=== PATIENT | male | born 1950 | race Caucasian/White ===

== ENCOUNTER → 2016-04-03 | Outpatient (CLI) | payer BC ==
[~2016-04-03] MED LIST: AMOX500C3 PO; CHLO4LIQ TOP; CINN1CAP2 PO; CYAN1DRO IM; DILT120C51 PO; DILT120C99 PO; FENO1TAB PO; FLM4 PO; GABA1CAP PO; GLIP10TA9 PO; HYDR-5688 PO; INSDGI SC; INSDGIPEN SC; LISI10TA PO; LORA-741 PO; LPR25 PO; METF-384 PO; METO-551 PO; METO50TA16 PO; METO50TA7 PO; MULT-506 PO; MUPIOIN4 TOP; NVLGI/PEN SC; OMEG12006 PO; PREG1CAP70 PO; ROSU5TAB PO; SIMV20TA2 PO; SULF-183 PO; TAMS0.4C38 PO; TRAM-10 PO; WARF-285 PO; WARF3TAB6 PO
[2016-04-03 09:58] LABS: URINE APPEARANCE CLEAR (CLEAR); URINE BILIRUBIN NEG (NEG); URINE NITRITE NEG (NEG); URINE PH 5.5 (4.5-7.5); URINE SPECIFIC GRAVITY 1.014 (1.000-1.030); UROBILINOGEN NEG (NEG)
[2016-04-03 10:00] LABS: BLOOD UREA NITROGEN 29 mg/dl (7-18); GLUCOSE 131 mg/dl (70-99)
[2016-04-03 10:01] LABS: ALT/SGPT 26 U/L (12-78); AST/SGOT 24 U/L (15-37); CALCIUM 9.5 mg/dl (8.5-10.1); CARBON DIOXIDE 26 mmol/L (21-32); CHLORIDE 108 mmol/L (98-107); CHOLESTEROL 154 mg/dl (0-200); POTASSIUM 4.5 mmol/L (3.5-5.1); SODIUM 143 mmol/L (136-145)
[2016-04-03 10:03] LABS: MANUAL MICROSCOPIC REQUIRED? NO; REVIEW REQ? NO; URINE COLOR STRAW
[2016-04-03 10:05] LABS: ALB/GLOB RATIO 1.1 (0.9-2); ALKALINE PHOSPHATASE 56 U/L (45-117); CHOLESTEROL/HDL RATIO 6.2; HDL CHOLESTEROL 25 mg/dl; LDL CHOLESTEROL CALCULATED 89 mg/dl; PHOSPHORUS 2.9 mg/dl (2.5-4.9); TRIGLYCERIDES 200 mg/dl (0-150); VERY LOW DENSITY LIPOPROT CALC 40 mg/dl
== END | disposition home or self-care (01) ==
LOC: C.LAB1850 07:16
PROVIDERS: ATTEND Internal Medicine
DX: N18.3 Chronic kidney disease, stage 3 (moderate) (principal); E78.5 Hyperlipidemia, unspecified; Z12.5 Encounter for screening for malignant neoplasm of prostate; N40.0 Benign prostatic hyperplasia without lower urinary tract symptoms

== ENCOUNTER → 2016-05-13 | Outpatient (CLI) | payer BC ==
--- NOTE | 2016-05-13 16:54 | DIAGNOSTIC IMAGING REPORT ---
ABDOMEN AND PELVIS CT WITHOUT CONTRAST CT DOSE: 1108.51 mGycm HISTORY: R31.9 [id number] Stage III chronic kidney [id number] Blood TECHNIQUE: Multiaxial CT images of the abdomen and pelvis were performed without contrast. COMPARISON STUDY: 10/25/2006 FINDINGS: Mild dependent basilar atelectasis. Slightly progressive renal cystic change bilaterally splenic cyst medial aspect left kidney. Bladder is negative for distention. Gallbladder is negative for distention. Mildly progressive bilateral renal cystic change. Mild renal cortical scarring bilaterally. 1.6 cm nonobstructing calcification central renal pelvis. The adrenal glands are normal. Ureters normal in course and caliber. No evidence for an obstructing urinary tract calculus. Nonobstructive bowel pattern. Normal appendix. IMPRESSION: 1. Nonobstructing left renal pelvic calcification. 2. Bilateral renal cystic changes somewhat progressive compared to the prior study of 2006. 3. No evidence for hydronephrosis. 4. Study is otherwise negative. Electronically signed by: Flash Milian M.D. 05/13/2016 4:53 PM Dictated Date/Time: 05/13/2016 4:49 PM
[2016-05-13 17:15] LABS: BASO % 0.3 %; BASO ABS # 0.03 K/uL (0-0.2); COMPLETE YES; EOS % 1.6 %; IG% 0.3 %; LYMPH % 18.3 %; LYMPH ABS # 2.04 K/uL (1.2-3.4); MEAN CELL VOLUME 92.6 fL (80-100); MEAN CORPUSCULAR HEMOGLOBIN 31.7 pg (25-34); MEAN CORPUSCULAR HGB CONC 34.3 g/dl (32-36); MEAN PLATELET VOLUME 10.1 fL (7.4-10.4); MONO % 11.5 %; PLATELET COUNT 310 K/uL (130-400); RED BLOOD COUNT 4.32 M/uL (4.7-6.1); WHITE BLOOD COUNT 11.12 K/uL (4.8-10.8)
[2016-05-13 17:36] LABS: BLOOD UREA NITROGEN 33 mg/dl (7-18); BUN/CREATININE RATIO 14.8 (10-20); CARBON DIOXIDE 25 mmol/L (21-32); CHLORIDE 108 mmol/L (98-107); GLUCOSE 65 mg/dl (70-99); POTASSIUM 4.5 mmol/L (3.5-5.1); SODIUM 141 mmol/L (136-145)
[2016-05-14 06:17] LABS: ESTIMATED AVERAGE GLUCOSE 137 mg/dl; HA1C FLAG Normal (Normal)
== END | disposition home or self-care (01) ==
LOC: C.CTS 16:28
PROVIDERS: ATTEND Physician Assistant
DX: K92.1 Melena (principal); N18.3 Chronic kidney disease, stage 3 (moderate); R31.9 Hematuria, unspecified; R10.814 Left lower quadrant abdominal tenderness

== ENCOUNTER → 2016-05-22 | Outpatient (CLI) | payer BC | END | disposition home or self-care (01) | LOC: C.LAB 08:16 | PROVIDERS: ATTEND Internal Medicine | DX: E53.8 Deficiency of other specified B group vitamins (principal) ==

== ENCOUNTER → 2016-05-22 | Outpatient (CLI) | payer BC ==
[2016-05-22 12:22] LABS: URINE APPEARANCE CLEAR (CLEAR); URINE BILIRUBIN NEG (NEG); URINE NITRITE NEG (NEG); URINE PH 6.5 (4.5-7.5); URINE SPECIFIC GRAVITY 1.017 (1.000-1.030); UROBILINOGEN NEG (NEG)
[2016-05-22 12:23] LABS: MANUAL MICROSCOPIC REQUIRED? NO; REVIEW REQ? NO; URINE COLOR AMBER
--- NOTE | 2016-05-22 12:26 | DIAGNOSTIC IMAGING REPORT ---
CHEST 2 VIEWS ROUTINE CLINICAL HISTORY: Left-sided kidney stone. Preoperative chest. COMPARISON STUDY: 12/03/2012 FINDINGS: The right-sided PICC catheter is been removed. A valve ring is again visualized. The heart is mildly enlarged. There is no failure. There is no focal pulmonary consolidation. No pleural effusions are visualized. There are postsurgical changes in the right shoulder.[ IMPRESSION: No active disease in the chest. Electronically signed by: Sridhar Peterson M.D. 05/22/2016 12:24 PM Dictated Date/Time: 05/22/2016 12:23 PM
== END | disposition home or self-care (01) ==
LOC: C.CPL 11:21
PROVIDERS: ATTEND Urology
DX: N20.0 Calculus of kidney (principal)

== ENCOUNTER → 2016-05-28 | Outpatient (CLI) | payer BC ==
[~2016-05-28] MED LIST changes: -CHLO4LIQ TOP; -CINN1CAP2 PO; -GABA1CAP PO; -GLIP10TA9 PO; -METF-384 PO; -METO-551 PO; -MULT-506 PO; -MUPIOIN4 TOP; -SULF-183 PO
--- NOTE | 2016-05-28 17:13 | DIAGNOSTIC IMAGING REPORT ---
KUB CLINICAL HISTORY: Left-sided kidney stone. COMPARISON STUDY: CT of the abdomen and pelvis May 13, 2016. FINDINGS: A left pelvic calcification was shown to represent a phlebolith on prior CT. The large left renal calculus shown on prior CT is not well visualized on this exam but could be obscured by stool. IMPRESSION: Left renal calculus shown on prior CT not definitively visualized on this exam, possibly due to radiographic technique or obscuration by stool. Electronically signed by: Mc Concepcion M.D. 05/28/2016 5:11 PM Dictated Date/Time: 05/28/2016 5:06 PM
== END | disposition home or self-care (01) ==
LOC: C.RAD 16:45
PROVIDERS: ATTEND Urology
DX: N20.0 Calculus of kidney (principal)

== ENCOUNTER → 2016-05-29 | Day surgery (SDC) | payer BC ==
[2016-05-26 09:46] VITALS: Ht 167.6 cm; Wt 102.3 kg
[~2016-05-29] VITALS: Ht 167.6 cm; Wt 102.3 kg
[~2016-05-29] MED LIST changes: +CIPROFLOXACIN 400MG / D5W IV SCH; +DEXAMETHASONE SOD INJ 4 MG/ML VIAL ONE; +FENTANYL CITRATE INJ 50 MCG/1 ML 2 ML VIAL ONE; +LACTATED RINGER'S 1000ML 1,000 ML IV SCH; +LIDOCAINE HCL 2% 2 ML VIAL (20MG/ML) ONE; +MIDAZOLAM HCL 1 MG/ML 2ML VIAL ONE; +ONDANSETRON INJ 2 MG/ML 2 ML VIAL ONE; +PROPOFOL IV EMULSION 10 MG/ML 20 ML VIAL IV ONE
[2016-05-29 06:28] VITALS: BP 93/67; PULSE 63; TEMP 36.7; O2SAT 94
[2016-05-29 07:12] LABS: INR 1.4 (0.9-1.1); PROTHROMBIN TIME (PATIENT) 15.4 SECONDS (9.0-12.0)
== END | disposition home or self-care (01) ==
LOC: X.SURG 06:05
PROVIDERS: ATTEND Urology
DX: N20.0 Calculus of kidney (principal); N40.0 Benign prostatic hyperplasia without lower urinary tract symptoms; N28.1 Cyst of kidney, acquired

== ENCOUNTER → 2016-07-07 | Outpatient (CLI) | payer BC ==
[~2016-07-07] MED LIST changes: -CIPROFLOXACIN 400MG / D5W IV SCH; -DEXAMETHASONE SOD INJ 4 MG/ML VIAL ONE; -FENTANYL CITRATE INJ 50 MCG/1 ML 2 ML VIAL ONE; -LACTATED RINGER'S 1000ML 1,000 ML IV SCH; -LIDOCAINE HCL 2% 2 ML VIAL (20MG/ML) ONE; -MIDAZOLAM HCL 1 MG/ML 2ML VIAL ONE; -ONDANSETRON INJ 2 MG/ML 2 ML VIAL ONE; -PROPOFOL IV EMULSION 10 MG/ML 20 ML VIAL IV ONE
[2016-07-07 09:55] LABS: ALT/SGPT 18 U/L (12-78); BLOOD UREA NITROGEN 34 mg/dl (7-18); BUN/CREATININE RATIO 17.1 (10-20); CARBON DIOXIDE 25 mmol/L (21-32); CHLORIDE 109 mmol/L (98-107); CHOLESTEROL 134 mg/dl (0-200); GLUCOSE 118 mg/dl (70-99); POTASSIUM 4.5 mmol/L (3.5-5.1); SODIUM 141 mmol/L (136-145); TRIGLYCERIDES 174 mg/dl (0-150); VERY LOW DENSITY LIPOPROT CALC 35 mg/dl
[2016-07-07 09:59] LABS: AST/SGOT 18 U/L (15-37); CHOLESTEROL/HDL RATIO 6.1; HDL CHOLESTEROL 22 mg/dl; LDL CHOLESTEROL CALCULATED 77 mg/dl
[2016-07-07 10:00] LABS: CALCIUM 9.5 mg/dl (8.5-10.1)
[2016-07-07 10:01] LABS: INR 2.1 (0.9-1.1); PROTHROMBIN TIME (PATIENT) 23.6 SECONDS (9.0-12.0)
== END | disposition home or self-care (01) ==
LOC: C.LAB1850 07:45
PROVIDERS: ATTEND Internal Medicine
DX: N20.0 Calculus of kidney (principal); N18.3 Chronic kidney disease, stage 3 (moderate); E78.5 Hyperlipidemia, unspecified; E53.8 Deficiency of other specified B group vitamins

== ENCOUNTER 2016-08-03 15:45 | Inpatient (IN) | payer BC, OTHER ==
[~2016-08-03] VITALS: Ht 167.6 cm; Wt 103.2 kg
[~2016-08-03 15:45] MED LIST changes: -DILT120C51 PO; -DILT120C99 PO; -FLM4 PO; -HYDR-5688 PO; -INSDGI SC; -LORA-741 PO; -METO50TA16 PO; -METO50TA7 PO; -ROSU5TAB PO
[2016-08-03] MEDS ORDERED: METOPROLOL TARTRATE 1 MG/ML VIAL IV STA (16:05)
--- NOTE | 2016-08-03 16:13 | EMERGENCY ROOM VISIT NOTE ---
History Report prepared by Madhuri: Amol Reddy Under the Supervision of: Dr. Braxton Hirsch M.D. First contact with patient: 16:01 Chief Complaint: CARDIAC ASSESSMENT Stated Complaint: A-FIB,RAPID HEARTRATE,SOB History of Present Illness The patient is a 66 year old male who presents to the Emergency Room with complaints of persistent heart palpitations starting a few weeks ago. He reports some tachycardia. His heart rate was 160 bpm. The patient also complains of shortness of breath starting a few weeks ago. He started having left sided chest pain about a week ago. He describes the pain to be similar to a twinge. He was evaluated by his driver manager today who referred him to the Emergency Room. 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 He has a history of A Flutter/A Fib occurring intermittently for the past few years. As per daughter, his last episode of A Fib was about 6 months ago. The patient is on Metoprolol 25 mg twice a day and Coumadin. The patient denies nausea, vomiting, abdominal pain, or any other complaints. Source of History: patient Onset: a few weeks ago Position: chest Symptom Intensity: 160 bpm Quality: other (heart palpitations; tachycardia) Timing: other (persistent) Associated Symptoms: + chest pain, + SOB, No nausea, No vomiting, No abdominal pain Review of Systems All systems have been listed, reviewed, and are negative other than those previously mentioned. Please see Additional Medical History Sheet. Past Medical & Surgical Medical Problems: (1) ANEMIA NOS (2) Atrial fibrillation with rapid ventricular response (3) ATRIAL FLUTTER (4) CALCULUS OF URETER (5) CONGESTIVE HEART FAILURE NOS (6) CORONARY ATHEROSCLEROSIS OF [place] CORONARY VESSEL (7) DIAB W NEURO MANIFEST, TYPE II OR UNSPEC TYPE, NOT UNCNTRLD (8) HEART VALVE REPLAC NEC (9) HYPERLIPIDEMIA NEC/NOS (10) HYPERTENSION NOS (11) NEUROPATHY IN DIABETES Family History Diabetes mellitus FH: heart disease Hypertension Social History Smoking Status: Never Smoker Alcohol Use: occasionally Drug Use: none Marital Status: Housing Status: lives with family Occupation Status: retired Current/Historical Medications Scheduled Cyanocobalamin (Vitamin B12), 1 DOSE IM MONTHLY Fenofibrate (Tricor), 160 MG PO QPM Insulin Aspart (Novolog Flexpen), 30 UNITS SC TIDM Insulin Glargine (Lantus Solostar), 60 UNITS SC HS Lisinopril (Prinivil), 10 MG PO QAM Metoprolol Tartrate (Lopressor), 25 MG PO BID [place]-3 Fatty Acids ([place] 3), 1,200 MG PO QAM Pregabalin (Lyrica), 150 MG PO TID Simvastatin (Zocor), 20 MG PO QPM Tamsulosin HCl (Tamsulosin HCl), 0.4 MG PO DAILY Warfarin Sod (Jantoven), 3 MG PO 5XWK Warfarin Sodium (Warfarin Sodium), 1.5 MG PO 2XWK Scheduled PRN Amoxicillin (Amoxil), 4 MG PO DIRECTED PRN for dental procedure Tramadol (Ultram), 50 MG PO Q8 PRN for Pain Allergies Coded Allergies: No Known Allergies (Unverified , 08/03/16) Physical Exam Vital Signs Date Time Temp Pulse Resp B/P (MAP) Pulse Ox O2 Delivery O2 Flow Rate FiO2 08/03/16 18:02 101/64 08/03/16 18:02 134 22 101/64 94 Room Air 08/03/16 18:00 128 24 95 08/03/16 17:46 102/78 08/03/16 17:45 75 18 98 08/03/16 17:31 109/76 08/03/16 17:30 124 18 100 08/03/16 17:24 102/80 08/03/16 17:21 115/97 08/03/16 17:20 112/60 08/03/16 17:16 107/84 08/03/16 17:15 119 21 98 08/03/16 17:14 105/77 08/03/16 17:11 104/65 08/03/16 17:10 95/70 08/03/16 17:06 109/77 08/03/16 17:05 100/84 08/03/16 17:02 109/79 08/03/16 17:00 127 16 98 08/03/16 16:59 105/90 08/03/16 16:56 100/70 08/03/16 16:54 103/62 08/03/16 16:51 114/68 08/03/16 16:49 104/71 08/03/16 16:47 101/77 08/03/16 16:45 123 23 97 08/03/16 16:43 91/71 08/03/16 16:39 84/50 08/03/16 16:38 89/77 08/03/16 16:32 94/53 08/03/16 16:30 130 25 97 08/03/16 16:29 99/80 08/03/16 16:27 99/69 08/03/16 16:24 112/83 08/03/16 16:21 106/83 08/03/16 16:19 111/82 08/03/16 16:18 154 22 111/82 98 Nasal Cannula 2.0 08/03/16 16:18 99/68 08/03/16 16:18 154 111/83 08/03/16 16:15 138 21 98 08/03/16 16:11 97 Nasal Cannula 2.0 08/03/16 16:09 154 08/03/16 16:06 94 Room Air 08/03/16 16:03 37.1 155 24 113/82 94 Room Air 08/03/16 16:01 113/79 Physical Exam GENERAL: Patient awake, alert, oriented x 3. Appears to be in minimal distress. SKIN: No erythema, pallor, cyanosis or rash HEENT: Normal head, pupils equal, reactive to light and accommodation. Neck: Without adenopathy, no neck vein distention. LUNGS: Clear to auscultation. No wheezes, no rales, no rhonchi. HEART: Irregularly irregular, rapid rate. No murmurs. No gallops. No rubs ABDOMEN: Soft, nontender. EXTREMITIES: No signs of trauma. No pedal or pretibial edema. No calf or thigh tenderness. NEUROLOGIC: Cranial nerves II-XII within normal limits. No gross motor sensory function deficits. Medical Decision & Procedures ER Provider Diagnostic Interpretation: X ray results are stated below per my interpretation and the radiologist's interpretation. CHEST ONE VIEW PORTABLE CLINICAL HISTORY: a flutter SHORTNESS OF BREATH COMPARISON STUDY: 05/22/2016 FINDINGS: The heart is enlarged. There is a valvular prosthesis. There is mild central pulmonary vascular congestion. There are minimal right basal airspace opacities. Diagnostic considerations include focal edema, atelectasis, or a minimal pneumonia. There is no significant pleural fluid.[ Postsurgical changes involve the right shoulder. IMPRESSION: 1. Cardiomegaly and mild central pulmonary vascular congestion 2. Minimal right basilar airspace opacities. Clinical and radiographic follow-up is recommended. Electronically signed by: Sridhar Peterson M.D. 08/03/2016 4:25 PM Dictated Date/Time: 08/03/2016 4:24 PM Laboratory Results 08/03/16 16:12 Red Blood Count 4.52, Mean Corpuscular Volume 95.1, Mean Corpuscular Hemoglobin 31.0, Mean Corpuscular Hemoglobin Concent 32.6, Mean Platelet Volume 10.5, Neutrophils (%) (Auto) 59.5, Lymphocytes (%) (Auto) 27.1, Monocytes (%) (Auto) 11.4, Eosinophils (%) (Auto) 1.5, Basophils (%) (Auto) 0.3, Neutrophils # (Auto ) 6.20, Lymphocytes # (Auto) 2.82, Monocytes # (Auto) 1.19, Eosinophils # (Auto ) 0.16, Basophils # (Auto) 0.03 08/03/16 16:12 Test 08/03/16 16:12 White Blood Count 10.42 K/uL (4.8-10.8) Red Blood Count 4.52 M/uL (4.7-6.1) Hemoglobin 14.0 g/dL (14.0-18.0) Hematocrit 43.0 % (42-52) Mean Corpuscular Volume 95.1 fL (80-100) Mean Corpuscular Hemoglobin 31.0 pg (25-34) Mean Corpuscular Hemoglobin Concent 32.6 g/dl (32-36) Platelet Count 296 K/uL (130-400) Mean Platelet Volume 10.5 fL (7.4-10.4) Neutrophils (%) (Auto) 59.5 % Lymphocytes (%) (Auto) 27.1 % Monocytes (%) (Auto) 11.4 % Eosinophils (%) (Auto) 1.5 % Basophils (%) (Auto) 0.3 % Neutrophils # (Auto) 6.20 K/uL (1.4-6.5) Lymphocytes # (Auto) 2.82 K/uL (1.2-3.4) Monocytes # (Auto) 1.19 K/uL (0.11-0.59) Eosinophils # (Auto) 0.16 K/uL (0-0.5) Basophils # (Auto) 0.03 K/uL (0-0.2) RDW Standard Deviation 51.5 fL (36.4-46.3) RDW Coefficient of Variation 14.7 % (11.5-14.5) Immature Granulocyte % (Auto) 0.2 % Immature Granulocyte # (Auto) 0.02 K/uL (0.00-0.02) Prothrombin Time 24.3 SECONDS (9.0-12.0) Prothromb Time International Ratio 2.2 (0.9-1.1) Activated Partial Thromboplast Time 34.7 SECONDS (21.0-31.0) Partial Thromboplastin Ratio 1.3 Anion Gap 8.0 mmol/L (3-11) Est Creatinine Clear Calc Drug Dose 45.8 ml/min Estimated GFR () 41.7 Estimated GFR (Non- 35.9 BUN/Creatinine Ratio 12.8 (10-20) Calcium Level 9.4 mg/dl (8.5-10.1) Total Bilirubin 0.6 mg/dl (0.2-1) Aspartate Amino Transf (AST/SGOT) 18 U/L (15-37) Alanine Aminotransferase (ALT/SGPT) 22 U/L (12-78) Alkaline Phosphatase 57 U/L (45-117) Troponin I < 0.015 ng/ml (0-0.045) Total Protein 7.7 gm/dl (6.4-8.2) Albumin 4.1 gm/dl (3.4-5.0) Globulin 3.6 gm/dl (2.5-4.0) Albumin/Globulin Ratio 1.1 (0.9-2) Thyroid Stimulating Hormone (TSH) 1.000 uIu/ml (0.300-4.500) Laboratory results as stated above per my review. Medications Administered Medications (Trade) Dose Ordered Sig/Katarzyna Route Start Time Stop Time Status Last Admin Dose Admin Metoprolol Tartrate (Lopressor Iv) 15 mg NOW STAT IV 08/03/16 16:05 08/03/16 16:08 DC 08/03/16 16:18 15 MG Sodium Chloride 1,000 ml @ 1,000 mls/hr Q1H ONCE IV 08/03/16 17:15 08/03/16 18:16 DC 08/03/16 17:36 1,000 MLS/HR Metoprolol Tartrate (Lopressor Tab) 50 mg NOW STAT PO 08/03/16 17:06 08/03/16 17:08 DC 08/03/16 17:31 50 MG ECG Indication: chest pain, palpitations, SOB/dyspnea Rate (beats per minute): 142 Rhythm: atrial flutter (with variable block) Findings: nonspecific-ST abn, other (Rightward axis) ED Course 1601: Past medical records reviewed. The patient was evaluated in room B01. A complete history and physical examination was performed. 1605: Lopressor IV 5 mg IV X 3 1609: I reevaluated the patient who is resting comfortably. 1706: Lopressor Tab 50 mg PO 1715: Sodium Chloride 1000 ml @ 1000 mls/hr IV 1724: Upon reevaluation, the patient is continues to be in A-Flutter.I discussed today's findings with the patient and his daughter. They verbalized agreement of the treatment plan. 1741: I spoke with Dr. Tanya Bradford of the [facility] to evaluate the patient for further management. Medical Decision Differential diagnosis includes but is not limited to A-Fib, A-Flutter, metabolic disorder, acute myocardial infarction. Medication Reconciliation: I attest that I have personally reviewed the patient' s current medication list. The patient has a prior history of atrial fibrillation/flutter. He is currently taking Coumadin. The patient now is here with some mild chest pain, weakness and slight shortness of breath. Ventricular rate is greater than 120. The patient was given multiple doses of IV metoprolol followed by an oral dose of the same. Heart rate did come down slightly but he did not convert. Ventricular rate remained above 100. Multiple other labs, EKG and imaging were obtained. Please see above. I discussed care with the patient and with the hospitalist. Consults Time Called: 1730 Consulting Physician: Dr. Tanya Bradford of the [facility] Returned Call: [address] Tanya Bradford of the [facility] to evaluate the patient for further management. Impression Primary Impression: Atrial flutter Additional Impressions: Chronic kidney disease Diabetes Scribe Attestation The scribe's documentation has been prepared under my direction and personally reviewed by me in its entirety. I confirm that the note above accurately reflects all work, treatment, procedures, and medical decision making performed by me. Departure Information Dispostion Being Evaluated By Hospitalist Referrals Pro,Marco Stahl M.D. (PCP) Patient Instructions [facility] Problem Qualifiers
[2016-08-03 16:22] LABS: BASO % 0.3 %; BASO ABS # 0.03 K/uL (0-0.2); COMPLETE YES; EOS % 1.5 %; IG% 0.2 %; LYMPH % 27.1 %; LYMPH ABS # 2.82 K/uL (1.2-3.4); MEAN CELL VOLUME 95.1 fL (80-100); MEAN CORPUSCULAR HGB CONC 32.6 g/dl (32-36); MEAN PLATELET VOLUME 10.5 fL (7.4-10.4); MONO % 11.4 %; NEUT % 59.5 %; PLATELET COUNT 296 K/uL (130-400); RED BLOOD COUNT 4.52 M/uL (4.7-6.1); WHITE BLOOD COUNT 10.42 K/uL (4.8-10.8)
--- NOTE | 2016-08-03 16:27 | DIAGNOSTIC IMAGING REPORT ---
CHEST ONE VIEW PORTABLE CLINICAL HISTORY: a flutter SHORTNESS OF BREATH COMPARISON STUDY: 05/22/2016 FINDINGS: The heart is enlarged. There is a valvular prosthesis. There is mild central pulmonary vascular congestion. There are minimal right basal airspace opacities. Diagnostic considerations include focal edema, atelectasis, or a minimal pneumonia. There is no significant pleural fluid.[ Postsurgical changes involve the right shoulder. IMPRESSION: 1. Cardiomegaly and mild central pulmonary vascular congestion 2. Minimal right basilar airspace opacities. Clinical and radiographic follow-up is recommended. Electronically signed by: Sridhar Peterson M.D. 08/03/2016 4:25 PM Dictated Date/Time: 08/03/2016 4:24 PM
[2016-08-03 16:35] LABS: INR 2.2 (0.9-1.1); PARTIAL THROMBOPLASTIN RATIO 1.3; PROTHROMBIN TIME (PATIENT) 24.3 SECONDS (9.0-12.0)
[2016-08-03 16:42] LABS: ALT/SGPT 22 U/L (12-78); AST/SGOT 18 U/L (15-37); BLOOD UREA NITROGEN 24 mg/dl (7-18); BUN/CREATININE RATIO 12.8 (10-20); CALCIUM 9.4 mg/dl (8.5-10.1); CARBON DIOXIDE 24 mmol/L (21-32); CHLORIDE 111 mmol/L (98-107); GLUCOSE 59 mg/dl (70-99); POTASSIUM 4.5 mmol/L (3.5-5.1); SODIUM 143 mmol/L (136-145)
[2016-08-03 16:54] LABS: ALB/GLOB RATIO 1.1 (0.9-2); ALKALINE PHOSPHATASE 57 U/L (45-117)
[2016-08-03] MEDS ORDERED: METOPROLOL TARTRATE 50 MG TAB PO STA (17:06)
[2016-08-03] MEDS ORDERED: SODIUM CHLORIDE 0.9% 1000ML 1,000 ML IV ONE (17:15)
[2016-08-03] MEDS ORDERED: NITROGLYCERIN 0.4 MG SL PER TAB CHARGE SL PRN (18:00)
[2016-08-03] MEDS ORDERED: ONDANSETRON INJ 2 MG/ML 2 ML VIAL IV PRN (18:00)
[2016-08-03] MEDS ORDERED: ZOLPIDEM TARTRATE 5 MG TAB PO PRN ×2 (18:00)
[2016-08-03] MEDS ORDERED: ALUMINUM/MAGNESIUM/SIMETH (MAALOX MAX) 30 ML UDC PO PRN (18:00)
[2016-08-03] MEDS ORDERED: MAGNESIUM HYDROXIDE SUSP 30 ML UDC PO PRN (18:00)
[2016-08-03] MEDS ORDERED: ACETAMINOPHEN 325 MG TAB PO PRN (18:00)
[2016-08-03] MEDS ORDERED: MoRPHine SULFATE 2 MG/ML CARP IV PRN (18:00)
[2016-08-03] MEDS ORDERED: POLYETHYLENE (MIRALAX) 17 GM PACK PO PRN (18:00)
[2016-08-03] MEDS ORDERED: DILTIAZEM BOLUS / DRIP IV STA ×2 (18:35→19:02)
[2016-08-03 18:40] VITALS: BP_SYST 122; PULSE 108; TEMP 36.6; O2SAT 94; Ht 167.6 cm; Wt 103.2 kg
[2016-08-03] MEDS ORDERED: TRAMADOL HCL 50 MG TAB PO PRN (18:45)
[2016-08-03 19:08] VITALS: O2SAT 97
[2016-08-03] MEDS ORDERED: PHARMACY GLYCEMIC MGMT CONSULT SCH (19:22)
[2016-08-03] MEDS ORDERED: DILTIAZEM HCL INJ 125 MG in DEXTROSE 5% 100ML IV PRN (19:30)
--- NOTE | 2016-08-03 19:38 | History and Physical ---
History & Physical Date & Time of Service: Aug 03, 2016 at 19:05 Chief Complaint: A-Fib,Rapid Heartrate,Sob Primary Care Physician: Marco Velasco M.D. History of Present Illness Source: patient, family 66M with a PMHx of Afib on Coumadin, Mitral Valve replacement, CKD, DM2, neuropathy and non obstructing left calculus was sent from his nephrologists office for Rapid heart rate. Pt states that over the past 3 weeks he has been feeling very dyspneic on exertion. He also for the past two weeks has been feeling a slight "twinge" on the left side of his chest that only resolved after he got to the ER. In the ER he received 15mg IV lopressor and 50mg PO Lopressor. Pt is on 25mg BID Lopressor - which according to him his doctor has been weaning because he has been tired and lethargic. According to pt the last EKG he had was one month ago and he was in sinus rhythm. Pt has been following with Dr. Naranjo every 6 months for his A. Fib. Pt is taking 1.5mg x twice weekly + 3mg 5x weekly dose of Coumadin for his Afib. Pt also has chronic hematuria from a 1.5cm non obstructing left renal stone. Urology was going to do a lithotripsy but didn't because his INR was too high. ROS: Pt denies chest pain, denies SOB at rest, + chronic tingling in his LE, + hand swelling, legs are chronically swollen. Denies ever being diagnosed with a lung disease such as COPD. SHx: Denies smoking. 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 Past Medical/Surgical History Medical Problems: (1) ANEMIA NOS Status: Chronic (2) ATRIAL FLUTTER Status: Chronic (3) CALCULUS OF URETER Status: Chronic (4) CONGESTIVE HEART FAILURE NOS Status: Chronic (5) CORONARY ATHEROSCLEROSIS OF [place] CORONARY VESSEL Status: Chronic (6) DIAB W NEURO MANIFEST, TYPE II OR UNSPEC TYPE, NOT UNCNTRLD Status: Chronic (7) HEART VALVE REPLAC NEC Status: Chronic (8) HYPERLIPIDEMIA NEC/NOS Status: Chronic (9) HYPERTENSION NOS Status: Chronic (10) NEUROPATHY IN DIABETES Status: Chronic Family History Diabetes mellitus FH: heart disease Hypertension Social History Smoking Status: Never Smoker Drug Use: none Marital Status: Occupational Status: retired Immunizations History of Influenza Vaccine: Yes History of Tetanus Vaccine?: utd History of Pneumococcal: Yes History of Hepatitis B Vaccine: Unknown Multi-Drug Resistant Organisms History of MDRO: Yes Type of MDRO: MRSA Allergies Coded Allergies: No Known Allergies (Unverified , 08/03/16) Home Medications Scheduled Cyanocobalamin (Vitamin B12), 1 DOSE IM MONTHLY Fenofibrate (Tricor), 160 MG PO QPM Insulin Aspart (Novolog Flexpen), 30 UNITS SC TIDM Insulin Glargine (Lantus Solostar), 60 UNITS SC HS Lisinopril (Prinivil), 10 MG PO QAM Metoprolol Tartrate (Lopressor), 25 MG PO BID [place]-3 Fatty Acids ([place] 3), 1,200 MG PO QAM Pregabalin (Lyrica), 150 MG PO TID Simvastatin (Zocor), 20 MG PO QPM Tamsulosin HCl (Tamsulosin HCl), 0.4 MG PO DAILY Warfarin Sod (Jantoven), 3 MG PO 5XWK Warfarin Sodium (Warfarin Sodium), 1.5 MG PO 2XWK Scheduled PRN Amoxicillin (Amoxil), 4 MG PO DIRECTED PRN for dental procedure Tramadol (Ultram), 50 MG PO Q8 PRN for Pain Review of Systems Constitutional: No fever, No chills, No weight loss Respiratory: + shortness of breath, No cough, No sputum Abdomen: No nausea, No vomiting, No diarrhea, No constipation Musculoskeletal: No joint pain, No muscle pain Physical Exam Vital Signs Date Time Temp Pulse Resp B/P (MAP) Pulse Ox O2 Delivery O2 Flow Rate FiO2 08/03/16 18:59 125 95/76 99 08/03/16 18:47 105/83 08/03/16 18:45 119 22 88 08/03/16 18:33 126/83 08/03/16 18:30 122 20 100 08/03/16 18:16 98/66 08/03/16 18:15 134 24 99 08/03/16 18:02 101/64 08/03/16 18:02 134 22 101/64 94 Room Air 08/03/16 18:00 128 24 95 08/03/16 17:46 102/78 08/03/16 17:45 75 18 98 6/19/17 17:31 109/76 08/03/16 17:30 124 18 100 08/03/16 17:24 102/80 08/03/16 17:21 115/97 08/03/16 17:20 112/60 08/03/16 17:16 107/84 08/03/16 17:15 119 21 98 08/03/16 17:14 105/77 08/03/16 17:11 104/65 08/03/16 17:10 95/70 08/03/16 17:06 109/77 08/03/16 17:05 100/84 08/03/16 17:02 109/79 08/03/16 17:00 127 16 98 08/03/16 16:59 105/90 08/03/16 16:56 100/70 08/03/16 16:54 103/62 08/03/16 16:51 114/68 08/03/16 16:49 104/71 08/03/16 16:47 101/77 08/03/16 16:45 123 23 97 08/03/16 16:43 91/71 08/03/16 16:39 84/50 08/03/16 16:38 89/77 08/03/16 16:32 94/53 08/03/16 16:30 130 25 97 08/03/16 16:29 99/80 08/03/16 16:27 99/69 08/03/16 16:24 112/83 08/03/16 16:21 106/83 08/03/16 16:19 111/82 08/03/16 16:18 154 22 111/82 98 Nasal Cannula 2.0 08/03/16 16:18 99/68 08/03/16 16:18 154 111/83 08/03/16 16:15 138 21 98 08/03/16 16:11 97 Nasal Cannula 2.0 08/03/16 16:09 154 08/03/16 16:06 94 Room Air 08/03/16 16:03 37.1 155 24 113/82 94 Room Air 08/03/16 16:01 113/79 General Appearance: WD/WN, no apparent distress, + obese Respiratory/Chest: chest non-tender, normal breath sounds, no respiratory distress, no accessory muscle use, + pertinent finding (slight posterior wheezing in bilateral lung dorsey) Cardiovascular: no JVD, normal peripheral pulses, + tachycardia, + irregularly irregular Abdomen/GI: normal bowel sounds, non tender, soft, no organomegaly Back: no CVA tenderness Extremities/Musculoskelatal: + pertinent finding (2+ pitting edema in the lower extremities bilaterally. ) Neurologic/Psych: alert, normal mood/affect, normal reflexes, oriented x 3 Diagnostics Laboratory Results Results Past 24 Hours Test 08/03/16 16:12 Range/Units White Blood Count 10.42 4.8-10.8 K/uL Red Blood Count 4.52 4.7-6.1 M/uL Hemoglobin 14.0 14.0-18.0 g/dL Hematocrit 43.0 42-52 % Mean Corpuscular Volume 95.1 80-100 fL Mean Corpuscular Hemoglobin 31.0 25-34 pg Mean Corpuscular Hemoglobin Concent 32.6 32-36 g/dl Platelet Count 296 130-400 K/uL Mean Platelet Volume 10.5 7.4-10.4 fL Neutrophils (%) (Auto) 59.5 % Lymphocytes (%) (Auto) 27.1 % Monocytes (%) (Auto) 11.4 % Eosinophils (%) (Auto) 1.5 % Basophils (%) (Auto) 0.3 % Neutrophils # (Auto) 6.20 1.4-6.5 K/uL Lymphocytes # (Auto) 2.82 1.2-3.4 K/uL Monocytes # (Auto) 1.19 0.11-0.59 K/uL Eosinophils # (Auto) 0.16 0-0.5 K/uL Basophils # (Auto) 0.03 0-0.2 K/uL RDW Standard Deviation 51.5 36.4-46.3 fL RDW Coefficient of Variation 14.7 11.5-14.5 % Immature Granulocyte % (Auto) 0.2 % Immature Granulocyte # (Auto) 0.02 0.00-0.02 K/uL Prothrombin Time 24.3 9.0-12.0 SECONDS Prothromb Time International Ratio 2.2 0.9-1.1 Activated Partial Thromboplast Time 34.7 21.0-31.0 SECONDS Partial Thromboplastin Ratio 1.3 Sodium Level 143 136-145 mmol/L Potassium Level 4.5 3.5-5.1 mmol/L Chloride Level 111 98-107 mmol/L Carbon Dioxide Level 24 21-32 mmol/L Anion Gap 8.0 3-11 mmol/L Blood Urea Nitrogen 24 7-18 mg/dl Creatinine 1.90 0.60-1.40 mg/dl Est Creatinine Clear Calc Drug Dose 45.8 ml/min Estimated GFR () 41.7 Estimated GFR (Non- 35.9 BUN/Creatinine Ratio 12.8 10-20 Random Glucose 59 70-99 mg/dl Calcium Level 9.4 8.5-10.1 mg/dl Total Bilirubin 0.6 0.2-1 mg/dl Aspartate Amino Transf (AST/SGOT) 18 15-37 U/L Alanine Aminotransferase (ALT/SGPT) 22 12-78 U/L Alkaline Phosphatase 57 45-117 U/L Troponin I < 0.015 0-0.045 ng/ml Total Protein 7.7 6.4-8.2 gm/dl Albumin 4.1 3.4-5.0 gm/dl Globulin 3.6 2.5-4.0 gm/dl Albumin/Globulin Ratio 1.1 0.9-2 Thyroid Stimulating Hormone (TSH) 1.000 0.300-4.500 uIu/ml Diagnostic Radiology CHEST ONE VIEW PORTABLE CLINICAL HISTORY: a flutter SHORTNESS OF BREATH COMPARISON STUDY: 05/22/2016 FINDINGS: The heart is enlarged. There is a valvular prosthesis. There is mild central pulmonary vascular congestion. There are minimal right basal airspace opacities. Diagnostic considerations include focal edema, atelectasis, or a minimal pneumonia. There is no significant pleural fluid.[ Postsurgical changes involve the right shoulder. IMPRESSION: 1. Cardiomegaly and mild central pulmonary vascular congestion 2. Minimal right basilar airspace opacities. Clinical and radiographic follow-up is recommended. Impression Assessment and Plan 66M with a PMHx of known Afib (on Coumadin) and DM2 presents w Afib with RVR. Pt got 15mg IV Lopressor and 50mg oral if Metoprolol and continues to be in Afib. Pt started on a 5mg/hr IV drip of Cardizem (titrate 5mg/hr up every 30 min) with hold parameter of SBP of 90 or HR <90. Echo tomorrow in light of h/ o mitral valve replacement. Cardiology on board. Will start metoprolol 50mg BID tomorrow morning. A Fib with RVR - Pt has likely been in Afib for a few weeks with symptoms when he walks up stairs. At rest he is asymptomatic. Evidence of pulmonary congestion likely 2/ 2 cardiac insufficiency. - Cardiology Consulted. - will start Metoprolol 50mg BID tomorrow 7am. - c/w Coumadin 1.5mg Wed,Wed and Coumadin 3mg M, T,Th,F,Sat. - Diltiazem Drip 5mg/hr, increase 5mg every 30 min, hold parameters SBP <90 and HR < 90. - Echo tomorrow. (h/o mitral valve replacement) DM2 - Sugars are typically between 140-200. - Glycemic control consult. - Diabetic Diet. Elevated Creatinine 2/2 CKD - 1.9 today, chronic baselined around 2.0, sees nephrology. - c/w Lisinopril 10mg daily Hematuria (chronic) - According to pt this is a chronic condition and he's seeing urology for 1.5cm left renal stone removal. Asymptomatic. Denies dysuria. No CVA tenderness. - CT from 05/13/16 "16mm non obstructing stone in the left renal pelvis" - f/u UA. LE Neuropathy - c/w Pregabalin 150mg TID. - c/w Ultram 50mg TID HLD - c/w Simvastatin 20mg daily BPH - c/w Tamsulosin 0.4mg Dispo Tele, DM2 diet Full Code I personally and independently interviewed and examined the patient I reviewed labs and imaging I agree with above mentioned physical exam, History and ROS I discussed and formulated the assessment and plan with Mrs. Marti 66-year-old male P/W A fib rvr ROS is otherwise negative PE as above assessment: Afib with RVR obesity DM clinically suspected CALOS Plan: initiate cardizem drip continue metoprolol po cardiology consult continue anticoagulation James Bradford [facility] VTE Prophylaxis VTE Risk Assessment Done? Y/N: Yes Risk Level: Moderate Resident Involvement: Resident Care Provided Care Provided: Adult Hospital Medicine
[2016-08-03] MEDS ORDERED: GLUCOSE 10 TABS/TUBE PO PRN (19:45)
[2016-08-03] MEDS ORDERED: GLUCOSE 40% GEL 15 GM TUBE PO PRN (19:45)
[2016-08-03] MEDS ORDERED: GLUCAGON FOR INJ 1 MG VIAL SQ PRN (19:45)
[2016-08-03] MEDS ORDERED: DEXTROSE 50% 50 ML SYR IV PRN (19:45)
[2016-08-03] MEDS: INSULIN ASPART 100 UNITS/ML 3 ML PEN SC SCH (21:00)
[2016-08-03] MEDS ORDERED: INSULIN GLARGINE SOLOSTAR 100 UNITS/ML 3 ML PEN SC SCH (21:00)
[2016-08-03] MEDS: WARFARIN SOD 3 MG TAB PO SCH (21:27)
[2016-08-03] MEDS: SIMVASTATIN 20 MG TAB PO SCH (21:27)
[2016-08-03] MEDS: PREGABALIN 150 MG CAP PO SCH (21:29)
[2016-08-04] VITALS (12 sets, daily range): BP systolic 82–133; BP diastolic 41–82; PULSE 64–110; TEMP 36.4–36.8; O2SAT 94–98
[2016-08-04 05:08] LABS: URINE APPEARANCE CLEAR (CLEAR); URINE BILIRUBIN NEG (NEG); URINE COLOR YELLOW; URINE EPITHELIAL CELL AUTO 0-5 /lpf (0-5); URINE NITRITE NEG (NEG); URINE SPECIFIC GRAVITY 1.014 (1.000-1.030); UROBILINOGEN NEG (NEG); ZZUR CULT IF INDIC CLEAN CATCH NO
[2016-08-04 05:09] LABS: MANUAL MICROSCOPIC REQUIRED? NO; REVIEW REQ? NO
[2016-08-04] MEDS ORDERED: PERFLUTREN LIPID MICROSPHERE (DEFINITY) IV ONE (07:10)
[2016-08-04] MEDS: METOPROLOL TARTRATE 50 MG TAB PO SCH ×2 (08:30→19:55)
[2016-08-04] MEDS: PREGABALIN 150 MG CAP PO SCH ×3 (08:30→19:54)
[2016-08-04] MEDS: TAMSULOSIN HCL 0.4 MG CAP PO SCH (08:30)
[2016-08-04] MEDS: LISINOPRIL 10 MG TAB PO SCH (08:31)
[2016-08-04] MEDS: INSULIN ASPART 100 UNITS/ML 3 ML PEN SC SCH ×4 (08:33→20:45)
[2016-08-04 09:35] LABS: HEMATOCRIT 41.4 % (42-52); MEAN CELL VOLUME 96.5 fL (80-100); MEAN CORPUSCULAR HGB CONC 32.1 g/dl (32-36); MEAN PLATELET VOLUME 10.2 fL (7.4-10.4); PLATELET COUNT 205 K/uL (130-400); RED BLOOD COUNT 4.29 M/uL (4.7-6.1); WHITE BLOOD COUNT 6.17 K/uL (4.8-10.8)
[2016-08-04 10:06] LABS: BUN/CREATININE RATIO 15.6 (10-20); CALCIUM 8.6 mg/dl (8.5-10.1); CREATININE 1.7 mg/dl (0.60-1.40); POTASSIUM 4.4 mmol/L (3.5-5.1)
[2016-08-04 10:13] LABS: ESTIMATED AVERAGE GLUCOSE 131 mg/dl; HA1C FLAG Normal (Normal)
--- NOTE | 2016-08-04 10:32 | CARDIOLOGY CONSULTATION ---
DATE OF CONSULTATION: 08/04/2016 CONSULTATION REQUESTED BY: Dr. James Bradford. REASON FOR CONSULTATION: Atrial flutter with rapid ventricular response. OUTPATIENT TOOLING SUPERVISOR: Dr. Elpidio Naranjo. PRIMARY CARE PHYSICIAN: Dr. Schaeffer HISTORY OF PRESENT ILLNESS: Mr. Babb is a very pleasant 66-year-old male with a history of severe mitral regurgitation secondary to flail posterior leaflet, status post mitral valve repair with annuloplasty ring in 2007, paroxysmal atrial fibrillation, on Coumadin, hypertension, hyperlipidemia, chronic kidney disease with baseline creatinine around 2.1, diabetes, on insulin, who was admitted yesterday in the setting of atrial flutter with rapid ventricular response. The patient was initially diagnosed with atrial fibrillation back in 2007 in the perioperative setting post his mitral valve repair. Has been on Coumadin since. The patient had one other episode of significant atrial fibrillation with RVR back in 2012 following orthopedic surgery. At that time, the patient was admitted to the hospital and was controlled with rate control agents. He has never had a cardioversion, has never been on any antiarrhythmics. The patient states that he previously was able to feel these episodes of atrial fibrillation. He has not had any recent episodes of palpitations until recently. The patient had been in his usual state of health which includes significant limiting dyspnea on exertion, stating he can walk approximately a couple blocks on level ground before he becomes short of breath. This changed over the last week and a half or so where he states that his shortness of breath significantly progressed. He did not feel any significant palpitations. Reported some rare chest twinges but no significant chest pain. Denied any presyncope or other heart failure symptoms. 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 He was recommended to present to the Emergency Department. Upon presenting to the ED, the patient was hemodynamically stable. He received IV metoprolol x3 with improved rate control with heart rates down to the 110s-120s, he remained in atrial flutter. He was admitted to telemetry. In telemetry, he has remained in atrial flutter overnight with heart rates down to the 70s with 1:4 AV conduction and back up to the 120s this a.m. Use of AV marcelino agents has been limited in part due to blood pressures to the 80s-90s this a.m. The patient at present feels relatively comfortable, still with shortness of breath if he gets about the bed. PAST MEDICAL HISTORY: 1. Severe mitral regurgitation, status post mitral valve repair with annuloplasty ring for flail posterior leaflet. 2. Mild nonobstructive coronary artery disease. Preoperative cardiac cath in 2007 showed distal left main 20%, LAD luminal irregularities with first diagonal with 50% ostial stenosis, ramus 30% proximal stenosis, circumflex 30% mid disease, dominant right with no significant disease. 3. Chronic kidney disease, followed by Dr. Romero. Baseline creatinine now around 2.1. 4. Atrial fibrillation, on Coumadin. Last INR prior to admission was 2.1 back in April. 5. BPH. 6. Diabetes, on insulin. 7. Dyslipidemia. 8. Vitamin B12 deficiency. 9. Prior colonic polyps. 10. Vitamin D deficiency. FAMILY HISTORY: Father had coronary artery disease in his 70s as well as diabetes. Multiple family members with diabetes. No other premature coronary disease or sudden cardiac . SOCIAL HISTORY: He is , lives with his . He is currently not working outside of the home. He is a lifelong never smoker. Denies heavy alcohol or illicit drug use. MEDICATIONS: B12 injections every 4 weeks, fenofibrate, Lantus, Lyrica, metoprolol 25 b.i.d., omega-3, NovoLog insulin, simvastatin 20, tamsulosin, tramadol and warfarin. ALLERGIES: No known drug allergies. REVIEW OF SYSTEMS: A 10-point review of systems completed and otherwise negative unless stated in HPI. PHYSICAL EXAMINATION: VITAL SIGNS: Temperature 36.4, blood pressure 93/66. He is satting 97% on 2 liters. GENERAL: The patient appears comfortable, in no acute distress. HEENT: Sclerae are anicteric. Oropharynx is clear. Mucous membranes are moist. NECK: Supple, no lymphadenopathy. He has no jugular venous distention. LUNGS: Clear to auscultation bilaterally. CARDIAC: He is irregularly irregular with no appreciable murmurs, rubs or gallops. ABDOMEN: Obese but soft, nontender, nondistended, with positive bowel sounds. EXTREMITIES: Warm. He has no significant lower extremity edema. He has intact distal pulses. SKIN: Shows no rashes or lesions. NEUROLOGIC: Nonfocal. PSYCHIATRIC: He is alert and oriented and appropriate. DATA: White blood cell count 6.1, hemoglobin of 13.3, platelets of 205. INR of 2.2. Sodium of 143, potassium 4.5, BUN 24, creatinine of 1.9. LFTs within normal limits. Initial troponin was negative. TSH of 1.0. UA unremarkable. Chest x-ray shows cardiomegaly with mild pulmonary vascular congestion with minimal right basilar airspace opacities. PRIOR CARDIAC STUDIES: Stress echo 04/30/2016, achieved 79% maximum predicted heart rate, only exercised 3 minutes on standard Sabino protocol. Stress EKG was negative. Functional capacity was below average. Normal resting LV function with an EF of 60%. Normal RV size and function. Mitral valve ring in place with mild mitral stenosis, trace MR. Overall, stress echo negative for ischemia. EKG shows atrial flutter with ventricular rate of 142. There are occasional PVCs. No other significant ST abnormalities. IMPRESSION AND PLAN: 1. Atrial flutter with rapid ventricular response. 2. Relative hypotension. 3. Prior mitral valve disease, status post mitral valve repair. 4. Chronic kidney disease. 5. Type 2 diabetes, on insulin. Mr. Babb is here with atrial flutter with RVR and worsened dyspnea on exertion. Thus far, has been managed with rate control agents which has been in part been limited by his relative hypotension. As the patient remains symptomatic with difficulty controlling heart rates, recommend trial of electrical cardioversion. The patient ate breakfast this a.m. and we will plan to hopefully do procedure with anesthesia later this afternoon. Please keep the patient n.p.o. until procedure. In the interim, would continue on increased dose of metoprolol 50 mg b.i.d. If heart rates remain greater than 110s and pressure allows, can retry IV diltiazem. Otherwise, no clear etiology of the patient's return to atrial flutter. Would repeat echocardiogram to further assess mitral valve function. The patient has been anticoagulated with Coumadin long-term and has had therapeutic INRs for the last month. Thank you for allowing us to participate in the care of this patient. Please contact with any questions. MAYRA
--- NOTE | 2016-08-04 11:40 | ECHOCARDIOGRAM REPORT ---
*NOTICE TO RECEIVING DEMOCRAT AGENCY This information is strictly Confidential and protected under [place] law. [place] law prohibits you from making any further disclosure of this information unless further disclosure is expressly permitted by the written consent of the person to whom it pertains or is authorized by law. A general authorization for the release of medical or other information is not sufficient for this purpose. Hospital accepts no responsibility if the information is made available to any other person, INCLUDING THE PATIENT. Interpretation Summary * Name: MARISEL ZAVALA Study Date: 08/04/2016 06:44 AM BP: 93/66 mmHg * Patient Location: C.2T\S\E218\S\1 HR: 98 * : 1950 (M/d/yyyy) Gender: Male Height: 65 in * Age: 66 yrs Ethnicity: [place] Weight: 263 lb * Ordering Physician: Flash Godoy * Referring Physician: Self, Referred * Performed By: May Martins RDCS * * Reason For Study: AFIB * BSA: 2.2 m2 * -- Conclusions -- * Technically limited study despite use of IV Definity contrast. * 1. Normal LV size, mild concentric LVH. * 2. Low normal LV systolic function. LVEF 50-55%. Abnormal septal motion consistent with post-operative state. * 3. RV not well visualized. Appears borderline enlarged. * 4. Mitral valve annuloplasty ring in place. Mild mitral stenosis. Trace MR. * 5. Trace TR. Mild pulmonary hypertension. Est PASP 40-45 mmHg. Est RA 8 mmHg. Procedure Details * A contrast injection of Definity was performed to improve assessment of LV function. * Contrast was injected into an intravenous site in the right arm. * One vial of Definity ultrasound contrast was diluted in normal saline to a total volume of 10 ml. A total of '2' ml of solution was administered during imaging. * Lot # [id number] of Definity utilized for procedure. * Expiration date SEP 01. * The attending nurse who injected the contrast agent was KORI ESTEBAN. Left Ventricle * The left ventricle is grossly normal size. * There is mild concentric left ventricular hypertrophy. * Ejection Fraction = 50-55%. * Septal motion is consistent with post-operative state. Right Ventricle * Borderline right ventricular enlargement. * The right ventricle is not well visualized. Atria * Borderline left atrial enlargement. * The right atrium is mildly dilated. * There is no evidence of atrial septal defect, but resolution does not allow assessment for a patent foramen ovale. Mitral Valve * There is mild mitral stenosis. * Mean gradient 4.5 mmHg * There is trace mitral regurgitation. * An annuloplasty ring is noted in the mitral position. Tricuspid Valve * The tricuspid valve is not well visualized, but is grossly normal. * There is no tricuspid stenosis. * There is trace tricuspid regurgitation. * Right ventricular systolic pressure is elevated at 30-40mmHg. Aortic Valve * The aortic valve opens well. * The aortic valve is trileaflet. * No hemodynamically significant valvular aortic stenosis. * There is no significant aortic regurgitation. Pulmonic Valve * The pulmonary valve is inadequately visualized, but the Doppler data is adequate for interpretation. * Pulmonic stenosis is absent. * There is no significant pulmonary regurgitation. Great Vessels * The aortic root and proximal ascending aorta are normal sized. * No Doppler or imaging evidence of an aortic coarctation. Pericardium/Pleural * There is no pericardial effusion. Great Vessels * IVC <2.1, <50% change with respiration. Est RA 8 mmHg. MMode 2D Measurements and Calculations IVSd 1.3 cm IVSs 1.7 cm LVIDd 4.0 cm LVIDs 2.9 cm LVPWd 1.2 cm LVPWs 1.6 cm IVS/LVPW 1.1 FS 27.5 % EDV(Teich) 70.7 ml ESV(Teich) 32.6 ml EF(Teich) 53.9 % EDV(cubed) 64.9 ml ESV(cubed) 24.7 ml EF(cubed) 61.9 % % IVS thick 25.0 % % LVPW thick 31.5 % LV mass(C)d 185.7 grams LV mass(C)dI 83.5 grams/m\S\2 LV mass(C)s 180.1 grams LV mass(C)sI 81.1 grams/m\S\2 SV(Teich) 38.1 ml SI(Teich) 17.2 ml/m\S\2 SV(cubed) 40.1 ml SI(cubed) 18.1 ml/m\S\2 Ao root diam 3.4 cm Ao root area 9.2 cm\S\2 LA dimension 4.1 cm LA/Ao 1.2 LVAd ap2 24.6 cm\S\2 LVLd ap2 7.7 cm EDV(MOD-sp2) 63.5 ml EDV(sp2-el) 66.7 ml LVAs ap2 15.4 cm\S\2 LVLs ap2 6.3 cm ESV(MOD-sp2) 30.0 ml ESV(sp2-el) 32.0 ml EF(MOD-sp2) 52.8 % EF(sp2-el) 52.1 % SV(MOD-sp2) 33.5 ml SI(MOD-sp2) 15.1 ml/m\S\2 SV(sp2-el) 34.7 ml SI(sp2-el) 15.6 ml/m\S\2 Doppler Measurements and Calculations MV E max lupis 158.1 cm/sec MV A max lupis 97.0 cm/sec MV E/A 1.6 MV P1/2t max lupis 171.3 cm/sec MV P1/2t 88.3 msec MVA(P1/2t) 2.5 cm\S\2 MV dec slope 568.4 cm/sec\S\2 MV dec time 0.22 sec Ao V2 max 112.9 cm/sec Ao max PG 5.1 mmHg Ao max PG (full) 2.8 mmHg LV V1 max PG 2.3 mmHg LV V1 max 76.5 cm/sec TR max lupis 304.0 cm/sec
--- NOTE | 2016-08-04 14:50 | Pharmacy Progress Note ---
Glycemic Control Intl Consult Date of Service Aug 04, 2016. Scope Glycemic Pharmacist consulted by Dr Godoy on 08/03 for glycemic control and to write orders per [facility] inpatient glycemic control protocol Objective Weight (Kilograms): 104.800 Accuchecks BSG (last 24hrs): Test 08/03/16 16:12 08/03/16 20:20 08/04/16 06:54 08/04/16 09:12 Random Glucose 59 mg/dl (70-99) 197 mg/dl (70-99) Bedside Glucose 78 mg/dl (70-99) 106 mg/dl (70-99) Test 08/04/16 12:38 Bedside Glucose 151 mg/dl (70-99) Laboratory Data (last 24hrs) Test 08/03/16 16:12 08/04/16 09:12 Anion Gap 8.0 mmol/L 5.0 mmol/L BUN/Creatinine Ratio 12.8 15.6 Blood Urea Nitrogen 24 mg/dl 27 mg/dl Creatinine 1.90 mg/dl 1.70 mg/dl Potassium Level 4.5 mmol/L 4.4 mmol/L Sodium Level 143 mmol/L 142 mmol/L White Blood Count 10.42 K/uL 6.17 K/uL Red Blood Count 4.52 M/uL Hemoglobin 14.0 g/dL Hematocrit 43.0 % Mean Corpuscular Volume 95.1 fL Mean Corpuscular Hemoglobin 31.0 pg Mean Corpuscular Hemoglobin Concent 32.6 g/dl Platelet Count 296 K/uL Mean Platelet Volume 10.5 fL Neutrophils (%) (Auto) 59.5 % Lymphocytes (%) (Auto) 27.1 % Monocytes (%) (Auto) 11.4 % Eosinophils (%) (Auto) 1.5 % Basophils (%) (Auto) 0.3 % Neutrophils # (Auto) 6.20 K/uL Lymphocytes # (Auto) 2.82 K/uL Monocytes # (Auto) 1.19 K/uL Eosinophils # (Auto) 0.16 K/uL Basophils # (Auto) 0.03 K/uL Hemoglobin A1c 6.2 % HbA1c Test 08/04/16 09:12 Hemoglobin A1c 6.2 % (4.5-5.6) H Recent Pertinent Medications Outpatient Anti-diabetic Regimen: * Lantus 60 units qHS * Novolog 30 units TID with meals The patient is currently receiving: * Basal insulin: Lantus currently on hold - rec'd 10 units last night * Correctional Insulin: Novolog Correction per scale ACHS Goal Range: Low 120 mg/dL - High 160 mg/dL Correction Factor: 20 mg/dL/unit * Prandial insulin: Per carb ratio of 1 unit per 7 grams CHO consumed Risk Factors for Insulin Resistance: * IVF: Cardizem drip mixed in dextrose * Recent Surgery: for cardioversion this afternoon * Diet: was on a type 2 diabetes diet, currently NPO for cardioversion Assessment & Plan ASSESSMENT: 08/04/16 * 66 y/o male with well controlled type 2 diabetes as an outpatient * Admitted with low BSGs yesterday after taking his usual outpatient doses and most likely not enough po intake? * He received only 10 units of Lantus last night with good fasting BSG this AM * I received a call from the nurse this AM that the patient had eaten breakfast but was then going to be NPO for a cardioversion later today * I advised the nurse to cover the patient's carbs but hold off on the Lantus b/ c I did not want to give a long-acting insulin with a fasting of 106 and patient going NPO * BSG around lunch has increased but remains less than 160 * Will plan to resume the Lantus tonight but no changes now since he is still NPO - will base dosing off of patient's total daily outpatient dose and stress of 1 or 1.5 * ADA & AACE recommend a goal blood sugar range 140-180 mg/dl for the majority of critically ill & non-critically ill patients. However, more stringent targets may be selected in individual cases. Will utilize more stringent goal of 110-140 mg/dl based on patient age & comorbidities. PLAN FOR INPATIENT GLYCEMIC CONTROL: * Resume BID Lantus this evening * 15 units for BSG less than 110 * 25 units for BSG 110-140 * 35 units for BSG above 140 * Continue correction factor of 20 mg/dl/unit * Continue carb ratio of 1 unit per 7 grams CHO consumed * Change goal range to Low 110 mg/dL - High 140 mg/dL * Please note that the plan above was derived based on current level of insulin resistance and hospital stress. These recommendations are appropriate for inpatient admission only. Plan of care upon discharge will need to be reassessed to avoid potential outpatient hypo/hyperglycemia. Thank you.
[2016-08-04] MEDS ORDERED: PROPOFOL IV EMULSION 10 MG/ML 20 ML VIAL IV ONE (15:40)
--- NOTE | 2016-08-04 15:48 | [facility] Operative Report ---
Operative Report Operative Date Aug 04, 2016. Pre-Operative Diagnosis Atrial flutter Post-Operative Diagnosis Atrial flutter Procedure(s) Performed DC Cardioversion Surgeon Jose A Findings Atrial flutter with RVR Drains None Anesthesia General with anesthesia Complication(s) None Disposition PCU Description of Procedure External DC cardioversion Propofol administered by anesthesia service. External pads placed in AP position. Synchronized cardioversion with 1 shock at 100J Successful cardioversion to sinus rhythm. I attest to the content of the Intraoperative Record and any orders documented therein. Any exceptions are noted below.
--- NOTE | 2016-08-04 15:48 | Anesthesiology Progress Note ---
Anesthesia Post Op Note Date & Time Aug 04, 2016 at 15:47 Vital Signs Pain Intensity: 0 Vital Signs Past 12 Hours Date Time Temp Pulse Resp B/P (MAP) Pulse Ox O2 Delivery O2 Flow Rate FiO2 08/04/16 15:37 65 16 85/47 (60) 98 Room Air 08/04/16 15:37 64 16 85/56 96 Mask 10 08/04/16 15:35 71 16 92/56 96 Mask 10 08/04/16 15:31 71 16 133/41 96 Mask 10 08/04/16 15:29 110 16 128/71 96 Mask 10 08/04/16 12:00 Nasal Cannula 2.0 08/04/16 11:18 36.6 109 18 108/71 (83) 98 Nasal Cannula 2.0 08/04/16 08:00 Nasal Cannula 2.0 08/04/16 07:41 93/66 (75) 08/04/16 07:28 82/50 (61) 08/04/16 07:17 36.4 105 20 97 Nasal Cannula 2.0 08/04/16 04:00 Nasal Cannula 2.0 08/04/16 04:00 36.7 98 18 93/53 (66) 98 Nasal Cannula 2.0 Notes Mental Status: alert / awake / arousable, participated in evaluation Pt Amnestic to Procedure: Yes Nausea / Vomiting: adequately controlled Pain: adequately controlled Airway Patency, RR, SpO2: stable & adequate BP & HR: stable & adequate Hydration State: stable & adequate Anesthetic Complications: no major complications apparent
[2016-08-04] MEDS ORDERED: WARFARIN SOD 3 MG TAB PO SCH (16:00)
[2016-08-04] MEDS ORDERED: WARFARIN PO SCH (16:00)
--- NOTE | 2016-08-04 19:04 | Hospitalist Progress Note ---
Hospitalist Progress Note Date of Service Aug 04, 2016. Subjective Pt evaluation today including: conversation w/ patient, physical exam Had DCCV today and in NSR, feels good. Has been OOB to BR twice and no significant dyspnea. Cardiovascular: No chest pain Abdomen: No pain All Other Systems: Reviewed and Negative Objective Vital Signs Date Time Temp Pulse Resp B/P (MAP) Pulse Ox O2 Delivery O2 Flow Rate FiO2 08/04/16 16:27 36.4 70 20 116/82 (93) 94 Room Air 08/04/16 16:15 Nasal Cannula 2.0 08/04/16 15:57 65 16 98/59 (72) 98 Room Air 08/04/16 15:47 67 16 85/57 (66) 98 Room Air 08/04/16 15:37 65 16 85/47 (60) 98 Room Air 08/04/16 15:37 64 16 85/56 96 Mask 10 08/04/16 15:35 71 16 92/56 96 Mask 10 08/04/16 15:31 71 16 133/41 96 Mask 10 08/04/16 15:29 110 16 128/71 96 Mask 10 08/04/16 12:00 Nasal Cannula 2.0 08/04/16 11:18 36.6 109 18 108/71 (83) 98 Nasal Cannula 2.0 08/04/16 08:00 Nasal Cannula 2.0 08/04/16 07:41 93/66 (75) 08/04/16 07:28 82/50 (61) 08/04/16 07:17 36.4 105 20 97 Nasal Cannula 2.0 08/04/16 04:00 Nasal Cannula 2.0 08/04/16 04:00 36.7 98 18 93/53 (66) 98 Nasal Cannula 2.0 08/04/16 00:00 36.8 74 18 100/67 (78) 97 Nasal Cannula 2.0 08/03/16 23:59 Nasal Cannula 2.0 08/03/16 20:00 Nasal Cannula 2.0 08/03/16 19:08 125 15 105/68 97 08/03/16 18:59 125 95/76 99 Physical Exam General Appearance: WD/WN, no apparent distress, + obese Eyes: normal inspection, sclerae normal ENT: hearing grossly normal Neck: trachea midline Respiratory/Chest: lungs clear, normal breath sounds, no respiratory distress, no accessory muscle use Cardiovascular: regular rate, rhythm, no edema, no gallop, no murmur Abdomen: normal bowel sounds, non tender, soft (and obese) Extremities: non-tender, normal inspection, no pedal edema, no calf tenderness Neurologic/Psychiatric: alert, normal mood/affect, oriented x 3 Skin: normal color, warm/dry, no rash Laboratory Results Last 24 Hours Test 08/03/16 20:20 08/04/16 01:17 08/04/16 01:20 08/04/16 06:54 Bedside Glucose 78 mg/dl 106 mg/dl Total Creatine Kinase 65 U/L Troponin I < 0.015 ng/ml Urine Color YELLOW Urine Appearance CLEAR Urine pH 6.0 Urine Specific [place] 1.014 Urine Protein NEG Urine Glucose (UA) NEG Urine Ketones NEG Urine Occult Blood 3+ Urine Nitrite NEG Urine Bilirubin NEG Urine Urobilinogen NEG Urine Leukocyte Esterase NEG Urine WBC (Auto) 1-5 /hpf Urine RBC (Auto) >30 /hpf Urine Hyaline Casts (Auto) 0 /lpf Urine Epithelial Cells (Auto) 0-5 /lpf Urine Bacteria (Auto) NEG Test 08/04/16 09:12 08/04/16 12:38 08/04/16 16:23 White Blood Count 6.17 K/uL Red Blood Count 4.29 M/uL Hemoglobin 13.3 g/dL Hematocrit 41.4 % Mean Corpuscular Volume 96.5 fL Mean Corpuscular Hemoglobin 31.0 pg Mean Corpuscular Hemoglobin Concent 32.1 g/dl RDW Standard Deviation 52.7 fL RDW Coefficient of Variation 15.0 % Platelet Count 205 K/uL Mean Platelet Volume 10.2 fL Sodium Level 142 mmol/L Potassium Level 4.4 mmol/L Chloride Level 109 mmol/L Carbon Dioxide Level 28 mmol/L Anion Gap 5.0 mmol/L Blood Urea Nitrogen 27 mg/dl Creatinine 1.70 mg/dl Est Creatinine Clear Calc Drug Dose 48.5 ml/min Estimated GFR () 47.6 Estimated GFR (Non- 41.1 BUN/Creatinine Ratio 15.6 Random Glucose 197 mg/dl Estimated Average Glucose 131 mg/dl Hemoglobin A1c 6.2 % Calcium Level 8.6 mg/dl Total Bilirubin 0.7 mg/dl Direct Bilirubin 0.3 mg/dl Aspartate Amino Transf (AST/SGOT) 15 U/L Alanine Aminotransferase (ALT/SGPT) 18 U/L Alkaline Phosphatase 51 U/L Total Creatine Kinase 59 U/L Troponin I < 0.015 ng/ml Total Protein 6.6 gm/dl Albumin 3.3 gm/dl Globulin 3.3 gm/dl Albumin/Globulin Ratio 1.0 Amylase Level 72 U/L Lipase 530 U/L Bedside Glucose 151 mg/dl 110 mg/dl Assessment and Plan 66M with a PMHx of known PAfib/flutter (on Coumadin), MVR, CKD Stage III, peripheral neuropathy, nephrolithiasis, BPH, and DM2 presents w A-flutter with RVR. He received 15mg IV Lopressor in the ER and was initially started on a Cardizem gtt A Flutter with RVR/Chronic systolic and diastolic CHF, h/o MVR/ HTN-Pt has likely been in Afib for a few weeks with symptoms when he walks up stairs. At rest he is asymptomatic. ECHO with low normal EF 50-55%, MV ring and mild MS, mild PHTN - Cardiology Consulted--> DCCV performed successfully and remains in NSR at this time - continue Metoprolol 50mg BID - c/w Coumadin for AC -can likely dc to home tomorrow -follow INR in AM -continue home lisinopril, metoprolol at increased dose, statin,Tricor, DM2-HgbA1C well controlled at 6.2% here -SSI, accuchecks, Lantus CKD stage III- - etl informatica architect 1.9 on admission, now improved to 1.7, chronic baseline around 2.0, sees nephrology. renally dose meds -avoid nephrotoxins Hematuria (chronic) - According to pt this is a chronic condition and he's seeing urology for 1.5cm left renal stone removal. Asymptomatic. Denies dysuria. No CVA tenderness. - CT from 05/13/16 "16mm non obstructing stone in the left renal pelvis" - UA 3+ occult blood here-stable LE Neuropathy-stable - c/w Pregabalin 150mg TID. - c/w Ultram 50mg TID HLD - c/w Simvastatin 20mg daily BPH - c/w Tamsulosin 0.4mg Proph-coumadin Dispo Tele, DM2 diet Full Code -to home tomorrow
[2016-08-04] MEDS: SIMVASTATIN 20 MG TAB PO SCH (19:54)
[2016-08-04] MEDS: INSULIN GLARGINE SOLOSTAR 100 UNITS/ML 3 ML PEN SC SCH (20:45)
[2016-08-05] VITALS (10 sets, daily range): BP systolic 95–131; BP diastolic 57–78; PULSE 70–118; TEMP 36.3–37.1; O2SAT 91–95
[2016-08-05] MEDS ORDERED: NURSING VERBAL MED ORDER ONE ×2 (05:45→06:45)
[2016-08-05] MEDS ORDERED: METOPROLOL TARTRATE 1 MG/ML VIAL ONE (05:59)
[2016-08-05] MEDS ORDERED: METOPROLOL TARTRATE 1 MG/ML VIAL IV ONE ×2 (06:00→06:45)
[2016-08-05 07:14] LABS: HEMATOCRIT 37.2 % (42-52); MEAN CELL VOLUME 95.1 fL (80-100); MEAN CORPUSCULAR HGB CONC 33.6 g/dl (32-36); MEAN PLATELET VOLUME 10.6 fL (7.4-10.4); PLATELET COUNT 196 K/uL (130-400); RED BLOOD COUNT 3.91 M/uL (4.7-6.1); WHITE BLOOD COUNT 6.92 K/uL (4.8-10.8)
[2016-08-05 07:41] LABS: PROTHROMBIN TIME (PATIENT) 22.4 SECONDS (9.0-12.0)
[2016-08-05 07:55] LABS: BUN/CREATININE RATIO 17.3 (10-20); CALCIUM 8.8 mg/dl (8.5-10.1); CREATININE 1.7 mg/dl (0.60-1.40); MAGNESIUM 1.8 mg/dl (1.8-2.4); POTASSIUM 4.2 mmol/L (3.5-5.1)
[2016-08-05] MEDS: LISINOPRIL 10 MG TAB PO SCH (08:37)
[2016-08-05] MEDS: METOPROLOL TARTRATE 50 MG TAB PO SCH ×2 (08:37→21:25)
[2016-08-05] MEDS: TAMSULOSIN HCL 0.4 MG CAP PO SCH (08:38)
[2016-08-05] MEDS: INSULIN ASPART 100 UNITS/ML 3 ML PEN SC SCH ×4 (08:40→21:28)
[2016-08-05] MEDS: PREGABALIN 150 MG CAP PO SCH ×3 (08:41→21:26)
[2016-08-05] MEDS: INSULIN GLARGINE SOLOSTAR 100 UNITS/ML 3 ML PEN SC SCH ×2 (08:42→21:27)
--- NOTE | 2016-08-05 11:30 | Pharmacy Progress Note ---
Glycemic Control: Progress Nt Date of Service Aug 05, 2016. Scope Glycemic Pharmacist consulted by Dr Godoy on 08/03/16 for glycemic control and to write orders per [facility] inpatient glycemic control protocol. Objective Accuchecks BSG (last 24hrs): Test 08/04/16 12:38 08/04/16 16:23 08/04/16 20:23 08/05/16 06:24 Bedside Glucose 151 mg/dl (70-99) 110 mg/dl (70-99) 120 mg/dl (70-99) 96 mg/dl (70-99) Test 08/05/16 06:30 Random Glucose 85 mg/dl (70-99) Laboratory Data (last 24hrs) Test 08/05/16 06:30 Anion Gap 9.0 mmol/L BUN/Creatinine Ratio 17.3 Blood Urea Nitrogen 29 mg/dl Creatinine 1.70 mg/dl Potassium Level 4.2 mmol/L Sodium Level 142 mmol/L White Blood Count 6.92 K/uL HbA1c: Test 08/04/16 09:12 Hemoglobin A1c 6.2 % (4.5-5.6) H Recent Pertinent Medications Outpatient Anti-diabetic Regimen: * Lantus 60 units qHS * Novolog 30 units TID with meals The patient is currently receiving: * Basal insulin: Lantus per scale 15-35 units sq HS based on BSG * Correctional Insulin: Novolog Correction per scale ACHS Goal Range: Low 110 mg/dL - High 140 mg/dL Correction Factor: 20 mg/dL/unit * Prandial insulin: Per carb ratio of 1 unit per 7 grams CHO consumed Risk Factors for Insulin Resistance: * IVF: Cardizem drip mixed in dextrose - currently on hold * Diet: resumed oral diet -> type 2 diabetes/AHA Assessment & Plan ASSESSMENT: 08/04/16 * 66 y/o male with well controlled type 2 diabetes as an outpatient * Admitted with low BSGs yesterday after taking his usual outpatient doses and most likely not enough po intake? * He received only 10 units of Lantus last night with good fasting BSG this AM * I received a call from the nurse this AM that the patient had eaten breakfast but was then going to be NPO for a cardioversion later today * I advised the nurse to cover the patient's carbs but hold off on the Lantus b/ c I did not want to give a long-acting insulin with a fasting of 106 and patient going NPO * BSG around lunch has increased but remains less than 160 * Will plan to resume the Lantus tonight but no changes now since he is still NPO - will base dosing off of patient's total daily outpatient dose and stress of 1 or 1.5 * ADA & AACE recommend a goal blood sugar range 140-180 mg/dl for the majority of critically ill & non-critically ill patients. However, more stringent targets may be selected in individual cases. Will utilize more stringent goal of 110-140 mg/dl based on patient age & comorbidities. 08/05/16 * BSGs have ranged from 96 to 197 mg/dL over the past 24 hours. Patient received a total of 37 units on 08/04 (25 units of basal). * Fasting BSG at goal - patient has required a significant reduction in basal insulin while admitted * Continue to dose basal insulin per scale since inpatient needs have not been established * Patient required minimal meal time insulin yesterday - likely to increase today since he is resuming an oral diet PLAN FOR INPATIENT GLYCEMIC CONTROL: * Lantus BID * 10 units for BSG less than 110 * 20 units for BSG 110-140 * 30 units for BSG above 140 * Continue correction factor of 20 mg/dl/unit * Continue carb ratio of 1 unit per 7 grams CHO consumed * Continue goal range to Low 110 mg/dL - High 140 mg/dL RECOMMENDATIONS FOR DISCHARGE: * Adequate outpatient control evidenced by A1c of 6.2% on 08/04/16 * Patient can resume outpatient insulin regimen on discharge * Please note that the plan above was derived based on current level of insulin resistance and hospital stress. These recommendations are appropriate for inpatient admission only. Plan of care upon discharge will need to be reassessed to avoid potential outpatient hypo/hyperglycemia. Thank you.
[2016-08-05] MEDS ORDERED: MAGNESIUM SULFATE 1GM / D5W 1 GM in PREMIXED IN D5W 100 ML IV ONE (13:45)
--- NOTE | 2016-08-05 15:48 | Hospitalist Progress Note ---
Hospitalist Progress Note Date of Service Aug 05, 2016. Subjective Pt evaluation today including: conversation w/ patient, lab review, conversation w/ solutions sales consultant ([employer] Librarian) Pt went back into rapid a-fib this AM after successful DCCV yesterday. Rates were as high as 140s, now 100s with up to 130s with ambulation. He has some intermittent SOB, no CP, No other problems All Other Systems: Reviewed and Negative Objective Vital Signs Date Time Temp Pulse Resp B/P (MAP) Pulse Ox O2 Delivery O2 Flow Rate FiO2 08/05/16 12:00 Room Air 08/05/16 11:26 36.4 92 19 101/69 (80) 94 Room Air 08/05/16 08:00 Room Air 08/05/16 07:19 36.5 118 19 102/66 (78) 94 Room Air 08/05/16 06:39 112 08/05/16 06:35 109 113/74 (87) 08/05/16 06:11 107 122/83 08/05/16 05:40 131/78 (95) 08/05/16 04:00 Room Air 08/05/16 03:52 36.4 70 18 102/66 (78) 95 Room Air 08/05/16 00:00 36.3 72 19 95/57 (70) 95 Room Air 08/05/16 00:00 Room Air 08/04/16 20:00 Room Air 08/04/16 19:30 36.7 77 18 110/69 (83) 95 Room Air 08/04/16 16:27 36.4 70 20 116/82 (93) 94 Room Air 08/04/16 16:15 Nasal Cannula 2.0 08/04/16 15:57 65 16 98/59 (72) 98 Room Air 08/04/16 15:47 67 16 85/57 (66) 98 Room Air Physical Exam General Appearance: WD/WN, no apparent distress, + obese Eyes: normal inspection, sclerae normal ENT: hearing grossly normal Neck: trachea midline Respiratory/Chest: no respiratory distress, no accessory muscle use, + wheezing (some occasinal exp wheeze) Cardiovascular: no murmur, + irregularly irregular (with tachycardia) Abdomen: normal bowel sounds, non tender, soft Extremities: non-tender, normal inspection (except trace pitting edema) Neurologic/Psychiatric: alert, normal mood/affect, oriented x 3 Skin: normal color, warm/dry, no rash Laboratory Results Last 24 Hours Test 08/04/16 16:23 08/04/16 20:23 08/05/16 06:24 08/05/16 06:30 Bedside Glucose 110 mg/dl 120 mg/dl 96 mg/dl White Blood Count 6.92 K/uL Red Blood Count 3.91 M/uL Hemoglobin 12.5 g/dL Hematocrit 37.2 % Mean Corpuscular Volume 95.1 fL Mean Corpuscular Hemoglobin 32.0 pg Mean Corpuscular Hemoglobin Concent 33.6 g/dl RDW Standard Deviation 50.9 fL RDW Coefficient of Variation 14.7 % Platelet Count 196 K/uL Mean Platelet Volume 10.6 fL Prothrombin Time 22.4 SECONDS Prothromb Time International Ratio 2.0 Sodium Level 142 mmol/L Potassium Level 4.2 mmol/L Chloride Level 109 mmol/L Carbon Dioxide Level 24 mmol/L Anion Gap 9.0 mmol/L Blood Urea Nitrogen 29 mg/dl Creatinine 1.70 mg/dl Est Creatinine Clear Calc Drug Dose 48.4 ml/min Estimated GFR () 47.6 Estimated GFR (Non- 41.1 BUN/Creatinine Ratio 17.3 Random Glucose 85 mg/dl Calcium Level 8.8 mg/dl Magnesium Level 1.8 mg/dl Assessment and Plan 66M with a PMHx of known PAfib/flutter (on Coumadin), MVR, CKD Stage III, peripheral neuropathy, nephrolithiasis, BPH, and DM2 presents w A-flutter with RVR. He received 15mg IV Lopressor in the ER and was initially started on a Cardizem gtt A Flutter with RVR/Chronic systolic and diastolic CHF, h/o MVR/ HTN-Pt has likely been in Afib for a few weeks with symptoms when he walks up stairs. At rest he is asymptomatic. 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 renally dose meds -avoid nephrotoxins Hematuria (chronic) - According to pt this is a chronic condition and he's seeing urology for 1.5cm left renal stone removal. Asymptomatic. Denies dysuria. No CVA tenderness. - CT from 05/13/16 "16mm non obstructing stone in the left renal pelvis" - UA 3+ occult blood here-stable LE Neuropathy-stable - c/w Pregabalin 150mg TID. - c/w Ultram 50mg TID HLD - c/w Simvastatin 20mg daily BPH - c/w Tamsulosin 0.4mg Proph-coumadin Dispo Tele, DM2 diet Full Code
[2016-08-05] MEDS ORDERED: DILTIAZEM HCL 30 MG TAB PO ONE (16:00)
[2016-08-05] MEDS: WARFARIN SOD 3 MG TAB PO SCH (16:27)
--- NOTE | 2016-08-05 19:39 | CARDIOLOGY PROGRESS NOTE ---
DATE: 08/05/2016 SUBJECTIVE: This afternoon, Mr. Babb claims to be feeling well. He states he still has an element of breathing difficulty, but overall feels better. He has been minimally ambulatory around the room, but does have an element of dyspnea when out of bed. He denies significant dizziness and no chest pain currently. PHYSICAL EXAMINATION: GENERAL: He was alert and oriented. His mood and affect appeared normal. He answered all questions appropriately. CURRENT VITAL SIGNS: Include a blood pressure of 107/72 with a pulse of 116. LUNGS: Auscultation of his lungs reveal distant breath sounds overall, but no rales or wheezes. CARDIAC EXAMINATION: Reveals him to be in an irregularly irregular rhythm. LABORATORY STUDIES: Today, included a white cell count of 6.9, hemoglobin of 12.5 and a platelet count of 196. Sodium is 142, potassium is 4.2, BUN was 29, creatinine was 1.7. ASSESSMENT AND PLAN: 1. Atrial fibrillation. The patient did have atrial flutter yesterday and was cardioverted successfully. His current rhythm appears to be atrial fibrillation with a rapid ventricular response. Whether the patient has significant symptoms associated with the arrhythmia or rapid heart rates is unclear. He does state that he feels somewhat better. He has some baseline primary lung disease which compromises his breathing most of the time. At this point, I think it would be reasonable to attempt a more aggressive rate control strategy to see if that improves his symptom. Since he has a normal left ventricular systolic function and blood pressure appears adequate, we will attempt to add a diltiazem to his beta gilberto. I think we can monitor his results over the next 24 hours and increase his activity during that period of time to see if he has the desired effect. The patient will be maintained on systemic anticoagulation with warfarin. No indication for cardioversion at this time.
[2016-08-05] MEDS: SIMVASTATIN 20 MG TAB PO SCH (21:25)
[2016-08-05] MEDS: DILTIAZEM HCL 30 MG TAB PO SCH (21:26)
[2016-08-06 04:10] VITALS: BP 117/74; PULSE 98; TEMP 36.8; O2SAT 96
[2016-08-06 07:12] LABS: BASO % 0.3 %; BASO ABS # 0.02 K/uL (0-0.2); COMPLETE YES; EOS % 3.9 %; HEMATOCRIT 39.1 % (42-52); IG% 0.3 %; LYMPH ABS # 1.52 K/uL (1.2-3.4); MEAN CELL VOLUME 93.8 fL (80-100); MEAN CORPUSCULAR HEMOGLOBIN 30.7 pg (25-34); MEAN CORPUSCULAR HGB CONC 32.7 g/dl (32-36); MEAN PLATELET VOLUME 10.5 fL (7.4-10.4); MONO % 11.7 %; NEUT % 63.8 %; PLATELET COUNT 226 K/uL (130-400); RED BLOOD COUNT 4.17 M/uL (4.7-6.1); WHITE BLOOD COUNT 7.61 K/uL (4.8-10.8)
[2016-08-06 07:33] VITALS: BP 109/71; PULSE 80; TEMP 36.7; O2SAT 94
[2016-08-06 07:36] LABS: INR 1.9 (0.9-1.1); PROTHROMBIN TIME (PATIENT) 20.9 SECONDS (9.0-12.0)
[2016-08-06 07:42] LABS: CALCIUM 8.8 mg/dl (8.5-10.1); CREATININE 1.7 mg/dl (0.60-1.40); POTASSIUM 4.1 mmol/L (3.5-5.1)
[2016-08-06] MEDS: METOPROLOL TARTRATE 50 MG TAB PO SCH (08:10)
[2016-08-06] MEDS: DILTIAZEM HCL 30 MG TAB PO SCH ×2 (08:11→14:30)
[2016-08-06] MEDS: LISINOPRIL 10 MG TAB PO SCH (08:11)
[2016-08-06] MEDS: TAMSULOSIN HCL 0.4 MG CAP PO SCH (08:12)
[2016-08-06] MEDS: INSULIN GLARGINE SOLOSTAR 100 UNITS/ML 3 ML PEN SC SCH (08:17)
[2016-08-06] MEDS: PREGABALIN 150 MG CAP PO SCH ×2 (08:19→14:30)
[2016-08-06] MEDS: INSULIN ASPART 100 UNITS/ML 3 ML PEN SC SCH ×3 (08:20→16:15)
[2016-08-06 11:21] VITALS: BP 120/68; PULSE 83; TEMP 36.7; O2SAT 93
--- NOTE | 2016-08-06 14:44 | Pharmacy Progress Note ---
Glycemic Control: Progress Nt Date of Service Aug 06, 2016. Scope Glycemic Pharmacist consulted by Dr Godoy on 08/03/16 for glycemic control and to write orders per [facility] inpatient glycemic control protocol. Objective Accuchecks BSG (last 24hrs): Test 08/05/16 16:28 08/05/16 20:01 08/06/16 06:24 08/06/16 06:48 Bedside Glucose 170 mg/dl (70-99) 197 mg/dl (70-99) 120 mg/dl (70-99) Random Glucose 113 mg/dl (70-99) Test 08/06/16 10:46 Bedside Glucose 192 mg/dl (70-99) Laboratory Data (last 24hrs) Test 08/06/16 06:24 Anion Gap 8.0 mmol/L BUN/Creatinine Ratio 18.0 Blood Urea Nitrogen 31 mg/dl Creatinine 1.70 mg/dl Potassium Level 4.1 mmol/L Sodium Level 141 mmol/L White Blood Count 7.61 K/uL Red Blood Count 4.17 M/uL Hemoglobin 12.8 g/dL Hematocrit 39.1 % Mean Corpuscular Volume 93.8 fL Mean Corpuscular Hemoglobin 30.7 pg Mean Corpuscular Hemoglobin Concent 32.7 g/dl Platelet Count 226 K/uL Mean Platelet Volume 10.5 fL Neutrophils (%) (Auto) 63.8 % Lymphocytes (%) (Auto) 20.0 % Monocytes (%) (Auto) 11.7 % Eosinophils (%) (Auto) 3.9 % Basophils (%) (Auto) 0.3 % Neutrophils # (Auto) 4.86 K/uL Lymphocytes # (Auto) 1.52 K/uL Monocytes # (Auto) 0.89 K/uL Eosinophils # (Auto) 0.30 K/uL Basophils # (Auto) 0.02 K/uL HbA1c: Test 08/04/16 09:12 Hemoglobin A1c 6.2 % (4.5-5.6) H Recent Pertinent Medications Outpatient Anti-diabetic Regimen: * Lantus 60 units qHS * Novolog 30 units TID with meals The patient is currently receiving: * Basal insulin: Lantus per scale 10-30 units sq HS based on BSG * Correctional Insulin: Novolog Correction per scale ACHS Goal Range: Low 110 mg/dL - High 140 mg/dL Correction Factor: 20 mg/dL/unit * Prandial insulin: Per carb ratio of 1 unit per 7 grams CHO consumed Risk Factors for Insulin Resistance: * Diet: type 2 diabetes/AHA Assessment & Plan ASSESSMENT: Initial * 66 y/o male with well controlled type 2 diabetes as an outpatient * Admitted with low BSGs yesterday after taking his usual outpatient doses and most likely not enough po intake? * ADA & AACE recommend a goal blood sugar range 140-180 mg/dl for the majority of critically ill & non-critically ill patients. However, more stringent targets may be selected in individual cases. Will utilize more stringent goal of 110-140 mg/dl based on patient age & comorbidities. 08/06/16 * BSGs have ranged from 96 to 197 mg/dL over the past 24 hours. * Patient received a total of 69 units on 08/05 -> 40 units of basal and 29 units of bolus. * Fasting BSG is at goal but other BSG readings remain elevated * Redistribute regimen to achieve closer to 50% basal and 50% bolus * Anticipate patient to need about 80 units of insulin per day PLAN FOR INPATIENT GLYCEMIC CONTROL: * Start Lantus BID 20 units BID * Tighten correction factor to 15 mg/dl/unit * Tighten carb ratio to 1 unit per 5 grams CHO consumed * Continue goal range to Low 110 mg/dL - High 140 mg/dL RECOMMENDATIONS FOR DISCHARGE: * Adequate outpatient control evidenced by A1c of 6.2% on 08/04/16 * Patient can resume outpatient insulin regimen on discharge * Please note that the plan above was derived based on current level of insulin resistance and hospital stress. These recommendations are appropriate for inpatient admission only. Plan of care upon discharge will need to be reassessed to avoid potential outpatient hypo/hyperglycemia. Thank you.
[2016-08-06 15:35] VITALS: BP 119/75; PULSE 92; TEMP 36.5; O2SAT 96
--- NOTE | 2016-08-06 15:59 | Cardiology Follow-Up ---
Subjective Subjective Date of Service: Aug 06, 2016. Pt evaluation today including: conversation w/ patient, physical exam, chart review, lab review, review of studies, conversation w/ mobile sales consultant, review of inpatient medication list Additional Details: Feeling well. Breathing at baseline. No chest pain or palpitations. No other new complaints. Tele reviewed -- better controlled this AM in 80-90s Problem List Medical Problems: (1) Atrial flutter Status: Acute (2) Chronic kidney disease Status: Acute (3) Chronic kidney disease Status: Acute (4) Diabetes Status: Acute (5) Diabetes Status: Acute Review of Systems Constitutional: No fever, No chills Respiratory: No cough Cardiac: No chest pain Abdomen: No pain Neurologic: + numbness/tingling Psychiatric: No depression symptoms Heme: No abnormal bleeding/bruising Objective Vital Signs Last Vital Signs Documentation Date Time Temp Pulse Resp B/P (MAP) Pulse Ox O2 Delivery O2 Flow Rate FiO2 08/06/16 12:00 Room Air 08/06/16 11:21 36.7 83 16 120/68 (85) 93 08/04/16 16:15 2.0 Physical Exam: General Appearance: no apparent distress, + obese ENT: hearing grossly normal Neck: trachea midline Respiratory/Chest: no respiratory distress, no accessory muscle use Cardiovascular: no murmur, + irregularly irregular (with tachycardia) Abdomen: normal bowel sounds, non tender, soft Extremities: non-tender, normal inspection (except trace pitting edema) Neurologic/Psychiatric: alert, normal mood/affect, oriented x 3 Skin: normal color, warm/dry, no rash Lymphatic: no adenopathy Assessment and Plan 1. AF with RVR 2. Prior mitral valve disease, status post mitral valve repair. 3. Chronic kidney disease. 4. Type 2 diabetes, on insulin. HR better controlled on metoprolol/diltiazem. Breathing symptoms appear at baseline. -- from cardiac standpoint OK for discharge today. -- continue current metoprolol 50 bid -- continue diltiazem, can convert to cardizem cd 120 daily at discharge -- continue coumadin Follow-up with cardiology 3-4 weeks. Medications: Current Inpatient Medications Medications (Trade) Dose Ordered Sig/Katarzyna Route Start Time Stop Time Status Last Admin Dose Admin Acetaminophen (Tylenol Tab) 650 mg Q4H PRN PO 08/03/16 18:00 09/02/16 17:59 08/04/16 19:54 650 MG Al Hydrox/Mg Hydrox/Simethicone (Maalox Max Susp) 15 ml Q4H PRN PO 08/03/16 18:00 09/02/16 17:59 Magnesium Hydroxide (Milk Of Magnesia Susp) 30 ml Q12H PRN PO 08/03/16 18:00 09/02/16 17:59 Zolpidem Tartrate (Ambien Tab) 5 mg HSZ PRN PO 08/03/16 18:00 09/02/16 17:59 Ondansetron HCl (Zofran Inj) 4 mg Q6H PRN IV 08/03/16 18:00 09/02/16 17:59 Nitroglycerin (Nitrostat Tab) 0.4 mg UD PRN SL 08/03/16 18:00 09/02/16 17:59 Morphine Sulfate (MoRPHine SULFATE INJ) 2 mg Q30M PRN IV 08/03/16 18:00 08/17/16 17:59 Polyethylene (Miralax Powder Packet) 17 gm DAILY PRN PO 08/03/16 18:00 09/02/16 17:59 Miscellaneous Information (Consult Glycemic Management Pharmacy) 1 ea UD N/A 08/03/16 19:22 09/02/16 19:21 Lisinopril (Zestril Tab) 10 mg QAM PO 08/04/16 09:00 09/03/16 08:59 Pregabalin (Lyrica Cap) 150 mg TID PO 08/03/16 21:00 09/02/16 20:59 08/06/16 14:30 150 MG Simvastatin (Zocor Tab) 20 mg QPM PO 08/03/16 21:00 09/02/16 20:59 08/05/16 21:25 20 MG Tamsulosin HCl (Flomax Cap) 0.4 mg DAILY PO 08/04/16 09:00 09/03/16 08:59 08/06/16 08:12 0.4 MG Tramadol HCl (Ultram Tab) 50 mg Q8 PRN PO 08/03/16 18:45 09/02/16 18:44 Warfarin Sodium (Coumadin Tab) 3 mg SuMoWeThSa@1600 PO 08/03/16 21:00 09/02/16 20:59 08/05/16 16:27 3 MG Metoprolol Tartrate (Lopressor Tab) 50 mg BID PO 08/04/16 09:00 09/03/16 08:59 08/06/16 08:10 50 MG Glucose (Glucose 40% Gel) 15-30 GRAMS 15 GRAMS... UD PRN PO 08/03/16 19:45 09/02/16 19:44 Glucose (Glucose Chew Tab) 4-8 Tablets 4 Tabl... UD PRN PO 08/03/16 19:45 09/02/16 19:44 Dextrose (Dextrose 50% 50ML Syringe) 25-50ML OF 50% DW IV FOR... UD PRN IV 08/03/16 19:45 09/02/16 19:44 Glucagon (Glucagon Inj) 1 mg UD PRN SQ 08/03/16 19:45 09/02/16 19:44 Warfarin Sodium (Coumadin Tab) 1.5 mg TuFr@1600 PO 08/04/16 16:00 09/03/16 15:59 08/04/16 17:37 1.5 MG Insulin Aspart (novoLOG ASPART) SLIDING SCALE ACHS SC 08/03/16 21:00 09/02/16 20:59 08/06/16 12:05 16 UNITS Diltiazem HCl (Cardizem Tab) 30 mg TID PO 08/05/16 21:00 09/04/16 20:59 08/06/16 14:30 30 MG Insulin Glargine (Lantus Solostar Pen) 20 unit BID SC 08/06/16 21:00 09/05/16 20:59 Lab Results: 08/06/16 06:24 Red Blood Count 4.17, Mean Corpuscular Volume 93.8, Mean Corpuscular Hemoglobin 30.7, Mean Corpuscular Hemoglobin Concent 32.7, Mean Platelet Volume 10.5, Neutrophils (%) (Auto) 63.8, Lymphocytes (%) (Auto) 20.0, Monocytes (%) (Auto) 11.7, Eosinophils (%) (Auto) 3.9, Basophils (%) (Auto) 0.3, Neutrophils # (Auto ) 4.86, Lymphocytes # (Auto) 1.52, Monocytes # (Auto) 0.89, Eosinophils # (Auto ) 0.30, Basophils # (Auto) 0.02 08/06/16 06:24 Test 08/06/16 06:24 08/06/16 10:46 White Blood Count 7.61 K/uL (4.8-10.8) Red Blood Count 4.17 M/uL (4.7-6.1) Hemoglobin 12.8 g/dL (14.0-18.0) Hematocrit 39.1 % (42-52) Mean Corpuscular Volume 93.8 fL (80-100) Mean Corpuscular Hemoglobin 30.7 pg (25-34) Mean Corpuscular Hemoglobin Concent 32.7 g/dl (32-36) Platelet Count 226 K/uL (130-400) Mean Platelet Volume 10.5 fL (7.4-10.4) Neutrophils (%) (Auto) 63.8 % Lymphocytes (%) (Auto) 20.0 % Monocytes (%) (Auto) 11.7 % Eosinophils (%) (Auto) 3.9 % Basophils (%) (Auto) 0.3 % Neutrophils # (Auto) 4.86 K/uL (1.4-6.5) Lymphocytes # (Auto) 1.52 K/uL (1.2-3.4) Monocytes # (Auto) 0.89 K/uL (0.11-0.59) Eosinophils # (Auto) 0.30 K/uL (0-0.5) Basophils # (Auto) 0.02 K/uL (0-0.2) RDW Standard Deviation 49.5 fL (36.4-46.3) RDW Coefficient of Variation 14.6 % (11.5-14.5) Immature Granulocyte % (Auto) 0.3 % Immature Granulocyte # (Auto) 0.02 K/uL (0.00-0.02) Prothrombin Time 20.9 SECONDS (9.0-12.0) Prothromb Time International Ratio 1.9 (0.9-1.1) Anion Gap 8.0 mmol/L (3-11) Est Creatinine Clear Calc Drug Dose 48.1 ml/min Estimated GFR () 47.6 Estimated GFR (Non- 41.1 BUN/Creatinine Ratio 18.0 (10-20) Calcium Level 8.8 mg/dl (8.5-10.1) Magnesium Level 2.0 mg/dl (1.8-2.4) Bedside Glucose 192 mg/dl (70-99)
[2016-08-06] MEDS ORDERED: NURSING VERBAL MED ORDER ONE (16:00)
[2016-08-06] MEDS ORDERED: METO50TA16 PO (16:09)
[2016-08-06] MEDS ORDERED: INSDGIPEN SC (16:09)
[2016-08-06] MEDS ORDERED: DILT120C99 PO (16:09)
--- NOTE | 2016-08-06 16:14 | Discharge Instructions ---
Discharge Instructions Date of Service Aug 06, 2016. Admission Reason for Admission: Atrial Fibrillation W/ Rapid Ventricular Response Discharge Discharge Diagnosis / Problem: Atrial fibrillation with rapid ventricular response Discharge Goals Goal(s): Improve disease control, Therapeutic intervention Activity Recommendations Activity Limitations: resume your previous activity Exercise/Sports Limitations: none Shower/Bathe: no limitations Driving or Machine Use: no limitations . Instructions / Follow-Up Instructions / Follow-Up You were admitted with rapid atrial flutter and fibrillation. You had a cardioversion procedure to convert your heart to a regular rhythm, but then your heart went back into atrial fibrillation. The fast rate was controlled by increasing the dose of your metoprolol and adding on a new medication called diltiazem. Please continue these meds at home. Your INR on the day of discharge was slightly low at 1.9. You were given Warfarin 4.5mg on 08/06/16 and then should revert to your usual regimen of Warfarin after that. Please check your INR as planned on Wednesday. Please follow up with your PCP and with Cardiology as scheduled for you. Current Hospital Diet Patient's current hospital diet: Diabetes Type 2 Diet, AHA Diet (Heart Healthy) Discharge Diet Recommended Diet: AHA Diet (Heart Healthy), Diabetes Type 2 Diet Procedures Procedures Performed: DC Cardioversion Chest xray Echocardiogram Pending Studies Studies pending at discharge: no Laboratory Results Last 24 Hours Test 08/05/16 16:28 08/05/16 20:01 08/06/16 06:24 08/06/16 06:48 Bedside Glucose 170 mg/dl 197 mg/dl 120 mg/dl White Blood Count 7.61 K/uL Red Blood Count 4.17 M/uL Hemoglobin 12.8 g/dL Hematocrit 39.1 % Mean Corpuscular Volume 93.8 fL Mean Corpuscular Hemoglobin 30.7 pg Mean Corpuscular Hemoglobin Concent 32.7 g/dl Platelet Count 226 K/uL Mean Platelet Volume 10.5 fL Neutrophils (%) (Auto) 63.8 % Lymphocytes (%) (Auto) 20.0 % Monocytes (%) (Auto) 11.7 % Eosinophils (%) (Auto) 3.9 % Basophils (%) (Auto) 0.3 % Neutrophils # (Auto) 4.86 K/uL Lymphocytes # (Auto) 1.52 K/uL Monocytes # (Auto) 0.89 K/uL Eosinophils # (Auto) 0.30 K/uL Basophils # (Auto) 0.02 K/uL RDW Standard Deviation 49.5 fL RDW Coefficient of Variation 14.6 % Immature Granulocyte % (Auto) 0.3 % Immature Granulocyte # (Auto) 0.02 K/uL Prothrombin Time 20.9 SECONDS Prothromb Time International Ratio 1.9 Sodium Level 141 mmol/L Potassium Level 4.1 mmol/L Chloride Level 109 mmol/L Carbon Dioxide Level 24 mmol/L Anion Gap 8.0 mmol/L Blood Urea Nitrogen 31 mg/dl Creatinine 1.70 mg/dl Est Creatinine Clear Calc Drug Dose 48.1 ml/min Estimated GFR () 47.6 Estimated GFR (Non- 41.1 BUN/Creatinine Ratio 18.0 Random Glucose 113 mg/dl Calcium Level 8.8 mg/dl Magnesium Level 2.0 mg/dl Test 08/06/16 10:46 Bedside Glucose 192 mg/dl Hemoglobin A1c Test 08/04/16 09:12 Range/Units Estimated Average Glucose 131 mg/dl Hemoglobin A1c 6.2 H 4.5-5.6 % Lipid Panel Test 07/07/16 07:49 Range/Units Triglycerides Level 174 H 0-150 mg/dl Cholesterol Level 134 0-200 mg/dl HDL Cholesterol 22 mg/dl Cholesterol/HDL Ratio 6.1 LDL Cholesterol, Calculated 77 mg/dl Medical Emergencies . Who to Call and When: Medical Emergencies: If at any time you feel your situation is an emergency, please call 911 immediately. . Non-Emergent Contact Non-Emergency issues call your: Primary Care Provider, Knitter Helper Call Non-Emergent contact if: you have any medication questions you have palpitations, worsening shortness of breath, or lightheadedness. . . "Provider Documentation" section prepared by Jenae Manrique. . VTE Core Measure Inpt VTE Proph given/why not?: Warfarin (Coumadin)
[2016-08-06] MEDS ORDERED: WARFARIN TAB 2 MG, WARFARIN TAB 2.5 MG PO ONE ×2 (16:15)
[2016-08-06 16:39] VITALS: BP 119/75; PULSE 92; TEMP 36.5; O2SAT 96
[2016-08-06] MEDS ORDERED: INSULIN GLARGINE SOLOSTAR 100 UNITS/ML 3 ML PEN SC SCH (21:00)
--- NOTE | 2016-08-06 21:56 | Discharge Summary ---
Discharge Summary Date of Service Aug 06, 2016. Discharge Summary Admission Date: Aug 03, 2016 at 18:05 Discharge Date: Aug 06, 2016 Discharge Disposition: Home Principal Diagnosis: Rapid atrial flutter/fibrillation Problems/Secondary Diagnoses: History of mitral valve repair CKD Stage III Peripheral neuropathy Nephrolithiasis BPH DMII Chronic systolic and diastolic CHF HTN Mild mitral stenosis Mild PHTN Dyslipidemia Hematuria-chronic Immunizations: Have You Had Influenza Vaccine: Yes History of Tetanus Vaccine?: utd History of Pneumococcal: Yes History of Hepatitis B Vaccine: Unknown [facility] Consultations: Cardiology Medication Reconciliation New Medications: Diltiazem Hcl Coated Beads (Diltiazem Cd) 120 Mg Cap 120 MG PO QAM for 30 Days, #30 CAP Metoprolol Tartrate (Lopressor) (Lopressor) 50 Mg Tab 50 MG PO BID for 30 Days, #60 TAB Changed Medications: Insulin Glargine (Lantus Solostar) 100 Unit/Ml Inj 60 UNITS SC HS for 30 Days (Medication details modified) TAKE 40 UNITS TONIGHT ON 08/06/16 AND THEN GO BACK TO TAKING 60 UNITS EACH EVENING ON 08/07/16 Continued Medications: Amoxicillin (Amoxil) 500 Mg Cap 4 MG PO DIRECTED PRN for dental procedure Cyanocobalamin (Vitamin B12) 3,000 Mcg/Ml Sg 1 DOSE IM MONTHLY Fenofibrate (Tricor) 160 Mg Tab 160 MG PO QPM Insulin Aspart (Novolog Flexpen) 100 Units/Ml Inj 30 UNITS SC TIDM Lisinopril (Prinivil) 10 Mg Tab 10 MG PO QAM [place]-3 Fatty Acids ([place] 3) 1 Cap Cap 1200 MG PO QAM Pregabalin (Lyrica) 150 Mg Cap 150 MG PO TID Simvastatin (Zocor) 20 Mg Tab 20 MG PO QPM Tamsulosin HCl (Tamsulosin HCl) 0.4 Mg Cap 0.4 MG PO DAILY Tramadol (Ultram) 50 Mg Tab 50 MG PO Q8 PRN for Pain Warfarin Sod (Jantoven) 3 Mg Tab 3 MG PO 5XWK SUN,MON,WED,THUR,SAT Warfarin Sodium (Warfarin Sodium) 3 Mg Tab 1.5 MG PO 2XWK TUES,FRI Discontinued Medications: Metoprolol Tartrate (Lopressor) 25 Mg Tab 25 MG PO BID Discharge Exam Feeling well. No CP or SOB. Heart rates better controlled today with addition of diltiazem. Physical Exam General Appearance: WD/WN, no apparent distress, + obese Eyes: normal inspection, sclerae normal ENT: hearing grossly normal Neck: trachea midline Respiratory/Chest: no respiratory distress, no accessory muscle use, CTAB Cardiovascular: no murmur, + irregularly irregular with normal rate Abdomen: normal bowel sounds, non tender, soft Extremities: non-tender, normal inspection (except trace pitting edema) Neurologic/Psychiatric: alert, normal mood/affect, oriented x 3 Skin: normal color, warm/dry, no rash Review of Systems: Constitutional: No fever Eyes: No problem reported ENT: No problem reported Respiratory: No problem reported Cardiovascular: No chest pain Abdomen: No problem reported Musculoskeletal: No problem reported Genitourinary - Male: No problem reported Neurologic: No problem reported Psychiatric: No problem reported Endocrine: No problem reported Hematologic / Lymphatic: No problem reported Integumentary: No problem reported Hospital Course 66M with a PMHx of known PAfib/flutter (on Coumadin), MVR, CKD Stage III, peripheral neuropathy, nephrolithiasis, BPH, and DM2 presents w A-flutter with RVR. He received 15mg IV Lopressor in the ER and was initially started on a Cardizem gtt A Flutter with RVR/Chronic systolic and diastolic CHF, h/o MVR/ HTN-Pt has likely been in Afib for a few weeks with symptoms when he walks up stairs. At rest he is asymptomatic. ECHO with low normal EF 50-55%, MV ring and mild MS, mild PHTN - Cardiology Consulted--> DCCV performed successfully but then went into rapid A -fib again next AM - continue Metoprolol 50mg BID and discussed with Cardiology--> will go with rate control for now, added diltiazem 30mg po tid and had good response -plan to dc to home on Cardizem CD 120mg once daily - continue Coumadin for AC, INR 1.9 today--> gave one time dose 4.5mg on day of discharge, then return to home regimen and check INR as scheduled on 08/11 -continue home lisinopril, metoprolol at increased dose, statin,Tricor DM2-HgbA1C well controlled at 6.2% here -SSI, accuchecks, Lantus all provided CKD stage III- - epidemiology internship 1.9 on admission, now improved and stable at 1.7, chronic baseline around 2.0, sees nephrology. renally dose meds -avoid nephrotoxins Hematuria (chronic) - According to pt this is a chronic condition and he's seeing urology for 1.5cm left renal stone removal. Asymptomatic. Denies dysuria. No CVA tenderness. - CT from 05/13/16 "16mm non obstructing stone in the left renal pelvis" - UA 3+ occult blood here-stable LE Neuropathy-stable - c/w Pregabalin 150mg TID. - c/w Ultram 50mg TID HLD - c/w Simvastatin 20mg daily BPH - c/w Tamsulosin 0.4mg Proph-coumadin Dispo to home today Full Code Total Time Spent: Greater than 30 minutes This includes examination of the patient, discharge planning, medication reconciliation, and communication with other providers. Discharge Instructions Please refer to the electronic Patient Visit Report (Discharge Instructions) for additional information. Follow-Up PCP within 1 week Cardiology in 2 weeks Additional Copies To Elpidio Naranjo MD; Jennifer Romero MD; Marco Velasco M.D.
[2016-09-10] MEDS ORDERED: FLM4 PO (16:59)
== END 2016-08-06 18:06 | disposition home or self-care (01) | DRG 309 ==
LOC: C.EDB 15:47 → C.2T 18:05 → ENRESERV 18:32
PROVIDERS: ADMIT Internal Medicine; ATTEND Family Medicine
PROC: 5A2204Z Restoration of Cardiac Rhythm, Single (ICD-10-PCS; principal; 2016-08-04 12:30)
DX: I48.92 Unspecified atrial flutter (principal); I13.0 Hypertensive heart and chronic kidney disease with heart failure and stage 1 through stage 4 chronic kidney disease, or unspecified chronic kidney disease; I50.42 Chronic combined systolic (congestive) and diastolic (congestive) heart failure; I48.0 Paroxysmal atrial fibrillation; I95.9 Hypotension, unspecified; E11.22 Type 2 diabetes mellitus with diabetic chronic kidney disease; N18.3 Chronic kidney disease, stage 3 (moderate); E11.42 Type 2 diabetes mellitus with diabetic polyneuropathy; E78.5 Hyperlipidemia, unspecified; N40.0 Benign prostatic hyperplasia without lower urinary tract symptoms; E53.8 Deficiency of other specified B group vitamins; E55.9 Vitamin D deficiency, unspecified; I25.10 Atherosclerotic heart disease of native coronary artery without angina pectoris; G47.33 Obstructive sleep apnea (adult) (pediatric); E66.9 Obesity, unspecified; Z68.37 Body mass index [BMI] 37.0-37.9, adult; Z95.2 Presence of prosthetic heart valve; Z96.652 Presence of left artificial knee joint; Z79.01 Long term (current) use of anticoagulants; Z79.4 Long term (current) use of insulin; Z79.891 Long term (current) use of opiate analgesic; Z79.899 Other long term (current) drug therapy

== ENCOUNTER 2016-09-10 18:35 | Emergency (ER) | payer BC ==
[~2016-09-10] VITALS: Ht 167.6 cm; Wt 102.7 kg
[~2016-09-10 18:35] MED LIST changes: +FLM4 PO; -LPR25 PO; +METO50TA16 PO; -TAMS0.4C38 PO
[2016-09-10 18:43] VITALS: TEMP 37.1; Ht 167.6 cm; Wt 102.7 kg
[2016-09-10] MEDS ORDERED: INSDGI SC (19:36)
[2016-09-10] MEDS ORDERED: ROSU5TAB PO (19:36)
[2016-09-10] MEDS ORDERED: METO50TA7 PO (19:37)
[2016-09-10] MEDS ORDERED: WARF3TAB6 PO (19:42)
[2016-09-10] MEDS ORDERED: DILT120C51 PO (19:42)
[2016-09-10] MEDS ORDERED: MoRPHine SULFATE 4 MG/ML 1 ML CARP\\VIAL IV STA (20:16)
[2016-09-10] MEDS ORDERED: LORAZEPAM 2 MG/ML 1 ML VIAL IV STA (20:16)
[2016-09-10] MEDS ORDERED: SODIUM CHLORIDE 0.9% 1000ML 1,000 ML IV STA (20:16)
[2016-09-10] MEDS ORDERED: ONDANSETRON INJ 2 MG/ML 2 ML VIAL IV STA (20:19)
--- NOTE | 2016-09-10 20:20 | EMERGENCY ROOM VISIT NOTE ---
History Report prepared by Madhuri: Shama Sherman Under the Supervision of: Dr. Guillermina Boateng M.D. First contact with patient: 18:49 Chief Complaint: NECK PAIN Stated Complaint: NECK/SHOULDER/HEAD PAIN History of Present Illness The patient is a 66 year old male who presents to the Emergency Room with complaints of constant upper back pain beginning today. The patient states that he is having pain that radiates from his upper back through both shoulder blades to neck and head. He reports that his pain is worsened by moving his head and is slightly worse on the left side. He notes that the pain feels muscular. The patient states that he has a history of diabetes and atrial fibrillation and is on blood thinners. He denies any chest pain, abdominal pain , and history of blood clots. He notes that he currently has a kidney stone. Source of History: patient Onset: today Position: back (upper) Quality: other (radiating) Timing: constant Associated Symptoms: + headache, + neck pain, No chest pain, No abdominal pain Note: Pt complains of bilateral shoulder pain. Review of Systems See HPI for pertinent positives & negatives. A total of 10 systems reviewed and were otherwise negative. Past Medical & Surgical Medical Problems: (1) ANEMIA NOS (2) Atrial fibrillation with rapid ventricular response (3) ATRIAL FLUTTER (4) CALCULUS OF URETER (5) CONGESTIVE HEART FAILURE NOS (6) CORONARY ATHEROSCLEROSIS OF [place] CORONARY VESSEL (7) DIAB W NEURO MANIFEST, TYPE II OR UNSPEC TYPE, NOT UNCNTRLD (8) HEART VALVE REPLAC NEC (9) HYPERLIPIDEMIA NEC/NOS (10) HYPERTENSION NOS (11) NEUROPATHY IN DIABETES Family History Diabetes mellitus FH: heart disease Hypertension Social History Smoking Status: Never Smoker Alcohol Use: occasionally Drug Use: none Marital Status: Housing Status: lives with family Occupation Status: retired Current/Historical Medications Scheduled Cyanocobalamin (Vitamin B12), 1 DOSE IM MONTHLY Diltiazem Hcl Coated Beads (Cardizem Cd), 120 MG PO DAILY Fenofibrate (Tricor), 160 MG PO QPM Insulin Aspart (Novolog Flexpen), 30 UNITS SC TIDM Insulin Glargine (Lantus), 60 SC QPM Metoprolol Succ (Toprol Xl) (Toprol-Xl), 37.5 MG PO DAILY [place]-3 Fatty Acids ([place] 3), 1,200 MG PO QAM Pregabalin (Lyrica), 150 MG PO TID Tamsulosin HCl (Tamsulosin HCl), 0.4 MG PO DAILY Warfarin Sod (Jantoven), 3 MG PO UD Scheduled PRN Amoxicillin (Amoxil), 4 MG PO DIRECTED PRN for dental procedure Hydrocodone/Acetaminophen 5MG/325MG (Herreid 5MG/325MG), 1 TABLET PO Q6 PRN for Pain Lorazepam (Ativan), 0.5 MG PO TID PRN for Muscle Spasms Tramadol (Ultram), 50 MG PO Q8 PRN for Pain Miscellaneous Medications Rosuvastatin Calcium (Crestor), 5 MG PO Allergies Coded Allergies: No Known Allergies (Unverified , 08/03/16) Physical Exam Vital Signs Date Time Temp Pulse Resp B/P (MAP) Pulse Ox O2 Delivery O2 Flow Rate FiO2 09/11/16 00:32 129/93 09/11/16 00:25 94 20 94 09/11/16 00:02 109/79 09/10/16 23:55 105 17 88 09/10/16 23:50 111 18 93 Room Air 09/10/16 23:31 123/91 09/10/16 23:20 96 17 94 09/10/16 23:15 128 138/76 09/10/16 23:14 138/76 09/10/16 23:09 134 09/10/16 22:50 99 14 91 09/10/16 21:10 108 18 100/79 93 Room Air 09/10/16 19:05 114 09/10/16 18:43 37.1 72 20 111/47 92 Room Air Physical Exam Vital signs reviewed. General: Well-appearing male, in no significant distress. HEENT: No scleral icterus, PERRLA, neck supple. Atraumatic. Cardiovascular: Regular rate and rhythm, no extra sounds. Pulmonary: Clear to auscultation bilaterally, normal work of breathing. Abdomen: Soft, nontender, nondistended, positive bowel sounds. Musculoskeletal: Atraumatic, no peripheral edema. Tender to the left greater than right trapezius muscles, pain with rotation of the head. Neurologic: Patient awake alert and oriented x 3, full strength in all 4 extremities. Cranial nerves 2 through 12 grossly intact. Skin: Warm, dry, no rash Medical Decision & Procedures ER Provider Diagnostic Interpretation: Radiology results as stated below per my review and radiologist interpretation: CHEST ONE VIEW PORTABLE FINDINGS: Chronic valvular prosthesis is again seen with mild cardiomegaly. Surgical clips project over the right mediastinum and right lung base. There is atherosclerosis of the aorta. No pneumothorax or pleural effusion. There are unchanged hazy right greater than left bibasilar opacities. Mild pulmonary vascular congestion is redemonstrated. Evidence of prior right rotator cuff repair. IMPRESSION: 1. Cardiomegaly with persistent mild pulmonary vascular congestion. 2. Hazy right greater than left bibasilar opacities are unchanged suggesting atelectasis. The above report was generated using voice recognition software. It may contain grammatical, syntax or spelling errors. Electronically signed by: Aaron Greenberg M.D. 09/10/2016 9:57 PM Dictated Date/Time: 09/10/2016 9:55 PM C-SPINE ROUTINE 4 OR 5 VIEWS FINDINGS: The inferior most portion of the seventh vertebral segment is obscured by overlying shoulder. Intervertebral disc space narrowing is seen most prominently at the C4-C5, C5-C6 and C6-C7 levels. There is associated moderate uncovertebral spurring and facet arthrosis also at these levels. These findings cause at least mild foraminal narrowing on the right without significant left-sided foraminal stenosis identified. There is no acute fracture or dislocation. There is atherosclerotic plaquing of the left carotid bulb. Imaged lung apices appear clear. There is convex left curvature of the upper thoracic spine. The odontoid process is partially secured by patient's teeth. IMPRESSION: 1. No acute cervical spine fracture or dislocation. 2. Multilevel degenerative changes of the cervical spine, most pronounced at the C4-C5, C5-C6 and C6-C7 levels resulting in varying degrees of right-sided neural foraminal narrowing. 3. Atherosclerotic plaquing of the left carotid bulb incidentally noted. The above report was generated using voice recognition software. It may contain grammatical, syntax or spelling errors. Electronically signed by: Aaron Greenberg M.D. 09/10/2016 9:54 PM Dictated Date/Time: 09/10/2016 9:52 PM Laboratory Results 09/10/16 20:30 Red Blood Count 4.70, Mean Corpuscular Volume 91.1, Mean Corpuscular Hemoglobin 30.6, Mean Corpuscular Hemoglobin Concent 33.6, Mean Platelet Volume 10.4, Neutrophils (%) (Auto) 76.6, Lymphocytes (%) (Auto) 11.4, Monocytes (%) (Auto) 11.2, Eosinophils (%) (Auto) 0.5, Basophils (%) (Auto) 0.1, Neutrophils # (Auto ) 11.26, Lymphocytes # (Auto) 1.67, Monocytes # (Auto) 1.65, Eosinophils # (Auto ) 0.07, Basophils # (Auto) 0.01 09/10/16 20:30 Test 09/10/16 20:30 09/10/16 20:38 09/10/16 21:13 White Blood Count 14.69 K/uL (4.8-10.8) Red Blood Count 4.70 M/uL (4.7-6.1) Hemoglobin 14.4 g/dL (14.0-18.0) Hematocrit 42.8 % (42-52) Mean Corpuscular Volume 91.1 fL (80-100) Mean Corpuscular Hemoglobin 30.6 pg (25-34) Mean Corpuscular Hemoglobin Concent 33.6 g/dl (32-36) Platelet Count 284 K/uL (130-400) Mean Platelet Volume 10.4 fL (7.4-10.4) Neutrophils (%) (Auto) 76.6 % Lymphocytes (%) (Auto) 11.4 % Monocytes (%) (Auto) 11.2 % Eosinophils (%) (Auto) 0.5 % Basophils (%) (Auto) 0.1 % Neutrophils # (Auto) 11.26 K/uL (1.4-6.5) Lymphocytes # (Auto) 1.67 K/uL (1.2-3.4) Monocytes # (Auto) 1.65 K/uL (0.11-0.59) Eosinophils # (Auto) 0.07 K/uL (0-0.5) Basophils # (Auto) 0.01 K/uL (0-0.2) RDW Standard Deviation 45.1 fL (36.4-46.3) RDW Coefficient of Variation 13.5 % (11.5-14.5) Immature Granulocyte % (Auto) 0.2 % Immature Granulocyte # (Auto) 0.03 K/uL (0.00-0.02) Anion Gap 10.0 mmol/L (3-11) Est Creatinine Clear Calc Drug Dose 51.0 ml/min Estimated GFR () 51.3 Estimated GFR (Non- 44.2 BUN/Creatinine Ratio 12.5 (10-20) Calcium Level 9.6 mg/dl (8.5-10.1) Magnesium Level 1.6 mg/dl (1.8-2.4) Total Bilirubin 0.8 mg/dl (0.2-1) Direct Bilirubin 0.3 mg/dl (0-0.2) Aspartate Amino Transf (AST/SGOT) 24 U/L (15-37) Alanine Aminotransferase (ALT/SGPT) 20 U/L (12-78) Alkaline Phosphatase 59 U/L (45-117) Troponin I < 0.015 ng/ml (0-0.045) Total Protein 7.8 gm/dl (6.4-8.2) Albumin 3.6 gm/dl (3.4-5.0) Bedside D-Dimer 6 ng/mlFEU (0-450) Bedside Troponin I ng/ml (0-0.045) Prothrombin Time 30.4 SECONDS (9.0-12.0) Prothromb Time International Ratio 2.7 (0.9-1.1) Activated Partial Thromboplast Time 42.9 SECONDS (21.0-31.0) Partial Thromboplastin Ratio 1.7 D-Dimer 300 ug/L FEU (0-500) Laboratory results per my review. Medications Administered Medications (Trade) Dose Ordered Sig/Katarzyna Route Start Time Stop Time Status Last Admin Dose Admin Lorazepam (Ativan Inj) 1 mg NOW STAT IV 09/10/16 20:16 09/10/16 20:19 DC 09/10/16 21:28 1 MG Morphine Sulfate (MoRPHine SULFATE INJ) 4 mg NOW STAT IV 09/10/16 20:16 09/10/16 20:19 DC 09/10/16 21:29 4 MG Sodium Chloride 1,000 ml @ 125 mls/hr Q8H STAT IV 09/10/16 20:16 09/11/16 00:53 DC 09/10/16 21:29 125 MLS/HR Ondansetron HCl (Zofran Inj) 4 mg NOW STAT IV 09/10/16 20:19 09/10/16 20:20 DC 09/10/16 21:30 4 MG Metoprolol Tartrate (Lopressor Iv) 5 mg NOW STAT IV 09/10/16 22:49 09/10/16 22:51 DC 09/10/16 23:15 5 MG Metoprolol Succinate (Toprol Xl Tab) 25 mg NOW STAT PO 09/10/16 23:27 09/10/16 23:28 DC 09/10/16 23:49 25 MG ECG Indication: back/shoulder pain Rate (beats per minute): 125 Rhythm: atrial fibrillation Findings: PVC (frequent), no acute ischemic change, other (T wave abnormalities in the inferior leads) ED Course 184: Past medical records reviewed. The patient was evaluated in room A10. A complete history and physical examination was performed. 2016: Sodium Chloride 1000 ml @ 125 mls/hr IV, Morphine Sulfate 4mg IV, Ativan Inj 1mg IV. 2019: Zofran Inj 4mg IV. 2249: Lopressor IV 5mg IV. 2304: I reevaluated and updated the patient. 2310: Lopressor IV 5mg IV. 2327: Metoprolol Succinate 25mg PO. 2355: Upon reevaluation, the patient appeared to have improvement of his symptoms. I discussed findings with the patient. He verbalized agreement of the treatment plan. The patient was discharged home. Medical Decision Differential diagnosis includes aortic dissection, PE, coronary syndrome, muscular strain, cervical radiculopathy, torticollis. This patient was evaluated and appeared to be in no significant distress. IV access was obtained and laboratory work was drawn. The patient was placed on the cardiac care nurse and found to be in a rapid atrial fibrillation. Patient states he did not take his medications today. He was given IV metoprolol. He did receive IV morphine, Ativan and Zofran. He was hydrated with normal saline solution. Patient's laboratory work is fairly unrevealing including a d-dimer. Cervical spine x-rays are as above however there is significant degenerative change. There does not appear to be an acute injury. The patient was feeling improved after the above medications. He was observed until his heart rate was under better control. He is in chronic atrial fibrillation and anticoagulated. The patient was given Toprol XL orally. He was discharged with a prescription for when necessary Ativan and Herreid and instructed not to drive on these medications. The patient will follow-up with his primary care provider this week for reevaluation return to the ER for worsening of symptoms or any medical concerns. Medication Reconcilliation Current Medication List: was personally reviewed by me Blood Pressure Screening Patient's blood pressure: Normal blood pressure Blood pressure disposition: Did not require urgent referral Impression Primary Impression: Cervical paraspinous muscle spasm Scribe Attestation The scribe's documentation has been prepared under my direction and personally reviewed by me in its entirety. I confirm that the note above accurately reflects all work, treatment, procedures, and medical decision making performed by me. Departure Information Dispostion Home / Self-Care Prescriptions Hydrocodone/Acetaminophen 5MG/325MG (Herreid 5MG/325MG) Tab 1 TABLET PO Q6 Y for Pain, #20 TAB Prov: Guillermina Boateng M.D. 09/10/16 Lorazepam (ATIVAN) 0.5 Mg Tab 0.5 MG PO TID Y for Muscle Spasms, #20 TAB Prov: Guillermina Boateng M.D. 09/10/16 Referrals Pro,Marco Stahl M.D. (PCP) Forms HOME CARE DOCUMENTATION FORM, IMPORTANT VISIT INFORMATION, WORK / SCHOOL INSTRUCTIONS Patient Instructions [facility] Additional Instructions Diagnosis: Cervical paraspinous muscle spasm Herreid 1 tab every 6 hours as needed for pain, do not drive or take tylenol with this medication. Ativan 0.5 mg three times daily as needed for muscle spasms. Follow up with your doctor this week for reevaluation, consider physical therapy if symptoms persist. Return to the ED for worsening of symptoms or any medical concerns.
[2016-09-10 21:00] LABS: ALT/SGPT 20 U/L (12-78); BLOOD UREA NITROGEN 20 mg/dl (7-18); BUN/CREATININE RATIO 12.5 (10-20); CALCIUM 9.6 mg/dl (8.5-10.1); CARBON DIOXIDE 26 mmol/L (21-32); CHLORIDE 103 mmol/L (98-107); GLUCOSE 75 mg/dl (70-99); MAGNESIUM 1.6 mg/dl (1.8-2.4); SODIUM 139 mmol/L (136-145)
[2016-09-10 21:03] LABS: ALKALINE PHOSPHATASE 59 U/L (45-117); AST/SGOT 24 U/L (15-37); BASO % 0.1 %; BASO ABS # 0.01 K/uL (0-0.2); COMPLETE YES; EOS % 0.5 %; HEMATOCRIT 42.8 % (42-52); IG% 0.2 %; LYMPH % 11.4 %; LYMPH ABS # 1.67 K/uL (1.2-3.4); MEAN CELL VOLUME 91.1 fL (80-100); MEAN CORPUSCULAR HEMOGLOBIN 30.6 pg (25-34); MEAN CORPUSCULAR HGB CONC 33.6 g/dl (32-36); MEAN PLATELET VOLUME 10.4 fL (7.4-10.4); MONO % 11.2 %; NEUT % 76.6 %; PLATELET COUNT 284 K/uL (130-400); WHITE BLOOD COUNT 14.69 K/uL (4.8-10.8)
[2016-09-10 21:35] LABS: INR 2.7 (0.9-1.1); PARTIAL THROMBOPLASTIN RATIO 1.7; PROTHROMBIN TIME (PATIENT) 30.4 SECONDS (9.0-12.0)
--- NOTE | 2016-09-10 21:56 | DIAGNOSTIC IMAGING REPORT ---
C-SPINE ROUTINE 4 OR 5 VIEWS HISTORY: 66 years-old Male neck upper back pain COMPARISON: None available TECHNIQUE: 5 views of the cervical spine FINDINGS: The inferior most portion of the seventh vertebral segment is obscured by overlying shoulder. Intervertebral disc space narrowing is seen most prominently at the C4-C5, C5-C6 and C6-C7 levels. There is associated moderate uncovertebral spurring and facet arthrosis also at these levels. These findings cause at least mild foraminal narrowing on the right without significant left-sided foraminal stenosis identified. There is no acute fracture or dislocation. There is atherosclerotic plaquing of the left carotid bulb. Imaged lung apices appear clear. There is convex left curvature of the upper thoracic spine. The odontoid process is partially secured by patient's teeth. IMPRESSION: 1. No acute cervical spine fracture or dislocation. 2. Multilevel degenerative changes of the cervical spine, most pronounced at the C4-C5, C5-C6 and C6-C7 levels resulting in varying degrees of right-sided neural foraminal narrowing. 3. Atherosclerotic plaquing of the left carotid bulb incidentally noted. The above report was generated using voice recognition software. It may contain grammatical, syntax or spelling errors. Electronically signed by: Aaron Greenberg M.D. 09/10/2016 9:54 PM Dictated Date/Time: 09/10/2016 9:52 PM
--- NOTE | 2016-09-10 21:58 | DIAGNOSTIC IMAGING REPORT ---
CHEST ONE VIEW PORTABLE HISTORY: 66 years-old Male recent afib, upper back pain COMPARISON: 08/03/2016 TECHNIQUE: Portable upright AP view of the chest FINDINGS: Chronic valvular prosthesis is again seen with mild cardiomegaly. Surgical clips project over the right mediastinum and right lung base. There is atherosclerosis of the aorta. No pneumothorax or pleural effusion. There are unchanged hazy right greater than left bibasilar opacities. Mild pulmonary vascular congestion is redemonstrated. Evidence of prior right rotator cuff repair. IMPRESSION: 1. Cardiomegaly with persistent mild pulmonary vascular congestion. 2. Hazy right greater than left bibasilar opacities are unchanged suggesting atelectasis. The above report was generated using voice recognition software. It may contain grammatical, syntax or spelling errors. Electronically signed by: Aaron Greenberg M.D. 09/10/2016 9:57 PM Dictated Date/Time: 09/10/2016 9:55 PM
[2016-09-10] MEDS ORDERED: METOPROLOL TARTRATE 1 MG/ML VIAL IV STA (22:49)
[2016-09-10] MEDS ORDERED: METOPROLOL TARTRATE 1 MG/ML VIAL ONE (23:10)
[2016-09-10] MEDS ORDERED: METOPROLOL SUCC 50MG EXT REL TAB PO STA (23:27)
[2016-09-10] MEDS ORDERED: LORA-741 PO (23:49)
[2016-09-10] MEDS ORDERED: HYDR-5688 PO (23:49)
[2016-09-11 00:25] VITALS: PULSE 94; O2SAT 94
[2016-09-11 00:32] VITALS: BP 129/93
== END 2016-09-11 00:49 | disposition home or self-care (01) ==
LOC: C.EDB 18:36 → C.EDA 09-11 00:49
DX: M62.838 Other muscle spasm (principal); I48.91 Unspecified atrial fibrillation; I10 Essential (primary) hypertension; E11.9 Type 2 diabetes mellitus without complications; E78.5 Hyperlipidemia, unspecified; I25.10 Atherosclerotic heart disease of native coronary artery without angina pectoris; I48.92 Unspecified atrial flutter; I50.9 Heart failure, unspecified; Z79.01 Long term (current) use of anticoagulants; Z95.2 Presence of prosthetic heart valve; Z79.4 Long term (current) use of insulin; Z79.899 Other long term (current) drug therapy; Z83.3 Family history of diabetes mellitus; Z82.49 Family history of ischemic heart disease and other diseases of the circulatory system

== ENCOUNTER → 2016-10-01 | Outpatient (CLI) | payer BC ==
[~2016-10-01] MED LIST changes: +DILT120C51 PO; +HYDR-5688 PO; +INSDGI SC; -INSDGIPEN SC; -LISI10TA PO; -METO50TA16 PO; +METO50TA7 PO; +ROSU5TAB PO; -SIMV20TA2 PO; -WARF-285 PO
[2016-10-01 15:52] LABS: BASO % 0.3 %; BASO ABS # 0.03 K/uL (0-0.2); COMPLETE YES; EOS % 1.8 %; HEMATOCRIT 40.6 % (42-52); IG% 0.2 %; LYMPH % 19.5 %; LYMPH ABS # 1.92 K/uL (1.2-3.4); MEAN CELL VOLUME 90.8 fL (80-100); MEAN CORPUSCULAR HEMOGLOBIN 31.1 pg (25-34); MEAN CORPUSCULAR HGB CONC 34.2 g/dl (32-36); MEAN PLATELET VOLUME 10.5 fL (7.4-10.4); MONO % 7.3 %; NEUT % 70.9 %; PLATELET COUNT 300 K/uL (130-400); RED BLOOD COUNT 4.47 M/uL (4.7-6.1); WHITE BLOOD COUNT 9.84 K/uL (4.8-10.8)
[2016-10-01 16:06] LABS: ALT/SGPT 20 U/L (12-78); AST/SGOT 20 U/L (15-37); BLOOD UREA NITROGEN 24 mg/dl (7-18); BUN/CREATININE RATIO 13.9 (10-20); CALCIUM 9.7 mg/dl (8.5-10.1); CARBON DIOXIDE 25 mmol/L (21-32); CHLORIDE 108 mmol/L (98-107); GLUCOSE 178 mg/dl (70-99); POTASSIUM 4.2 mmol/L (3.5-5.1); SODIUM 139 mmol/L (136-145)
[2016-10-01 16:16] LABS: ALKALINE PHOSPHATASE 59 U/L (45-117)
[2016-10-02 06:58] LABS: ESTIMATED AVERAGE GLUCOSE 134 mg/dl; HA1C FLAG Normal (Normal)
== END | disposition home or self-care (01) ==
LOC: C.LAB1850 14:23
PROVIDERS: ATTEND Internal Medicine
DX: I48.91 Unspecified atrial fibrillation (principal); N18.3 Chronic kidney disease, stage 3 (moderate); E53.8 Deficiency of other specified B group vitamins; E11.22 Type 2 diabetes mellitus with diabetic chronic kidney disease

== ENCOUNTER → 2016-10-28 | Outpatient (CLI) | payer BC ==
--- NOTE | 2016-10-29 06:44 | PAP/PSG TECHNICIAN REPORT ---
[facility] [employer] Examiner Polysomnogram Report Study name: None Report date: 10/29/2016 Study date: 10/28/2016 Referring Physician: DR. CHIRINOS Name: MARISEL BABB Interpreting Physician: Owen Chirinos M.D. Date of : 1950 School Examiner: Sohan Clark [facility]. Sex: Male Age: 66 StudyType: PSG PAP Weight: 227 lbs 20 inches Height: 66 years, Height 5' 5" Neck Circum: BMI: 37.77 Medications: AMOXICILLIN 500 MG, BD ECLIPSE SYRINGE, CYANOCOBALAMIN, DITIAZEM CD 120 MG, FENIFIBRATE 160 MG, LANTUS SOLOSTAR, LYRICA 150 MG, METOPROLOL TARTRATE 50 MG, OMEGA 3, ONE TOUCH ULTRA, ROSUVASTATIN CALCIUM 5 MG, TAMSULOSIN HCL 0.4 MG, TRAMADOL HCL 50 MG, WARFARIN SODIUM 3 MG Patient History PATIENT RECENTLY HAD A SLEEP STUDY DONE AND WAS POSITIVE FOR CALOS WITH AN AHI OF 69.8/HR. HE ALSO HAS HISTORY OF A-FIB, DAYTIME FATIGUE AND HYPERSOMNOLENCE. HE IS HERE TODAY FOR A CPAP TITRATION. ESS= 9 RM 7 Parameters Monitored NPSG: E1-M2, E2-M1, Fp1-M2, Fp2-M1, F3-M2, F4-M2, F4-M1, C3-M2, C4-M2, C4-M1, O1-M2, O2-M2, O2-M1, T3-M2, T4-M1, P3-M2, P4-M1, CHIN1, CHIN2, HR, EKG, Legs, PFLOW, SNOR, FLOW, CFLOW, Tidal Volume, THOR, ABDO, SpO2, PLTH, CPRESS, ETCO2 Wave, ETCO2, pH Sleep Architecture Sleep Stages Time at Lights Off 10:22:58 PM STAGES Time (min.) TST (%) Time at Lights On 6:02:58 AM Wake 41.5 -- Total Recording Time (TRT) 460.50 min. N1 21.5 5 Total Sleep Period (TSP) 442.0 min. N2 277.0 66 Total Sleep Time (TST) 418.5min. N3 53.0 13 Awake Time 41.5 min. REM 67.0 16 Wake after Sleep Onset 23.5 min. Sleep Efficiency (SE) 91 % Sleep Onset Latency (HAIM) 18.0 min. Number of Stage 1 Shifts None Awakenings 15 Stage Changes 100 Number of REM periods 4 REM 67.0 16 REM Latency 179.0 min. NREM 351.5 84 Body Position Analysis Supine Right Left Side Prone Vertical Total Sleep Time (min.) 460.0 0.0 0.0 0.00 0.0 0.0 Total Sleep Time (%) 100% 0% 0% 0 0% N/A% Total Sleep Time REM (min.) 67.0 0.0 0.0 None 0.0 0.0 Total Sleep Time NREM (min.) 351.5 0.0 0.0 None 0.0 0.0 Intermittent Wake (min.) 41.5 0.0 0.0 None 0.0 0.0 Total Sleep Period (%) 100% None None None None None Arousals Myoclonus (PLM) * Events Count Index Events Count Index Spontaneous 31 4 Events Awake (PLMW) 40 57.8 Respiratory 75 10.8 Events Asleep w/ Arousal (PLMA) 2 0.3 PLM 2 0 Events Asleep w/o Arousal (PLMS) 67 9.6 Snoring 18 3 Total Asleep 69 9.9 Total 126 18 Total 109 14 Respiratory Analysis * CA OA MA CH H RERA Total Count 93 9 2 0 89 0 193 Index 13.3 1.3 0.3 0 12.8 0 27.7 Mean Duration 27.5 21.0 28.0 0.00 25.2 0.0 26.2 Longest Duration 35.5 28.9 29.2 0.00 29.2 0.0 51.3 Respiratory Event Summary Total Supine ~Supine Right Left Prone REM NREM Apneas Count 104 104 N/A N/A N/A N/A 0 104 Index 14.9 15 N/A N/A N/A N/A 0 18 Hypopneas (4% Desat) Count 89 89 N/A N/A N/A N/A 9 80 Index 12.8 12.8 N/A N/A N/A N/A 8.1 13.7 Apneas & All Hypopneas Count 193 193 N/A N/A N/A N/A 9 184 Index 27.7 28 N/A N/A N/A N/A 8.1 31.4 Respiratory Events ([employer]+All Hyp+RERA) Count 193 193 N/A N/A N/A N/A 9 184 Index 27.7 28 N/A N/A N/A N/A 8.1 31.4 Respiratory Related Arousal Count 75 193 N/A N/A N/A N/A 0 75 Index 10.8 11 N/A N/A N/A N/A 0 13 Snoring Analysis Supine Right Left Prone REM NREM Total Snore duration 29.9 min Snores count 1,412 N/A N/A N/A 248 1,164 1,412 Snore mean duration 1.3 Sec Snores index 202 N/A N/A N/A 222.1 198.7 202.4 TST with snoring (%) 7.1% Desaturation Event Summary: Minimum %SpO2 Event Count Mean/Min/Max Duration(sec.) Desaturation Index % Time In Bed > 90 211 33.6 / 11.8 / 76.6 46.4 60.3 86 - 90 14 30.7 / 11.8 / 57.7 6.8 27.1 81 - 85 0 N/A 0.0 6.6 76 - 80 0 N/A 0.0 4.4 71 - 75 0 N/A 0.0 1.5 66 - 70 0 N/A 0.0 0.1 61 - 65 0 N/A 0.0 0.0 56 - 60 0 N/A 0.0 0.0 51 - 55 0 N/A 0.0 0.0 < 50 0 N/A 0.0 0.0 Total REM NREM Awake <50% 0.0 min. 0.0 min. 0.0 min. 0.0 min. 51 - 60% 0.0 min. 0.0 min. 0.0 min. 0.0 min. 61 - 70% 0.5 min. 0.0 min. 0.4 min. 0.2 min. 71 - 80% 26.7 min. 0.3 min. 25.7 min. 0.8 min. 81 - 90% 152.8 min. 19.6 min. 121.6 min. 11.7 min. 91 - 100% 273.1 min. 47.1 min. 203.8 min. 22.1 min. Average 90 92 90 91 Minimum SpO2 68 76 68 69 Desaturation Event Index 28.3 8.1 32.6 24.6 # Desat. Events below 89% 190 7 173 10 Time(%) with Saturation below 89% 21.2 1.5 18.4 1.4 Time(min.) with Saturation below 89% 96.3 6.8 83.4 6.1 Time (mins) REM (mins) NREM (mins) % of TST SpO2 Below 90% 194 7 N187 29.3 SpO2 Below 88% 97 0 0 17 Heart Rate Analysis Min (bpm) Max (bpm) Average (bpm) Awake 57 97 81 NREM 50 94 75 REM 56 92 75 Overall 50 94 75 Supplemental O2 Values Minimum O2 level: None Value Start Time End Time School Examiner Comments Mr. Babb slept in the supine position. Irregular EKG noted. Leg movements noted. No bruxism noted. CPAP was initiated at +4 CMH2O and up-titrated to 8cwp. At this pressure, I switched to BIPAP due to many central apneas. I started BIPAP at 8/4 and increased to 10/6 before adding a rate of 12. I increased to 20/11 in which, a rate of 14 was added due to centrals noted. I continued to increase the pressure up to 24/14 due to hypopneas. A [employer]med [employer] Quattro full face size small mask was used during titration Mr. Babb awoke to use the restroom 1 time during the night. Mr. Babb stated I slept as well as I do when I am in my own bed. Final Settings: 24/14 with rate 14. BIFLEX 3 The final report will be interpreted and signed by a sleep physician. The completed physician report will then be placed in the patient medical record. Therapy Event: Therapy (cm H20) 4 6 7 8 8/4 9/5 10/6 Total Time at Pressure (min.) 22.3 8.7 6.9 27.5 9.1 7.7 13.4 TST at Pressure (min.) 4.3 8.7 6.9 27.5 9.1 7.7 11.9 # Periods 1 1 1 1 1 1 1 Sleep Onset (min.) 18.0 0.0 0.0 0.0 0.0 0.0 0.0 REM Onset (min.) N/A N/A N/A N/A N/A N/A N/A Sleep Efficiency % 19 100 100 100 100 100 88 Wakefulness (%) 80.6 0.0 0.0 0.0 0.0 0.0 11.2 Wakefulness (min.) 18.0 0.0 0.0 0.0 0.0 0.0 1.5 NREM 1 (%) 10.5 19.1 0.0 9.1 10.9 19.5 18.7 NREM 1 (min.) 2.3 1.7 0.0 2.5 1.0 1.5 2.5 NREM 2 (%) 9.0 80.9 100.0 90.9 89.1 80.5 70.1 NREM 2 (min.) 2.0 7.0 6.9 25.0 8.1 6.2 9.4 NREM 3 (%) 0.0 0.0 0.0 0.0 0.0 0.0 0.0 NREM 3 (min.) 0.0 0.0 0.0 0.0 0.0 0.0 0.0 REM (%) 0.0 0.0 0.0 0.0 0.0 0.0 0.0 REM (min.) 0.0 0.0 0.0 0.0 0.0 0.0 0.0 # Arousals 3 10 8 28 11 9 12 Arousal Index 41.5 69.1 69.5 61.1 72.2 70.3 60.6 # Snore 4 1 4 57 5 6 14 Snore Index 55.3 6.9 34.7 124.5 32.8 46.9 70.7 AHI 69.1 82.9 69.5 72.1 72.2 70.3 65.7 AHI Supine 69.1 82.9 69.5 72.1 72.2 70.3 65.7 AHI Non-Supine N/A N/A N/A N/A N/A N/A N/A NREM AHI 69.1 82.9 69.5 72.1 72.2 70.3 65.7 REM AHI N/A N/A N/A N/A N/A N/A N/A RDI 69.1 82.9 69.5 72.1 72.2 70.3 65.7 # Obstructive 2 0 0 0 0 0 0 # Central Ap 0 11 7 32 11 9 13 # Mixed 0 0 1 1 0 0 0 # Hypopneas 3 1 0 0 0 0 0 RERAS 0 0 0 0 0 0 0 Total Respiratory Events 5 12 8 33 11 9 13 Time Below SpO2 89.00% (min.) 1.7 4.7 4.0 15.8 5.9 4.8 6.8 Mean NREM SpO2 (%) 89 88 86 86 84 85 86 Mean REM SpO2 (%) N/A N/A N/A N/A N/A N/A N/A Mean Sleep SpO2 (%) 89 88 86 86 84 85 86 Min NREM SpO2 (%) 80 75 73 71 68 70 70 Min REM SpO2 (%) N/A N/A N/A N/A N/A N/A N/A Position Supine (min.) 4.3 8.7 6.9 27.5 9.1 7.7 11.9 Position Non-supine (min.) 0.0 0.0 0.0 0.0 0.0 0.0 0.0 LM Index Sleep 13.8 6.9 17.4 8.7 6.6 0.0 10.1 LM Index NREM 13.8 6.9 17.4 8.7 6.6 0.0 10.1 LM Index REM N/A N/A N/A N/A N/A N/A N/A Mean Heart Rate (bpm) 82 79 78 76 75 76 74 Min Heart Rate (bpm) 70 64 65 62 62 63 60 Therapy (cm H20) 117 12/8 13/8 14/8 15/8 15/9 16/9 Total Time at Pressure (min.) 11.4 6.3 10.3 17.2 19.1 35.2 8.3 TST at Pressure (min.) 10.9 6.3 10.3 17.2 19.1 35.2 8.3 # Periods 1 1 1 1 1 1 1 Sleep Onset (min.) 0.0 0.0 0.0 0.0 0.0 0.0 0.0 REM Onset (min.) N/A N/A N/A N/A N/A N/A 1.9 Sleep Efficiency % 95 100 100 100 100 100 100 Wakefulness (%) 4.4 0.0 0.0 0.0 0.0 0.0 0.0 Wakefulness (min.) 0.5 0.0 0.0 0.0 0.0 0.0 0.0 NREM 1 (%) 4.4 0.0 0.0 5.8 5.2 0.0 0.0 NREM 1 (min.) 0.5 0.0 0.0 1.0 1.0 0.0 0.0 NREM 2 (%) 91.2 100.0 100.0 50.6 94.8 44.6 22.4 NREM 2 (min.) 10.4 6.3 10.3 8.7 18.1 15.7 1.9 NREM 3 (%) 0.0 0.0 0.0 43.6 0.0 55.4 0.0 NREM 3 (min.) 0.0 0.0 0.0 7.5 0.0 19.5 0.0 REM (%) 0.0 0.0 0.0 0.0 0.0 0.0 77.6 REM (min.) 0.0 0.0 0.0 0.0 0.0 0.0 6.4 # Arousals 11 3 0 2 9 1 0 Arousal Index 60.8 28.5 0.0 7.0 28.3 1.7 0.0 # Snore 24 19 41 130 71 406 46 Snore Index 132.6 180.7 238.1 453.4 222.9 691.6 333.7 AHI 66.3 66.6 63.9 20.9 44.0 3.4 29.0 AHI Supine 66.3 66.6 63.9 20.9 44.0 3.4 29.0 AHI Non-Supine N/A N/A N/A N/A N/A N/A N/A NREM AHI 66.3 66.6 63.9 20.9 44.0 3.4 32.4 REM AHI N/A N/A N/A N/A N/A N/A 28.1 RDI 66.3 66.6 63.9 20.9 44.0 3.4 29.0 # Obstructive 2 0 0 0 5 0 0 # Central Ap 3 1 0 0 0 0 0 # Mixed 0 0 0 0 0 0 0 # Hypopneas 7 6 11 6 9 2 4 RERAS 0 0 0 0 0 0 0 Total Respiratory Events 12 7 11 6 14 2 4 Time Below SpO2 89.00% (min.) 5.8 3.4 4.6 5.5 7.2 5.6 4.3 Mean NREM SpO2 (%) 87 88 89 89 89 89 90 Mean REM SpO2 (%) N/A N/A N/A N/A N/A N/A 88 Mean Sleep SpO2 (%) 87 88 89 89 89 89 88 Min NREM SpO2 (%) 72 76 81 82 77 85 86 Min REM SpO2 (%) N/A N/A N/A N/A N/A N/A 76 Position Supine (min.) 10.9 6.3 10.3 17.2 19.1 35.2 8.3 Position Non-supine (min.) 0.0 0.0 0.0 0.0 0.0 0.0 0.0 LM Index Sleep 5.5 19.0 5.8 3.5 0.0 0.0 7.3 LM Index NREM 5.5 19.0 5.8 3.5 0.0 0.0 0.0 LM Index REM N/A N/A N/A N/A N/A N/A 9.4 Mean Heart Rate (bpm) 75 75 75 77 75 75 74 Min Heart Rate (bpm) 59 59 57 56 56 53 62 Therapy (cm H20) 17 18/9 19/10 04/0112 24/14 Total Time at Pressure (min.) 13.7 9.9 86.1 17.6 9.3 11.4 108.5 TST at Pressure (min.) 13.7 9.9 66.6 16.6 9.3 11.4 107.5 # Periods 1 1 1 1 1 1 1 Sleep Onset (min.) 0.0 0.0 0.0 0.0 0.0 0.0 0.0 REM Onset (min.) 0.0 0.0 0.0 N/A N/A N/A 50.0 Sleep Efficiency % 100 100 77 94 100 100 99 Wakefulness (%) 0.0 0.0 22.6 5.7 0.0 0.0 0.9 Wakefulness (min.) 0.0 0.0 19.5 1.0 0.0 0.0 1.0 NREM 1 (%) 0.0 0.0 4.9 7.3 0.0 0.0 1.8 NREM 1 (min.) 0.0 0.0 4.2 1.3 0.0 0.0 2.0 NREM 2 (%) 0.0 0.0 70.2 87.0 100.0 100.0 41.0 NREM 2 (min.) 0.0 0.0 60.5 15.3 9.3 11.4 44.5 NREM 3 (%) 0.0 0.0 0.0 0.0 0.0 0.0 24.0 NREM 3 (min.) 0.0 0.0 0.0 0.0 0.0 0.0 26.0 REM (%) 100.0 100.0 2.2 0.0 0.0 0.0 32.3 REM (min.) 13.7 9.9 1.9 0.0 0.0 0.0 35.0 # Arousals 0 0 11 6 0 0 2 Arousal Index 0.0 0.0 9.9 21.7 0.0 0.0 1.1 # Snore 98 64 98 48 57 41 178 Snore Index 428.0 387.0 88.2 173.8 368.8 215.0 99.4 AHI 8.7 6.0 14.4 32.6 32.4 42.0 2.8 AHI Supine 8.7 6.0 14.4 32.6 32.4 42.0 2.8 AHI Non-Supine N/A N/A N/A N/A N/A N/A N/A NREM AHI N/A N/A 14.8 32.6 32.4 42.0 1.7 REM AHI 8.7 6.0 0.0 N/A N/A N/A 5.1 RDI 8.7 6.0 14.4 32.6 32.4 42.0 2.8 # Obstructive 0 0 0 0 0 0 0 # Central Ap 0 0 6 0 0 0 0 # Mixed 0 0 0 0 0 0 0 # Hypopneas 2 1 10 9 5 8 5 RERAS 0 0 0 0 0 0 0 Total Respiratory Events 2 1 16 9 5 8 5 Time Below SpO2 89.00% (min.) 2.7 0.3 3.5 3.0 0.0 0.8 0.0 Mean NREM SpO2 (%) N/A N/A 91 92 93 93 93 Mean REM SpO2 (%) 90 91 92 N/A N/A N/A 93 Mean Sleep SpO2 (%) 90 91 91 92 93 93 93 Min NREM SpO2 (%) N/A N/A 80 80 89 88 89 Min REM SpO2 (%) 84 86 90 N/A N/A N/A 91 Position Supine (min.) 13.7 9.9 66.6 16.6 9.3 11.4 107.5 Position Non-supine (min.) 0.0 0.0 0.0 0.0 0.0 0.0 0.0 LM Index Sleep 0.0 0.0 40.5 3.6 0.0 0.0 3.3 LM Index NREM N/A N/A 41.7 3.6 0.0 0.0 0.8 LM Index REM 0.0 0.0 0.0 N/A N/A N/A 8.6 Mean Heart Rate (bpm) 75 76 76 73 74 74 74 Min Heart Rate (bpm) 58 60 55 57 57 56 50
--- NOTE | 2016-10-30 15:09 | POLYSOMNOGRAPH REPORT ---
CLINICAL DATA: A 66-year-old male with BMI of 37.8. He is referred by myself and Dr. Velasco for evaluation of severe obstructive sleep apnea. He had a sleep study done which showed an AHI of 69.8. He also has chronic atrial fibrillation. He does have daytime fatigue and hypersomnolence. His [place] sleepiness score is 9/24. SLEEP ARCHITECTURE: Total recording time was 460.5 minutes. Total sleep period was 442 minutes. Total sleep time was 418.5 minutes divided between 351 minutes of non-REM sleep and 67 minutes of REM sleep. Sleep onset latency was 18 minutes. REM latency was 179 minutes. Sleep efficiency was 91%. Wake after sleep onset was 23.5 minutes. Sleep consisted of stage N1 5%, stage N2 66%, stage N3 13%, and REM 16%. AROUSAL DATA: [id number] arousals were recorded for an index of 18 per hour. Seventy-five were due to respiratory events. PLM DATA: Sixty-nine limb movements during sleep were noted for an index of 9.9 per hour with arousal index of 0.3 per hour. RESPIRATORY DATA: The AHI was 27.7. There were 93 central, 9 obstructive, and 2 mixed apneic episodes. The longest apneic episode was 35.5 seconds. There were 89 hypopneic episodes. The longest duration of hypopnea was 29.2 seconds. OXIMETRY DATA: Nocturnal hypoxemia was seen. Oxygen milan was 68% during non-REM sleep. The mean saturation was 90%. Time below 88% was 97 minutes. EKG: Heart ranged from 50-94 beats per minute. Atrial fibrillation was noted. CIGARETTE MACHINE OPERATOR'S COMMENTS AND TREATMENT SUMMARY: The patient slept supine. He was started on CPAP and was titrated incrementally up to 8 cm of water pressure. Because of central apneic episodes, he was switched to BIPAP and was incrementally titrated up to his final pressure setting of BiPAP 24/14 with a backup rate of 14 using a [employer]wd[employer] Quattro full facemask size small. His final settings were BiPAP 24/14, backup rate of 14, Bi-Flex setting of 3. At that pressure setting, he slept for 107 minutes with an AHI of 2.8. IMPRESSION: Severe sleep apnea and atrial fibrillation with development of treatment onset central apneas consistent with complex sleep apnea. The patient had a difficult CPAP/BiPAP titration study. His final pressure setting of BiPAP 24/14, Bi-Flex 3 with backup rate of 14 was effective but may be difficult to tolerate. RECOMMENDATIONS: The patient could be started at this treatment level. However, consideration should be given to a titration study with ASV to see if lower pressures can be utilized to correct his complex sleep apnea. [facility]
== END | disposition home or self-care (01) ==
LOC: C.NEUR 20:00
PROVIDERS: ATTEND Internal Medicine Pulmonary Disease
DX: G47.30 Sleep apnea, unspecified (principal); I48.91 Unspecified atrial fibrillation

== ENCOUNTER → 2016-11-25 | Outpatient (CLI) | payer BC ==
--- NOTE | 2016-11-26 06:18 | PAP/PSG TECHNICIAN REPORT ---
[facility] Regasification Plant Operator Polysomnogram Report Study name: None Report date: 11/26/2016 Study date: 11/25/2016 Referring Physician: DR. CHIRINOS Name: MARISEL BABB Interpreting Physician: Owen Chirinos M.D. Date of : 1950 Regasification Plant Operator: Brianna Bear [facility]. Sex: Male Age: 66 StudyType: PSG Weight: 227 lbs Height: 66 years, Height 5' 5" Neck Circum: 20 inches BMI: 37.77 Medications: AMOXICILLIN 500 MG, BD ECLIPSE SYRINGE, CYANOCOBALAMIN, DITIAZEM CD 120 MG, FENIFIBRATE 160 MG, LANTUS SOLOSTAR, LYRICA 150 MG, METOPROLOL TARTRATE 50 MG, OMEGA 3, ONE TOUCH ULTRA, ROSUVASTATIN CALCIUM 5 MG, TAMSULOSIN HCL 0.4 MG, TRAMADOL HCL 50 MG, WARFARIN SODIUM 3 MG Patient History 66 yr. old male here tonight for an ASV titration study. Patient had a BiPAP study done on that resulted in a high pressure with central apneas. ESS 11/08. Parameters Monitored NPSG: E1-M2, E2-M1, Fp1-M2, Fp2-M1, F3-M2, F4-M2, F4-M1, C3-M2, C4-M2, C4-M1, O1-M2, O2-M2, O2-M1, T3-M2, T4-M1, P3-M2, P4-M1, CHIN1, CHIN2, HR, EKG, Legs, PFLOW, SNOR, FLOW, CFLOW, Tidal Volume, THOR, ABDO, SpO2, PLTH, CPRESS, ETCO2 Wave, ETCO2, pH Sleep Architecture Sleep Stages Time at Lights Off 10:01:29 PM STAGES Time (min.) TST (%) Time at Lights On 6:02:59 AM Wake 38.0 -- Total Recording Time (TRT) 481.00 min. N1 22.0 5 Total Sleep Period (TSP) 476.0 min. N2 255.5 58 Total Sleep Time (TST) 442.5min. N3 69.5 16 Awake Time 38.5 min. REM 95.5 22 Wake after Sleep Onset 33.5 min. Sleep Efficiency (SE) 92 % Sleep Onset Latency (HAIM) 5.5 min. Number of Stage 1 Shifts None Awakenings 3 Stage Changes 43 Number of REM periods 4 REM 95.5 22 REM Latency 79.0 min. NREM 347.0 78 Body Position Analysis Supine Right Left Side Prone Vertical Total Sleep Time (min.) 480.5 0.0 0.0 0.00 0.0 0.0 Total Sleep Time (%) 100% 0% 0% 0 0% N/A% Total Sleep Time REM (min.) 95.5 0.0 0.0 None 0.0 0.0 Total Sleep Time NREM (min.) 347.0 0.0 0.0 None 0.0 0.0 Intermittent Wake (min.) 38.0 0.0 0.0 None 0.0 0.0 Total Sleep Period (%) 100% None None None None None Arousals Myoclonus (PLM) * Events Count Index Events Count Index Spontaneous 2 0 Events Awake (PLMW) 13 20.5 Respiratory 5 0.8 Events Asleep w/ Arousal (PLMA) 7 0.9 PLM 7 1 Events Asleep w/o Arousal (PLMS) 68 9.2 Snoring 10 1 Total Asleep 75 10.2 Total 24 3 Total 88 11 Respiratory Analysis * CA OA MA CH H RERA Total Count 20 0 0 0 70 0 90 Index 2.7 0.0 0.0 0 9.5 0 12.2 Mean Duration 28.4 0.0 0.0 0.00 30.4 0.0 29.9 Longest Duration 37.5 0.0 0.0 0.00 0.0 0.0 65.7 Respiratory Event Summary Total Supine ~Supine Right Left Prone REM NREM Apneas Count 20 20 N/A N/A N/A N/A 0 20 Index 2.7 3 N/A N/A N/A N/A 0 3 Hypopneas (4% Desat) Count 70 70 N/A N/A N/A N/A 13 57 Index 9.5 9.5 N/A N/A N/A N/A 8.2 9.9 Apneas & All Hypopneas Count 90 90 N/A N/A N/A N/A 13 77 Index 12.2 12 N/A N/A N/A N/A 8.2 13.3 Respiratory Events (Portable Power Tool Repairer+All Hyp+RERA) Count 90 90 N/A N/A N/A N/A 13 77 Index 12.2 12 N/A N/A N/A N/A 8.2 13.3 Respiratory Related Arousal Count 5 90 N/A N/A N/A N/A 0 6 Index 0.8 1 N/A N/A N/A N/A 0 1 Snoring Analysis Supine Right Left Prone REM NREM Total Snore duration 10.0 min Snores count 499 N/A N/A N/A 138 361 499 Snore mean duration 1.2 Sec Snores index 68 N/A N/A N/A 86.7 62.4 67.7 TST with snoring (%) 2.3% Desaturation Event Summary: Minimum %SpO2 Event Count Mean/Min/Max Duration(sec.) Desaturation Index % Time In Bed > 90 115 27.4 / 6.5 / 60.0 70.7 20.6 86 - 90 42 26.4 / 6.3 / 60.0 6.9 77.4 81 - 85 0 N/A 0.0 2.0 76 - 80 0 N/A 0.0 0.1 71 - 75 0 N/A 0.0 0.0 66 - 70 0 N/A 0.0 0.0 61 - 65 0 N/A 0.0 0.0 56 - 60 0 N/A 0.0 0.0 51 - 55 0 N/A 0.0 0.0 < 50 0 N/A 0.0 0.0 Total REM NREM Awake <50% 0.0 min. 0.0 min. 0.0 min. 0.0 min. 51 - 60% 0.0 min. 0.0 min. 0.0 min. 0.0 min. 61 - 70% 0.0 min. 0.0 min. 0.0 min. 0.0 min. 71 - 80% 0.3 min. 0.3 min. 0.0 min. 0.0 min. 81 - 90% 377.0 min. 88.1 min. 282.5 min. 6.5 min. 91 - 100% 97.6 min. 7.2 min. 63.9 min. 26.5 min. Average 89 89 89 92 Minimum SpO2 75 75 80 76 Desaturation Event Index 16.5 12.6 17.3 18.9 # Desat. Events below 89% 117 20 90 7 Time(%) with Saturation below 89% 26.7 8.3 17.9 0.5 Time(min.) with Saturation below 89% 127.0 39.3 85.1 2.6 Time (mins) REM (mins) NREM (mins) % of TST SpO2 Below 90% 119 20 N99 59.4 SpO2 Below 88% 50 0 0 11 Heart Rate Analysis Min (bpm) Max (bpm) Average (bpm) Awake 54 96 76 NREM 52 94 73 REM 52 96 74 Overall 52 96 73 Supplemental O2 Values Minimum O2 level: None Value Start Time End Time Regasification Plant Operator Comments Mr. Babb slept in supine position. A-Fib was noted throughout the night. No PLMs noted. No bruxism noted. ASV was started and ended at: Represented as 1 on table. Max Pressure:25.0 cm H2O Min EPAP:4.0 cm H2O Max EPAP:15.0 cm H2O Min PS:4.0 cm H2O Max PS:20.0 cm H2O Rate:Auto Comfort:BiFlex (2) A webtide F20 air fit touch was used during titration. Mr. Babb awoke to use the restroom once during the night. Mr. Babb stated, that was a normal night. The final report will be interpreted and signed by a sleep physician. The completed physician report will then be placed in the patient medical record. Therapy Event: Therapy (cm H20) 1 Total Time at Pressure (min.) 478.3 TST at Pressure (min.) 442.5 # Periods 1 Sleep Onset (min.) 3.3 REM Onset (min.) 82.3 Sleep Efficiency % 92 Wakefulness (%) 7.5 Wakefulness (min.) 35.8 NREM 1 (%) 4.6 NREM 1 (min.) 22.0 NREM 2 (%) 53.4 NREM 2 (min.) 255.5 NREM 3 (%) 14.5 NREM 3 (min.) 69.5 REM (%) 20.0 REM (min.) 95.5 # Arousals 24 Arousal Index 3.3 # Snore 499 Snore Index 67.7 AHI 12.2 AHI Supine 12.2 AHI Non-Supine N/A NREM AHI 13.3 REM AHI 8.2 RDI 12.2 # Obstructive 0 # Central Ap 20 # Mixed 0 # Hypopneas 70 RERAS 0 Total Respiratory Events 90 Time Below SpO2 89.00% (min.) 124.4 Mean NREM SpO2 (%) 89 Mean REM SpO2 (%) 89 Mean Sleep SpO2 (%) 89 Min NREM SpO2 (%) 80 Min REM SpO2 (%) 75 Position Supine (min.) 442.5 Position Non-supine (min.) 0.0 LM Index Sleep 10.2 LM Index NREM 10.9 LM Index REM 7.5 Mean Heart Rate (bpm) 73 Min Heart Rate (bpm) 52
--- NOTE | 2016-11-26 20:10 | POLYSOMNOGRAPH REPORT ---
CLINICAL DATA: A 66-year-old male with BMI of 37.8 referred by myself and Dr Velasco for an ASV titration. He has obstructive sleep apnea. He had a CPAP/BiPAP study performed which showed complex sleep apnea with the development of treatment onset central sleep apnea and requirement of high pressures of BiPAP. SLEEP ARCHITECTURE: Total sleep period was 476 minutes. Total sleep time was 442.5 minutes divided between 347 minutes of non-REM sleep and 95.5 minutes of REM sleep. Sleep onset latency was 5.5 minutes. REM latency was 79 minutes. Sleep efficiency was 92%. Wake after sleep onset was 33.5 minutes. Sleep consisted of stage N1 5%, stage N2 58%, stage N3 16%, and REM 22%. AROUSAL DATA: Twenty two arousals were recorded for an index of 3 per hour. PERIODIC LIMB MOVEMENTS DATA: Seventy five limb movements during sleep were noted for an index of 10.2 per hour with arousal index of 0.9 per hour. RESPIRATORY DATA: The AHI was 12.2. There were 20 central apneic episodes. The longest duration of apnea was 37.5 seconds. There were 70 hypopneic episodes. The mean duration of hypopnea was 30.4 seconds. OXIMETRY DATA: Nocturnal hypoxemia was seen. Oxygen milan was 75% during REM. The mean saturation was 89%. Time below 88% was 50 minutes. ELECTROCARDIOGRAM: Heart rates ranged from 52-96 beats per minute. Atrial fibrillation was noted throughout the night. 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 He was started on ASV at the following settings - minimum EPAP 4, maximum EPAP 15, minimum pressure support 4, maximum pressure support 20, maximum pressure 25, rate auto, Bi-Flex setting 2, using a ResMed F20 AirFit touch mask. On this pressure setting, the patient slept for 442.5 minutes with an AHI of 12. By the end of the evening, all of his central apneic episodes had resolved and he was left with a few residual hypopneic episodes. IMPRESSION: Complex sleep apnea corrected with adaptive servo ventilation at the above-noted settings. RECOMMENDATIONS: The patient will be started on ASV and seen back in follow up with documentation of efficacy and compliance. [facility]
== END | disposition home or self-care (01) ==
LOC: C.NEUR 20:00
PROVIDERS: ATTEND Internal Medicine Pulmonary Disease
DX: I48.0 Paroxysmal atrial fibrillation (principal); G47.31 Primary central sleep apnea

== ENCOUNTER → 2017-01-27 | Outpatient (CLI) | payer BC ==
[2017-01-27 15:29] LABS: BASO % 0.2 %; BASO ABS # 0.02 K/uL (0-0.2); COMPLETE YES; EOS % 1.9 %; IG% 0.2 %; LYMPH ABS # 1.81 K/uL (1.2-3.4); MEAN CELL VOLUME 93.3 fL (80-100); MEAN CORPUSCULAR HEMOGLOBIN 31.2 pg (25-34); MEAN CORPUSCULAR HGB CONC 33.5 g/dl (32-36); MEAN PLATELET VOLUME 10.7 fL (7.4-10.4); MONO % 7.3 %; NEUT % 70.4 %; PLATELET COUNT 274 K/uL (130-400); RED BLOOD COUNT 4.61 M/uL (4.7-6.1); WHITE BLOOD COUNT 9.03 K/uL (4.8-10.8)
[2017-01-27 16:02] LABS: BLOOD UREA NITROGEN 30 mg/dl (7-18); BUN/CREATININE RATIO 14.2 (10-20); CALCIUM 9.3 mg/dl (8.5-10.1); CARBON DIOXIDE 31 mmol/L (21-32); CHLORIDE 105 mmol/L (98-107); CREATININE 2.12 mg/dl (0.60-1.40); GLUCOSE 98 mg/dl (70-99); POTASSIUM 4.2 mmol/L (3.5-5.1); SODIUM 139 mmol/L (136-145)
[2017-01-27 16:06] LABS: ALB/GLOB RATIO 1.1 (0.9-2); ALKALINE PHOSPHATASE 64 U/L (45-117); ALT/SGPT 20 U/L (12-78); AST/SGOT 15 U/L (15-37); PHOSPHORUS 2.9 mg/dl (2.5-4.9)
[2017-01-27 17:16] LABS: URINE APPEARANCE CLOUDY (CLEAR); URINE BILIRUBIN NEG (NEG); URINE EPITHELIAL CELL AUTO 0-5 /lpf (0-5); URINE NITRITE NEG (NEG); UROBILINOGEN NEG (NEG)
[2017-01-27 17:17] LABS: MANUAL MICROSCOPIC REQUIRED? NO; REVIEW REQ? NO; URINE COLOR AMBER
[2017-01-28 07:10] LABS: ESTIMATED AVERAGE GLUCOSE 126 mg/dl; HA1C FLAG Normal (Normal)
== END | disposition home or self-care (01) ==
LOC: C.LAB1850 14:51
PROVIDERS: ATTEND Internal Medicine
DX: N18.3 Chronic kidney disease, stage 3 (moderate) (principal); E53.8 Deficiency of other specified B group vitamins; E11.22 Type 2 diabetes mellitus with diabetic chronic kidney disease

== ENCOUNTER → 2017-01-28 | Outpatient (CLI) | payer BC, OTHER ==
--- NOTE | 2017-01-28 17:44 | DIAGNOSTIC IMAGING REPORT ---
L-SPINE MIN 4 VIEWS ROUTINE HISTORY: 66 years-old Male M54.5 Lumbar pain subacute pain of the lumbar spine COMPARISON: CT abdomen and pelvis 05/13/2016 TECHNIQUE: 5 views of the lumbar spine FINDINGS: 5 lumbar type vertebral segments are present. Mild levoscoliosis. Severe intervertebral disc space narrowing at 2-L3 and L4-L5 with moderate intervertebral disc space narrowing at 3-L4 and L4-L5. Moderate multilevel facet arthrosis and endplate spurring. No definite spondylolysis or spondylolisthesis. No acute fracture or subluxation. Atherosclerosis of the aorta. Moderate degenerative changes of the hips. Probable phleboliths of the left hemipelvis. IMPRESSION: 1. No acute fracture or subluxation. 2. Mild levoscoliosis with multilevel intervertebral disc space narrowing, endplate spurring and facet arthrosis as above. The above report was generated using voice recognition software. It may contain grammatical, syntax or spelling errors. Electronically signed by: Aaron Greenberg M.D. 01/28/2017 5:43 PM Dictated Date/Time: 01/28/2017 5:40 PM
== END | disposition home or self-care (01) ==
LOC: C.RAD 17:07
PROVIDERS: ATTEND Nurse Practitioner Adult Health
DX: M54.5 Low back pain (principal)

== ENCOUNTER → 2017-02-11 | Outpatient (CLI) | payer BC, OTHER ==
--- NOTE | 2017-02-11 09:17 | DIAGNOSTIC IMAGING REPORT ---
CHEST 2 VIEWS ROUTINE CLINICAL HISTORY: SOBOE dyspnea COMPARISON STUDY: 08/16/2016 FINDINGS: Moderate stable cardiomegaly. Diaphragms are smooth. Lungs are considered generally clear. Mild prominence of pulmonary vasculature. IMPRESSION: Moderate cardiomegaly considered stable from the prior exam. Prominent pulmonary vasculature also similar compared to the prior study. The above report was generated using voice recognition software. It may contain grammatical, syntax or spelling errors. Electronically signed by: Flash Milian M.D. 02/11/2017 9:16 AM Dictated Date/Time: 02/11/2017 9:15 AM
== END | disposition home or self-care (01) ==
LOC: C.RAD1850 09:05
PROVIDERS: ATTEND Nurse Practitioner Adult Health
DX: R06.02 Shortness of breath (principal)

== ENCOUNTER → 2017-02-23 | Outpatient (CLI) | payer OTHER ==
--- NOTE | 2017-02-23 14:47 | DIAGNOSTIC IMAGING REPORT ---
LUMBAR SPINE MRI HISTORY: Low back pain. Right flank pain. ABNORMAL X-RAY OF SPINE TECHNIQUE: Multiplanar multisequence MRI of the lumbar spine was performed without the use of contrast. COMPARISON: Lumbar spine 01/28/2017. FINDINGS: For the purpose of the report the L5-S1 disc space will be located on axial image 23 of 25. No fractures of dictation within the lumbar spine. Mild endplate degenerative changes seen at L2-L3. There is mild disc space narrowing at L1-L2, L3-L4, L4-5. Moderate to space narrowing at L5-S1. Moderate to severe disc space narrowing at L2-L3. The conus terminates at the L1-L2 disc space level. Mild facet degenerative changes at L5-S1. Intimal flap within the mid to distal abdominal aorta which extends into the right common iliac artery consistent with an aortic dissection. The abdominal aorta measures up to 2.3 cm in diameter. No evidence for retroperitoneal hematoma. This has the identical configuration to a 05/13/[address] is therefore likely chronic. Partially visualized 3.6 cm cyst within the left kidney. Stable 1.4 cm stone within the left kidney. L1-L2: No significant central canal or neural foraminal narrowing. Tiny broad-based posterior disc bulge. L2-L3: Broad-based posterior disc bulge with a right paracentral focal disc protrusion which measures 8 x 5 mm this results in moderate right-sided central canal narrowing with compression of the transiting right L3 nerve root. There is also mild bilateral neural foraminal narrowing. L3-L4: Small broad-based posterior disc bulge without significant central canal narrowing. There is mild right neural foraminal narrowing. L4-L5: Small broad-based posterior disc bulge without significant central canal or neural foraminal narrowing. L5-S1: Small broad-based posterior disc bulge without significant central canal narrowing. There is severe left neural foraminal narrowing due to the disc bulge and facet hypertrophy. IMPRESSION: 1. Broad-based posterior disc bulge with a right paracentral focal disc protrusion at L2-L3 which compresses the transiting right L3 nerve root. 2. Severe left-sided neural foraminal narrowing at L5-S1. 3. Additional degenerative changes as described above. 4. There is a dissection involving the mid to distal abdominal aorta and extending into the right common iliac artery. This was likely present on a 05/13/[address] and is therefore considered to be chronic. No retroperitoneal hematoma identified. 5. Left-sided nephrolithiasis. 6. These findings were called to the patient's ordering PICKLE SORTER, Rosa Gomes, at 2:45 PM on 02/23/2017. Electronically signed by: Tuan Knox M.D. 02/23/2017 2:57 PM Dictated Date/Time: 02/23/2017 2:14 PM
== END | disposition home or self-care (01) ==
LOC: C.MRIBC 12:43
PROVIDERS: ATTEND Nurse Practitioner Adult Health
DX: M51.16 Intervertebral disc disorders with radiculopathy, lumbar region (principal); M51.26 Other intervertebral disc displacement, lumbar region; M48.07 Spinal stenosis, lumbosacral region; I71.02 Dissection of abdominal aorta; I77.72 Dissection of iliac artery; N20.0 Calculus of kidney

== ENCOUNTER → 2017-02-25 | Outpatient (CLI) | payer OTHER ==
[~2017-02-25] MED LIST changes: +OPTIRAY 320 IV PRN
--- NOTE | 2017-02-25 10:13 | DIAGNOSTIC IMAGING REPORT ---
CHEST CTA for AORTIC DISSECTION CT DOSE: 3589.89 mGy.cm HISTORY: Abdominal aortic dissection. Evaluate aorta. TECHNIQUE: Multiaxial CT images of the chest were performed both before and after the intravenous administration of contrast to evaluate the aorta. Maximal intensity projection images were also obtained. A dose lowering technique was utilized adhering to the principles of ALARA. COMPARISON STUDY: Lumbar spine MRI 02/23/2017. Chest CTA 08/14/2012. FINDINGS: Normal caliber thoracic aorta with no evidence for dissection. Small focus of mild calcified plaque within the distal descending thoracic aorta. The heart is enlarged. Mitral valve prosthesis. Mild calcified plaque within the left coronary artery. The main pulmonary arteries are patent. No pleural or pericardial effusions. Scattered subcentimeter mediastinal lymph nodes do not meet CT criteria for pathologic involvement. There is a 3.4 cm hypodense lesion within the splenic dome. This favors a cyst. No suspicious lytic or blastic osseous lesions. No pneumothorax. The central airways are patent. Central bronchial wall thickening is again noted. Mild diffuse interstitial thickening. This is likely chronic. This is similar to the prior study. Linear scarlike density within the right middle lobe anteriorly and a small focal area of herniated lung within the right middle lobe. This is unchanged and may be due to old postoperative change. Predominantly linear small focal density within the left upper lobe anteriorly on image 83 of 304. This also favors an area of scarring. IMPRESSION: 1. Normal caliber thoracic aorta with no evidence for dissection. 2. Mild interstitial thickening which is likely chronic. This is similar to the prior study. 3. There is a new predominantly linear small density within the left upper lobe anteriorly. This favors an area of scarring. No change in the scarlike densities within the right middle lobe. 4. Cardiomegaly, unchanged. Electronically signed by: Tuan Knox M.D. 02/25/2017 10:12 AM Dictated Date/Time: 02/25/2017 10:00 AM
--- NOTE | 2017-02-25 10:43 | DIAGNOSTIC IMAGING REPORT ---
CT ANGIOGRAM OF THE ABDOMEN AND PELVIS WITH BILATERAL LOWER EXTREMITY RUNOFF CLINICAL HISTORY: Aortic dissection. COMPARISON STUDY: Abdominal CT dated 05/13/2016. MRI of the lumbar spine dated 02/23/2017. TECHNIQUE: Following the IV administration of 120 cc of Optiray 320, CT angiogram of the abdomen and pelvis with bilateral lower externally runoff was performed from the lung bases to the feet. Images are reviewed in the axial, sagittal, and coronal planes. 3-D MIPS images are created and assessed. IV contrast was administered without complication. A dose lowering technique was utilized adhering to the principles of ALARA. FINDINGS: Lower chest: The heart is enlarged and without pericardial effusion. There is evidence of previous mitral valve surgery. Chronic appearing changes are present at both lung bases. No airspace consolidation is seen typical for pneumonia and there is no pleural effusion. A tiny hiatal hernia is identified. Liver: The contrast-enhanced liver is normal in size, contour, and attenuation. There is no intrahepatic or ductal dilatation Gallbladder: Unremarkable. Spleen: Normal in size and attenuation. A 3.5 cm cystic lesion in the spleen is of doubtful significance. Pancreas: Mildly atrophic and normal in appearance. Adrenal glands: Unremarkable. Kidneys: The contrast enhance kidneys images are cortical atrophy and are without hydronephrosis. The kidneys enhance symmetrically. A 1.8 cm nonobstructing calculus is present in the left upper pole. A 3 mm nonobstructing calculus is seen in the right lower pole. Bilateral renal cysts measure up to 4.7 cm. Abdominal aorta and iliac arteries: There is mild atherosclerotic calcification of the abdominal aorta. The abdominal aorta is widely patent. There is a dissection of the distal abdominal aorta which relates at the level of the inferior mesenteric artery and extends into both common iliac arteries. This extends approximately 1 cm into the left common iliac artery. On the right this extends into the extraconal iliac artery, terminating just above the origin of the common femoral artery. The true and false lumen are patent. No aortic aneurysm is seen. The iliac arteries are widely patent bilaterally. Major branches of the abdominal aorta: The celiac trunk, superior mesenteric, and inferior mesenteric arteries are widely patent end arise from the true lumen. 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 There is a replaced right hepatic artery which arises from the superior mesenteric artery. The splenic artery is patent. There are single bilateral renal arteries. The left renal artery is widely patent. There is high-grade stenosis at the origin of the right renal artery (greater than 75%) as seen on axial image #167. Right lower extremity runoff: The right common femoral artery is widely patent, as are the right profunda femoris and superficial femoral arteries. The popliteal artery is patent. The anterior tibial, posterior tibial, and peroneal arteries are patent at there origins. The distal vessels are not well opacified and there is atherosclerotic calcification. There may be occlusion of the anterior tibial artery. Left lower extremity runoff: The left common femoral artery is widely patent, as are the left profundus femoris and superficial femoral arteries. The popliteal artery is patent. The anterior tibial, posterior tibial, and peroneal arteries are patent at their origins. There is evidence carotid calcification of the calf vessels. The distal vessels are not opacified. Portions of the popliteal artery are obscured by streak artifact from a left knee arthroplasty. Bowel: There is mild colonic diverticulosis. There is mild pericolonic inflammation and trace fluid seen involving the sigmoid colon on image #350 consistent with mild acute diverticulitis. No evidence of abscess is seen. No bowel obstruction is identified. The appendix is well-visualized and normal. Peritoneum: There is no intraperitoneal free air or abdominal ascites. There is a small fat-containing umbilical hernia. Lymphadenopathy: None. Pelvic viscera: The prostate gland is enlarged and heterogeneous, measuring 5.8 cm in transverse diameter. There is median lobe hypertrophy. The bladder is normal as visualized. Bilateral fat-containing inguinal hernias are identified. Skeletal structures: The skeletal structures are osteopenic. There is mild lumbosacral spondylosis. No lytic or blastic bony lesions are seen. A left knee arthroplasty is in place. Lower extremity soft tissues: The lower history soft tissues are normal as imaged. IMPRESSION: 1. There is mild colonic diverticulosis with evidence of mild acute sigmoid diverticulitis. No intraperitoneal free air or abscess is seen. 2. There is a dissection of the distal abdominal aorta which extends into the iliac vessels as detailed above. The aorta and iliac vessels are patent. 3. 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 4. There is high-grade stenosis at the origin of the right renal artery. 5. Bilateral nonobstructing renal calculi. 6. The calf arteries are not opacified and difficult to assess. There may be occlusion of the right anterior tibial artery. 7. Additional findings as above. Electronically signed by: Bharathi Whyte M.D. 02/25/2017 10:42 AM Dictated Date/Time: 02/25/2017 10:01 AM
== END | disposition home or self-care (01) ==
LOC: C.CTS 07:07
PROVIDERS: ATTEND Physician Assistant
DX: I71.02 Dissection of abdominal aorta (principal); I70.1 Atherosclerosis of renal artery; N20.0 Calculus of kidney; R91.8 Other nonspecific abnormal finding of lung field; I51.7 Cardiomegaly

== ENCOUNTER → 2017-02-27 | Outpatient (CLI) | payer OTHER ==
[~2017-02-27] MED LIST changes: -OPTIRAY 320 IV PRN
[2017-02-27 12:50] LABS: BASO % 0.1 %; BASO ABS # 0.01 K/uL (0-0.2); EOS % 3.5 %; EOS ABS # 0.31 K/uL (0-0.5); HEMATOCRIT 42.9 % (42-52); HEMOGLOBIN 14.4 g/dL (14.0-18.0); IG# 0.06 K/uL (0.00-0.02); LYMPH % 16.3 %; LYMPH ABS # 1.46 K/uL (1.2-3.4); MEAN CELL VOLUME 93.1 fL (80-100); MEAN CORPUSCULAR HEMOGLOBIN 31.2 pg (25-34); MEAN CORPUSCULAR HGB CONC 33.6 g/dl (32-36); MEAN PLATELET VOLUME 10.3 fL (7.4-10.4); MONO % 8.7 %; MONO ABS # 0.78 K/uL (0.11-0.59); NEUT % 70.7 %; NEUT ABS # 6.35 K/uL (1.4-6.5); PLATELET COUNT 374 K/uL (130-400); RED CELL DISTRIBUTION WIDTH CV 14.5 % (11.5-14.5); RED CELL DISTRIBUTION WIDTH SD 49.1 fL (36.4-46.3); WHITE BLOOD COUNT 8.97 K/uL (4.8-10.8)
[2017-02-27 12:57] LABS: ALBUMIN 3.6 gm/dl (3.4-5.0); BLOOD UREA NITROGEN 34 mg/dl (7-18); CALCIUM 9.3 mg/dl (8.5-10.1); CARBON DIOXIDE 28 mmol/L (21-32); CREATININE 1.96 mg/dl (0.60-1.40); GLUCOSE 185 mg/dl (70-99); POTASSIUM 4.2 mmol/L (3.5-5.1); SODIUM 141 mmol/L (136-145)
[2017-02-27 12:58] LABS: PHOSPHORUS 2.8 mg/dl (2.5-4.9)
== END | disposition home or self-care (01) ==
LOC: C.LAB1850 10:49
PROVIDERS: ATTEND Nurse Practitioner Adult Health
DX: I10 Essential (primary) hypertension (principal); I48.0 Paroxysmal atrial fibrillation; R06.02 Shortness of breath; N17.9 Acute kidney failure, unspecified

== ENCOUNTER → 2017-04-02 | Outpatient (CLI) | payer OTHER ==
[~2017-04-02] MED LIST changes: -AMOX500C3 PO; +CHOL1000 PO; +FLVHFA110 INH; +FURO-85 PO; -HYDR-5688 PO; +INSU1INJ33 SQ; -METO50TA7 PO; +METO50TA8 PO; +TMB/100 PO; +VITA100C2 PO
--- NOTE | 2017-04-02 15:24 | DIAGNOSTIC IMAGING REPORT ---
CHEST 2 VIEWS ROUTINE CLINICAL HISTORY: 67 years-old Male presenting with R06.02 SOBOE (shortness of breath on exertion)[id number]. TECHNIQUE: PA and lateral views of the chest were obtained. COMPARISON: 02/11/2017. FINDINGS: Cardiac silhouette enlargement with prosthetic mitral valve. Few mediastinal surgical clips noted. Pulmonary vascular prominence. Mildly low lung volumes with hypoventilatory changes. Interval increase in bibasilar opacities, left greater than right. Degenerative changes of the thoracic spine. 2 anchors are noted in the right humeral head. Upper abdomen normal. IMPRESSION: 1. Interval development of bibasilar opacities, left greater than right. In the setting of cardiomegaly and pulmonary vascular prominence, this is probably merely concerning for pulmonary edema. Infection or aspiration are considered less likely. Electronically signed by: Kal Llanes M.D. 04/02/2017 3:22 PM Dictated Date/Time: 04/02/2017 3:21 PM
== END | disposition home or self-care (01) ==
LOC: C.RAD1850 15:11
PROVIDERS: ATTEND Internal Medicine
DX: R06.02 Shortness of breath (principal)

== ENCOUNTER → 2017-04-02 | Day surgery (SDC) | payer OTHER ==
--- NOTE | 2017-04-02 08:43 | Discharge Instructions ---
Discharge Instructions Procedure Procedure Date: Apr 02, 2017. Reason for Visit: AfibNaranjo To DoAnesthesia Notified. Discharge Discharge Date: Apr 02, 2017. Discharge Diagnosis: Dyspnea Instructions Activity Recommendations: resume regular activity Recommended Home Diet: low sodium Allergies: Coded Allergies: No Known Allergies (Unverified , 08/03/16) Follow Up Additional Instructions: Take 2 tabs of lasix daily for the next 3 days (40mg). Repeat BMP next wednesday or wednesday Stop metoprolol Follow-up with Cardiology next week. Follow-up with: Cardiology next week Bebeto Mijares Recommendations: Call your doctor if: * Temperature above 101 degrees * Pain not relieved by pain medicine ordered * There is increased drainage or redness from any incision * You have any unanswered questions or concerns. Your Doctors Instructions noted above were prepared by provider Dg Naranjo. Patient Signature Section: Patient Instructions Signature Page Vito Babb Patient (or Guardian) Signature/Date: I have read and understand the instructions given to me by my caregivers. Caregiver/RN/Doctor Signature/Date: The above-named patient and/or guardian has received patient instructions on this date. + Original Patient Signature Page (only) stays with chart. Please make copy for patient.
== END | disposition home or self-care (01) ==
LOC: C.CATH 06:46
PROVIDERS: ATTEND Internal Medicine Cardiovascular Disease
DX: I48.91 Unspecified atrial fibrillation (principal); R06.00 Dyspnea, unspecified; Z53.09 Procedure and treatment not carried out because of other contraindication; N18.3 Chronic kidney disease, stage 3 (moderate); I71.02 Dissection of abdominal aorta; I12.9 Hypertensive chronic kidney disease with stage 1 through stage 4 chronic kidney disease, or unspecified chronic kidney disease; E78.5 Hyperlipidemia, unspecified; E11.40 Type 2 diabetes mellitus with diabetic neuropathy, unspecified; G47.33 Obstructive sleep apnea (adult) (pediatric); E11.29 Type 2 diabetes mellitus with other diabetic kidney complication; N40.0 Benign prostatic hyperplasia without lower urinary tract symptoms; K57.90 Diverticulosis of intestine, part unspecified, without perforation or abscess without bleeding; E66.9 Obesity, unspecified; G62.9 Polyneuropathy, unspecified; E53.8 Deficiency of other specified B group vitamins; E55.9 Vitamin D deficiency, unspecified; Z79.01 Long term (current) use of anticoagulants; Z83.3 Family history of diabetes mellitus; Z82.49 Family history of ischemic heart disease and other diseases of the circulatory system; Z81.8 Family history of other mental and behavioral disorders

== ENCOUNTER → 2017-04-09 | Outpatient (CLI) | payer OTHER ==
[~2017-04-09] MED LIST changes: -INSDGI SC; -METO50TA8 PO
--- NOTE | 2017-04-09 13:04 | DIAGNOSTIC IMAGING REPORT ---
TWO VIEW CHEST CLINICAL HISTORY: Congestive heart failure. FINDINGS: PA and lateral chest radiographs are compared to study dated 04/02/2017. There is evidence of previous cardiac valve surgery. The heart is enlarged and there is atherosclerotic calcification of the thoracic aorta. There is pulmonary vascular congestion with evidence of mild interstitial edema. There are small pleural effusions with bibasilar consolidation. There is no pneumothorax. The skeletal structures are osteopenic. Degenerative change and scoliosis are noted in the thoracic spine. Postoperative change is seen in the right humeral head. IMPRESSION: 1. Cardiomegaly with evidence of congestive failure and mild interstitial edema. This appears modestly improved from 04/02/2017. 2. Small pleural effusions with bibasilar consolidation. This likely represents atelectasis. Correlate clinically for evidence of superimposed pneumonia. Electronically signed by: Bharathi Whyte M.D. 04/09/2017 1:02 PM Dictated Date/Time: 04/09/2017 1:01 PM
[2017-04-09 14:40] LABS: HEMATOCRIT 47.5 % (42-52); HEMOGLOBIN 16.1 g/dL (14.0-18.0); MEAN CORPUSCULAR HEMOGLOBIN 31.5 pg (25-34); MEAN CORPUSCULAR HGB CONC 33.9 g/dl (32-36); MEAN PLATELET VOLUME 10.7 fL (7.4-10.4); PLATELET COUNT 401 K/uL (130-400); RED CELL DISTRIBUTION WIDTH CV 14.9 % (11.5-14.5)
[2017-04-09 14:48] LABS: INR 2.6 (0.9-1.1)
[2017-04-09 15:00] LABS: BLOOD UREA NITROGEN 37 mg/dl (7-18); CALCIUM 9.8 mg/dl (8.5-10.1); CARBON DIOXIDE 30 mmol/L (21-32); CREATININE 1.93 mg/dl (0.60-1.40); GLUCOSE 51 mg/dl (70-99); POTASSIUM 3.9 mmol/L (3.5-5.1); SODIUM 138 mmol/L (136-145)
== END | disposition home or self-care (01) ==
LOC: C.RAD1850 12:46
PROVIDERS: ATTEND Physician Assistant
DX: I50.9 Heart failure, unspecified (principal); I48.91 Unspecified atrial fibrillation; I51.7 Cardiomegaly; J90 Pleural effusion, not elsewhere classified

== ENCOUNTER → 2017-04-12 | Outpatient (CLI) | payer OTHER ==
[2017-04-12 10:15] LABS: INR 1.4 (0.9-1.1)
== END | disposition home or self-care (01) ==
LOC: C.LAB1850 09:33
PROVIDERS: ATTEND Anesthesiology
DX: Z01.812 Encounter for preprocedural laboratory examination (principal)

== ENCOUNTER → 2017-05-14 | Outpatient (CLI) | payer OTHER ==
[2017-05-14 13:01] LABS: INR 1.9 (0.9-1.1)
== END | disposition home or self-care (01) ==
LOC: C.LAB1850 11:00
PROVIDERS: ATTEND Internal Medicine Interventional Cardiology
DX: N40.0 Benign prostatic hyperplasia without lower urinary tract symptoms (principal); E11.29 Type 2 diabetes mellitus with other diabetic kidney complication; I48.0 Paroxysmal atrial fibrillation

== ENCOUNTER → 2017-05-25 | Outpatient (CLI) | payer OTHER ==
[2017-05-25 09:17] LABS: INR 1.1 (0.9-1.1)
== END | disposition home or self-care (01) ==
LOC: C.LAB 08:53
PROVIDERS: ATTEND Anesthesiology
DX: Z01.812 Encounter for preprocedural laboratory examination (principal)

== ENCOUNTER → 2017-09-23 | Outpatient (CLI) | payer OTHER ==
[2017-09-23 15:44] LABS: HEMATOCRIT 44.6 % (42-52); HEMOGLOBIN 15.2 g/dL (14.0-18.0); MEAN CELL VOLUME 91.4 fL (80-100); MEAN CORPUSCULAR HEMOGLOBIN 31.1 pg (25-34); MEAN CORPUSCULAR HGB CONC 34.1 g/dl (32-36); MEAN PLATELET VOLUME 10.7 fL (7.4-10.4); PLATELET COUNT 316 K/uL (130-400); RED CELL DISTRIBUTION WIDTH CV 14.2 % (11.5-14.5); RED CELL DISTRIBUTION WIDTH SD 47.8 fL (36.4-46.3); WHITE BLOOD COUNT 12.74 K/uL (4.8-10.8)
[2017-09-23 16:15] LABS: CREATININE RANDOM URINE 91.8 mg/dl
[2017-09-23 16:23] LABS: ALBUMIN 4.1 gm/dl (3.4-5.0); ALKALINE PHOSPHATASE 50 U/L (45-117); ALT/SGPT 23 U/L (12-78); AST/SGOT 27 U/L (15-37); BLOOD UREA NITROGEN 30 mg/dl (7-18); CALCIUM 9.3 mg/dl (8.5-10.1); CARBON DIOXIDE 27 mmol/L (21-32); CHOLESTEROL 139 mg/dl (0-200); CREATININE 1.94 mg/dl (0.60-1.40); GLUCOSE 137 mg/dl (70-99); LDL CHOLESTEROL CALCULATED 72 mg/dl; POTASSIUM 3.5 mmol/L (3.5-5.1); SODIUM 138 mmol/L (136-145); TOTAL PROTEIN 7.8 gm/dl (6.4-8.2)
[2017-09-24 05:42] LABS: HEMOGLOBIN A1C 6.1 % (4.5-5.6)
== END | disposition home or self-care (01) ==
LOC: C.LAB1850 14:38
PROVIDERS: ATTEND Internal Medicine
DX: N18.3 Chronic kidney disease, stage 3 (moderate) (principal); E53.8 Deficiency of other specified B group vitamins; E55.9 Vitamin D deficiency, unspecified; I12.9 Hypertensive chronic kidney disease with stage 1 through stage 4 chronic kidney disease, or unspecified chronic kidney disease; R80.9 Proteinuria, unspecified; E11.3299 Type 2 diabetes mellitus with mild nonproliferative diabetic retinopathy without macular edema, unspecified eye

== ENCOUNTER 2018-10-04 20:29 | Inpatient (IN) ==
[2018-10-04] MEDS ORDERED: METOPROLOL TARTRATE 1 MG/ML VIAL IV PRN (21:08)
[2018-10-04] MEDS ORDERED: dilTIAZem HCl 5 MG/ML 5 ML VIAL IV STA ×2 (21:09→22:51)
[2018-10-04 21:35] LABS: Basophils # (auto) 0.02 K/uL (0-0.2); Basophils % (auto) 0.1 %; Eosinophils # (auto) 0.16 K/uL (0-0.5); Eosinophils % (auto) 0.7 %; Hematocrit (blood only) 40.1 % (42-52); Hemoglobin 13.9 g/dL (14.0-18.0); Immature Granulocytes # (auto) 0.08 K/uL (0.00-0.02); Immature Granulocytes % (auto) 0.3 %; Lymphocytes # (auto) 1.33 K/uL (1.2-3.4); Lymphocytes % (auto) 5.7 %; Mean Corpuscular Hemoglobin 30.6 pg (25-34); Mean Corpuscular Hgb Conc 34.7 g/dL (32-36); Mean Corpuscular Volume 88.3 fL (80-100); Mean Platelet Volume 9.7 fL (7.4-10.4); Monocytes # (auto) 2.05 K/uL (0.11-0.59); Monocytes % (auto) 8.7 %; Neutrophils % (auto) 84.5 %; Platelet Count 253 K/uL (130-400); RDW Coefficient of Variation 15.4 % (11.5-14.5); RDW Standard Deviation 49.3 fL (36.4-46.3); Red Blood Count 4.54 M/uL (4.7-6.1); White Blood Count 23.44 K/uL (4.8-10.8)
[2018-10-04 21:47] LABS: INR 1.8 (0.9-1.1); Partial Thromboplastin Ratio 1.2; Partial Thromboplastin Time 31.6 Seconds (21.0-31.0); Prothrombin Time 17.4 Seconds (9.0-12.0)
--- NOTE | 2018-10-04 21:47 | XRay Report ---
XR chest 1V portable CLINICAL HISTORY: Dyspnea COMPARISON STUDY: 09/10/2016 FINDINGS: The heart is enlarged. There is evidence for a valvular replacement. There is elevation of interstitium consistent with mild congestive failure/fluid overload. There are surgical clips visuali zed within the right lower lung zone.[There are postsurgical changes involving the right shoulder. Th ere are no large pleural effusions. IMPRESSION: Mild cardiomegaly. Elevation of the interstitium consistent with mild congestive failure/ fluid overload. Electronically signed by: Sridhar Peterson M.D. 10/04/2018 9:44 PM
[2018-10-04 21:51] LABS: Alanine Aminotransferase 17 U/L (12-78); Albumin Level 3.9 gm/dl (3.4-5.0); Aspartate Aminotransferase 13 U/L (15-37); BUN Creatinine Ratio 13.9 (10-20); Blood Urea Nitrogen 25 mg/dl (7-18); Calcium 9.5 mg/dl (8.5-10.1); Carbon Dioxide 24 mmol/L (21-32); Chloride 102 mmol/L (98-107); Creatinine Clr Calc Pharmacy 46.2 ml/min; Est GFR (African American) 44.4; Est GFR (Non-African American) 38.3; Glucose 202 mg/dl (70-99); Magnesium 1.6 mg/dl (1.8-2.4); Potassium 4.2 mmol/L (3.5-5.1); Sodium 135 mmol/L (136-145)
[2018-10-04 21:56] LABS: Alkaline Phosphatase 59 U/L (45-117); Bilirubin,Total 1.3 mg/dl (0.2-1); Globulin 3.8 gm/dl (2.5-4.0); Total Protein 7.7 gm/dl (6.4-8.2); Troponin I < 0.015 ng/ml (0-0.045)
[2018-10-04] MEDS ORDERED: PIPERACILLIN/TAZOBACTAM 4.5 GM/120 ML BAG IV ONE ×2 (22:05→22:33)
[2018-10-04] MEDS ORDERED: PIPERACILL/TAZOBAC CONSULT ACTIVE PRN ×2 (22:05→22:33)
[2018-10-04] MEDS ORDERED: ACETAMINOPHEN 500 MG TAB PO STA (22:05)
[2018-10-04 22:22] LABS: Appearance Urine Turbid (Clear); Bacteria Urine Automated 4+ (Negative); Bilirubin Urine Negative (Negative); Blood Urine 3+ (Negative); Color Urine Dark Yellow; Epithelial Cell Urine Auto >30 /lpf (0-5); Glucose Urine UA Negative (Negative); Ketones Urine Negative (Negative); Leukocyte Esterase Urine 3+ (Negative); Nitrite Urine Positive (Negative); Protein Urine 2+ (Negative); Specific Gravity Urine 1.019 (1.000-1.030); Urobilinogen Urine Negative (Negative); WBC Urine Automated >30 /hpf (0-5); pH Urine 6.5 (4.5-7.5)
[2018-10-04 22:34] LABS: RBC Urine Automated >30 /hpf (0-4)
[2018-10-04] MEDS ORDERED: SODIUM CHLORIDE 0.9% 250 ML IV ONE (22:34)
--- NOTE | 2018-10-05 00:33 | Emergency Department Note ---
Entered by Isadora Montero acting as a scribe for History of Present Illness General Chief complaint: Shortness of Breath/Dyspnea Stated complaint: SOB, FEVER, CONFUSION, URINARY FREQUENCY Source: patient and family Limitations: no limitations History of Present Illness Provider complaint: Chills Onset (ago): day(s) (today) Location: head and chest Severity: moderate Maximum Pain Intensity: 5 Relieved By: + none Exacerbated By: + none Associated symptoms: + fever/chills, + shortness of breath and + other (+issues remembering things, +incontinence); no chest pain Treatments prior to arrival: none The patient is a 68 year old male who presents to the Emergency Department with complaints of on and off chills that began five hours ago. The patient states he is short of breath and is normally on 3L of oxygen at home. The patient also states he has been having issues remembering things today. The patient has also been experiencing incontinence that started around the same time as the other symptoms. He also has an inhaler that he uses as needed. The patient normally is short of breath on exertion. Home Medications Home Medications Medication Instructions Recorded Confirmed Type insulin aspart (U-100) 100 unit/mL 30 - 35 units SUBCUT TIDM #3 ml 08/12/18 10/04/18 History (3 mL) subcutaneous pen omega-3 fatty acids 1,250 mg 1,250 mg PO DAILY 08/12/18 10/04/18 History capsule fenofibrate nanocrystallized 48 mg 48 mg PO DAILY #90 tab 08/29/18 10/04/18 History tablet warfarin 3 mg tablet 3 mg PO 5XWK #90 tab 08/29/18 10/04/18 History albuterol sulfate HFA 90 1 - 2 puffs INHALATION Q4H PRN gm 09/14/18 10/04/18 History mcg/actuation aerosol inhaler furosemide 20 mg tablet 40 mg PO DAILY tab 09/14/18 10/04/18 History fluticasone furoate 100 1 puffs INH DAILY #30 ea 09/16/18 10/04/18 Rx mcg/actuation blister powder for inhalation rosuvastatin 5 mg tablet 5 mg PO DAILY #30 tab 09/21/18 10/04/18 Rx cholecalciferol (vitamin D3) 1,000 1,000 units PO DAILY tab 10/04/18 10/04/18 History unit (25 mcg) tablet cyanocobalamin (vit B-12) 100 mcg 100 mcg PO DAILY tab 10/04/18 10/04/18 History tablet diltiazem HCl [Cartia XT] 180 mg PO BID 10/04/18 10/04/18 History insulin degludec [Tresiba 60 unit SUBCUT HS 10/04/18 10/04/18 History FlexTouch U-200] pregabalin 150 mg capsule 150 mg PO TID #270 cap 10/04/18 10/04/18 Rx tamsulosin 0.4 mg capsule 0.8 mg PO HS cap 10/04/18 10/04/18 History tramadol 50 mg PO Q8H PRN 10/04/18 10/04/18 History warfarin 4.5 mg PO 2XWK 10/04/18 10/04/18 History Allergies Allergy/AdvReac Type Severity Reaction Status Date / Time No Known Allergies Allergy Unverified 10/04/18 23:33 Past Med/Surg History Medical History AF (atrial fibrillation) (Acute) Abdominal aortic aneurysm dissection (Acute) Abnormal diffusion capacity determined by pulmonary function test (Acute) Atrial flutter (Acute) BPH (benign prostatic hyperplasia) (Acute) Background diabetic retinopathy associated with type 2 diabetes mellitus (Acute) Bilateral renal cysts (Acute) Calculus of ureter (Acute 11/30/12) Coronary atherosclerosis of campo coronary vessel (Acute 11/30/12) Chronic low back pain (Acute) Complex sleep apnea syndrome (Acute) Congestive heart failure (Acute) Diabetes mellitus type 2, controlled (Acute) Diabetic peripheral neuropathy associated with type 2 diabetes mellitus (Acute) Diverticulosis (Acute) Dysesthesia (Acute) Dyslipidemia (Acute) Enlarged prostate without lower urinary tract symptoms (luts) (Acute) Hypertension (Acute) Interstitial lung disease (Acute) Intervertebral disc disease (Acute) Joint pain, knee (Acute) Kidney stone on left side (Acute) Loss of protective sensation of skin of foot (Acute) Lumbar back pain (Acute) Neuropathy in diabetes (Acute 11/30/12) Obesity (Acute) Restrictive lung disease (Acute) SOBOE (shortness of breath on exertion) (Acute) Skin change (Acute) Stage III chronic kidney disease (Acute) 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 (Acute) Type 2 diabetes mellitus, with long-term current use of insulin (Acute) Vitamin B12 deficiency (Acute) Vitamin D deficiency (Acute) Surgical History Status post mitral valve annuloplasty (Acute) History of mitral valve replacement History of shoulder surgery History of surgical removal of pilonidal cyst Family History Mother Diabetes Colon cancer Grandmother Multiple sclerosis Father Coronary heart disease Diabetes Myocardial infarction Grandfather Stroke Sister Diabetes Hypertension Brother Hypertension Diabetes Son Depression Social History Preferred Language: Slovak Communication Ability: Effective Visual Impairment: No Limitations Hearing Ability: Normal Bpm Solution Architect Required: No Beliefs That Will Affect Care: None marital status: Current Living Situation: Spouse and Family current occupational status: retired Other Information That Helps Us Care for You: No Feels Safe at Home: Yes Safety Concerns: Feels Safe At This Time Smoking Status: Never smoker Hx Alcohol Use: No Hx Substance Use: No Childhood Exposure to Second-Hand Smoke: No Dental Care, Regularly: No Physical Activity Frequency: Does not Exercise Seatbelt Use: always Sunscreen Use: No Review of Systems See HPI for pertinent positives & negatives. and A total of 10 systems reviewed and were otherwise negative Physical Exam Vital Signs Vital Signs - 24 hr 10/04/18 20:40 10/04/18 20:44 10/04/18 21:01 Temperature 38.6 C H Temperature Source Oral Sepsis Recent Fever Within 48 Hours Yes Sepsis New/Unexplained Change in Mental Status No Sepsis Action Taken by Nursing No Action Required Pulse Rate 122 H Pulse Rate from SpO2 Sensor Pulse Rhythm Regular Respiratory Rate 18 Respiratory Effort / Characteristics Spontaneous Short of Breath Non-Labored Spontaneous Respiratory Depth Deep Normal Respiratory Pattern Regular Blood Pressure 101/66 Blood Pressure Mean 77 Blood Pressure Position Sitting Pulse Oximetry 92 92 Oxygen Delivery Method Nasal Cannula Nasal Cannula Nasal Cannula Oxygen Flow Rate 3 3 3 10/04/18 21:27 10/04/18 21:30 10/04/18 21:45 Temperature 37.9 C H Temperature Source Oral Sepsis Recent Fever Within 48 Hours Sepsis New/Unexplained Change in Mental Status Sepsis Action Taken by Nursing Pulse Rate 128 H 121 H Pulse Rate from SpO2 Sensor 128 H 123 H Pulse Rhythm Respiratory Rate 29 H 21 Respiratory Effort / Characteristics Respiratory Depth Respiratory Pattern Blood Pressure 120/69 150/75 H Blood Pressure Mean 86 100 Blood Pressure Position Pulse Oximetry 96 97 Oxygen Delivery Method Oxygen Flow Rate 3 3 10/04/18 22:00 10/04/18 22:30 10/04/18 23:00 Temperature 37.8 C H Temperature Source Sepsis Recent Fever Within 48 Hours Sepsis New/Unexplained Change in Mental Status Sepsis Action Taken by Nursing Pulse Rate 116 H 113 H 109 H Pulse Rate from SpO2 Sensor 114 H 114 H 113 H Pulse Rhythm Respiratory Rate 18 24 18 Respiratory Effort / Characteristics Respiratory Depth Respiratory Pattern Blood Pressure 148/77 H 146/91 H 108/75 Blood Pressure Mean 100 109 86 Blood Pressure Position Pulse Oximetry 96 96 97 Oxygen Delivery Method Oxygen Flow Rate 3 10/04/18 23:30 10/05/18 00:00 10/05/18 00:30 Temperature 37.0 C Temperature Source Sepsis Recent Fever Within 48 Hours Sepsis New/Unexplained Change in Mental Status Sepsis Action Taken by Nursing Pulse Rate 113 H 102 H 102 H Pulse Rate from SpO2 Sensor 102 H 101 H 98 H Pulse Rhythm Respiratory Rate 20 18 19 Respiratory Effort / Characteristics Respiratory Depth Respiratory Pattern Blood Pressure 118/70 129/74 111/70 Blood Pressure Mean 86 92 83 Blood Pressure Position Pulse Oximetry 96 96 95 Oxygen Delivery Method Oxygen Flow Rate Vital signs reviewed. General: chronically ill-appearing elderly male, on nasal canula oxygen. HEENT: No scleral icterus, PERRLA, neck supple. Atraumatic. Cardiovascular: Tachycardic and rapid and irregular rhythm, no extra sounds. Pulmonary: Course breathing sounds bilaterally, increased work of breathing. Abdomen: Soft, nontender, nondistended, positive bowel sounds. Musculoskeletal: Atraumatic, no peripheral edema. Neurologic: Patient awake alert and oriented x 3, full strength in all 4 extremities. Cranial nerves 2 through 12 grossly intact. Skin: Warm, dry, no rash Course 2009: Medical records reviewed. The patient was seen in room C12B, a physical examination was performed. 2244: Patient was reevaluated and remains tachycardic. Plan for admission was discussed. Second dose of IV Cardizem was ordered. 2328: I spoke with Dr. Mayorga, [facility] Hospitalist, about the patients case and he agreed to accept the patient for further evaluation. 0: The patient was admitted to the hospitalist service. Administered Medications Diltiazem HCl (Cardizem Cd) 180 mg PO BID FRANKIE Stop: 11/04/18 01:28 Last Admin: 10/05/18 02:05 Dose: 180 mg Documented by: [id number] Magnesium Sulfate/Dextrose (Magnesium Sulfate / D5w) 1 gm in 100 mls @ 100 mls/hr IV Q1H FRANKIE Stop: 10/05/18 02:42 Last Admin: 10/05/18 02:04 Dose: 100 mls/hr Documented by: [id number] Infusion: 10/05/18 02:04 Dose: 0 mls/hr Documented by: [id number] Admin: 10/05/18 00:48 Dose: 100 mls/hr Documented by: [id number] Discontinued Medications Acetaminophen (Tylenol) 1,000 mg PO NOW STA Stop: 10/04/18 22:06 Last Admin: 10/04/18 22:15 Dose: 1,000 mg Documented by: [id number] Diltiazem HCl (Cardizem) 20 mg IV NOW STA Stop: 10/04/18 21:10 Last Admin: 10/04/18 21:26 Dose: 20 mg Documented by: [id number] Cosigned by: [id number] Diltiazem HCl (Cardizem) 20 mg IV NOW STA Stop: 10/04/18 22:52 Last Admin: 10/04/18 22:57 Dose: 20 mg Documented by: [id number] Cosigned by: [id number] Piperacillin Sod/Tazobactam Sod (Zosyn) 4.5 gm in 120 mls @ 240 mls/hr IV NOW ONE Stop: 10/04/18 22:34 Last Infusion: 10/04/18 23:48 Dose: 0 mls/hr Documented by: [id number] Admin: 10/04/18 22:42 Dose: 240 mls/hr Documented by: [id number] Piperacillin Sod/Tazobactam Sod (Zosyn) 4.5 gm in 120 mls @ 240 mls/hr IV NOW ONE Stop: 10/04/18 23:02 Last Admin: 10/04/18 22:47 Dose: Not Given Documented by: [id number] Sodium Chloride (Nss) 250 mls @ 999 mls/hr IV .Q16M ONE Stop: 10/04/18 22:49 Last Infusion: 10/04/18 23:48 Dose: 0 mls/hr Documented by: [id number] Admin: 10/04/18 22:43 Dose: 999 mls/hr Documented by: [id number] Medical Decision Making Differential Diagnosis Differential diagnosis: Etiologies such as infections, reactive airway disease, pneumonia, pneumothorax, COPD, CHF, cardiac ischemia, pulmonary embolism, musculoskeletal, gastrointestinal, as well as others were entertained. Medical Records Attestation: I reviewed the patient's medical records. Home Medications Current Medication List: was personally reviewed by me Laboratory Data Attestation: I reviewed the patient's lab results. Result diagrams: 10/04/18 21:21 10/04/18 21:21 Lab Results 10/04/18 10/04/18 10/04/18 Range/Units 20:56 21:21 21:21 WBC 23.44 H (4.8-10.8) K/uL RBC 4.54 L (4.7-6.1) M/uL Hgb 13.9 L (14.0-18.0) g/dL Hct 40.1 L (42-52) % MCV 88.3 (80-100) fL MCH 30.6 (25-34) pg MCHC 34.7 (32-36) g/dL RDW Std Deviation 49.3 H (36.4-46.3) fL RDW Coeff of Romulo 15.4 H (11.5-14.5) % Plt Count 253 (130-400) K/uL MPV 9.7 (7.4-10.4) fL Immature Gran % (Auto) 0.3 % Neut % (Auto) 84.5 % Lymph % (Auto) 5.7 % [place] % (Auto) 8.7 % Eos % (Auto) 0.7 % Baso % (Auto) 0.1 % Immature Gran # (Auto) 0.08 H (0.00-0.02) K/uL Neut # (Auto) 19.80 H (1.4-6.5) K/uL Lymph # (Auto) 1.33 (1.2-3.4) K/uL [place] # (Auto) 2.05 H (0.11-0.59) K/uL Eos # (Auto) 0.16 (0-0.5) K/uL Baso # (Auto) 0.02 (0-0.2) K/uL PT 17.4 H (9.0-12.0) Seconds INR 1.8 H (0.9-1.1) APTT 31.6 H (21.0-31.0) Seconds PTT Ratio 1.2 Sodium (136-145) mmol/L Potassium (3.5-5.1) mmol/L Chloride (98-107) mmol/L Carbon Dioxide (21-32) mmol/L Anion Gap (3-11) BUN (7-18) mg/dl Creatinine (0.6-1.4) mg/dl Est Cr Clr Drug Dosing ml/min Est GFR ( Amer) Est GFR (Non-Af Amer) BUN/Creatinine Ratio (10-20) Glucose (70-99) mg/dl POC Glucose 222 H (70-99) Lactate (0.4-2.0) mmol/L Calcium (8.5-10.1) mg/dl Magnesium (1.8-2.4) mg/dl Total Bilirubin (0.2-1) mg/dl AST (15-37) U/L ALT (12-78) U/L Alkaline Phosphatase (45-117) U/L Troponin I (0-0.045) ng/ml Total Protein (6.4-8.2) gm/dl Albumin (3.4-5.0) gm/dl Globulin (2.5-4.0) gm/dl Albumin/Globulin Ratio (0.9-2) Urine Color Urine Appearance (Clear) Urine pH (4.5-7.5) Ur Specific [place] (1.000-1.030) Urine Protein (Negative) Urine Glucose (UA) (Negative) Urine Ketones (Negative) Urine Blood (Negative) Urine Nitrite (Negative) Urine Bilirubin (Negative) Urine Urobilinogen (Negative) Ur Leukocyte Esterase (Negative) Urine WBC (Auto) (0-5) /hpf Urine RBC (Auto) (0-4) /hpf U Hyaline Cast (Auto) (0-5) /lpf U Epithel Cells (Auto) (0-5) /lpf Urine Bacteria (Auto) (Negative) Urine Yeast 10/04/18 10/04/18 10/04/18 Range/Units 21:21 21:53 23:01 WBC (4.8-10.8) K/uL RBC (4.7-6.1) M/uL Hgb (14.0-18.0) g/dL Hct (42-52) % MCV (80-100) fL MCH (25-34) pg MCHC (32-36) g/dL RDW Std Deviation (36.4-46.3) fL RDW Coeff of Romulo (11.5-14.5) % Plt Count (130-400) K/uL MPV (7.4-10.4) fL Immature Gran % (Auto) % Neut % (Auto) % Lymph % (Auto) % [place] % (Auto) % Eos % (Auto) % Baso % (Auto) % Immature Gran # (Auto) (0.00-0.02) K/uL Neut # (Auto) (1.4-6.5) K/uL Lymph # (Auto) (1.2-3.4) K/uL [place] # (Auto) (0.11-0.59) K/uL Eos # (Auto) (0-0.5) K/uL Baso # (Auto) (0-0.2) K/uL PT (9.0-12.0) Seconds INR (0.9-1.1) APTT (21.0-31.0) Seconds PTT Ratio Sodium 135 L (136-145) mmol/L Potassium 4.2 (3.5-5.1) mmol/L Chloride 102 (98-107) mmol/L Carbon Dioxide 24 (21-32) mmol/L Anion Gap 9.0 (3-11) BUN 25 H (7-18) mg/dl Creatinine 1.78 H (0.6-1.4) mg/dl Est Cr Clr Drug Dosing 46.2 ml/min Est GFR ( Amer) 44.4 Est GFR (Non-Af Amer) 38.3 BUN/Creatinine Ratio 13.9 (10-20) Glucose 202 H (70-99) mg/dl POC Glucose (70-99) Lactate 1.3 (0.4-2.0) mmol/L Calcium 9.5 (8.5-10.1) mg/dl Magnesium 1.6 L (1.8-2.4) mg/dl Total Bilirubin 1.3 H (0.2-1) mg/dl AST 13 L (15-37) U/L ALT 17 (12-78) U/L Alkaline Phosphatase 59 (45-117) U/L Troponin I < 0.015 (0-0.045) ng/ml Total Protein 7.7 (6.4-8.2) gm/dl Albumin 3.9 (3.4-5.0) gm/dl Globulin 3.8 (2.5-4.0) gm/dl Albumin/Globulin Ratio 1.0 (0.9-2) Urine Color Dark Yellow Urine Appearance Turbid A (Clear) Urine pH 6.5 (4.5-7.5) Ur Specific [place] 1.019 (1.000-1.030) Urine Protein 2+ H (Negative) Urine Glucose (UA) Negative (Negative) Urine Ketones Negative (Negative) Urine Blood 3+ H (Negative) Urine Nitrite Positive A (Negative) Urine Bilirubin Negative (Negative) Urine Urobilinogen Negative (Negative) Ur Leukocyte Esterase 3+ H (Negative) Urine WBC (Auto) >30 H (0-5) /hpf Urine RBC (Auto) >30 H (0-4) /hpf U Hyaline Cast (Auto) 1-5 (0-5) /lpf U Epithel Cells (Auto) >30 H (0-5) /lpf Urine Bacteria (Auto) 4+ H (Negative) Urine Yeast Not Reportable Imaging Data Radiologist's Impression: Radiology results as stated below per my review and radiologist interpretation: XR chest 1V portable CLINICAL HISTORY: Dyspnea COMPARISON STUDY: 09/10/2016 FINDINGS: The heart is enlarged. There is evidence for a valvular replacement. There is elevation of interstitium consistent with mild congestive failure/fluid overload. There are surgical clips visualized within the right lower lung zone.[There are postsurgical changes involving the right shoulder. There are no large pleural effusions. IMPRESSION: Mild cardiomegaly. Elevation of the interstitium consistent with mild congestive failure/fluid overload. Electronically signed by: Sridhar Peterson M.D. 10/04/2018 9:44 PM ECG Data Attestation: I personally reviewed and interpreted this ECG as follows: Indication: SOB/dyspnea Rate (beats per minute): 138 Rhythm: atrial fibrillation Findings: + other (Left post fascicular block, previous inferior infarct); no ST depression, no ST elevation and no acute ischemic change Blood Pressure Blood Pressure Findings: Normal blood pressure MDM Narrative This patient was evaluated and appeared to be in no significant distress. IV access was obtained and laboratory work was drawn. Patient was placed on the security monitor and found to be a rapid atrial fibrillation with a stable blood pressure. Patient is noted to be febrile and given p.o. Tylenol. Patient was given IV Cardizem 20 mg with some improvement in heart rate. Minimal IV hydration was administered given pulmonary congestion on chest x-ray. Blood cultures are pending and lactate is within normal limits. Patient was given IV Zosyn after UA was indicative of infection. Patient did require second dose of IV Cardizem for further rate control. Patient was reevaluated on several occasions and was improving on his home oxygen therapy. Case was discussed with Dr. Ramires of the hospitalist service evaluated the patient for admission and further management. Impression & Plan Atrial fibrillation, rapid, CHF (congestive heart failure), UTI (urinary tract infection), Fever Critical Care Time Critical Care Time: Yes Total Critical Care Time: 45 I have personally spent greater than 45 minutes of critical care time in the direct management of this patient. This includes bedside care, interpretation of diagnostic studies, and testing, discussion with consultants, patient, and family members, and other required patient management activities. This 45 minutes is in excess of all separately billable procedures Discharge Plan Visit Data *Final* Discharge Date/Time: 10/05/18 00:54 Chief Complaint: Shortness of Breath/Dyspnea Stated Complaint: SOB, FEVER, CONFUSION, URINARY FREQUENCY ED Provider: Guillermina Boateng Discharge Problem: Atrial fibrillation, rapid, CHF (congestive heart failure), UTI (urinary tract infection), Fever Patient Disposition: Admitted As Inpatient Discharge Instructions Interventions: ED Discharge Assessment Last Done: 10/05/18 00:54 Discharge Problem: CHF (congestive heart failure) Qualifiers: Heart failure type: unspecified Heart failure chronicity: unspecified Qualified Code(s): I50.9 - Heart failure, unspecified UTI (urinary tract infection) Qualifiers: Urinary tract infection type: site unspecified Hematuria presence: without hematuria Qualified Code(s): N39.0 - Urinary tract infection, site not specified Fever Qualifiers: Fever type: unspecified Qualified Code(s): R50.9 - Fever, unspecified The scribe's documentation has been prepared under my direction and personally reviewed by me in its entirety. I confirm that the note above accurately reflect s all work, treatment, procedures, and medical decision making performed by me.
--- NOTE | 2018-10-05 00:45 | History & Physical Report ---
Date of Service October 05, 2018 Assessment & Plan (1) Atrial fibrillation, rapid: Atrial fibrillation with RVR/CAD/hypertension- Patient received diltiazem 20 mg IV push x2, Lopressor 5 mg IV x1, and normal saline to 250 mg IV per the ED. Continue diltiazem 100 mg p.o. twice daily, giving his evening dose now. We will have Lopressor 5 mg IV every 4 hours as needed heart rate greater than 110 available. Continue warfarin. INR 1.8 Present on Admission?: Yes (2) CHF (congestive heart failure): Continue furosemide 40 mg p.o. daily Present on Admission?: Yes (3) UTI (urinary tract infection): BPH with LUTS/UTI- He was given Zosyn 4.5 g IV in the ED. Placed on ceftriaxone 1 g IV daily. Follow urine culture and sensitivities Continue tamsulosin 0.4 mg at bedtime Present on Admission?: Yes (4) Background diabetic retinopathy associated with type 2 diabetes mellitus: Conversion of Tresiba 60 units subcu at bedtime to Lantus 48 units subcu at bedtime. Place on Lantus 40 units subcu at bedtime starting 10/[address] Accu-Cheks before meals and at bedtime with NovoLog coverage per scale Present on Admission?: Yes (5) Coronary atherosclerosis of [place] coronary vessel: See above Present on Admission?: Yes (6) Dyslipidemia: Continue rosuvastatin 5 mg p.o. daily and fenofibrate 48 mg daily. Present on Admission?: Yes (7) Hypertension: See above Present on Admission?: Yes (8) Enlarged prostate without lower urinary tract symptoms (luts): See above Present on Admission?: Yes (9) Vitamin B12 deficiency: Continue B12 supplement 100 mcg daily Present on Admission?: Yes (10) H/O aortic valve replacement: Noted Present on Admission?: Yes (11) Stage III chronic kidney disease: Follow serial laboratories Present on Admission?: Yes (12) Neuropathy in diabetes: Continue pregabalin 150 mg p.o. 3 times daily Present on Admission?: Yes (13) Type 2 diabetes mellitus, with long-term current use of insulin: As above. Present on Admission?: Yes History of Present Illness Chief Complaint: The patient presents to the emergency department with shortness of breath, fever, confusion and increased urinary frequency Primary Care Provider: Marco Velasco MD The patient is a 68-year-old male with a past medical history including diabetes mellitus, hyperlipidemia, CHF, B12 deficiency, hypertension, BPH, and atrial fibrillation who presents to the emergency department with complaint of urinary frequency and incontinence, fevers and chills, shortness of breath despite his 3 L baseline nasal cannula oxygen, and worsening memory dysfunction that began earlier in the day prior to arrival. He has not had any recent travels or sick exposures. He has been generally fatigued, and is scheduled to undergo cardiac catheterization by Dr. Naranjo later in the day on 10/05, to further assess his chronic shortness of breath, dyspnea on exertion and fatigue. Allergies Allergy/AdvReac Type Severity Reaction Status Date / Time No Known Allergies Allergy Unverified 10/04/18 23:33 Home Medications Home Medications Medication Instructions Recorded Confirmed Type insulin aspart (U-100) 100 unit/mL 30 - 35 units SUBCUT TIDM #3 ml 08/12/18 10/04/18 History (3 mL) subcutaneous pen omega-3 fatty acids 1,250 mg 1,250 mg PO DAILY 08/12/18 10/04/18 History capsule fenofibrate nanocrystallized 48 mg 48 mg PO DAILY #90 tab 08/29/18 10/04/18 History tablet warfarin 3 mg tablet 3 mg PO 5XWK #90 tab 08/29/18 10/04/18 History albuterol sulfate HFA 90 1 - 2 puffs INHALATION Q4H PRN gm 09/14/18 10/04/18 History mcg/actuation aerosol inhaler furosemide 20 mg tablet 40 mg PO DAILY tab 09/14/18 10/04/18 History fluticasone furoate 100 1 puffs INH DAILY #30 ea 09/16/18 10/04/18 Rx mcg/actuation blister powder for inhalation rosuvastatin 5 mg tablet 5 mg PO DAILY #30 tab 09/21/18 10/04/18 Rx cholecalciferol (vitamin D3) 1,000 1,000 units PO DAILY tab 10/04/18 10/04/18 History unit (25 mcg) tablet cyanocobalamin (vit B-12) 100 mcg 100 mcg PO DAILY tab 10/04/18 10/04/18 History tablet diltiazem HCl [Cartia XT] 180 mg PO BID 10/04/18 10/04/18 History insulin degludec [Tresiba 60 unit SUBCUT HS 10/04/18 10/04/18 History FlexTouch U-200] pregabalin 150 mg capsule 150 mg PO TID #270 cap 10/04/18 10/04/18 Rx tamsulosin 0.4 mg capsule 0.8 mg PO HS cap 10/04/18 10/04/18 History tramadol 50 mg PO Q8H PRN 10/04/18 10/04/18 History warfarin 4.5 mg PO 2XWK 10/04/18 10/04/18 History Past Med/Surg History Medical History AF (atrial fibrillation) (Acute) Abdominal aortic aneurysm dissection (Acute) Abnormal diffusion capacity determined by pulmonary function test (Acute) Atrial flutter (Acute) BPH (benign prostatic hyperplasia) (Acute) Background diabetic retinopathy associated with type 2 diabetes mellitus (Acute) Bilateral renal cysts (Acute) Calculus of ureter (Acute 11/30/12) Coronary atherosclerosis of [place] coronary vessel (Acute 11/30/12) Chronic low back pain (Acute) Complex sleep apnea syndrome (Acute) Congestive heart failure (Acute) Diabetes mellitus type 2, controlled (Acute) Diabetic peripheral neuropathy associated with type 2 diabetes mellitus (Acute) Diverticulosis (Acute) Dysesthesia (Acute) Dyslipidemia (Acute) Enlarged prostate without lower urinary tract symptoms (luts) (Acute) Hypertension (Acute) Interstitial lung disease (Acute) Intervertebral disc disease (Acute) Joint pain, knee (Acute) Kidney stone on left side (Acute) Loss of protective sensation of skin of foot (Acute) Lumbar back pain (Acute) Neuropathy in diabetes (Acute 11/30/12) Obesity (Acute) Restrictive lung disease (Acute) SOBOE (shortness of breath on exertion) (Acute) Skin change (Acute) Stage III chronic kidney disease (Acute) 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 (Acute) Type 2 diabetes mellitus, with long-term current use of insulin (Acute) Vitamin B12 deficiency (Acute) Vitamin D deficiency (Acute) Surgical History Status post mitral valve annuloplasty (Acute) History of mitral valve replacement History of shoulder surgery History of surgical removal of pilonidal cyst Family History Mother Diabetes Colon cancer Grandmother Multiple sclerosis Father Coronary heart disease Diabetes Myocardial infarction Grandfather Stroke Sister Diabetes Hypertension Brother Hypertension Diabetes Son Depression Social History Preferred Language: Telugu Communication Ability: Effective Visual Impairment: No Limitations Hearing Ability: Normal 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 Beliefs That Will Affect Care: None marital status: Current Living Situation: Spouse and Family current occupational status: retired Other Information That Helps Us Care for You: No Feels Safe at Home: Yes Safety Concerns: Feels Safe At This Time Smoking Status: Never smoker Hx Alcohol Use: No Hx Substance Use: No Childhood Exposure to Second-Hand Smoke: No Dental Care, Regularly: No Physical Activity Frequency: Does not Exercise Seatbelt Use: always Sunscreen Use: No Review of Systems Review of Systems: The patient denies chest pain, palpitations, cough, lower extremity swelling, sore throat, fevers, chills, sweats, nausea, vomiting, diarrhea , constipation, abdominal pain, pelvic pain, blood in urine or stool, lightheadedness, dizziness, headache, memory loss, loss of consciousness, rash, abnormal bruising or bleeding, imbalance, focal weakness, numbness or tingling in arms or legs, generalized arthralgias or myalgias, back or neck pain, or night sweats. The review of systems is otherwise negative other than for that already noted above, and at least 10 systems have been reviewed. Physical Exam Physical Exam: The patient is awake, alert and oriented 3, well developed and well nourished, normocephalic and atraumatic, lying in bed and in no acute distress. HEENT--PERRL, EOMI, mucous membranes and oropharynx normal. Neck--supple. No JVD. No bruits. Thyroid normal, trachea midline, no adenopathy. Heart--normal S1 and S2. No murmurs, rubs or gallops. Lungs--clear bilaterally, no respiratory distress, no accessory muscle use. Abdomen--normal bowel sounds and soft. Nontender. Nondistended. Morbidly obese, with BMI 40.2 Extremities--no cyanosis or clubbing. No edema. There are good distal pulses b/l. Dermatologic--normal skin turgor, normal color, no abnormal lymph nodes, no rash. Neurologic--cranial nerves II through XII grossly intact. Rheumatologic--normal range of motion. Psychiatric--normal affect. Results & Data Vital Signs (Past 12 Hours) Vital Signs Temp Pulse Resp BP Pulse Ox 10/05/18 00:30 98.6 F 102 H 19 111/70 95 10/05/18 00:00 102 H 18 129/74 96 10/04/18 23:30 113 H 20 118/70 96 10/04/18 23:00 100.0 F H 109 H 18 108/75 97 10/04/18 22:30 113 H 24 146/91 H 96 10/04/18 22:00 116 H 18 148/77 H 96 10/04/18 21:45 100.2 F H 10/04/18 21:30 121 H 21 150/75 H 97 10/04/18 21:27 128 H 29 H 120/69 96 10/04/18 20:44 101.5 F H 122 H 18 101/66 92 10/04/18 20:40 92 Laboratory Results Laboratory Results WBC 22.19 K/uL (4.8-10.8) H 10/05/18 03:15 RBC 4.64 M/uL (4.7-6.1) L 10/05/18 03:15 Hgb 14.1 g/dL (14.0-18.0) 10/05/18 03:15 Hct 40.9 % (42-52) L 10/05/18 03:15 MCV 88.1 fL (80-100) 10/05/18 03:15 MCH 30.4 pg (25-34) 10/05/18 03:15 MCHC 34.5 g/dL (32-36) 10/05/18 03:15 RDW Std Deviation 50.0 fL (36.4-46.3) H 10/05/18 03:15 RDW Coeff of Romulo 15.5 % (11.5-14.5) H 10/05/18 03:15 Plt Count 206 K/uL (130-400) 10/05/18 03:15 MPV 9.3 fL (7.4-10.4) 10/05/18 03:15 Immature Gran % (Auto) 0.3 % 10/05/18 03:15 Neut % (Auto) 87.2 % 10/05/18 03:15 Lymph % (Auto) 6.1 % 10/05/18 03:15 [place] % (Auto) 6.3 % 10/05/18 03:15 Eos % (Auto) 0.0 % 10/05/18 03:15 Baso % (Auto) 0.1 % 10/05/18 03:15 Immature Gran # (Auto) 0.07 K/uL (0.00-0.02) H 10/05/18 03:15 Neut # (Auto) 19.34 K/uL (1.4-6.5) H 10/05/18 03:15 Lymph # (Auto) 1.36 K/uL (1.2-3.4) 10/05/18 03:15 [place] # (Auto) 1.39 K/uL (0.11-0.59) H 10/05/18 03:15 Eos # (Auto) 0.01 K/uL (0-0.5) 10/05/18 03:15 Baso # (Auto) 0.02 K/uL (0-0.2) 10/05/18 03:15 PT 16.1 Seconds (9.0-12.0) H 10/05/18 03:15 INR 1.6 (0.9-1.1) H 10/05/18 03:15 APTT 33.3 Seconds (21.0-31.0) H 10/05/18 03:15 PTT Ratio 1.2 10/05/18 03:15 Sodium 136 mmol/L (136-145) 10/05/18 03:15 Potassium 3.8 mmol/L (3.5-5.1) 10/05/18 03:15 Chloride 99 mmol/L (98-107) 10/05/18 03:15 Carbon Dioxide 27 mmol/L (21-32) 10/05/18 03:15 Anion Gap 10.0 (3-11) 10/05/18 03:15 BUN 25 mg/dl (7-18) H 10/05/18 03:15 Creatinine 1.79 mg/dl (0.6-1.4) H 10/05/18 03:15 Est Cr Clr Drug Dosing 43.6 ml/min 10/05/18 03:15 Est GFR ( Amer) 44.1 10/05/18 03:15 Est GFR (Non-Af Amer) 38.1 10/05/18 03:15 BUN/Creatinine Ratio 14.1 (10-20) 10/05/18 03:15 Glucose 171 mg/dl (70-99) H 10/05/18 03:15 POC Glucose 222 (70-99) H 10/04/18 20:56 Lactate 1.3 mmol/L (0.4-2.0) 10/04/18 23:01 Calcium 9.2 mg/dl (8.5-10.1) 10/05/18 03:15 Magnesium 1.6 mg/dl (1.8-2.4) L 10/04/18 21:21 Total Bilirubin 1.4 mg/dl (0.2-1) H 10/05/18 03:15 AST 11 U/L (15-37) L 10/05/18 03:15 ALT 16 U/L (12-78) 10/05/18 03:15 Alkaline Phosphatase 63 U/L (45-117) 10/05/18 03:15 Troponin I < 0.015 ng/ml (0-0.045) 10/05/18 03:15 Total Protein 7.3 gm/dl (6.4-8.2) 10/05/18 03:15 Albumin 3.5 gm/dl (3.4-5.0) 10/05/18 03:15 Globulin 3.8 gm/dl (2.5-4.0) 10/05/18 03:15 Albumin/Globulin Ratio 0.9 (0.9-2) 10/05/18 03:15 Urine Color Dark Yellow 10/04/18 21:53 Urine Appearance Turbid (Clear) A 10/04/18 21:53 Urine pH 6.5 (4.5-7.5) 10/04/18 21:53 Ur Specific [place] 1.019 (1.000-1.030) 10/04/18 21:53 Urine Protein 2+ (Negative) H 10/04/18 21:53 Urine Glucose (UA) Negative (Negative) 10/04/18 21:53 Urine Ketones Negative (Negative) 10/04/18 21:53 Urine Blood 3+ (Negative) H 10/04/18 21:53 Urine Nitrite Positive (Negative) A 10/04/18 21:53 Urine Bilirubin Negative (Negative) 10/04/18 21:53 Urine Urobilinogen Negative (Negative) 10/04/18 21:53 Ur Leukocyte Esterase 3+ (Negative) H 10/04/18 21:53 Urine WBC (Auto) >30 /hpf (0-5) H 10/04/18 21:53 Urine RBC (Auto) >30 /hpf (0-4) H 10/04/18 21:53 U Hyaline Cast (Auto) 1-5 /lpf (0-5) 10/04/18 21:53 U Epithel Cells (Auto) >30 /lpf (0-5) H 10/04/18 21:53 Urine Bacteria (Auto) 4+ (Negative) H 10/04/18 21:53 Urine Yeast Not Reportable 10/04/18 21:53 Diagnostic Findings [place], [place] [phone] XRay Report Patient: MARISEL ZAVALA Date: 10/04/18 MR#: [id number]: 11 KRISTI RAMIREZ Acct ID:[id number]: Date: 1950[facility] Zip: [place] [address] Age: 68Location: ED Sex: M Room/Bed: Att Phy: Diagnosis: SOB, FEVER, CONFUSION, URINARY FREQUENCY Lu Phy: Marco Velasco, MDService Date: 10/04/18 Fam Phy: Interpreting Phy: Sridhar Peterson MD Admit Phy: Ordering Phy: Guillermina Boateng M.D. cc: ~ XR chest 1V portable CLINICAL HISTORY: Dyspnea COMPARISON STUDY: 09/10/2016 FINDINGS: The heart is enlarged. There is evidence for a valvular replacement. There is elevation of interstitium consistent with mild congestive failure/fluid overload. There are surgical clips visualized within the right lower lung zone.[There are postsurgical changes involving the right shoulder. There are no large pleural effusions. IMPRESSION: Mild cardiomegaly. Elevation of the interstitium consistent with mild congestive failure/fluid overload. Electronically signed by: Sridhar Peterson M.D. 10/04/2018 9:44 PM Dictated: 10/04/182143 Transcribed: 10/04/182143 Code Status & VTE Plan Code Status Full code VTE Prophylaxis Plan VTE Prophylaxis will be ordered: Yes PG Care Time/CCT Total # of Minutes Spent Total Time Spent with Patient: Total time spent is greater than 50% in coordination of care (as documented) at patient's floor/unit and/or counseling patient: (1) CHF (congestive heart failure) Heart failure chronicity: unspecified Heart failure type: unspecified Qualified Code(s): I50.9 - Heart failure, unspecified (2) UTI (urinary tract infection) Hematuria presence: without hematuria Urinary tract infection type: site unspecified Qualified Code(s): N39.0 - Urinary tract infection, site not specified
[2018-10-05] MEDS: MAGNESIUM SULFATE / D5W 1 GM/100 ML BAG IV SCH ×2 (00:48→02:04)
[2018-10-05] MEDS ORDERED: DEXTROSE 50% 50 ML SYRINGE IV PRN (01:29)
[2018-10-05] MEDS ORDERED: GLUCOSE 40% GEL 15 GM TUBE PO PRN (01:29)
[2018-10-05] MEDS ORDERED: GLUCAGON FOR INJ 1 MG VIAL SQ PRN (01:29)
[2018-10-05] MEDS ORDERED: TRAMADOL HCL 50 MG TABLET PO PRN (01:29)
[2018-10-05] MEDS ORDERED: GLUCOSE 10 TABS/TUBE PO PRN (01:29)
[2018-10-05] MEDS ORDERED: CARBOHYDRATES FOR HYPOGLYCEMIA PO PRN (01:29)
[2018-10-05] MEDS: dilTIAZem HCL 180 MG CAPCR PO SCH ×3 (02:05→20:49)
[2018-10-05 03:30] LABS: Basophils # (auto) 0.02 K/uL (0-0.2); Basophils % (auto) 0.1 %; Eosinophils # (auto) 0.01 K/uL (0-0.5); Hematocrit (blood only) 40.9 % (42-52); Hemoglobin 14.1 g/dL (14.0-18.0); Immature Granulocytes # (auto) 0.07 K/uL (0.00-0.02); Immature Granulocytes % (auto) 0.3 %; Lymphocytes # (auto) 1.36 K/uL (1.2-3.4); Lymphocytes % (auto) 6.1 %; Mean Corpuscular Hemoglobin 30.4 pg (25-34); Mean Corpuscular Hgb Conc 34.5 g/dL (32-36); Mean Corpuscular Volume 88.1 fL (80-100); Mean Platelet Volume 9.3 fL (7.4-10.4); Monocytes # (auto) 1.39 K/uL (0.11-0.59); Monocytes % (auto) 6.3 %; Neutrophils # (auto) 19.34 K/uL (1.4-6.5); Neutrophils % (auto) 87.2 %; Platelet Count 206 K/uL (130-400); RDW Coefficient of Variation 15.5 % (11.5-14.5); Red Blood Count 4.64 M/uL (4.7-6.1); White Blood Count 22.19 K/uL (4.8-10.8)
[2018-10-05 03:40] LABS: INR 1.6 (0.9-1.1); Partial Thromboplastin Ratio 1.2; Partial Thromboplastin Time 33.3 Seconds (21.0-31.0); Prothrombin Time 16.1 Seconds (9.0-12.0)
[2018-10-05 03:47] LABS: Alanine Aminotransferase 16 U/L (12-78); Albumin Level 3.5 gm/dl (3.4-5.0); Aspartate Aminotransferase 11 U/L (15-37); BUN Creatinine Ratio 14.1 (10-20); Blood Urea Nitrogen 25 mg/dl (7-18); Calcium 9.2 mg/dl (8.5-10.1); Carbon Dioxide 27 mmol/L (21-32); Chloride 99 mmol/L (98-107); Creatinine Clr Calc Pharmacy 43.6 ml/min; Est GFR (African American) 44.1; Est GFR (Non-African American) 38.1; Glucose 171 mg/dl (70-99); Potassium 3.8 mmol/L (3.5-5.1); Sodium 136 mmol/L (136-145)
[2018-10-05 03:52] LABS: Albumin Globulin Ratio 0.9 (0.9-2); Alkaline Phosphatase 63 U/L (45-117); Bilirubin,Total 1.4 mg/dl (0.2-1); Globulin 3.8 gm/dl (2.5-4.0); Total Protein 7.3 gm/dl (6.4-8.2); Troponin I < 0.015 ng/ml (0-0.045)
[2018-10-05] MEDS ORDERED: PIPERACILLIN/TAZOBACTAM 4.5 GM in DEXTROSE 5% 100 ML IV SCH (04:00)
[2018-10-05 06:12] LABS: Estimated Average Glucose 123 mg/dl; Hemoglobin A1C 5.9 % (4.5-5.6)
[2018-10-05] MEDS: INSULIN ASPART 100 UNITS/ML 3 ML PEN SC SCH ×4 (07:50→20:55)
[2018-10-05] MEDS ORDERED: cefTRIAXone SODIUM 2,000 MG in DEXTROSE 5% 50 ML IV SCH (09:00)
[2018-10-05] MEDS ORDERED: FUROSEMIDE 20 MG TAB PO SCH (09:00)
[2018-10-05] MEDS: FENOFIBRATE NANOCRYSTALLIZED 48 MG TABLET PO SCH (09:58)
[2018-10-05] MEDS: CYANOCOBALAMIN (VITAMIN B-12) 100 MCG TABLET PO SCH (09:58)
[2018-10-05] MEDS: ROSUVASTATIN CALCIUM 5 MG TAB PO SCH (09:59)
[2018-10-05] MEDS: CHOLECALCIFEROL 1,000 UNITS TAB PO SCH (09:59)
[2018-10-05] MEDS: PREGABALIN 150 MG CAP PO SCH ×3 (10:00→20:51)
[2018-10-05] MEDS ORDERED: CEFEPIME 2,000 MG/20 ML VIAL IV STA ×2 (10:55→16:14)
[2018-10-05] MEDS ORDERED: metroNIDAZOLE 500 MG/100 ML BAG IV SCH (11:00)
[2018-10-05] MEDS: FUROSEMIDE 100 MG in DEXTROSE 5% 90 ML IV SCH (12:32)
[2018-10-05] MEDS: ALBUMIN 25% 50 ML IV SCH (14:55)
[2018-10-05] MEDS: WARFARIN SOD 3 MG TAB PO SCH (15:53)
[2018-10-05] MEDS ORDERED: CEFEPIME 2,000 MG in SYRINGE 7.5 ML IV SCH (16:30)
--- NOTE | 2018-10-05 16:30 | Hospitalist Progress Note ---
Date of Service October 05, 2018 Assessment & Plan (1) Atrial fibrillation, rapid: Atrial fibrillation with RVR/CAD/hypertension- Patient received diltiazem 20 mg IV push x2, Lopressor 5 mg IV x1, and normal saline to 250 mg IV per the ED. Continue diltiazem 100 mg p.o. twice daily, giving his evening dose now. We will have Lopressor 5 mg IV every 4 hours as needed heart rate greater than 110 available. Continue warfarin. INR 1.8 (2) CHF (congestive heart failure): Continue furosemide 40 mg p.o. daily (3) UTI (urinary tract infection): BPH with LUTS/UTI- He was given Zosyn 4.5 g IV in the ED. Then ceftriaxone 1 g IV daily and when he spiked fever despite of receiving Ceftriaxone , started Imipenam Cilastatine to cover for ESBL. Ucx positive for gram negative bacillus. Follow urine culture sensitivities Continue tamsulosin 0.4 mg at bedtime (4) Background diabetic retinopathy associated with type 2 diabetes mellitus: Conversion of Tresiba 60 units subcu at bedtime to Lantus 48 units subcu at bedtime. Place on Lantus 40 units subcu at bedtime starting 10/[address] Accu-Cheks before meals and at bedtime with NovoLog coverage per scale (5) Coronary atherosclerosis of [place] coronary vessel: See above (6) Dyslipidemia: Continue rosuvastatin 5 mg p.o. daily and fenofibrate 48 mg daily. (7) Hypertension: See above (8) Enlarged prostate without lower urinary tract symptoms (luts): See above (9) Vitamin B12 deficiency: Continue B12 supplement 100 mcg daily (10) H/O aortic valve replacement: Noted (11) Stage III chronic kidney disease: Follow serial laboratories (12) Neuropathy in diabetes: Continue pregabalin 150 mg p.o. 3 times daily (13) Type 2 diabetes mellitus, with long-term current use of insulin: As above. Subjective Patient seen and examined at the bedside. Patient reports shortness of breath. Started Lasix drip, strict in and out and daily weight low-sodium diet and restricted fluid to 1200 cc. In the afternoon patient became febrile 39.2 Celsius. Check blood cultures lactic acid and procalcitonin. We have to put the Lasix drips drip and hold and metolazone for acute congestive heart failure since patient appears to be septic. Given Tylenol for fever. Discussed with Dr. Fonseca infectious diseases and started Imipenem cilastatin for possible ESBL urinary tract infection. Review of Systems Review of Systems: The patient denies chest pain, palpitations, cough, lower extremity swelling, sore throat, fevers, chills, sweats, nausea, vomiting, diarrhea , constipation, abdominal pain, pelvic pain, blood in urine or stool, lightheadedness, dizziness, headache, memory loss, loss of consciousness, rash, abnormal bruising or bleeding, imbalance, focal weakness, numbness or tingling in arms or legs, generalized arthralgias or myalgias, back or neck pain, or night sweats. The review of systems is otherwise negative other than for that already noted above, and at least 10 systems have been reviewed. Physical Exam Constitutional: WD/WN, vitals as above well developed Eyes: PERRL, conjunctivae normal, anicteric sclerae ENMT: external ear and nose normal, oropharynx normal Respiratory: + respiratory distress (SOB) Auscultation: + crackles and + wheezes Cardiovascular: Rate/Rhythm: + irregularly irregular Gastrointestinal (Abdomen): normal bowel sounds, soft, nontender, no hepatosplenomegaly Musculoskeletal: no cyanosis or clubbing, extremities motor strength 5/5 Skin: no rashes, warm and dry Neurologic: patellar DTR's 2+ bilat, sensation intact Psychiatric: A+Ox3, euthymic affect Results & Data Vital Signs (Past 12 Hours) Vital Signs Temp Pulse Pulse Resp BP Pulse Ox 10/05/18 15:55 39.2 C H 103 H 24 110/60 96 10/05/18 11:26 37.4 C 98 H 22 125/86 97 10/05/18 08:00 92 H 10/05/18 07:27 37.1 C 104 H 20 116/80 97 PG Care Time/CCT Total # of Minutes Spent Total Time Spent with Patient: Total time spent is greater than 50% in coordination of care (as documented) at patient's floor/unit and/or counseling patient: (1) UTI (urinary tract infection) Hematuria presence: without hematuria Urinary tract infection type: site unspecified Qualified Code(s): N39.0 - Urinary tract infection, site not specified (2) CHF (congestive heart failure) Heart failure chronicity: unspecified Heart failure type: unspecified Quali fied Code(s): I50.9 - Heart failure, unspecified
[2018-10-05] MEDS: ACETAMINOPHEN 325 MG TAB PO PRN (16:57)
[2018-10-05] MEDS ORDERED: DOXYCYCLINE HYCLATE 100 MG in DEXTROSE 5% 100 ML IV SCH (17:00)
[2018-10-05] MEDS ORDERED: metOLazone 5 MG TABLET PO SCH (17:00)
[2018-10-05 17:11] LABS: Alanine Aminotransferase 18 U/L (12-78); Albumin Level 3.6 gm/dl (3.4-5.0); Aspartate Aminotransferase 14 U/L (15-37); BUN Creatinine Ratio 13.5 (10-20); Blood Urea Nitrogen 25 mg/dl (7-18); Calcium 9.3 mg/dl (8.5-10.1); Carbon Dioxide 27 mmol/L (21-32); Chloride 99 mmol/L (98-107); Creatinine Clr Calc Pharmacy 41.9 ml/min; Est GFR (African American) 42.1; Est GFR (Non-African American) 36.4; Glucose 197 mg/dl (70-99); Potassium 3.8 mmol/L (3.5-5.1); Sodium 132 mmol/L (136-145)
[2018-10-05 17:26] LABS: Albumin Globulin Ratio 0.9 (0.9-2); Alkaline Phosphatase 65 U/L (45-117); Bilirubin,Total 0.9 mg/dl (0.2-1); Total Protein 7.6 gm/dl (6.4-8.2); Troponin I < 0.015 ng/ml (0-0.045)
[2018-10-05] MEDS ORDERED: IMIPENEM/CILASTATIN SODIUM 300 MG in DEXTROSE 5% 100 ML IV ONE (17:30)
[2018-10-05] MEDS ORDERED: LINEZOLID 600 MG/300 ML D5W IV SCH (18:30)
[2018-10-05] MEDS ORDERED: IPRATROPIUM BROMIDE NEB SOLN 0.02% 2.5 ML VIAL NEB PRN (18:46)
[2018-10-05 18:58] LABS: Base Excess ABG 1.2 mEq/L (-9-1.8); HCO3 ABG 24 mmol/L (19-24); Oxygen Saturation ABG 98.5 % (90-95); PCO2 ABG 31 mmHg (35-46); PO2 ABG 110 mm/Hg (80-95)
[2018-10-05 18:59] LABS: Allen Test POS (Pos)
[2018-10-05] MEDS ORDERED: ACETAMINOPHEN 325 MG TAB PO STA (19:22)
[2018-10-05] MEDS: methylPREDNISolone 40 MG in SYRINGE 0 ML IV SCH (19:26)
[2018-10-05] MEDS: metOLazone 5 MG TABLET PO SCH (19:26)
[2018-10-05] MEDS: LINEZOLID 600 MG/300 ML BAG IV SCH (19:27)
[2018-10-05] MEDS: TAMSULOSIN HCL 0.4 MG CAP PO SCH (20:50)
[2018-10-05] MEDS ORDERED: INSULIN GLARGINE SOLOSTAR 100 UNITS/ML 3 ML PEN SC SCH (21:00)
[2018-10-05] MEDS ORDERED: IPRATROPIUM BROMIDE/ALBUTEROL respimat INH INH SCH (21:00)
[2018-10-05 22:37] LABS: Albumin Level 3.3 gm/dl (3.4-5.0); Creatinine Clr Calc Pharmacy 40.6 ml/min; Est GFR (African American) 40.6; Potassium 3.9 mmol/L (3.5-5.1)
[2018-10-05 22:41] LABS: Albumin Globulin Ratio 0.8 (0.9-2); Bilirubin,Total 0.7 mg/dl (0.2-1); Total Protein 7.3 gm/dl (6.4-8.2)
[2018-10-06] MEDS: IMIPENEM/CILASTATIN SODIUM 300 MG in DEXTROSE 5% 100 ML IV SCH ×4 (01:14→11:57)
[2018-10-06] MEDS: methylPREDNISolone 40 MG in SYRINGE 0 ML IV SCH ×2 (04:25→11:49)
[2018-10-06] MEDS: LINEZOLID 600 MG/300 ML BAG IV SCH (05:33)
[2018-10-06 07:14] LABS: Eosinophils # (auto) 0.23 K/uL (0-0.5); Eosinophils % (auto) 1.3 %; Hematocrit (blood only) 37.4 % (42-52); Hemoglobin 12.7 g/dL (14.0-18.0); Immature Granulocytes # (auto) 0.05 K/uL (0.00-0.02); Immature Granulocytes % (auto) 0.3 %; Lymphocytes # (auto) 0.79 K/uL (1.2-3.4); Lymphocytes % (auto) 4.6 %; Mean Corpuscular Hemoglobin 29.5 pg (25-34); Mean Platelet Volume 10.3 fL (7.4-10.4); Monocytes # (auto) 0.33 K/uL (0.11-0.59); Monocytes % (auto) 1.9 %; Neutrophils # (auto) 15.66 K/uL (1.4-6.5); Neutrophils % (auto) 91.9 %; Platelet Count 150 K/uL (130-400); RDW Coefficient of Variation 14.6 % (11.5-14.5); RDW Standard Deviation 46.8 fL (36.4-46.3); White Blood Count 17.06 K/uL (4.8-10.8)
[2018-10-06 07:22] LABS: INR 1.4 (0.9-1.1); Prothrombin Time 14.2 Seconds (9.0-12.0)
[2018-10-06] MEDS: INSULIN ASPART 100 UNITS/ML 3 ML PEN SC SCH ×4 (07:52→23:43)
[2018-10-06 07:55] LABS: Albumin Globulin Ratio 0.8 (0.9-2); Albumin Level 3.1 gm/dl (3.4-5.0); BUN Creatinine Ratio 16.5 (10-20); Bilirubin,Total 0.6 mg/dl (0.2-1); Calcium 9.2 mg/dl (8.5-10.1); Creatinine Clr Calc Pharmacy 39.2 ml/min; Est GFR (African American) 39.3; Est GFR (Non-African American) 33.9; Globulin 4.1 gm/dl (2.5-4.0); Potassium 3.8 mmol/L (3.5-5.1); Total Protein 7.2 gm/dl (6.4-8.2)
[2018-10-06] MEDS: metOLazone 5 MG TABLET PO SCH (07:57)
[2018-10-06] MEDS: dilTIAZem HCL 180 MG CAPCR PO SCH ×2 (07:57→21:19)
[2018-10-06] MEDS: ROSUVASTATIN CALCIUM 5 MG TAB PO SCH (07:58)
[2018-10-06] MEDS: FENOFIBRATE NANOCRYSTALLIZED 48 MG TABLET PO SCH (07:58)
[2018-10-06] MEDS: CYANOCOBALAMIN (VITAMIN B-12) 100 MCG TABLET PO SCH (07:58)
[2018-10-06] MEDS: CHOLECALCIFEROL 1,000 UNITS TAB PO SCH (07:59)
[2018-10-06] MEDS: PREGABALIN 150 MG CAP PO SCH ×3 (08:05→21:25)
[2018-10-06 08:06] LABS: Beta-Hydroxybutyrate 3.33 mg/dl (0.2-2.81)
--- NOTE | 2018-10-06 09:49 | Hospitalist Progress Note ---
Date of Service October 06, 2018 Assessment & Plan (1) Atrial fibrillation, rapid: Atrial fibrillation with RVR/CAD/hypertension- Patient received diltiazem 20 mg IV push x2, Lopressor 5 mg IV x1, and normal saline to 250 mg IV per the ED. Continue diltiazem 100 mg p.o. twice daily, giving his evening dose now. We will have Lopressor 5 mg IV every 4 hours as needed heart rate greater than 110 available. Continue warfarin. INR 1.8 (2) CHF (congestive heart failure): Continue furosemide drip, metolazone and albumin daily IV to see if the fluid from the third space. I/O -1200 mls Strict in and out Daily weight (3) UTI (urinary tract infection): BPH with LUTS/UTI- He was given Zosyn 4.5 g IV in the ED. Then ceftriaxone 1 g IV daily and when he spiked fever despite of receiving Ceftriaxone , started Imipenam Cilastatine to cover for ESBL. Ucx positive for gram negative bacillus identified as E.Coli pansensitive. consulted and he recommended to continue with ceftriaxone 2 g every 24 hours and stop Linezolid and imipenem cilastatin. Continue tamsulosin 0.4 mg at bedtime (4) Background diabetic retinopathy associated with type 2 diabetes mellitus: Place on Accu-Cheks before meals and at bedtime with NovoLog coverage per scale. Continue management per pharmacy. (5) Coronary atherosclerosis of [place] coronary vessel: See above (6) Dyslipidemia: Continue rosuvastatin 5 mg p.o. daily and fenofibrate 48 mg daily. (7) Hypertension: See above (8) Enlarged prostate without lower urinary tract symptoms (luts): See above (9) Vitamin B12 deficiency: Continue B12 supplement 100 mcg daily (10) H/O aortic valve replacement: Noted (11) Stage III chronic kidney disease: Follow serial laboratories (12) Neuropathy in diabetes: Continue pregabalin 150 mg p.o. 3 times daily (13) Type 2 diabetes mellitus, with long-term current use of insulin: As above. Subjective Patient seen and examined at the bedside. Patient reports shortness of breath.Continue Lasix drip, strict in and out and daily weight low-sodium diet and restricted fluid to 1200 cc. Output last night was 1200. Overnight patient was hypothermic and temperature was 35.4. Bear hugger was placed and this morning patient temperature improved to 36.4. He was his vital signs are more stable now and and his blood pressure is well maintained and pulse is down to 70s. Patient said he feels much better and he does not have any more difficulties breathing. Patient denies fever chills so chest pain shortness of breath abdominal pain frequency urgency melena hematemesis hematochezia or dysuria. Good p.o. intake. No bowel changes. Review of Systems Review of Systems: All systems reviewed & are unremarkable except as noted in HPI & below Physical Exam Constitutional: WD/WN, vitals as above well developed Eyes: PERRL, conjunctivae normal, anicteric sclerae ENMT: external ear and nose normal, oropharynx normal Respiratory: + respiratory distress (Improving) Auscultation: + crackles (Lungs sound improved) and + wheezes (Lung sounds improved) Uses BiPAP at night for obstructive sleep apnea Cardiovascular: Rate/Rhythm: + irregularly irregular Gastrointestinal (Abdomen): normal bowel sounds, soft, nontender, no hepatosplenomegaly Musculoskeletal: no cyanosis or clubbing, extremities motor strength 5/5 Skin: no rashes, warm and dry Neurologic: patellar DTR's 2+ bilat, sensation intact Psychiatric: A+Ox3, euthymic affect Results & Data Vital Signs (Past 12 Hours) Vital Signs Temp Pulse Pulse Resp BP Pulse Ox Pulse Ox 10/06/18 09:01 36 C L 10/06/18 07:33 35.4 C L 87 19 103/59 L 95 10/06/18 06:47 35.5 C L 10/06/18 05:38 35.6 C L 10/06/18 05:28 35.5 C L 10/06/18 05:13 35.4 C L 10/06/18 04:36 35.2 C L 10/06/18 04:26 35.1 C L 70 12 100/71 98 10/06/18 03:10 35.1 C L 10/06/18 02:21 35.0 C L 10/06/18 02:14 35.2 C L 84 108/69 99 10/06/18 01:29 99 10/06/18 00:00 35.5 C L 10/05/18 23:44 93 H 22 114/75 97 10/05/18 22:32 94 H 21 97 10/05/18 22:10 36.6 C PG Care Time/CCT Total # of Minutes Spent Total Time Spent with Patient: Total time spent is greater than 50% in coordination of care (as documented) at patient's floor/unit and/or counseling patient: (1) UTI (urinary tract infection) Hematuria presence: without hematuria Urinary tract infection type: site unspecified Qualified Code(s): N39.0 - Urinary tract infection, site not specified (2) CHF (congestive heart failure) Heart failure chronicity: unspecified Heart failure type: unspecified Qualified Code(s): I50.9 - Heart failure, unspecified
[2018-10-06] MEDS ORDERED: PHARMACY GLYCEMIC MGMT CONSULT PRN (10:33)
[2018-10-06] MEDS ORDERED: INSULIN HUMAN REGULAR PER UNIT 10 UNITS in SYRINGE 9.9 ML IV ONE (11:00)
[2018-10-06] MEDS ORDERED: INSULIN GLARGINE SOLOSTAR 100 UNITS/ML 3 ML PEN SC ONE ×2 (11:30→21:00)
[2018-10-06] MEDS ORDERED: INSULIN ASPART 100 UNITS/ML 3 ML PEN SC ONE (11:30)
--- NOTE | 2018-10-06 11:47 | Infectious Disease Consult ---
Date of Consultation October 06, 2018 Assessment & Plan (1) UTI (urinary tract infection): 68-year-old male admitted with rapid atrial fibrillation with evidence of urinary tract infection with E. coli. Isolate appears fully sensitive, will would treat with ceftriaxone 2 g daily pending final blood culture results. If negative, will likely be able to transition to oral antibiotics. Will follow. (2) Escherichia coli infection: History of Present Illness Reason for Consultation: Ordered Primaxin Attending Physician: Stephon Braga MD History of Present Illness 68-year-old male with history of atrial fibrillation, COPD, hyperlipidemia, diabetes mellitus, status post mitral valve surgery, BPH, restrictive lung disease, who was admitted to the hospital with progressively worsening shortness of breath associated with shaking chills, as well as some dysuria, but no obvious fever reported. Was found to be in rapid atrial fibrillation, but had elevated white blood cell count, and urinalysis consistent with infection. Urine culture growing gram-negative bacilli. Has been started on imipenem, as well as Zyvox for possibility of pneumonia. Patient feeling slightly better this morning. Denies any flank pain. Redness of breath slightly better. Has not had productive cough. Blood cultures are no growth to date, urine culture growing sensitive E. coli. Chest x-ray without obvious pneumonia evident. Procalcitonin mildly elevated at 1.9. No other significant travel or exposure history. Allergies Allergy/AdvReac Type Severity Reaction Status Date / Time No Known Allergies Allergy Unverified 10/04/18 23:33 Home Medications Home Medications Medication Instructions Recorded Confirmed Type insulin aspart (U-100) 100 unit/mL 30 - 35 units SUBCUT TIDM #3 ml 08/12/18 10/05/18 History (3 mL) subcutaneous pen omega-3 fatty acids 1,250 mg 1,250 mg PO DAILY 08/12/18 10/05/18 History capsule fenofibrate nanocrystallized 48 mg 48 mg PO DAILY #90 tab 08/29/18 10/05/18 History tablet warfarin 3 mg tablet 3 mg PO DAILY #90 tab 08/29/18 10/05/18 History albuterol sulfate HFA 90 1 - 2 puffs INHALATION Q4H PRN gm 09/14/18 10/05/18 History mcg/actuation aerosol inhaler furosemide 20 mg tablet 40 mg PO DAILY tab 09/14/18 10/05/18 History fluticasone furoate 100 1 puffs INH DAILY #30 ea 09/16/18 10/05/18 Rx mcg/actuation blister powder for inhalation rosuvastatin 5 mg tablet 5 mg PO DAILY #30 tab 09/21/18 10/05/18 Rx cholecalciferol (vitamin D3) 1,000 1,000 units PO DAILY tab 10/04/18 10/05/18 History unit (25 mcg) tablet cyanocobalamin (vit B-12) 100 mcg 100 mcg PO DAILY tab 10/04/18 10/05/18 History tablet diltiazem HCl [Cartia XT] 180 mg PO BID 10/04/18 10/05/18 History insulin degludec [Tresiba 60 unit SUBCUT HS 10/04/18 10/05/18 History FlexTouch U-200] pregabalin 150 mg capsule 150 mg PO TID #270 cap 10/04/18 10/05/18 Rx tamsulosin 0.4 mg capsule 0.8 mg PO HS cap 10/04/18 10/05/18 History tramadol 50 mg PO Q8H PRN 10/04/18 10/05/18 History Patient History Medical History AF (atrial fibrillation) (Acute) Abdominal aortic aneurysm dissection (Acute) Abnormal diffusion capacity determined by pulmonary function test (Acute) Atrial flutter (Acute) BPH (benign prostatic hyperplasia) (Acute) Background diabetic retinopathy associated with type 2 diabetes mellitus (Acute) Bilateral renal cysts (Acute) Calculus of ureter (Acute 11/30/12) Coronary atherosclerosis of [place] coronary vessel (Acute 11/30/12) Chronic low back pain (Acute) Complex sleep apnea syndrome (Acute) Congestive heart failure (Acute) Diabetes mellitus type 2, controlled (Acute) Diabetic peripheral neuropathy associated with type 2 diabetes mellitus (Acute) Diverticulosis (Acute) Dysesthesia (Acute) Dyslipidemia (Acute) Enlarged prostate without lower urinary tract symptoms (luts) (Acute) Hypertension (Acute) Interstitial lung disease (Acute) Intervertebral disc disease (Acute) Joint pain, knee (Acute) Kidney stone on left side (Acute) Loss of protective sensation of skin of foot (Acute) Lumbar back pain (Acute) Neuropathy in diabetes (Acute 11/30/12) Obesity (Acute) Restrictive lung disease (Acute) SOBOE (shortness of breath on exertion) (Acute) Skin change (Acute) Stage III chronic kidney disease (Acute) 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 (Acute) Type 2 diabetes mellitus, with long-term current use of insulin (Acute) Vitamin B12 deficiency (Acute) Vitamin D deficiency (Acute) Surgical History Status post mitral valve annuloplasty (Acute) History of mitral valve replacement History of shoulder surgery History of surgical removal of pilonidal cyst Family History Mother Diabetes Colon cancer Grandmother Multiple sclerosis Father Coronary heart disease Diabetes Myocardial infarction Grandfather Stroke Sister Diabetes Hypertension Brother Hypertension Diabetes Son Depression Social History Preferred Language: [place] Communication Ability: Effective Visual Impairment: No Limitations Hearing Ability: Normal Radio Communication Coordinator Required: No Beliefs That Will Affect Care: None marital status: Current Living Situation: Spouse and Family current occupational status: retired Feels Safe at Home: Yes Smoking Status: Never smoker Hx Alcohol Use: No Hx Substance Use: No Childhood Exposure to Second-Hand Smoke: No Dental Care, Regularly: No Physical Activity Frequency: Does not Exercise Seatbelt Use: always Sunscreen Use: No Review of Systems Review of Systems: All systems reviewed & are unremarkable except as noted in HPI & below Physical Exam Constitutional: WD/WN, vitals as above comfortable; no acute distress Eyes: PERRL, conjunctivae normal, anicteric sclerae ENMT: external ear and nose normal, oropharynx normal Neck: trachea midline, no thyromegaly neck nontender Respiratory: normal respiratory effort, lungs clear to auscultation normal percussion; does not use accessory muscles Cardiovascular: Rate/Rhythm: regular rate and regular rhythm Heart Sounds: normal S1 and normal S2; no gallop, no murmur and no cardiac rub Vessels: normal peripheral pulses; no JVD Gastrointestinal (Abdomen): normal bowel sounds, soft, nontender, no hepatosplenomegaly Musculoskeletal: no cyanosis or clubbing, extremities motor strength 5/5 Spine: thoracic spine normal to inspection and lumbar spine normal to inspection; no cervical spinal tenderness Skin: no rashes, warm and dry normal turgor; no lesions Neurologic: patellar DTR's 2+ bilat, sensation intact no focal motor deficits Psychiatric: A+Ox3, euthymic affect Orientation: cooperative Lymphatic: no cervical or axillary lymphadenopathy no inguinal lymphadenopathy Results & Data Vital Signs (Past 12 Hours) Vital Signs Temp Pulse Resp BP Pulse Ox Pulse Ox 10/06/18 09:01 36 C L 10/06/18 07:33 35.4 C L 87 19 103/59 L 95 10/06/18 06:47 35.5 C L 10/06/18 05:38 35.6 C L 10/06/18 05:28 35.5 C L 10/06/18 05:13 35.4 C L 10/06/18 04:36 35.2 C L 10/06/18 04:26 35.1 C L 70 12 100/71 98 10/06/18 03:10 35.1 C L 10/06/18 02:21 35.0 C L 10/06/18 02:14 35.2 C L 84 108/69 99 10/06/18 01:29 99 10/06/18 00:00 35.5 C L 10/05/18 23:44 93 H 22 114/75 97 Laboratory Results Short CBC 10/06/18 Range/Units 06:42 WBC 17.06 H (4.8-10.8) K/uL Hgb 12.7 L (14.0-18.0) g/dL Hct 37.4 L (42-52) % Plt Count 150 (130-400) K/uL BMP 10/05/18 10/05/18 10/06/18 16:33 22:12 06:42 Sodium 132 L 135 L 134 L Potassium 3.8 3.9 3.8 Chloride 99 101 100 Carbon Dioxide 27 27 23 BUN 25 H 27 H 33 H Creatinine 1.86 H 1.92 H 1.97 H Glucose 197 H 232 H 389 H* Calcium 9.3 9.0 9.2 Cardiac Enzymes 10/05/18 10/05/18 Range/Units 11:09 16:33 Troponin I < 0.015 < 0.015 (0-0.045) ng/ml Liver Function 10/05/18 10/05/18 10/06/18 Range/Units 16:33 22:12 06:42 Total Bilirubin 0.9 D 0.7 0.6 (0.2-1) mg/dl AST 14 L 13 L 10 L (15-37) U/L ALT 18 17 16 (12-78) U/L Alkaline Phosphatase 65 67 65 (45-117) U/L Albumin 3.6 3.3 L 3.1 L (3.4-5.0) gm/dl Diagnostic Findings Microbiology 10/04/18 21:53 Urine,Clean Catch Urine Culture - Final Escherichia coli 10/04/18 22:19 Blood Aerobic Blood Culture - Preliminary No growth in Aerobic bottle after 24 hours. 10/04/18 22:19 Blood Anaerobic Blood Culture - Preliminary No growth in Anaerobic bottle after 24 hours. 10/04/18 22:25 Blood Aerobic Blood Culture - Preliminary No growth in Aerobic bottle after 24 hours. 10/04/18 22:25 Blood Anaerobic Blood Culture - Preliminary No growth in Anaerobic bottle after 24 hours. XR chest 1V portable CLINICAL HISTORY: Dyspnea COMPARISON STUDY: 09/10/2016 FINDINGS: The heart is enlarged. There is evidence for a valvular replacement. There is elevation of interstitium consistent with mild congestive failure/fluid overload. There are surgical clips visualized within the right lower lung zone.[There are postsurgical changes involving the right shoulder. There are no large pleural effusions. IMPRESSION: Mild cardiomegaly. Elevation of the interstitium consistent with mild congestive failure/fluid overload. Electronically signed by: Sridhar Peterson M.D. 10/04/2018 9:44 PM Dictated: 10/04/182143 Transcribed: 10/04/182143 PG Care Time/CCT Total # of Minutes Spent Total Time Spent with Patient: Total time spent is greater than 50% in coordination of care (as documented) at patient's floor/unit and/or counseling patient: (1) UTI (urinary tract infection) Hematuria presence: without hematuria Urinary tract infection type: site unspecified Qualified Code(s): N39.0 - Urinary tract infection, site not specified
--- NOTE | 2018-10-06 13:11 | Pharmacy Report ---
Glycemic Control Consultation - Date of Service October 06, 2018 - Scope Scope: Glycemic Pharmacist consulted for glycemic control and to write orders per [facility] inpatient glycemic control protocol - Objective Weight: 104.1 kg Accuchecks BSG (last 24hrs): 10/05/18 10/05/18 10/05/18 16:22 16:33 20:01 Glucose 197 H POC Glucose 210 H 217 H 10/05/18 10/06/18 10/06/18 22:12 06:42 07:26 Glucose 232 H 389 H* POC Glucose 433 H* 10/06/18 10/06/18 10/06/18 07:28 10:08 10:09 Glucose POC Glucose 371 H* 471 H* 406 H* 10/06/18 11:31 Glucose POC Glucose 493 H* Laboratory Data (last 24hrs): 10/05/18 10/05/18 10/06/18 16:33 22:12 06:42 Potassium 3.8 3.9 3.8 Carbon Dioxide 27 27 23 Anion Gap 6.0 7.0 10.0 Creatinine 1.86 H 1.92 H 1.97 H Est Cr Clr Drug Dosing 41.9 40.6 39.2 Beta-Hydroxybutyric Acd 3.33 H HbA1c: Hemoglobin A1c 5.9 % (4.5-5.6) H 10/05/18 03:15 - Recent Pertinent Medications Outpatient Anti-diabetic Regimen: * Tresiba 60 units SC HS * Insulin aspart 30-35 units SC TIDM * A1c = 5.9 % on 10/05/18 The patient is currently receiving: * Basal insulin: Lantus 40 units SC HS x1 on 10/05 * Correctional Insulin: Novolog Correction per scale ACHS Goal Range: Low 100 mg/dL - High 150 mg/dL Correction Factor: 25 mg/dL/unit * Prandial insulin: Per carb ratio of 1 unit per 10 grams CHO consumed Risk Factors for Insulin Resistance: * Steroids: methylprednisolone 40 mg IV q8h, discontinued after 1200 dose today and tapering to prednisone 40 mg po daily starting tomorrow AM * Infection: sepsis 2nd UTI +/- PNA on imipenem, linezolid * Diet: T2DM - Assessment & Plan Assessment & Plan: ASSESSMENT: * 68 yo M with T2DM admitted with Afib w RVR, sepsis, and CHF. * Pharmacy consulted for glycemic management on 10/06 for significant hyperglycemia. Etiology of hyperglycemia is likely multifactorial - patient possibly missed his PM dose of basal insulin the day of admission (10/04), and steroids also initiated 10/05 PM 2nd significant SOB (3 doses received thus far). Therefore patient is likely basal deficient with increased physiologic stress from significant infection, Afib with RVR, and steroids * Patient's outpatient regimen provides a minimum of 150 units of insulin per day. HbA1c suggests either excellent control or possible frequent outpatient hypoglycemia. Therefore, despite significant stressors, will adjust regimen per calculator suggestion at a low to moderate stress regimen based on outpatient dose of 150 units. * Spoke w Dr. Braga - may take time to improve BSG's based on possible basal deficiency. OK'd initiation of insulin drip if BSG's remain >300 mg/dL this evening despite significant changes made to regimen this afternoon PLAN FOR INPATIENT GLYCEMIC CONTROL: * Regular insulin 10 units IV bolus x1 @ lunch today * Starting IV insulin infusion per severe stress protocol if BSG > 300 mg/dL at dinner or after * Goal Range 140 - 180 mg/dl * Basal insulin: Lantus 50 units SQ x1 now, then HS based on BSG as follows: * 20 units for BSG less than 140 mg/dL * 30 units for BSG 140-180 mg/dL * 40 units for BSG greater than 180 mg/dL * Bolus insulin * NovoLog per scale ACHS or Q6hrs while NPO * Goal Range: Low 140 mg/dL - High 180 mg/dL * Correction Factor: 10 mg/dL/unit * Nutritional / Prandial insulin per carb ratio of 1 unit per 4 grams CHO consumed * Please note that the plan above was derived based on current level of insulin resistance and hospital stress. These recommendations are appropriate for inpatient admission only. Plan of care upon discharge will need to be reassessed to avoid potential outpatient hypo/hyperglycemia. Thank you.
[2018-10-06] MEDS: ALBUMIN 25% 50 ML IV SCH (15:36)
[2018-10-06] MEDS: WARFARIN SOD 3 MG TAB PO SCH (15:37)
[2018-10-06] MEDS: cefTRIAXone SODIUM 2,000 MG in DEXTROSE 5% 50 ML IV SCH (17:32)
[2018-10-06] MEDS: TAMSULOSIN HCL 0.4 MG CAP PO SCH (21:19)
[2018-10-07] MEDS ORDERED: TRAMADOL HCL 50 MG TABLET PO PRN (01:29)
[2018-10-07] MEDS: INSULIN ASPART 100 UNITS/ML 3 ML PEN SC SCH ×5 (04:16→21:29)
[2018-10-07] MEDS: FUROSEMIDE 100 MG in DEXTROSE 5% 90 ML IV SCH ×2 (05:45→12:07)
[2018-10-07 06:55] LABS: Basophils # (auto) 0.01 K/uL (0-0.2); Basophils % (auto) 0.1 %; Eosinophils # (auto) 0.08 K/uL (0-0.5); Eosinophils % (auto) 0.4 %; Hematocrit (blood only) 36.4 % (42-52); Hemoglobin 12.7 g/dL (14.0-18.0); Immature Granulocytes # (auto) 0.07 K/uL (0.00-0.02); Immature Granulocytes % (auto) 0.4 %; Lymphocytes # (auto) 1.11 K/uL (1.2-3.4); Mean Corpuscular Hemoglobin 29.5 pg (25-34); Mean Corpuscular Hgb Conc 34.9 g/dL (32-36); Mean Corpuscular Volume 84.5 fL (80-100); Mean Platelet Volume 10.3 fL (7.4-10.4); Monocytes % (auto) 4.3 %; Neutrophils % (auto) 88.8 %; Platelet Count 169 K/uL (130-400); RDW Coefficient of Variation 13.9 % (11.5-14.5); RDW Standard Deviation 42.9 fL (36.4-46.3); Red Blood Count 4.31 M/uL (4.7-6.1); White Blood Count 18.47 K/uL (4.8-10.8)
[2018-10-07 07:03] LABS: INR 1.6 (0.9-1.1); Prothrombin Time 15.6 Seconds (9.0-12.0)
[2018-10-07 07:29] LABS: Albumin Globulin Ratio 0.8 (0.9-2); Albumin Level 3.3 gm/dl (3.4-5.0); BUN Creatinine Ratio 24.8 (10-20); Bilirubin,Total 0.3 mg/dl (0.2-1); Calcium 9.5 mg/dl (8.5-10.1); Creatinine Clr Calc Pharmacy 39.2 ml/min; Est GFR (African American) 39.6; Est GFR (Non-African American) 34.1; Globulin 4.3 gm/dl (2.5-4.0); Potassium 3.1 mmol/L (3.5-5.1); Total Protein 7.6 gm/dl (6.4-8.2)
[2018-10-07] MEDS: PREGABALIN 150 MG CAP PO SCH ×3 (08:21→21:37)
[2018-10-07] MEDS: predniSONE 20 MG TAB PO SCH (08:21)
[2018-10-07] MEDS: ROSUVASTATIN CALCIUM 5 MG TAB PO SCH (08:21)
[2018-10-07] MEDS: dilTIAZem HCL 180 MG CAPCR PO SCH ×2 (08:21→21:26)
[2018-10-07] MEDS: metOLazone 5 MG TABLET PO SCH (08:22)
[2018-10-07] MEDS: CYANOCOBALAMIN (VITAMIN B-12) 100 MCG TABLET PO SCH (08:22)
[2018-10-07] MEDS: FENOFIBRATE NANOCRYSTALLIZED 48 MG TABLET PO SCH (08:22)
[2018-10-07] MEDS: CHOLECALCIFEROL 1,000 UNITS TAB PO SCH (08:22)
--- NOTE | 2018-10-07 08:34 | Pharmacy Report ---
Pharmacy Glycemic Short Note 2 - Date of Service October 07, 2018 - Glycemic Short BSG Results (Last 24 hours): 10/06/18 10/06/18 10/06/18 10:08 10:09 11:31 Glucose POC Glucose 471 H* 406 H* 493 H* 10/06/18 10/06/18 10/06/18 16:30 16:33 20:41 Glucose POC Glucose 350 H* 340 H* 310 H* 10/06/18 10/06/18 10/07/18 20:45 23:39 04:13 Glucose POC Glucose 271 H 262 H 206 H 10/07/18 10/07/18 06:12 07:34 Glucose 190 H POC Glucose 211 H OUTPATIENT ANTIDIABETIC REGIMEN: * Tresiba 60 units SC HS * Insulin aspart 30-35 units SC TIDM * A1c = 5.9 % on 10/05/18 ASSESSMENT: 10/07/18 * Patient with steroid induced hyperglycemia, required 180 units of insulin yesterday, with 0 blood sugars at goal. No insulin drip initation d/t blood sugars remaining below 300mg/dl last evening. Fasting blood sugar 190mg/dl this morning * Solu-medrol discontinued after 2nd dose yesterday, PO Prednisone starting this morning. * Will resume home dose of basal and give weight based NPH with prednisone to cover glycemic effects. * Continue CF and CR and loosen as blood drop and steroids taper. 10/06/18 * 68 yo M with T2DM admitted with Afib w RVR, sepsis, and CHF. * Pharmacy consulted for glycemic management on 10/06 for significant hyperglycemia. Etiology of hyperglycemia is likely multifactorial - patient possibly missed his PM dose of basal insulin the day of admission (10/04), and steroids also initiated 10/05 PM 2nd significant SOB (3 doses received thus far). Therefore patient is likely basal deficient with increased physiologic stress from significant infection, Afib with RVR, and steroids * Patient's outpatient regimen provides a minimum of 150 units of insulin per day. HbA1c suggests either excellent control or possible frequent outpatient hypoglycemia. Therefore, despite significant stressors, will adjust regimen per calculator suggestion at a low to moderate stress regimen based on outpatient dose of 150 units. * Spoke w Dr. Braga - may take time to improve BSG's based on possible basal deficiency. OK'd initiation of insulin drip if BSG's remain >300 mg/dL this evening despite significant changes made to regimen this afternoon PLAN FOR INPATIENT GLYCEMIC CONTROL: * Basal insulin * Lantus 60 units SQ HS * NPH 40 units daily with Prednisone 40mg daily (will taper dose of NPH down with tapering Prednisone dose) * Bolus insulin * NovoLog per scale ACHS or Q6hrs while NPO * Goal Range: Low 110 mg/dL - High 140 mg/dL * Correction Factor: 10 mg/dL/unit * Nutritional / Prandial insulin per carb ratio of 1 unit per 4 grams CHO consumed PLAN FOR DISCHARGE: * A1c 5.9%, continue home regimen as long as patient not experiencing hypoglycemia at home.
[2018-10-07] MEDS: INSULIN HUMAN NPH SC SCH (09:31)
--- NOTE | 2018-10-07 15:07 | Hospitalist Progress Note ---
Date of Service October 07, 2018 Assessment & Plan (1) Atrial fibrillation, rapid: Atrial fibrillation with RVR/CAD/hypertension-now rate control with diltiazem 180 mg a day. Continue warfarin. INR 1.6. subtherapeutic will hold warfarin for now since it is a possibility that patient will have catheterization on Wednesday by Dr. Naranjo. We will give heparin instead. (2) CHF (congestive heart failure): Continue furosemide drip, metolazone stopped Lasix 40 mg PO Replenish K Stopped lasix drip pt euvolemic I/O -1200 mls Strict in and out Daily weight Continue monitoring (3) UTI (urinary tract infection): BPH with LUTS/UTI- He was given Zosyn 4.5 g IV in the ED. Then ceftriaxone 1 g IV daily and when he spiked fever despite of receiving Ceftriaxone , started Imipenam Cilastatine to cover for ESBL. Ucx positive for gram negative bacillus identified as E.Coli pansensitive. consulted and he recommended to continue with ceftriaxone 2 g every 24 hours and stop Linezolid and imipenem cilastatin. Continue tamsulosin 0.4 mg at bedtime (4) Background diabetic retinopathy associated with type 2 diabetes mellitus: Place on Accu-Cheks before meals and at bedtime with NovoLog coverage per scale. Continue management per pharmacy. (5) Coronary atherosclerosis of [place] coronary vessel: See above (6) Dyslipidemia: Continue rosuvastatin 5 mg p.o. daily and fenofibrate 48 mg daily. (7) Hypertension: See above (8) Enlarged prostate without lower urinary tract symptoms (luts): See above (9) Vitamin B12 deficiency: Continue B12 supplement 100 mcg daily (10) H/O aortic valve replacement: Noted (11) Stage III chronic kidney disease: Follow serial laboratories (12) Neuropathy in diabetes: Continue pregabalin 150 mg p.o. 3 times daily (13) Type 2 diabetes mellitus, with long-term current use of insulin: As above. Subjective Patient seen and examined at the bedside.Patient reports shortness of breath is improving .Stopped Lasix drip, since patient had brisk output of thoughts of 2167 mL in the past 24 hours and he appears now euvolemic. Replenish potassium which is 3.1 at this point with potassium chloride 40 mEq p.o. now and then continue daily for 2 days and reevaluate again. Patient reports feeling much better. He is afebrile. Strict in and out and daily weight low-sodium diet and restricted fluid to 1200 cc. Patient denies fever chills so chest pain shortness of breath abdominal pain frequency urgency melena hematemesis hematochezia or dysuria. Good p.o. intake. No bowel changes. Review of Systems Review of Systems: All systems reviewed & are unremarkable except as noted in HPI & below Physical Exam Constitutional: WD/WN, vitals as above well developed Eyes: PERRL, conjunctivae normal, anicteric sclerae ENMT: external ear and nose normal, oropharynx normal Respiratory: normal respiratory effort, lungs clear to auscultation Cardiovascular: Rate/Rhythm: + irregularly irregular (<100) Gastrointestinal (Abdomen): normal bowel sounds, soft, nontender, no hepatosplenomegaly Musculoskeletal: no cyanosis or clubbing, extremities motor strength 5/5 Skin: no rashes, warm and dry Neurologic: patellar DTR's 2+ bilat, sensation intact Psychiatric: A+Ox3, euthymic affect Results & Data Vital Signs (Past 12 Hours) Vital Signs Temp Pulse Resp BP Pulse Ox 10/07/18 11:31 36.4 C L 88 20 103/60 98 10/07/18 07:35 36.5 C 96 H 18 95/71 L 96 10/07/18 03:52 36.4 C L 82 18 119/76 99 PG Care Time/CCT Total # of Minutes Spent Total Time Spent with Patient: Total time spent is greater than 50% in coordination of care (as documented) at patient's floor/unit and/or counseling patient: (1) UTI (urinary tract infection) Hematuria presence: without hematuria Urinary tract infection type: site unspecified Qualified Code(s): N39.0 - Urinary tract infection, site not specified (2) CHF (congestive heart failure) Heart failure chronicity: unspecified Heart failure type: unspecified Qualified Code(s): I50.9 - Heart failure, unspecified
[2018-10-07] MEDS ORDERED: POTASSIUM CHLORIDE 20 MEQ TABCR PO STA (15:27)
[2018-10-07] MEDS: ALBUMIN 25% 50 ML IV SCH (15:29)
[2018-10-07] MEDS ORDERED: WARFARIN SOD 2.5 MG TAB PO SCH (16:00)
[2018-10-07] MEDS ORDERED: WARFARIN SOD 2 MG TAB PO SCH (16:00)
--- NOTE | 2018-10-07 16:02 | Cardiology Consultation ---
Date of Consultation October 07, 2018 Assessment & Plan (1) AF (atrial fibrillation): -- Persistent atrial fibrillation-- initial RVR, now rate controlled on home diltiazem. 2. UTI - on ceftiraxone 3. Acute on Chronic diastolic heart failure--well compensated today after IV diuresis. Post mitral valve repair for severe mitral regurgitation 2007--mild MR on echo at [facility] 07/2018 4. Acute on CKD -- post diuresis SCr to 1.9 from baseline ~1.6 5. Post mitral valve repair for severe mitral regurgitation 2007--mild MR on echo at [facility] 07/2018 6. Chronic infrarenal aortic dissection--found incidentally, seen by Dr. Keller 7. Hypertension--well controlled on current regimen 8. Mild nonobstructive coronary artery disease, new regional wall motion abnormality. 9. Dyslipidemia 10. Suspected interstitial disease - moderate restriction, severely reduced diffusion on PFTs 09/2018 Today respiratory symptoms improved and breathing near recent baseline. Well perfused without significant congestion on exam. Persistent AF now well rate controlled on home diltiazem. Patient had been scheduled for an outpatient cardiac cath as part of work for chronic exertional symptoms in setting of new regional wall motion abnormality. Will plan to perform left/right heart cath on tuesday 10/10 at 9:30. Continue to hold coumadin pre-procedure. If staying overweekend reasonable to place on IV heparin. Continue home diltiazem. Agree with transition back to PO home maintenance diuretic. Please call if questions. History of Present Illness Attending Physician: Stephon Braga MD History of Present Illness Mr. Babb is a pleasant 68-year-old man with a history of mitral valve repair in 2007 for severe MR, paroxysmal atrial fibrillation on Coumadin, hypertension, hyperlipidemia, chronic kidney disease (baseline creatinine around 1.6), diabetes with peripheral neuropathy, chronic low back, chronic infrarenal aortic dissection, obstructive sleep apnea, suspected interstitial lung disease known to me from the outpatient setting. Currently admitted in the setting of increased dyspnea, UTI and AF with RVR. Patient was last seen by me 3 days ago at which time endorsed persistent limiting dyspnea despite home O2 and pulmonary management. There was also a question of a new apical wall motion abnormality. Had been scheduled for a left and right heart cath on 10/05/2018. Later, the same day after his cardiology visit presented to [facility] with increased urinary frequency, fevers/chills and increased SOB. Noted to be in AF with RVR to 130s on arrival. Given IV diltiazem x2, and lopressor x 1 before being started on his home PO diltiazem. Also received IV and PO steroids. Treated for UTI with broad spectrum antibiotics now on ceftriaxone. Also treated with diuretics for questionable heart failure (low dose lasix drip, metalazone, albumin). Negative 2L since admit. Allergies Allergy/AdvReac Type Severity Reaction Status Date / Time No Known Allergies Allergy Unverified 10/04/18 23:33 Home Medications Home Medications Medication Instructions Recorded Confirmed Type insulin aspart (U-100) 100 unit/mL 30 units SUBCUT TIDM #3 ml 08/12/18 10/10/18 History (3 mL) subcutaneous pen omega-3 fatty acids 1,250 mg 1,250 mg PO DAILY 08/12/18 10/10/18 History capsule fenofibrate nanocrystallized 48 mg 48 mg PO DAILY #90 tab 08/29/18 10/10/18 History tablet warfarin 3 mg tablet 3 mg PO DAILY #90 tab 08/29/18 10/10/18 History albuterol sulfate HFA 90 1 - 2 puffs INHALATION Q4H PRN gm 09/14/18 10/10/18 History mcg/actuation aerosol inhaler furosemide 20 mg tablet 40 mg PO DAILY tab 09/14/18 10/10/18 History fluticasone furoate 100 1 puffs INH DAILY #30 ea 09/16/18 10/10/18 Rx mcg/actuation blister powder for inhalation rosuvastatin 5 mg tablet 5 mg PO DAILY #30 tab 09/21/18 10/10/18 Rx cholecalciferol (vitamin D3) 1,000 1,000 units PO DAILY tab 10/04/18 10/10/18 History unit (25 mcg) tablet cyanocobalamin (vit B-12) 100 mcg 100 mcg PO DAILY tab 10/04/18 10/10/18 History tablet diltiazem HCl [Cartia XT] 180 mg PO BID 10/04/18 10/10/18 History insulin degludec [Tresiba 60 unit SUBCUT HS 10/04/18 10/10/18 History FlexTouch U-200] pregabalin 150 mg capsule 150 mg PO TID #270 cap 10/04/18 10/10/18 Rx tamsulosin 0.4 mg capsule 0.8 mg PO HS cap 10/04/18 10/10/18 History Patient History Medical History AF (atrial fibrillation) (Acute) Abdominal aortic aneurysm dissection (Acute) Abnormal diffusion capacity determined by pulmonary function test (Acute) Atrial flutter (Acute) BPH (benign prostatic hyperplasia) (Acute) Background diabetic retinopathy associated with type 2 diabetes mellitus (Acute) Bilateral renal cysts (Acute) Calculus of ureter (Acute 11/30/12) Coronary atherosclerosis of [place] coronary vessel (Acute 11/30/12) Chronic low back pain (Acute) Complex sleep apnea syndrome (Acute) Congestive heart failure (Acute) Diabetes mellitus type 2, controlled (Acute) Diabetic peripheral neuropathy associated with type 2 diabetes mellitus (Acute) Diverticulosis (Acute) Dysesthesia (Acute) Dyslipidemia (Acute) Enlarged prostate without lower urinary tract symptoms (luts) (Acute) Hypertension (Acute) Interstitial lung disease (Acute) Intervertebral disc disease (Acute) Joint pain, knee (Acute) Kidney stone on left side (Acute) Loss of protective sensation of skin of foot (Acute) Lumbar back pain (Acute) Neuropathy in diabetes (Acute 11/30/12) Obesity (Acute) Restrictive lung disease (Acute) SOBOE (shortness of breath on exertion) (Acute) Skin change (Acute) Stage III chronic kidney disease (Acute) 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 (Acute) Type 2 diabetes mellitus, with long-term current use of insulin (Acute) Vitamin B12 deficiency (Acute) Vitamin D deficiency (Acute) Surgical History Status post mitral valve annuloplasty (Acute) History of mitral valve replacement History of shoulder surgery History of surgical removal of pilonidal cyst Family History Mother Diabetes Colon cancer Grandmother Multiple sclerosis Father Coronary heart disease Diabetes Myocardial infarction Grandfather Stroke Sister Diabetes Hypertension Brother Hypertension Diabetes Son Depression Social History Preferred Language: Welsh Communication Ability: Effective Visual Impairment: No Limitations Hearing Ability: Normal Director Of Managed Services Required: No Beliefs That Will Affect Care: None marital status: Current Living Situation: Spouse and Family current occupational status: retired current occupation: Former [employer] Feels Safe at Home: Yes Smoking Status: Never smoker Hx Alcohol Use: No Hx Substance Use: No Childhood Exposure to Second-Hand Smoke: No Dental Care, Regularly: No Physical Activity Frequency: Does not Exercise Seatbelt Use: always Sunscreen Use: No Review of Systems Review of Systems: All systems reviewed & are unremarkable except as noted in HPI & below Physical Exam Constitutional: well developed Eyes: + anicteric sclerae Respiratory: Auscultation: lungs clear to auscultation bilaterally and + crackles (few fine crackles at bases. ) Cardiovascular: Rate/Rhythm: + irregularly irregular Heart Sounds: + murmur (2/6 at apex) Vessels: no JVD Extremities: normal capillary refill; no edema Gastrointestinal (Abdomen): normal bowel sounds, soft, nontender, no hepatosplenomegaly Skin: no rashes, warm and dry Neurologic: awake Psychiatric: A+Ox3, euthymic affect Results & Data Vital Signs (Past 12 Hours) Vital Signs Temp Pulse Resp BP Pulse Ox 10/07/18 11:31 36.4 C L 88 20 103/60 98 10/07/18 07:35 36.5 C 96 H 18 95/71 L 96 PG Care Time/CCT Total # of Minutes Spent Total Time Spent with Patient: Total time spent is greater than 50% in coordination of care (as documented) at patient's floor/unit and/or counseling patient:
[2018-10-07] MEDS ORDERED: HEPARIN SODIUM/DEXTROSE 25,000 UNITS/500 ML BAG IV SCH (16:30)
[2018-10-07] MEDS: cefTRIAXone SODIUM 2,000 MG in DEXTROSE 5% 50 ML IV SCH (17:09)
[2018-10-07] MEDS ORDERED: HEPARIN IV BOLUS 6,000 UNITS in SYRINGE 0 ML IV ONE (19:45)
[2018-10-07 21:12] LABS: Partial Thromboplastin Time 27.9 Seconds (21.0-31.0)
[2018-10-07] MEDS: Heparin Adult STANDARD Wt-Based Dextrose 5% 25,000 units/500 mL IV SCH (21:24)
[2018-10-07] MEDS: TAMSULOSIN HCL 0.4 MG CAP PO SCH (21:26)
[2018-10-07] MEDS: INSULIN GLARGINE SOLOSTAR 100 UNITS/ML 3 ML PEN SC SCH (21:27)
[2018-10-07] MEDS: ACETAMINOPHEN 325 MG TAB PO PRN (23:15)
[2018-10-08 03:40] LABS: Creatinine Clr Calc Pharmacy 46.6 ml/min; Est GFR (African American) 48.7
[2018-10-08 03:51] LABS: Partial Thromboplastin Time 53.5 Seconds (21.0-31.0)
[2018-10-08 07:43] LABS: Basophils # (auto) 0.01 K/uL (0-0.2); Basophils % (auto) 0.1 %; Eosinophils # (auto) 0.02 K/uL (0-0.5); Eosinophils % (auto) 0.1 %; Hematocrit (blood only) 37.7 % (42-52); Hemoglobin 13.4 g/dL (14.0-18.0); Immature Granulocytes # (auto) 0.08 K/uL (0.00-0.02); Immature Granulocytes % (auto) 0.5 %; Lymphocytes # (auto) 1.34 K/uL (1.2-3.4); Mean Corpuscular Hemoglobin 30.2 pg (25-34); Mean Corpuscular Volume 84.9 fL (80-100); Mean Platelet Volume 10.4 fL (7.4-10.4); Monocytes # (auto) 1.36 K/uL (0.11-0.59); Monocytes % (auto) 9.1 %; Neutrophils # (auto) 12.14 K/uL (1.4-6.5); Neutrophils % (auto) 81.2 %; Platelet Count 226 K/uL (130-400); RDW Standard Deviation 43.9 fL (36.4-46.3); Red Blood Count 4.44 M/uL (4.7-6.1); White Blood Count 14.95 K/uL (4.8-10.8)
[2018-10-08] MEDS: INSULIN ASPART 100 UNITS/ML 3 ML PEN SC SCH ×4 (07:43→22:06)
[2018-10-08] MEDS: dilTIAZem HCL 180 MG CAPCR PO SCH ×2 (07:44→20:04)
[2018-10-08] MEDS: FENOFIBRATE NANOCRYSTALLIZED 48 MG TABLET PO SCH (07:44)
[2018-10-08 07:45] LABS: Mean Corpuscular Hgb Conc 35.5 g/dL (32-36)
[2018-10-08] MEDS: predniSONE 20 MG TAB PO SCH (07:45)
[2018-10-08] MEDS: CHOLECALCIFEROL 1,000 UNITS TAB PO SCH (07:45)
[2018-10-08] MEDS: ROSUVASTATIN CALCIUM 5 MG TAB PO SCH (07:46)
[2018-10-08] MEDS: POTASSIUM CHLORIDE 20 MEQ TABCR PO SCH (07:46)
[2018-10-08] MEDS: CYANOCOBALAMIN (VITAMIN B-12) 100 MCG TABLET PO SCH (07:46)
[2018-10-08] MEDS: FUROSEMIDE 40 MG TAB PO SCH (07:46)
[2018-10-08] MEDS: INSULIN HUMAN NPH SC SCH (07:47)
[2018-10-08] MEDS: PREGABALIN 150 MG CAP PO SCH ×3 (07:52→20:07)
[2018-10-08 07:59] LABS: Albumin Level 3.3 gm/dl (3.4-5.0); BUN Creatinine Ratio 34.7 (10-20); Calcium 9.6 mg/dl (8.5-10.1); Creatinine Clr Calc Pharmacy 48.4 ml/min; Est GFR (African American) 50.9; Potassium 3.4 mmol/L (3.5-5.1)
[2018-10-08 08:02] LABS: Albumin Globulin Ratio 0.9 (0.9-2); Bilirubin,Total 0.3 mg/dl (0.2-1); Globulin 3.8 gm/dl (2.5-4.0); Total Protein 7.1 gm/dl (6.4-8.2)
--- NOTE | 2018-10-08 11:21 | Pharmacy Report ---
Pharmacy Glycemic Short Note 2 - Date of Service October 08, 2018 - Glycemic Short BSG Results (Last 24 hours): 10/07/18 10/07/18 10/07/18 11:29 16:41 20:38 Glucose POC Glucose 304 H* 267 H 258 H 10/08/18 10/08/18 07:26 07:28 Glucose 170 H POC Glucose 164 H OUTPATIENT ANTIDIABETIC REGIMEN: * Tresiba 60 units SC HS * Insulin aspart 30-35 units SC TIDM * A1c = 5.9 % on 10/05/18 ASSESSMENT: BSGs appear improved today. Prednisone 40mg continues. 10/09/18 is the last day of prednisone 40, will continue with NPH 40u QAM. Will adjust NPH as prednisone is tapered. PLAN FOR INPATIENT GLYCEMIC CONTROL: * Basal insulin * Lantus 60 units SQ HS * NPH 40 units daily with Prednisone 40mg daily (will taper dose of NPH down with tapering Prednisone dose) * Bolus insulin * NovoLog per scale ACHS or Q6hrs while NPO * Goal Range: Low 110 mg/dL - High 140 mg/dL * Correction Factor: 8 mg/dL/unit * Nutritional / Prandial insulin per carb ratio of 1 unit per 3 grams CHO consumed PLAN FOR DISCHARGE: * A1c 5.9%, continue home regimen as long as patient not experiencing hypoglycemia at home.
[2018-10-08] MEDS: Heparin Adult STANDARD Wt-Based Dextrose 5% 25,000 units/500 mL IV SCH (13:33)
--- NOTE | 2018-10-08 15:31 | Hospitalist Progress Note ---
Date of Service October 08, 2018 Assessment & Plan (1) Atrial fibrillation, rapid: Atrial fibrillation with RVR/CAD/hypertension-now rate control with diltiazem 180 mg a day. Continue warfarin. INR 1.6. subtherapeutic will hold warfarin for now since it is a possibility that patient will have catheterization on Wednesday by Dr. Naranjo. We will give heparin instead. (2) CHF (congestive heart failure): Stopped furosemide drip, continue furosemide 40 mg p.o. every morning Replenish K I/O -1200 mls Strict in and out Daily weight Continue monitoring Replenish electrolytes DVT prophylaxis and A. fib prophylaxis heparin full dose Patient will have cardiac cath on Wednesday by Dr. Naranjo. (3) UTI (urinary tract infection): BPH with LUTS/UTI- He was given Zosyn 4.5 g IV in the ED. Then ceftriaxone 1 g IV daily and when he spiked fever despite of receiving Ceftriaxone , started Imipenam Cilastatine to cover for ESBL. Ucx positive for gram negative bacillus identified as E.Coli pansensitive. consulted and he recommended to continue with ceftriaxone 2 g every 24 hours and stop Linezolid and imipenem cilastatin. Continue tamsulosin 0.4 mg at bedtime (4) Background diabetic retinopathy associated with type 2 diabetes mellitus: Place on Accu-Cheks before meals and at bedtime with NovoLog coverage per scale. Continue management per pharmacy. (5) Coronary atherosclerosis of [place] coronary vessel: See above (6) Dyslipidemia: Continue rosuvastatin 5 mg p.o. daily and fenofibrate 48 mg daily. (7) Hypertension: See above (8) Enlarged prostate without lower urinary tract symptoms (luts): See above (9) Vitamin B12 deficiency: Continue B12 supplement 100 mcg daily (10) H/O aortic valve replacement: Noted (11) Stage III chronic kidney disease: Follow serial laboratories (12) Neuropathy in diabetes: Continue pregabalin 150 mg p.o. 3 times daily (13) Type 2 diabetes mellitus, with long-term current use of insulin: As above. Subjective Patient seen and examined at the bedside.Patient reports shortness of breath is improving.Patient reports feeling much better. He is afebrile. Strict in and out and daily weight low-sodium diet and restricted fluid to 1200 cc. Patient denies fever chills so chest pain shortness of breath abdominal pain frequency urgency melena hematemesis hematochezia or dysuria. Good p.o. intake. No bowel changes. Review of Systems Review of Systems: All systems reviewed & are unremarkable except as noted in HPI & below Physical Exam Constitutional: WD/WN, vitals as above well developed Eyes: PERRL, conjunctivae normal, anicteric sclerae ENMT: external ear and nose normal, oropharynx normal Neck: trachea midline, no thyromegaly Respiratory: Auscultation: + wheezes (Improving) Cardiovascular: Rate/Rhythm: + irregularly irregular Chest (Breasts): normal inspection/palpation of breasts Gastrointestinal (Abdomen): normal bowel sounds, soft, nontender, no hepatosplenomegaly Musculoskeletal: no cyanosis or clubbing, extremities motor strength 5/5 Skin: no rashes, warm and dry Neurologic: patellar DTR's 2+ bilat, sensation intact Psychiatric: A+Ox3, euthymic affect Genitourinary: no testicular masses, no penis abnormality Lymphatic: no cervical or axillary lymphadenopathy Results & Data Vital Signs (Past 12 Hours) Vital Signs Temp Pulse Resp BP Pulse Ox 10/08/18 11:31 36.5 C 93 H 18 118/79 94 10/08/18 07:46 36.4 C L 87 20 105/59 L 92 PG Care Time/CCT Total # of Minutes Spent Total Time Spent with Patient: Total time spent is greater than 50% in coordination of care (as documented) at patient's floor/unit and/or counseling patient: (1) CHF (congestive heart failure) Heart failure chronicity: unspecified Heart failure type: unspecified Qualified Code(s): I50.9 - Heart failure, unspecified (2) UTI (urinary tract infection) Hematuria presence: without hematuria Urinary tract infection type: site unspecified Qualified Code(s): N39.0 - Urinary tract infection, site not specified
[2018-10-08] MEDS: cefTRIAXone SODIUM 2,000 MG in DEXTROSE 5% 50 ML IV SCH (17:49)
[2018-10-08] MEDS: TAMSULOSIN HCL 0.4 MG CAP PO SCH (20:03)
[2018-10-08] MEDS: INSULIN GLARGINE SOLOSTAR 100 UNITS/ML 3 ML PEN SC SCH (22:08)
[2018-10-09] MEDS: ACETAMINOPHEN 325 MG TAB PO PRN ×2 (00:29→21:14)
[2018-10-09 06:36] LABS: Hematocrit (blood only) 39.6 % (42-52); Hemoglobin 13.7 g/dL (14.0-18.0); Mean Corpuscular Hemoglobin 29.6 pg (25-34); Mean Corpuscular Hgb Conc 34.6 g/dL (32-36); Mean Corpuscular Volume 85.5 fL (80-100); Mean Platelet Volume 10.9 fL (7.4-10.4); Platelet Count 219 K/uL (130-400); RDW Coefficient of Variation 14.1 % (11.5-14.5); RDW Standard Deviation 44.6 fL (36.4-46.3); Red Blood Count 4.63 M/uL (4.7-6.1); White Blood Count 11.85 K/uL (4.8-10.8)
[2018-10-09 06:43] LABS: Partial Thromboplastin Ratio 1.5; Partial Thromboplastin Time 39.8 Seconds (21.0-31.0)
[2018-10-09 07:11] LABS: Albumin Level 3.3 gm/dl (3.4-5.0); Calcium 9.2 mg/dl (8.5-10.1); Creatinine Clr Calc Pharmacy 49.4 ml/min; Est GFR (African American) 52.5; Est GFR (Non-African American) 45.3; Potassium 3.3 mmol/L (3.5-5.1)
[2018-10-09 07:14] LABS: Albumin Globulin Ratio 0.9 (0.9-2); Bilirubin,Total 0.4 mg/dl (0.2-1); Globulin 3.8 gm/dl (2.5-4.0); Total Protein 7.1 gm/dl (6.4-8.2)
[2018-10-09] MEDS ORDERED: HEPARIN IV BOLUS 6,000 UNITS in SYRINGE 0 ML IV ONE (07:15)
[2018-10-09] MEDS: CHOLECALCIFEROL 1,000 UNITS TAB PO SCH (07:41)
[2018-10-09] MEDS: predniSONE 20 MG TAB PO SCH (07:41)
[2018-10-09] MEDS: FUROSEMIDE 40 MG TAB PO SCH (07:42)
[2018-10-09] MEDS: POTASSIUM CHLORIDE 20 MEQ TABCR PO SCH (07:42)
[2018-10-09] MEDS: CYANOCOBALAMIN (VITAMIN B-12) 100 MCG TABLET PO SCH (07:42)
[2018-10-09] MEDS: ROSUVASTATIN CALCIUM 5 MG TAB PO SCH (07:42)
[2018-10-09] MEDS: dilTIAZem HCL 180 MG CAPCR PO SCH ×2 (07:43→21:15)
[2018-10-09] MEDS: FENOFIBRATE NANOCRYSTALLIZED 48 MG TABLET PO SCH (07:43)
[2018-10-09] MEDS: INSULIN ASPART 100 UNITS/ML 3 ML PEN SC SCH ×4 (07:45→21:16)
[2018-10-09] MEDS: PREGABALIN 150 MG CAP PO SCH ×3 (07:57→21:14)
[2018-10-09] MEDS ORDERED: INSULIN HUMAN NPH SC SCH (09:00)
--- NOTE | 2018-10-09 09:42 | Pharmacy Report ---
Glycemic Control Progress Note - Date of Service October 09, 2018 - Scope Glycemic Pharmacist consulted for glycemic control to write orders per [facility] inpatient glycemic control protocol. - Objective Accuchecks BSG(last 24 hours):: 10/08/18 10/08/18 10/08/18 11:29 16:40 20:36 Glucose POC Glucose 255 H 226 H 264 H 10/09/18 10/09/18 06:03 07:12 Glucose 138 H POC Glucose 141 H HbA1c:: Hemoglobin A1c 5.9 % (4.5-5.6) H 10/05/18 03:15 - Recent Pertinent Medications The patient is currently receiving: * Basal insulin: Lantus 60 units every 24 hours + NPH 40 UNITS DAILY * Correctional Insulin: Novolog Correction per scale ACHS Goal Range: Low 110 mg/dL - High 140 mg/dL Correction Factor: 8 mg/dL/unit * Prandial insulin: Per carb ratio of 1 unit per 3 grams CHO consumed * Oral Agents: - Outpatient Anti-Diabetic Meds TRESIBA 60 UNITS NIGHTLY HUMALOG 30-35 UNITS WITH MEALS - Assessment & Plan ASSESSMENT: * See progress note from 10/06/18 for more background info, in short: * Pt receiving SQ basal bolus insulin regimen for hyperglycemia secondary to baseline DM (outpatient regimen on hold) and steroids (currently on prednisone taper - prednisone 40 mg today) * Patient is currently receiving an average of 199 units of insulin per day * 100 units of basal insulin (60 units of Lantus and 40 units of NPH) * 99 units of prandial/correctional insulin * BSGs ranging 164 - 264 mg/dl over the past 24hrs * Changes needed to insulin regimen: * AM Fasting BSG = 141 mg/dl. This is just a touch above goal range for patient based on inpatient targets and co-morbidities; however, this is significantly decreased from yesterday's fasting of 164 mg/dL. Will continue Lantus 60 units nightly for now. As this is a goal range fasting for patient. * Post-prandial BSGs are elevated. Increased NPH by 20% to 50 units to cover post-prandial blood sugar increases from prednisone. Continue current carbohydrate ratio. * Total daily dose = >200 units. PLAN FOR INPATIENT GLYCEMIC CONTROL: * Continuing Lantus 60 units SQ nightly * Continuing correction factor of 8 mg/dl/unit * Continuing carb ratio of 1 unit per 3 grams CHO consumed * Continuing goal range of Low 110 mg/dL - High 140 mg/dL RECOMMENDATIONS FOR DISCHARGE: * Per outpatient records at diabetes clinic, patient is a low glycation index patient so HbA1C of 5.9% is most likely closer to HbA1C of 6.9%. This is reasonable for patient. Can continue outpatient regimen as long as he does not have significant hypoglycemia. (per outpatient records this is not a problem) * Please note that the plan above was derived based on current level of insulin resistance and hospital stress. These recommendations are appropriate for inpatient admission only. Plan of care upon discharge will need to be reassessed to avoid potential outpatient hypo/hyperglycemia. Thank you.
[2018-10-09] MEDS: Heparin Adult STANDARD Wt-Based Dextrose 5% 25,000 units/500 mL IV SCH (10:57)
--- NOTE | 2018-10-09 13:42 | Hospitalist Progress Note ---
Date of Service October 09, 2018 Assessment & Plan (1) Atrial fibrillation, rapid: Atrial fibrillation with RVR/CAD/hypertension-now rate control with diltiazem 180 mg a day. Now on heparin drip for A. fib's N.p.o. after midnight and stop heparin drip for the cardiac catheterization tomorrow by Dr. Naranjo DVT prophylaxis as above Full code (2) CHF (congestive heart failure): Continue furosemide 40 mg p.o. every morning Replenish K I/O -1200 mls Strict in and out Daily weight Continue monitoring Replenish electrolytes DVT prophylaxis and A. fib prophylaxis heparin full dose Patient will have cardiac cath on Wednesday by Dr. Naranjo. (3) UTI (urinary tract infection): BPH with LUTS/UTI- He was given Zosyn 4.5 g IV in the ED. Then ceftriaxone 1 g IV daily and when he spiked fever despite of receiving Ce ftriaxone , started Imipenam Cilastatine to cover for ESBL. Ucx positive for gram negative bacillus identified as E.Coli pansensitive. consulted and he recommended to continue with ceftriaxone 2 g every 24 hours and stop Linezolid and imipenem cilastatin. White blood cell count trending down from 14.95 to 11.85 Continue tamsulosin 0.4 mg at bedtime (4) Background diabetic retinopathy associated with type 2 diabetes mellitus: Place on Accu-Cheks before meals and at bedtime with NovoLog coverage per scale. Continue management per pharmacy. (5) Coronary atherosclerosis of [place] coronary vessel: See above (6) Dyslipidemia: Continue rosuvastatin 5 mg p.o. daily and fenofibrate 48 mg daily. (7) Hypertension: See above (8) Enlarged prostate without lower urinary tract symptoms (luts): See above (9) Vitamin B12 deficiency: Continue B12 supplement 100 mcg daily (10) H/O aortic valve replacement: Noted (11) Stage III chronic kidney disease: Follow serial laboratories (12) Neuropathy in diabetes: Continue pregabalin 150 mg p.o. 3 times daily (13) Type 2 diabetes mellitus, with long-term current use of insulin: As above. Subjective Patient seen and examined at the bedside.Patient reports shortness of breath is improving.Patient reports feeling much better. He is afebrile. Strict in and out and daily weight low-sodium diet and restricted fluid to 1200 cc. Keep him n.p.o. after midnight and hold heparin drip for the cardiac catheterization tomorrow by Dr. Naranjo. Patient denies fever chills so chest pain shortness of breath abdominal pain frequency urgency melena hematemesis hematochezia or dysuria. Good p.o. intake. No bowel changes. Review of Systems Review of Systems: All systems reviewed & are unremarkable except as noted in HPI & below Physical Exam Constitutional: WD/WN, vitals as above well developed Eyes: PERRL, conjunctivae normal, anicteric sclerae ENMT: external ear and nose normal, oropharynx normal Neck: trachea midline, no thyromegaly Respiratory: normal respiratory effort, lungs clear to auscultation Cardiovascular: Rate/Rhythm: + irregularly irregular Chest (Breasts): normal inspection/palpation of breasts Gastrointestinal (Abdomen): normal bowel sounds, soft, nontender, no hepatosplenomegaly Musculoskeletal: no cyanosis or clubbing, extremities motor strength 5/5 Skin: no rashes, warm and dry Neurologic: patellar DTR's 2+ bilat, sensation intact Psychiatric: A+Ox3, euthymic affect Genitourinary: no testicular masses, no penis abnormality Lymphatic: no cervical or axillary lymphadenopathy Results & Data Vital Signs (Past 12 Hours) Vital Signs Temp Pulse Pulse Resp BP Pulse Ox 10/09/18 12:09 36.8 C 86 22 125/95 96 10/09/18 08:00 79 10/09/18 07:41 36.4 C L 83 22 106/77 93 10/09/18 04:02 36.4 C L 84 16 102/74 98 PG Care Time/CCT Total # of Minutes Spent Total Time Spent with Patient: Total time spent is greater than 50% in coordination of care (as documented) at patient's floor/unit and/or counseling patient: (1) CHF (congestive heart failure) Heart failure chronicity: unspecified Heart failure type: unspecified Qualified Code(s): I50.9 - Heart failure, unspecified (2) UTI (urinary tract infection) Hematuria presence: without hematuria Urinary tract infection type: site unspecified Qualified Code(s): N39.0 - Urinary tract infection, site not specified
[2018-10-09 14:43] LABS: Partial Thromboplastin Time 80.6 Seconds (21.0-31.0)
[2018-10-09] MEDS: cefTRIAXone SODIUM 2,000 MG in DEXTROSE 5% 50 ML IV SCH (17:19)
[2018-10-09] MEDS: INSULIN GLARGINE SOLOSTAR 100 UNITS/ML 3 ML PEN SC SCH (21:17)
[2018-10-09] MEDS: TAMSULOSIN HCL 0.4 MG CAP PO SCH (21:32)
[2018-10-09 21:33] LABS: Partial Thromboplastin Ratio 2.1
[2018-10-09 21:50] LABS: Partial Thromboplastin Time 56.1 Seconds (21.0-31.0)
[2018-10-10] MEDS ORDERED: HOLD HEPARIN ORDER ONE
[2018-10-10 07:38] LABS: INR 1.3 (0.9-1.1); Partial Thromboplastin Ratio 0.9; Partial Thromboplastin Time 23.9 Seconds (21.0-31.0)
[2018-10-10 07:53] LABS: Albumin Level 3.6 gm/dl (3.4-5.0); BUN Creatinine Ratio 38.5 (10-20); Calcium 9.8 mg/dl (8.5-10.1); Creatinine Clr Calc Pharmacy 45.9 ml/min; Est GFR (African American) 48.4; Est GFR (Non-African American) 41.7; Potassium 3.4 mmol/L (3.5-5.1)
[2018-10-10 07:56] LABS: Albumin Globulin Ratio 0.9 (0.9-2); Bilirubin,Total 0.4 mg/dl (0.2-1); Total Protein 7.6 gm/dl (6.4-8.2)
[2018-10-10] MEDS: CHOLECALCIFEROL 1,000 UNITS TAB PO SCH (08:06)
[2018-10-10] MEDS: CYANOCOBALAMIN (VITAMIN B-12) 100 MCG TABLET PO SCH (08:06)
[2018-10-10] MEDS: predniSONE 20 MG TAB PO SCH (08:06)
[2018-10-10] MEDS: FUROSEMIDE 40 MG TAB PO SCH (08:07)
[2018-10-10] MEDS: dilTIAZem HCL 180 MG CAPCR PO SCH ×2 (08:07→20:38)
[2018-10-10] MEDS: FENOFIBRATE NANOCRYSTALLIZED 48 MG TABLET PO SCH (08:07)
[2018-10-10] MEDS: ROSUVASTATIN CALCIUM 5 MG TAB PO SCH (08:08)
[2018-10-10] MEDS: PREGABALIN 150 MG CAP PO SCH ×3 (08:13→20:39)
[2018-10-10] MEDS: INSULIN ASPART 100 UNITS/ML 3 ML PEN SC SCH ×4 (08:15→22:11)
[2018-10-10] MEDS ORDERED: INSULIN HUMAN NPH SC ONE (08:30)
[2018-10-10] MEDS ORDERED: MIDAZOLAM HCL 1 MG/ML 2ML VIAL ONE (09:23)
[2018-10-10] MEDS ORDERED: NiCARDipine HCL INJ 2.5 MG/ML 10 ML AMP ONE (09:24)
[2018-10-10] MEDS ORDERED: HEPARIN (PORCINE) 1000 UNIT/ML 10 ML (CATH LAB USE ONLY) ONE (09:24)
[2018-10-10] MEDS ORDERED: fentaNYL citrate 100 MCG/2 ML VIAL ONE (09:24)
[2018-10-10] MEDS ORDERED: NITROGLYCERIN/D5W 100MCG/ML 20ML SYR ONE (09:24)
--- NOTE | 2018-10-10 09:50 | Pre Anesthesia Assessment ---
Date of Service October 10, 2018 Pre Sedation Assessment Vital Signs Temp Pulse Pulse Resp BP Pulse Ox 10/10/18 07:59 97.7 F 105 H 22 110/84 97 10/10/18 03:58 97.5 F L 80 22 136/83 98 10/09/18 23:16 97.5 F L 77 20 122/79 98 10/09/18 19:46 97.7 F 97 H 19 116/89 98 10/09/18 16:00 82 10/09/18 15:42 97.7 F 88 18 99/76 L 94 10/09/18 12:09 98.2 F 86 22 125/95 96 Cardiovascular RRR, no murmur, no edema Respiratory normal respiratory effort, lungs clear to auscultation Pre-Sedation Airway Assessment Smoking Status: Never smoker Hx Sleep Apnea: No Hx Difficult Intubation: No Short, Thick Neck: No Thyromental Distance: > or= 3.5 Finger Breadths Oral Cavity: + WNL Mallampati Class: III Procedure Planning Contraindications for Sedation: none Current Medications Reviewed: Yes Notes The planned sedation has been discussed with the patient. Informed Consent was obtained. I have identified the patient, determined the appropriateness of sedation and have assessed the patient immediately prior to the procedure. All medicine(s) and interventions are by my order.
--- NOTE | 2018-10-10 09:55 | Cardiology Progress Note ---
Date of Service October 10, 2018 Assessment & Plan (1) Atrial fibrillation, rapid: -- Persistent atrial fibrillation-- initial RVR, now rate controlled on home diltiazem. 2. UTI - on ceftiraxone 3. Acute on Chronic diastolic heart failure--well compensated today 4. Acute on CKD -- post diuresis SCr to 1.9 from baseline ~1.6 5. Post mitral valve repair for severe mitral regurgitation 2007--mild MR on echo at [facility] 07/2018 6. Chronic infrarenal aortic dissection--found incidentally, seen by Dr. Keller 7. Hypertension--well controlled on current regimen 8. Mild nonobstructive coronary artery disease, new regional wall motion abnormality. 9. Dyslipidemia 10. Suspected interstitial disease - moderate restriction, severely reduced diffusion on PFTs 09/2018 Plan to proceed with left and right heart catheterization ADDENDUM: - Cath showed small apical LAD disease. Recommend medical management. Started on Imdur. From a cardiac standpoint OK for discharge tomorrow. - Can resume coumadin tonight. Can discontinue heparin. Subjective Feeling well this morning. Diuresed well yesterday. No chest pain. Tele reviewed - AF 80-110s Review of Systems Review of Systems: All systems reviewed & are unremarkable except as noted in HPI & below Physical Exam Constitutional: WD/WN, vitals as above Eyes: PERRL, conjunctivae normal, anicteric sclerae Respiratory: normal respiratory effort, lungs clear to auscultation Cardiovascular: Rate/Rhythm: + irregularly irregular Heart Sounds: no murmur Extremities: normal capillary refill; no edema Gastrointestinal (Abdomen): Percussion/Palpation: abdomen soft; abdomen nontender Skin: no rashes, warm and dry Neurologic: no focal motor deficits Results & Data Vital Signs (Past 12 Hours) Vital Signs Temp Pulse Resp BP Pulse Ox 10/10/18 07:59 97.7 F 105 H 22 110/84 97 10/10/18 03:58 97.5 F L 80 22 136/83 98 10/09/18 23:16 97.5 F L 77 20 122/79 98 PG Care Time/CCT Total # of Minutes Spent Total Time Spent with Patient: Total time spent is greater than 50% in coordination of care (as documented) at patient's floor/unit and/or counseling patient:
[2018-10-10] MEDS ORDERED: ADENOSINE IV SOLN 3 MG/ML 20 ML VIAL IV ONE ×3 (10:43→11:22)
[2018-10-10 12:00] LABS: iSTAT Venous Carbon Dioxide > 40 mEq/l (24-31)
[2018-10-10 12:00] LABS: iSTAT Venous Carbon Dioxide > 40 mEq/l (24-31)
[2018-10-10 12:00] LABS: iSTAT Venous Carbon Dioxide > 40 mEq/l (24-31)
--- NOTE | 2018-10-10 12:01 | Post Anesthesia Assessment ---
Date of Service October 10, 2018 Post Sedation Assessment Vital Signs Temp Pulse Pulse Resp BP Pulse Ox 10/10/18 07:59 97.7 F 105 H 22 110/84 97 10/10/18 03:58 97.5 F L 80 22 136/83 98 10/09/18 23:16 97.5 F L 77 20 122/79 98 10/09/18 19:46 97.7 F 97 H 19 116/89 98 10/09/18 16:00 82 10/09/18 15:42 97.7 F 88 18 99/76 L 94 10/09/18 12:09 98.2 F 86 22 125/95 96 Recovery Score Activity: Moves 4 extremities Respiration: Deep Breath/Cough Circulation: +/-20% PreAnes Value Consciousness: Fully Awake Oxygen Saturation: O2 needed for >90% Discharge Sedation Level of Care: Fast Track Phase II Post Sedation Plan On clinical assessment, the patient appears to have tolerated the sedation without complications. Patient is recovering as anticipated. Patient will continue to be monitored by nursing and may be discharged when sedation discharge criteria are met per below protocol. Upon Completions of procedure and additional 15 minutes continue every 5 minute vital signs and the P.A.R. score; then discharge to a Phase I or Fast Track to Phase II per the following guidelines: * Discharge Patient to appropriate Phase II area if PAR is 8 or greater or return to pre- procedure baseline. The post - procedure orders will be as directed. * If PAR score is less than 8 or not return to pre-procedure baseline then patient will follow Phase I monitoring till PAR is reached for Phase II. The Phase I may be done in procedure room or may call to secure a Phase I area. * If naloxone or flumazenil are used for reversal, hold in Phase I for continued monitoring from when last reversal dose was given for a minimum of 60 minutes or longer pending the nurse and/or physician discretion of patient condition before discharge to Phase II. Please call the Sedation Physician to re-evaluate and complete post-note for discharge to Phase II area. Do NOT discharge from procedure sedation or Phase 1 until post- sedation evaluation note is complete by procedure /sedation MD Sedation Discharge Instructions to be given to the patient at discharge to home.
--- NOTE | 2018-10-10 12:04 | Cardiac Catheterization ---
[facility] Data: [employer] Cardiac Status Clinical evaluation leading to the procedure CAD Presenation: Positive Stress Test Anginal Classification: CCS III Heart Failure: No Cardiogenic Shock within 24 Hours: No Cardiac Arrest within 24 Hours: No Imaging Studies Past 6 Months: Yes Stress Studies Past 6 Months: Yes Stress Testing w/SPECT MPI: Yes - Positive and Risk/Extent of Ischemia (Low) Diagnostic Physicians Name: Elpidio Naranjo MD Status: Elective Closure Device Percutaneous Entry Location: Radial Closure Device: Radial Band Recommendations: None Intraprocedure Events Significant Disection: No Perforation: No Cardiac Cath Procedure Full Procedure Date October 10, 2018 Pre-Procedure Diagnosis Pre-Procedure Diagnosis: Positive Stress Test and CHF AUC Score AUC Score: 7 Post-Procedure Diagnosis Post-Procedure Diagnosis: Severe CAD and Elevated Intracardiac Pressures Procedure(s) Performed Procedure(s) Performed: Coronary Angiography, Left Heart Cath, Right Heart Cath, Ultrasound Guided Vascular Access and Fractional Flow [place] [employer] Ranging Crewmember Elpidio Naranjo MD Cut Off Machine Unloader(s) Oliver Estimated Blood Loss Estimated Blood Loss: 15 Medication(s) Medication(s): Adenosine, Clopidogrel, Fentanyl, Lidocaine 1%, Nicardipine, Nitroglycerin and Versed Summary of Findings Indication: Dyspnea on exertion, abnormal stress test Access: 6 Fr right radial artery, 6 Fr brachial vein Catheters: 6 Fr Elroy Pearl, JR4, AR-1. EBU 3.5 guide Findings: LM -luminal irregularities LAD -moderate caliber vessel, 40-50% diffuse proximal to mid LAD, 40-50% latemid stenosis at angulated/myocardial bridging segment. 80 to 90% distal stenosis as wraps around apex. Small first diagonal with moderate diffuse disease. Circumflex -moderate caliber vessel, 30% proximal disease, diffuse 30% mid segment disease into OM 3. 30-40% diffuse disease and high OM1. RCA -moderate caliber, dominant, 30 to 40% mid segment, small PDA, PLB's with luminal irregularities RA 1 RV 28/1 PA 30/23 (26) PAWP 19 PaSat 71 AoSat 97 Doreen CO/CI 5.3/2.6 Thermo/CO/CI 2.6/1.3 FFR mid LAD Left main cannulated with EBU 3.5 guide BMW wire placed into distal LAD ASIST FFR catheter placed to distal LAD Pd/Pa 0.91 FFR 0.83 Post procedure angiography showed no apparent coronary complications. Arterial Closure: TR band Summary: 1. Severe 80-90% apical LAD disease 2. Moderate non-obstructive proximal-mid LAD (FFR 0.83). 3. Mild-moderate multivessel disease - 30-40% proximal OM1, mid circumflex, mid RCA 4. Borderline left sided filling pressures. 5. Borderline pulmonary hypertension 6. Preserved cardiac output (Doreen 5.3). Recommendations: Feel patient's dyspnea likely multifactorial in the setting of lung disease, HFpEF, AF and small vessel CAD. Distal LAD disease is low risk involving small vessel at the apex. Recommend trial of additional antianginal therapy, start Imdur. If persistent symptoms could consider POBA +/- stent to LAD Continue maintenance lasix. Will consider AF cardioversion as an outpatient. Hemodynamics Rest Ao:: 111/69/88 Final Ao: 102/68/84 LV: -- Recommendations Recommendations: None Specimens Specimens: None Radiation Exposure (mGy) 3722 Contrast (mls) 95 Fluids (cc crystalloids) Fluids (cc crystalloids): 105 Drains Drains: none Anesthesia moderate Procedural Complication(s) None Disposition PCU
[2018-10-10] MEDS ORDERED: ONDANSETRON INJ 2 MG/ML 2 ML VIAL IV PRN (12:36)
[2018-10-10] MEDS ORDERED: ISOSORBIDE MONO EXTENDED REL 30 MG TABCR PO ONE (12:39)
[2018-10-10] MEDS ORDERED: SODIUM CHLORIDE 0.9% 250 ML IV SCH (12:45)
--- NOTE | 2018-10-10 14:38 | Infectious Disease Progress Nt ---
Date of Service October 10, 2018 Assessment & Plan (1) UTI (urinary tract infection): Patient with E. coli urinary tract infection with good clinical response to IV ceftriaxone. Patient can transition to oral antibiotics tomorrow with cefdinir 300 mg twice daily to complete 10 days of therapy. (2) Escherichia coli infection: Subjective Patient seen in follow-up for E. coli urinary tract infection. Now status post cardiac catheterization and stenting. Patient feeling better, less short of breath. No fever. Blood cultures have been negative. Review of Systems Review of Systems: All systems reviewed & are unremarkable except as noted in HPI & below Physical Exam Constitutional: WD/WN, vitals as above comfortable; no acute distress Eyes: PERRL, conjunctivae normal, anicteric sclerae ENMT: external ear and nose normal, oropharynx normal Neck: trachea midline, no thyromegaly neck nontender Respiratory: normal respiratory effort, lungs clear to auscultation normal percussion; does not use accessory muscles Cardiovascular: Rate/Rhythm: regular rate and regular rhythm Heart Sounds: normal S1 and normal S2; no gallop, no murmur and no cardiac rub Vessels: normal peripheral pulses; no JVD Gastrointestinal (Abdomen): normal bowel sounds, soft, nontender, no hepatosplenomegaly Musculoskeletal: no cyanosis or clubbing, extremities motor strength 5/5 Spine: thoracic spine normal to inspection and lumbar spine normal to inspection; no cervical spinal tenderness Skin: no rashes, warm and dry normal turgor; no lesions Neurologic: patellar DTR's 2+ bilat, sensation intact no focal motor deficits Psychiatric: A+Ox3, euthymic affect Orientation: cooperative Lymphatic: no cervical or axillary lymphadenopathy no inguinal lymphadenopathy Results & Data Vital Signs (Past 12 Hours) Vital Signs Temp Pulse Pulse Resp BP BP Pulse Ox 10/10/18 13:51 100 H 143/90 H 10/10/18 13:16 109 H 24 130/82 10/10/18 13:02 104 H 10/10/18 13:00 103 H 22 145/69 H 98 10/10/18 12:46 95 H 19 115/93 96 10/10/18 12:30 102 H 16 120/84 95 10/10/18 12:15 104 H 22 121/77 98 10/10/18 12:12 104 H 17 98 10/10/18 07:59 36.5 C 105 H 22 110/84 97 10/10/18 07:35 102 H 10/10/18 03:58 36.4 C L 80 22 136/83 98 Laboratory Results BMP 10/10/18 06:52 Sodium 136 Potassium 3.4 L Chloride 93 L Carbon Dioxide 37 H BUN 64 H Creatinine 1.66 H Glucose 76 Calcium 9.8 Liver Function 10/10/18 Range/Units 06:52 Total Bilirubin 0.4 (0.2-1) mg/dl AST 17 (15-37) U/L ALT 25 (12-78) U/L Alkaline Phosphatase 60 (45-117) U/L Albumin 3.6 (3.4-5.0) gm/dl Diagnostic Findings Microbiology 10/04/18 22:19 Blood Aerobic Blood Culture - Final No growth in Aerobic bottle after 5 days. 10/04/18 22:19 Blood Anaerobic Blood Culture - Final No growth in Anaerobic bottle after 5 days. 10/04/18 22:25 Blood Aerobic Blood Culture - Final No growth in Aerobic bottle after 5 days. 10/04/18 22:25 Blood Anaerobic Blood Culture - Final No growth in Anaerobic bottle after 5 days. 10/05/18 16:33 Blood Aerobic Blood Culture - Preliminary No growth in Aerobic bottle after 48 hours. 10/05/18 16:33 Blood Anaerobic Blood Culture - Preliminary No growth in Anaerobic bottle after 48 hours. 10/05/18 16:41 Blood Aerobic Blood Culture - Preliminary No growth in Aerobic bottle after 48 hours. 10/05/18 16:41 Blood Anaerobic Blood Culture - Preliminary No growth in Anaerobic bottle after 48 hours. 10/04/18 21:53 Urine,Clean Catch Urine Culture - Final Escherichia coli PG Care Time/CCT Total # of Minutes Spent Total Time Spent with Patient: Total time spent is greater than 50% in coordination of care (as documented) at patient's floor/unit and/or counseling patient: (1) UTI (urinary tract infection) Hematuria presence: without hematuria Urinary tract infection type: site unspecified Qualified Code(s): N39.0 - Urinary tract infection, site not specified
--- NOTE | 2018-10-10 17:01 | Hospitalist Progress Note ---
Date of Service October 10, 2018 Assessment & Plan (1) Atrial fibrillation, rapid: Status post cardiac catheterization by Dr. Naranjo. Tolerated procedure well . Continue PCU . Findings 1. Severe 80-90% apical LAD disease 2. Moderate non-obstructive proximal-mid LAD (FFR 0.83). 3. Mild-moderate multivessel disease - 30-40% proximal OM1, mid circumflex, mid RCA 4. Borderline left sided filling pressures. 5. Borderline pulmonary hypertension 6. Preserved cardiac output (Doreen 5.3). We will follow-up with recommendation Distal LAD disease is low risk involving small vessel at the apex. Recommend trial of additional antianginal therapy, start Imdur. If persistent symptoms could consider POBA +/- stent to LAD Continue maintenance lasix. Will consider AF cardioversion as an outpatient. DVT prophylaxis as above Full code (2) CHF (congestive heart failure): Continue furosemide 40 mg p.o. every morning Replenish K I/O -1200 mls Strict in and out Daily weight Continue monitoring Replenish electrolytes DVT prophylaxis and A. fib Plan to restart warfarin tomorrow (3) UTI (urinary tract infection): BPH with LUTS/UTI- He was given Zosyn 4.5 g IV in the ED. Then ceftriaxone 1 g IV daily and when he spiked fever despite of receiving Ceftriaxone , started Imipenam Cilastatine to cover for ESBL. Ucx positive for gram negative bacillus identified as E.Coli pansensitive. consulted and he recommended to continue with ceftriaxone 2 g every 24 hours and stop Linezolid and imipenem cilastatin. On the discharge patient should be switched to cefdinir 300 mg twice a day and complete therapy of 10 days. Continue tamsulosin 0.4 mg at bedtime (4) Background diabetic retinopathy associated with type 2 diabetes mellitus: Place on Accu-Cheks before meals and at bedtime with NovoLog coverage per scale. Continue management per pharmacy. (5) Coronary atherosclerosis of [place] coronary vessel: See above (6) Dyslipidemia: Continue rosuvastatin 5 mg p.o. daily and fenofibrate 48 mg daily. (7) Hypertension: See above (8) Enlarged prostate without lower urinary tract symptoms (luts): See above (9) Vitamin B12 deficiency: Continue B12 supplement 100 mcg daily (10) H/O aortic valve replacement: Noted (11) Stage III chronic kidney disease: Follow serial laboratories (12) Neuropathy in diabetes: Continue pregabalin 150 mg p.o. 3 times daily (13) Type 2 diabetes mellitus, with long-term current use of insulin: As above. Subjective She is seen and examined at the bedside. N.p.o. for cardiac catheterization today because stress test was positive. Overall patient is improving. Follow- up ID and cardiology recommendations. Patient denies fever chills chest pain shortness of breath abdominal pain frequency and urgency.Blood cultures have been negative. Review of Systems Review of Systems: All systems reviewed & are unremarkable except as noted in HPI & below Physical Exam Constitutional: WD/WN, vitals as above well developed Eyes: PERRL, conjunctivae normal, anicteric sclerae ENMT: external ear and nose normal, oropharynx normal Neck: trachea midline, no thyromegaly Respiratory: normal respiratory effort, lungs clear to auscultation + respiratory distress (Improving) Auscultation: + wheezes (Improving) Cardiovascular: Rate/Rhythm: + irregularly irregular Chest (Breasts): normal inspection/palpation of breasts Gastrointestinal (Abdomen): normal bowel sounds, soft, nontender, no hepatosplenomegaly Musculoskeletal: no cyanosis or clubbing, extremities motor strength 5/5 Entrance of cardiac catheter clean dry and intact no issues. Skin: no rashes, warm and dry Neurologic: patellar DTR's 2+ bilat, sensation intact Psychiatric: A+Ox3, euthymic affect Genitourinary: no testicular masses, no penis abnormality Lymphatic: no cervical or axillary lymphadenopathy Results & Data Vital Signs (Past 12 Hours) Vital Signs Temp Pulse Pulse Resp BP BP Pulse Ox 10/10/18 15:40 95 H 10/10/18 14:21 93 H 103/71 10/10/18 13:51 100 H 143/90 H 10/10/18 13:16 109 H 24 130/82 10/10/18 13:02 104 H 10/10/18 13:00 103 H 22 145/69 H 98 10/10/18 12:46 95 H 19 115/93 96 10/10/18 12:30 102 H 16 120/84 95 10/10/18 12:15 104 H 22 121/77 98 10/10/18 12:12 104 H 17 98 10/10/18 07:59 36.5 C 105 H 22 110/84 97 10/10/18 07:35 102 H PG Care Time/CCT Total # of Minutes Spent Total Time Spent with Patient: Total time spent is greater than 50% in coordination of care (as documented) at patient's floor/unit and/or counseling patient: (1) CHF (congestive heart failure) Heart failure chronicity: unspecified Heart failure type: unspecified Qualified Code(s): I50.9 - Heart failure, unspecified (2) UTI (urinary tract infection) Hematuria presence: without hematuria Urinary tract infection type: site unspecified Qualified Code(s): N39.0 - Urinary tract infection, site not specified
[2018-10-10] MEDS: Heparin Adult STANDARD Wt-Based Dextrose 5% 25,000 units/500 mL IV SCH (19:35)
--- NOTE | 2018-10-10 20:31 | CT Scan Report ---
CT head/brain wo con CT DOSE: 614.27 mGy.cm HISTORY: Mental status change AMS TECHNIQUE: Multiaxial CT images of the head were performed without the use of intravenous contrast. A dose lowering technique was utilized adhering to the principles of ALARA. Comparison: 08/08/2012 Findings: The paranasal sinuses and mastoid air cells are clear. Slightly progressive atrophy and chr onic small vessel change compared to the prior study. Potential subacute left posterior frontal infarct. No evidence for acute intracranial hemorrhage. Impression: 1. Possible subacute infarct posterior left frontal lobe. 2. Slightly progressive chronic small vessel change throughout both cerebral hemispheres compared to the prior study. 3. No acute intracranial hemorrhage. The above report was generated using voice recognition software. It may contain grammatical, syntax or spelling errors. Electronically signed by: Flash Milian M.D. 10/10/2018 8:29 PM
[2018-10-10] MEDS: TAMSULOSIN HCL 0.4 MG CAP PO SCH (20:38)
[2018-10-10] MEDS: CEFDINIR 300 MG CAP PO SCH (20:39)
[2018-10-10] MEDS ORDERED: PHARMACIST DISCHARGE MED REC CONSULT PRN (20:54)
[2018-10-10] MEDS ORDERED: ASPIRIN 300 MG SUPP PR STA (20:54)
[2018-10-10] MEDS ORDERED: OPTIRAY 320 125ml IV PRN (21:37)
--- NOTE | 2018-10-10 21:57 | CT Scan Report ---
CT angio head w con HISTORY: Mental status change ?CVA TECHNIQUE: Multiaxial CT angiography of the head was performed IV contrast: None. Maximum intensit y projection images were also obtained. A dose lowering technique was utilized adhering to the princ iplTania. COMPARISON: CT brain same date FINDINGS: Visualized intracranial internal carotid arteries, distal vertebral arteries, and basilar a rtery are widely patent. There is no significant stenosis, occlusion, or aneurysm seen within the mitra ateral ACAs, MCAs, or relocation specialist. IMPRESSION: No significant stenosis, occlusion, or aneurysm within the [place]. The above report was generated using voice recognition software. It may contain grammatical, syntax or spelling errors. Electronically signed by: Flash Milian M.D. 10/10/2018 9:56 PM
[2018-10-10 22:01] LABS: Albumin Globulin Ratio 0.9 (0.9-2); Albumin Level 3.4 gm/dl (3.4-5.0); BUN Creatinine Ratio 30.8 (10-20); Bilirubin,Total 0.4 mg/dl (0.2-1); Calcium 9.6 mg/dl (8.5-10.1); Creatinine Clr Calc Pharmacy 29.6 ml/min; Est GFR (African American) 28.5; Est GFR (Non-African American) 24.6; Globulin 3.8 gm/dl (2.5-4.0); Potassium 3.9 mmol/L (3.5-5.1); Total Protein 7.2 gm/dl (6.4-8.2)
--- NOTE | 2018-10-10 22:03 | CT Scan Report ---
CT angio neck with con HISTORY: Stroke. Mental status change. ?CVA TECHNIQUE: Multiaxial CT angiography of the neck was performed IV contrast: 100 cc All measurements were calculated based on NASCET criteria. Maximum intensity projection images were also obtained. A dose lowering technique was utilized adhering to the principles of ALARA. COMPARISON STUDY: None. FINDINGS: The aortic arch and proximal great vessels are widely patent. There is no significant sten osis, occlusion, or dissection identified within the bilateral common carotid, internal carotid, or v ertebral arteries. Mild plaque formation left carotid bifurcation. No significant stenosis. IMPRESSION: No significant stenosis, occlusion, or dissection identified within the carotid or vertebral arteries . Mild plaque formation left carotid bifurcation. The above report was generated using voice recognition software. It may contain grammatical, syntax or spelling errors. Electronically signed by: Flash Milian M.D. 10/10/2018 10:01 PM
[2018-10-10] MEDS: INSULIN GLARGINE SOLOSTAR 100 UNITS/ML 3 ML PEN SC SCH (22:10)
[2018-10-10] MEDS ORDERED: Heparin IV Low Dose *NO* Bolus IV ONE (22:10)
[2018-10-10] MEDS: HEPARIN SODIUM/DEXTROSE 25,000 UNITS/500 ML BAG IV SCH (22:30)
[2018-10-10 22:37] LABS: Beta-Hydroxybutyrate 1.72 mg/dl (0.2-2.81)
[2018-10-10] MEDS: METOPROLOL TARTRATE 1 MG/ML VIAL IV PRN (23:24)
--- NOTE | 2018-10-11 01:15 | Progress Note ---
Date of Service October 11, 2018 Subjective Briefly, patient is a 68yo C male with history of persistent AF, UTI, CHF, HTN, presenting with SOB. Found to have a positive stress test. He was taken to the cytology laboratory manager today for diagnostic catheterization which revealed distal LAD disease and mild-moderate non-obstructive CAD. No intervention. Medical management recommended. Patient returned to the unit in stable condition. I was called by nurse at approximately 20:00 due to concern for altered mental status. Nurse states the patient is unable to answer simple questions, he is using inappropriate words and repeating himself, not following commands. She also noted a slight right facial droop. Stat CT of the head ordered, results below. Last normal at 17:30 On physical exam the patient is afebrile, tachycardic otherwise hemodynamically stable, awake and alert, oriented x 0 General: patient repeating his in response to all questions. non-toxic Skin: wrist with occlusive dressing, no bleeding/hematoma, no rash HEENT: NC/AT, PERRL, EOMI, MMM, neck supple, slight right facial droop Heart: +S1/S2, irregularly irregular, tachycardic, no m/r/g Lungs: CTA, no rales/rhonchi/wheezes Abd: +BS, soft, NT/ND Ext: no edema Neuro: AA&O x 0, speech clear, inappropriate, patient with repetitive speech - answering his for all questions, following commands, CN with right facial droop, sensation intact to light touch, MS in RLE diminished, patient with occasional myoclonic jerks CT Head with possible subacute infarct posterior left frontal lobe CMP and Ammonia ordered Hyperglycemic at 302 Assessment/Plan: 68yo C male with acute change in neurological status. Suspect acute CVA. ?ischemic, cardioembolic in setting of AF, recent catheterization. -Will order CTA head and neck -Order MRI brain -Neuro checks, dysphagia screening, NPO -Neurology consult in AM Code Stroke called - case discussed with [facility] [place] florist supplies salesperson. Administration of tPA deferred secondary to findings on CT head consistent with subacute infarct. CT head, CTA head and neck reviewed by Neurologist. Patent vasculature - no large occlusion that would warrant mechanical intervention. -Resume heparin gtt - low dose, no bolus, target PTT 50 -70 -Maintain normotension - Blood pressure < 180mmHg Results & Data Vital Signs (Past 12 Hours) Vital Signs Temp Pulse Pulse Resp BP BP Pulse Ox 10/11/18 00:54 36.4 C L 86 19 124/78 97 10/10/18 23:24 132 H 126/91 10/10/18 19:54 36.5 C 75 18 120/66 96 10/10/18 15:40 95 H 10/10/18 14:21 93 H 103/71 10/10/18 13:51 100 H 143/90 H 10/10/18 13:16 109 H 24 130/82 PG Care Time/CCT Total # of Minutes Spent Total Time Spent with Patient: Total time spent is greater than 50% in coordination of care (as documented) at patient's floor/unit and/or counseling patient:
[2018-10-11] MEDS ORDERED: INSULIN ASPART 100 UNITS/ML 3 ML PEN SC ONE ×2 (02:00→08:00)
[2018-10-11] MEDS: METOPROLOL TARTRATE 1 MG/ML VIAL IV PRN ×2 (03:04→12:31)
[2018-10-11 05:03] LABS: Hematocrit (blood only) 43.5 % (42-52); Hemoglobin 15.5 g/dL (14.0-18.0); Mean Corpuscular Hemoglobin 30.5 pg (25-34); Mean Corpuscular Hgb Conc 35.6 g/dL (32-36); Mean Corpuscular Volume 85.5 fL (80-100); Mean Platelet Volume 10.6 fL (7.4-10.4); Platelet Count 349 K/uL (130-400); RDW Coefficient of Variation 14.3 % (11.5-14.5); RDW Standard Deviation 44.4 fL (36.4-46.3); Red Blood Count 5.09 M/uL (4.7-6.1); White Blood Count 27.17 K/uL (4.8-10.8)
[2018-10-11 05:05] LABS: INR 1.3 (0.9-1.1); Partial Thromboplastin Time 28.4 Seconds (21.0-31.0)
[2018-10-11 05:12] LABS: Albumin Level 3.5 gm/dl (3.4-5.0); Calcium 9.6 mg/dl (8.5-10.1); Creatinine Clr Calc Pharmacy 27.4 ml/min; Est GFR (African American) 25.9; Est GFR (Non-African American) 22.4; Potassium 3.7 mmol/L (3.5-5.1)
[2018-10-11 05:15] LABS: Albumin Globulin Ratio 0.9 (0.9-2); Bilirubin,Total 0.4 mg/dl (0.2-1); Total Protein 7.5 gm/dl (6.4-8.2)
[2018-10-11] MEDS ORDERED: HEPARIN IV BOLUS 4,500 UNITS in SYRINGE 0 ML IV ONE (05:30)
[2018-10-11] MEDS: INSULIN ASPART 100 UNITS/ML 3 ML PEN SC SCH ×4 (05:39→20:56)
[2018-10-11 06:49] LABS: iSTAT Arterial Blood Gas HCO3 38 meg/L (19-24); iSTAT Arterial Blood Gas pCO2 61 mmHg (35-46); iSTAT Arterial Blood Gas pH 7.41 (7.35-7.45); iSTAT Arterial Blood Gas pO2 96 mmHg (80-95); iSTAT Carbon Dioxide > 40 mEq/l (24-31)
[2018-10-11 06:49] LABS: iSTAT Venous Carbon Dioxide > 40 mEq/l (24-31)
[2018-10-11 06:49] LABS: iSTAT Arterial Blood Gas HCO3 40 meg/L (19-24); iSTAT Arterial Blood Gas pCO2 60 mmHg (35-46); iSTAT Arterial Blood Gas pH 7.43 (7.35-7.45); iSTAT Arterial Blood Gas pO2 34 mmHg (80-95); iSTAT Carbon Dioxide > 40 mEq/l (24-31)
--- NOTE | 2018-10-11 07:25 | Magnetic Resonance Report ---
MR brain wo con CLINICAL HISTORY: 68 years-old Male presenting with recent cardiac catheterization, strokelike sympto ms,?CVA. TECHNIQUE: Multisequence, multiplanar MR imaging of the brain was performed without the use of intrav enous contrast. IV contrast: None. COMPARISON: Noncontrast CT head performed the previous day. FINDINGS: Localizer images: Unremarkable. Normal midline sagittal structures. Proportional ventricular and sulcal prominence, likely age-relate d parenchymal volume loss. Restricted diffusion in the left frontal lobe extending inferiorly to invo lve a minimal portion of the insular cortex. This involves less than one third of the left MCA territ ory. There is also a punctate acute lacunar infarct in the right cerebellar hemisphere. Periventricul ar and subcortical white matter T2/FLAIR hyperintensity, nonspecific but likely indicative of chronic small vessel ischemic change. No mass effect or midline shift. No extra-axial fluid collection. T2 skull base flow voids preserved. Bone marrow signal intensity within the calvarium within normal limits. IMPRESSION: 1. Acute left MCA territory distribution infarct predominantly involving the left frontal lobe. This finding was discussed with nurse Atkinson by Dr. Cutler on 10/11/2018 1:39 AM. 2. Punctate acute lacunar infarct in the right cerebellar hemisphere. Electronically signed by: Kal Llanes M.D. 10/11/2018 7:23 AM
--- NOTE | 2018-10-11 08:16 | Neurology Consultation ---
Date of Consultation October 11, 2018 Assessment & Plan (1) Acute embolic stroke: (2) AF (atrial fibrillation): (3) Hypertension: (4) Diabetes mellitus type 2, controlled: (5) Diabetic peripheral neuropathy associated with type 2 diabetes mellitus: Patient had the acute onset of speech and language problems as well as some right-sided weakness with last evening following a cardiac catheterization procedure earlier in the day, off anticoagulation. MRI of the brain shows a moderate-sized left posterior frontal acute CVA and a punctate acute right cerebellar hemispheric CVA. These, taken together along with the unremarkable CT angiography of the head and neck would suggest embolic stroke. According to nursing records the patient was off anticoagulation after the cardiac catheterization until the time of his event last evening and not restarted until 2229. He was also given aspirin. On examination the patient has a predominant motor/expressive aphasia with some dysarthria. He may have mild receptive aphasia but is not as significant as the motor/expressive component. Also he has some mild right-sided weakness. Overall, I would consider him an NIH stroke scale of 7. Patient has multiple risk factors for ischemic stroke including hypertension, diabetes, dyslipidemia, and sleep apnea. His blood pressure and lipids are fairly well controlled but he still has elevated glucose. Patient also has a diabetic polyneuropathy which is stable. Recommendations: 1. Continue anticoagulation to prevent embolic stroke. He will be converted to warfarin. 2. Continue 81 milligram aspirin tablet daily. 3. Physical, occupational, and speech therapy consults. Evaluate speech and swallowing and increase the strength and gait training. Increase activity as able. 4. Otherwise, I have no additional neurologic testing or treatment recommendations to make at this time. Overall, I spent a total of 70 minutes with this case including review of records, review of MRI film, direct evaluation the patient at bedside, and discussing the case with the patient and his RN at bedside along with Dr. Braga, including differential diagnosis and treatment options. History of Present Illness Reason for Consultation: Patient is a 68-year-old, who I was asked to see at the request of Dr. Gomes , for neurologic consultation regarding stroke Requesting Physician: Dr. Gomes Attending Physician: Stephon Braga MD History of Present Illness This patient has a history of hypertension, type 2 insulin dependent diabetes (with retinopathy and polyneuropathy, dyslipidemia, sleep apnea, and persistent atrial fibrillation with coronary artery disease and congestive heart failure. Patient was admitted on October 04 with confusion, shortness of breath, fever, chills, and urinary frequency. He was discovered to have an E coli UTI and was put on IV ceftriaxone. He is being converted to oral antibiotics and is followed by Dr. Fonseca, infectious Disease. On October 10, anticoagulation was discontinued and he underwent a cardiac catheterization procedure by Dr. Naranjo. It showed 80-90 percent lad stenosis and other lesser stenoses as reported. Patient did well during the procedure, but received no anticoagulation post procedure. Approximately 1999 the patient was noted to have confusion inappropriate word finding. There was a slight right facial droop and a stroke alert was called. TPA was considered but not given because CT scan of the head showed a significant sized left posterior frontal acute/subacute stroke. CT angiography of the head neck were unremarkable with no significant stenoses. White count was elevated at 27 and BUN and creatinine were elevated as before. Glucose was 302 and sodium was decreased. Heparin was restarted at 2230 and the patient was given a 325 milligram aspirin rectally. He had no new events overnight. This morning he has no complaint of pain or headache. He is not dizzy has no new numbness. Blood pressure is 92/58 and he is in persistent atrial fibrillation with a rate ranging from the 120s to 150s overnight into this morning. Allergies Allergy/AdvReac Type Severity Reaction Status Date / Time No Known Allergies Allergy Unverified 10/04/18 23:33 Home Medications Home Medications Medication Instructions Recorded Confirmed Type insulin aspart (U-100) 100 unit/mL 30 units SUBCUT TIDM #3 ml 08/12/18 10/10/18 History (3 mL) subcutaneous pen omega-3 fatty acids 1,250 mg 1,250 mg PO DAILY 08/12/18 10/10/18 History capsule fenofibrate nanocrystallized 48 mg 48 mg PO DAILY #90 tab 08/29/18 10/10/18 History tablet warfarin 3 mg tablet 3 mg PO DAILY #90 tab 08/29/18 10/10/18 History albuterol sulfate HFA 90 1 - 2 puffs INHALATION Q4H PRN gm 09/14/18 10/10/18 History mcg/actuation aerosol inhaler furosemide 20 mg tablet 40 mg PO DAILY tab 09/14/18 10/10/18 History fluticasone furoate 100 1 puffs INH DAILY #30 ea 09/16/18 10/10/18 Rx mcg/actuation blister powder for inhalation rosuvastatin 5 mg tablet 5 mg PO DAILY #30 tab 09/21/18 10/10/18 Rx cholecalciferol (vitamin D3) 1,000 1,000 units PO DAILY tab 10/04/18 10/10/18 History unit (25 mcg) tablet cyanocobalamin (vit B-12) 100 mcg 100 mcg PO DAILY tab 10/04/18 10/10/18 History tablet diltiazem HCl [Cartia XT] 180 mg PO BID 10/04/18 10/10/18 History insulin degludec [Tresiba 60 unit SUBCUT HS 10/04/18 10/10/18 History FlexTouch U-200] pregabalin 150 mg capsule 150 mg PO TID #270 cap 10/04/18 10/10/18 Rx tamsulosin 0.4 mg capsule 0.8 mg PO HS cap 10/04/18 10/10/18 History Patient History Medical History AF (atrial fibrillation) (Acute) Abdominal aortic aneurysm dissection (Acute) Abnormal diffusion capacity determined by pulmonary function test (Acute) Atrial flutter (Acute) BPH (benign prostatic hyperplasia) (Acute) Background diabetic retinopathy associated with type 2 diabetes mellitus (Acute) Bilateral renal cysts (Acute) Calculus of ureter (Acute 11/30/12) Coronary atherosclerosis of [place] coronary vessel (Acute 11/30/12) Chronic low back pain (Acute) Complex sleep apnea syndrome (Acute) Congestive heart failure (Acute) Diabetes mellitus type 2, controlled (Acute) Diabetic peripheral neuropathy associated with type 2 diabetes mellitus (Acute) Diverticulosis (Acute) Dysesthesia (Acute) Dyslipidemia (Acute) Enlarged prostate without lower urinary tract symptoms (luts) (Acute) Hypertension (Acute) Interstitial lung disease (Acute) Intervertebral disc disease (Acute) Joint pain, knee (Acute) Kidney stone on left side (Acute) Loss of protective sensation of skin of foot (Acute) Lumbar back pain (Acute) Neuropathy in diabetes (Acute 11/30/12) Obesity (Acute) Restrictive lung disease (Acute) SOBOE (shortness of breath on exertion) (Acute) Skin change (Acute) Stage III chronic kidney disease (Acute) 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 (Acute) Type 2 diabetes mellitus, with long-term current use of insulin (Acute) Vitamin B12 deficiency (Acute) Vitamin D deficiency (Acute) Surgical History Status post mitral valve annuloplasty (Acute) History of mitral valve replacement History of shoulder surgery History of surgical removal of pilonidal cyst Family History Mother Diabetes Colon cancer Grandmother Multiple sclerosis Father Coronary heart disease Diabetes Myocardial infarction Grandfather Stroke Sister Diabetes Hypertension Brother Hypertension Diabetes Son Depression Social History Preferred Language: Slovenian Communication Ability: Effective Visual Impairment: No Limitations Hearing Ability: Normal Mental Retardation Nurse Required: No Beliefs That Will Affect Care: None marital status: Current Living Situation: Spouse and Family current occupational status: retired current occupation: Former [employer] Feels Safe at Home: Yes Smoking Status: Never smoker Hx Alcohol Use: No Hx Substance Use: No Childhood Exposure to Second-Hand Smoke: No Dental Care, Regularly: No Physical Activity Frequency: Does not Exercise Seatbelt Use: always Sunscreen Use: No Review of Systems Review of Systems: Review of systems is somewhat difficult in lieu of his speech/language issues. Constitutional: + fatigue and + weakness; no fever Eyes: no diplopia, no eye pain and no worsening vision Ear, Nose, Mouth, Throat: no ear pain, no tinnitus, no hearing loss, no dizziness and no dysphagia Respiratory: no cough and no dyspnea Cardiovascular: no chest pain, no palpitations and no lightheadedness Gastrointestinal: no abdominal pain, no nausea and no vomiting Genitourinary: no dysuria and no urinary incontinence Musculoskeletal: no back pain, no neck pain, no radicular pain, no joint pain and no myalgia Integumentary: no rash and no lesions Neurologic: + gait abnormality, + localized weakness, + generalized weakness, + abnormal speech and + confusion; no tingling, no numbness, no tremor(s), no abnormal movements, no headache(s) and no memory loss Psychiatric: + difficulty concentrating and + confusion; no depression, no irritability, no anxiety and no hallucinations Endocrine: + fatigue; no flushing Hematologic / Lymphatic: + easy bruising; no easy bleeding Allergy / Immunological: no urticaria and no problem reported Physical Exam Physical Exam: The patient is left-handed. The patient is awake, alert, and attentive. Speech is abnormal and he has some mild to moderate dysarthria but also some word-finding difficulties and expressive aphasia. He seems to comprehend well and there is no obvious receptive aphasia. He can name some objects and colors but not others. He can repeat phrases well has little spontaneous speech. Mentation and thought processes seem grossly intact, with orientation to person and place he thought he was 66 and could not name the month or year. He did pick out the year in a list of 3 consecutive years. Mood and affect seem normal appropriate otherwise. The discs are sharp with positive venous pulsations bilaterally. There are no exudates, hemorrhages, or blood vessel changes seen. Pupils are 4 mm bilaterally and reactive to light. Extraocular eye muscles are intact without nystagmus. Visual acuity and visual dorsey seem normal grossly to confrontation. There are no deficits to sensation in the face in all 3 distributions of the fifth cranial nerve bilaterally. Corneal reflexes are positive bilaterally. Facial strength was normal bilaterally although there may have been a slight right facial droop at the corner of the mouth compared to the left. Hearing seems normal to whisper and finger rub bilaterally. Palate moves well without asymmetry. There is normal sternocleidomastoid and trapezius (shoulder shrug) strength bilaterally. Tongue is midline with good strength bilaterally. Neck has a full range of motion without discomfort. There are no cervical bruits bilaterally. There are no cranial or ocular bruits. Heart is without murmur. He is doing persistent atrial fibrillation. Cervical, thoracic, and lumbar spine are nontender to palpation. Stance is difficult for him with eyes open and feet relatively close together and needs supportive 1. He wobbles. He needs the assistance of at least 1 for gait and will limp favoring the right leg. He is slow and cautious. With outstretched arms there is drift and proximal weakness on the right. There are no resting, postural, or action tremors. There is no ataxia with finger to nose testing. There is reasonable facility in the hands. No other abnormal involuntary movements are noted. Motor strength is 5/5 diffusely in the left upper extremity, both proximally and distally. Right upper extremity has some 4/5 strength proximally but seems fairly strong distally. Leg strength is 4/5 more proximally bilaterally and closer to 5/5 distally. The right leg may be slightly weaker than the left proximally. The limbs have good tone without rigidity or spasticity. There is no atrophy noted in the muscles. Muscle bulk is normal, there is no tenderness to palpation, no myotonia to percussion, and no fasciculations seen. Sensory examination is intact to touch and pin throughout all 4 limbs diffusely. Reflexes are 1/4 in the biceps, triceps, brachioradialis, and right quadriceps tendons bilaterally. The left quadriceps and both ankles are absent. There is no clonus bilaterally. Toes are downgoing with plantar stimulation bilaterally. Peripheral pulses are present and of normal quality distally in all 4 limbs. There is no peripheral edema noted in the limbs. Results & Data Vital Signs (Past 12 Hours) Vital Signs Temp Pulse Pulse Resp BP BP Pulse Ox 10/11/18 07:07 37.4 C 68 18 92/58 L 98 10/11/18 03:53 36.5 C 71 19 108/87 98 10/11/18 03:04 142 H 132/58 L 10/11/18 00:54 36.4 C L 86 19 124/78 97 10/10/18 23:24 132 H 126/91 Diagnostic Findings MR brain wo con CLINICAL HISTORY: 68 years-old Male presenting with recent cardiac cat heterization, strokelike symptoms,?CVA. TECHNIQUE: Multisequence, multiplanar MR imaging of the brain was performed without the use of intravenous contrast. IV contrast: None. COMPARISON: Noncontrast CT head performed the previous day. FINDINGS: Localizer images: Unremarkable. Normal midline sagittal structures. Proportional ventricular and sulcal prominence, likely age-related parenchymal volume loss. Restricted diffusion in the left frontal lobe extending inferiorly to involve a minimal portion of the insular cortex. This involves less than one third of the left MCA territory. There is also a punctate acute lacunar infarct in the right cerebellar hemisphere. Periventricular and subcortical white matter T2/FLAIR hyperintensity, nonspecific but likely indicative of chronic small vessel ischemic change. No mass effect or midline shift. No extra-axial fluid collection. T2 skull base flow voids preserved. Bone marrow signal intensity within the calvarium within normal limits. IMPRESSION: 1. Acute left MCA territory distribution infarct predominantly involving the left frontal lobe. This finding was discussed with nurse Atkinson by Dr. Cutler on 10/11/2018 1:39 AM. 2. Punctate acute lacunar infarct in the right cerebellar hemisphere. Electronically signed by: Kal Llanes M.D. 10/11/2018 7:23 AM PG Care Time/CCT Total # of Minutes Spent Total Time Spent with Patient: Total time spent is greater than 50% in coordination of care (as documented) at patient's floor/unit and/or counseling patient:
[2018-10-11] MEDS ORDERED: INSULIN HUMAN NPH SC ONE (10:00)
[2018-10-11] MEDS: CYANOCOBALAMIN (VITAMIN B-12) 100 MCG TABLET PO SCH (10:45)
[2018-10-11] MEDS: ROSUVASTATIN CALCIUM 5 MG TAB PO SCH (10:46)
[2018-10-11] MEDS: dilTIAZem HCL 180 MG CAPCR PO SCH (10:46)
[2018-10-11] MEDS: ASPIRIN 81 MG ECTAB PO SCH (10:47)
[2018-10-11] MEDS: CHOLECALCIFEROL 1,000 UNITS TAB PO SCH (10:47)
[2018-10-11] MEDS: predniSONE 20 MG TAB PO SCH (10:47)
[2018-10-11] MEDS: FENOFIBRATE NANOCRYSTALLIZED 48 MG TABLET PO SCH (10:47)
[2018-10-11] MEDS: CEFDINIR 300 MG CAP PO SCH ×2 (10:47→20:54)
[2018-10-11] MEDS: PREGABALIN 150 MG CAP PO SCH ×3 (10:53→20:53)
[2018-10-11] MEDS ORDERED: SODIUM CHLORIDE 0.9% 1000ML 1,000 ML IV SCH (12:34)
[2018-10-11 12:36] LABS: Partial Thromboplastin Time 54.7 Seconds (21.0-31.0)
--- NOTE | 2018-10-11 12:39 | Pharmacy Report ---
Pharmacy Glycemic Short Note 2 - Date of Service October 11, 2018 - Glycemic Short BSG Results (Last 24 hours): 10/10/18 10/10/18 10/10/18 16:18 20:12 20:13 Glucose POC Glucose 208 H 309 H* 304 H* 10/10/18 10/11/18 10/11/18 21:26 01:56 04:45 Glucose 302 H* 133 H POC Glucose 203 H 10/11/18 10/11/18 05:39 11:35 Glucose POC Glucose 120 H 118 H OUTPATIENT ANTIDIABETIC REGIMEN: * Tresiba 60 units SC HS * Insulin aspart 30-35 units SC TIDM * A1c = 5.9 % on 10/05/18 ASSESSMENT: Pt's BSGs decompensated yesterday evening. BSGs has high as 304mg/dL. Likely steroid induced. He was made NPO yesterday evening due to stroke like sx. He is now ordered a diet. AM prednisone was given. Lunch BSG at goal, 118mg/dL. Will provide NPH dose at dinner if he is hyperglycemic. PLAN FOR INPATIENT GLYCEMIC CONTROL: * Basal insulin * Lantus 60 units SQ HS * PRN 20 u NPH tonight with dinner if BSG >/=180mg/dL. Continue HS lantus scale. * Bolus insulin * NovoLog per scale ACHS or Q6hrs while NPO * Goal Range: Low 110 mg/dL - High 140 mg/dL * Correction Factor: 10 mg/dL/unit * Nutritional / Prandial insulin per carb ratio of 1 unit per 4 grams CHO consumed PLAN FOR DISCHARGE: * A1c 5.9%, continue home regimen as long as patient not experiencing hypoglycemia at home.
--- NOTE | 2018-10-11 12:47 | Hospitalist Progress Note ---
Date of Service October 11, 2018 Assessment & Plan (1) Atrial fibrillation, rapid: Status post cardiac catheterization by Dr. Naranjo. Patient had small stroke last night which affected his speech transitionally and patient speech is improving now. Patient appears to be mildly dehydrated. We will give bolus 500 cc of normal saline and 80 cc/h for another 500. Total 1000. Patient continued to be in A. fib's possibly due to mild dehydration. The new heparin drip. Dr. Naranjo recommended the diltiazem drip after fluid bolus and he will examine him as well. Continue PCU . Findings 1. Severe 80-90% apical LAD disease 2. Moderate non-obstructive proximal-mid LAD (FFR 0.83). 3. Mild-moderate multivessel disease - 30-40% proximal OM1, mid circumflex, mid RCA 4. Borderline left sided filling pressures. 5. Borderline pulmonary hypertension 6. Preserved cardiac output (Doreen 5.3). We will follow-up with recommendation Distal LAD disease is low risk involving small vessel at the apex. Recommend trial of additional antianginal therapy, start Imdur. If persistent symptoms could consider POBA +/- stent to LAD Continue maintenance lasix. Will consider AF cardioversion as an outpatient. DVT prophylaxis as above Full code (2) CHF (congestive heart failure): Continue furosemide 40 mg p.o. every morning Replenish K I/O -1200 mls Strict in and out Daily weight Continue monitoring Replenish electrolytes DVT prophylaxis and A. fib Continue aspirin 81 mg Warfarin bridge (3) UTI (urinary tract infection): BPH with LUTS/UTI- He was given Zosyn 4.5 g IV in the ED. Then ceftriaxone 1 g IV daily and when he spiked fever despite of receiving Ceftriaxone , started Imipenam Cilastatine to cover for ESBL. Ucx positive for gram negative bacillus identified as E.Coli pansensitive. consulted and he recommended to continue with ceftriaxone 2 g every 24 hours and stop Linezolid and imipenem cilastatin. Patient switched switched to cefdinir 300 mg twice a day and complete therapy of 10 days. Continue tamsulosin 0.4 mg at bedtime (4) Background diabetic retinopathy associated with type 2 diabetes mellitus: Place on Accu-Cheks before meals and at bedtime with NovoLog coverage per scale. Continue management per pharmacy. (5) Coronary atherosclerosis of [place] coronary vessel: See above (6) Dyslipidemia: Continue rosuvastatin 5 mg p.o. daily and fenofibrate 48 mg daily. (7) Hypertension: See above (8) Enlarged prostate without lower urinary tract symptoms (luts): See above (9) Vitamin B12 deficiency: Continue B12 supplement 100 mcg daily (10) H/O aortic valve replacement: Noted (11) Stage III chronic kidney disease: Follow serial laboratories (12) Neuropathy in diabetes: Continue pregabalin 150 mg p.o. 3 times daily (13) Type 2 diabetes mellitus, with long-term current use of insulin: As above. Subjective Patient is seen and examined at the bedside. This morning patient was drowsy but responses to questions and within the next several hours his condition significantly improved and his speech returned as well as he is right arm function. Patient was evaluated by speech therapy and she passed a swallow study speech therapist order a food for the patient. Patient blood pressure is on the lower side this morning and he will be given a bolus of 500 normal saline. This was discussed with Dr. Naranjo his auto transmission technician and he prefers to start patient on diltiazem drip if his A. fib's continue to be persistent in 120s to 140s. The patient is still under neurological check every 4 hours which he is doing very well. Patient patient is now alert oriented x3. Patient denies fever chills chest pain shortness of breath abdominal pain frequency and urgency weakness in his upper or lower extremities. Review of Systems Review of Systems: All systems reviewed & are unremarkable except as noted in HPI & below Physical Exam Constitutional: WD/WN, vitals as above well developed Eyes: PERRL, conjunctivae normal, anicteric sclerae ENMT: external ear and nose normal, oropharynx normal Neck: trachea midline, no thyromegaly Respiratory: normal respiratory effort, lungs clear to auscultation + respiratory distress (Improving) Auscultation: + wheezes (Improving) Cardiovascular: Rate/Rhythm: + irregularly irregular Chest (Breasts): normal inspection/palpation of breasts Gastrointestinal (Abdomen): normal bowel sounds, soft, nontender, no hepatosplenomegaly Musculoskeletal: no cyanosis or clubbing, extremities motor strength 5/5 Skin: no rashes, warm and dry Neurologic: patellar DTR's 2+ bilat, sensation intact Psychiatric: A+Ox3, euthymic affect Genitourinary: no testicular masses, no penis abnormality Lymphatic: no cervical or axillary lymphadenopathy Results & Data Vital Signs (Past 12 Hours) Vital Signs Temp Pulse Pulse Resp BP BP Pulse Ox 10/11/18 12:31 133 H 105/53 L 10/11/18 12:30 133 H 105/53 L 10/11/18 07:07 37.4 C 68 18 92/58 L 98 10/11/18 03:53 36.5 C 71 19 108/87 98 10/11/18 03:04 142 H 132/58 L 10/11/18 00:54 36.4 C L 86 19 124/78 97 PG Care Time/CCT Total # of Minutes Spent Total Time Spent with Patient: Total time spent is greater than 50% in coordination of care (as documented) at patient's floor/unit and/or counseling patient: (1) CHF (congestive heart failure) Heart failure chronicity: unspecified Heart failure type: unspecified Qualified Code(s): I50.9 - Heart failure, unspecified (2) UTI (urinary tract infection) Hematuria presence: without hematuria Urinary tract infection type: site unspecified Qualified Code(s): N39.0 - Urinary tract infection, site not specified
[2018-10-11] MEDS ORDERED: SODIUM CHLORIDE 0.9% 500 ML IV SCH ×2 (13:00→20:30)
[2018-10-11] MEDS ORDERED: dilTIAZem HCl 5 MG/ML 5 ML VIAL IV ONE (15:45)
[2018-10-11 15:57] LABS: Hemoglobin 14.6 g/dL (14.0-18.0); Mean Corpuscular Hemoglobin 30.2 pg (25-34); Mean Corpuscular Hgb Conc 35.6 g/dL (32-36); Mean Corpuscular Volume 84.9 fL (80-100); Mean Platelet Volume 10.5 fL (7.4-10.4); Platelet Count 255 K/uL (130-400); RDW Coefficient of Variation 14.5 % (11.5-14.5); RDW Standard Deviation 45.1 fL (36.4-46.3); Red Blood Count 4.83 M/uL (4.7-6.1); White Blood Count 27.34 K/uL (4.8-10.8)
[2018-10-11] MEDS: dilTIAZem HCl 125 MG in DEXTROSE 5% 100 ML IV SCH (16:25)
--- NOTE | 2018-10-11 16:27 | Cardiology Progress Note ---
Date of Service October 11, 2018 Assessment & Plan (1) Acute embolic stroke: -- LT frontal CVA post cardiac catheterization 2. AF with RVR 3. GRACIE 4. Small vessel CAD 5. Diastolic heart failure 6. Post mitral valve repair for severe mitral regurgitation 2007--mild MR on echo at [facility] 07/2018 7. Chronic infrarenal aortic dissection--found incidentally, seen by Dr. Keller 8. Interstitial lung disease CVA overnight post cardiac catheterization Per nursing some improvement in residual right sided weakness throughout day. Not taking POs and AF+RVR this morning off diltiazem. Negative more than 6 L over last 3 days with low right sided pressures on cath yesterday. New GRACIE this morning, suspect prerenal vs contrast induced -- Continued supportive care post CVA -- Diuretics on hold -- IV fluids for hypovolemia - would target a 1 L positive today -- Diltiazem drip as needed for rate control -- OK with HR in 110s -- Continue heparin infusion -- Aspirin, statin when taking POs -- Appreciate hospital medicine, neurology care. Subjective Patient confused, with focal weakness, aphasia overnight leading to stroke code. Found to have a LT frontal CVA on MRI. This morning mild residual right sided weakness. AOx1. Word finding difficulties. AF with RVR to 140s this AM. GRACIE with SCr up to 2.7 Review of Systems Review of Systems: All systems reviewed & are unremarkable except as noted in HPI & below Physical Exam Constitutional: + altered mental status Eyes: + anicteric sclerae Respiratory: normal respiratory effort, lungs clear to auscultation Cardiovascular: Rate/Rhythm: + tachycardic and + irregularly irregular Heart Sounds: no murmur Vessels: no JVD Extremities: no edema right radial artery access site ecchymosis. pulse intact. no hematoma Gastrointestinal (Abdomen): normal bowel sounds, soft, nontender, no hepatosplenomegaly Skin: no rashes, warm and dry Neurologic: + focal motor deficit (mild right sided weakness) Speech / Cognition: + abnormal speech Motor/Sensory: + pronator drift and + asterixis Cranial Nerves: PERRL, normal facial strength, tongue midline and normal hearing Psychiatric: Orientation: oriented to person Affect: euthymic affect Genitourinary: alicea in place with dark, reddish urine. Results & Data Vital Signs (Past 12 Hours) Vital Signs Temp Pulse Pulse Resp BP BP Pulse Ox 10/11/18 15:54 80 106/66 97 10/11/18 15:17 97.7 F 82 18 119/89 96 10/11/18 12:31 133 H 105/53 L 10/11/18 12:30 133 H 105/53 L 10/11/18 07:35 103 H 10/11/18 07:07 99.3 F 68 18 92/58 L 98 10/11/18 07:00 133 H PG Care Time/CCT Total # of Minutes Spent Total Time Spent with Patient: Total time spent is greater than 50% in coordination of care (as documented) at patient's floor/unit and/or counseling patient:
[2018-10-11] MEDS: WARFARIN SOD 3 MG TAB PO SCH (17:21)
[2018-10-11] MEDS: TAMSULOSIN HCL 0.4 MG CAP PO SCH (20:53)
[2018-10-11] MEDS: INSULIN GLARGINE SOLOSTAR 100 UNITS/ML 3 ML PEN SC SCH (20:55)
[2018-10-11 21:31] LABS: Appearance Urine Turbid (Clear); Bacteria Urine Automated Negative (Negative); Bilirubin Urine Negative (Negative); Blood Urine 3+ (Negative); Color Urine Orange; Epithelial Cell Urine Auto >30 /lpf (0-5); Glucose Urine UA Negative (Negative); Ketones Urine Negative (Negative); Leukocyte Esterase Urine 1+ (Negative); Nitrite Urine Negative (Negative); Protein Urine 3+ (Negative); Specific Gravity Urine 1.027 (1.000-1.030); Urobilinogen Urine Negative (Negative); WBC Urine Automated >30 /hpf (0-5)
[2018-10-11 21:56] LABS: RBC Urine Automated >30 /hpf (0-4); Renal Epithelial Cells Urine 0-5 /lpf (0-5)
[2018-10-11] MEDS: HEPARIN SODIUM/DEXTROSE 25,000 UNITS/500 ML BAG IV SCH (23:09)
[2018-10-11 23:46] LABS: Hematocrit (blood only) 39.2 % (42-52); Hemoglobin 14.2 g/dL (14.0-18.0); Mean Corpuscular Hemoglobin 30.8 pg (25-34); Mean Corpuscular Hgb Conc 36.2 g/dL (32-36); Mean Platelet Volume 11.3 fL (7.4-10.4); Platelet Count 233 K/uL (130-400); RDW Coefficient of Variation 14.6 % (11.5-14.5); RDW Standard Deviation 45.6 fL (36.4-46.3); Red Blood Count 4.61 M/uL (4.7-6.1); White Blood Count 23.04 K/uL (4.8-10.8)
[2018-10-12 05:27] LABS: Hematocrit (blood only) 43.2 % (42-52); Hemoglobin 15.2 g/dL (14.0-18.0); Mean Corpuscular Hemoglobin 30.3 pg (25-34); Mean Corpuscular Hgb Conc 35.2 g/dL (32-36); Mean Corpuscular Volume 86.1 fL (80-100); Mean Platelet Volume 11.4 fL (7.4-10.4); Platelet Count 225 K/uL (130-400); RDW Coefficient of Variation 14.7 % (11.5-14.5); RDW Standard Deviation 45.9 fL (36.4-46.3); Red Blood Count 5.02 M/uL (4.7-6.1); White Blood Count 18.49 K/uL (4.8-10.8)
[2018-10-12 05:40] LABS: Partial Thromboplastin Ratio 1.6; Partial Thromboplastin Time 42.2 Seconds (21.0-31.0)
[2018-10-12 05:44] LABS: Albumin Level 3.2 gm/dl (3.4-5.0); BUN Creatinine Ratio 30.6 (10-20); Calcium 8.8 mg/dl (8.5-10.1); Creatinine Clr Calc Pharmacy 21.5 ml/min; Est GFR (African American) 19.6; Est GFR (Non-African American) 16.9; Potassium 3.8 mmol/L (3.5-5.1)
[2018-10-12 05:47] LABS: Albumin Globulin Ratio 0.8 (0.9-2); Bilirubin,Total 0.4 mg/dl (0.2-1); Globulin 4.1 gm/dl (2.5-4.0); Total Protein 7.3 gm/dl (6.4-8.2)
[2018-10-12] MEDS ORDERED: HEPARIN IV BOLUS 3,000 UNITS in SYRINGE 0 ML IV ONE (06:00)
[2018-10-12] MEDS: INSULIN ASPART 100 UNITS/ML 3 ML PEN SC SCH ×5 (08:20→20:35)
[2018-10-12] MEDS: CYANOCOBALAMIN (VITAMIN B-12) 100 MCG TABLET PO SCH (08:21)
[2018-10-12] MEDS: FENOFIBRATE NANOCRYSTALLIZED 48 MG TABLET PO SCH (08:21)
[2018-10-12] MEDS: CHOLECALCIFEROL 1,000 UNITS TAB PO SCH (08:21)
[2018-10-12] MEDS: ASPIRIN 81 MG ECTAB PO SCH (08:21)
[2018-10-12] MEDS: predniSONE 20 MG TAB PO SCH (08:21)
[2018-10-12] MEDS: CEFDINIR 300 MG CAP PO SCH (08:21)
[2018-10-12] MEDS: ROSUVASTATIN CALCIUM 5 MG TAB PO SCH (08:22)
--- NOTE | 2018-10-12 08:25 | Urology Consultation ---
Date of Consultation October 12, 2018 Assessment & Plan (1) Gross hematuria: 68yo M with E.Coli UTI, indwelling catheter, on anticoagulation s/p CVA Hematuria is light with mild clots, has not required hand irrigation. H/H and VS stable. Cause is likely multifactorial including cystitis from concurrent UTI, alicea irritation, and anticoagulation. Discussed plan of care with duarte Mercado to hold off on further imaging and testing in this acute setting. We can discontinue catheter in 1-2 days if okay by primary service. We will see him as outpatient in 3-4 weeks, if hematuria persisting at that time, we will pursue hematuria workup which includes CT abd/pelvis and cystosco py. Thank you for allowing us to participate in the acute care of Mr. Babb. We will continue to monitor peripherally while inpatient. History of Present Illness Reason for Consultation: heamturia Requesting Physician: Dr Merino Attending Physician: Steve Merino History of Present Illness 68yo M with hx of afib, COPD, DM, s/p mitral valve surgery, BPH admitted on 10/05 with c/o shaking chills, dysuria and worsening SOB. He was found to be in afib with RVR, with an E. Coli UTI, which was treated by Dr. Fonseca with ceftriaxone then converted to cefdinir for total of 10d course. He also underwent cardiac catheterization with subsequent acute CVA on 10/10. He is currently on a heparin gtt. We have been consulted due to the recent development of hematuria via alicea c atheter, beginning yesterday. Alicea is patent, placed upon admission for I&Os, draining pink with mild, nonobstructing clots. He denies any previous urology evaluation. Never a smoker, no family hx of bladder, kidney or prostate cancer. He denies previous JN/PSA ever in his life. He takes tamsulosin 0.8mg for BPH Allergies Allergy/AdvReac Type Severity Reaction Status Date / Time No Known Allergies Allergy Unverified 10/04/18 23:33 Home Medications Home Medications Medication Instructions Recorded Confirmed Type insulin aspart (U-100) 100 unit/mL 30 units SUBCUT TIDM #3 ml 08/12/18 10/10/18 History (3 mL) subcutaneous pen omega-3 fatty acids 1,250 mg 1,250 mg PO DAILY 08/12/18 10/10/18 History capsule fenofibrate nanocrystallized 48 mg 48 mg PO DAILY #90 tab 08/29/18 10/10/18 History tablet warfarin 3 mg tablet 3 mg PO DAILY #90 tab 08/29/18 10/10/18 History albuterol sulfate HFA 90 1 - 2 puffs INHALATION Q4H PRN gm 09/14/18 10/10/18 History mcg/actuation aerosol inhaler furosemide 20 mg tablet 40 mg PO DAILY tab 09/14/18 10/10/18 History fluticasone furoate 100 1 puffs INH DAILY #30 ea 09/16/18 10/10/18 Rx mcg/actuation blister powder for inhalation rosuvastatin 5 mg tablet 5 mg PO DAILY #30 tab 09/21/18 10/10/18 Rx cholecalciferol (vitamin D3) 1,000 1,000 units PO DAILY tab 10/04/18 10/10/18 History unit (25 mcg) tablet cyanocobalamin (vit B-12) 100 mcg 100 mcg PO DAILY tab 10/04/18 10/10/18 History tablet diltiazem HCl [Cartia XT] 180 mg PO BID 10/04/18 10/10/18 History insulin degludec [Tresiba 60 unit SUBCUT HS 10/04/18 10/10/18 History FlexTouch U-200] pregabalin 150 mg capsule 150 mg PO TID #270 cap 10/04/18 10/10/18 Rx tamsulosin 0.4 mg capsule 0.8 mg PO HS cap 10/04/18 10/10/18 History Patient History Medical History AF (atrial fibrillation) (Acute) Abdominal aortic aneurysm dissection (Acute) Abnormal diffusion capacity determined by pulmonary function test (Acute) Atrial flutter (Acute) BPH (benign prostatic hyperplasia) (Acute) Background diabetic retinopathy associated with type 2 diabetes mellitus (Acute) Bilateral renal cysts (Acute) Calculus of ureter (Acute 11/30/12) Coronary atherosclerosis of ruby coronary vessel (Acute 11/30/12) Chronic low back pain (Acute) Complex sleep apnea syndrome (Acute) Congestive heart failure (Acute) Diabetes mellitus type 2, controlled (Acute) Diabetic peripheral neuropathy associated with type 2 diabetes mellitus (Acute) Diverticulosis (Acute) Dysesthesia (Acute) Dyslipidemia (Acute) Enlarged prostate without lower urinary tract symptoms (luts) (Acute) Hypertension (Acute) Interstitial lung disease (Acute) Intervertebral disc disease (Acute) Joint pain, knee (Acute) Kidney stone on left side (Acute) Loss of protective sensation of skin of foot (Acute) Lumbar back pain (Acute) Neuropathy in diabetes (Acute 11/30/12) Obesity (Acute) Restrictive lung disease (Acute) SOBOE (shortness of breath on exertion) (Acute) Skin change (Acute) Stage III chronic kidney disease (Acute) 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 (Acute) Type 2 diabetes mellitus, with long-term current use of insulin (Acute) Vitamin B12 deficiency (Acute) Vitamin D deficiency (Acute) Surgical History Status post mitral valve annuloplasty (Acute) History of mitral valve replacement History of shoulder surgery History of surgical removal of pilonidal cyst Family History Mother Diabetes Colon cancer Grandmother Multiple sclerosis Father Coronary heart disease Diabetes Myocardial infarction Grandfather Stroke Sister Diabetes Hypertension Brother Hypertension Diabetes Son Depression Social History Preferred Language: [place] Communication Ability: Effective Visual Impairment: No Limitations Hearing Ability: Normal [employer] Required: No Beliefs That Will Affect Care: None marital status: Current Living Situation: Spouse and Family current occupational status: retired current occupation: Former [employer] Feels Safe at Home: Yes Smoking Status: Never smoker Hx Alcohol Use: No Hx Substance Use: No Childhood Exposure to Second-Hand Smoke: No Dental Care, Regularly: No Physical Activity Frequency: Does not Exercise Seatbelt Use: always Sunscreen Use: No Review of Systems Review of Systems: Constitutional: Denies fever, chills, sweats, malaise Eyes: Denies problem reported ENMT: Denies dizziness Resp: Denies cough, Denies shortness of breath CV: Denies JVD GI: Denies nausea/vomiting : + Hematuria, Denies suprapubic or flank pain, dysuria, urgency, frequency MS: Denies swelling, stiffness Integ: Denies rash, erythema Neuro: Denies falls, weakness Psych: Denies behavior change Endo: Denies polyphagia, polydipsia Heme: Denies easy bleeding Physical Exam Constitutional: no acute distress and not ill appearing Eyes: no nystagmus ENMT: Ears: no hearing impairment Neck: trachea midline Respiratory: no respiratory distress and no cough Cardiovascular: Vessels: no JVD Chest (Breasts): Chest: normal inspection of chest Gastrointestinal (Abdomen): Inspection/Auscultation: abdomen not distended and no abdominal edema Percussion/Palpation: abdomen soft; abdomen nontender Musculoskeletal: Head/Neck/Chest: normocephalic and head atraumatic Skin: no rashes, warm and dry Neurologic: awake; not confused and not obtunded Psychiatric: Orientation: alert and oriented x 3 Eye Contact: good eye contact Affect: no depressed affect Genitourinary: bladder normal to inspection; no CVA tenderness alicea draining pink with mild clots Lymphatic: no lymphadenopathy and no lymphedema Results & Data Vital Signs (Past 12 Hours) Vital Signs Temp Pulse Resp BP Pulse Ox 10/12/18 07:08 36.7 C 101 H 20 108/75 95 10/12/18 03:54 36.4 C L 92 H 18 103/86 94 10/11/18 23:41 36.4 C L 94 H 19 136/79 98 10/11/18 22:07 88 115/87 98
[2018-10-12] MEDS: PREGABALIN 150 MG CAP PO SCH ×3 (08:26→20:30)
--- NOTE | 2018-10-12 08:45 | Pharmacy Report ---
Pharmacy Glycemic Short Note 2 - Date of Service October 12, 2018 - Glycemic Short BSG Results (Last 24 hours): 10/11/18 10/11/18 10/11/18 11:35 16:15 20:34 Glucose POC Glucose 118 H 170 H 262 H 10/12/18 10/12/18 05:14 07:10 Glucose 154 H POC Glucose 136 H OUTPATIENT ANTIDIABETIC REGIMEN: * Tresiba 60 units SC HS * Insulin aspart 30-35 units SC TIDM * A1c = 5.9 % on 10/05/18 CURRENT INPATIENT REGIMEN: * Basal insulin: Lantus Q HS per scale: 40 units if less than 120, 50 units if 120-180, 60 units if above 180 * Correctional Insulin: Novolog Correction per scale ACHS Goal Range: Low 110 mg/dL - High 140 mg/dL Correction Factor: 10 mg/dL/unit * Prandial insulin: Per carb ratio of 1 unit per 4 grams CHO consumed ASSESSMENT: * Glycemic control acceptable over the last 24 hrs with the exception of HS hyperglycemia, which may be steroid induced * Fasting BSG 136 this AM w/ 60 units Lantus on board. Will continue similar dose this evening per scale * Prednisone 20mg scheduled for this AM, but will then step down to 10mg tomorrow. Insulin doses may need adjusted tomorrow as a result. * Will continue current Novolog CF and CR order with the exception of giving larger dinnertime Novolog doses to prevent HS highs PLAN FOR INPATIENT GLYCEMIC CONTROL: * Basal insulin - no change * Lantus 60 units SQ HS * Bolus insulin * NovoLog per scale ACHS or Q6hrs while NPO * Goal Range: Low 110 mg/dL - High 140 mg/dL * Correction Factor: 10 mg/dL/unit for all BSG checks except dinnertime coverage which will be 9mg/dL/unit * Nutritional / Prandial insulin per carb ratio of 1 unit per 4 grams CHO consumed for breakfast and lunch, 1 unit per 3gms CHO consumed w/ dinner PLAN FOR DISCHARGE: * A1c 5.9%, continue home regimen as long as patient not experiencing hypoglycemia at home.
--- NOTE | 2018-10-12 09:08 | Cardiology Progress Note ---
Date of Service October 12, 2018 Assessment & Plan (1) Acute embolic stroke: -- LT frontal CVA post cardiac catheterization 2. AF with RVR 3. GRACIE 4. Small vessel CAD 5. Diastolic heart failure 6. Post mitral valve repair for severe mitral regurgitation 2007--mild MR on echo at [facility] 07/2018 7. Chronic infrarenal aortic dissection--found incidentally, seen by Dr. Keller 8. Interstitial lung disease Some improvement in neurologic deficits compared with yesterday. HR better controlled with IV fluids, minimal IV diltiazem Breathing comfortably on RA. Well perfused. Chronic fine crackles. BUN/SCr still elevated, UOP reasonable. +Hematuria -- Continued supportive care post CVA -- Additional IV fluids today. Discontinue fluid restriction. -- Continue Diltiazem drip today -- OK with HR in 110s. If remains stable can transition back to PO diltiazem tomorrow. -- Continue heparin infusion, restarted on coumadin. -- Continue Aspirin, statin -- Medical management of small vessel CAD. Subjective No events overnight. This morning eating breakfast and taking PO meds. Alert, answers questions appropriately intermittently. Still with some aphasia, achalasia Denies chest pain, shortness of breath or headache. Tele reviewed - HRs better controlled overnight. Review of Systems Review of Systems: All systems reviewed & are unremarkable except as noted in HPI & below Physical Exam Constitutional: well developed; no acute distress Eyes: + anicteric sclerae and reactive pupils Respiratory: normal respiratory effort Auscultation: + crackles (fine crackles at bases. ) Cardiovascular: Rate/Rhythm: regular rate and + irregularly irregular Heart Sounds: no murmur Vessels: no JVD Extremities: normal capillary refill; no edema Skin: no rashes, warm and dry Neurologic: moves all extremities Speech / Cognition: + expressive aphasia Motor/Sensory: + asterixis Cranial Nerves: normal facial strength, normal hearing and able to elevate shoulders bilaterally Results & Data Vital Signs (Past 12 Hours) Vital Signs Temp Pulse Resp BP Pulse Ox 10/12/18 07:08 98.1 F 101 H 20 108/75 95 10/12/18 03:54 97.5 F L 92 H 18 103/86 94 10/11/18 23:41 97.5 F L 94 H 19 136/79 98 10/11/18 22:07 88 115/87 98 PG Care Time/CCT Total # of Minutes Spent Total Time Spent with Patient: Total time spent is greater than 50% in coordination of care (as documented) at patient's floor/unit and/or counseling patient:
--- NOTE | 2018-10-12 09:40 | Neurology Progress Note ---
Date of Service October 12, 2018 Assessment & Plan (1) Acute embolic stroke: (2) AF (atrial fibrillation): (3) Hypertension: (4) Diabetes mellitus type 2, controlled: (5) Diabetic peripheral neuropathy associated with type 2 diabetes mellitus: Patient had the acute onset of speech and language problems as well as some right-sided weakness October 10 in the evening, several hours following a cardiac catheterization procedure earlier in the day, having been off anticoagulation. MRI of the brain showed a moderate-sized left posterior frontal acute CVA and a punctate acute right cerebellar hemispheric CVA. These, taken together along with the unremarkable CT angiography of the head and neck would suggest embolic stroke. According to nursing records the patient was off anticoagulation after the cardiac catheterization until the time of his event last evening and not restarted until 2229. He was also given aspirin. On examination the patient has a predominant motor/expressive aphasia with some dysarthria. I do not believe he has a receptive aphasia. Also, he has some mild right-sided weakness. He has mildly improved compared to yesterday. Patient has multiple risk factors for ischemic stroke including hypertension, diabetes, dyslipidemia, and sleep apnea. His blood pressure and lipids are fairly well controlled but he still has elevated glucose. Patient also has a diabetic polyneuropathy which is stable. Recommendations: 1. Continue anticoagulation to prevent embolic stroke. He will be converted to warfarin. 2. Continue 81 milligram aspirin tablet daily. 3. Physical, occupational, and speech therapy consults. Evaluate speech and swallowing and increase the strength and gait training. Increase activity as able. 4. I believe he would be a good rehabilitation hospital candidate given his motor/gait and speech issues. Overall, I spent a total of 40 minutes with this case including review of records, review of MRI film, direct evaluation the patient at bedside, and discussing the case with the patient and his RN at bedside along with Dr. Me lucio, including differential diagnosis and treatment options. Subjective Patient has no complaint of pain or headache. He feels good. He feels so mewhat better than yesterday. He cannot be overly specific but he thinks his speech is a little better. He feels his right side is about the same as yesterday. Blood pressure is 108/75. White count is still elevated 18.4. He has an elevated BUN and creatinine. He is in persistent atrial fibrillation overnight and with occasional PVCs. His rate is in the 90s to 100s. Nursing reported no new events overnight. Physical Exam Physical Exam: He is awake and alert. His speech has some mild dysarthria with continued expressive aphasia. I do not get a sense of receptive aphasia like I did yesterday. He is pleasant and cooperative with good mood and affect. He can repeat but still has word-finding issues. He knew his name and the fact that he was at [facility] in the hospital. He knew it was 2018. Extraocular eye muscles were intact. There was no facial droop today. Tongue was midline. With outstretched arms he had a slight drift on the right although it was more of a proximal shoulder weakness than a true rotational drift. There was no obvious ataxia or tremor of the upper extremities. [id number] testing revealed some difficulties more on the right than the left but I believe this was more proximal leg weakness than true ataxia. Otherwise strength was symmetrical throughout with good tone. Reflexes were symmetrical throughout toes were downgoing to plantar stimulation bilaterally. Results & Data Vital Signs (Past 12 Hours) Vital Signs Temp Pulse Resp BP Pulse Ox 10/12/18 07:08 36.7 C 101 H 20 108/75 95 10/12/18 03:54 36.4 C L 92 H 18 103/86 94 10/11/18 23:41 36.4 C L 94 H 19 136/79 98 10/11/18 22:07 88 115/87 98 PG Care Time/CCT Total # of Minutes Spent Total Time Spent with Patient: Total time spent is greater than 50% in coordination of care (as documented) at patient's floor/unit and/or counseling patient:
--- NOTE | 2018-10-12 11:35 | Medical Student H&P ---
Date of Service October 12, 2018 History of Present Illness Chief Complaint: Stroke recovery, atrial fibrillation, and blood in urine Primary Care Provider: Marco Velasco MD Patient is a 68 year old male with a history of atrial fibrillation, congestive heart failure, diabetes mellitus types II, hypertension, and hyperlipidemia who presented to the Emergency Department 7 days ago with concerns of urinary roxane quency and incontinence, fevers and chills, shortness of breath, and memory dysfunction. Since that time, he was determined to have a UTI which was treated with IV ceftriaxone followed by PO cefdinir. Atrial fibrillation with RVR is being managed with diltiazem. Cardiac catheterization revealed severe apical LAD disease. Anticoagulation was stopped prior to this procedure and the patient developed acute stroke-like symptoms including dysarthria and expressive aphasia as well as right-sided weakness. This was determined to be due to a left posterior frontal acute CVA and a punctate acute right cerebellar hemispheric CVA. Patient was seen by neurology and urology this morning. Patient feels that his speech and muscle weakness are mildly improved as compared to yesterday. He does not report headache or any pain. He states that he has been able to move his bowels with his last bowel movement being a formed stool last night. He has been urinating without frequency, urgency, or pain but reports that his urine continues to be bloody. He does not endorse fever, chills, or sweats. Allergies Allergy/AdvReac Type Severity Reaction Status Date / Time No Known Allergies Allergy Unverified 10/04/18 23:33 Home Medications Home Medications Medication Instructions Recorded Confirmed Type insulin aspart (U-100) 100 unit/mL 30 units SUBCUT TIDM #3 ml 08/12/18 10/10/18 History (3 mL) subcutaneous pen omega-3 fatty acids 1,250 mg 1,250 mg PO DAILY 08/12/18 10/10/18 History capsule fenofibrate nanocrystallized 48 mg 48 mg PO DAILY #90 tab 08/29/18 10/10/18 History tablet warfarin 3 mg tablet 3 mg PO DAILY #90 tab 08/29/18 10/10/18 History albuterol sulfate HFA 90 1 - 2 puffs INHALATION Q4H PRN gm 09/14/18 10/10/18 History mcg/actuation aerosol inhaler furosemide 20 mg tablet 40 mg PO DAILY tab 09/14/18 10/10/18 History fluticasone furoate 100 1 puffs INH DAILY #30 ea 09/16/18 10/10/18 Rx mcg/actuation blister powder for inhalation rosuvastatin 5 mg tablet 5 mg PO DAILY #30 tab 09/21/18 10/10/18 Rx cholecalciferol (vitamin D3) 1,000 1,000 units PO DAILY tab 10/04/18 10/10/18 History unit (25 mcg) tablet cyanocobalamin (vit B-12) 100 mcg 100 mcg PO DAILY tab 10/04/18 10/10/18 History tablet diltiazem HCl [Cartia XT] 180 mg PO BID 10/04/18 10/10/18 History insulin degludec [Tresiba 60 unit SUBCUT HS 10/04/18 10/10/18 History FlexTouch U-200] pregabalin 150 mg capsule 150 mg PO TID #270 cap 10/04/18 10/10/18 Rx tamsulosin 0.4 mg capsule 0.8 mg PO HS cap 10/04/18 10/10/18 History Past Med/Surg History Medical History AF (atrial fibrillation) (Acute) Abdominal aortic aneurysm dissection (Acute) Abnormal diffusion capacity determined by pulmonary function test (Acute) Atrial flutter (Acute) BPH (benign prostatic hyperplasia) (Acute) Background diabetic retinopathy associated with type 2 diabetes mellitus (Acute) Bilateral renal cysts (Acute) Calculus of ureter (Acute 11/30/12) Coronary atherosclerosis of [place] coronary vessel (Acute 11/30/12) Chronic low back pain (Acute) Complex sleep apnea syndrome (Acute) Congestive heart failure (Acute) Diabetes mellitus type 2, controlled (Acute) Diabetic peripheral neuropathy associated with type 2 diabetes mellitus (Acute) Diverticulosis (Acute) Dysesthesia (Acute) Dyslipidemia (Acute) Enlarged prostate without lower urinary tract symptoms (luts) (Acute) Hypertension (Acute) Interstitial lung disease (Acute) Intervertebral disc disease (Acute) Joint pain, knee (Acute) Kidney stone on left side (Acute) Loss of protective sensation of skin of foot (Acute) Lumbar back pain (Acute) Neuropathy in diabetes (Acute 11/30/12) Obesity (Acute) Restrictive lung disease (Acute) SOBOE (shortness of breath on exertion) (Acute) Skin change (Acute) Stage III chronic kidney disease (Acute) 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 (Acute) Type 2 diabetes mellitus, with long-term current use of insulin (Acute) Vitamin B12 deficiency (Acute) Vitamin D deficiency (Acute) Surgical History Status post mitral valve annuloplasty (Acute) History of mitral valve replacement History of shoulder surgery History of surgical removal of pilonidal cyst Family History Mother Diabetes Colon cancer Grandmother Multiple sclerosis Father Coronary heart disease Diabetes Myocardial infarction Grandfather Stroke Sister Diabetes Hypertension Brother Hypertension Diabetes Son Depression Social History Preferred Language: Thai Communication Ability: Effective Visual Impairment: No Limitations Hearing Ability: Normal Psychiatric Nurse Practitioner Required: No Beliefs That Will Affect Care: None marital status: Current Living Situation: Spouse and Family current occupational status: retired current occupation: Former [employer] Feels Safe at Home: Yes Smoking Status: Never smoker Hx Alcohol Use: No Hx Substance Use: No Childhood Exposure to Second-Hand Smoke: No Dental Care, Regularly: No Physical Activity Frequency: Does not Exercise Seatbelt Use: always Sunscreen Use: No Review of Systems + weakness (in right upper and lower extremities); no fever, no chills, no sweats, no fatigue, no malaise and no insomnia no problem reported no problem reported no cough and no dyspnea no chest pain and no dyspnea no problem reported + hematuria no problem reported + localized weakness; no headache(s) Physical Exam Physical Exam: General Appearance: Patient is in no acute distress and is resting comfortably and contently. HEENT Normocephalic atraumatic, no erythema, edema, or exudate in the mouth or throat. Pulmonary No respiratory distress or increased respiratory effort. Slight wheezes appreciated in the base of the right lung. Cardiac Irregularly irregular rhythm. Tachycardic. No rubs, murmurs, or gallops. No peripheral edema appreciated. Abdomen Bowel sounds normal. Abdomen soft, no hepatosplenomegaly or tenderness on palpation. Skin Warm, pink, and slightly diaphoretic. Lymph No lymphadenopathy. Neuro Mild dysarthria, significant expressive aphasia, and mild receptive aphasia. Patient was able to repeat phrases but seemed confused. Strength reduced in right upper and lower extremity. Sensation appears to be intact bilaterally. Results & Data Vital Signs (Past 12 Hours) Vital Signs Temp Pulse Resp BP Pulse Ox 10/12/18 10:52 36.5 C 109 H 22 119/81 94 10/12/18 07:08 36.7 C 101 H 20 108/75 95 10/12/18 03:54 36.4 C L 92 H 18 103/86 94 10/11/18 23:41 36.4 C L 94 H 19 136/79 98 Laboratory Results Urine Blood: 3+ Urine Protein: 3+ RBC, WBC, and Epith: >30 Hyaline Casts: 5-10 WBC: 18.49 Chloride: 92 BUN: 107 Creatinine: 3.5 BUN/Cr: 30.6 Glucose: 136 Albumin: 3.2 Globulin: 4.1 Alb/Glob: 0.8 APTT: 42.2 Code Status & VTE Plan VTE Prophylaxis Plan VTE Prophylaxis will be ordered: Yes
[2018-10-12 12:31] LABS: Partial Thromboplastin Ratio 2.3
[2018-10-12 12:56] LABS: Partial Thromboplastin Time 61.9 Seconds (21.0-31.0)
[2018-10-12] MEDS: dilTIAZem HCl 125 MG in DEXTROSE 5% 100 ML IV SCH (13:53)
--- NOTE | 2018-10-12 15:14 | Infectious Disease Progress Nt ---
Date of Service October 12, 2018 Assessment & Plan (1) UTI (urinary tract infection): Patient with E. coli urinary tract infection now with acute embolic CVA. Has gross hematuria, likely related to anticoagulation in the setting of infection. Continue antibiotics as outlined. Will follow. (2) Escherichia coli infection: Subjective Patient seen in follow-up for E. coli urinary tract infection. Events reviewed. Patient developed acute embolic CVA, now on anticoagulation. Has also developed hematuria. More awake today, remains aphasic. White count has improved. Review of Systems 2 Review of Systems: All systems reviewed & are unremarkable except as noted in HPI & below Physical Exam Constitutional: WD/WN, vitals as above comfortable; no acute distress Eyes: PERRL, conjunctivae normal, anicteric sclerae ENMT: external ear and nose normal, oropharynx normal Neck: trachea midline, no thyromegaly neck nontender Respiratory: normal respiratory effort, lungs clear to auscultation normal percussion; does not use accessory muscles Cardiovascular: Rate/Rhythm: regular rate and regular rhythm Heart Sounds: normal S1 and normal S2; no gallop, no murmur and no cardiac rub Vessels: normal peripheral pulses; no JVD Gastrointestinal (Abdomen): normal bowel sounds, soft, nontender, no hepatosplenomegaly Musculoskeletal: no cyanosis or clubbing, extremities motor strength 5/5 Spine: thoracic spine normal to inspection and lumbar spine normal to inspection; no cervical spinal tenderness Skin: no rashes, warm and dry normal turgor; no lesions Neurologic: awake Speech / Cognition: + expressive aphasia Psychiatric: A+Ox3, euthymic affect Orientation: cooperative Lymphatic: no cervical or axillary lymphadenopathy no inguinal lymphadenopathy Results & Data Vital Signs (Past 12 Hours) Vital Signs Temp Pulse Resp BP Pulse Ox 10/12/18 10:52 36.5 C 109 H 22 119/81 94 10/12/18 07:08 36.7 C 101 H 20 108/75 95 10/12/18 03:54 36.4 C L 92 H 18 103/86 94 Laboratory Results Short CBC 10/11/18 10/11/18 10/12/18 Range/Units 15:47 23:32 05:16 WBC 27.34 H 23.04 H 18.49 H (4.8-10.8) K/uL Hgb 14.6 14.2 15.2 (14.0-18.0) g/dL Hct 41.0 L 39.2 L 43.2 (42-52) % Plt Count 255 233 225 (130-400) K/uL BMP 10/12/18 05:14 Sodium 135 L Potassium 3.8 Chloride 92 L Carbon Dioxide 32 BUN 107 H Creatinine 3.50 H D Glucose 154 H Calcium 8.8 Liver Function 10/12/18 Range/Units 05:14 Total Bilirubin 0.4 (0.2-1) mg/dl AST 17 (15-37) U/L ALT 25 (12-78) U/L Alkaline Phosphatase 61 (45-117) U/L Albumin 3.2 L (3.4-5.0) gm/dl Urine 10/11/18 Range/Units 21:00 Urine Color [place] Urine Appearance Turbid A (Clear) Urine pH 5.0 (4.5-7.5) Ur Specific [place] 1.027 (1.000-1.030) Urine Protein 3+ H (Negative) Urine Glucose (UA) Negative (Negative) Diagnostic Findings Microbiology 10/11/18 21:00 Urine,Clean Catch Urine Culture - Preliminary No growth - Less than 1,000 colonies/mL, Final report to follow. 10/05/18 16:33 Blood Aerobic Blood Culture - Final No growth in Aerobic bottle after 5 days. 10/05/18 16:33 Blood Anaerobic Blood Culture - Final No growth in Anaerobic bottle after 5 days. 10/05/18 16:41 Blood Aerobic Blood Culture - Final No growth in Aerobic bottle after 5 days. 10/05/18 16:41 Blood Anaerobic Blood Culture - Final No growth in Anaerobic bottle after 5 days. 10/04/18 22:19 Blood Aerobic Blood Culture - Final No growth in Aerobic bottle after 5 days. 10/04/18 22:19 Blood Anaerobic Blood Culture - Final No growth in Anaerobic bottle after 5 days. 10/04/18 22:25 Blood Aerobic Blood Culture - Final No growth in Aerobic bottle after 5 days. 10/04/18 22:25 Blood Anaerobic Blood Culture - Final No growth in Anaerobic bottle after 5 days. 10/04/18 21:53 Urine,Clean Catch Urine Culture - Final Escherichia coli PG Care Time/CCT Total # of Minutes Spent Total Time Spent with Patient: Total time spent is greater than 50% in coordination of care (as documented) at patient's floor/unit and/or counseling patient: (1) UTI (urinary tract infection) Hematuria presence: without hematuria Urinary tract infection type: site unspecified Qualified Code(s): N39.0 - Urinary tract infection, site not specified
[2018-10-12 15:56] LABS: BUN Creatinine Ratio 31.3 (10-20); Calcium 8.9 mg/dl (8.5-10.1); Creatinine Clr Calc Pharmacy 22.4 ml/min; Est GFR (African American) 20.5; Est GFR (Non-African American) 17.7
[2018-10-12] MEDS: WARFARIN SOD 3 MG TAB PO SCH (16:51)
[2018-10-12] MEDS: FLUTICASONE HFA 220 MCG INHALER INH SCH (20:29)
[2018-10-12] MEDS: INSULIN GLARGINE SOLOSTAR 100 UNITS/ML 3 ML PEN SC SCH (20:29)
[2018-10-12] MEDS: TAMSULOSIN HCL 0.4 MG CAP PO SCH (20:30)
--- NOTE | 2018-10-12 20:45 | Hospitalist Progress Note ---
Date of Service October 12, 2018 Assessment & Plan (1) Acute renal failure due to tubular necrosis: most recent u/a with micro showed granular casts c/w ATN. I cannot exclude contrast nephropathy from recent contrast for heart cath but less likely. patient with marked rise in Cr over the last 48 hours. serial BMPs today seem to show that the Cr has peaked/plateaued. he is nonoliguric. he does have mild tremor/asterixis which may be from uremia. holding lasix. repeat BMP in am. if any worsening or lack of improvement then formal nephrology eval. (2) Gross hematuria: appreciate urology eval. suspected to be multifactorial - UTI, anticoagulation, alicea trauma in setting of BPH, etc. cbc stable. urology to simply observe for resolution. (3) Acute embolic stroke: left frontal lobe CVA and punctate right cerebellar CVA on MRI brain. dual circulation strokes c/w embolic - suspect from a.fib - as his INR was <2 for multiple days prior to the event. remains on heparin infusion w/ coumadin. appreciate neuro, PT, OT, and speech evals. cont supportive care. avoid hypotension. (4) Atrial fibrillation, rapid: improved s/p diltiazem drip. may transition back to oral dilt tomorrow. appreciate cardiology assistance. (5) UTI (urinary tract infection): 2nd to e.coli. remains on cefdinir renally dosed. day #8 of abx. appreciate ID consult. consider JN to r/o prostatitis. plan 10 days of Rx if no prostatitis? leukocytosis slowly improving. (6) BPH (benign prostatic hyperplasia): s/p alicea insertion. continue flomax. appreciate urology consult. (7) Coronary atherosclerosis of [place] coronary vessel: s/p heart cath this admission with significant CAD. decision made to medically manage at this time. cont asa, statin. uncertain why he is not on beta gilberto. (8) Diabetic peripheral neuropathy associated with type 2 diabetes mellitus: renally dose the lyrica - change to 75mg BID from 150mg TID. pharmacy managing his glycemic control. appreciate their assistance. (9) Stage III chronic kidney disease: baseline Cr about 1.6. now with ARF/GRACIE as above. bmp am. (10) H/O aortic valve replacement: noted bioprosthetic recent echo with preserved valve function (11) Acute on chronic diastolic (congestive) heart failure: acute component resolved. then was likely volume contracted. lasix on hold. appreciate cardiology assistance. (12) Hyponatremia: likely 2nd to acute renal failure. repeat BMP tonight to ensure stability. BMP in am as well. (13) Hypertension: controlled. recent hypotension resolved. (14) Mixed hyperlipidemia: statin (15) DVT prophylaxis: heparin drip w/ coumadin check INR am left message for on her voicemail 10/12/18 Subjective tele overnight - a.fib, rates 90s to 110 range. patient comfortable during the visit. gross hematuria noted in alicea bag. he had expressive aphasia during the exam but able to follow commands. he was frustrated by the aphasia. denied any c/o chest pain, dyspnea or orthopnea. Review of Systems Constitutional: no anorexia Respiratory: no cough Cardiovascular: no chest pain Gastrointestinal: no abdominal pain Physical Exam Constitutional: + obese; no acute distress expressive aphasia ENMT: external ear and nose normal, oropharynx normal Respiratory: normal respiratory effort, lungs clear to auscultation Cardiovascular: Rate/Rhythm: + tachycardic and + irregularly irregular Heart Sounds: normal S1 and normal S2; no murmur Vessels: posterior tibial pulses present and dorsalis pedis pulses present; no JVD Extremities: no edema Gastrointestinal (Abdomen): Inspection/Auscultation: + abdomen distended Percussion/Palpation: abdomen soft; abdomen nontender and no hepatosplenomegaly Neurologic: no focal motor deficits (strength 5/5 x 4 exts) Speech / Cognition: + expressive aphasia; no receptive aphasia Motor/Sensory: + asterixis (with tremor) Coordination: normal [id number] test Psychiatric: Orientation: alert Results & Data Vital Signs (Past 12 Hours) Vital Signs Temp Pulse Resp BP Pulse Ox 10/12/18 19:13 36.6 C 96 H 18 123/67 92 10/12/18 15:41 36.5 C 94 H 18 105/84 95 10/12/18 10:52 36.5 C 109 H 22 119/81 94 Laboratory Results Laboratory Results - last 24 hr 10/11/18 10/11/18 10/12/18 21:00 23:32 05:14 WBC 23.04 H RBC 4.61 L Hgb 14.2 Hct 39.2 L MCV 85.0 MCH 30.8 MCHC 36.2 H RDW Std Deviation 45.6 RDW Coeff of Romulo 14.6 H Plt Count 233 MPV 11.3 H APTT 42.2 H PTT Ratio 1.6 Sodium Potassium Chloride Carbon Dioxide Anion Gap BUN Creatinine Est Cr Clr Drug Dosing Est GFR ( Amer) Est GFR (Non-Af Amer) BUN/Creatinine Ratio Glucose POC Glucose Calcium Total Bilirubin AST ALT Alkaline Phosphatase Total Protein Albumin Globulin Albumin/Globulin Ratio Urine Color [place] Urine Appearance Turbid A Urine pH 5.0 Ur Specific [place] 1.027 Urine Protein 3+ H Urine Glucose (UA) Negative Urine Ketones Negative Urine Blood 3+ H Urine Nitrite Negative Urine Bilirubin Negative Urine Urobilinogen Negative Ur Leukocyte Esterase 1+ H Urine WBC (Auto) >30 H Urine RBC (Auto) >30 H U Hyaline Cast (Auto) 5-10 H U Epithel Cells (Auto) >30 H Urine Bacteria (Auto) Negative Ur Renal Epithelial Cell 0-5 Granular Casts 1-5 H Waxy Casts 1-5 H Urine Yeast Not Reportable 10/12/18 10/12/18 10/12/18 05:14 05:16 07:10 WBC 18.49 H RBC 5.02 Hgb 15.2 Hct 43.2 MCV 86.1 MCH 30.3 MCHC 35.2 RDW Std Deviation 45.9 RDW Coeff of Romulo 14.7 H Plt Count 225 MPV 11.4 H APTT PTT Ratio Sodium 135 L Potassium 3.8 Chloride 92 L Carbon Dioxide 32 Anion Gap 11.0 BUN 107 H Creatinine 3.50 H D Est Cr Clr Drug Dosing 21.5 Est GFR ( Amer) 19.6 Est GFR (Non-Af Amer) 16.9 BUN/Creatinine Ratio 30.6 H Glucose 154 H POC Glucose 136 H Calcium 8.8 Total Bilirubin 0.4 AST 17 ALT 25 Alkaline Phosphatase 61 Total Protein 7.3 Albumin 3.2 L Globulin 4.1 H Albumin/Globulin Ratio 0.8 L Urine Color Urine Appearance Urine pH Ur Specific [place] Urine Protein Urine Glucose (UA) Urine Ketones Urine Blood Urine Nitrite Urine Bilirubin Urine Urobilinogen Ur Leukocyte Esterase Urine WBC (Auto) Urine RBC (Auto) U Hyaline Cast (Auto) U Epithel Cells (Auto) Urine Bacteria (Auto) Ur Renal Epithelial Cell Granular Casts Waxy Casts Urine Yeast 10/12/18 10/12/1810/12/19 11:04 11:50 15:14 WBC RBC Hgb Hct MCV MCH MCHC RDW Std Deviation RDW Coeff of Romulo Plt Count MPV APTT 61.9 H* PTT Ratio 2.3 Sodium 127 L D Potassium Chloride 89 L Carbon Dioxide 25 Anion Gap 12.0 H BUN 106 H Creatinine 3.38 H Est Cr Clr Drug Dosing 22.4 Est GFR ( Amer) 20.5 Est GFR (Non-Af Amer) 17.7 BUN/Creatinine Ratio 31.3 H Glucose 228 H POC Glucose 202 H Calcium 8.9 Total Bilirubin AST ALT Alkaline Phosphatase Total Protein Albumin Globulin Albumin/Globulin Ratio Urine Color Urine Appearance Urine pH Ur Specific [place] Urine Protein Urine Glucose (UA) Urine Ketones Urine Blood Urine Nitrite Urine Bilirubin Urine Urobilinogen Ur Leukocyte Esterase Urine WBC (Auto) Urine RBC (Auto) U Hyaline Cast (Auto) U Epithel Cells (Auto) Urine Bacteria (Auto) Ur Renal Epithelial Cell Granular Casts Waxy Casts Urine Yeast 10/12/18 10/12/18 10/12/18 16:10 16:20 20:25 WBC RBC Hgb Hct MCV MCH MCHC RDW Std Deviation RDW Coeff of Romulo Plt Count MPV APTT PTT Ratio Sodium Potassium 3.9 Chloride Carbon Dioxide Anion Gap BUN Creatinine Est Cr Clr Drug Dosing Est GFR ( Amer) Est GFR (Non-Af Amer) BUN/Creatinine Ratio Glucose POC Glucose 263 H 229 H Calcium Total Bilirubin AST ALT Alkaline Phosphatase Total Protein Albumin Globulin Albumin/Globulin Ratio Urine Color Urine Appearance Urine pH Ur Specific [place] Urine Protein Urine Glucose (UA) Urine Ketones Urine Blood Urine Nitrite Urine Bilirubin Urine Urobilinogen Ur Leukocyte Esterase Urine WBC (Auto) Urine RBC (Auto) U Hyaline Cast (Auto) U Epithel Cells (Auto) Urine Bacteria (Auto) Ur Renal Epithelial Cell Granular Casts Waxy Casts Urine Yeast PG Care Time/CCT Total # of Minutes Spent Total Time Spent with Patient: Total time spent is greater than 50% in coordinat ion of care (as documented) at patient's floor/unit and/or counseling patient: (1) UTI (urinary tract infection) Hematuria presence: without hematuria Urinary tract infection type: site unspecified Qualified Code(s): N39.0 - Urinary tract infection, site not specified (2) BPH (benign prostatic hyperplasia) Lower urinary tract symptom presence: symptoms present Lower urinary tract symptom detail: unspecified Qualified Code(s): N40.1 - Benign prostatic hyperplasia with lower urinary tract symptoms (3) Coronary atherosclerosis of [place] coronary vessel [place] vs. transplanted heart: [place] heart Associated angina: without angina Qualified Code(s): I25.10 - Atherosclerotic heart disease of [place] coronary artery without angina pectoris (4) Hypertension Hypertension type: essential hypertension Qualified Code(s): I10 - Essential (primary) hypertension
[2018-10-12] MEDS: HEPARIN SODIUM/DEXTROSE 25,000 UNITS/500 ML BAG IV SCH (21:30)
[2018-10-12 21:47] LABS: BUN Creatinine Ratio 31.8 (10-20); Calcium 8.3 mg/dl (8.5-10.1); Creatinine Clr Calc Pharmacy 23.6 ml/min; Est GFR (African American) 21.8; Est GFR (Non-African American) 18.8; Potassium 3.8 mmol/L (3.5-5.1)
[2018-10-13 06:21] LABS: Hematocrit (blood only) 39.6 % (42-52); Hemoglobin 13.8 g/dL (14.0-18.0); Mean Corpuscular Hemoglobin 29.4 pg (25-34); Mean Corpuscular Hgb Conc 34.8 g/dL (32-36); Mean Corpuscular Volume 84.4 fL (80-100); Mean Platelet Volume 11.1 fL (7.4-10.4); Platelet Count 236 K/uL (130-400); RDW Coefficient of Variation 14.3 % (11.5-14.5); RDW Standard Deviation 44.1 fL (36.4-46.3); Red Blood Count 4.69 M/uL (4.7-6.1); White Blood Count 16.84 K/uL (4.8-10.8)
[2018-10-13 06:43] LABS: INR 1.4 (0.9-1.1); Partial Thromboplastin Ratio 1.8; Prothrombin Time 14.2 Seconds (9.0-12.0)
[2018-10-13 06:44] LABS: Partial Thromboplastin Time 49.1 Seconds (21.0-31.0)
[2018-10-13 06:51] LABS: Albumin Level 3.2 gm/dl (3.4-5.0); BUN Creatinine Ratio 35.5 (10-20); Creatinine Clr Calc Pharmacy 28.1 ml/min; Est GFR (African American) 26.9; Est GFR (Non-African American) 23.2; Potassium 3.6 mmol/L (3.5-5.1)
[2018-10-13 06:54] LABS: Albumin Globulin Ratio 0.9 (0.9-2); Bilirubin,Total 0.6 mg/dl (0.2-1); Globulin 3.7 gm/dl (2.5-4.0); Total Protein 6.9 gm/dl (6.4-8.2)
[2018-10-13] MEDS: INSULIN ASPART 100 UNITS/ML 3 ML PEN SC SCH ×4 (08:11→20:20)
[2018-10-13] MEDS: ASPIRIN 81 MG ECTAB PO SCH (08:15)
[2018-10-13] MEDS: CEFDINIR 300 MG CAP PO SCH (08:15)
[2018-10-13] MEDS: PREGABALIN 75 MG CAP PO SCH ×2 (08:15→20:18)
[2018-10-13] MEDS: CYANOCOBALAMIN (VITAMIN B-12) 100 MCG TABLET PO SCH (08:15)
[2018-10-13] MEDS: FENOFIBRATE NANOCRYSTALLIZED 48 MG TABLET PO SCH (08:15)
[2018-10-13] MEDS: ROSUVASTATIN CALCIUM 5 MG TAB PO SCH (08:16)
[2018-10-13] MEDS: CHOLECALCIFEROL 1,000 UNITS TAB PO SCH (08:16)
[2018-10-13] MEDS: FLUTICASONE HFA 220 MCG INHALER INH SCH ×2 (08:16→20:21)
[2018-10-13] MEDS: predniSONE 20 MG TAB PO SCH (08:16)
[2018-10-13] MEDS ORDERED: INSULIN HUMAN NPH SC SCH (09:00)
--- NOTE | 2018-10-13 09:05 | Cardiology Progress Note ---
Date of Service October 13, 2018 Assessment & Plan (1) Acute embolic stroke: --Acute left frontal CVA and punctate right cerebellar hemispheric CVA post cardiac catheterization 2. AF with RVR 3. GRACIE 4. Small vessel CAD 5. Diastolic heart failure 6. Post mitral valve repair for severe mitral regurgitation 2007--mild MR on echo at [facility] 07/2018 7. Chronic infrarenal aortic dissection--found incidentally, seen by Dr. Keller 8. Interstitial lung disease Overall with improvement in neurological deficits. Neurology following. Heart rate is better controlled, will transition back to PO diltiazem. Renal function is improving with IV fluids. Urine output improved. On exam he appears well perfused without signs of heart failure. Recommend the following: --Switch to PO diltiazem --Continue to hold Lasix, monitor I&Os --Continue heparin infusion, warfarin has been restarted --Continue ASA, statin --Medical management for small vessel CAD Subjective Patient feeling well overall, recognizes he is somewhat confused. No events overnight. Alert answers questions appropriately for the most part. Continues with some aphasia. No chest pain, shortness of breath, orthopnea or PND. No headache. Tele reviewed-- afib with rate 80-low 100s. Review of Systems Review of Systems: All systems reviewed & are unremarkable except as noted in HPI & below Physical Exam Physical Exam: General: No acute distress, comfortable. HEENT: Head is normal. PERRLA. EOMI. Sclerae anicteric. Neck: Normal carotid upstrokes, no bruits. No appreciable JVD. Lungs: Fine bibasilar crackles (chronic). Cardiac: Irregular. S1-S2 normal. No appreciable murmur, gallop or rub. Extremities/vascular: --Well perfused. No peripheral edema. --Right radial access site with ecchymosis. Distal pulse and sensation intact. Neurologic: +Expressive aphasia. Follows commands. Moves all extremities. Strength equal bilaterally. Results & Data Vital Signs (Past 12 Hours) Vital Signs Temp Pulse Pulse Resp BP Pulse Ox 10/13/18 07:13 36.4 C L 100 H 20 113/82 99 10/13/18 07:06 36.9 C 90 19 132/81 98 10/13/18 03:20 36.9 C 90 18 106/73 97 10/12/18 23:40 36.4 C L 90 19 106/79 93 10/12/18 22:20 89 Laboratory Results Laboratory Results - last 24 hr 10/12/18 10/12/18 10/12/18 11:04 11:50 15:14 WBC RBC Hgb Hct MCV MCH MCHC RDW Std Deviation RDW Coeff of Romulo Plt Count MPV PT INR APTT 61.9 H* PTT Ratio 2.3 Sodium 127 L D Potassium Chloride 89 L Carbon Dioxide 25 Anion Gap 12.0 H BUN 106 H Creatinine 3.38 H Est Cr Clr Drug Dosing 22.4 Est GFR ( Amer) 20.5 Est GFR (Non-Af Amer) 17.7 BUN/Creatinine Ratio 31.3 H Glucose 228 H POC Glucose 202 H Osmolality Calcium 8.9 Total Bilirubin AST ALT Alkaline Phosphatase Total Protein Albumin Globulin Albumin/Globulin Ratio 10/12/18 10/12/18 10/12/18 16:10 16:20 20:25 WBC RBC Hgb Hct MCV MCH MCHC RDW Std Deviation RDW Coeff of Romulo Plt Count MPV PT INR APTT PTT Ratio Sodium Potassium 3.9 Chloride Carbon Dioxide Anion Gap BUN Creatinine Est Cr Clr Drug Dosing Est GFR ( Amer) Est GFR (Non-Af Amer) BUN/Creatinine Ratio Glucose POC Glucose 263 H 229 H Osmolality Calcium Total Bilirubin AST ALT Alkaline Phosphatase Total Protein Albumin Globulin Albumin/Globulin Ratio 10/12/18 10/12/18 10/13/18 21:11 21:19 06:09 WBC 16.84 H RBC 4.69 L Hgb 13.8 L Hct 39.6 L MCV 84.4 MCH 29.4 MCHC 34.8 RDW Std Deviation 44.1 RDW Coeff of Romulo 14.3 Plt Count 236 MPV 11.1 H PT INR APTT PTT Ratio Sodium 130 L Potassium 3.8 Chloride 90 L Carbon Dioxide 28 Anion Gap 12.0 H BUN 102 H Creatinine 3.21 H Est Cr Clr Drug Dosing 23.6 Est GFR ( Amer) 21.8 Est GFR (Non-Af Amer) 18.8 BUN/Creatinine Ratio 31.8 H Glucose 217 H POC Glucose Osmolality 309 H Calcium 8.3 L Total Bilirubin AST ALT Alkaline Phosphatase Total Protein Albumin Globulin Albumin/Globulin Ratio 10/13/18 10/13/18 10/13/18 06:09 06:09 07:11 WBC RBC Hgb Hct MCV MCH MCHC RDW Std Deviation RDW Coeff of Romulo Plt Count MPV PT 14.2 H INR 1.4 H APTT 49.1 H* PTT Ratio 1.8 Sodium 133 L Potassium 3.6 Chloride 92 L Carbon Dioxide 30 Anion Gap 11.0 BUN 96 H Creatinine 2.70 H D Est Cr Clr Drug Dosing 28.1 Est GFR ( Amer) 26.9 Est GFR (Non-Af Amer) 23.2 BUN/Creatinine Ratio 35.5 H Glucose 139 H POC Glucose 162 H Osmolality Calcium 9.0 Total Bilirubin 0.6 AST 19 ALT 23 Alkaline Phosphatase 53 Total Protein 6.9 Albumin 3.2 L Globulin 3.7 Albumin/Globulin Ratio 0.9 PG Care Time/CCT Total # of Minutes Spent Total Time Spent with Patient: Total time spent is greater than 50% in coordination of care (as documented) at patient's floor/unit and/or counseling patient:
--- NOTE | 2018-10-13 10:04 | Medical Student Progress Note ---
Date of Service October 13, 2018 Assessment & Plan Treatment Plan (1)Acute renal failure due to tubular necrosis asterixis diminished today on exam, seems to be producing adequate urine, BUN slightly decreased to 96 today and creatinine down to 2.7, BUN/Cr remains elevated at 35.5 Continue to monitor and give IV fluids, hold Lasix/avoid hypotension. (2)Gross hematuria/UTI - urine is dark pink-red, no urinary urgency/frequency/pain. WBC improving (16.84 today) Continue cefdinir and urology observation. (3)Acute embolic stroke - left frontal lobe CVA and punctate right cerebellar CVA on MRI brain confusion seems reduced today, dysarthria largely resolve and expressive aphasia much less severe. remain on heparin infusion w/ coumadin for prevention; continue supportive care. (4)Atrial fibrillation, RVR HR trending down for the most part, no palpitations cardio feels he can transition back to PO diltiazem (5)Coronary atherosclerosis of LAD determined to have 80-90% LAD disease on cath. Continue to medically manage with aspirin and statin, consider addition of beta gilberto. (6) Type 2 DM/Retinopathy + Neuropathy - Blood sugars under better control but both slightly elevated both first thing in the morning and pre-prandially (139 and 162) pharmacy will continue to manage (7) CHF no sign/symptoms (edema, JVD) volume status seems good Continue to hold Lasix (8) Hyponatremia - Sodium appears to be trending up with most recent reading of 133. Continue to monitor. (9) DVT prophylaxis - INR increased slightly to 1.4 but remains outside of therapeutic range Continue heparin + coumadin and monitor INR Subjective Patient is a 68 year old male with a history of atrial fibrillation, congestive heart failure, diabetes mellitus types II, hypertension, and hyperlipidemia who presented to the Emergency Department 7 days ago with concerns of urinary frequency and incontinence, fevers and chills, shortness of breath, and memory dysfunction. Since that time, he was determined to have a UTI which was treated with IV ceftriaxone followed by PO cefdinir. Cardiac catheterization revealed severe apical LAD disease. Anticoagulation was stopped prior to this procedure and the patient developed acute stroke-like symptoms including dysarthria and expressive aphasia as well as right-sided weakness. This was determined to be due to a left posterior frontal acute CVA and a punctate acute right cerebellar hemispheric CVA. Patient rested comfortably overnight. He ate a full dinner last night and breakfast this morning and does not endorse any nausea, vomiting, or abdominal pain. He was able to move his bowels last night and endorses a formed stool. He states that he is overall feeling less confused today. He is concerned about his atrial fibrillation but does not endorse any palpitations, chest pain, or dyspnea. He states that he does not have any pain on urination or increased frequency or urgency. He was seen by cardiology and neurology this morning. Review of Systems Constitutional: no fever, no chills, no sweats, no fatigue, no malaise, no anorexia and no insomnia Respiratory: no cough, no dyspnea and no problem reported Cardiovascular: no dyspnea, no orthopnea and no palpitations Gastrointestinal: + vomiting; no problem reported Genitourinary: + hematuria; no dysuria, no difficulty urinating, no urinary frequency and no urinary incontinence Neurologic: no headache(s) Physical Exam Physical Exam: HEENT Normocephalic atraumatic. Pulmonary No respiratory distress or increased respiratory effort. Lungs clear bilaterally to auscultation no wheezes, rales, or rhonchi. Cardiac Irregularly irregular rhythm. Tachycardic. No rubs, murmurs, or gallops. No peripheral edema appreciated. Abdomen Bowel sounds normal. Abdomen soft, no hepatosplenomegaly or tenderness on palpation. Skin Warm, pink, and dry. Neuro A&O to person, place, and time - appropriately stated today was but stated the year was 1919. Diminishing dysarthria, expressive aphasia present but improved. Patient was able to respond to questions more readily and was less confused. Strength mildly reduced in right upper extremity. Sensation appears to be intact bilaterally. Genitourinary - No asterixis present. Urine appeared dark pink-red. Results & Data Vital Signs (Past 12 Hours) Vital Signs Temp Pulse Pulse Resp BP Pulse Ox 10/13/18 07:13 36.4 C L 100 H 20 113/82 99 10/13/18 07:06 36.9 C 90 19 132/81 98 10/13/18 03:20 36.9 C 90 18 106/73 97 10/12/18 23:40 36.4 C L 90 19 106/79 93 10/12/18 22:20 89 Laboratory Results WBC: 16.84 BUN: 96 Creatinine: 2.7 BUN/Cr: 35.5 Na: 133 INR: 1.4 Pre-Prandial Glucose: 139 Post-Prandial Glucose: 162
--- NOTE | 2018-10-13 10:40 | Urology Progress Note ---
Date of Service October 13, 2018 Assessment & Plan (1) Gross hematuria: 68yo M with E.Coli UTI, indwelling catheter, on anticoagulation s/p CVA Hematuria is clearing spontaneously. H/H remains stable with improved kidney function. Okay to d/c catheter when no longer needed by primary team. No further intervention at this time. We will arrange for outpatient followup to ensure resolution of hematuria in 3-4 weeks. Thank you for allowing us to participate in the acute care of Mr. Babb. Please reconsult with additional questions, concerns or changes in patient status. Subjective 68yo M with hematuria with E.Coli UTI, indwelling catheter, on anticoagulation s/p CVA Hematuria has cleared up spontaneously overnight. Per nursing, no need for hand irrigation. No new issues or complaints from perspective. Review of Systems Review of Systems: All systems reviewed & are unremarkable except as noted in HPI & below Physical Exam Constitutional: no acute distress and not ill appearing Eyes: no nystagmus ENMT: Ears: no hearing impairment Neck: trachea midline Respiratory: no respiratory distress and no cough Cardiovascular: Vessels: no JVD Chest (Breasts): Chest: normal inspection of chest Gastrointestinal (Abdomen): Inspection/Auscultation: abdomen not distended and no abdominal edema Percussion/Palpation: abdomen soft; abdomen nontender Musculoskeletal: Head/Neck/Chest: normocephalic and head atraumatic Skin: no rashes, warm and dry Neurologic: awake; not confused and not obtunded Psychiatric: Orientation: alert and oriented x 3 Eye Contact: good eye contact Affect: no depressed affect Genitourinary: bladder normal to inspection; no CVA tenderness alicea draining patrick with streaks of light pink hematuria. no clots Lymphatic: no lymphadenopathy and no lymphedema Results & Data Vital Signs (Past 12 Hours) Vital Signs Temp Pulse Resp BP Pulse Ox 10/13/18 07:13 36.4 C L 100 H 20 113/82 99 10/13/18 07:06 36.9 C 90 19 132/81 98 10/13/18 03:20 36.9 C 90 18 106/73 97 10/12/18 23:40 36.4 C L 90 19 106/79 93
--- NOTE | 2018-10-13 12:54 | Pharmacy Report ---
Pharmacy Glycemic Short Note 2 - Date of Service October 13, 2018 - Glycemic Short BSG Results (Last 24 hours): 10/12/18 10/12/18 10/12/18 15:14 16:20 20:25 Glucose 228 H POC Glucose 263 H 229 H 10/12/18 10/13/18 10/13/18 21:11 06:09 07:11 Glucose 217 H 139 H POC Glucose 162 H 10/13/18 11:18 Glucose POC Glucose 296 H OUTPATIENT ANTIDIABETIC REGIMEN: * Tresiba 60 units SC HS * Insulin aspart 30-35 units SC TIDM * A1c = 5.9 % on 10/05/18 CURRENT INPATIENT REGIMEN: * Basal insulin: Lantus Q HS per scale: 40 units if less than 120, 50 units if 120-180, 60 units if above 180 * Correctional Insulin: Novolog Correction per scale ACHS Goal Range: Low 110 mg/dL - High 140 mg/dL Correction Factor: 10 mg/dL/unit with all meals except dinner correction factor: 9 mg/dl/unit with dinner * Prandial insulin: Per carb ratio of 1 unit per 4 grams CHO consumed for all meals except dinner Per carb ratio of 1 unit per 3 grams CHO consumed at dinner ASSESSMENT: * AM fasting BSGs are in goal range indicating adequate basal insulin dosing * Post-prandial BSGs are elevated secondary to prednisone. * NPH insulin is used to counteract the hyperglycemic effect of prednisone. The rationale for this approach is that the pharmacodynamics profile of NPH, with a peak effect of 4-8hrs and duration of action of 12-16hrs, mirrors the pharmacodynamics of prednisone. NPH should be dosed at the same time that prednisone is given * The dose of NPH given is dependent on the steroid dose given * For doses of prednisone 10mg/day or above NPH dose should be 0.1 units/kg * NPH dosing above is given in addition to patients basal insulin needs * Typically, patients will also need rapid-acting insulin with meals PLAN FOR INPATIENT GLYCEMIC CONTROL: * Basal insulin - no change * Lantus 60 units SQ HS * Bolus insulin- no change * NovoLog per scale ACHS or Q6hrs while NPO * Goal Range: Low 110 mg/dL - High 140 mg/dL * Correction Factor: 10 mg/dL/unit for all BSG checks except dinnertime coverage which will be 9mg/dL/unit * Nutritional / Prandial insulin per carb ratio of 1 unit per 4 grams CHO consumed for breakfast and lunch, 1 unit per 3gms CHO consumed w/ dinner * Steroid incuded hyperglycemia * NPH 10 units (0.1 units/kg) to be given with NPH PLAN FOR DISCHARGE: * A1c 5.9%, continue home regimen as long as patient not experiencing hypoglycemia at home.
[2018-10-13] MEDS: dilTIAZem HCL 120 MG CAPCR PO SCH (13:41)
--- NOTE | 2018-10-13 15:14 | Ultrasound Report ---
RENAL ULTRASOUND CLINICAL HISTORY: ARF; h/o renal stones; assess stones, hydro, etc COMPARISON STUDY: Renal ultrasound January 17, 2015. CTA of the abdomen and pelvis February 25, 2017. TECHNIQUE: Sonography of the kidneys and the urinary bladder was performed. FINDINGS: Right kidney measures 11.1 cm in maximal dimension and the left measures 12.3 cm. There is no hydronephrosis. Bilateral renal cysts measure up to 4.5 cm. No calculi are identified by sonograph y. A Ruth balloon is present within the bladder which is largely collapsed. Mild to moderate right r enal cortical thinning is noted. IMPRESSION: 1. No hydronephrosis. 2. Mild to moderate right renal cortical thinning. 3. Multiple bilateral renal cysts. Electronically signed by: Mc Concepcion M.D. 10/13/2018 3:13 PM
[2018-10-13] MEDS: WARFARIN SOD 3 MG TAB PO SCH (17:22)
--- NOTE | 2018-10-13 18:27 | Infectious Disease Progress Nt ---
Date of Service October 13, 2018 Assessment & Plan (1) UTI (urinary tract infection): Patient with E. coli urinary tract infection now with acute embolic CVA. Has gross hematuria, likely related to anticoagulation in the setting of infection. Continue antibiotics as outlined. Will follow. (2) Escherichia coli infection: Subjective 68yo M with hematuria with E.Coli UTI, indwelling catheter, on anticoagulation s/p CVA Hematuria has cleared up spontaneously overnight. Per nursing, no need for hand irrigation. No new issues or complaints from perspective. Review of Systems Review of Systems: All systems reviewed & are unremarkable except as noted in HPI & below Physical Exam Constitutional: WD/WN, vitals as above comfortable; no acute distress Eyes: PERRL, conjunctivae normal, anicteric sclerae ENMT: external ear and nose normal, oropharynx normal Neck: trachea midline, no thyromegaly neck nontender Respiratory: normal respiratory effort, lungs clear to auscultation normal percussion; does not use accessory muscles Cardiovascular: Rate/Rhythm: regular rate and regular rhythm Heart Sounds: normal S1 and normal S2; no gallop, no murmur and no cardiac rub Vessels: normal peripheral pulses; no JVD Gastrointestinal (Abdomen): normal bowel sounds, soft, nontender, no hepatosplenomegaly Musculoskeletal: no cyanosis or clubbing, extremities motor strength 5/5 Spine: thoracic spine normal to inspection and lumbar spine normal to inspection; no cervical spinal tenderness Skin: no rashes, warm and dry normal turgor; no lesions Neurologic: patellar DTR's 2+ bilat, sensation intact awake Speech / Cognition: + expressive aphasia Psychiatric: A+Ox3, euthymic affect Orientation: cooperative Lymphatic: no cervical or axillary lymphadenopathy no inguinal lymphadenopathy Results & Data Vital Signs (Past 12 Hours) Vital Signs Temp Pulse Resp BP Pulse Ox 10/13/18 16:58 36.8 C 92 H 22 101/75 96 10/13/18 11:20 36.4 C L 93 H 20 97/62 L 99 10/13/18 11:12 98 10/13/18 07:13 36.4 C L 100 H 20 113/82 99 10/13/18 07:06 36.9 C 90 19 132/81 98 Laboratory Results Short CBC 10/13/18 Range/Units 06:09 WBC 16.84 H (4.8-10.8) K/uL Hgb 13.8 L (14.0-18.0) g/dL Hct 39.6 L (42-52) % Plt Count 236 (130-400) K/uL BMP 10/12/18 10/12/18 10/13/18 15:14 21:11 06:09 Sodium 127 L D 130 L 133 L Potassium 3.8 3.6 Chloride 90 L 92 L Carbon Dioxide 28 30 BUN 102 H 96 H Creatinine 3.21 H 2.70 H D Glucose 217 H 139 H Calcium 8.3 L 9.0 Liver Function 10/13/18 Range/Units 06:09 Total Bilirubin 0.6 (0.2-1) mg/dl AST 19 (15-37) U/L ALT 23 (12-78) U/L Alkaline Phosphatase 53 (45-117) U/L Albumin 3.2 L (3.4-5.0) gm/dl Diagnostic Findings Microbiology 10/11/18 21:00 Urine,Clean Catch Urine Culture - Final No growth - less than 1,000 colonies/mL. 10/11/18 16:55 Blood Aerobic Blood Culture - Preliminary No growth in Aerobic bottle after 24 hours. 10/11/18 16:55 Blood Anaerobic Blood Culture - Preliminary No growth in Anaerobic bottle after 24 hours. 10/11/18 16:36 Blood Aerobic Blood Culture - Preliminary No growth in Aerobic bottle after 24 hours. 10/11/18 16:36 Blood Anaerobic Blood Culture - Preliminary No growth in Anaerobic bottle after 24 hours. 10/05/18 16:33 Blood Aerobic Blood Culture - Final No growth in Aerobic bottle after 5 days. 10/05/18 16:33 Blood Anaerobic Blood Culture - Final No growth in Anaerobic bottle after 5 days. 10/05/18 16:41 Blood Aerobic Blood Culture - Final No growth in Aerobic bottle after 5 days. 10/05/18 16:41 Blood Anaerobic Blood Culture - Final No growth in Anaerobic bottle after 5 days. 10/04/18 22:19 Blood Aerobic Blood Culture - Final No growth in Aerobic bottle after 5 days. 10/04/18 22:19 Blood Anaerobic Blood Culture - Final No growth in Anaerobic bottle after 5 days. 10/04/18 22:25 Blood Aerobic Blood Culture - Final No growth in Aerobic bottle after 5 days. 10/04/18 22:25 Blood Anaerobic Blood Culture - Final No growth in Anaerobic bottle after 5 days. 10/04/18 21:53 Urine,Clean Catch Urine Culture - Final Escherichia coli Ordering Phy: Steve Merino MD cc: ~ RENAL ULTRASOUND CLINICAL HISTORY: ARF; h/o renal stones; assess stones, hydro, etc COMPARISON STUDY: Renal ultrasound January 17, 2015. CTA of the abdomen and pelvis February 25, 2017. TECHNIQUE: Sonography of the kidneys and the urinary bladder was performed. FINDINGS: Right kidney measures 11.1 cm in maximal dimension and the left measures 12.3 cm. There is no hydronephrosis. Bilateral renal cysts measure up to 4.5 cm. No calculi are identified by sonography. A Ruth balloon is present within the bladder which is largely collapsed. Mild to moderate right renal cortical thinning is noted. IMPRESSION: 1. No hydronephrosis. 2. Mild to moderate right renal cortical thinning. 3. Multiple bilateral renal cysts. PG Care Time/CCT Total # of Minutes Spent Total Time Spent with Patient: Total time spent is greater than 50% in coordination of care (as documented) at patient's floor/unit and/or counseling patient: (1) UTI (urinary tract infection) Hematuria presence: without hematuria Urinary tract infection type: site unspecified Qualified Code(s): N39.0 - Urinary tract infection, site not specified
[2018-10-13] MEDS: HEPARIN SODIUM/DEXTROSE 25,000 UNITS/500 ML BAG IV SCH (20:17)
[2018-10-13] MEDS: INSULIN GLARGINE SOLOSTAR 100 UNITS/ML 3 ML PEN SC SCH (20:21)
[2018-10-13] MEDS: TAMSULOSIN HCL 0.4 MG CAP PO SCH (20:21)
--- NOTE | 2018-10-13 20:37 | Hospitalist Progress Note ---
Date of Service October 13, 2018 Assessment & Plan (1) Acute renal failure due to tubular necrosis: Resolving nicely. Nonoliguric/ acid-base status acceptable. Continue to hold lasix. Repeat BMP in am. Renal u/s obtained today to r/o any obstruction, renal stone, hydronephrosis, etc -- all negative. (2) Gross hematuria: appreciate urology eval. suspected to be multifactorial - UTI, anticoagulation, alicea trauma in setting of BPH, etc. cbc stable. urology to simply observe for resolution. consider d/c alicea tomorrow with spontaneous voiding trial then. (3) Acute embolic stroke: left frontal lobe CVA and punctate right cerebellar CVA on MRI brain. dual circulation strokes c/w embolic - suspect from meganfib - as his INR was <2 for multiple days prior to the event. remains on heparin infusion w/ coumadin. appreciate neuro, PT, OT, and speech evals. cont supportive care. avoid hypotension. needs rehab. (4) Atrial fibrillation, rapid: improved with diltiazem drip. transition to diltiazem cd 120mg daily and then d/c the dilt drip. (5) UTI (urinary tract infection): 2nd to e.coli. remains on cefdinir renally dosed. day #9 of abx. appreciate ID consult. consider JN to r/o prostatitis. plan 10 days of Rx if no prostatitis? leukocytosis slowly improving. (6) BPH (benign prostatic hyperplasia): s/p alicea insertion. continue flomax. appreciate urology consult. voiding trial in a few days. (7) Coronary atherosclerosis of [place] coronary vessel: s/p heart cath this admission with significant CAD. decision made to medically manage at this time. cont asa, statin. uncertain why he is not on beta gilberto -- strongly consider such. (8) Diabetic peripheral neuropathy associated with type 2 diabetes mellitus: renally dose the lyrica - changed to 75mg BID from 150mg TID. can resume normal dosing once Cr has normalized. pharmacy managing his glycemic control. appreciate their assistance. (9) Stage III chronic kidney disease: baseline Cr about 1.6. now with ARF/GRACIE as above. bmp am. (10) H/O aortic valve replacement: noted bioprosthetic recent echo with preserved valve function (11) Acute on chronic diastolic (congestive) heart failure: acute component resolved. then was likely volume contracted. lasix on hold. appreciate cardiology assistance. volume status still acceptable today. (12) Hyponatremia: likely 2nd to acute renal failure. BMPs stable. (13) Hypertension: controlled. recent hypotension resolved. (14) Mixed hyperlipidemia: statin (15) DVT prophylaxis: heparin drip w/ coumadin check INR am updated and daughter at bedside today progressing nicely Subjective pt feels better today. speech improving. tele with boby, rates largely controlled. no cp, no orthopnea, no dyspnea. eating well today. no flank or abd pain today. patient reports h/o kidney stone years ago - it was difficult for him to tell me details of this. had flank pain earlier this summer. family updated at bedside later in the day. pt/family still hoping for [facility] at d/c. Review of Systems Constitutional: no fever and no chills Respiratory: no cough, no dyspnea and no dyspnea on exertion Cardiovascular: no chest pain, no orthopnea, no paroxysmal nocturnal dyspnea and no palpitations Gastrointestinal: no abdominal pain, no nausea and no vomiting Physical Exam Constitutional: + obese; no acute distress speech more fluent today; no receptive aphasia ENMT: external ear and nose normal, oropharynx normal Respiratory: normal respiratory effort, lungs clear to auscultation Cardiovascular: Rate/Rhythm: regular rate and + irregularly irregular Heart Sounds: normal S1 and normal S2; no murmur Vessels: posterior tibial pulses present and dorsalis pedis pulses present; no JVD Extremities: no edema Gastrointestinal (Abdomen): Inspection/Auscultation: normal bowel sounds; abdomen not distended Percussion/Palpation: abdomen soft; abdomen nontender and no hepatosplenomegaly no flank tenderness Neurologic: no focal motor deficits (strength 5/5 x 4 exts -- maybe slight weakness right hand but only slight ) Speech / Cognition: + expressive aphasia; no receptive aphasia Motor/Sensory: + asterixis (with tremor) Psychiatric: Orientation: alert Results & Data Vital Signs (Past 12 Hours) Vital Signs Temp Pulse Resp BP Pulse Ox 10/13/18 19:53 36.9 C 84 20 116/63 96 10/13/18 16:58 36.8 C 92 H 22 101/75 96 10/13/18 11:20 36.4 C L 93 H 20 97/62 L 99 10/13/18 11:12 98 Laboratory Results Laboratory Results - last 24 hr 10/12/18 10/12/18 10/13/18 21:11 21:19 06:09 WBC 16.84 H RBC 4.69 L Hgb 13.8 L Hct 39.6 L MCV 84.4 MCH 29.4 MCHC 34.8 RDW Std Deviation 44.1 RDW Coeff of Romulo 14.3 Plt Count 236 MPV 11.1 H PT INR APTT PTT Ratio Sodium 130 L Potassium 3.8 Chloride 90 L Carbon Dioxide 28 Anion Gap 12.0 H BUN 102 H Creatinine 3.21 H Est Cr Clr Drug Dosing 23.6 Est GFR ( Amer) 21.8 Est GFR (Non-Af Amer) 18.8 BUN/Creatinine Ratio 31.8 H Glucose 217 H POC Glucose Osmolality 309 H Calcium 8.3 L Total Bilirubin AST ALT Alkaline Phosphatase Total Protein Albumin Globulin Albumin/Globulin Ratio 10/13/18 10/13/18 10/13/18 06:09 06:09 07:11 WBC RBC Hgb Hct MCV MCH MCHC RDW Std Deviation RDW Coeff of Romulo Plt Count MPV PT 14.2 H INR 1.4 H APTT 49.1 H* PTT Ratio 1.8 Sodium 133 L Potassium 3.6 Chloride 92 L Carbon Dioxide 30 Anion Gap 11.0 BUN 96 H Creatinine 2.70 H D Est Cr Clr Drug Dosing 28.1 Est GFR ( Amer) 26.9 Est GFR (Non-Af Amer) 23.2 BUN/Creatinine Ratio 35.5 H Glucose 139 H POC Glucose 162 H Osmolality Calcium 9.0 Total Bilirubin 0.6 AST 19 ALT 23 Alkaline Phosphatase 53 Total Protein 6.9 Albumin 3.2 L Globulin 3.7 Albumin/Globulin Ratio 0.9 10/13/18 10/13/18 10/13/18 11:18 16:27 20:19 WBC RBC Hgb Hct MCV MCH MCHC RDW Std Deviation RDW Coeff of Romulo Plt Count MPV PT INR APTT PTT Ratio Sodium Potassium Chloride Carbon Dioxide Anion Gap BUN Creatinine Est Cr Clr Drug Dosing Est GFR ( Amer) Est GFR (Non-Af Amer) BUN/Creatinine Ratio Glucose POC Glucose 296 H 206 H 186 H Osmolality Calcium Total Bilirubin AST ALT Alkaline Phosphatase Total Protein Albumin Globulin Albumin/Globulin Ratio PG Care Time/CCT Total # of Minutes Spent Total Time Spent with Patient: Total time spent is greater than 50% in coordination of care (as documented) at patient's floor/unit and/or counseling patient: (1) UTI (urinary tract infection) Hematuria presence: without hematuria Urinary tract infection type: site unspecified Qualified Code(s): N39.0 - Urinary tract infection, site not specified (2) BPH (benign prostatic hyperplasia) Lower urinary tract symptom detail: unspecified Lower urinary tract symptom presence: symptoms present Qualified Code(s): N40.1 - Benign prostatic hyperplasia with lower urinary tract symptoms (3) Coronary atherosclerosis of [place] coronary vessel Associated angina: without angina [place] vs. transplanted heart: [place] heart Qualified Code(s): I25.10 - Atherosclerotic heart disease of [place] coronary artery without angina pectoris (4) Hypertension Hypertension type: essential hypertension Qualified Code(s): I10 - Essential (primary) hypertension
[2018-10-14 05:35] LABS: Partial Thromboplastin Ratio 1.6; Partial Thromboplastin Time 43.7 Seconds (21.0-31.0)
[2018-10-14] MEDS ORDERED: HEPARIN IV BOLUS 3,000 UNITS in SYRINGE 0 ML IV ONE (05:45)
[2018-10-14 05:56] LABS: Creatinine Clr Calc Pharmacy 35.6 ml/min; Est GFR (African American) 35.6; Est GFR (Non-African American) 30.7
[2018-10-14] MEDS: CEFDINIR 300 MG CAP PO SCH ×2 (08:19→22:28)
[2018-10-14] MEDS: predniSONE 20 MG TAB PO SCH (08:19)
[2018-10-14] MEDS: CHOLECALCIFEROL 1,000 UNITS TAB PO SCH (08:19)
[2018-10-14] MEDS: ASPIRIN 81 MG ECTAB PO SCH (08:20)
[2018-10-14] MEDS: dilTIAZem HCL 120 MG CAPCR PO SCH (08:20)
[2018-10-14] MEDS: CYANOCOBALAMIN (VITAMIN B-12) 100 MCG TABLET PO SCH (08:20)
[2018-10-14] MEDS: FLUTICASONE HFA 220 MCG INHALER INH SCH ×2 (08:20→22:28)
[2018-10-14] MEDS: ROSUVASTATIN CALCIUM 5 MG TAB PO SCH (08:20)
[2018-10-14] MEDS: INSULIN ASPART 100 UNITS/ML 3 ML PEN SC SCH ×4 (08:21→22:30)
[2018-10-14] MEDS: FENOFIBRATE NANOCRYSTALLIZED 48 MG TABLET PO SCH (08:21)
[2018-10-14] MEDS: PREGABALIN 75 MG CAP PO SCH ×2 (08:27→22:40)
[2018-10-14 08:50] LABS: INR 1.4 (0.9-1.1); Prothrombin Time 14.1 Seconds (9.0-12.0)
[2018-10-14] MEDS ORDERED: INSULIN HUMAN NPH SC SCH (09:00)
--- NOTE | 2018-10-14 10:28 | Pharmacy Report ---
Pharmacy Glycemic Short Note 2 - Date of Service October 14, 2018 - Glycemic Short BSG Results (Last 24 hours): 10/13/18 10/13/18 10/13/18 11:18 16:27 20:19 POC Glucose 296 H 206 H 186 H 10/14/18 07:34 POC Glucose 84 OUTPATIENT ANTIDIABETIC REGIMEN: * Tresiba 60 units SC HS * Insulin aspart 30-35 units SC TIDM * A1c = 5.9 % on 10/05/18 CURRENT INPATIENT REGIMEN: * Basal insulin: Lantus 60 units SQ HS + NPH 10 units SQ daily (given with prednisone) * Correctional Insulin: Novolog Correction per scale ACHS Goal Range: Low 110 mg/dL - High 140 mg/dL Correction Factor: 10 mg/dL/unit with all meals except dinner correction factor: 9 mg/dl/unit with dinner * Prandial insulin: Per carb ratio of 1 unit per 4 grams CHO consumed for all meals except dinner Per carb ratio of 1 unit per 3 grams CHO consumed at dinner ASSESSMENT: * AM fasting BSG was slightly below goal. Dose of AM Lantus has remained unchanged for the past 7 days therefore I will continue same dosing for now and decrease only if fasting BSG remains consistently < 100 mg/dL. * Post-prandial BSGs remain elevated secondary to prednisone but they are trending downward. * Continue NPH to counteract the hyperglycemic effect of prednisone. * Will increase NPH dose by 20% * No changes will be made to Novolog parameters PLAN FOR INPATIENT GLYCEMIC CONTROL: * Basal insulin * Lantus 60 units SQ HS * Bolus insulin- no change * NovoLog per scale ACHS or Q6hrs while NPO * Goal Range: Low 110 mg/dL - High 140 mg/dL * Correction Factor: 10 mg/dL/unit for all BSG checks except dinnertime coverage which will be 9mg/dL/unit * Nutritional / Prandial insulin per carb ratio of 1 unit per 4 grams CHO consumed for breakfast and lunch, 1 unit per 3gms CHO consumed w/ dinner * Steroid incuded hyperglycemia * Increase NPH to 12 units (0.12 units/kg) to be given with prednisone PLAN FOR DISCHARGE: * A1c 5.9%, continue home regimen as long as patient not experiencing hypoglycemia at home.
--- NOTE | 2018-10-14 11:11 | Cardiology Progress Note ---
Date of Service October 14, 2018 Assessment & Plan (1) Acute embolic stroke: --Acute left frontal CVA and punctate right cerebellar hemispheric CVA post cardiac catheterization 2. AF with RVR-- rate improved and now on PO diltiazem 3. GRACIE 4. Small vessel CAD 5. Diastolic heart failure 6. Post mitral valve repair for severe mitral regurgitation 2007--mild MR on echo at [facility] 07/2018 7. Chronic infrarenal aortic dissection--found incidentally, seen by Dr. Keller 8. Interstitial lung disease Patient continues to improve. No new neurological symptoms and neurology, PT/OT/speech therapy involved. Heart rate has been overall well controlled on PO diltiazem. Renal function and urine output continue to improve. On exam he appears well perfused without signs of heart failure. No anginal symptoms. Recommend the following: --Continue PO diltiazem for rate control, can titrate as needed. Was on 180 bid outpatient --Continue to hold Lasix, monitor I&Os --Continue heparin infusion, warfarin has been restarted but INR still subtherapeutic --Continue ASA, statin --Medical management for small vessel CAD Subjective Patient feeling well overall. He feels his confusion has improved. He does mention some left lower quadrant abdominal pain this morning. Appetite is good. No nausea, vomiting or diarrhea. No chest pain, shortness of breath, orthopnea or PND. No headache. Was switched to PO diltiazem yesterday. Tele reviewed-- atrial fibrillation with rate 90-low 100s this morning Review of Systems Review of Systems: All systems reviewed & are unremarkable except as noted in HPI & below Physical Exam Physical Exam: General: No acute distress, comfortable. HEENT: Head is normal. PERRLA. EOMI. Sclerae anicteric. Neck: Normal carotid upstrokes, no bruits. No appreciable JVD. Lungs: Fine bibasilar crackles (chronic). Cardiac: Irregular. S1-S2 normal. No appreciable murmur, gallop or rub. Extremities/vascular: --Well perfused. No peripheral edema. --Right radial access site with ecchymosis. Distal pulse and sensation intact. Neurologic: +Expressive aphasia. Follows commands. Moves all extremities. Strength equal bilaterally. Results & Data Vital Signs (Past 12 Hours) Vital Signs Temp Pulse Resp BP Pulse Ox 10/14/18 07:45 37.1 C 92 H 20 104/62 95 10/14/18 03:51 36.9 C 111 H 17 108/80 98 10/13/18 23:25 36.4 C L 91 H 18 118/81 96 Laboratory Results Laboratory Results - last 24 hr 10/13/18 10/13/18 10/13/18 11:18 16:27 20:19 PT INR APTT PTT Ratio Creatinine Est Cr Clr Drug Dosing Est GFR ( Amer) Est GFR (Non-Af Amer) POC Glucose 296 H 206 H 186 H 10/14/18 10/14/18 10/14/18 05:00 05:00 05:00 PT 14.1 H INR 1.4 H APTT 43.7 H PTT Ratio 1.6 Creatinine 2.14 H D Est Cr Clr Drug Dosing 35.6 Est GFR ( Amer) 35.6 Est GFR (Non-Af Amer) 30.7 POC Glucose 10/14/18 07:34 PT INR APTT PTT Ratio Creatinine Est Cr Clr Drug Dosing Est GFR ( Amer) Est GFR (Non-Af Amer) POC Glucose 84 PG Care Time/CCT Total # of Minutes Spent Total Time Spent with Patient: Total time spent is greater than 50% in coord ination of care (as documented) at patient's floor/unit and/or counseling patient:
--- NOTE | 2018-10-14 11:18 | Medical Student Progress Note ---
Date of Service October 14, 2018 Assessment & Plan Treatment Plan (1)Acute renal failure due to tubular necrosis urine appears to be less muddy- brown today, creatinine has decreased to 2.14. Continue to monitor and give IV fluids, hold Lasix/avoid hypotension. (2)Gross hematuria/UTI - urine is orange-pink, no urinary urgency/frequency/pain. WBC improving (16.84 today) Continue cefdinir and urology observation. (3)Acute embolic stroke - left frontal lobe CVA and punctate right cerebellar CVA on MRI brain confusion seems reduced today, dysarthria resolved and expressive aphasia much improved, slight dysdiadochokinesia in the right upper extremity but motor function drastically improved. remain on heparin infusion w/ coumadin for prevention; continue supportive care. (4)Atrial fibrillation, RVR HR trending down for the most part, no palpitations Continue on PO diltiazem (5)Coronary atherosclerosis of LAD determined to have 80-90% LAD disease on cath. Continue to medically manage with aspirin and statin (increased to high dose for prevention), consider addition of beta gilberto. (6) Type 2 DM/Retinopathy + Neuropathy - Blood sugars under better control but slightly elevated post-prandially (84 and 160) pharmacy will continue to manage (7) CHF no sign/symptoms (edema, JVD) volume status seems good Continue to hold Lasix (8) Hyponatremia - No new sodium value today; however, was trending up as of yesterday. Continue to monitor. Order sodium level. (9) DVT prophylaxis - INR remains at 1.4, outside of therapeutic range Continue heparin + coumadin and monitor INR Subjective Patient is a 68 year old male with a history of atrial fibrillation, congestive heart failure, diabetes mellitus types II, hypertension, and hyperlipidemia who presented to the Emergency Department 7 days ago with concerns of urinary frequency and incontinence, fevers and chills, shortness of breath, and memory dysfunction. Since that time, he was determined to have a UTI which was treated with IV ceftriaxone followed by PO cefdinir. Cardiac catheterization revealed severe apical LAD disease. Anticoagulation was stopped prior to this procedure and the patient developed acute stroke-like symptoms including dysarthria and expressive aphasia as well as right-sided weakness. This was determined to be due to a left posterior frontal acute CVA and a punctate acute right cerebellar hemispheric CVA. Patient rested comfortably overnight. He ate a full dinner last night and breakfast this morning and does not endorse any nausea, vomiting, diarrhea, constipation. He does, however, endorse an achy LLQ pain which began this morning prior to eating breakfast. The pain was not reproducible on palpation. He was able to move his bowels again last night and endorses a formed stool. He states that he is overall feeling less confused today and is in better spirits since his family visited yesterday. He states that he does not have a headache. He does not endorse any palpitations, chest pain, or dyspnea. He states that he does not have any pain on urination or increased frequency or urgency. Review of Systems Constitutional: no fever, no chills, no sweats, no malaise and no insomnia Respiratory: no cough and no dyspnea Cardiovascular: no chest pain, no dyspnea and no palpitations Gastrointestinal: as per Subjective / HPI Genitourinary: + hematuria; no dysuria, no difficulty urinating, no urinary frequency and no urinary incontinence Neurologic: as per Subjective / HPI Physical Exam Physical Exam: HEENT Normocephalic atraumatic; no edema, erythema, or white exudate present in the mouth or back of throat. Pulmonary No respiratory distress or increased respiratory effort. Lungs largely clear bilaterally to auscultation with no wheezes or rhonchi. Some very slight crackles appreciated at the base of the right lung. Cardiac Irregularly irregular rhythm. Tachycardic. No rubs, murmurs, or gallops. No peripheral edema appreciated. Pedal pulses appreciated. Abdomen Bowel sounds normal. Abdomen soft, no hepatosplenomegaly or tenderness on palpation. Skin Warm, pink, and dry. Neuro A&O x3. Diminishing dysarthria, expressive aphasia largely improved. Patient was able to respond to all questions and was less confused. Mild dysdiadochokinesia present in the right hand. Sensation appears to be intact bilaterally. Genitourinary - Urine appeared orange-pink. Results & Data Vital Signs (Past 12 Hours) Vital Signs Temp Pulse Resp BP Pulse Ox 10/14/18 07:45 37.1 C 92 H 20 104/62 95 10/14/18 03:51 36.9 C 111 H 17 108/80 98 10/13/18 23:25 36.4 C L 91 H 18 118/81 96 Laboratory Results WBC: 16.84 H-H: 13.8 - 39.6 Cr: 2.14 INR: 1.4 Pre-Prandial Glucose: 84 Post-Prandial Glucose: 160
--- NOTE | 2018-10-14 11:41 | Medical Student Progress Note ---
Date of Service October 13, 2018 Results & Data Vital Signs (Past 12 Hours) Vital Signs Temp Pulse Resp BP Pulse Ox 10/13/18 11:20 36.4 C L 93 H 20 97/62 L 99 10/13/18 11:12 98 10/13/18 07:13 36.4 C L 100 H 20 113/82 99 10/13/18 07:06 36.9 C 90 19 132/81 98 10/13/18 03:20 36.9 C 90 18 106/73 97
[2018-10-14 11:53] LABS: Partial Thromboplastin Ratio 2.3
[2018-10-14 11:56] LABS: Partial Thromboplastin Time 62.5 Seconds (21.0-31.0)
[2018-10-14] MEDS: HEPARIN SODIUM/DEXTROSE 25,000 UNITS/500 ML BAG IV SCH (15:58)
[2018-10-14] MEDS: WARFARIN SOD 3 MG TAB PO SCH (15:59)
[2018-10-14] MEDS ORDERED: WARFARIN SOD 3 MG TAB PO ONE (16:00)
--- NOTE | 2018-10-14 16:00 | Infectious Disease Progress Nt ---
Date of Service October 14, 2018 Assessment & Plan (1) UTI (urinary tract infection): Patient with E. coli urinary tract infection now with acute embolic CVA. Appears to be making slow progress, continue present treatment. We will continue to follow. (2) Escherichia coli infection: Subjective Patient seen in follow-up for E. coli UTI. Feeling better today. Complaining of some mild left lower quadrant pain. No nausea or vomiting. No significant diarrhea. Remains afebrile. Review of Systems Review of Systems: All systems reviewed & are unremarkable except as noted in HPI & below Physical Exam Constitutional: WD/WN, vitals as above comfortable; no acute distress Eyes: PERRL, conjunctivae normal, anicteric sclerae ENMT: external ear and nose normal, oropharynx normal Neck: trachea midline, no thyromegaly neck nontender Respiratory: normal respiratory effort, lungs clear to auscultation normal percussion; does not use accessory muscles Cardiovascular: Rate/Rhythm: regular rate and regular rhythm Heart Sounds: normal S1 and normal S2; no gallop, no murmur and no cardiac rub Vessels: normal peripheral pulses; no JVD Gastrointestinal (Abdomen): normal bowel sounds, soft, nontender, no hepatosplenomegaly Musculoskeletal: no cyanosis or clubbing, extremities motor strength 5/5 Spine: thoracic spine normal to inspection and lumbar spine normal to inspection; no cervical spinal tenderness Skin: no rashes, warm and dry normal turgor; no lesions Neurologic: patellar DTR's 2+ bilat, sensation intact awake Speech / Cognition: + expressive aphasia Psychiatric: A+Ox3, euthymic affect Orientation: cooperative Lymphatic: no cervical or axillary lymphadenopathy no inguinal lymphadenopathy Results & Data Vital Signs (Past 12 Hours) Vital Signs Temp Pulse Resp BP Pulse Ox 10/14/18 15:48 37 C 86 18 122/73 94 10/14/18 11:51 36.7 C 109 H 20 112/73 97 10/14/18 07:45 37.1 C 92 H 20 104/62 95 Laboratory Results [facility] 10/14/18 05:00 Creatinine 2.14 H D Diagnostic Findings Microbiology 10/11/18 16:55 Blood Aerobic Blood Culture - Preliminary No growth in Aerobic bottle after 48 hours. 10/11/18 16:55 Blood Anaerobic Blood Culture - Preliminary No growth in Anaerobic bottle after 48 hours. 10/11/18 16:36 Blood Aerobic Blood Culture - Preliminary No growth in Aerobic bottle after 48 hours. 10/11/18 16:36 Blood Anaerobic Blood Culture - Preliminary No growth in Anaerobic bottle after 48 hours. 10/11/18 21:00 Urine,Clean Catch Urine Culture - Final No growth - less than 1,000 colonies/mL. 10/05/18 16:33 Blood Aerobic Blood Culture - Final No growth in Aerobic bottle after 5 days. 10/05/18 16:33 Blood Anaerobic Blood Culture - Final No growth in Anaerobic bottle after 5 days. 10/05/18 16:41 Blood Aerobic Blood Culture - Final No growth in Aerobic bottle after 5 days. 10/05/18 16:41 Blood Anaerobic Blood Culture - Final No growth in Anaerobic bottle after 5 days. 10/04/18 22:19 Blood Aerobic Blood Culture - Final No growth in Aerobic bottle after 5 days. 10/04/18 22:19 Blood Anaerobic Blood Culture - Final No growth in Anaerobic bottle after 5 days. 10/04/18 22:25 Blood Aerobic Blood Culture - Final No growth in Aerobic bottle after 5 days. 10/04/18 22:25 Blood Anaerobic Blood Culture - Final No growth in Anaerobic bottle after 5 days. 10/04/18 21:53 Urine,Clean Catch Urine Culture - Final Escherichia coli PG Care Time/CCT Total # of Minutes Spent Total Time Spent with Patient: Total time spent is greater than 50% in coordination of care (as documented) at patient's floor/unit and/or counseling patient: (1) UTI (urinary tract infection) Hematuria presence: without hematuria Urinary tract infection type: site unspecified Qualified Code(s): N39.0 - Urinary tract infection, site not specified
[2018-10-14] MEDS: TAMSULOSIN HCL 0.4 MG CAP PO SCH (22:30)
[2018-10-14] MEDS: INSULIN GLARGINE SOLOSTAR 100 UNITS/ML 3 ML PEN SC SCH (22:31)
--- NOTE | 2018-10-15 04:02 | Hospitalist Progress Note ---
Date of Service October 14, 2018 Assessment & Plan (1) Acute renal failure due to tubular necrosis: Continues to improve. Continue to hold lasix. Repeat BMP in am. Renal u/s without obstruction, renal stone, hydronephrosis, etc. (2) Gross hematuria: resolved. suspected to be multifactorial - UTI, anticoagulation, alicea trauma in setting of BPH, etc. cbc stable. d/c alicea tomorrow; voiding trial then. (3) Acute embolic stroke: left frontal lobe CVA and punctate right cerebellar CVA on MRI brain. dual circulation strokes c/w embolic - suspect from meganfib - as his INR was <2 for multiple days prior to the event. remains on heparin infusion w/ coumadin. appreciate neuro, PT, OT, and speech evals. cont supportive care. (4) Atrial fibrillation, rapid: cont diltiazem cd - titrate to 180mg in am. INR has been 1.3 to 1.4 for several days -- will give 6 mg today, then repeat INR am. (5) UTI (urinary tract infection): 2nd to e.coli. remains on cefdinir -- day #10 of abx. appreciate ID consult. consider JN to r/o prostatitis. plan 10 days of Rx if no prostatitis? repeat CBC am. (6) BPH (benign prostatic hyperplasia): s/p alicea insertion. continue flomax. appreciate urology consult. voiding trial tomorrow. (7) Coronary atherosclerosis of [place] coronary vessel: s/p heart cath this admission with significant CAD. decision made to medically manage at this time. cont asa, statin - increase crestor to 20mg daily. uncertain why he is not on beta gilberto -- strongly consider such. (8) Diabetic peripheral neuropathy associated with type 2 diabetes mellitus: cont renally dosed lyrica. can resume normal dosing once Cr has normalized. pharmacy managing his glycemic control. control very satisfactory. appreciate their assistance. (9) Stage III chronic kidney disease: baseline Cr about 1.6. now with ARF/GRACIE as above. bmp am. (10) H/O aortic valve replacement: noted bioprosthetic recent echo with preserved valve function (11) Acute on chronic diastolic (congestive) heart failure: acute component resolved. still euvolemic. lasix on hold due to ATN/GRACIE. appreciate cardiology assistance. (12) Hyponatremia: likely 2nd to acute renal failure. BMP in am. (13) Hypertension: controlled. (14) Mixed hyperlipidemia: statin but increase the crestor to 20mg daily. (15) DVT prophylaxis: heparin drip w/ coumadin check INR am left message for 10/14 progressing nicely letter for family completed today d/c tomorrow if creatinine normalized and INR near 2? Subjective patient feeling well today. tele with a.fib, rates largely controlled. eating well. alicea with clear urine; hematuria resolved. speech/aphasia MUCH improved. denies any motor weakness. no cp, no dyspnea, no cough, no orthopnea. Review of Systems Constitutional: no fever and no chills Respiratory: no cough, no dyspnea and no dyspnea on exertion Cardiovascular: no chest pain Gastrointestinal: no abdominal pain, no nausea and no vomiting Physical Exam Constitutional: + obese; no acute distress speech much more fluent today ENMT: external ear and nose normal, oropharynx normal Respiratory: normal respiratory effort, lungs clear to auscultation Cardiovascular: Rate/Rhythm: regular rate and + irregularly irregular Heart Sounds: normal S1 and normal S2; no murmur Vessels: posterior tibial pulses present and dorsalis pedis pulses present; no JVD Extremities: no edema Gastrointestinal (Abdomen): Inspection/Auscultation: normal bowel sounds; abdomen not distended Percussion/Palpation: abdomen soft; abdomen nontender and no hepatosplenomegaly Neurologic: no focal motor deficits Speech / Cognition: no expressive aphasia and no receptive aphasia Motor/Sensory: + asterixis (with tremor - slightly improved today) Psychiatric: Orientation: alert Results & Data Vital Signs (Past 12 Hours) Vital Signs Temp Pulse Pulse Resp BP Pulse Ox 10/15/18 00:22 36.4 C L 91 H 18 128/71 96 10/14/18 22:20 88 10/14/18 20:16 36.6 C 94 H 18 102/73 95 Laboratory Results Laboratory Results - last 24 hr 10/14/18 10/14/18 10/14/18 05:00 05:00 05:00 PT 14.1 H INR 1.4 H APTT 43.7 H PTT Ratio 1.6 Creatinine 2.14 H D Est Cr Clr Drug Dosing 35.6 Est GFR ( Amer) 35.6 Est GFR (Non-Af Amer) 30.7 POC Glucose 10/14/18 10/14/18 10/14/18 07:34 11:10 11:19 PT INR APTT 62.5 H* PTT Ratio 2.3 Creatinine Est Cr Clr Drug Dosing Est GFR ( Amer) Est GFR (Non-Af Amer) POC Glucose 84 160 H 10/14/18 10/14/18 16:21 21:02 PT INR APTT PTT Ratio Creatinine Est Cr Clr Drug Dosing Est GFR ( Amer) Est GFR (Non-Af Amer) POC Glucose 164 H 193 H PG Care Time/CCT Total # of Minutes Spent Total Time Spent with Patient: Total time spent is greater than 50% in coordination of care (as documented) at patient's floor/unit and/or counseling patient: (1) UTI (urinary tract infection) Hematuria presence: without hematuria Urinary tract infection type: site unspecified Qualified Code(s): N39.0 - Urinary tract infection, site not specified (2) BPH (benign prostatic hyperplasia) Lower urinary tract symptom presence: symptoms present Lower urinary tract symptom detail: unspecified Qualified Code(s): N40.1 - Benign prostatic hyperplasia with lower urinary tract symptoms (3) Coronary atherosclerosis of [place] coronary vessel [place] vs. transplanted heart: [place] heart Associated angina: without angina Qualified Code(s): I25.10 - Atherosclerotic heart disease of [place] coronary artery without angina pectoris (4) Hypertension Hypertension type: essential hypertension Qualified Code(s): I10 - Essential (primary) hypertension
[2018-10-15 06:43] LABS: Hematocrit (blood only) 42.8 % (42-52); Hemoglobin 14.9 g/dL (14.0-18.0); Mean Corpuscular Hemoglobin 29.6 pg (25-34); Mean Corpuscular Hgb Conc 34.8 g/dL (32-36); Mean Corpuscular Volume 85.1 fL (80-100); Platelet Count 210 K/uL (130-400); RDW Coefficient of Variation 14.5 % (11.5-14.5); RDW Standard Deviation 44.9 fL (36.4-46.3); Red Blood Count 5.03 M/uL (4.7-6.1); White Blood Count 18.07 K/uL (4.8-10.8)
[2018-10-15 06:53] LABS: INR 1.3 (0.9-1.1); Partial Thromboplastin Ratio 1.6; Partial Thromboplastin Time 42.5 Seconds (21.0-31.0); Prothrombin Time 13.4 Seconds (9.0-12.0)
[2018-10-15 07:10] LABS: BUN Creatinine Ratio 32.9 (10-20); Calcium 9.6 mg/dl (8.5-10.1); Creatinine Clr Calc Pharmacy 39.2 ml/min; Est GFR (African American) 40.3; Est GFR (Non-African American) 34.8
[2018-10-15] MEDS: FLUTICASONE HFA 220 MCG INHALER INH SCH ×2 (07:59→21:26)
[2018-10-15] MEDS: FENOFIBRATE NANOCRYSTALLIZED 48 MG TABLET PO SCH (07:59)
[2018-10-15] MEDS: CYANOCOBALAMIN (VITAMIN B-12) 100 MCG TABLET PO SCH (07:59)
[2018-10-15] MEDS: CHOLECALCIFEROL 1,000 UNITS TAB PO SCH (08:00)
[2018-10-15] MEDS: dilTIAZem HCL 180 MG CAPCR PO SCH (08:01)
[2018-10-15] MEDS: ASPIRIN 81 MG ECTAB PO SCH (08:01)
[2018-10-15] MEDS: INSULIN ASPART 100 UNITS/ML 3 ML PEN SC SCH ×5 (08:04→21:27)
[2018-10-15] MEDS: PREGABALIN 75 MG CAP PO SCH ×2 (08:15→21:33)
[2018-10-15] MEDS: CEFDINIR 300 MG CAP PO SCH ×2 (08:20→21:27)
[2018-10-15] MEDS ORDERED: HEPARIN IV BOLUS 3,000 UNITS in SYRINGE 0 ML IV ONE (09:30)
[2018-10-15] MEDS: ROSUVASTATIN CALCIUM 20 MG TAB PO SCH (10:57)
[2018-10-15] MEDS: HEPARIN SODIUM/DEXTROSE 25,000 UNITS/500 ML BAG IV SCH (12:50)
--- NOTE | 2018-10-15 14:15 | Pharmacy Report ---
Pharmacy Glycemic Short Note 2 - Date of Service October 15, 2018 - Glycemic Short BSG Results (Last 24 hours): 10/14/18 10/14/18 10/15/18 16:21 21:02 06:21 Glucose 54 L POC Glucose 164 H 193 H 10/15/18 10/15/18 10/15/18 07:27 07:28 08:09 Glucose POC Glucose 67 L* 70 96 10/15/18 11:15 Glucose POC Glucose 194 H OUTPATIENT ANTIDIABETIC REGIMEN: * Tresiba 60 units SC HS * Insulin aspart 30-35 units SC TIDM * A1c = 5.9 % on 10/05/18 CURRENT INPATIENT REGIMEN: * Basal insulin: Lantus 60 units SQ HS + NPH 12 units SQ daily (given with prednisone) * Correctional Insulin: Novolog Correction per scale ACHS Goal Range: Low 110 mg/dL - High 140 mg/dL Correction Factor: 10 mg/dL/unit with all meals except dinner correction factor: 9 mg/dl/unit with dinner * Prandial insulin: Per carb ratio of 1 unit per 4 grams CHO consumed for all meals except dinner Per carb ratio of 1 unit per 3 grams CHO consumed at dinner ASSESSMENT: 10/15: * Mr. Babb received 125 units of insulin on 10/14 with excellent glycemic control * He has completed his course of prednisone therefore NPH will be discontinued and the separate CF/CR for dinner will be adjusted. * Fasting BSG has been trending downward the past two days (162 -> 84 -> 70), therefore Lantus dose will be reduced 20%. 10/14: * AM fasting BSG was slightly below goal. Dose of AM Lantus has remained unchanged for the past 7 days therefore I will continue same dosing for now and decrease only if fasting BSG remains consistently < 100 mg/dL. * Post-prandial BSGs remain elevated secondary to prednisone but they are trending downward. * Continue NPH to counteract the hyperglycemic effect of prednisone. * Will increase NPH dose by 20% * No changes will be made to Novolog parameters PLAN FOR INPATIENT GLYCEMIC CONTROL: * Basal insulin - decrease * Lantus 48 units SQ HS * Discontinue NPH * Bolus insulin * NovoLog per scale ACHS or Q6hrs while NPO * Goal Range: Low 110 mg/dL - High 140 mg/dL * Correction Factor: 10 mg/dL/unit * Nutritional / Prandial insulin per carb ratio of 1 unit per 4 grams CHO consumed PLAN FOR DISCHARGE: * A1c 5.9%, continue home regimen as long as patient not experiencing hy poglycemia at home.
[2018-10-15 15:55] LABS: Partial Thromboplastin Ratio 2.2
[2018-10-15] MEDS ORDERED: WARFARIN SOD 3 MG TAB PO ONE (16:00)
[2018-10-15 16:08] LABS: Partial Thromboplastin Time 60.1 Seconds (21.0-31.0)
[2018-10-15] MEDS: WARFARIN SOD 3 MG TAB PO SCH (17:31)
--- NOTE | 2018-10-15 18:44 | Hospitalist Progress Note ---
Date of Service October 15, 2018 Assessment & Plan (1) Acute renal failure due to tubular necrosis: Nearly resolved with creatinine almost to baseline. Continue to hold lasix. Perhaps resume in am. Repeat BMP in am. Renal u/s without obstruction, renal stone, hydronephrosis, etc. (2) Gross hematuria: resolved. suspected to be multifactorial - UTI, anticoagulation, alicea trauma in setting of BPH, etc. alicea d/c today; voiding w/o difficulty. CBC stable. (3) Acute embolic stroke: left frontal lobe CVA and punctate right cerebellar CVA on MRI brain. dual circulation strokes c/w embolic - suspect from ambrosio.fib - as his INR was <2 for multiple days prior to the event. remains on heparin infusion w/ coumadin. appreciate neuro, PT, OT, and speech evals. cont supportive care. (4) Atrial fibrillation, rapid: cont diltiazem cd - titrate to 180mg in am and 120mg HS. INR has been 1.3 to 1.4 for several days -- will give 6 mg today once again today with repeat INR am. (5) UTI (urinary tract infection): 2nd to e.coli. remains on cefdinir -- day #11 of abx. appreciate ID consult. consider JN to r/o prostatitis in am. (6) BPH (benign prostatic hyperplasia): continue flomax. appreciate urology consult. alicea d/c and voiding fine. (7) Coronary atherosclerosis of [place] coronary vessel: s/p heart cath this admission with significant CAD. decision made to medically manage at this time. cont asa, statin - increase crestor to 20mg daily. uncertain why he is not on beta gilberto -- strongly consider such. (8) Diabetic peripheral neuropathy associated with type 2 diabetes mellitus: cont renally dosed lyrica. can resume normal dosing once Cr has normalized. pharmacy managing his glycemic control. control very satisfactory. appreciate their assistance. (9) Stage III chronic kidney disease: baseline Cr about 1.6. GRACIE nearly resolved. bmp am. (10) H/O aortic valve replacement: noted bioprosthetic recent echo with preserved valve function (11) Acute on chronic diastolic (congestive) heart failure: acute component resolved. still euvolemic. lasix on hold due to ATN/GRACIE. appreciate cardiology assistance. likely resume lasix am. (12) Hyponatremia: likely 2nd to acute renal failure. nearly resolved. BMP in am. (13) Hypertension: controlled. (14) Mixed hyperlipidemia: statin - crestor 20mg daily (15) DVT prophylaxis: heparin drip w/ coumadin check INR am left message for 10/14 progressing nicely letter for family completed d/c tomorrow to [facility] - will check with social work to see if bed is still available Subjective patient without complaints. alicea removed; voiding fine; no gross hematuria. no cp, dyspnea, orthopnea. o2 sats wnl. tele overnight - rates fair (a.fib). speech clear; tolerating diet. Review of Systems Constitutional: no fever Cardiovascular: no chest pain Gastrointestinal: no abdominal pain, no nausea and no vomiting Genitourinary: no dysuria Physical Exam Constitutional: + obese; no acute distress ENMT: external ear and nose normal, oropharynx normal Respiratory: normal respiratory effort, lungs clear to auscultation Cardiovascular: Rate/Rhythm: regular rate and + irregularly irregular Heart Sounds: normal S1 and normal S2; no murmur Vessels: posterior tibial pulses present and dorsalis pedis pulses present; no JVD Extremities: no edema Gastrointestinal (Abdomen): Inspection/Auscultation: normal bowel sounds; abdomen not distended Percussion/Palpation: abdomen soft; abdomen nontender and no hepatosplenomegaly Neurologic: no focal motor deficits Speech / Cognition: no expressive aphasia and no receptive aphasia Psychiatric: Orientation: alert and oriented x 3 Results & Data Vital Signs (Past 12 Hours) Vital Signs Temp Pulse Resp BP Pulse Ox 10/15/18 15:10 36.6 C 95 H 18 113/91 96 10/15/18 11:03 36.8 C 116 H 20 134/81 95 10/15/18 07:39 36.4 C L 102 H 18 121/86 94 Laboratory Results Cr 1.7 INR 1.3 Hb 14.9 PG Care Time/CCT Total # of Minutes Spent Total Time Spent with Patient: Total time spent is greater than 50% in coordination of care (as documented) at patient's floor/unit and/or counseling patient: (1) UTI (urinary tract infection) Hematuria presence: without hematuria Urinary tract infection type: site unspecified Qualified Code(s): N39.0 - Urinary tract infection, site not specified (2) BPH (benign prostatic hyperplasia) Lower urinary tract symptom detail: unspecified Lower urinary tract symptom presence: symptoms present Qualified Code(s): N40.1 - Benign prostatic hyperplasia with lower urinary tract symptoms (3) Coronary atherosclerosis of [place] coronary vessel Associated angina: without angina [place] vs. transplanted heart: [place] heart Qualified Code(s): I25.10 - Atherosclerotic heart disease of [place] coronary artery without angina pectoris (4) Hypertension Hypertension type: essential hypertension Qualified Code(s): I10 - Essential (primary) hypertension
[2018-10-15] MEDS: dilTIAZem HCL 120 MG CAPCR PO SCH (21:25)
[2018-10-15] MEDS: TAMSULOSIN HCL 0.4 MG CAP PO SCH (21:26)
[2018-10-15] MEDS: INSULIN GLARGINE SOLOSTAR 100 UNITS/ML 3 ML PEN SC SCH (21:27)
[2018-10-16 05:09] LABS: Creatinine Clr Calc Pharmacy 43.5 ml/min; Est GFR (African American) 45.7; Est GFR (Non-African American) 39.4
[2018-10-16 05:32] LABS: Partial Thromboplastin Time 55.1 Seconds (21.0-31.0)
[2018-10-16 05:50] LABS: Hematocrit (blood only) 35.4 % (42-52); Hemoglobin 12.4 g/dL (14.0-18.0); Mean Corpuscular Hemoglobin 29.8 pg (25-34); Mean Corpuscular Volume 85.1 fL (80-100); Mean Platelet Volume 10.5 fL (7.4-10.4); Platelet Count 220 K/uL (130-400); RDW Coefficient of Variation 14.6 % (11.5-14.5); RDW Standard Deviation 45.7 fL (36.4-46.3); Red Blood Count 4.16 M/uL (4.7-6.1); White Blood Count 17.08 K/uL (4.8-10.8)
[2018-10-16 06:10] LABS: INR 1.4 (0.9-1.1); Prothrombin Time 14.2 Seconds (9.0-12.0)
[2018-10-16 06:18] LABS: BUN Creatinine Ratio 30.9 (10-20); Creatinine Clr Calc Pharmacy 44.2 ml/min; Est GFR (African American) 46.6; Est GFR (Non-African American) 40.2; Potassium 4.1 mmol/L (3.5-5.1)
[2018-10-16] MEDS: HEPARIN SODIUM/DEXTROSE 25,000 UNITS/500 ML BAG IV SCH ×2 (08:55→19:40)
[2018-10-16] MEDS: CEFDINIR 300 MG CAP PO SCH ×2 (08:56→21:26)
[2018-10-16] MEDS: dilTIAZem HCL 180 MG CAPCR PO SCH (08:56)
[2018-10-16] MEDS: FENOFIBRATE NANOCRYSTALLIZED 48 MG TABLET PO SCH (08:57)
[2018-10-16] MEDS: ASPIRIN 81 MG ECTAB PO SCH (08:57)
[2018-10-16] MEDS: CYANOCOBALAMIN (VITAMIN B-12) 100 MCG TABLET PO SCH (08:57)
[2018-10-16] MEDS: ROSUVASTATIN CALCIUM 20 MG TAB PO SCH (08:57)
[2018-10-16] MEDS: CHOLECALCIFEROL 1,000 UNITS TAB PO SCH (08:57)
[2018-10-16] MEDS: FLUTICASONE HFA 220 MCG INHALER INH SCH ×2 (08:58→21:26)
[2018-10-16] MEDS: INSULIN ASPART 100 UNITS/ML 3 ML PEN SC SCH ×4 (08:58→21:37)
[2018-10-16] MEDS: PREGABALIN 75 MG CAP PO SCH ×2 (09:07→21:35)
--- NOTE | 2018-10-16 11:49 | CT Scan Report ---
ABDOMEN AND PELVIS CT WITHOUT CONTRAST CT DOSE: 1190.51 mGy.cm HISTORY: Lower abdominal pain. recent Urosepsis; persistent WBC elevation TECHNIQUE: Multiaxial CT images of the abdomen and pelvis were performed without contrast. A dose lo wering technique was utilized adhering to the principles of ALARA. COMPARISON STUDY: Abdomen and pelvis CT 02/25/2017. FINDINGS: Mild fibrotic changes at the lung bases. Mitral valve prosthesis is noted. The heart remain s enlarged. No pneumoperitoneum. No pneumatosis. No fractures within the visualized osseous structure s. Decrease in size in the exophytic hypodense lesion within the spleen. This now measures 1.7 cm. Th is favors a cyst. The unenhanced liver, gallbladder, and adrenal glands are unremarkable. There is a large stone within the upper pole the left kidney demonstrating a staghorn appearance. This measures 1.8 cm remains unchanged. No right renal calculi. No ureteral stones. No hydronephrosis. No bladder w all thickening. Small amount of gas within the lateral lumen. Bilateral renal hypodense lesions are n ot significantly changed. These are incompletely characterized on this noncontrast study but may repr esent cysts. Mild inflammatory change surrounding the pancreatic tail. 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 Small fat-containing le ft inguinal hernia. Suboptimal evaluation for bowel pathology due to the lack of intravenous and oral contrast. However, there is no definite bowel wall thickening or obstruction. Colonic diverticulosis . No evidence for diverticulitis. Normal appendix. No retroperitoneal lymphadenopathy. IMPRESSION: 1. Mild inflammatory change surrounding the pancreatic tail consistent with acute pancreatitis. 2. Left-sided nephrolithiasis. No ureteral stones. No hydronephrosis. 3. Small amount of gas within the bladder lumen. This could be due to recent catheterization. 4. No bowel wall thickening or obstruction. 5. Colonic diverticulosis. 6. Additional findings as described above. Electronically signed by: Tuan Knox M.D. 10/16/2018 11:48 AM
[2018-10-16] MEDS ORDERED: WARFARIN SOD 3 MG TAB PO ONE (17:00)
--- NOTE | 2018-10-16 20:54 | Ultrasound Report ---
ABDOMINAL ULTRASOUND, RIGHT UPPER QUADRANT HISTORY: acute pancreatitis; eval for gallstones. COMPARISON: Abdomen and pelvis CT 10/16/2018. FINDINGS: Pancreas: Obscured by overlying bowel gas. Liver: Unremarkable. Gallbladder: No gallbladder wall thickening. No gallstones. CBD: 4 mm. Right kidney: No hydronephrosis. A 5.1 cm cyst. IMPRESSION: 1. Normal gallbladder. No gallstones. 2. Normal caliber common bile duct. 3. The pancreas was obscured by overlying bowel gas. Electronically signed by: Tuan Knox M.D. 10/16/2018 8:53 PM
--- NOTE | 2018-10-16 21:01 | Hospitalist Progress Note ---
Date of Service October 16, 2018 Assessment & Plan (1) Acute pancreatitis: CT abd/pelvis was obtained today due to persistently elevated WBC count despite 10+ days of IV/PO antibiotics for UTI. Surprisingly the CT showed mild pancreatitis. The patient did have abd discomfort several days ago, and a lipase checked today is elevated. Thus, he may have had acute pancreatitis earlier this stay and it is now in the resolution phase as he has a normal abdominal exam and reports no GI symptoms today. Etiology of this is uncertain. Clearly he did not have pancreatitis at time of admission. Recent triglycerides were normal. RUQ u/s obtained today shows a normal gall bladder w/o stones. Calcium level is normal. Etiology? When the patient had mild hypotension earlier this stay could he have developed pancreatitis from such? Recheck lipase in am -- suspect it will be lower. Will leave diet as is since he is tolerating it without GI symptoms. (2) Acute renal failure due to tubular necrosis: Renal u/s without obstruction or hydronephrosis, etc. CT today with large left-sided stone but it is in the renal pelvis and not causing any obstruction. Creatinine today is back to baseline (1.6/1.7). Resume lasix. (3) Gross hematuria: resolved. suspected to be multifactorial - UTI, anticoagulation, alicea trauma in setting of BPH, etc. alicea d/c yesterday and voiding w/o difficulty. (4) Acute embolic stroke: left frontal lobe CVA and punctate right cerebellar CVA on MRI brain. dual circulation strokes c/w embolic etiology - possibly from a.fib as his INR was <2 for multiple days prior to the event OR this was due to his heart catheterization. remains on heparin infusion w/ coumadin. will d/c heparin drip and transition to lovenox bridge while awaiting coumadin to be therapeutic. appreciate neuro, PT, OT, and speech evals. cont supportive care. had made nice progress with aphasia this week. (5) Atrial fibrillation, rapid: cont diltiazem cd 180mg in am and 120mg HS. rates acceptable. INR has been 1.3 to 1.4 for several days -- I have given 6 mg several days in a row without any increase. It is possible that the omnicef is antagonizing the coumadin. will give 6mg today again; INR am. d/c heparin drip in preparation for discharge. transition to lovenox bridge 100mg BID. stop lovenox once INR >2. (6) UTI (urinary tract infection): 2nd to e.coli. remains on cefdinir -- day #12 of abx. appreciate ID consult. consider JN to r/o prostatitis. 14-day course ?? (7) BPH (benign prostatic hyperplasia): continue flomax. appreciate urology consult. alicea d/c and voiding fine. (8) Coronary atherosclerosis of [place] coronary vessel: s/p heart cath this admission with significant CAD. decision made to medically manage the CAD rather than place stent. cont asa, statin (crestor 20mg daily). uncertain why he is not on beta gilberto -- strongly consider such. (9) Diabetic peripheral neuropathy associated with type 2 diabetes mellitus: can resume normal lyrica dosing since Cr has normalized to his baseline. pharmacy managing his glycemic control. control satisfactory. appreciate their assistance. (10) Stage III chronic kidney disease: baseline Cr about 1.6. GRACIE resolved. (11) H/O aortic valve replacement: noted bioprosthetic recent echo with preserved valve function (12) Acute on chronic diastolic (congestive) heart failure: acute component resolved. since ATN/GRACIE is resolved will resume his lasix 40mg daily. (13) Hyponatremia: likely 2nd to acute renal failure. resolved. (14) Hypertension: controlled. (15) Mixed hyperlipidemia: statin - crestor 20mg daily (16) DVT prophylaxis: changing heparin drip to lovenox SC 1mg/kg BID has had no bleeding issues last 2-3 days cont coumadin - see above left message for 10/14 and 10/16 d/c tomorrow to [facility] if lipase is stable, patient feeling well, tolerating lovenox, etc Subjective patient overall feeling well today. eating 100% of meals and really not having any GI upset/pain/nausea. pain he had had a few days ago is largely gone. denies dyspnea. denies cp. tele overnight with good rate control of a.fib. no new complaints. Review of Systems Constitutional: no fever, no chills and no anorexia Respiratory: no cough and no dyspnea Cardiovascular: no chest pain Gastrointestinal: no abdominal pain, no heartburn, no nausea, no vomiting and no dysphagia Genitourinary: no difficulty urinating Physical Exam Constitutional: + obese; no acute distress ENMT: external ear and nose normal, oropharynx normal Respiratory: normal respiratory effort Auscultation: + rales (fine, minimal - bases); no wheezes Cardiovascular: Rate/Rhythm: regular rate and + irregularly irregular Heart Sounds: normal S1 and normal S2; no murmur Vessels: posterior tibial pulses present and dorsalis pedis pulses present; no JVD Extremities: no edema Gastrointestinal (Abdomen): Inspection/Auscultation: normal bowel sounds; abdomen not distended Percussion/Palpation: abdomen soft; abdomen nontender and no hepatosplenomegaly Neurologic: no focal motor deficits Speech / Cognition: no expressive aphasia and no receptive aphasia Motor/Sensory: no tremor and no asterixis speech significantly improved from prior exams; fluent Psychiatric: Orientation: alert and oriented x 3 Results & Data Vital Signs (Past 12 Hours) Vital Signs Temp Pulse Resp BP Pulse Ox 10/16/18 19:20 37.0 C 80 20 124/70 94 10/16/18 15:30 36.9 C 76 20 122/76 96 10/16/18 11:30 91 10/16/18 11:10 36.6 C 88 16 127/59 L 91 Laboratory Results Laboratory Results - last 24 hr 10/16/18 10/16/18 10/16/18 04:35 04:35 05:20 WBC 17.08 H RBC 4.16 L Hgb 12.4 L Hct 35.4 L MCV 85.1 MCH 29.8 MCHC 35.0 RDW Std Deviation 45.7 RDW Coeff of Romulo 14.6 H Plt Count 220 MPV 10.5 H PT INR APTT 55.1 H* PTT Ratio 2.0 Sodium Potassium Chloride Carbon Dioxide Anion Gap BUN Creatinine 1.74 H Est Cr Clr Drug Dosing 43.5 Est GFR ( Amer) 45.7 Est GFR (Non-Af Amer) 39.4 BUN/Creatinine Ratio Glucose POC Glucose Calcium Lipase 10/16/18 10/16/18 10/16/18 05:20 05:20 05:20 WBC RBC Hgb Hct MCV MCH MCHC RDW Std Deviation RDW Coeff of Romulo Plt Count MPV PT 14.2 H INR 1.4 H APTT PTT Ratio Sodium 136 Potassium 4.1 Chloride 102 Carbon Dioxide 25 Anion Gap 9.0 BUN 53 H Creatinine 1.71 H Est Cr Clr Drug Dosing 44.2 Est GFR ( Amer) 46.6 Est GFR (Non-Af Amer) 40.2 BUN/Creatinine Ratio 30.9 H Glucose 82 POC Glucose Calcium 9.0 Lipase 1759 H 10/16/18 10/16/18 10/16/18 07:10 11:22 16:21 WBC RBC Hgb Hct MCV MCH MCHC RDW Std Deviation RDW Coeff of Romulo Plt Count MPV PT INR APTT PTT Ratio Sodium Potassium Chloride Carbon Dioxide Anion Gap BUN Creatinine Est Cr Clr Drug Dosing Est GFR ( Amer) Est GFR (Non-Af Amer) BUN/Creatinine Ratio Glucose POC Glucose 84 184 H 95 Calcium Lipase 10/16/18 20:35 WBC RBC Hgb Hct MCV MCH MCHC RDW Std Deviation RDW Coeff of Romulo Plt Count MPV PT INR APTT PTT Ratio Sodium Potassium Chloride Carbon Dioxide Anion Gap BUN Creatinine Est Cr Clr Drug Dosing Est GFR ( Amer) Est GFR (Non-Af Amer) BUN/Creatinine Ratio Glucose POC Glucose 82 Calcium Lipase Diagnostic Findings CT abd/pelvis - IMPRESSION: 1. Mild inflammatory change surrounding the pancreatic tail consistent with acute pancreatitis. 2. Left-sided nephrolithiasis. No ureteral stones. No hydronephrosis. 3. Small amount of gas within the bladder lumen. This could be due to recent catheterization. 4. No bowel wall thickening or obstruction. 5. Colonic diverticulosis. PG Care Time/CCT Total # of Minutes Spent Total Time Spent with Patient: Total time spent is greater than 50% in coordination of care (as documented) at patient's floor/unit and/or counseling patient: (1) UTI (urinary tract infection) Hematuria presence: without hematuria Urinary tract infection type: site unspecified Qualified Code(s): N39.0 - Urinary tract infection, site not specified (2) BPH (benign prostatic hyperplasia) Lower urinary tract symptom detail: unspecified Lower urinary tract symptom presence: symptoms present Qualified Code(s): N40.1 - Benign prostatic hyperplasia with lower urinary tract symptoms (3) Coronary atherosclerosis of [place] coronary vessel Associated angina: without angina [place] vs. transplanted heart: [place] heart Qualified Code(s): I25.10 - Atherosclerotic heart disease of [place] coronary artery without angina pectoris (4) Hypertension Hypertension type: essential hypertension Qualified Code(s): I10 - Essential (primary) hypertension (5) Acute pancreatitis Pancreatitis type: unspecified pancreatitis type Acute pancreatitis complication: no infection or necrosis Qualified Code(s): K85.90 - Acute pancreatitis without necrosis or infection, unspecified
[2018-10-16] MEDS: WARFARIN SOD 3 MG TAB PO SCH (21:23)
[2018-10-16] MEDS: ENOXAPARIN 100 MG/1ML SYR SQ SCH (21:23)
[2018-10-16] MEDS: TAMSULOSIN HCL 0.4 MG CAP PO SCH (21:24)
[2018-10-16] MEDS: dilTIAZem HCL 120 MG CAPCR PO SCH (21:25)
[2018-10-16] MEDS: INSULIN GLARGINE SOLOSTAR 100 UNITS/ML 3 ML PEN SC SCH (21:36)
[2018-10-17 07:27] LABS: Hematocrit (blood only) 36.7 % (42-52); Hemoglobin 12.6 g/dL (14.0-18.0); Mean Corpuscular Hemoglobin 29.4 pg (25-34); Mean Corpuscular Hgb Conc 34.3 g/dL (32-36); Mean Corpuscular Volume 85.7 fL (80-100); Mean Platelet Volume 10.1 fL (7.4-10.4); Platelet Count 208 K/uL (130-400); RDW Coefficient of Variation 14.8 % (11.5-14.5); RDW Standard Deviation 46.3 fL (36.4-46.3); Red Blood Count 4.28 M/uL (4.7-6.1); White Blood Count 18.19 K/uL (4.8-10.8)
[2018-10-17 07:50] LABS: INR 1.6 (0.9-1.1); Prothrombin Time 15.6 Seconds (9.0-12.0)
[2018-10-17 08:05] LABS: BUN Creatinine Ratio 26.7 (10-20); Calcium 9.4 mg/dl (8.5-10.1); Creatinine Clr Calc Pharmacy 46.8 ml/min; Est GFR (African American) 50.2; Est GFR (Non-African American) 43.3; Potassium 3.9 mmol/L (3.5-5.1)
[2018-10-17] MEDS: ASPIRIN 81 MG ECTAB PO SCH (08:57)
[2018-10-17] MEDS: CYANOCOBALAMIN (VITAMIN B-12) 100 MCG TABLET PO SCH (08:57)
[2018-10-17] MEDS: CHOLECALCIFEROL 1,000 UNITS TAB PO SCH (08:57)
[2018-10-17] MEDS: FLUTICASONE HFA 220 MCG INHALER INH SCH (08:57)
[2018-10-17] MEDS: FENOFIBRATE NANOCRYSTALLIZED 48 MG TABLET PO SCH (08:57)
[2018-10-17] MEDS: FUROSEMIDE 40 MG TAB PO SCH (08:57)
[2018-10-17] MEDS: ROSUVASTATIN CALCIUM 20 MG TAB PO SCH (08:57)
[2018-10-17] MEDS: INSULIN ASPART 100 UNITS/ML 3 ML PEN SC SCH ×2 (08:58→12:53)
[2018-10-17] MEDS: CEFDINIR 300 MG CAP PO SCH (08:58)
[2018-10-17] MEDS: ENOXAPARIN 100 MG/1ML SYR SQ SCH (08:58)
[2018-10-17] MEDS: dilTIAZem HCL 180 MG CAPCR PO SCH (08:58)
[2018-10-17] MEDS: PREGABALIN 100 MG CAP PO SCH ×2 (09:12→15:26)
[2018-10-17] MEDS ORDERED: STROKE PATIENT DISCHARGE STA (13:09)
--- NOTE | 2018-10-23 23:48 | Discharge Summary ---
Date of Service October 17, 2018 Admission HPI Per Admitting Provider Patient is a 68 year old male with a history of atrial fibrillation, congestive heart failure, diabetes mellitus types II, hypertension, and hyperlipidemia who presented to the Emergency Department 7 days ago with concerns of urinary frequency and incontinence, fevers and chills, shortness of breath, and memory dysfunction. Since that time, he was determined to have a UTI which was treated with IV ceftriaxone followed by PO cefdinir. Atrial fibrillation with RVR is being managed with diltiazem. Cardiac catheterization revealed severe apical LAD disease. Anticoagulation was stopped prior to this procedure and the patient developed acute stroke-like symptoms including dysarthria and expressive aphasia as well as right-sided weakness. This was determined to be due to a left posterior frontal acute CVA and a punctate acute right cerebellar hemispheric CVA. Patient was seen by neurology and urology this morning. Patient feels that his speech and muscle weakness are mildly improved as compared to yesterday. He does not report headache or any pain. He states that he has been able to move his bowels with his last bowel movement being a formed stool last night. He has been urinating without frequency, urgency, or pain but reports that his urine continues to be bloody. He does not endorse fever, chills, or sweats. Principal Diagnosis Acute embolic stroke Discharge Exam Constitutional WD/WN, vitals as above Eyes PERRL, conjunctivae normal, anicteric sclerae ENMT external ear and nose normal, oropharynx normal Neck trachea midline, no thyromegaly Respiratory normal respiratory effort, lungs clear to auscultation Cardiovascular RRR, no murmur, no edema Gastrointestinal (Abdomen) normal bowel sounds, soft, nontender, no hepatosplenomegaly Musculoskeletal no cyanosis or clubbing, extremities motor strength 5/5 Skin no rashes, warm and dry Neurologic normal touch/pain/proprioception, CN's II-XI intact bilaterally, deep tendon reflexes 2+ bilaterally, moves all extremities and awake; no focal motor deficits and not confused Speech / Cognition: + abnormal speech (slight dysarthria, word searching) Motor/Sensory: no tremor and normal movement Psychiatric A+Ox3, euthymic affect Lymphatic no cervical or axillary lymphadenopathy Discharge Data Allergies Allergy/AdvReac Type Severity Reaction Status Date / Time No Known Allergies Allergy Unverified 10/04/18 23:33 Consultations 10/04/18 23:06 ED Decision to Admit Stat 10/05/18 16:43 Consult Infectious Diseases Routine 10/07/18 15:07 Consult Cardiology Routine 10/10/18 20:56 Consult Case Management - Discharge Planning Routine Consult Neurology Routine 10/11/18 15:30 Consult Urology Routine Procedures Performed Operation Date: 10/10/18 09:30 Actual Procedures p Cineradiography w/Routine Exam - Dg Naranjo MD p Cath, Right Heart with Cors - Dg Naranjo MD s Fraction Flow Jackson SGL Ves - Dg Naranjo MD Ordered Studies 10/10/18 20:03 CT head/brain wo con Stat 10/10/18 20:54 CT angio head w con Stat CT angio neck with con Stat 10/11/18 00:12 MR brain wo con Urgent 10/13/18 12:17 US renal/blad retro comp Routine 10/16/18 10:19 CT abd pelvis wo con Routine 10/16/18 13:02 US gallbladder Routine Hospital Course (1) Acute embolic stroke: left frontal lobe CVA and punctate right cerebellar CVA on MRI brain. dual circulation strokes c/w embolic etiology - possibly from a.fib as his INR was <2 for multiple days prior to the event OR this was due to his heart catheterization. treated initially with heparin drip and Coumadind d/c on Lovenox q12 and Coumadin until INR therapeutic this can be done at rehab appreciate neuro, PT, OT, and speech evals. cont supportive care. had made nice progress with aphasia this week but still not at baseline (2) Acute pancreatitis: CT abd/pelvis was obtained today due to persistently elevated WBC count despite 10+ days of IV/PO antibiotics for UTI. Surprisingly the CT showed mild pancreatitis. The patient did have abd discomfort several days prior, and a lipase checked 10/16 is elevated. Thus, he may have had acute pancreatitis earlier this stay and it is now in the resolution phase as he has a normal abdominal exam and reports no GI symptoms today. Etiology of this is uncertain. Clearly he did not have pancreatitis at time of admission. Recent triglycerides were normal. RUQ u/s obtained shows a normal gall bladder w/o stones. Calcium level is normal. Etiology? When the patient had mild hypotension earlier this stay could he have developed pancreatitis from such? lipase trended down quickly, tolerating diet, no abdominal pain, no nausea, safe for discharge (3) Acute renal failure due to tubular necrosis: Renal u/s without obstruction or hydronephrosis, etc. CT with large left-sided stone but it is in the renal pelvis and not causing any obstruction. Creatinine back to baseline (1.6/1.7). Resume lasix. (4) Gross hematuria: resolved. suspected to be multifactorial - UTI, anticoagulation, alicea trauma in setting of BPH, etc. alicea d/c and voiding w/o difficulty. (5) Atrial fibrillation, rapid: cont diltiazem cd 180mg in am and 120mg HS. rates acceptable. INR 1.4 continue Lovenox on discharge and Coumadin 3mg daily may need more Coumadin (6) UTI (urinary tract infection): 2nd to e.coli. remains on cefdinir -- day #13 of abx. appreciate ID consult. would only need one more day for a full 14 day course (7) BPH (benign prostatic hyperplasia): continue flomax. appreciate urology consult. alicea d/c and voiding fine. (8) Coronary atherosclerosis of [place] coronary vessel: s/p heart cath this admission with significant CAD. decision made to medically manage the CAD rather than place stent. cont asa, statin (crestor 20mg daily). (9) Diabetic peripheral neuropathy associated with type 2 diabetes mellitus: can resume normal lyrica dosing since Cr has normalized to his baseline. pharmacy managing his glycemic control. control satisfactory. appreciate their assistance. (10) Stage III chronic kidney disease: baseline Cr about 1.6. GRACIE resolved. (11) H/O aortic valve replacement: noted bioprosthetic recent echo with preserved valve function (12) Acute on chronic diastolic (congestive) heart failure: acute component resolved. since ATN/GRACIE is resolved will resume his lasix 40mg daily. (13) Hyponatremia: likely 2nd to acute renal failure. resolved. (14) Hypertension: controlled. (15) Mixed hyperlipidemia: statin - crestor 20mg daily (16) DVT prophylaxis: Lovenox Total Time Total Time Spent Total Time Spent (In Minutes): 40 minutes Total Time Includes: Examination of the Patient, Discharge Planning, Medication Reconciliation, Communication With Other Providers and Other (discussion with family) Discharge Plan Discharge Items Patient Disposition: Transfer Inpatient Rehab Fac Reason For Visit: ATRIAL FIB WITH RVR, UTI Discharge Diagnosis: Embolic stroke, acute Atrial fibrillation Coronary artery disease Pancreatitis Condition: Fair Discharge Goals: Improve disease control, Improve function and Increase independence Activity: Resume your previous activity Non-emergency contact: Primary Care Provider Call non-emergency contact if: you have any medication questions, your symptoms worsen, your pain is not controlled and you have a fever Follow-up/Referrals: ProMarco MD [Primary Care Provider] - Diet: Carb Consistent or DM2 and Heart Healthy Addtl Provider Instructions: Medications: - ASPIRIN: treatment for coronary artery disease, take 81mg daily - CEFDINIR: treatment for UTI, need 4 more doses, responding well to treatment - DILTIAZEM: dose changed to 180mg in the morning and 120mg in the evening - LOVENOX: 100mg every 12 hours for the next 5 days, may require longer if INR is still subtherapeutic - COUMADIN: continue on 3mg daily until INR is therapeutic, INR is 1.6 on discharge - CRESTOR: dose increased from 5mg to 20mg daily - ULTRAM: continue to use as needed for pain Embolic stroke due to atrial fibrillation resulting in aphasia and decreased mobility, improving with therapy recommend discharge to [facility] to continue intense rehab with PT/OT and speech services continue on Lovenox until INR is therapeutic INR is 1.6, Coumadin 3mg daily, may need to increase dose if INR not therapeutic in two days check INR daily at rehab neurology evaluated patient, recommend increasing Crestor CAD: cardiac cath performed as inpatient because he had been scheduled to have one done as outpatient for exertional dyspnea and echo changes cath showed moderate to severe disease, no role for cardiac stents cardiology recommends aspirin, Crestor for management Pancreatitis: persistent leukocytosis despite days of appropriate antibiotics lipase checked on 10/16, was 1700 CT showed minimal pancreatitis changes, he has no pain, eating well lipase down to 1100 today, continues to have no GI symptoms no clear etiology, can discharge UTI, E coli: on day 12 of abx, complete two more days of Cefdinir at rehab FOLLOW UP physician at [facility] - neurology in one month - PCP one week after discharge from [facility] Prescriptions: New diltiazem HCl 180 mg Capsule,Extended Release 24hr 180 mg PO QAM 30 Days Qty: 30 RF: 1 aspirin [Ecotrin Low Strength] 81 mg Tablet,Delayed Release (Dr/Ec) 81 mg PO QAM 30 Days Qty: 30 RF: 4 tramadol 50 mg Tablet 50 mg PO Q8H PRN (Reason: pain) 30 Days Qty: 60 RF: 0 diltiazem HCl 120 mg Capsule,Extended Release 24hr 120 mg PO HS 30 Days Qty: 30 RF: 1 enoxaparin 100 mg/mL Syringe 100 mg subcut Q12H 10 Days Qty: 20 RF: 0 rosuvastatin [Crestor] 20 mg Tablet 20 mg PO DAILY 30 Days Qty: 30 RF: 3 pregabalin [Lyrica] 100 mg Capsule 100 mg PO TID 30 Days Qty: 90 RF: 1 Continued fenofibrate nanocrystallized 48 mg tablet 48 mg PO DAILY Qty: 90 RF: 0 warfarin 3 mg tablet 3 mg PO DAILY Qty: 90 RF: 0 tamsulosin 0.4 mg capsule 0.8 mg PO HS RF: 0 furosemide 20 mg tablet 40 mg PO DAILY RF: 0 albuterol sulfate 90 mcg/actuation HFA aerosol inhaler 1 - 2 puffs inhalation Q4H PRN (Reason: shortness of breath) RF: 0 omega-3 fatty acids 1,250 mg capsule 1,250 mg PO DAILY RF: 0 insulin aspart U-100 100 unit/mL (3 mL) insulin pen 30 units subcut TIDM Qty: 3 RF: 0 cholecalciferol (vitamin D3) 1,000 unit (25 mcg) tablet 1,000 units PO DAILY RF: 0 cyanocobalamin (vitamin B-12) 100 mcg tablet 100 mcg PO DAILY RF: 0 Arnuity Ellipta 100 mcg/actuation blister with device 1 puffs INH DAILY Qty: 30 RF: 11 Tresiba FlexTouch U-200 200 unit/mL (3 mL) insulin pen 60 unit subcut HS RF: 0 Discontinued rosuvastatin 5 mg tablet 5 mg PO DAILY Qty: 30 RF: 0 pregabalin 150 mg capsule 150 mg PO TID Qty: 270 RF: 1 diltiazem HCl [Cartia XT] 180 mg capsule,extended release 24hr 180 mg PO BID RF: 0 Stand-Alone Forms: [facility] Discharge Orders: Discharge Order (Routine); Ordered 10/17/18 Ordered By: Kiet Tamayo Skilled Items Patient informed of condition?: Yes DNR: No Discharge Level of Care: Acute rehab Communicable Disease: No Admission Data Admit Date/Time: 10/05/18 00:33 Attending Provider: Kiet Tamayo Admit Provider: Kamran Mayorga Primary Care Provider: Marco Velasco Other Providers: Edson Fonseca ; Stephon Braga ; Dg Naranjo ; Miquel Irby ; Lior Urrutia III ; Cassie ePng ; Alexei Muniz Christophe T. Service: Telemetry Other Interventions: Discharge Summary Assessment (RN) Last Done: 10/17/18 15:07 DC Date/Time DO NOT enter until pt leaves facility: 10/17/18 15:38
== END 2018-10-17 15:38 | DRG 286 ==
LOC: ED 20:29 → 2E 10-05 00:33 → SUATTDRO 10-05 00:33 → 2E 10-05 00:54

== ENCOUNTER 2019-01-01 18:56 | Inpatient (IN) ==
--- NOTE | 2019-01-01 19:18 | Emergency Department Note ---
Entered by Elena Jiménez acting as a scribe for History of Present Illness General Chief complaint: Urinary Symptoms Stated complaint: FEVER, SOB, URINE ODOR Time Seen by Provider: 01/01/19 19:02 Source: patient History of Present Illness Onset (ago): day(s) 1 Location: abdomen (urinary symptoms) Pain Consistency: + constant Associated symptoms: + denies other symptoms (leg swelling, rhinorrhea, back pain), + fever/chills, + shortness of breath and + other (urinary frequency); no cough and no rash The patient is a 68 year old male who presents to the Emergency Room with multiple complaints. The patient's family states that last night he began to experience chills and fever. He tried taking his temperature multiple times but got several different readings (105, 103, etc). Additionally he is experiencing shortness of breath that began this morning. He used his inhaler with minor relief. The patient admits to taking Tylenol this morning for his fever but states that he did not take his Afib meds yet today but he has been taking them daily. He also complains of frequent urination. He states that his current symptoms are similar to those he experienced 1 month ago when he was admitted to the hospital for a UTI. He denies leg swelling, rash, cough, rhinorrhea, back pain, and tobacco/alcohol use. The patient offers no additional complaints at this time. Home Medications Home Medications Medication Instructions Recorded Confirmed Type insulin aspart U-100 100 unit/mL 30 units SUBCUT TIDM #3 ml 08/12/18 01/01/19 History (3 mL) subcutaneous pen omega-3 fatty acids 1,250 mg 1,250 mg PO DAILY 08/12/18 01/01/19 History capsule warfarin 3 mg tablet 3 mg PO DAILY #90 tab 08/29/18 01/01/19 History albuterol sulfate 90 mcg/actuation 1 - 2 puffs INHALATION Q4H PRN gm 09/14/18 01/01/19 History aerosol inhaler fluticasone furoate 100 1 puffs INH DAILY #30 ea 09/16/18 01/01/19 Rx mcg/actuation blister powder for inhalation cholecalciferol (vitamin D3) 25 1,000 units PO DAILY tab 10/04/18 01/01/19 History mcg (1,000 unit) tablet cyanocobalamin (vitamin B-12) 100 100 mcg PO DAILY tab 10/04/18 01/01/19 History mcg tablet tamsulosin 0.4 mg capsule 0.8 mg PO HS cap 10/04/18 01/01/19 History aspirin [Ecotrin Low Strength] 81 mg PO QAM 30 Days #30 tab 10/17/18 01/01/19 Rx rosuvastatin 20 mg tablet 20 mg PO DAILY 30 Days #30 tab 10/24/18 01/01/19 Rx diltiazem HCl 180 mg 180 mg PO BID 30 Days #60 cap 11/10/18 01/01/19 Rx capsule,extended release 24 hr insulin degludec 200 unit/mL (3 40 units SUBCUT BID ml 11/10/18 01/01/19 History mL) subcutaneous pen fenofibrate nanocrystallized 48 mg 48 mg PO DAILY #90 tab 11/22/18 01/01/19 Rx tablet metoprolol tartrate 25 mg tablet 25 mg PO BID #180 tab 11/22/18 01/01/19 Rx furosemide 40 mg tablet 40 mg PO DAILY #90 tab 11/24/18 01/01/19 Rx Allergies Allergy/AdvReac Type Severity Reaction Status Date / Time No Known Allergies Allergy Verified 01/01/19 19:45 Past Med/Surg History Medical History (Updated 01/01/19 @ 23:05 by Kamran Mayorga MD) Abdominal aortic aneurysm dissection (Acute) Abnormal diffusion capacity determined by pulmonary function test (Acute) Acute kidney injury superimposed on chronic kidney disease AF (atrial fibrillation) (Acute) Atrial flutter (Acute) Background diabetic retinopathy associated with type 2 diabetes mellitus (Acute) Bilateral renal cysts (Acute) BPH (benign prostatic hyperplasia) (Acute) Calculus of ureter (Acute 11/30/12) Chronic low back pain (Acute) Complex sleep apnea syndrome (Acute) Congestive heart failure (Acute) Coronary atherosclerosis of [place] coronary vessel (Acute 11/30/12) Diabetes mellitus type 2, controlled (Acute) Diabetic peripheral neuropathy associated with type 2 diabetes mellitus (Acute) Diverticulosis (Acute) Dysesthesia (Acute) Dyslipidemia (Acute) Enlarged prostate without lower urinary tract symptoms (luts) (Acute) Hypertension (Acute) Interstitial lung disease (Acute) Intervertebral disc disease (Acute) Joint pain, knee (Acute) Kidney stone on left side (Acute) Loss of protective sensation of skin of foot (Acute) Lumbar back pain (Acute) Neuropathy in diabetes (Acute 11/30/12) Obesity (Acute) Restrictive lung disease (Acute) Skin change (Acute) SOBOE (shortness of breath on exertion) (Acute) Stage III chronic kidney disease (Acute) 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 (Acute) Type 2 diabetes mellitus, with long-term current use of insulin (Acute) Vitamin B12 deficiency (Acute) Vitamin D deficiency (Acute) Surgical History History of mitral valve replacement History of shoulder surgery History of surgical removal of pilonidal cyst Status post mitral valve annuloplasty (Acute) Family History Mother Diabetes Colon cancer Grandmother Multiple sclerosis Father Coronary heart disease Diabetes Myocardial infarction Grandfather Stroke Sister Diabetes Hypertension Brother Hypertension Diabetes Son Depression Social History Preferred Language: Kazakh Communication Ability: Effective Visual Impairment: No Limitations Hearing Ability: Normal Audio Visual Collections Coordinator Required: No Beliefs That Will Affect Care: None marital status: Current Living Situation: Spouse current occupational status: retired current occupation: Former [employer] Feels Safe at Home: Yes Safety Concerns: Feels Safe At This Time Smoking Status: Never smoker Hx Alcohol Use: No Hx Substance Use: No Childhood Exposure to Second-Hand Smoke: No Dental Care, Regularly: No Physical Activity Frequency: Does not Exercise Seatbelt Use: always Sunscreen Use: No Review of Systems See HPI for pertinent positives & negatives. and A total of 10 systems reviewed and were otherwise negative Physical Exam Vital Signs Vital Signs - 24 hr 01/01/19 18:57 01/01/19 19:26 01/01/19 20:05 Temperature 37.1 C Temperature Source Oral Pulse Rate 101 H 127 H 135 H Pulse Rate from SpO2 Sensor 114 H Pulse Rhythm Irregular Respiratory Rate 16 16 19 Respiratory Effort / Characteristics Non-Labored Spontaneous Respiratory Depth Normal Blood Pressure 110/57 L 141/65 H Blood Pressure Mean 74 94 Blood Pressure Position Sitting Pulse Oximetry 94 94 91 Oxygen Delivery Method Room Air Room Air Room Air Sepsis Recent Fever Within 48 Hours Yes Sepsis New/Unexplained Change in Mental Status No Sepsis Action Taken by Nursing No Action Required 01/01/19 20:15 01/01/19 20:30 01/01/19 20:45 Temperature Temperature Source Pulse Rate 135 H 126 H 127 H Pulse Rate from SpO2 Sensor 118 H 113 H 107 H Pulse Rhythm Respiratory Rate 23 15 19 Respiratory Effort / Characteristics Respiratory Depth Blood Pressure 130/89 158/57 H 101/75 Blood Pressure Mean 95 130 93 Blood Pressure Position Pulse Oximetry 93 Oxygen Delivery Method Room Air Sepsis Recent Fever Within 48 Hours Sepsis New/Unexplained Change in Mental Status Sepsis Action Taken by Nursing 01/01/19 21:01 01/01/19 21:15 Temperature Temperature Source Pulse Rate 125 H 121 H Pulse Rate from SpO2 Sensor Pulse Rhythm Respiratory Rate 22 21 Respiratory Effort / Characteristics Respiratory Depth Blood Pressure 126/74 110/69 Blood Pressure Mean 80 94 Blood Pressure Position Pulse Oximetry Oxygen Delivery Method Sepsis Recent Fever Within 48 Hours Sepsis New/Unexplained Change in Mental Status Sepsis Action Taken by Nursing GENERAL: Patient is awake alert in no acute distress patient is resting comfortably and showing no signs of anxiety EYES: The conjunctivae are clear. The pupils are round and reactive. EARS, NOSE, MOUTH AND THROAT: The nose is without any evidence of any deformity. Mucous membranes are moist tongue is midline NECK: The neck is nontender and supple. RESPIRATORY: Normal respiratory effort is noted there is no evidence of wheezing rhonchi or rales CARDIOVASCULAR: Tachycardic rate with regular rhythm was noted. There is some ectopy noted to auscultation. GASTROINTESTINAL: The abdomen is mildly distended but soft. There is no specific guarding or rigidity noted. BACK: No midline tenderness or or step-off noted range of motion in flexion extension as well as rotation no signs of muscle spasm noted MUSCULOSKELETAL/EXTREMITIES: There is no evidence of gross deformity full range of motion is noted in the hips and shoulders SKIN: There is no obvious evidence of any rash. Pedal edema was noted bilateral ly. NEUROLOGIC: Patient is awake alert and oriented x3. Course Course 1906: Past medical records reviewed. The patient was evaluated in room B11B. A complete history and physical exam was performed. 2148: I spoke to Dr. Mayorga, [place] [facility] who accepts the patient for admission. The patient verbally expressed understanding and agreement of the treatment plan. The patient will be evaluated for further treatment. Administered Medications Diltiazem HCl (Cardizem Cd) 180 mg PO BID FRANKIE Stop: 01/31/19 22:30 Last Admin: 01/01/19 23:07 Dose: 180 mg Documented by: [id number] Sodium Chloride (Nss 1000ml) 1,000 mls @ 80 mls/hr IV .[id number] FRANKIE Stop: 01/31/19 22:30 Last Admin: 01/01/19 23:07 Dose: 80 mls/hr Documented by: [id number] Insulin Glargine (Lantus Solostar Pen) 30 units SC BID FRANKIE Stop: 01/31/19 22:59 Last Admin: 01/01/19 23:08 Dose: 30 units Documented by: [id number] Cosigned by: [id number] Metoprolol Tartrate (Lopressor) 25 mg PO BID FRANKIE Stop: 01/31/19 22:30 Last Admin: 01/01/19 23:07 Dose: 25 mg Documented by: [id number] Miscellaneous (Order Awaiting Action) 1 ea N/A QS FRANKIE Stop: 02/01/19 00:00 Last Admin: 01/01/19 23:19 Dose: Not Given Documented by: [id number] Discontinued Medications Ceftriaxone Sodium (Rocephin) 1,000 mg in 50 mls @ 100 mls/hr IV NOW STA Stop: 01/01/19 20:44 Last Infusion: 01/01/19 21:15 Dose: 0 mls/hr Documented by: [id number] Admin: 01/01/19 20:44 Dose: 100 mls/hr Documented by: [id number] Sodium Chloride (Nss 1000ml) 500 mls @ 999 mls/hr IV .Q31M ONE Stop: 01/01/19 20:54 Last Infusion: 01/01/19 21:15 Dose: 0 mls/hr Documented by: [id number] Admin: 01/01/19 20:44 Dose: 999 mls/hr Documented by: [id number] Impression & Plan Pyelonephritis, Atrial fibrillation with RVR, Elevated WBC count, Acute kidney injury Critical Care Time Critical Care Time: Yes Total Critical Care Time: 45 I have personally spent greater than 45 minutes of critical care time in the direct management of this patient. This includes bedside care, interpretation of diagnostic studies, and testing, discussion with consultants, patient, and family members, and other required patient management activities. This 45 minutes is in excess of all separately billable procedures. Discharge Plan Visit Data *Final* Discharge Date/Time: 01/01/19 22:13 Chief Complaint: Urinary Symptoms Stated Complaint: FEVER, SOB, URINE ODOR ED Provider: Marco Rivera Discharge Problem: Pyelonephritis, Atrial fibrillation with RVR, Elevated WBC count, Acute kidney injury Patient Disposition: Admitted As Inpatient Discharge Instructions Interventions: ED Discharge Assessment Last Done: 01/01/19 22:13 Medical Decision Making Differential Diagnosis Differential diagnosis includes but is not limited to etiologies such as viral syndrome, otitis, pharyngitis, pneumonia, influenza, meningitis, urinary tract infection, sepsis, bacteremia, as well as others were entertained. Medical Records Attestation: I reviewed the patient's medical records. Home Medications Current Medication List: was personally reviewed by me Laboratory Data Attestation: I reviewed the patient's lab results. Result diagrams: 01/01/19 19:33 01/01/19 19:33 Lab Results 01/01/19 01/01/19 01/01/19 Range/Units 19:24 19:24 19:33 WBC 19.42 H (4.8-10.8) K/uL RBC 4.41 L (4.7-6.1) M/uL Hgb 13.2 L (14.0-18.0) g/dL Hct 39.2 L (42-52) % MCV 88.9 (80-100) fL MCH 29.9 (25-34) pg MCHC 33.7 (32-36) g/dL RDW Std Deviation 51.7 H (36.4-46.3) fL RDW Coeff of Romulo 15.6 H (11.5-14.5) % Plt Count 209 (130-400) K/uL MPV 10.1 (7.4-10.4) fL Immature Gran % (Auto) 0.4 % Neut % (Auto) 87.1 % Lymph % (Auto) 2.8 % Crook % (Auto) 9.5 % Eos % (Auto) 0.1 % Baso % (Auto) 0.1 % Immature Gran # (Auto) 0.08 H (0.00-0.02) K/uL Neut # (Auto) 16.93 H (1.4-6.5) K/uL Lymph # (Auto) 0.54 L (1.2-3.4) K/uL [place] # (Auto) 1.85 H (0.11-0.59) K/uL Eos # (Auto) 0.01 (0-0.5) K/uL Baso # (Auto) 0.01 (0-0.2) K/uL ESR (0-14) mm/hr PT (9.0-12.0) Seconds INR (0.9-1.1) APTT (21.0-31.0) Seconds PTT Ratio VBG pH 7.51 H (7.36-7.41) VBG pCO2 31 L (38-50) mmHg VBG pO2 74 mmHg VBG HCO3 24 mmol/L VBG O2 Saturation 87.8 % VBG Base Excess 1.7 mEq/L Barometric Pressure 733.3 mm/Hg Sodium (136-145) mmol/L Potassium (3.5-5.1) mmol/L Chloride (98-107) mmol/L Carbon Dioxide (21-32) mmol/L Anion Gap (3-11) BUN (7-18) mg/dl Creatinine (0.6-1.4) mg/dl Est Cr Clr Drug Dosing ml/min Est GFR ( Amer) Est GFR (Non-Af Amer) BUN/Creatinine Ratio (10-20) Glucose (70-99) mg/dl Lactate 2.3 H* (0.4-2.0) mmol/L Calcium (8.5-10.1) mg/dl Magnesium (1.8-2.4) mg/dl Total Bilirubin (0.2-1) mg/dl AST (15-37) U/L ALT (12-78) U/L Alkaline Phosphatase (45-117) U/L Troponin I (0-0.045) ng/ml C-Reactive Protein (0-0.29) mg/dl Total Protein (6.4-8.2) gm/dl Albumin (3.4-5.0) gm/dl Globulin (2.5-4.0) gm/dl Albumin/Globulin Ratio (0.9-2) Procalcitonin (0-0.5) ng/ml Urine Color Urine Appearance (Clear) Urine pH (4.5-7.5) Ur Specific [place] (1.000-1.030) Urine Protein (Negative) Urine Glucose (UA) (Negative) Urine Ketones (Negative) Urine Blood (Negative) Urine Nitrite (Negative) Urine Bilirubin (Negative) Urine Urobilinogen (Negative) Ur Leukocyte Esterase (Negative) Urine WBC (Auto) (0-5) /hpf Urine RBC (Auto) (0-4) /hpf U Hyaline Cast (Auto) (0-5) /lpf U Epithel Cells (Auto) (0-5) /lpf Urine Bacteria (Auto) (Negative) 01/01/19 01/01/19 01/01/19 Range/Units 19:33 19:33 19:33 WBC (4.8-10.8) K/uL RBC (4.7-6.1) M/uL Hgb (14.0-18.0) g/dL Hct (42-52) % MCV (80-100) fL MCH (25-34) pg MCHC (32-36) g/dL RDW Std Deviation (36.4-46.3) fL RDW Coeff of Romulo (11.5-14.5) % Plt Count (130-400) K/uL MPV (7.4-10.4) fL Immature Gran % (Auto) % Neut % (Auto) % Lymph % (Auto) % [place] % (Auto) % Eos % (Auto) % Baso % (Auto) % Immature Gran # (Auto) (0.00-0.02) K/uL Neut # (Auto) (1.4-6.5) K/uL Lymph # (Auto) (1.2-3.4) K/uL [place] # (Auto) (0.11-0.59) K/uL Eos # (Auto) (0-0.5) K/uL Baso # (Auto) (0-0.2) K/uL ESR 81 H (0-14) mm/hr PT 25.1 H (9.0-12.0) Seconds INR 2.6 H (0.9-1.1) APTT 33.7 H (21.0-31.0) Seconds PTT Ratio 1.2 VBG pH (7.36-7.41) VBG pCO2 (38-50) mmHg VBG pO2 mmHg VBG HCO3 mmol/L VBG O2 Saturation % VBG Base Excess mEq/L Barometric Pressure mm/Hg Sodium 136 (136-145) mmol/L Potassium 3.4 L (3.5-5.1) mmol/L Chloride 102 (98-107) mmol/L Carbon Dioxide 27 (21-32) mmol/L Anion Gap 8.0 (3-11) BUN 27 H (7-18) mg/dl Creatinine 2.10 H (0.6-1.4) mg/dl Est Cr Clr Drug Dosing 38.5 ml/min Est GFR ( Amer) 36.4 Est GFR (Non-Af Amer) 31.4 BUN/Creatinine Ratio 13.0 (10-20) Glucose 253 H (70-99) mg/dl Lactate (0.4-2.0) mmol/L Calcium 9.6 (8.5-10.1) mg/dl Magnesium 1.5 L (1.8-2.4) mg/dl Total Bilirubin 1.1 H (0.2-1) mg/dl AST 13 L (15-37) U/L ALT 14 (12-78) U/L Alkaline Phosphatase 70 (45-117) U/L Troponin I < 0.015 (0-0.045) ng/ml C-Reactive Protein 10.70 H (0-0.29) mg/dl Total Protein 8.0 (6.4-8.2) gm/dl Albumin 3.8 (3.4-5.0) gm/dl Globulin 4.2 H (2.5-4.0) gm/dl Albumin/Globulin Ratio 0.9 (0.9-2) Procalcitonin (0-0.5) ng/ml Urine Color Urine Appearance (Clear) Urine pH (4.5-7.5) Ur Specific [place] (1.000-1.030) Urine Protein (Negative) Urine Glucose (UA) (Negative) Urine Ketones (Negative) Urine Blood (Negative) Urine Nitrite (Negative) Urine Bilirubin (Negative) Urine Urobilinogen (Negative) Ur Leukocyte Esterase (Negative) Urine WBC (Auto) (0-5) /hpf Urine RBC (Auto) (0-4) /hpf U Hyaline Cast (Auto) (0-5) /lpf U Epithel Cells (Auto) (0-5) /lpf Urine Bacteria (Auto) (Negative) 01/01/19 01/01/19 Range/Units 19:33 20:18 WBC (4.8-10.8) K/uL RBC (4.7-6.1) M/uL Hgb (14.0-18.0) g/dL Hct (42-52) % MCV (80-100) fL MCH (25-34) pg MCHC (32-36) g/dL RDW Std Deviation (36.4-46.3) fL RDW Coeff of Romulo (11.5-14.5) % Plt Count (130-400) K/uL MPV (7.4-10.4) fL Immature Gran % (Auto) % Neut % (Auto) % Lymph % (Auto) % [place] % (Auto) % Eos % (Auto) % Baso % (Auto) % Immature Gran # (Auto) (0.00-0.02) K/uL Neut # (Auto) (1.4-6.5) K/uL Lymph # (Auto) (1.2-3.4) K/uL [place] # (Auto) (0.11-0.59) K/uL Eos # (Auto) (0-0.5) K/uL Baso # (Auto) (0-0.2) K/uL ESR (0-14) mm/hr PT (9.0-12.0) Seconds INR (0.9-1.1) APTT (21.0-31.0) Seconds PTT Ratio VBG pH (7.36-7.41) VBG pCO2 (38-50) mmHg VBG pO2 mmHg VBG HCO3 mmol/L VBG O2 Saturation % VBG Base Excess mEq/L Barometric Pressure mm/Hg Sodium (136-145) mmol/L Potassium (3.5-5.1) mmol/L Chloride (98-107) mmol/L Carbon Dioxide (21-32) mmol/L Anion Gap (3-11) BUN (7-18) mg/dl Creatinine (0.6-1.4) mg/dl Est Cr Clr Drug Dosing ml/min Est GFR ( Amer) Est GFR (Non-Af Amer) BUN/Creatinine Ratio (10-20) Glucose (70-99) mg/dl Lactate (0.4-2.0) mmol/L Calcium (8.5-10.1) mg/dl Magnesium (1.8-2.4) mg/dl Total Bilirubin (0.2-1) mg/dl AST (15-37) U/L ALT (12-78) U/L Alkaline Phosphatase (45-117) U/L Troponin I (0-0.045) ng/ml C-Reactive Protein (0-0.29) mg/dl Total Protein (6.4-8.2) gm/dl Albumin (3.4-5.0) gm/dl Globulin (2.5-4.0) gm/dl Albumin/Globulin Ratio (0.9-2) Procalcitonin 5.84 H (0-0.5) ng/ml Urine Color Dark Yellow Urine Appearance Turbid A (Clear) Urine pH 5.0 (4.5-7.5) Ur Specific [place] 1.020 (1.000-1.030) Urine Protein 3+ H (Negative) Urine Glucose (UA) Negative (Negative) Urine Ketones Trace H (Negative) Urine Blood 3+ H (Negative) Urine Nitrite Positive A (Negative) Urine Bilirubin Negative (Negative) Urine Urobilinogen Negative (Negative) Ur Leukocyte Esterase 3+ H (Negative) Urine WBC (Auto) >30 H (0-5) /hpf Urine RBC (Auto) >30 H (0-4) /hpf U Hyaline Cast (Auto) 0 (0-5) /lpf U Epithel Cells (Auto) >30 H (0-5) /lpf Urine Bacteria (Auto) 4+ H (Negative) Imaging Data Radiologist's Impression: Radiology results as stated below per my review and the radiologist's interpretation: ABDOMEN AND PELVIS CT WITHOUT CONTRAST CT DOSE: 1146.45 mGy.cm HISTORY: Right flank pain. TECHNIQUE: Multiaxial CT images of the abdomen and pelvis were performed without contrast. A dose lowering technique was utilized adhering to the principles of ALARA. COMPARISON STUDY: Abdomen and pelvis CT 10/16/2018. FINDINGS: Mild fibrotic changes again noted at the lung bases. No pne umoperitoneum. No pneumatosis. No suspicious lytic are blastic osseous lesions. The heart remains mildly enlarged. A mitral valve ring is again noted. The unenhanced liver, gallbladder, and pancreas are unremarkable. Small bilateral adrenal gland nodules remain stable. Bilateral perinephric edema/fat stranding has slightly progressed. This is most pronounced on the left.. Stable bilateral renal and splenic hypodense lesions. These are incompletely characterized on this noncontrast study but favor cysts. A few punctate stones within the right kidney. Stable left-sided nephrolithiasis. Dominant stone within the left kidney demonstrates a partial staghorn appearance and measures 1.6 cm. No ureteral stones. No hydronephrosis. Mild bladder wall thickening with adjacent fat stranding. No retroperitoneal lymphadenopathy. Bilobed appearance to the partially calcified distal abdominal aorta and right common iliac artery. This remains unchanged and raise the possibility of a chronic dissection. No aneurysm identified. Suboptimal evaluation for bowel pathology due to the lack of intravenous and oral contrast. However, there is no definite bowel wall thickening or obstruction. Colonic diverticulosis. No evidence for diverticulitis. Normal appendix. IMPRESSION: 1. Bilateral nephrolithiasis. No ureteral stones. No hydronephrosis. 2. Bladder wall thickening with adjacent fat stranding. This is new compared to the prior study. There is also progressive bilateral perinephric fat stranding/e giuliano. Findings likely represent a cystitis with possible bilateral pyelonephritis. Recommend correlation with urinalysis. 3. No bowel wall thickening or obstruction. 4. Normal appendix. 5. Additional stable findings as described above. Electronically signed by: Tuan Knox M.D. 01/01/2019 8:25 PM XR chest 1V portable HISTORY: Sepsis COMPARISON: Chest 10/04/2018. FINDINGS: No pneumothorax. No pleural effusions. The heart remains mildly enl arged. Mitral valve ring is again noted. There is mild central pulmonary vascular congestion without overt edema. No new focal lung consolidations to suggest pneumonia. IMPRESSION: Cardiomegaly with mild congestive change. This has improved in the interval. Electronically signed by: Tuan Knox M.D. 01/01/2019 7:51 PM ECG Data Attestation: I personally reviewed and interpreted this ECG as follows: Indication: + other (urinary symptoms ) Rate (beats per minute): 134 Rhythm: + atrial fibrillation ECG ST segments: + ST depression (diffuse) ECG Findings: + Other (inferior Q waves); no PVCs Comparison ECG Date: from (10/04/18) Change: no significant change Blood Pressure Blood Pressure Findings: Elevated blood pressure Blood Pressure Disposition: elevated BP felt to be situational MDM Narrative The patient is a 68-year-old male who presented to the emergency department for an evaluation of subjective fever. The patient has a history of urinary tract infection in the past. The patient was treated with IV fluids as well as IV antibiotics. He was found to have rapid atrial fibrillation in the emergency department. I discussed the patient's laboratory and radiographic studies with him. I reviewed the patient's previous urine culture did reveal a pansensitive E. coli. I do feel that the antibiotic chosen in the emergency department will be good coverage at this time. The patient was reevaluated multiple times. I discussed his case with the on-call [facility] hospitalist group. They have agreed to evaluate the patient in the emergency department for further management disposition. The patient was not given aggressive fluid rehydration given his cardiac history. I do feel that his rapid atrial fibrillation is a response to his current infection at this time. Discharge Problem: Elevated WBC count Qualifiers: Leukocytosis type: unspecified Qualified Code(s): D72.829 - Elevated white blood cell count, unspecified The scribe's documentation has been prepared under my direction and personally reviewed by me in its entirety. I confirm that the note above accurately reflects all work, treatment, procedures, and medical decision making performed by me.
[2019-01-01 19:48] LABS: Basophils # (auto) 0.01 K/uL (0-0.2); Basophils % (auto) 0.1 %; Eosinophils # (auto) 0.01 K/uL (0-0.5); Eosinophils % (auto) 0.1 %; Hematocrit (blood only) 39.2 % (42-52); Hemoglobin 13.2 g/dL (14.0-18.0); Immature Granulocytes # (auto) 0.08 K/uL (0.00-0.02); Immature Granulocytes % (auto) 0.4 %; Lymphocytes # (auto) 0.54 K/uL (1.2-3.4); Lymphocytes % (auto) 2.8 %; Mean Corpuscular Hemoglobin 29.9 pg (25-34); Mean Corpuscular Hgb Conc 33.7 g/dL (32-36); Mean Corpuscular Volume 88.9 fL (80-100); Mean Platelet Volume 10.1 fL (7.4-10.4); Monocytes # (auto) 1.85 K/uL (0.11-0.59); Monocytes % (auto) 9.5 %; Neutrophils # (auto) 16.93 K/uL (1.4-6.5); Neutrophils % (auto) 87.1 %; Platelet Count 209 K/uL (130-400); RDW Coefficient of Variation 15.6 % (11.5-14.5); RDW Standard Deviation 51.7 fL (36.4-46.3); Red Blood Count 4.41 M/uL (4.7-6.1); White Blood Count 19.42 K/uL (4.8-10.8)
--- NOTE | 2019-01-01 19:52 | XRay Report ---
XR chest 1V portable HISTORY: Sepsis COMPARISON: Chest 10/04/2018. FINDINGS: No pneumothorax. No pleural effusions. The heart remains mildly enlarged. Mitral valve ring is again noted. There is mild central pulmonary vascular congestion without overt edema. No new foca l lung consolidations to suggest pneumonia. IMPRESSION: Cardiomegaly with mild congestive change. This has improved in the interval. Electronically signed by: Tuan Knox M.D. 01/01/2019 7:51 PM
[2019-01-01 19:56] LABS: Base Excess VBG 1.7 mEq/L; Oxygen Saturation VBG 87.8 %; pH VBG 7.51 (7.36-7.41)
[2019-01-01 19:59] LABS: INR 2.6 (0.9-1.1); Partial Thromboplastin Ratio 1.2; Partial Thromboplastin Time 33.7 Seconds (21.0-31.0); Prothrombin Time 25.1 Seconds (9.0-12.0)
[2019-01-01 20:06] LABS: Alanine Aminotransferase 14 U/L (12-78); Albumin Level 3.8 gm/dl (3.4-5.0); Aspartate Aminotransferase 13 U/L (15-37); Blood Urea Nitrogen 27 mg/dl (7-18); Calcium 9.6 mg/dl (8.5-10.1); Carbon Dioxide 27 mmol/L (21-32); Chloride 102 mmol/L (98-107); Creatinine Clr Calc Pharmacy 38.5 ml/min; Est GFR (African American) 36.4; Est GFR (Non-African American) 31.4; Glucose 253 mg/dl (70-99); Magnesium 1.5 mg/dl (1.8-2.4); Potassium 3.4 mmol/L (3.5-5.1); Sodium 136 mmol/L (136-145)
[2019-01-01 20:10] LABS: Albumin Globulin Ratio 0.9 (0.9-2); Alkaline Phosphatase 70 U/L (45-117); Bilirubin,Total 1.1 mg/dl (0.2-1); Globulin 4.2 gm/dl (2.5-4.0); Troponin I < 0.015 ng/ml (0-0.045)
[2019-01-01] MEDS ORDERED: cefTRIAXone SODIUM 1,000 MG/50 ML BAG IV STA (20:15)
[2019-01-01] MEDS ORDERED: SODIUM CHLORIDE 0.9% 1000ML 500 ML IV ONE (20:24)
[2019-01-01 20:27] LABS: Appearance Urine Turbid (Clear); Bacteria Urine Automated 4+ (Negative); Bilirubin Urine Negative (Negative); Blood Urine 3+ (Negative); Color Urine Dark Yellow; Epithelial Cell Urine Auto >30 /lpf (0-5); Glucose Urine UA Negative (Negative); Ketones Urine Trace (Negative); Leukocyte Esterase Urine 3+ (Negative); Nitrite Urine Positive (Negative); Protein Urine 3+ (Negative); RBC Urine Automated >30 /hpf (0-4); Urobilinogen Urine Negative (Negative); WBC Urine Automated >30 /hpf (0-5)
--- NOTE | 2019-01-01 20:27 | CT Scan Report ---
ABDOMEN AND PELVIS CT WITHOUT CONTRAST CT DOSE: 1146.45 mGy.cm HISTORY: Right flank pain. TECHNIQUE: Multiaxial CT images of the abdomen and pelvis were performed without contrast. A dose lo wering technique was utilized adhering to the principles of ALARA. COMPARISON STUDY: Abdomen and pelvis CT 10/16/2018. FINDINGS: Mild fibrotic changes again noted at the lung bases. No pneumoperitoneum. No pneumatosis. N o suspicious lytic are blastic osseous lesions. The heart remains mildly enlarged. A mitral valve rin g is again noted. The unenhanced liver, gallbladder, and pancreas are unremarkable. Small bilateral a drenal gland nodules remain stable. Bilateral perinephric edema/fat stranding has slightly progressed . This is most pronounced on the left.. Stable bilateral renal and splenic hypodense lesions. These a re incompletely characterized on this noncontrast study but favor cysts. A few punctate stones within the right kidney. Stable left-sided nephrolithiasis. Dominant stone within the left kidney demonstra abisai a partial staghorn appearance and measures 1.6 cm. No ureteral stones. No hydronephrosis. Mild bl adder wall thickening with adjacent fat stranding. No retroperitoneal lymphadenopathy. Bilobed appear ance to the partially calcified distal abdominal aorta and right common iliac artery. This remains un changed and raise the possibility of a chronic dissection. No aneurysm identified. Suboptimal evaluat ion for bowel pathology due to the lack of intravenous and oral contrast. However, there is no defini te bowel wall thickening or obstruction. Colonic diverticulosis. No evidence for diverticulitis. Norm al appendix. IMPRESSION: 1. Bilateral nephrolithiasis. No ureteral stones. No hydronephrosis. 2. Bladder wall thickening with adjacent fat stranding. This is new compared to the prior study. Ther e is also progressive bilateral perinephric fat stranding/edema. Findings likely represent a cystitis with possible bilateral pyelonephritis. Recommend correlation with urinalysis. 3. No bowel wall thickening or obstruction. 4. Normal appendix. 5. Additional stable findings as described above. Electronically signed by: Tuan Knox M.D. 01/01/2019 8:25 PM
[2019-01-01 20:58] LABS: Cast Urine Automated 0 /lpf (0-5)
--- NOTE | 2019-01-01 21:29 | History & Physical Report ---
Date of Service January 01, 2019 Assessment & Plan (1) Pyelonephritis: Bilateral pyelonephritis/secondary to cystitis/secondary to BPH with LUTS- Follow urine culture and sensitivity. Placed on ceftriaxone 2 g IV daily. NSS at 80 mils per hour. Follow urine output. Continue tamsulosin 0.8 mg p.o. at bedtime. Present on Admission?: Yes (2) Atrial fibrillation with RVR: Continue metoprolol tartrate, warfarin and diltiazem CD. Follow laboratory serially. Present on Admission?: Yes (3) Acute kidney injury superimposed on chronic kidney disease: Creatinine 2.10, with range 1.54-3.5. Follow serial laboratories with hydration and antibiotics Present on Admission?: Yes (4) Acute on chronic diastolic (congestive) heart failure: Temporarily hold diuretics while gently rehydrating, follow clinical examination closely. Present on Admission?: Yes (5) Hypertension: As above. Present on Admission?: Yes (6) Dyslipidemia: Continue fenofibrate and rosuvastatin. Present on Admission?: Yes (7) BPH (benign prostatic hyperplasia): As above continue tamsulosin 0.8 mg p.o. at bedtime. Present on Admission?: Yes (8) Diabetes mellitus type 2, controlled: Adjust Tresiba to Lantus. Patient Accu-Cheks before meals and at bedtime with NovoLog coverage per scale. Present on Admission?: Yes History of Present Illness Chief Complaint: The patient presents to the emergency department with fevers, chills, sweats, shortness of breath and urinary frequency and nocturia. Primary Care Provider: Marco Velasco MD The patient is a 68-year-old male with past medical history including diabetes mellitus, pancreatitis, hyperlipidemia, hyponatremia, acute on chronic diastolic CHF, acute renal failure due to tubular necrosis, acute embolic stroke, atrial fibrillation, UTI, abdominal aortic aneurysm, atrial flutter, complex sleep apnea syndrome, diabetic peripheral neuropathy and dyslipidemia. He most recently is was admitted to [facility] from 10/12-10/17 for an acute embolic CVA that occurred while off of anticoagulation for a procedure. Today he reports to the emergency department with 24 hours of worsening symptoms as noted above. Allergies Allergy/AdvReac Type Severity Reaction Status Date / Time No Known Allergies Allergy Verified 01/01/19 19:45 Home Medications Home Medications Medication Instructions Recorded Confirmed Type insulin aspart U-100 100 unit/mL 30 units SUBCUT TIDM #3 ml 08/12/18 01/01/19 History (3 mL) subcutaneous pen omega-3 fatty acids 1,250 mg 1,250 mg PO DAILY 08/12/18 01/01/19 History capsule warfarin 3 mg tablet 3 mg PO DAILY #90 tab 08/29/18 01/01/19 History albuterol sulfate 90 mcg/actuation 1 - 2 puffs INHALATION Q4H PRN gm 09/14/18 01/01/19 History aerosol inhaler fluticasone furoate 100 1 puffs INH DAILY #30 ea 09/16/18 01/01/19 Rx mcg/actuation blister powder for inhalation cholecalciferol (vitamin D3) 25 1,000 units PO DAILY tab 10/04/18 01/01/19 History mcg (1,000 unit) tablet cyanocobalamin (vitamin B-12) 100 100 mcg PO DAILY tab 10/04/18 01/01/19 History mcg tablet tamsulosin 0.4 mg capsule 0.8 mg PO HS cap 10/04/18 01/01/19 History aspirin [Ecotrin Low Strength] 81 mg PO QAM 30 Days #30 tab 10/17/18 01/01/19 Rx rosuvastatin 20 mg tablet 20 mg PO DAILY 30 Days #30 tab 10/24/18 01/01/19 Rx diltiazem HCl 180 mg 180 mg PO BID 30 Days #60 cap 11/10/18 01/01/19 Rx capsule,extended release 24 hr insulin degludec 200 unit/mL (3 40 units SUBCUT BID ml 11/10/18 01/01/19 History mL) subcutaneous pen fenofibrate nanocrystallized 48 mg 48 mg PO DAILY #90 tab 11/22/18 01/01/19 Rx tablet metoprolol tartrate 25 mg tablet 25 mg PO BID #180 tab 11/22/18 01/01/19 Rx furosemide 40 mg tablet 40 mg PO DAILY #90 tab 11/24/18 01/01/19 Rx Past Med/Surg History Medical History Abdominal aortic aneurysm dissection (Acute) Abnormal diffusion capacity determined by pulmonary function test (Acute) AF (atrial fibrillation) (Acute) Atrial flutter (Acute) Background diabetic retinopathy associated with type 2 diabetes mellitus (Acute) Bilateral renal cysts (Acute) BPH (benign prostatic hyperplasia) (Acute) Calculus of ureter (Acute 11/30/12) Chronic low back pain (Acute) Complex sleep apnea syndrome (Acute) Congestive heart failure (Acute) Coronary atherosclerosis of [place] coronary vessel (Acute 11/30/12) Diabetes mellitus type 2, controlled (Acute) Diabetic peripheral neuropathy associated with type 2 diabetes mellitus (Acute) Diverticulosis (Acute) Dysesthesia (Acute) Dyslipidemia (Acute) Enlarged prostate without lower urinary tract symptoms (luts) (Acute) Hypertension (Acute) Interstitial lung disease (Acute) Intervertebral disc disease (Acute) Joint pain, knee (Acute) Kidney stone on left side (Acute) Loss of protective sensation of skin of foot (Acute) Lumbar back pain (Acute) Neuropathy in diabetes (Acute 11/30/12) Obesity (Acute) Restrictive lung disease (Acute) Skin change (Acute) SOBOE (shortness of breath on exertion) (Acute) Stage III chronic kidney disease (Acute) 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 (Acute) Type 2 diabetes mellitus, with long-term current use of insulin (Acute) Vitamin B12 deficiency (Acute) Vitamin D deficiency (Acute) Surgical History History of mitral valve replacement History of shoulder surgery History of surgical removal of pilonidal cyst Status post mitral valve annuloplasty (Acute) Family History Mother Diabetes Colon cancer Grandmother Multiple sclerosis Father Coronary heart disease Diabetes Myocardial infarction Grandfather Stroke Sister Diabetes Hypertension Brother Hypertension Diabetes Son Depression Social History Preferred Language: Nepali Communication Ability: Effective Visual Impairment: No Limitations Hearing Ability: Normal 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 Required: No Beliefs That Will Affect Care: None marital status: Current Living Situation: Spouse current occupational status: retired current occupation: Former [employer] Feels Safe at Home: Yes Safety Concerns: Feels Safe At This Time Smoking Status: Never smoker Hx Alcohol Use: No Hx Substance Use: No Childhood Exposure to Second-Hand Smoke: No Dental Care, Regularly: No Physical Activity Frequency: Does not Exercise Seatbelt Use: always Sunscreen Use: No Review of Systems Review of Systems: The patient denies chest pain, palpitations, cough, lower extremity swelling, sore throat, nausea, vomiting, diarrhea , constipation, abdominal pain, pelvic pain, blood in urine or stool, dysuria, lightheadedness, dizziness, headache, memory loss, loss of consciousness, rash, abnormal bruising or bleeding, imbalance, focal or generalized weakness, generalized arthralgias or myalgias, back or neck pain. The review of systems is otherwise negative other than for that already noted above, and at least 10 systems have been reviewed. Physical Exam Physical Exam: The patient is awake, alert and oriented 3, well developed and well nourished, normocephalic and atraumatic, lying in bed and in no acute distress. HEENT--PERRL, EOMI, mucous membranes and oropharynx normal. Neck--supple. No JVD. No bruits. Thyroid normal, trachea midline, no adenopathy . Heart--normal S1 and S2. No murmurs, rubs or gallops. Lungs--clear bilaterally, overall decreased breath sounds throughout. No respiratory distress, no accessory muscle use. Abdomen--normal bowel sounds and soft. Nontender. Nondistended, obese. Extremities--no cyanosis or clubbing. No edema. Dermatologic--normal skin turgor, normal color, no abnormal lymph nodes, no rash. Neurologic--cranial nerves II through XII grossly intact. Rheumatologic--normal range of motion. Psychiatric--normal affect. Results & Data Vital Signs (Past 12 Hours) Vital Signs Temp Pulse Resp BP Pulse Ox 01/01/19 21:15 121 H 21 110/69 01/01/19 21:01 125 H 22 126/74 01/01/19 20:45 127 H 19 101/75 01/01/19 20:30 126 H 15 158/57 H 01/01/19 20:15 135 H 23 130/89 93 01/01/19 20:05 135 H 19 141/65 H 91 01/01/19 19:26 127 H 16 94 01/01/19 18:57 98.8 F 101 H 16 110/57 L 94 Laboratory Results Laboratory Results WBC 19.42 K/uL (4.8-10.8) H 01/01/19 19:33 RBC 4.41 M/uL (4.7-6.1) L 01/01/19 19:33 Hgb 13.2 g/dL (14.0-18.0) L 01/01/19 19:33 Hct 39.2 % (42-52) L 01/01/19 19:33 MCV 88.9 fL (80-100) 01/01/19 19:33 MCH 29.9 pg (25-34) 01/01/19 19:33 MCHC 33.7 g/dL (32-36) 01/01/19 19:33 RDW Std Deviation 51.7 fL (36.4-46.3) H 01/01/19 19:33 RDW Coeff of Romulo 15.6 % (11.5-14.5) H 01/01/19 19:33 Plt Count 209 K/uL (130-400) 01/01/19 19:33 MPV 10.1 fL (7.4-10.4) 01/01/19 19:33 Immature Gran % (Auto) 0.4 % 01/01/19 19:33 Neut % (Auto) 87.1 % 01/01/19 19:33 Lymph % (Auto) 2.8 % 01/01/19 19:33 Mineral % (Auto) 9.5 % 01/01/19 19:33 Eos % (Auto) 0.1 % 01/01/19 19:33 Baso % (Auto) 0.1 % 01/01/19 19:33 Immature Gran # (Auto) 0.08 K/uL (0.00-0.02) H 01/01/19 19:33 Neut # (Auto) 16.93 K/uL (1.4-6.5) H 01/01/19 19:33 Lymph # (Auto) 0.54 K/uL (1.2-3.4) L 01/01/19 19:33 Mineral # (Auto) 1.85 K/uL (0.11-0.59) H 01/01/19 19:33 Eos # (Auto) 0.01 K/uL (0-0.5) 01/01/19 19:33 Baso # (Auto) 0.01 K/uL (0-0.2) 01/01/19 19:33 ESR 81 mm/hr (0-14) H 01/01/19 19:33 PT 25.1 Seconds (9.0-12.0) H 01/01/19 19:33 INR 2.6 (0.9-1.1) H 01/01/19 19:33 APTT 33.7 Seconds (21.0-31.0) H 01/01/19 19:33 PTT Ratio 1.2 01/01/19 19:33 VBG pH 7.51 (7.36-7.41) H 01/01/19 19:24 VBG pCO2 31 mmHg (38-50) L 01/01/19 19:24 VBG pO2 74 mmHg 01/01/19 19:24 VBG HCO3 24 mmol/L 01/01/19 19:24 VBG O2 Saturation 87.8 % 01/01/19 19:24 VBG Base Excess 1.7 mEq/L 01/01/19 19:24 Barometric Pressure 733.3 mm/Hg 01/01/19 19:24 Sodium 136 mmol/L (136-145) 01/01/19 19:33 Potassium 3.4 mmol/L (3.5-5.1) L 01/01/19 19:33 Chloride 102 mmol/L (98-107) 01/01/19 19:33 Carbon Dioxide 27 mmol/L (21-32) 01/01/19 19:33 Anion Gap 8.0 (3-11) 01/01/19 19:33 BUN 27 mg/dl (7-18) H 01/01/19 19:33 Creatinine 2.10 mg/dl (0.6-1.4) H 01/01/19 19:33 Est Cr Clr Drug Dosing 38.5 ml/min 01/01/19 19:33 Est GFR ( Amer) 36.4 01/01/19 19:33 Est GFR (Non-Af Amer) 31.4 01/01/19 19:33 BUN/Creatinine Ratio 13.0 (10-20) 01/01/19 19:33 Glucose 253 mg/dl (70-99) H 01/01/19 19:33 POC Glucose 229 (70-99) H 01/01/19 22:39 Lactate 2.3 mmol/L (0.4-2.0) H* 01/01/19 19:24 Calcium 9.6 mg/dl (8.5-10.1) 01/01/19 19:33 Magnesium 1.5 mg/dl (1.8-2.4) L 01/01/19 19:33 Total Bilirubin 1.1 mg/dl (0.2-1) H 01/01/19 19:33 AST 13 U/L (15-37) L 01/01/19 19:33 ALT 14 U/L (12-78) 01/01/19 19:33 Alkaline Phosphatase 70 U/L (45-117) 01/01/19 19:33 Troponin I < 0.015 ng/ml (0-0.045) 01/01/19 19:33 C-Reactive Protein 10.70 mg/dl (0-0.29) H 01/01/19 19:33 Total Protein 8.0 gm/dl (6.4-8.2) 01/01/19 19:33 Albumin 3.8 gm/dl (3.4-5.0) 01/01/19 19:33 Globulin 4.2 gm/dl (2.5-4.0) H 01/01/19 19:33 Albumin/Globulin Ratio 0.9 (0.9-2) 01/01/19 19:33 Procalcitonin 5.84 ng/ml (0-0.5) H 01/01/19 19:33 Urine Color Dark Yellow 01/01/19 20:18 Urine Appearance Turbid (Clear) A 01/01/19 20:18 Urine pH 5.0 (4.5-7.5) 01/01/19 20:18 Ur Specific [place] 1.020 (1.000-1.030) 01/01/19 20:18 Urine Protein 3+ (Negative) H 01/01/19 20:18 Urine Glucose (UA) Negative (Negative) 01/01/19 20:18 Urine Ketones Trace (Negative) H 01/01/19 20:18 Urine Blood 3+ (Negative) H 01/01/19 20:18 Urine Nitrite Positive (Negative) A 01/01/19 20:18 Urine Bilirubin Negative (Negative) 01/01/19 20:18 Urine Urobilinogen Negative (Negative) 01/01/19 20:18 Ur Leukocyte Esterase 3+ (Negative) H 01/01/19 20:18 Urine WBC (Auto) >30 /hpf (0-5) H 01/01/19 20:18 Urine RBC (Auto) >30 /hpf (0-4) H 01/01/19 20:18 U Hyaline Cast (Auto) 0 /lpf (0-5) 01/01/19 20:18 U Epithel Cells (Auto) >30 /lpf (0-5) H 01/01/19 20:18 Urine Bacteria (Auto) 4+ (Negative) H 01/01/19 20:18 Diagnostic Findings [place], [place] [phone] CT Scan Report Patient: MARISEL ZAVALA Date: 01/01/19 MR#: [id number]: 11 KRISTI RAMIREZ Acct ID:[id number]: Date: 1950[facility] Zip: [place] [id number] Age: 68Location: ED Sex: M Room/Bed: Att Phy:Diagnosis: FEVER, SOB, URINE ODOR Lu Phy: Marco Velasco MDService Date: 01/01/19 Fam Phy:Interpreting Phy: Tuan Knox MD Admit Phy: Ordering Phy: Marco Rivera DO cc: ~ ABDOMEN AND PELVIS CT WITHOUT CONTRAST CT DOSE: 1146.45 mGy.cm HISTORY: Right flank pain. TECHNIQUE: Multiaxial CT images of the abdomen and pelvis were performed without contrast. A dose lowering technique was utilized adhering to the principles of ALARA. COMPARISON STUDY: Abdomen and pelvis CT 10/16/2018. FINDINGS: Mild fibrotic changes again noted at the lung bases. No pneumoperitoneum. No pneumatosis. No suspicious lytic are blastic osseous lesions. The heart remains mildly enlarged. A mitral valve ring is again noted. The unenhanced liver, gallbladder, and pancreas are unremarkable. Small bilateral adrenal gland nodules remain stable. Bilateral perinephric edema/fat stranding has slightly progressed. This is most pronounced on the left.. Stable bilateral renal and splenic hypodense lesions. These are incompletely characterized on this noncontrast study but favor cysts. A few punctate stones within the right kidney. Stable left-sided nephrolithiasis. Dominant stone within the left kidney demonstrates a partial staghorn appearance and measures 1.6 cm. No ureteral stones. No hydronephrosis. Mild bladder wall thickening with adjacent fat stranding. No retroperitoneal lymphadenopathy. Bilobed appearance to the partially calcified distal abdominal aorta and right common iliac artery. This remains unchanged and raise the possibility of a chronic dissection. No aneurysm identified. Suboptimal evaluation for bowel pathology due to the lack of intravenous and oral contrast. However, there is no definite bowel wall thickening or obstruction. Colonic diverticulosis. No evidence for diverticulitis. Normal appendix. IMPRESSION: 1. Bilateral nephrolithiasis. No ureteral stones. No hydronephrosis. 2. Bladder wall thickening with adjacent fat stranding. This is new compared to the prior study. There is also progressive bilateral perinephric fat stranding/edema. Findings likely represent a cystitis with possible bilateral pyelonephritis. Recommend correlation with urinalysis. 3. No bowel wall thickening or obstruction. 4. Normal appendix. 5. Additional stable findings as described above. Electronically signed by: Tuan Knox M.D. 01/01/2019 8:25 PM Dictated: 01/01/192014 Transcribed: 01/01/192014 [place], [place] [phone] XRay Report Patient: MARISEL ZAVALA Date: 01/01/19 MR#: [id number]: 11 KRISTI RAMIREZ Acct ID:[id number]: Date: 1950[facility] [place] [facility] [id number] Age: 68Location: ED Sex: M Room/Bed: Att Phy:Diagnosis: FEVER, SOB, URINE ODOR Lu Phy: Marco Velasco MDServclotilde Date: 01/01/19 [facility] Phy:Interpreting Phy: Tuan Knox MD Admit Phy: Ordering Phy: Marco Rivera DO cc: ~ XR chest 1V portable HISTORY: Sepsis COMPARISON: Chest 10/04/2018. FINDINGS: No pneumothorax. No pleural effusions. The heart remains mildly enlarged. Mitral valve ring is again noted. There is mild central pulmonary vascular congestion without overt edema. No new focal lung consolidations to suggest pneumonia. IMPRESSION: Cardiomegaly with mild congestive change. This has improved in the interval. Electronically signed by: Tuan Knox M.D. 01/01/2019 7:51 PM Dictated: 01/01/191948 Transcribed: 01/01/191948 Code Status & VTE Plan Code Status Full code VTE Prophylaxis Plan VTE Prophylaxis will be ordered: Yes PG Care Time/CCT Total # of Minutes Spent Total Time Spent with Patient: Total time spent is greater than 50% in coordination of care (as documented) at patient's floor/unit and/or counseling patient: (1) Hypertension Hypertension type: essential hypertension Qualified Code(s): I10 - Essential (primary) hypertension (2) BPH (benign prostatic hyperplasia) Lower urinary tract symptom presence: symptoms present Lower urinary tract symptom detail: unspecified Qualified Code(s): N40.1 - Benign prostatic hyperplasia with lower urinary tract symptoms
[2019-01-01] MEDS ORDERED: ALUMINUM/MAGNESIUM SUSP 30 ML UDC PO PRN (22:31)
[2019-01-01] MEDS ORDERED: ALBUTEROL HFA 8 GM INHALER INH PRN (22:31)
[2019-01-01] MEDS ORDERED: ACETAMINOPHEN 325 MG TAB PO PRN (22:31)
[2019-01-01] MEDS ORDERED: GLUCOSE 10 TABS/TUBE PO PRN (22:31)
[2019-01-01] MEDS ORDERED: MAGNESIUM HYDROXIDE SUSP 30 ML UDC PO PRN (22:31)
[2019-01-01] MEDS ORDERED: CARBOHYDRATES FOR HYPOGLYCEMIA PO PRN (22:31)
[2019-01-01] MEDS ORDERED: GLUCAGON FOR INJ 1 MG VIAL SQ PRN (22:31)
[2019-01-01] MEDS ORDERED: POLYETHYLENE (MIRALAX) 17 GM PACK PO PRN (22:31)
[2019-01-01] MEDS ORDERED: GLUCOSE 40% GEL 15 GM TUBE PO PRN (22:31)
[2019-01-01] MEDS ORDERED: DEXTROSE 50% 50 ML SYRINGE IV PRN (22:31)
[2019-01-01] MEDS ORDERED: ONDANSETRON INJ 2 MG/ML 2 ML VIAL IV PRN (22:31)
[2019-01-01] MEDS: SODIUM CHLORIDE 0.9% 1000ML 1,000 ML IV SCH (23:07)
[2019-01-01] MEDS: METOPROLOL TARTRATE 25 MG TAB PO SCH (23:07)
[2019-01-01] MEDS: dilTIAZem HCL 180 MG CAPCR PO SCH (23:07)
[2019-01-01] MEDS: INSULIN GLARGINE SOLOSTAR 100 UNITS/ML 3 ML PEN SC SCH (23:08)
[2019-01-02 07:08] LABS: Estimated Average Glucose 123 mg/dl; Hemoglobin A1C 5.9 % (4.5-5.6)
[2019-01-02] MEDS: INSULIN ASPART 100 UNITS/ML 3 ML PEN SC SCH ×4 (09:41→20:56)
[2019-01-02] MEDS: INSULIN GLARGINE SOLOSTAR 100 UNITS/ML 3 ML PEN SC SCH ×2 (09:45→20:56)
--- NOTE | 2019-01-02 09:48 | Hospitalist Progress Note ---
Date of Service January 02, 2019 Assessment & Plan (1) Pyelonephritis: Bilateral pyelonephritis/secondary to cystitis/secondary to BPH with LUTS- Follow urine culture and sensitivity. Placed on ceftriaxone 2 g IV daily. NSS at 80 mils per hour. Follow urine output. Continue tamsulosin 0.8 mg p.o. at bedtime. Patient appears to be improving, awaiting sensitivites (2) Atrial fibrillation with RVR: Continue metoprolol tartrate, warfarin and diltiazem CD. Follow laboratory serially. (3) Acute kidney injury superimposed on chronic kidney disease: Creatinine 2.10, with range 1.54-3.5. Follow serial laboratories with hydration and antibiotics will recheck in AM. (4) Acute on chronic diastolic (congestive) heart failure: Patient does not have acute on chronic diastolic heart failure. Patiernt does have chronic diastolic heart failure Temporarily hold diuretics while gently rehydrating, follow clinical examination closely. (5) Hypertension: As above. (6) Dyslipidemia: Continue fenofibrate and rosuvastatin. (7) BPH (benign prostatic hyperplasia): As above continue tamsulosin 0.8 mg p.o. at bedtime. (8) Diabetes mellitus type 2, controlled: Adjust Tresiba to Lantus. Patient Accu-Cheks before meals and at bedtime with NovoLog coverage per scale. (9) Acute pyelonephritis: as noted above. Subjective Patient reports feeling shivering and tremors on wednesday. He did not want to come in to the hospital. His broght him in. He reports he does feel better today. He still reports that he is having difficulty urinating and has not noticed a large amount of urine. Patient was updated on his blood culture and urine culture. Review of Systems Review of Systems: All systems reviewed & are unremarkable except as noted in HPI & below Physical Exam Physical Exam: The patient is awake, alert and oriented 3, well developed and well nourished, normocephalic and atraumatic, lying in bed and in no acute distress. HEENT--PERRL, EOMI, mucous membranes and oropharynx normal. Neck--supple. No JVD. No bruits. Thyroid normal, trachea midline, no adenopathy. Heart--normal S1 and S2. No murmurs, rubs or gallops. Lungs--clear bilaterally, overall decreased breath sounds throughout. No respiratory distress, no accessory muscle use. Abdomen--normal bowel sounds and soft. Nontender. Nondistended, obese. Extremities--no cyanosis or clubbing. No edema. Dermatologic--normal skin turgor, normal color, no abnormal lymph nodes, no rash. Neurologic--cranial nerves II through XII grossly intact. Rheumatologic--normal range of motion. Psychiatric--normal affect. Results & Data Vital Signs (Past 12 Hours) Vital Signs Temp Pulse Pulse Resp BP BP Pulse Ox 01/02/19 08:36 36.6 C 81 16 110/74 98 01/02/19 03:56 37.1 C 72 20 103/72 98 01/01/19 22:26 36.7 C 23 102/70 94 01/01/19 22:13 113 H 22 125/88 94 01/01/19 22:01 113 H 22 125/88 94 PG Care Time/CCT Total # of Minutes Spent Total Time Spent with Patient: Total time spent is greater than 50% in coordination of care (as documented) at patient's floor/unit and/or counseling patient: (1) BPH (benign prostatic hyperplasia) Lower urinary tract symptom detail: unspecified Lower urinary tract symptom presence: symptoms present Qualified Code(s): N40.1 - Benign prostatic hyperplasia with lower urinary tract symptoms (2) Hypertension Hypertension type: essential hypertension Qualified Code(s): I10 - Essential (primary) hypertension
[2019-01-02] MEDS: CYANOCOBALAMIN (VITAMIN B-12) 100 MCG TABLET PO SCH (09:51)
[2019-01-02] MEDS: CHOLECALCIFEROL 1,000 UNITS 25 MCG TAB PO SCH (09:51)
[2019-01-02] MEDS: METOPROLOL TARTRATE 25 MG TAB PO SCH ×2 (09:52→20:28)
[2019-01-02] MEDS: OMEGA-3 (PURIFIED FISH OIL) 1 GM CAP PO SCH (09:52)
[2019-01-02] MEDS: ROSUVASTATIN CALCIUM 20 MG TAB PO SCH (09:53)
[2019-01-02] MEDS: FENOFIBRATE NANOCRYSTALLIZED 48 MG TABLET PO SCH (09:53)
[2019-01-02] MEDS: dilTIAZem HCL 180 MG CAPCR PO SCH ×2 (09:53→20:28)
[2019-01-02] MEDS: ASPIRIN 81 MG ECTAB PO SCH (09:53)
[2019-01-02] MEDS: SODIUM CHLORIDE 0.9% 1000ML 1,000 ML IV SCH ×2 (11:20→23:53)
[2019-01-02] MEDS: cefTRIAXone SODIUM 2,000 MG in DEXTROSE 5% 50 ML IV SCH (13:09)
[2019-01-02] MEDS: WARFARIN SOD 3 MG TAB PO SCH (16:21)
[2019-01-02] MEDS: TAMSULOSIN HCL 0.4 MG CAP PO SCH (20:29)
[2019-01-02] MEDS: FLUTICASONE HFA 110MCG INHALER INH SCH (20:30)
[2019-01-03] MEDS: INSULIN ASPART 100 UNITS/ML 3 ML PEN SC SCH ×5 (07:58→20:05)
[2019-01-03] MEDS: INSULIN GLARGINE SOLOSTAR 100 UNITS/ML 3 ML PEN SC SCH (08:00)
[2019-01-03] MEDS: CHOLECALCIFEROL 1,000 UNITS 25 MCG TAB PO SCH (08:01)
[2019-01-03] MEDS: ASPIRIN 81 MG ECTAB PO SCH (08:01)
[2019-01-03] MEDS: ROSUVASTATIN CALCIUM 20 MG TAB PO SCH (08:01)
[2019-01-03] MEDS: METOPROLOL TARTRATE 25 MG TAB PO SCH ×2 (08:01→20:02)
[2019-01-03] MEDS: OMEGA-3 (PURIFIED FISH OIL) 1 GM CAP PO SCH (08:02)
[2019-01-03] MEDS: FENOFIBRATE NANOCRYSTALLIZED 48 MG TABLET PO SCH (08:02)
[2019-01-03] MEDS: dilTIAZem HCL 180 MG CAPCR PO SCH ×2 (08:02→20:02)
[2019-01-03] MEDS: FLUTICASONE HFA 110MCG INHALER INH SCH ×2 (08:02→20:03)
[2019-01-03] MEDS: CYANOCOBALAMIN (VITAMIN B-12) 100 MCG TABLET PO SCH (08:03)
[2019-01-03 11:25] LABS: Hematocrit (blood only) 32.9 % (42-52); Mean Corpuscular Hemoglobin 29.6 pg (25-34); Mean Corpuscular Hgb Conc 33.4 g/dL (32-36); Mean Corpuscular Volume 88.7 fL (80-100); Mean Platelet Volume 9.9 fL (7.4-10.4); Platelet Count 141 K/uL (130-400); RDW Coefficient of Variation 15.4 % (11.5-14.5); RDW Standard Deviation 50.1 fL (36.4-46.3); Red Blood Count 3.71 M/uL (4.7-6.1); White Blood Count 13.66 K/uL (4.8-10.8)
[2019-01-03 11:42] LABS: INR 1.6 (0.9-1.1); Prothrombin Time 16.1 Seconds (9.0-12.0)
[2019-01-03 11:57] LABS: BUN Creatinine Ratio 16.8 (10-20); Calcium 9.1 mg/dl (8.5-10.1); Creatinine Clr Calc Pharmacy 42.9 ml/min; Est GFR (African American) 44.1; Est GFR (Non-African American) 38.1; Potassium 4.2 mmol/L (3.5-5.1)
--- NOTE | 2019-01-03 13:45 | XRay Report ---
XR chest 2V PA/lateral CLINICAL HISTORY: 68 years-old Male presenting with sob. TECHNIQUE: PA and lateral views of the chest were obtained. COMPARISON: 01/01/2019. FINDINGS: Atherosclerosis of the aortic arch. Mitral valve annuloplasty suspected. Cardiac silhouette enlarged. Surgical clips project over the right infrahilar region and right lung base. Minimal bibasilar opaci ties in the setting of mildly low lung volumes. No large effusion or pneumothorax. Degenerative buck es of the thoracic spine. Anchors noted in the right humeral head. External leads project over the th orax and upper abdomen to grating evaluation. Upper abdomen normal. IMPRESSION: 1. Cardiomegaly. No advanced congestive change or nivia pulmonary edema. 2. Mildly low lung volumes with minimal bibasilar opacities likely atelectasis. Electronically signed by: Kal Llanes M.D. 01/03/2019 1:43 PM
[2019-01-03] MEDS: cefTRIAXone SODIUM 2,000 MG in DEXTROSE 5% 50 ML IV SCH (15:00)
[2019-01-03] MEDS: WARFARIN SOD 3 MG TAB PO SCH (17:09)
[2019-01-03] MEDS: SODIUM CHLORIDE 0.9% 1000ML 1,000 ML IV SCH (19:23)
[2019-01-03] MEDS: TAMSULOSIN HCL 0.4 MG CAP PO SCH (20:03)
[2019-01-03] MEDS ORDERED: INSULIN GLARGINE SOLOSTAR 100 UNITS/ML 3 ML PEN SC ONE (20:23)
--- NOTE | 2019-01-03 22:58 | Hospitalist Progress Note ---
Date of Service January 03, 2019 Assessment & Plan (1) Pyelonephritis: Bilateral pyelonephritis/secondary to cystitis/secondary to BPH with LUTS- Follow urine culture and sensitivity. Placed on ceftriaxone 2 g IV daily. will stop IVF. Will continue with antibiotics. WBC has slowly improved down to 13. Follow urine output. Continue tamsulosin 0.8 mg p.o. at bedtime. Patient appears to be improving, sensitivities returned, sensitive to cephalosporin (2) Atrial fibrillation with RVR: Continue metoprolol tartrate, warfarin and diltiazem CD. Follow laboratory serially. (3) Acute kidney injury superimposed on chronic kidney disease: Creatinine 1.79, with range 1.54-3.5. Follow serial laboratories with hydration and antibiotics will recheck in AM. (4) Acute on chronic diastolic (congestive) heart failure: Patient does not have acute on chronic diastolic heart failure. Patiernt does have chronic diastolic heart failure Temporarily hold diuretics while gently rehydrating, follow clinical examination closely. (5) Hypertension: As above. (6) Dyslipidemia: Continue fenofibrate and rosuvastatin. (7) BPH (benign prostatic hyperplasia): As above continue tamsulosin 0.8 mg p.o. at bedtime. (8) Diabetes mellitus type 2, controlled: Adjust Tresiba to Lantus. Patient Accu-Cheks before meals and at bedtime with NovoLog coverage per scale. (9) Acute pyelonephritis: as noted above. Dispo: Plan was to discharge patient, but patient appears to be weakener today. will continue antibiotics, will obtain PT/OT, unsure if patient will be able to home. Patient was not able to sick up without help. Subjective Patient reports feeling generalized weakness and maliase. He also states he has been having more difficult breathing today. Patient also reports he still has lower abdominal pain . Review of Systems Review of Systems: All systems reviewed & are unremarkable except as noted in HPI & below Physical Exam Physical Exam: The patient is awake, alert and oriented 3, well developed and well nourished, normocephalic and atraumatic, lying in bed. Patient appears to be in distress. HEENT--PERRL, EOMI, mucous membranes and oropharynx normal. Neck--supple. No JVD. No bruits. Thyroid normal, trachea midline, no adenopathy. Heart--normal S1 and S2. No murmurs, rubs or gallops. Lungs--clear bilaterally, overall decreased breath sounds throughout. No r espiratory distress, no accessory muscle use. Abdomen--normal bowel sounds and soft. Nontender. Nondistended, obese. Extremities--no cyanosis or clubbing. No edema. Dermatologic--normal skin turgor, normal color, no abnormal lymph nodes, no rash. Neurologic--cranial nerves II through XII grossly intact. Rheumatologic--normal range of motion. Psychiatric--normal affect. Results & Data Vital Signs (Past 12 Hours) Vital Signs Temp Pulse Resp BP Pulse Ox 01/03/19 19:20 37.3 C 92 H 20 117/69 98 01/03/19 15:31 37.2 C 103 H 16 118/71 93 01/03/19 11:19 36.9 C 99 H 20 114/69 92 PG Care Time/CCT Total # of Minutes Spent Total Time Spent with Patient: Total time spent is greater than 50% in coordination of care (as documented) at patient's floor/unit and/or counseling patient: (1) BPH (benign prostatic hyperplasia) Lower urinary tract symptom detail: unspecified Lower urinary tract symptom presence: symptoms present Qualified Code(s): N40.1 - Benign prostatic hyperplasia with lower urinary tract symptoms (2) Hypertension Hypertension type: essential hypertension Qualified Code(s): I10 - Essential (primary) hypertension
--- NOTE | 2019-01-04 07:37 | Hospitalist Progress Note ---
Date of Service January 04, 2019 Results & Data Vital Signs (Past 12 Hours) Vital Signs Temp Pulse Pulse Resp BP Pulse Ox 01/04/19 07:26 36.7 C 97 H 20 130/76 97 01/04/19 04:06 36.8 C 102 H 22 119/67 94 01/04/19 00:57 90 01/03/19 23:43 87 24 98 01/03/19 23:07 37.2 C 86 20 112/73 97 PG Care Time/CCT Total # of Minutes Spent Total Time Spent with Patient: Total time spent is greater than 50% in coordination of care (as documented) at patient's floor/unit and/or counseling patient:
[2019-01-04 07:50] LABS: Eosinophils # (auto) 0.01 K/uL (0-0.5); Eosinophils % (auto) 0.1 %; Hematocrit (blood only) 32.3 % (42-52); Hemoglobin 10.7 g/dL (14.0-18.0); Immature Granulocytes # (auto) 0.02 K/uL (0.00-0.02); Immature Granulocytes % (auto) 0.2 %; Lymphocytes # (auto) 1.18 K/uL (1.2-3.4); Lymphocytes % (auto) 10.8 %; Mean Corpuscular Hemoglobin 29.1 pg (25-34); Mean Corpuscular Hgb Conc 33.1 g/dL (32-36); Mean Corpuscular Volume 87.8 fL (80-100); Mean Platelet Volume 10.1 fL (7.4-10.4); Monocytes % (auto) 7.3 %; Neutrophils # (auto) 8.88 K/uL (1.4-6.5); Neutrophils % (auto) 81.6 %; Platelet Count 134 K/uL (130-400); RDW Coefficient of Variation 15.3 % (11.5-14.5); RDW Standard Deviation 49.4 fL (36.4-46.3); Red Blood Count 3.68 M/uL (4.7-6.1); White Blood Count 10.89 K/uL (4.8-10.8)
[2019-01-04] MEDS: OMEGA-3 (PURIFIED FISH OIL) 1 GM CAP PO SCH (08:15)
[2019-01-04] MEDS: dilTIAZem HCL 180 MG CAPCR PO SCH (08:15)
[2019-01-04] MEDS: CYANOCOBALAMIN (VITAMIN B-12) 100 MCG TABLET PO SCH (08:15)
[2019-01-04] MEDS: FENOFIBRATE NANOCRYSTALLIZED 48 MG TABLET PO SCH (08:16)
[2019-01-04] MEDS: ASPIRIN 81 MG ECTAB PO SCH (08:16)
[2019-01-04] MEDS: METOPROLOL TARTRATE 25 MG TAB PO SCH (08:16)
[2019-01-04] MEDS: FLUTICASONE HFA 110MCG INHALER INH SCH (08:16)
[2019-01-04] MEDS: CHOLECALCIFEROL 1,000 UNITS 25 MCG TAB PO SCH (08:16)
[2019-01-04] MEDS: ROSUVASTATIN CALCIUM 20 MG TAB PO SCH (08:16)
[2019-01-04] MEDS: INSULIN ASPART 100 UNITS/ML 3 ML PEN SC SCH ×2 (08:19→11:43)
[2019-01-04] MEDS: INSULIN GLARGINE SOLOSTAR 100 UNITS/ML 3 ML PEN SC SCH (08:21)
[2019-01-04 08:26] LABS: BUN Creatinine Ratio 16.9 (10-20); Calcium 9.1 mg/dl (8.5-10.1); Creatinine Clr Calc Pharmacy 50.1 ml/min; Est GFR (African American) 53.4; Potassium 3.8 mmol/L (3.5-5.1)
[2019-01-04] MEDS ORDERED: LACTULOSE SYRUP 20 GM/30 ML UDC PO ONE (11:45)
--- NOTE | 2019-01-05 10:10 | Discharge Summary ---
Date of Service January 04, 2019 Admission HPI Per Admitting Provider The patient is a 68-year-old male with past medical history including diabetes mellitus, pancreatitis, hyperlipidemia, hyponatremia, acute on chronic diastolic CHF, acute renal failure due to tubular necrosis, acute embolic stroke, atrial fibrillation, UTI, abdominal aortic aneurysm, atrial flutter, complex sleep apnea syndrome, diabetic peripheral neuropathy and dyslipidemia. He most recently is was admitted to [facility] from 10/12-10/17 for an acute embolic CVA that occurred while off of anticoagulation for a procedure. Today he reports to the emergency department with 24 hours of worsening symptoms as noted above. Principal Diagnosis Acute Pyelonephritis Discharge Exam The patient is awake, alert and oriented 3, well developed and well nourished, normocephalic and atraumatic, lying in bed. NAD. HEENT--PERRL, EOMI, mucous membranes and oropharynx normal. Neck--supple. No JVD. No bruits. Thyroid normal, trachea midline, no adenopathy. Heart--normal S1 and S2. No murmurs, rubs or gallops. Lungs--clear bilaterally, overall decreased breath sounds throughout. No respiratory distress, no accessory muscle use. Abdomen--normal bowel sounds and soft. Nontender. Nondistended, obese. Extremities--no cyanosis or clubbing. No edema. Dermatologic--normal skin turgor, normal color, no abnormal lymph nodes, no rash. Neurologic--cranial nerves II through XII grossly intact. Rheumatologic--normal range of motion. Psychiatric--normal affect. Discharge Data Allergies Allergy/AdvReac Type Severity Reaction Status Date / Time No Known Allergies Allergy Verified 01/01/19 19:45 Consultations 01/01/19 20:33 ED Decision to Admit Stat 01/01/19 22:31 Consult Case Management - Discharge Planning Routine Ordered Studies 01/01/19 19:11 CT abd pelvis wo con Stat Hospital Course (1) Pyelonephritis: Bilateral pyelonephritis/secondary to cystitis/secondary to BPH with LUTS- Follow urine culture and sensitivity. Placed on ceftriaxone 2 g IV daily. will stop IVF. Will continue with antibiotics. WBC has slowly improved down to 10 Follow urine output. Continue tamsulosin 0.8 mg p.o. at bedtime. Patient appears to be improving, sensitivities returned, sensitive to cephalosporin (2) Atrial fibrillation with RVR: Continue metoprolol tartrate, warfarin and diltiazem CD. Follow laboratory serially. (3) Acute kidney injury superimposed on chronic kidney disease: Creatinine 1.79, with range 1.54-3.5. Follow serial laboratories with hydration and antibiotics will recheck in AM. (4) Acute on chronic diastolic (congestive) heart failure: Patient does not have acute on chronic diastolic heart failure. Patiernt does have chronic diastolic heart failure Temporarily held diuretics while gently rehydrating. will resume at discharge. (5) Hypertension: As above. (6) Dyslipidemia: Continue fenofibrate and rosuvastatin. (7) BPH (benign prostatic hyperplasia): As above continue tamsulosin 0.8 mg p.o. at bedtime. (8) Diabetes mellitus type 2, controlled: Adjust Tresiba to Lantus. Patient Accu-Cheks before meals and at bedtime with NovoLog coverage per scale. (9) Acute pyelonephritis: as noted above. Dispo: Patient did not want home health today Patient wanted to be discharge today. Explained he is improving, and will need to continue with antibiotics. Total Time Total Time Spent Total Time Spent (In Minutes): 35 Total Time Includes: Examination of the Patient, Discharge Planning and Medication Reconciliation Discharge Plan Discharge Items Patient Disposition: Home - Self-Care Reason For Visit: SEPSIS DUE TO UTI/PYELONEPHRITIS Discharge Diagnosis: sepsis due to UTI/ Pyelonephritis Activity: Resume your previous activity Non-emergency contact: Primary Care Provider Call non-emergency contact if: you have any medication questions Follow-up/Referrals: ProMarco MD [Primary Care Provider] - Diet: Carb Consistent or DM2 and Heart Healthy Addtl Attending Provider Instructions: You have been hospitalized for an acute medical problem which was an infection of your kidney. During your stay at [facility], we have made an effort to correct the problem that brought you to the hospital while keeping you as comfortable as possible. Antibiotics were used to bring your condition under control and your discharge instructions will include directions for any medications you should take after leaving the hospital. Please make sure you see your Primary Care Provider as part of your follow up plan. Pending Studies at Discharge: No Stand-Alone Forms: My [facility], Smoking Cessation Medications and DC Order Prescriptions: New cefixime 400 mg capsule 400 mg PO DAILY 10 Days Qty: 10 RF: 0 Continued warfarin 3 mg tablet 3 mg PO DAILY Qty: 90 RF: 0 tamsulosin 0.4 mg capsule 0.8 mg PO HS RF: 0 rosuvastatin [Crestor] 20 mg tablet 20 mg PO DAILY 30 Days Qty: 30 RF: 3 fenofibrate nanocrystallized 48 mg tablet 48 mg PO DAILY Qty: 90 RF: 3 metoprolol tartrate 25 mg tablet 25 mg PO BID Qty: 180 RF: 3 furosemide 40 mg tablet 40 mg PO DAILY Qty: 90 RF: 3 albuterol sulfate 90 mcg/actuation HFA aerosol inhaler 1 - 2 puffs inhalation Q4H PRN (Reason: shortness of breath) RF: 0 omega-3 fatty acids 1,250 mg capsule 1,250 mg PO DAILY RF: 0 insulin aspart U-100 100 unit/mL (3 mL) insulin pen 30 units subcut TIDM Qty: 3 RF: 0 cholecalciferol (vitamin D3) 1,000 unit (25 mcg) tablet 1,000 units PO DAILY RF: 0 cyanocobalamin (vitamin B-12) 100 mcg tablet 100 mcg PO DAILY RF: 0 Arnuity Ellipta 100 mcg/actuation blister with device 1 puffs INH DAILY Qty: 30 RF: 11 diltiazem HCl 180 mg capsule,extended release 24hr 180 mg PO BID 30 Days Qty: 60 RF: 4 aspirin [Ecotrin Low Strength] 81 mg Tablet,Delayed Release (Dr/Ec) 81 mg PO QAM 30 Days Qty: 30 RF: 4 Tresiba FlexTouch U-200 200 unit/mL (3 mL) insulin pen 40 units subcut BID RF: 0 Discharge Orders: Discharge Order (Routine); Ordered 01/04/19 Ordered By: Noé Ledezma Admission Data Admit Date/Time: 01/01/19 21:27 Attending Provider: oNé Ledezma Admit Provider: Kamran Mayorga Primary Care Provider: Marco Velasco Other Providers: Kamran Mayorga Other Interventions: Discharge Summary Assessment (RN) Last Done: 01/04/19 11:21 DC Date/Time DO NOT enter until pt leaves facility: 01/04/19 12:10
== END 2019-01-04 12:10 | disposition home or self-care (01) | DRG 689 ==
LOC: ED 18:56 → SUATTDRO 21:27 → 2S 22:13

== ENCOUNTER 2019-07-19 14:11 | Inpatient (IN) ==
[2019-07-19] MEDS ORDERED: ACETAMINOPHEN 500 MG TAB PO STA (14:50)
--- NOTE | 2019-07-19 15:15 | XRay Report ---
XR chest 1V portable HISTORY: SEPSIS COMPARISON: Chest 06/30/2019. FINDINGS: The cardiac silhouette remains mildly enlarged. Mitral valve ring is again noted. No new fo viktoria lung consolidations to suggest pneumonia. No evidence for pulmonary edema. No pleural effusions. No pneumothorax. There are low lung volumes. IMPRESSION: Stable mild cardiomegaly. ACT 112: Negative or not required by law. Electronically signed by: Tuan Knox M.D. 07/19/2019 3:14 PM
[2019-07-19 15:22] LABS: Basophils # (auto) 0.02 K/uL (0-0.2); Basophils % (auto) 0.1 %; Eosinophils # (auto) 0.03 K/uL (0-0.5); Eosinophils % (auto) 0.2 %; Hematocrit (blood only) 41.5 % (42-52); Hemoglobin 13.9 g/dL (14.0-18.0); Immature Granulocytes # (auto) 0.04 K/uL (0.00-0.02); Immature Granulocytes % (auto) 0.2 %; Lymphocytes # (auto) 0.87 K/uL (1.2-3.4); Lymphocytes % (auto) 5.2 %; Mean Corpuscular Hgb Conc 33.5 g/dL (32-36); Mean Corpuscular Volume 89.4 fL (80-100); Mean Platelet Volume 10.2 fL (7.4-10.4); Monocytes # (auto) 1.89 K/uL (0.11-0.59); Monocytes % (auto) 11.2 %; Neutrophils # (auto) 13.98 K/uL (1.4-6.5); Neutrophils % (auto) 83.1 %; Platelet Count 252 K/uL (130-400); RDW Coefficient of Variation 15.5 % (11.5-14.5); RDW Standard Deviation 50.2 fL (36.4-46.3); Red Blood Count 4.64 M/uL (4.7-6.1); White Blood Count 16.83 K/uL (4.8-10.8)
[2019-07-19 15:31] LABS: Alanine Aminotransferase 21 U/L (12-78); Albumin Level 4.1 gm/dl (3.4-5.0); Aspartate Aminotransferase 13 U/L (15-37); BUN Creatinine Ratio 13.6 (10-20); Blood Urea Nitrogen 27 mg/dl (7-18); Calcium 9.7 mg/dl (8.5-10.1); Carbon Dioxide 28 mmol/L (21-32); Chloride 104 mmol/L (98-107); Est GFR (African American) 37.9; Est GFR (Non-African American) 32.7; Glucose 132 mg/dl (70-99); Magnesium 1.9 mg/dl (1.8-2.4); Potassium 3.6 mmol/L (3.5-5.1); Sodium 139 mmol/L (136-145)
--- NOTE | 2019-07-19 15:32 | CT Scan Report ---
CT head/brain wo con CLINICAL HISTORY: confusion COMPARISON STUDY: MRI the brain dated 10/11/2018, head CT dated 10/10/2018 TECHNIQUE: Axial CT of the brain is performed from the vertex to the skull base. IV contrast was not administered for this examination. A dose lowering technique was utilized adhering to the principles of ALARA. CT DOSE: FINDINGS: No intra or extra-axial mass lesions are visualized. There is no CT evidence of acute cortical infarc tion. There is no evidence of midline shift. There is no acute hemorrhage. No calvarial fractures ar e visualized. There is an old left MCA territory infarct. There is no evidence of pathologic ventricular dilatation. There is no evidence of acute sinusitis IMPRESSION: 1. Old left MCA territory infarct 2. No acute intracranial findings. ACT 112: Negative or not required by law. Electronically signed by: Sridhar Peterson M.D. 07/19/2019 3:31 PM
[2019-07-19 15:33] LABS: INR 2.3 (0.9-1.1); Partial Thromboplastin Ratio 1.4; Partial Thromboplastin Time 37.7 Seconds (21.0-31.0); Prothrombin Time 22.8 Seconds (9.0-12.0)
[2019-07-19 15:36] LABS: Alkaline Phosphatase 69 U/L (45-117); Bilirubin,Total 0.8 mg/dl (0.2-1); Globulin 4.1 gm/dl (2.5-4.0); Total Protein 8.2 gm/dl (6.4-8.2); Troponin I < 0.015 ng/ml (0-0.045)
--- NOTE | 2019-07-19 15:42 | CT Scan Report ---
CT SCAN OF THE ABDOMEN AND PELVIS WITHOUT IV CONTRAST CLINICAL HISTORY: Change in mental status. Urinary tract infection. COMPARISON STUDY: Abdominal CT dated 01/01/2019. CT angiogram of the abdomen and pelvis dated 018. TECHNIQUE: CT scan of the abdomen and pelvis is performed from the lung bases to the proximal femora. Images are reviewed in the axial, sagittal, and coronal planes. IV contrast was not administered for this examination. Note that the examination is performed in suboptimal fashion without IV contrast. A dose lowering technique was utilized adhering to the principles of ALARA. FINDINGS: Lung bases: The heart is enlarged and without pericardial effusion. Postoperative change is seen invo lving the mitral valve. A small hiatal hernia is noted. Scarring/atelectasis is noted at both lung ba ses. No airspace consolidation or pleural effusion is identified a calcified granuloma seen at the ri ght lung base. Liver: The unenhanced liver is normal in size, contour, and attenuation. There is no intrahepatic mitra iary ductal dilatation. Gallbladder: Unremarkable. Spleen: Normal in size and attenuation. There are calcified splenic granulomas. A 1.8 cm splenic hypo density seen on image #63 has decreased in size from prior studies and is of doubtful significance. Pancreas: The unenhanced pancreas is moderately atrophic and grossly unremarkable. Adrenal glands: Unremarkable. Kidneys: The unenhanced kidneys are atrophic and without hydronephrosis. There is a 2 cm irregular ca lculus in the upper pole of the left kidney. No ureteral stone is seen. There is asymmetric left-side d perinephric stranding and trace fluid as compared to the right. There are least 2 punctate nonobstr ucting right renal calculi. Bilateral renal cysts measure up to 5 cm. Additional subcentimeter cortic al hypodensities also likely represent cysts but are too small for definitive characterization. Abdominal vasculature: There is moderate atherosclerotic calcification and mild ectasia of the abdomi nal aorta. 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 Bowel: No bowel obstruction is identified. There is mild colonic diverticulosis without CT evidence o f acute diverticulitis. The appendix is well-visualized and normal. Peritoneum: There is no intraperitoneal free air or abdominal ascites. There is a small fat-containin g umbilical hernia. Lymphadenopathy: None. Pelvic viscera: The prostate gland is enlarged and heterogeneous noting median lobe hypertrophy. The bladder wall is mildly thickened and trabeculated suggesting chronic outlet obstruction. Postoperativ e change is noted in the right groin. Skeletal structures: The skeletal structures are osteopenic. There is moderate lumbosacral spondylosi s. No lytic or blastic lesions are seen. IMPRESSION: 1. Bilateral nephrolithiasis, with a large nonobstructing calculus in the left upper pole collecting system. 2. There is asymmetric bilateral perinephric stranding and trace fluid, left greater than right. Stephan elate clinically and with urinalysis for evidence of ascending urinary tract infection/pyelonephritis . 3. Prostatomegaly with evidence of chronic bladder outlet obstruction. 4. 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 5. Cardiomegaly. 6. Additional findings as above. ACT 112: Negative or not required by law. Electronically signed by: Bharathi Whyte M.D. 07/19/2019 3:41 PM
[2019-07-19] MEDS ORDERED: PIPERACILLIN/TAZOBACTAM 4.5 GM/120 ML BAG IV ONE (15:48)
[2019-07-19] MEDS ORDERED: PIPERACILL/TAZOBAC CONSULT ACTIVE PRN (15:48)
--- NOTE | 2019-07-19 16:01 | Emergency Department Note ---
Impression & Plan Acute pyelonephritis, Fever, Acute alteration in mental status ED Provider Note NAME: MARISEL ZAVALA AGE: 69 SEX: M : 1950 ARRIVES VIA: Walk-In INFORMANT: Patient, the patient significant other ED PROVIDER(S): Marco Rivera DO CHIEF COMPLAINT: Altered mental status HPI: The patient is a 69-year-old male who presented to the emergency department for an evaluation of altered mental status. The patient was found to have a fever. The patient states that he has been noticing increased urinary frequency. The patient did not take any medication for fever. He was not evaluated by his primary care physician. He presents the emergency department through triage with his significant other for an evaluation of altered mental status. The patient denies having any chest pain or difficulty breathing. He does complain of generalized weakness. He denies having any lower extremity swelling or pain. The patient states his symptoms are moderate at this time. ROS: See above HPI for pertinent positives & negatives. A total of 10 systems reviewed and were otherwise negative. PAST MEDICAL HISTORY: See Below PAST SURGICAL HISTORY: See Below FAMILY HISTORY: See Below SOCIAL HISTORY: See Below HOME MEDICATIONS: See Below ALLERGIES: See Below VITALS: See Below PHYSICAL EXAMINATION: GENERAL: The patient is awake and alert. He is somewhat anxious appearing but overall comfortable. EYES: The conjunctivae are clear. The pupils are round and reactive. EARS, NOSE, MOUTH AND THROAT: The nose is without any evidence of any deformity. Mucous membranes are dry. NECK: The neck is nontender and supple. RESPIRATORY: Normal respiratory effort is noted there is no evidence of wheezing rhonchi or rales CARDIOVASCULAR: Tachycardic and irregular rhythm was noted to auscultation. There was no definite murmur. GASTROINTESTINAL: The abdomen is soft and mildly distended. There is diffuse tenderness to palpation but no guarding rigidity. BACK: No midline tenderness or or step-off noted range of motion in flexion extension as well as rotation no signs of muscle spasm noted MUSCULOSKELETAL/EXTREMITIES: There is no evidence of gross deformity full range of motion is noted in the hips and shoulders. SKIN: Skin is warm and dry. There is trace pedal edema bilaterally. NEUROLOGIC: Patient is awake alert and oriented to person place but not situation. Strength was symmetric but diminished. MEDICAL DECISION MAKING: The patient is a 69-year-old male who presented to the emergency department for an evaluation of altered mental status. The patient was found to have a fever. According to his significant other the patient does have a history of sepsis in the past and his altered mental status today is definitely new for him. I discussed the patient's laboratory and radiographic studies with him and his significant other. He was found to have signs of pyelonephritis on CT of the abdomen and pelvis as well as by urinalysis. The patient was started on IV fluids as well as IV antibiotics. He was reevaluated multiple times. The patient was somewhat improved. I discussed his case with the on-call [facility] hospitalist group. They have agreed to evaluate the patient in the emergency department for further management and disposition. Triage Nursing notes reviewed. Prior medical records reviewed Vital Signs: reviewed and remarkable for fever and tachycardia. Differential diagnosis: Viral syndrome, otitis, pharyngitis, pneumonia, influenza, meningitis, urinary tract infection, sepsis, bacteremia, as well as other pathologies. ER treatment provided: See below Diagnostics interpreted by me: ECG: EKG was obtained in the emergency department. My interpretation is atrial fibrillation at 99 bpm. There is no ectopy. There was lateral ST depressions noted. This was compared to a tracing from January 03, 2019. No significant changes were noted. Cardiac Monitoring: An order was placed for continuous cardiac monitoring. The monitor shows a rate of 111 with atrial fibrillation rhythm. Laboratory studies: As stated above and show below. Imaging studies: See below Consultation(s): 1620: [facility]. Past Med/Surg History Medical History Abdominal aortic aneurysm dissection (Acute) Abnormal diffusion capacity determined by pulmonary function test (Acute) Acute kidney injury superimposed on chronic kidney disease AF (atrial fibrillation) (Resolved) Atrial flutter (Resolved) Background diabetic retinopathy associated with type 2 diabetes mellitus (Acute) Bilateral renal cysts (Acute) BPH (benign prostatic hyperplasia) (Acute) Calculus of ureter (Acute 11/30/12) Chronic low back pain (Acute) Complex sleep apnea syndrome (Acute) Congestive heart failure (Resolved) Coronary atherosclerosis of [place] coronary vessel (Acute 11/30/12) Diabetes mellitus type 2, controlled (Acute) Diabetic peripheral neuropathy associated with type 2 diabetes mellitus (Acute) Diverticulosis (Acute) Dysesthesia (Resolved) Dyslipidemia (Resolved) Enlarged prostate without lower urinary tract symptoms (luts) (Resolved) Hypertension (Acute) Interstitial lung disease (Acute) Intervertebral disc disease (Acute) Joint pain, knee (Acute) Kidney stone on left side (Acute) Loss of protective sensation of skin of foot (Resolved) Lumbar back pain (Acute) Neuropathy in diabetes (Resolved 11/30/12) Obesity (Acute) Restrictive lung disease (Acute) Skin change (Acute) SOBOE (shortness of breath on exertion) (Acute) Stage III chronic kidney disease (Acute) 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 (Acute) Type 2 diabetes mellitus, with long-term current use of insulin (Acute) Vitamin B12 deficiency (Acute) Vitamin D deficiency (Acute) Surgical History History of mitral valve replacement History of shoulder surgery History of surgical removal of pilonidal cyst Status post mitral valve annuloplasty (Acute) Family History Mother Diabetes Colon cancer Grandmother Multiple sclerosis Father Coronary heart disease Diabetes Myocardial infarction Grandfather Stroke Sister Diabetes Hypertension Brother Hypertension Diabetes Son Depression Denies family history of Ovarian cancer Prostate cancer Breast cancer Social History Preferred Language: Spanish Communication Ability: Effective Visual Impairment: No Limitations Hearing Ability: Normal Rib Sawyer Required: No Beliefs That Will Affect Care: None marital status: Current Living Situation: Spouse current occupational status: retired current occupation: Former [employer] Feels Safe at Home: Yes Smoking Status: Former smoker Hx Alcohol Use: No Hx Substance Use: No Childhood Exposure to Second-Hand Smoke: No Dental Care, Regularly: No Physical Activity Frequency: Does not Exercise Seatbelt Use: always Sunscreen Use: No Allergies Allergies Allergy/AdvReac Type Severity Reaction Status Date / Time No Known Drug Allergies Allergy Verified 06/30/19 12:41 Home Meds Home Medications Medication Instructions Recorded Confirmed omega-3 fatty acids 1,250 mg 1,250 mg PO DAILY 08/12/18 04/04/19 capsule albuterol sulfate 90 mcg/actuation 1 - 2 puffs INHALATION Q4H PRN gm 09/14/18 04/04/19 aerosol inhaler cholecalciferol (vitamin D3) 25 1,000 units PO DAILY tab 10/04/18 04/04/19 mcg (1,000 unit) tablet cyanocobalamin (vitamin B-12) 100 100 mcg PO DAILY tab 10/04/18 04/04/19 mcg tablet Previous Rx's Medication Instructions Recorded fenofibrate nanocrystallized 48 mg 48 mg PO DAILY #90 tab 11/22/18 tablet metoprolol tartrate 25 mg tablet 25 mg PO BID #180 tab 11/22/18 furosemide 40 mg tablet 40 mg PO DAILY #90 tab 11/24/18 blood sugar diagnostic #100 ea 01/26/19 lancets 33 gauge #100 ea 01/31/19 insulin degludec 200 unit/mL (3 60 units SUBCUT QPM #27 ml 02/13/19 mL) subcutaneous pen pregabalin 150 mg capsule 150 mg PO TID #270 cap 02/17/19 fluticasone propionate 110 2 puffs INH DAILY #12 gm 02/28/19 mcg/actuation HFA aerosol inhaler warfarin 3 mg tablet 3 mg PO DAILY #100 tab 03/06/19 rosuvastatin 20 mg tablet 20 mg PO DAILY 30 Days #90 tab 03/17/19 diltiazem HCl 180 mg 180 mg PO BID 30 Days #180 cap 04/05/19 capsule,extended release 24 hr tramadol 50 mg tablet 50 mg PO Q8H PRN #180 tab 05/02/19 tamsulosin 0.4 mg capsule 0.8 mg PO HS #180 cap 06/15/19 pen needle, diabetic 32 gauge x #200 ea 06/[birth year]1932" cefuroxime axetil 250 mg tablet 250 mg PO BID #14 tab 06/22/19 diclofenac sodium 1 % topical gel 2 gm TOP QID PRN #100 gm 07/11/19 insulin aspart U-100 100 unit/mL 20 units SQ TID #15 ml 07/11/19 (3 mL) subcutaneous pen Results & Data (ED) Vital Signs Vital Signs - 24 hr 07/19/19 14:18 07/19/19 14:30 07/19/19 14:32 Temperature 38.6 C H Temperature Source Oral Pulse Rate 96 H 98 H 106 H Pulse Rate from SpO2 Sensor 93 H 101 H Respiratory Rate 20 18 22 Respiratory Effort / Characteristics Non-Labored Respiratory Depth Normal Blood Pressure 105/44 L 126/82 Blood Pressure Mean 64 94 Blood Pressure Position Sitting Pulse Oximetry 94 94 93 Oxygen Delivery Method Room Air Sepsis Recent Fever Within 48 Hours Yes Sepsis New/Unexplained Change in Mental Status No Sepsis Action Taken by Nursing No Action Required 07/19/19 14:40 07/19/19 14:50 07/19/19 15:00 Temperature Temperature Source Pulse Rate 106 H 112 H 103 H Pulse Rate from SpO2 Sensor 99 H 103 H Respiratory Rate 23 21 21 Respiratory Effort / Characteristics Respiratory Depth Blood Pressure Blood Pressure Mean Blood Pressure Position Pulse Oximetry 92 97 Oxygen Delivery Method Sepsis Recent Fever Within 48 Hours Sepsis New/Unexplained Change in Mental Status Sepsis Action Taken by Nursing 07/19/19 15:15 07/19/19 15:32 07/19/19 15:45 Temperature Temperature Source Pulse Rate 96 H 114 H 91 H Pulse Rate from SpO2 Sensor 111 H 93 H Respiratory Rate 20 15 15 Respiratory Effort / Characteristics Respiratory Depth Blood Pressure Blood Pressure Mean Blood Pressure Position Pulse Oximetry 91 89 L Oxygen Delivery Method Sepsis Recent Fever Within 48 Hours Sepsis New/Unexplained Change in Mental Status Sepsis Action Taken by Nursing 07/19/19 16:00 07/19/19 16:01 Temperature Temperature Source Pulse Rate 90 91 H Pulse Rate from SpO2 Sensor 97 H 91 H Respiratory Rate 19 22 Respiratory Effort / Characteristics Respiratory Depth Blood Pressure 114/71 Blood Pressure Mean 77 Blood Pressure Position Pulse Oximetry 93 94 Oxygen Delivery Method Sepsis Recent Fever Within 48 Hours Sepsis New/Unexplained Change in Mental Status Sepsis Action Taken by [facility] Medications Current Medication List: was personally reviewed by me Laboratory Data Attestation: I reviewed the patient's lab results. Result diagrams: 07/19/19 14:55 07/19/19 14:55 Lab Results 07/19/19 07/19/19 07/19/19 Range/Units 14:55 14:55 14:55 WBC 16.83 H (4.8-10.8) K/uL RBC 4.64 L (4.7-6.1) M/uL Hgb 13.9 L (14.0-18.0) g/dL Hct 41.5 L (42-52) % MCV 89.4 (80-100) fL MCH 30.0 (25-34) pg MCHC 33.5 (32-36) g/dL RDW Std Deviation 50.2 H (36.4-46.3) fL RDW Coeff of Romulo 15.5 H (11.5-14.5) % Plt Count 252 (130-400) K/uL MPV 10.2 (7.4-10.4) fL Immature Gran % (Auto) 0.2 % Neut % (Auto) 83.1 % Lymph % (Auto) 5.2 % [place] % (Auto) 11.2 % Eos % (Auto) 0.2 % Baso % (Auto) 0.1 % Immature Gran # (Auto) 0.04 H (0.00-0.02) K/uL Neut # (Auto) 13.98 H (1.4-6.5) K/uL Lymph # (Auto) 0.87 L (1.2-3.4) K/uL [place] # (Auto) 1.89 H (0.11-0.59) K/uL Eos # (Auto) 0.03 (0-0.5) K/uL Baso # (Auto) 0.02 (0-0.2) K/uL PT 22.8 H (9.0-12.0) Seconds INR 2.3 H (0.9-1.1) APTT 37.7 H (21.0-31.0) Seconds PTT Ratio 1.4 Sodium (136-145) mmol/L Potassium (3.5-5.1) mmol/L Chloride (98-107) mmol/L Carbon Dioxide (21-32) mmol/L Anion Gap (3-11) BUN (7-18) mg/dl Creatinine (0.6-1.4) mg/dl Est Cr Clr Drug Dosing Est GFR ( Amer) Est GFR (Non-Af Amer) BUN/Creatinine Ratio (10-20) Glucose (70-99) mg/dl Lactate (0.4-2.0) mmol/L Calcium (8.5-10.1) mg/dl Magnesium (1.8-2.4) mg/dl Total Bilirubin (0.2-1) mg/dl AST (15-37) U/L ALT (12-78) U/L Alkaline Phosphatase (45-117) U/L Troponin I (0-0.045) ng/ml Total Protein (6.4-8.2) gm/dl Albumin (3.4-5.0) gm/dl Globulin (2.5-4.0) gm/dl Albumin/Globulin Ratio (0.9-2) Procalcitonin 0.15 (0-0.5) ng/ml 07/19/19 07/19/19 Range/Units 14:55 14:55 WBC (4.8-10.8) K/uL RBC (4.7-6.1) M/uL Hgb (14.0-18.0) g/dL Hct (42-52) % MCV (80-100) fL MCH (25-34) pg MCHC (32-36) g/dL RDW Std Deviation (36.4-46.3) fL RDW Coeff of Romulo (11.5-14.5) % Plt Count (130-400) K/uL MPV (7.4-10.4) fL Immature Gran % (Auto) % Neut % (Auto) % Lymph % (Auto) % [place] % (Auto) % Eos % (Auto) % Baso % (Auto) % Immature Gran # (Auto) (0.00-0.02) K/uL Neut # (Auto) (1.4-6.5) K/uL Lymph # (Auto) (1.2-3.4) K/uL [place] # (Auto) (0.11-0.59) K/uL Eos # (Auto) (0-0.5) K/uL Baso # (Auto) (0-0.2) K/uL PT (9.0-12.0) Seconds INR (0.9-1.1) APTT (21.0-31.0) Seconds PTT Ratio Sodium 139 (136-145) mmol/L Potassium 3.6 (3.5-5.1) mmol/L Chloride 104 (98-107) mmol/L Carbon Dioxide 28 (21-32) mmol/L Anion Gap 7.0 (3-11) BUN 27 H (7-18) mg/dl Creatinine 2.02 H (0.6-1.4) mg/dl Est Cr Clr Drug Dosing Not Reportable Est GFR ( Amer) 37.9 Est GFR (Non-Af Amer) 32.7 BUN/Creatinine Ratio 13.6 (10-20) Glucose 132 H (70-99) mg/dl Lactate 2.0 (0.4-2.0) mmol/L Calcium 9.7 (8.5-10.1) mg/dl Magnesium 1.9 (1.8-2.4) mg/dl Total Bilirubin 0.8 (0.2-1) mg/dl AST 13 L (15-37) U/L ALT 21 (12-78) U/L Alkaline Phosphatase 69 (45-117) U/L Troponin I < 0.015 (0-0.045) ng/ml Total Protein 8.2 (6.4-8.2) gm/dl Albumin 4.1 (3.4-5.0) gm/dl Globulin 4.1 H (2.5-4.0) gm/dl Albumin/Globulin Ratio 1.0 (0.9-2) Procalcitonin (0-0.5) ng/ml Administered Medications Discontinued Medications Acetaminophen (Tylenol) 1,000 mg PO NOW STA Stop: 07/19/19 14:51 Last Admin: 07/19/19 15:05 Dose: 1,000 mg Documented by: [id number] Piperacillin Sod/Tazobactam Sod (Zosyn) 4.5 gm in 120 mls @ 240 mls/hr IV NOW ONE Stop: 07/19/19 16:17 Last Infusion: 07/19/19 16:29 Dose: 0 mls/hr Documented by: [id number] Admin: 07/19/19 16:01 Dose: 240 mls/hr Documented by: [id number] Imaging Data Radiologist's Impression: XR chest 1V portable HISTORY: SEPSIS COMPARISON: Chest 06/30/2019. FINDINGS: The cardiac silhouette remains mildly enlarged. Mitral valve ring is again noted. No new focal lung consolidations to suggest pneumonia. No evidence for pulmonary edema. No pleural effusions. No pneumothorax. There are low lung volumes. IMPRESSION: Stable mild cardiomegaly. ACT 112: Negative or not required by law. Electronically signed by: Tuan Knox M.D. 07/19/2019 3:14 PM Dictated: 07/19/19 151 Transcribed: 07/19/[address] head/brain wo con CLINICAL HISTORY: confusion COMPARISON STUDY: MRI the brain dated 10/11/2018, head CT dated 10/10/2018 TECHNIQUE: Axial CT of the brain is performed from the vertex to the skull base. IV contrast was not administered for this examination. A dose lowering technique was utilized adhering to the principles of ALARA. CT DOSE: FINDINGS: No intra or extra-axial mass lesions are visualized. There is no CT evidence of acute cortical infarction. There is no evidence of midline shift. There is no acute hemorrhage. No calvarial fractures are visualized. There is an old left MCA territory infarct. There is no evidence of pathologic ventricular dilatation. There is no evidence of acute sinusitis IMPRESSION: 1. Old left MCA territory infarct 2. No acute intracranial findings. ACT 112: Negative or not required by law. Electronically signed by: Sridhar Peterson M.D. 07/19/2019 3:31 PM Dictated: 07/19/19 1528 Transcribed: 07/19/[address] SCAN OF THE ABDOMEN AND PELVIS WITHOUT IV CONTRAST CLINICAL HISTORY: Change in mental status. Urinary tract infection. COMPARISON STUDY: Abdominal CT dated 01/01/2019. CT angiogram of the abdomen and pelvis dated 02/25/2017. TECHNIQUE: CT scan of the abdomen and pelvis is performed from the lung bases to the proximal femora. Images are reviewed in the axial, sagittal, and coronal planes. IV contrast was not administered for this examination. Note that the examination is performed in suboptimal fashion without IV contrast. A dose lowering technique was utilized adhering to the principles of ALARA. FINDINGS: Lung bases: The heart is enlarged and without pericardial effusion. Postoperative change is seen involving the mitral valve. A small hiatal hernia is noted. Scarring/atelectasis is noted at both lung bases. No airspace consolidation or pleural effusion is identified a calcified granuloma seen at the right lung base. Liver: The unenhanced liver is normal in size, contour, and attenuation. There is no intrahepatic biliary ductal dilatation. Gallbladder: Unremarkable. Spleen: Normal in size and attenuation. There are calcified splenic granulomas. A 1.8 cm splenic hypodensity seen on image #63 has decreased in size from prior studies and is of doubtful significance. Pancreas: The unenhanced pancreas is moderately atrophic and grossly unremarkable. Adrenal glands: Unremarkable. Kidneys: The unenhanced kidneys are atrophic and without hydronephrosis. There is a 2 cm irregular calculus in the upper pole of the left kidney. No ureteral stone is seen. There is asymmetric left-sided perinephric stranding and trace fluid as compared to the right. There are least 2 punctate nonobstructing right renal calculi. Bilateral renal cysts measure up to 5 cm. Additional subcentimeter cortical hypodensities also likely represent cysts but are too small for definitive characterization. Abdominal vasculature: There is moderate atherosclerotic calcification and mild ectasia of the abdominal aorta. 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 Bowel: No bowel obstruction is identified. There is mild colonic diverticulosis without CT evidence of acute diverticulitis. The appendix is well-visualized and normal. Peritoneum: There is no intraperitoneal free air or abdominal ascites. There is a small fat-containing umbilical hernia. Lymphadenopathy: None. Pelvic viscera: The prostate gland is enlarged and heterogeneous noting median lobe hypertrophy. The bladder wall is mildly thickened and trabeculated suggesting chronic outlet obstruction. Postoperative change is noted in the right groin. Skeletal structures: The skeletal structures are osteopenic. There is moderate lumbosacral spondylosis. No lytic or blastic lesions are seen. IMPRESSION: 1. Bilateral nephrolithiasis, with a large nonobstructing calculus in the left upper pole collecting system. 2. There is asymmetric bilateral perinephric stranding and trace fluid, left greater than right. Correlate clinically and with urinalysis for evidence of ascending urinary tract infection/pyelonephritis. 3. Prostatomegaly with evidence of chronic bladder outlet obstruction. 4. 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 5. Cardiomegaly. 6. Additional findings as above. ACT 112: Negative or not required by law. Electronically signed by: Bharathi Whyte M.D. 07/19/2019 3:41 PM Dictated: 07/19/19 1530 Transcribed: 07/19/19 1530 Blood Pressure Blood Pressure Findings: Normal blood pressure Discharge Plan Visit Data Chief Complaint: Urinary Symptoms Stated Complaint: URINARY SYMPTOMS,CHEST PAINS,SOB ED Provider: Marco Rivera Discharge Problem: Acute pyelonephritis, Fever, Acute alteration in mental status Patient Disposition: Being Evaluated by Hospitalist Condition: Good Forms Stand Alone Forms: [employer] Prescriptions Prescriptions: No Action fenofibrate nanocrystallized 48 mg tablet 48 mg PO DAILY Qty: 90 RF: 3 metoprolol tartrate 25 mg tablet 25 mg PO BID Qty: 180 RF: 3 furosemide 40 mg tablet 40 mg PO DAILY Qty: 90 RF: 3 (DME) OneTouch Ultra Blue Test Strip strip See Rx Instructions .ROUTE .MEDSUPPLY Qty: 100 RF: 5 (DME) lancets [OneTouch Delica Lancets] 33 gauge misc See Rx Instructions .ROUTE .MEDSUPPLY Qty: 100 RF: 3 Tresiba FlexTouch U-200 200 unit/mL (3 mL) insulin pen 60 units subcut QPM Qty: 27 RF: 1 pregabalin [Lyrica] 150 mg capsule 150 mg PO TID Qty: 270 RF: 3 warfarin 3 mg tablet 3 mg PO DAILY Qty: 100 RF: 3 rosuvastatin [Crestor] 20 mg tablet 20 mg PO DAILY 30 Days Qty: 90 RF: 3 diltiazem HCl 180 mg capsule,extended release 24hr 180 mg PO BID 30 Days Qty: 180 RF: 1 tramadol 50 mg tablet 50 mg PO Q8H PRN (Reason: pain) Qty: 180 RF: 1 tamsulosin 0.4 mg capsule 0.8 mg PO HS Qty: 180 RF: 3 (DME) pen needle, diabetic [BD Reyna 2nd Gen Pen Needle] 32 gauge x 5/32" needle See Rx Instructions .ROUTE .MEDSUPPLY Qty: 200 RF: 3 cefuroxime axetil 250 mg tablet 250 mg PO BID Qty: 14 RF: 0 insulin aspart U-100 [Novolog Flexpen U-100 Insulin] 100 unit/mL (3 mL) insulin pen 20 units SQ TID Qty: 15 RF: 3 diclofenac sodium 1 % gel 2 gm TOP QID PRN (Reason: knee pain) Qty: 100 RF: 2 albuterol sulfate 90 mcg/actuation HFA aerosol inhaler 1 - 2 puffs inhalation Q4H PRN (Reason: shortness of breath) RF: 0 Flovent HFA 110 mcg/actuation HFA aerosol inhaler 2 puffs INH DAILY Qty: 12 RF: 11 omega-3 fatty acids 1,250 mg capsule 1,250 mg PO DAILY RF: 0 cholecalciferol (vitamin D3) 1,000 unit (25 mcg) tablet 1,000 units PO DAILY RF: 0 cyanocobalamin (vitamin B-12) 100 mcg tablet 100 mcg PO DAILY RF: 0 Referrals Referrals: Marco Velasco MD [Primary Care Provider] - Discharge Problem: Fever Qualifiers: Fever type: unspecified Qualified Code(s): R50.9 - Fever, unspecified
--- NOTE | 2019-07-19 17:32 | History & Physical Report ---
Date of Service July 19, 2019 Assessment & Plan (1) Acute pyelonephritis: This patient is a 69-year-old male with a history of A. fib on Coumadin, HTN, hyperlipidemia, chronic diastolic CHF, CALOS on CPAP, DM 2 with neuropathy, ILD, chronic AAA with dissection, BPH, embolic CVA, CKD 3, chronic back pain, OA, mitral valve repair, and recurrent UTI with nephrolithiasis, who presents with fevers and chills along with fatigue and confusion found to have a UTI with acute bilateral, left greater than right pyelonephritis and bilateral nephrolithiasis. -Admit to medical floor with telemetry -UA was collected after antibiotics were given in the ER so he may end up being negative on culture -Was given Zosyn in the ER-review of previous urine cultures shows consistently E. coli that is pansensitive except is resistant for quinolones-will change to Rocephin 2000 mg IV every 24 hours -Given bilateral nephrolithiasis and multiple recurrent UTIs, complicated UTI, also with enlarged heterogenous prostate on imaging-we will consult urology -No IV fluids needed given history of diastolic heart failure and he does not seem dehydrated -Tylenol as needed for fever -He is not having any pain -Follow blood cultures (2) Acute metabolic encephalopathy: Likely secondary to fever and UTI/pyelonephritis CT of the head negative for acute disease, renal function just slightly worse than baseline -Supportive care -Treating pyelonephritis as above (3) Fever: With pyelonephritis on imaging and a history of recurrent UTIs UA pending at the time of admission but with presumed UTI and pyelonephritis Chest x-ray without pneumonia No other signs or symptoms of infection elsewhere -Treating with antibiotics as above Tylenol as needed for fever (4) Abdominal aortic aneurysm dissection: Chronic from's previous on imaging -Follows with vascular surgery as an outpatient -Continue on home Crestor, warfarin (5) BPH (benign prostatic hyperplasia): Heterogenous and enlarged prostate on imaging as above -Continue home tamsulosin -Consulting urology given recurrent UTIs -Monitor for urinary retention (6) Diabetes mellitus type 2, controlled: On high doses of insulin as an outpatient -Check hemoglobin A1c in the morning -Continue home basal insulin but convert to Lantus from Tresiba continue 40 units twice daily -NovoLog sliding scale insulin -Accu-Cheks q. before meals and at bedtime -Diabetic diet (7) Hypertension: Controlled blood pressures here -Continue home metoprolol, diltiazem, furosemide (8) Stage III chronic kidney disease: Creatinine baseline ranges from 1.5-1.9 Creatinine here on admission is 2.0 may be slightly prerenal -Encourage p.o. intake --Avoid nephrotoxins -renally dose meds when appropriate -follow BMP (9) Vitamin D deficiency: Hold vitamin D given nephrolithiasis (10) AF (atrial fibrillation): With rate controlled atrial fibrillation here -Continue metoprolol, diltiazem -Continue warfarin and follow INR daily in the setting of antibiotic use -Admit to medical floor with telemetry (11) Chronic diastolic CHF (congestive heart failure): Is not volume overloaded -Continue home furosemide and we will not give IV fluids at this time (12) Obesity: Needs weight loss counseling (13) Interstitial lung disease: No acute issues at this time but does have chronic dyspnea on exertion 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 -Follow-up with PCP as an outpatient or pulmonology for PFTs (14) Chronic low back pain: Continue tramadol as needed as per home dosing (15) Complex sleep apnea syndrome: Order CPAP for here-he is unsure of settings-will start at 8 cm H2O (16) Coronary atherosclerosis of [place] coronary vessel: -Continue statin, warfarin -Continue metoprolol (17) DVT prophylaxis: Coumadin Disposition-admit to medical floor with telemetry, expected least a 2 midnight stay Full code as per discussion with the patient and his at the bedside History of Present Illness Chief Complaint: Chills, fatigue, confusion Primary Care Provider: Marco Velasco MD This patient is a 69-year-old male with a history of A. fib on Coumadin, HTN, hyperlipidemia, chronic diastolic CHF, CALOS on CPAP, DM 2 with neuropathy, ILD, chronic AAA with dissection, BPH, embolic CVA, CKD 3, chronic back pain, OA, mitral valve repair, and recurrent UTI with nephrolithiasis, who presents with fevers and chills along with fatigue confusion today from home. He woke up this morning with the chills and his noted that he seemed confused and was concerned that he had another UTI. He denies any back or flank pain, no abdominal pain. He does have to take MiraLAX daily in order to have a daily bowel movement. He denies any dysuria or hematuria, he does have chronic lower urinary tract symptoms and is on tamsulosin. He has never seen a urologist but has had 10 UTIs in the last 9 months as per his . Review of the microbiology cultures reveals that all but 1 of his UTIs have been the same E. coli that is resistant to fluoroquinolones. Allergies Allergy/AdvReac Type Severity Reaction Status Date / Time No Known Drug Allergies Allergy Verified 07/19/19 16:44 Home Medications Home Medications Medication Instructions Recorded Confirmed Type omega-3 fatty acids 1,250 mg 1,250 mg PO QAM 08/12/18 07/19/19 History capsule albuterol sulfate 90 mcg/actuation 1 - 2 puffs INHALATION Q4H PRN gm 09/14/18 07/19/19 History aerosol inhaler cholecalciferol (vitamin D3) 25 1,000 units PO QDL tab 10/04/18 07/19/19 History mcg (1,000 unit) tablet cyanocobalamin (vitamin B-12) 100 100 mcg PO QAM tab 10/04/18 07/19/19 History mcg tablet metoprolol tartrate 25 mg tablet 25 mg PO BID #180 tab 11/22/18 07/19/19 Rx blood sugar diagnostic #100 ea 01/26/19 07/19/19 Rx lancets 33 gauge #100 ea 01/31/19 07/19/19 Rx pregabalin 150 mg capsule 150 mg PO TID #270 cap 02/17/19 07/19/19 Rx diltiazem HCl 180 mg 180 mg PO BID 30 Days #180 cap 04/05/19 07/19/19 Rx capsule,extended release 24 hr tramadol 50 mg tablet 50 mg PO Q8H PRN #180 tab 05/02/19 07/19/19 Rx tamsulosin 0.4 mg capsule 0.8 mg PO HS #180 cap 06/15/19 07/19/19 Rx pen needle, diabetic 32 gauge x #200 ea 06/21/19 07/19/19 Rx 5/32" diclofenac sodium 1 % topical gel 2 gm TOP QID PRN #100 gm 07/11/19 07/19/19 Rx fenofibrate nanocrystallized 48 mg PO QDL 07/19/19 07/19/19 History fluticasone propionate [Flovent 2 puffs INH DAILY PRN 07/19/19 07/19/19 History HFA] furosemide 40 mg PO QAM 07/19/19 07/19/19 History insulin aspart U-100 [Novolog 20 units SQ TIDM 07/19/19 07/19/19 History Flexpen U-100 Insulin] insulin degludec [Tresiba 40 units SUBCUT BID 07/19/19 07/19/19 History FlexTouch U-200] rosuvastatin [Crestor] 20 mg PO QAM 07/19/19 07/19/19 History warfarin 3 mg PO HS 07/19/19 07/19/19 History Past Med/Surg History Medical History Abdominal aortic aneurysm dissection (Acute) Abnormal diffusion capacity determined by pulmonary function test (Acute) AF (atrial fibrillation) Atrial flutter (Resolved) Background diabetic retinopathy associated with type 2 diabetes mellitus (Acute) Bilateral renal cysts (Acute) BPH (benign prostatic hyperplasia) (Acute) Calculus of ureter (Acute 11/30/12) Chronic anticoagulation Chronic diastolic CHF (congestive heart failure) Chronic low back pain (Acute) Complex sleep apnea syndrome (Acute) Congestive heart failure (Resolved) Coronary atherosclerosis of [place] coronary vessel (Acute 11/30/12) Diabetes mellitus type 2, controlled (Acute) Diabetic peripheral neuropathy associated with type 2 diabetes mellitus (Acute) Diverticulosis (Acute) Dysesthesia (Resolved) Dyslipidemia (Resolved) Enlarged prostate without lower urinary tract symptoms (luts) (Resolved) Hypertension (Acute) Interstitial lung disease (Acute) Intervertebral disc disease (Acute) Joint pain, knee (Acute) Kidney stone on left side (Acute) Loss of protective sensation of skin of foot (Resolved) Lumbar back pain (Acute) Neuropathy in diabetes (Resolved 11/30/12) Obesity (Acute) Restrictive lung disease (Acute) Skin change (Acute) SOBOE (shortness of breath on exertion) (Acute) Stage III chronic kidney disease (Acute) 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 (Acute) Type 2 diabetes mellitus, with long-term current use of insulin (Acute) Vitamin B12 deficiency (Acute) Vitamin D deficiency (Acute) Surgical History History of mitral valve replacement History of shoulder surgery History of surgical removal of pilonidal cyst History of total left knee replacement Status post mitral valve annuloplasty (Acute) Family History Mother Diabetes Colon cancer Grandmother Multiple sclerosis Father Coronary heart disease Diabetes Myocardial infarction Grandfather Stroke Sister Diabetes Hypertension Brother Hypertension Diabetes Son Depression Denies family history of Ovarian cancer Prostate cancer Breast cancer Social History Preferred Language: [place] Communication Ability: Effective Visual Impairment: No Limitations Hearing Ability: Normal Arm Rest Builder Required: No Beliefs That Will Affect Care: None marital status: Current Living Situation: Spouse current occupational status: retired current occupation: Former [employer] Feels Safe at Home: Yes Smoking Status: Former smoker Hx Alcohol Use: No Hx Substance Use: No Childhood Exposure to Second-Hand Smoke: No Dental Care, Regularly: No Physical Activity Frequency: Does not Exercise Seatbelt Use: always Sunscreen Use: No Review of Systems Review of Systems: All systems reviewed & are unremarkable except as noted in HPI & below Denies chest pain Has chronic dyspnea on exertion Positive for fatigue Positive for chronic lower back pain No abdominal pain No nausea or vomiting, no diarrhea Physical Exam Constitutional: WD/WN, vitals as above + obese Eyes: PERRL, conjunctivae normal, anicteric sclerae ENMT: external ear and nose normal, oropharynx normal Neck: trachea midline, no thyromegaly Respiratory: normal respiratory effort, lungs clear to auscultation Cardiovascular: RRR, no murmur, no edema Chest (Breasts): Chest: normal inspection of chest Gastrointestinal (Abdomen): normal bowel sounds, soft, nontender, no hepatosplenomegaly Musculoskeletal: Extremities: extremities normal to inspection; no cyanosis and no clubbing Skin: no rashes, warm and dry Neurologic: moves all extremities and awake; no focal motor deficits Psychiatric: A+Ox3, euthymic affect Lymphatic: no lymphedema Results & Data Results & Data ([facility]) Vital Signs (Past 12 Hours) Vital Signs Temp Pulse Resp BP Pulse Ox 07/19/19 17:15 83 26 H 95 07/19/19 17:01 83 20 95 07/19/19 17:00 85 28 H 117/66 93 07/19/19 16:45 85 16 95 07/19/19 16:33 91 H 18 106/63 93 07/19/19 16:31 93 H 21 93 07/19/19 16:30 87 17 106/63 92 07/19/19 16:15 93 H 22 94 07/19/19 16:01 91 H 22 94 07/19/19 16:00 90 19 114/71 93 07/19/19 15:45 91 H 15 89 L 07/19/19 15:32 114 H 15 91 07/19/19 15:15 96 H 20 07/19/19 15:00 103 H 21 07/19/19 14:50 112 H 21 97 07/19/19 14:40 106 H 23 92 07/19/19 14:32 106 H 22 93 07/19/19 14:30 98 H 18 126/82 94 07/19/19 14:18 38.6 C H 96 H 20 105/44 L 94 Laboratory Results 07/19/19 07/19/19 07/19/19 Range/Units 17:24 14:55 14:55 WBC (4.8-10.8) K/uL RBC (4.7-6.1) M/uL Hgb (14.0-18.0) g/dL Hct (42-52) % MCV (80-100) fL MCH (25-34) pg MCHC (32-36) g/dL RDW Std Deviation (36.4-46.3) fL RDW Coeff of Romulo (11.5-14.5) % Plt Count (130-400) K/uL MPV (7.4-10.4) fL Immature Gran % (Auto) % Neut % (Auto) % Lymph % (Auto) % [place] % (Auto) % Eos % (Auto) % Baso % (Auto) % Immature Gran # (Auto) (0.00-0.02) K/uL Neut # (Auto) (1.4-6.5) K/uL Lymph # (Auto) (1.2-3.4) K/uL [place] # (Auto) (0.11-0.59) K/uL Eos # (Auto) (0-0.5) K/uL Baso # (Auto) (0-0.2) K/uL PT (9.0-12.0) Seconds INR (0.9-1.1) APTT (21.0-31.0) Seconds PTT Ratio Sodium 139 (136-145) mmol/L Potassium 3.6 (3.5-5.1) mmol/L Chloride 104 (98-107) mmol/L Carbon Dioxide 28 (21-32) mmol/L Anion Gap 7.0 (3-11) BUN 27 H (7-18) mg/dl Creatinine 2.02 H (0.6-1.4) mg/dl Est Cr Clr Drug Dosing Not Reportable Est GFR ( Amer) 37.9 Est GFR (Non-Af Amer) 32.7 BUN/Creatinine Ratio 13.6 (10-20) Glucose 132 H (70-99) mg/dl Lactate 2.0 (0.4-2.0) mmol/L Calcium 9.7 (8.5-10.1) mg/dl Magnesium 1.9 (1.8-2.4) mg/dl Total Bilirubin 0.8 (0.2-1) mg/dl AST 13 L (15-37) U/L ALT 21 (12-78) U/L Alkaline Phosphatase 69 (45-117) U/L Troponin I < 0.015 (0-0.045) ng/ml Total Protein 8.2 (6.4-8.2) gm/dl Albumin 4.1 (3.4-5.0) gm/dl Globulin 4.1 H (2.5-4.0) gm/dl Albumin/Globulin Ratio 1.0 (0.9-2) Procalcitonin (0-0.5) ng/ml Urine Color Pending Urine Appearance Pending Urine pH Pending Ur Specific [place] Pending Urine Protein Pending Urine Glucose (UA) Pending Urine Ketones Pending Urine Blood Pending Urine Nitrite Pending Urine Bilirubin Pending Urine Urobilinogen Pending Ur Leukocyte Esterase Pending 07/19/19 07/19/19 07/19/19 Range/Units 14:55 14:55 14:55 WBC 16.83 H (4.8-10.8) K/uL RBC 4.64 L (4.7-6.1) M/uL Hgb 13.9 L (14.0-18.0) g/dL Hct 41.5 L (42-52) % MCV 89.4 (80-100) fL MCH 30.0 (25-34) pg MCHC 33.5 (32-36) g/dL RDW Std Deviation 50.2 H (36.4-46.3) fL RDW Coeff of Romulo 15.5 H (11.5-14.5) % Plt Count 252 (130-400) K/uL MPV 10.2 (7.4-10.4) fL Immature Gran % (Auto) 0.2 % Neut % (Auto) 83.1 % Lymph % (Auto) 5.2 % [place] % (Auto) 11.2 % Eos % (Auto) 0.2 % Baso % (Auto) 0.1 % Immature Gran # (Auto) 0.04 H (0.00-0.02) K/uL Neut # (Auto) 13.98 H (1.4-6.5) K/uL Lymph # (Auto) 0.87 L (1.2-3.4) K/uL [place] # (Auto) 1.89 H (0.11-0.59) K/uL Eos # (Auto) 0.03 (0-0.5) K/uL Baso # (Auto) 0.02 (0-0.2) K/uL PT 22.8 H (9.0-12.0) Seconds INR 2.3 H (0.9-1.1) APTT 37.7 H (21.0-31.0) Seconds PTT Ratio 1.4 Sodium (136-145) mmol/L Potassium (3.5-5.1) mmol/L Chloride (98-107) mmol/L Carbon Dioxide (21-32) mmol/L Anion Gap (3-11) BUN (7-18) mg/dl Creatinine (0.6-1.4) mg/dl Est Cr Clr Drug Dosing Est GFR ( Amer) Est GFR (Non-Af Amer) BUN/Creatinine Ratio (10-20) Glucose (70-99) mg/dl Lactate (0.4-2.0) mmol/L Calcium (8.5-10.1) mg/dl Magnesium (1.8-2.4) mg/dl Total Bilirubin (0.2-1) mg/dl AST (15-37) U/L ALT (12-78) U/L Alkaline Phosphatase (45-117) U/L Troponin I (0-0.045) ng/ml Total Protein (6.4-8.2) gm/dl Albumin (3.4-5.0) gm/dl Globulin (2.5-4.0) gm/dl Albumin/Globulin Ratio (0.9-2) Procalcitonin 0.15 (0-0.5) ng/ml Urine Color Urine Appearance Urine pH Ur Specific [place] Urine Protein Urine Glucose (UA) Urine Ketones Urine Blood Urine Nitrite Urine Bilirubin Urine Urobilinogen Ur Leukocyte Esterase Diagnostic Findings Chest x-ray: Stable mild cardiomegaly Head CT: IMPRESSION: 1. Old left MCA territory infarct 2. No acute intracranial findings. CT SCAN OF THE ABDOMEN AND PELVIS WITHOUT IV CONTRAST CLINICAL HISTORY: Change in mental status. Urinary tract infection. COMPARISON STUDY: Abdominal CT dated 01/01/2019. CT angiogram of the abdomen and pelvis dated 02/25/2017. TECHNIQUE: CT scan of the abdomen and pelvis is performed from the lung bases to the proximal femora. Images are reviewed in the axial, sagittal, and coronal planes. IV contrast was not administered for this examination. Note that the examination is performed in suboptimal fashion without IV contrast. A dose lowering technique was utilized adhering to the principles of ALARA. FINDINGS: Lung bases: The heart is enlarged and without pericardial effusion. Postoperative change is seen involving the mitral valve. A small hiatal hernia is noted. Scarring/atelectasis is noted at both lung bases. No airspace consolidation or pleural effusion is identified a calcified granuloma seen at the right lung base. Liver: The unenhanced liver is normal in size, contour, and attenuation. There is no intrahepatic biliary ductal dilatation. Gallbladder: Unremarkable. Spleen: Normal in size and attenuation. There are calcified splenic granulomas. A 1.8 cm splenic hypodensity seen on image #63 has decreased in size from prior studies and is of doubtful significance. Pancreas: The unenhanced pancreas is moderately atrophic and grossly unremarkable. Adrenal glands: Unremarkable. Kidneys: The unenhanced kidneys are atrophic and without hydronephrosis. There is a 2 cm irregular calculus in the upper pole of the left kidney. No ureteral stone is seen. There is asymmetric left-sided perinephric stranding and trace fluid as compared to the right. There are least 2 punctate nonobstructing right renal calculi. Bilateral renal cysts measure up to 5 cm. Additional subcentimeter cortical hypodensities also likely represent cysts but are too small for definitive characterization. Abdominal vasculature: There is moderate atherosclerotic calcification and mild ectasia of the abdominal aorta. 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 Bowel: No bowel obstruction is identified. There is mild colonic diverticulosis without CT evidence of acute diverticulitis. The appendix is well-visualized and normal. Peritoneum: There is no intraperitoneal free air or abdominal ascites. There is a small fat-containing umbilical hernia. Lymphadenopathy: None. Pelvic viscera: The prostate gland is enlarged and heterogeneous noting median lobe hypertrophy. The bladder wall is mildly thickened and trabeculated suggesting chronic outlet obstruction. Postoperative change is noted in the right groin. Skeletal structures: The skeletal structures are osteopenic. There is moderate lumbosacral spondylosis. No lytic or blastic lesions are seen. IMPRESSION: 1. Bilateral nephrolithiasis, with a large nonobstructing calculus in the left upper pole collecting system. 2. There is asymmetric bilateral perinephric stranding and trace fluid, left greater than right. Correlate clinically and with urinalysis for evidence of ascending urinary tract infection/pyelonephritis. 3. Prostatomegaly with evidence of chronic bladder outlet obstruction. 4. 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 5. Cardiomegaly. 6. Additional findings as above. ECG Additional Comments: ECG with atrial fibrillation with rate of 99 and a left posterior fascicular block, unchanged from previous Code Status & VTE Plan Code Status Full code VTE Prophylaxis Plan VTE Prophylaxis will be ordered: Yes PG Care Time/CCT Total # of Minutes Spent Total Time Spent with Patient: Total time spent is greater than 50% in coordination of care (as documented) at patient's floor/unit and/or counseling patient: Coding Level of Care Code 90683 Initial Inpt Care Lvl 3 Diagnoses Acute pyelonephritis N10 Acute metabolic encephalopathy G93.41 Fever R50.9 Fever type: unspecified Abdominal aortic aneurysm dissection I71.02 BPH (benign prostatic hyperplasia) N40.1 Lower urinary tract symptom presence: symptoms present Lower urinary tract symptom detail: unspecified Diabetes mellitus type 2, controlled E11.9 Hypertension I10 Hypertension type: essential hypertension Stage III chronic kidney disease N18.3 Vitamin D deficiency E55.9 AF (atrial fibrillation) I48.91 Chronic diastolic CHF (congestive heart failure) I50.32 Obesity E66.9 Interstitial lung disease J84.9 Chronic low back pain M54.5; G89.29 Complex sleep apnea syndrome G47.31 Coronary atherosclerosis of [place] coronary vessel I25.10 [place] vs. transplanted heart: [place] heart Associated angina: without angina DVT prophylaxis Z29.9 (1) Fever Fever type: unspecified Qualified Code(s): R50.9 - Fever, unspecified (2) BPH (benign prostatic hyperplasia) Lower urinary tract symptom presence: symptoms present Lower urinary tract symptom detail: unspecified Qualified Code(s): N40.1 - Benign prostatic hyperplasia with lower urinary tract symptoms (3) Coronary atherosclerosis of [place] coronary vessel [place] vs. transplanted heart: [place] heart Associated angina: without angina Qualified Code(s): I25.10 - Atherosclerotic heart disease of [place] coronary artery without angina pectoris (4) Hypertension Hypertension type: essential hypertension Qualified Code(s): I10 - Essential (primary) hypertension
[2019-07-19 17:44] LABS: Appearance Urine Turbid (Clear); Bacteria Urine Automated 2+ (Negative); Bilirubin Urine Negative (Negative); Blood Urine 2+ (Negative); Color Urine Yellow; Glucose Urine UA Negative (Negative); Ketones Urine Negative (Negative); Leukocyte Esterase Urine 3+ (Negative); Nitrite Urine Positive (Negative); Protein Urine 1+ (Negative); Specific Gravity Urine 1.018 (1.000-1.030); Urobilinogen Urine Negative (Negative); WBC Urine Automated >30 /hpf (0-5); pH Urine 5.5 (4.5-7.5)
[2019-07-19] MEDS ORDERED: GLUCAGON FOR INJ 1 MG VIAL SQ PRN (20:41)
[2019-07-19] MEDS ORDERED: GLUCOSE 10 TABS/TUBE PO PRN (20:41)
[2019-07-19] MEDS ORDERED: CARBOHYDRATES FOR HYPOGLYCEMIA PO PRN (20:41)
[2019-07-19] MEDS ORDERED: DICLOFENAC SOD 1% GEL 100 GM TUBE EXT PRN (20:41)
[2019-07-19] MEDS ORDERED: ALBUTEROL HFA 8 GM INHALER INH PRN (20:41)
[2019-07-19] MEDS ORDERED: ONDANSETRON INJ 2 MG/ML 2 ML VIAL IV PRN (20:41)
[2019-07-19] MEDS ORDERED: TRAMADOL HCL 50 MG TABLET PO PRN (20:41)
[2019-07-19] MEDS ORDERED: ENOXAPARIN INJ 40 MG/0.4 ML SYR SQ SCH (20:41)
[2019-07-19] MEDS ORDERED: GLUCOSE 40% GEL 15 GM TUBE PO PRN (20:41)
[2019-07-19] MEDS ORDERED: DEXTROSE 50% 50 ML SYRINGE IV PRN (20:41)
[2019-07-19] MEDS ORDERED: PATIENT'S WEIGHT NEEDED SCH (22:00)
[2019-07-19] MEDS: INSULIN ASPART 100 UNITS/ML 3 ML PEN SC SCH (22:30)
[2019-07-19] MEDS: METOPROLOL TARTRATE 25 MG TAB PO SCH (22:31)
[2019-07-19] MEDS: TAMSULOSIN HCL 0.4 MG CAP PO SCH (22:31)
[2019-07-19] MEDS: WARFARIN SOD 3 MG TAB PO SCH (22:33)
[2019-07-19] MEDS: dilTIAZem HCL 180 MG CAPCR PO SCH (22:33)
[2019-07-19] MEDS: INSULIN GLARGINE 100 UNIT/ML VIAL SQ SCH (22:34)
[2019-07-19] MEDS: cefTRIAXone SODIUM 2,000 MG in DEXTROSE 5% 50 ML IV SCH (22:42)
[2019-07-20] MEDS: INSULIN ASPART 100 UNITS/ML 3 ML PEN SC SCH ×7 (00:17→22:05)
[2019-07-20] MEDS: ACETAMINOPHEN 325 MG TAB PO PRN ×2 (03:27→20:42)
[2019-07-20] MEDS: FLUTICASONE FUROATE 100MCG 14 PUFFS/INHALER INH SCH (08:27)
[2019-07-20] MEDS: OMEGA-3 (PURIFIED FISH OIL) 1 GM CAP PO SCH (08:27)
[2019-07-20] MEDS: FUROSEMIDE 40 MG TAB PO SCH (08:28)
[2019-07-20] MEDS: METOPROLOL TARTRATE 25 MG TAB PO SCH ×2 (08:28→20:42)
[2019-07-20] MEDS: ROSUVASTATIN CALCIUM 20 MG TAB PO SCH (08:29)
[2019-07-20] MEDS: dilTIAZem HCL 180 MG CAPCR PO SCH ×2 (08:30→20:42)
[2019-07-20] MEDS: INSULIN GLARGINE 100 UNIT/ML VIAL SQ SCH ×2 (08:30→20:40)
[2019-07-20] MEDS: POLYETHYLENE (MIRALAX) 17 GM PACK PO SCH (08:35)
[2019-07-20] MEDS: PREGABALIN 150 MG CAP PO SCH ×2 (08:35→20:41)
[2019-07-20 09:07] LABS: Basophils # (auto) 0.01 K/uL (0-0.2); Basophils % (auto) 0.1 %; Eosinophils # (auto) 0.04 K/uL (0-0.5); Eosinophils % (auto) 0.3 %; Hematocrit (blood only) 37.7 % (42-52); Hemoglobin 12.6 g/dL (14.0-18.0); INR 1.9 (0.9-1.1); Immature Granulocytes # (auto) 0.03 K/uL (0.00-0.02); Immature Granulocytes % (auto) 0.2 %; Lymphocytes # (auto) 1.36 K/uL (1.2-3.4); Lymphocytes % (auto) 9.6 %; Mean Corpuscular Hemoglobin 29.8 pg (25-34); Mean Corpuscular Hgb Conc 33.4 g/dL (32-36); Mean Corpuscular Volume 89.1 fL (80-100); Mean Platelet Volume 10.1 fL (7.4-10.4); Monocytes # (auto) 1.77 K/uL (0.11-0.59); Monocytes % (auto) 12.5 %; Neutrophils % (auto) 77.3 %; Platelet Count 213 K/uL (130-400); Prothrombin Time 19.7 Seconds (9.0-12.0); RDW Coefficient of Variation 15.7 % (11.5-14.5); RDW Standard Deviation 50.8 fL (36.4-46.3); Red Blood Count 4.23 M/uL (4.7-6.1); White Blood Count 14.11 K/uL (4.8-10.8)
[2019-07-20 09:22] LABS: BUN Creatinine Ratio 14.6 (10-20); Calcium 9.5 mg/dl (8.5-10.1); Creatinine Clr Calc Pharmacy 43.1 ml/min; Est GFR (African American) 43.8; Est GFR (Non-African American) 37.8; Magnesium 2.1 mg/dl (1.8-2.4); Potassium 3.6 mmol/L (3.5-5.1)
[2019-07-20 09:50] LABS: Estimated Average Glucose 123 mg/dl; Hemoglobin A1C 5.9 % (4.5-5.6)
[2019-07-20] MEDS: CYANOCOBALAMIN (VITAMIN B-12) 100 MCG TABLET PO SCH (12:16)
[2019-07-20] MEDS: FENOFIBRATE NANOCRYSTALLIZED 48 MG TABLET PO SCH (12:16)
--- NOTE | 2019-07-20 14:44 | Electrocardiogram Report ---
Test Reason : Blood Pressure : / mmHG Vent. Rate : 099 BPM Atrial Rate : 105 BPM P-R Int : 000 ms QRS Dur : 112 ms QT Int : 318 ms P-R-T Axes : 000 115 012 degrees QTc Int : 408 ms Atrial fibrillation Left posterior fascicular block Abnormal ECG When compared with ECG of 03-JAN-2019 06:26, No significant change was found Confirmed by Manny Hi ([id number]) on 07/20/2019 2:43:48 PM Referred By: REFERRED SELF Confirmed By:Manny Hi
--- NOTE | 2019-07-20 14:47 | Urology Consultation ---
Date of Consultation July 20, 2019 Assessment & Plan (1) UTI (urinary tract infection): Assessment #1 urinary tract infection Urine culture growing out a gram-negative organism Recommend 2 weeks of antibiotics to which the organism is sensitive #2 lower urinary tract symptoms continue Flomax Recommend check a postvoid residual #3 nephrolithiasis These may be the source of his recurrent infections once his infections are treated he should follow-up in our office for further discussion on treatment of the stones No urologic intervention needed at this time. Reconsult as needed History of Present Illness Attending Physician: Noé Ledezma History of Present Illness Patient is a 69-year-old white male admitted to the hospital with altered mental status thought to be secondary to urinary tract infection. He says he is feeling better today. He tells me he said multiple urinary tract infections over the last year. His typical voiding habits are Nocturia 3-5 Stream okay Denies dysuria hematuria hesitancy Does not feel like he empties completely all the time Daytime frequency every 3-4 hours Occasional urgency Says his voiding symptoms are not that bothersome He is on Flomax twice a day Allergies Allergy/AdvReac Type Severity Reaction Status Date / Time No Known Drug Allergies Allergy Verified 07/19/19 16:44 Home Medications Home Medications Medication Instructions Recorded Confirmed Type omega-3 fatty acids 1,250 mg 1,250 mg PO QAM 08/12/18 07/19/19 History capsule albuterol sulfate 90 mcg/actuation 1 - 2 puffs INHALATION Q4H PRN gm 09/14/18 07/19/19 History aerosol inhaler cholecalciferol (vitamin D3) 25 1,000 units PO QDL tab 10/04/18 07/19/19 History mcg (1,000 unit) tablet cyanocobalamin (vitamin B-12) 100 100 mcg PO QAM tab 10/04/18 07/19/19 History mcg tablet metoprolol tartrate 25 mg tablet 25 mg PO BID #180 tab 11/22/18 07/19/19 Rx blood sugar diagnostic #100 ea 01/26/19 07/19/19 Rx lancets 33 gauge #100 ea 01/31/19 07/19/19 Rx pregabalin 150 mg capsule 150 mg PO TID #270 cap 02/17/19 07/19/19 Rx diltiazem HCl 180 mg 180 mg PO BID 30 Days #180 cap 04/05/19 07/19/19 Rx capsule,extended release 24 hr tramadol 50 mg tablet 50 mg PO Q8H PRN #180 tab 05/02/19 07/19/19 Rx tamsulosin 0.4 mg capsule 0.8 mg PO HS #180 cap 06/15/19 07/19/19 Rx pen needle, diabetic 32 gauge x #200 ea 06/21/19 07/19/19 Rx 5/32" diclofenac sodium 1 % topical gel 2 gm TOP QID PRN #100 gm 07/11/19 07/19/19 Rx fenofibrate nanocrystallized 48 mg PO QDL 07/19/19 07/19/19 History fluticasone propionate [Flovent 2 puffs INH DAILY PRN 07/19/19 07/19/19 History HFA] furosemide 40 mg PO QAM 07/19/19 07/19/19 History insulin aspart U-100 [Novolog 20 units SQ TIDM 07/19/19 07/19/19 History Flexpen U-100 Insulin] insulin degludec [Tresiba 40 units SUBCUT BID 07/19/19 07/19/19 History FlexTouch U-200] rosuvastatin [Crestor] 20 mg PO QAM 07/19/19 07/19/19 History warfarin 3 mg PO HS 07/19/19 07/19/19 History Patient History Medical History Abdominal aortic aneurysm dissection (Acute) Abnormal diffusion capacity determined by pulmonary function test (Acute) AF (atrial fibrillation) Atrial flutter (Resolved) Background diabetic retinopathy associated with type 2 diabetes mellitus (Acute) Bilateral renal cysts (Acute) BPH (benign prostatic hyperplasia) (Acute) Calculus of ureter (Acute 11/30/12) Chronic anticoagulation Chronic diastolic CHF (congestive heart failure) Chronic low back pain (Acute) Complex sleep apnea syndrome (Acute) Congestive heart failure (Resolved) Coronary atherosclerosis of [place] coronary vessel (Acute 11/30/12) Diabetes mellitus type 2, controlled (Acute) Diabetic peripheral neuropathy associated with type 2 diabetes mellitus (Acute) Diverticulosis (Acute) Dysesthesia (Resolved) Dyslipidemia (Resolved) Enlarged prostate without lower urinary tract symptoms (luts) (Resolved) Hypertension (Acute) Interstitial lung disease (Acute) Intervertebral disc disease (Acute) Joint pain, knee (Acute) Kidney stone on left side (Acute) Loss of protective sensation of skin of foot (Resolved) Lumbar back pain (Acute) Neuropathy in diabetes (Resolved 11/30/12) Obesity (Acute) Restrictive lung disease (Acute) Skin change (Acute) SOBOE (shortness of breath on exertion) (Acute) Stage III chronic kidney disease (Acute) 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 (Acute) Type 2 diabetes mellitus, with long-term current use of insulin (Acute) Vitamin B12 deficiency (Acute) Vitamin D deficiency (Acute) Surgical History History of mitral valve replacement History of shoulder surgery History of surgical removal of pilonidal cyst History of total left knee replacement Status post mitral valve annuloplasty (Acute) Family History Mother Diabetes Colon cancer Grandmother Multiple sclerosis Father Coronary heart disease Diabetes Myocardial infarction Grandfather Stroke Sister Diabetes Hypertension Brother Hypertension Diabetes Son Depression Denies family history of Ovarian cancer Prostate cancer Breast cancer Social History Preferred Language: Cyp[place] Communication Ability: Effective Visual Impairment: No Limitations Hearing Ability: Normal Secondary School Teacher Required: No Beliefs That Will Affect Care: None marital status: Current Living Situation: Spouse and Family current occupational status: retired current occupation: Former [employer] Feels Safe at Home: Yes Smoking Status: Never smoker Hx Alcohol Use: No Hx Substance Use: No Childhood Exposure to Second-Hand Smoke: No Dental Care, Regularly: No Physical Activity Frequency: Does not Exercise Seatbelt Use: always Sunscreen Use: No Review of Systems Review of Systems: Has chronic dyspnea on exertion Positive for fatigue Positive for chronic lower back pain No abdominal pain No nausea or vomiting, no diarrhea Physical Exam Physical Exam: Well-developed well-nourished white male in no acute distress Neurologically is alert and oriented x3 Abdomen is soft nontender there is no masses or hepatosplenomegaly there were no hernias Phallus shows normal male that lesion Meatus normal size position Both testes in the scrotal sac without mass or tenderness both epididymis are palpably normal His perineum are normal in appearance Rectal exam prostate 40 g benign in texture seminal vesicles unremarkable Results & Data Vital Signs (Past 12 Hours) Vital Signs Temp Pulse Pulse Resp BP Pulse Ox 07/20/19 12:06 36.8 C 80 18 98/64 L 92 07/20/19 08:04 36.7 C 79 18 129/77 96 07/20/19 07:34 71 07/20/19 04:00 37.8 C H 79 22 118/68 97 PG Care Time/CCT Total # of Minutes Spent Total Time Spent with Patient: Total time spent is greater than 50% in coordination of care (as documented) at patient's floor/unit and/or counseling patient: Coding Level of Care Code 00305 Initial Inpt Care Lvl 2 Diagnoses UTI (urinary tract infection) N39.0 Hematuria presence: without hematuria Urinary tract infection type: site unspecified (1) UTI (urinary tract infection) Hematuria presence: without hematuria Urinary tract infection type: site unspecified Qualified Code(s): N39.0 - Urinary tract infection, site not specified
[2019-07-20] MEDS: WARFARIN SOD 3 MG TAB PO SCH (17:37)
[2019-07-20] MEDS: TAMSULOSIN HCL 0.4 MG CAP PO SCH (20:41)
--- NOTE | 2019-07-20 22:20 | Hospitalist Progress Note ---
Date of Service July 20, 2019 Assessment & Plan (1) Acute pyelonephritis: This patient is a 69-year-old male with a history of A. fib on Coumadin, HTN, hyperlipidemia, chronic diastolic CHF, CALOS on CPAP, DM 2 with neuropathy, ILD, chronic AAA with dissection, BPH, embolic CVA, CKD 3, chronic back pain, OA, mitral valve repair, and recurrent UTI with nephrolithiasis, who presents with fevers and chills along with fatigue and confusion found to have a UTI with acute bilateral, left greater than right pyelonephritis and bilateral nephrolithiasis. -Admit to medical floor with telemetry -UA was collected after antibiotics were given in the ER so he may end up being negative on culture -Was given Zosyn in the ER-review of previous urine cultures shows consistently E. coli that is pansensitive except is resistant for quinolones-will change to Rocephin 2000 mg IV every 24 hours -awaiting cultures. -Given bilateral nephrolithiasis and multiple recurrent UTIs, complicated UTI, also with enlarged heterogenous prostate on imaging- -Appreciate input from Urology. -No IV fluids needed given history of diastolic heart failure and he does not seem dehydrated -Tylenol as needed for fever -He is not having any pain -Follow blood cultures (2) Acute metabolic encephalopathy: Likely secondary to fever and UTI/pyelonephritis CT of the head negative for acute disease, renal function just slightly worse than baseline -Supportive care -Treating pyelonephritis as above (3) Fever: With pyelonephritis on imaging and a history of recurrent UTIs UA pending at the time of admission but with presumed UTI and pyelonephritis Chest x-ray without pneumonia No other signs or symptoms of infection elsewhere -Treating with antibiotics as above Tylenol as needed for fever (4) Abdominal aortic aneurysm dissection: Chronic from's previous on imaging -Follows with vascular surgery as an outpatient -Continue on home Crestor, warfarin (5) BPH (benign prostatic hyperplasia): Heterogenous and enlarged prostate on imaging as above -Continue home tamsulosin -Appreciate input from urology. -Monitor for urinary retention (6) Diabetes mellitus type 2, controlled: On high doses of insulin as an outpatient -Check hemoglobin A1c in the morning -Continue home basal insulin but convert to Lantus from Tresiba continue 40 units twice daily -NovoLog sliding scale insulin -Accu-Cheks q. before meals and at bedtime -Diabetic diet (7) Hypertension: Controlled blood pressures here -Continue home metoprolol, diltiazem, furosemide (8) Stage III chronic kidney disease: Creatinine baseline ranges from 1.5-1.9 Creatinine here on admission is 2.0 may be slightly prerenal -Encourage p.o. intake --Avoid nephrotoxins -renally dose meds when appropriate -follow BMP (9) Vitamin D deficiency: Hold vitamin D given nephrolithiasis (10) AF (atrial fibrillation): With rate controlled atrial fibrillation here -Continue metoprolol, diltiazem -Continue warfarin and follow INR daily in the setting of antibiotic use -Admit to medical floor with telemetry (11) Chronic diastolic CHF (congestive heart failure): Is not volume overloaded -Continue home furosemide and we will not give IV fluids at this time (12) Obesity: Needs weight loss counseling (13) Interstitial lung disease: No acute issues at this time but does have chronic dyspnea on exertion 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 He has chronic dyspnea on exertion. He denies any fever or chills today. But did report subjective fevers overnight. Review of Systems Review of Systems: All systems reviewed & are unremarkable except as noted in HPI & below Physical Exam Physical Exam: Constitutional: WD/WN, vitals as above + obese Eyes: PERRL, conjunctivae normal, anicteric sclerae ENMT: external ear and nose normal, oropharynx normal Neck: trachea midline, no thyromegaly Respiratory: normal respiratory effort, lungs clear to auscultation Cardiovascular: RRR, no murmur, no edema Chest (Breasts): Chest: normal inspection of chest Gastrointestinal (Abdomen): normal bowel sounds, soft, nontender, no hepatosplenomegaly Musculoskeletal: Extremities: extremities normal to inspection; no cyanosis and no clubbing Skin: no rashes, warm and dry Neurologic: moves all extremities and awake; no focal motor deficits Psychiatric: A+Ox3, euthymic affect Lymphatic: no lymphedema Results & Data Results & Data ([facility]) Vital Signs (Past 12 Hours) Vital Signs Temp Pulse Resp BP Pulse Ox 07/20/19 20:02 37.0 C 71 18 114/71 93 07/20/19 12:06 36.8 C 80 18 98/64 L 92 PG Care Time/CCT Total # of Minutes Spent Total Time Spent with Patient: Total time spent is greater than 50% in coordination of care (as documented) at patient's floor/unit and/or counseling patient: Coding Level of Care Code 73879 Subseq Hosp Care Lvl 3 Diagnoses Acute pyelonephritis N10 Acute metabolic encephalopathy G93.41 Fever R50.9 Fever type: unspecified Abdominal aortic aneurysm dissection I71.02 BPH (benign prostatic hyperplasia) N40.1 Lower urinary tract symptom detail: unspecified Lower urinary tract symptom presence: symptoms present Diabetes mellitus type 2, controlled E11.9 Hypertension I10 Hypertension type: essential hypertension Stage III chronic kidney disease N18.3 Vitamin D deficiency E55.9 AF (atrial fibrillation) I48.91 Chronic diastolic CHF (congestive heart failure) I50.32 Obesity E66.9 Interstitial lung disease J84.9 Chronic low back pain M54.5; G89.29 Complex sleep apnea syndrome G47.31 Coronary atherosclerosis of [place] coronary vessel I25.10 Associated angina: without angina [place] vs. transplanted heart: [place] heart DVT prophylaxis Z29.9 Time Spent (min) 35 (1) BPH (benign prostatic hyperplasia) Lower urinary tract symptom detail: unspecified Lower urinary tract symptom presence: symptoms present Qualified Code(s): N40.1 - Benign prostatic hyperplasia with lower urinary tract symptoms (2) Fever Fever type: unspecified Qualified Code(s): R50.9 - Fever, unspecified (3) Coronary atherosclerosis of [place] coronary vessel Associated angina: without angina [place] vs. transplanted heart: [place] heart Qualified Code(s): I25.10 - Atherosclerotic heart disease of [place] coronary artery without angina pectoris (4) Hypertension Hypertension type: essential hypertension Qualified Code(s): I10 - Essential (primary) hypertension
[2019-07-20] MEDS: cefTRIAXone SODIUM 2,000 MG in DEXTROSE 5% 50 ML IV SCH (22:46)
[2019-07-21 07:49] LABS: Prothrombin Time 20.6 Seconds (9.0-12.0)
[2019-07-21] MEDS: INSULIN ASPART 100 UNITS/ML 3 ML PEN SC SCH ×3 (08:25→17:27)
[2019-07-21] MEDS: INSULIN GLARGINE 100 UNIT/ML VIAL SQ SCH (08:26)
[2019-07-21] MEDS: FLUTICASONE FUROATE 100MCG 14 PUFFS/INHALER INH SCH (08:26)
[2019-07-21] MEDS: ROSUVASTATIN CALCIUM 20 MG TAB PO SCH (08:28)
[2019-07-21] MEDS: METOPROLOL TARTRATE 25 MG TAB PO SCH (08:28)
[2019-07-21] MEDS: OMEGA-3 (PURIFIED FISH OIL) 1 GM CAP PO SCH (08:28)
[2019-07-21] MEDS: FUROSEMIDE 40 MG TAB PO SCH (08:28)
[2019-07-21] MEDS: dilTIAZem HCL 180 MG CAPCR PO SCH (08:28)
[2019-07-21] MEDS: CYANOCOBALAMIN (VITAMIN B-12) 100 MCG TABLET PO SCH (08:28)
[2019-07-21] MEDS: PREGABALIN 150 MG CAP PO SCH (08:29)
[2019-07-21] MEDS: POLYETHYLENE (MIRALAX) 17 GM PACK PO SCH (08:29)
[2019-07-21] MEDS: FENOFIBRATE NANOCRYSTALLIZED 48 MG TABLET PO SCH (12:43)
[2019-07-21 15:16] LABS: Hematocrit (blood only) 37.5 % (42-52); Hemoglobin 12.6 g/dL (14.0-18.0); Mean Corpuscular Hemoglobin 29.7 pg (25-34); Mean Corpuscular Hgb Conc 33.6 g/dL (32-36); Mean Corpuscular Volume 88.4 fL (80-100); Mean Platelet Volume 9.9 fL (7.4-10.4); Platelet Count 213 K/uL (130-400); RDW Coefficient of Variation 15.1 % (11.5-14.5); RDW Standard Deviation 48.6 fL (36.4-46.3); Red Blood Count 4.24 M/uL (4.7-6.1); White Blood Count 10.59 K/uL (4.8-10.8)
[2019-07-21 15:32] LABS: Calcium 9.7 mg/dl (8.5-10.1); Creatinine Clr Calc Pharmacy 44.4 ml/min; Est GFR (African American) 45.7; Est GFR (Non-African American) 39.4; Potassium 3.8 mmol/L (3.5-5.1)
[2019-07-21] MEDS: WARFARIN SOD 3 MG TAB PO SCH (16:28)
--- NOTE | 2019-07-27 23:37 | Discharge Summary ---
Date of Service July 21, 2019 Admission HPI Per Admitting Provider This patient is a 69-year-old male with a history of A. fib on Coumadin, HTN, hyperlipidemia, chronic diastolic CHF, CALOS on CPAP, DM 2 with neuropathy, ILD, chronic AAA with dissection, BPH, embolic CVA, CKD 3, chronic back pain, OA, mitral valve repair, and recurrent UTI with nephrolithiasis, who presents with fevers and chills along with fatigue confusion today from home. He woke up this morning with the chills and his noted that he seemed confused and was concerned that he had another UTI. He denies any back or flank pain, no abdominal pain. He does have to take MiraLAX daily in order to have a daily b owel movement. He denies any dysuria or hematuria, he does have chronic lower urinary tract symptoms and is on tamsulosin. He has never seen a urologist but has had 10 UTIs in the last 9 months as per his . Review of the microbiology cultures reveals that all but 1 of his UTIs have been the same E. coli that is resistant to fluoroquinolones. Principal Diagnosis acute pyelonephritis Discharge Exam Constitutional: WD/WN, vitals as above + obese Eyes: PERRL, conjunctivae normal, anicteric sclerae ENMT: external ear and nose normal, oropharynx normal Neck: trachea midline, no thyromegaly Respiratory: normal respiratory effort, lungs clear to auscultation Cardiovascular: RRR, no murmur, no edema Chest (Breasts): Chest: normal inspection of chest Gastrointestinal (Abdomen): normal bowel sounds, soft, nontender, no hepatosplenomegaly Musculoskeletal: Extremities: extremities normal to inspection; no cyanosis and no clubbing Skin: no rashes, warm and dry Neurologic: moves all extremities and awake; no focal motor deficits Psychiatric: A+Ox3, euthymic affect Lymphatic: no lymphedema Discharge Data Allergies Allergy/AdvReac Type Severity Reaction Status Date / Time No Known Drug Allergies Allergy Verified 07/19/19 16:44 Consultations 07/19/19 16:21 ED Decision to Admit Stat 07/19/19 20:41 Consult Urology Routine Ordered Studies 07/19/19 14:50 CT abd pelvis wo con Stat CT head/brain wo con Stat Hospital Course (1) Acute pyelonephritis: This patient is a 69-year-old male with a history of A. fib on Coumadin, HTN, hyperlipidemia, chronic diastolic CHF, CALOS on CPAP, DM 2 with neuropathy, ILD, chronic AAA with dissection, BPH, embolic CVA, CKD 3, chronic back pain, OA, mitral valve repair, and recurrent UTI with nephrolithiasis, who presents with fevers and chills along with fatigue and confusion found to have a UTI with acute bilateral, left greater than right pyelonephritis and bilateral nephrolithiasis. -Admit to medical floor with telemetry -UA was collected after antibiotics were given in the ER so he may end up being negative on culture -Was given Zosyn in the ER-review of previous urine cultures shows consistently E. coli that is pansensitive except is resistant for quinolones-will change to Rocephin 2000 mg IV every 24 hours -cultures showed e. coli sensitive to everyting except FLUROQUINOLONES. will discharge patient on cefdinir. -Given bilateral nephrolithiasis and multiple recurrent UTIs, complicated UTI, also with enlarged heterogenous prostate on imaging- -Appreciate input from Urology. (2) Acute metabolic encephalopathy: Likely secondary to fever and UTI/pyelonephritis CT of the head negative for acute disease, renal function just slightly worse than baseline -Supportive care -Treating pyelonephritis as above (3) Fever: With pyelonephritis on imaging and a history of recurrent UTIs UA pending at the time of admission but with presumed UTI and pyelonephritis Chest x-ray without pneumonia No other signs or symptoms of infection elsewhere -Treating with antibiotics as above Tylenol as needed for fever (4) Abdominal aortic aneurysm dissection: Chronic from's previous on imaging -Follows with vascular surgery as an outpatient -Continue on home Crestor, warfarin (5) BPH (benign prostatic hyperplasia): Heterogenous and enlarged prostate on imaging as above -Continue home tamsulosin -Appreciate input from urology. -Monitor for urinary retention (6) Diabetes mellitus type 2, controlled: On high doses of insulin as an outpatient -Check hemoglobin A1c in the morning -Continue home basal insulin but convert to Lantus from Tresiba continue 40 units twice daily -NovoLog sliding scale insulin -Accu-Cheks q. before meals and at bedtime -Diabetic diet (7) Hypertension: Controlled blood pressures here -Continue home metoprolol, diltiazem, furosemide (8) Stage III chronic kidney disease: Creatinine baseline ranges from 1.5-1.9 Creatinine here on admission is 2.0 may be slightly prerenal -Encourage p.o. intake --Avoid nephrotoxins -renally dose meds when appropriate -follow BMP (9) Vitamin D deficiency: Hold vitamin D given nephrolithiasis (10) AF (atrial fibrillation): With rate controlled atrial fibrillation here -Continue metoprolol, diltiazem -Continue warfarin and follow INR daily in the setting of antibiotic use -Admit to medical floor with telemetry (11) Chronic diastolic CHF (congestive heart failure): Is not volume overloaded -Continue home furosemide and we will not give IV fluids at this time (12) Obesity: Needs weight loss counseling (13) Interstitial lung disease: No acute issues at this time but does have chronic dyspnea on 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 -Follow-up with PCP as an outpatient or pulmonology for PFTs (14) Chronic low back pain: Continue tramadol as needed as per home dosing (15) Complex sleep apnea syndrome: Order CPAP for here-he is unsure of settings-will start at 8 cm H2O (16) Coronary atherosclerosis of [place] coronary vessel: -Continue statin, warfarin -Continue metoprolol (17) DVT prophylaxis: Coumadin Total Time Total Time Spent Total Time Spent (In Minutes): 32 Total Time Includes: Examination of the Patient, Discharge Planning and Medication Reconciliation Discharge Plan Discharge Items Patient Disposition: Home - Self-Care Reason For Visit: UTI,PYELONEPHRITIS Discharge Diagnosis: pyelonephritis Condition on Discharge: Good Activity: Resume your previous activity Non-emergency contact: Primary Care Provider Call non-emergency contact if: you have any medication questions Follow-up/Referrals: Alexei Hercules MD [Physician] - (You need to follow up with Dr Hercules. Please call to schedule an appointments.) Marco Velasco MD [Primary Care Provider] - 07/28/19 9:30 am Diet: Carb Consistent or DM2 and Heart Healthy Addtl Attending Provider Instructions: You have been hospitalized for an acute medical problem. During your stay at [facility], we have made an effort to correct the problem that brought you to the hospital while keeping you as comfortable as possible. Medications were used to bring your condition under control and your discharge instructions will include directions for any medications you should take after leaving the hospital. Please make sure you see your Primary Care Provider as part of your follow up plan. follow-up with Urology for further discussion on treatment of the stones Pending Studies at Discharge: No Stand-Alone Forms: [facility] Smoking Cessation Medications and DC Order Prescriptions: New cefdinir 300 mg capsule 300 mg PO BID 10 Days Qty: 20 RF: 0 Continued metoprolol tartrate 25 mg tablet 25 mg PO BID Qty: 180 RF: 3 (DME) OneTouch Ultra Blue Test Strip strip See Rx Instructions .ROUTE .MEDSUPPLY Qty: 100 RF: 5 (DME) lancets [OneTouch Delica Lancets] 33 gauge misc See Rx Instructions .ROUTE .MEDSUPPLY Qty: 100 RF: 3 pregabalin [Lyrica] 150 mg capsule 150 mg PO TID Qty: 270 RF: 3 diltiazem HCl 180 mg capsule,extended release 24hr 180 mg PO BID 30 Days Qty: 180 RF: 1 tramadol 50 mg tablet 50 mg PO Q8H PRN (Reason: pain) Qty: 180 RF: 1 tamsulosin 0.4 mg capsule 0.8 mg PO HS Qty: 180 RF: 3 (DME) pen needle, diabetic [BD Reyna 2nd Gen Pen Needle] 32 gauge x 5/32" needle See Rx Instructions .ROUTE .MEDSUPPLY Qty: 200 RF: 3 diclofenac sodium 1 % gel 2 gm TOP QID PRN (Reason: knee pain) Qty: 100 RF: 2 albuterol sulfate 90 mcg/actuation HFA aerosol inhaler 1 - 2 puffs inhalation Q4H PRN (Reason: shortness of breath) RF: 0 omega-3 fatty acids 1,250 mg capsule 1,250 mg PO QAM RF: 0 cholecalciferol (vitamin D3) 1,000 unit (25 mcg) tablet 1,000 units PO QDL RF: 0 cyanocobalamin (vitamin B-12) 100 mcg tablet 100 mcg PO QAM RF: 0 furosemide 40 mg tablet 40 mg PO QAM RF: 0 warfarin 3 mg tablet 3 mg PO HS RF: 0 Flovent HFA 110 mcg/actuation HFA aerosol inhaler 2 puffs INH DAILY PRN (Reason: Shortness Of Breath) RF: 0 insulin aspart U-100 [Novolog Flexpen U-100 Insulin] 100 unit/mL (3 mL) insulin pen 20 units SQ TIDM RF: 0 rosuvastatin [Crestor] 20 mg tablet 20 mg PO QAM RF: 0 fenofibrate nanocrystallized 48 mg tablet 48 mg PO QDL RF: 0 Tresiba FlexTouch U-200 200 unit/mL (3 mL) insulin pen 40 units subcut BID RF: 0 Discharge Orders: Discharge Order (Routine); Ordered 07/21/19 Ordered By: Noé Ledezma Admission Data Admit Date/Time: 07/19/19 17:28 Attending Provider: Noé Ledezma Admit Provider: Jenae Manrique Primary Care Provider: Marco Velasco Other Providers: Alexei Hercules Other Interventions: Discharge Summary Assessment (RN) Last Done: 07/21/19 17:07 DC Date/Time DO NOT enter until pt leaves facility: 07/21/19 19:15 Coding Level of Care Code D/C Day Management >30 mins Diagnoses Acute pyelonephritis N10 Acute metabolic encephalopathy G93.41 Fever R50.9 Fever type: unspecified Abdominal aortic aneurysm dissection I71.02 BPH (benign prostatic hyperplasia) N40.1 Lower urinary tract symptom presence: symptoms present Lower urinary tract symptom detail: unspecified Diabetes mellitus type 2, controlled E11.9 Hypertension I10 Hypertension type: essential hypertension Stage III chronic kidney disease N18.3 Vitamin D deficiency E55.9 AF (atrial fibrillation) I48.91 Chronic diastolic CHF (congestive heart failure) I50.32 Obesity E66.9 Interstitial lung disease J84.9 Chronic low back pain M54.5; G89.29 Complex sleep apnea syndrome G47.31 Coronary atherosclerosis of [place] coronary vessel I25.10 [place] vs. transplanted heart: [place] heart Associated angina: without angina DVT prophylaxis Z29.9 Time Spent (min) 32
== END 2019-07-21 19:15 | disposition home or self-care (01) | DRG 689 ==
LOC: ED 14:11 → 2W 17:28 → SUATTDRO 17:28 → 2W 19:13

== ENCOUNTER 2021-05-03 10:28 | Observation (INO) ==
--- NOTE | 2021-05-03 10:55 | XRay Report ---
XR chest 1V portable CLINICAL HISTORY: Shortness of breath. COMPARISON STUDY: Chest radiograph February 04, 2021. FINDINGS: No pneumothorax or pleural effusion is present. Cardiomegaly is unchanged. Prosthetic gaston l valve is in place. No evidence for pulmonary edema. Right lower lung opacity is unchanged and favor s scarring. No consolidation to suggest pneumonia. No change in appearance of the chest. IMPRESSION: No acute cardiopulmonary findings. No change in appearance of the chest. ACT 112: Negative or not required by law. Electronically signed by: Mc Concepcion M.D. 05/03/2021 10:54 AM
[2021-05-03 11:49] LABS: Hematocrit (blood only) 42.3 % (42-52); Hemoglobin 14.6 g/dL (14.0-18.0); Mean Corpuscular Hemoglobin 31.2 pg (25-34); Mean Corpuscular Hgb Conc 34.5 g/dL (32-36); Mean Corpuscular Volume 90.4 fL (80-100); Mean Platelet Volume 9.9 fL (7.4-10.4); Platelet Count 231 K/uL (130-400); RDW Coefficient of Variation 15.4 % (11.5-14.5); RDW Standard Deviation 51.1 fL (36.4-46.3); Red Blood Count 4.68 M/uL (4.7-6.1); White Blood Count 16.01 K/uL (4.8-10.8)
[2021-05-03 11:59] LABS: INR 1.6 (0.9-1.1); Partial Thromboplastin Ratio 1.3; Partial Thromboplastin Time 36.4 Seconds (21.0-31.0); Prothrombin Time 16.8 Seconds (9.0-12.0)
[2021-05-03 12:12] LABS: Alanine Aminotransferase 13 U/L (7-52); Albumin Globulin Ratio 1.3 (0.9-2); Albumin Level 4.3 gm/dl (3.4-5.0); Alkaline Phosphatase 56 U/L (34-104); Anion Gap 11 (3-11); Aspartate Aminotransferase 17 U/L (13-39); BUN Creatinine Ratio 14.5 (10-20); Bilirubin,Total 1.4 mg/dl (0.2-1.0); Blood Urea Nitrogen 31 mg/dl (6-23); Calcium 9.7 mg/dl (8.5-10.1); Carbon Dioxide 26 mmol/L (21-32); Chloride 100 mmol/L (98-107); Creatinine Clr Calc Pharmacy 36.2 ml/min; Est GFR (African American) 34.8 ml/min; Globulin 3.4 gm/dl (2.5-4.0); Glucose 136 mg/dl (70-99(Fasting)); Magnesium 1.8 mg/dl (1.7-2.4); Sodium 137 mmol/L (136-145); Total Protein 7.7 gm/dl (6.0-8.3)
[2021-05-03 12:13] LABS: Troponin I < 0.03 ng/ml (0-0.04)
[2021-05-03 12:24] LABS: Basophils # (auto) 0.02 K/uL (0-0.2); Basophils % (auto) 0.1 %; Eosinophils # (auto) 0.01 K/uL (0-0.5); Eosinophils % (auto) 0.1 %; Immature Granulocytes # (auto) 0.06 K/uL (0.00-0.02); Immature Granulocytes % (auto) 0.4 %; Lymphocytes # (auto) 1.11 K/uL (1.2-3.4); Lymphocytes % (auto) 6.9 %; Monocytes # (auto) 1.93 K/uL (0.11-0.59); Monocytes % (auto) 12.1 %; Neutrophils # (auto) 12.88 K/uL (1.4-6.5); Neutrophils % (auto) 80.4 %
--- NOTE | 2021-05-03 12:33 | Electrocardiogram Report ---
Test Reason : Blood Pressure : / mmHG Vent. Rate : 089 BPM Atrial Rate : 388 BPM P-R Int : 000 ms QRS Dur : 118 ms QT Int : 370 ms P-R-T Axes : 000 145 041 degrees QTc Int : 450 ms Poor data quality, interpretation may be adversely affected Atrial fibrillation with aberrant conduction Possible Inferior infarct , age undetermined Abnormal ECG When compared with ECG of 04-FEB-2021 11:32, Nonspecific T wave abnormality now evident in Lateral leads Confirmed by Elpidio Madrigal ([id number]) on 05/03/2021 12:33:11 PM Referred By: Confirmed By:Catarino Madrigal
[2021-05-03 13:16] LABS: Appearance Urine Turbid (Clear); Bacteria Urine Automated 4+ (Negative); Bilirubin Urine Negative (Negative); Blood Urine 2+ (Negative); Color Urine Dark Yellow; Epithelial Cell Urine Auto 20-30 /lpf (0-5); Glucose Urine UA Negative (Negative); Ketones Urine Negative (Negative); Leukocyte Esterase Urine 3+ (Negative); Nitrite Urine Negative (Negative); Protein Urine 2+ (Negative); Specific Gravity Urine 1.017 (1.000-1.030); Urobilinogen Urine Negative (Negative); WBC Urine Automated >30 /hpf (0-5); pH Urine 5.5 (4.5-7.5)
[2021-05-03] MEDS ORDERED: CEFEPIME 2,000 MG/20 ML VIAL IV STA (13:47)
--- NOTE | 2021-05-03 15:01 | History & Physical Report ---
Date of Service May 03, 2021 Assessment & Plan (1) Interstitial lung disease: Plan: I believe with an acute exacerbation. He feels he is ~50% of his usual exercise capacity. No fevers/chills or cough to indicate pneumonia. - Will get procal, BNP, and vbg - CT chest - Pulmonary consult -> Will see tomorrow. Start methylprednisolone 40 mg IV BID per recommendation. - Supplemental O2 to maintain SpO2 > 90% (2) Hypoxemia: Plan: Normally on 2L with his AVS machine at night, but none during the day. In ED, required 2L NC to maintain SpO2 > 90%. - As above (3) Stage 3b chronic kidney disease: Plan: Baseline Cr 1.5 - 1.9. Cr is 2.15 on admission. Not officially acute kidney injury. - Hold Lasix x 1 day - Small bolus of 250 mL - Monitor Cr (4) Urinary tract infection: Plan: UA suggestive of UTI. Patient's symptoms are questionable. No dysuria or suprapubic pain. He reports "smelly" urine for at least a week or longer. He cannot pinpoint a change in his urinary urgency. However, given elevated WBC, will treat. - Ceftriaxone - Follow culture (5) AF (atrial fibrillation): Plan: Permanent. HR was 70-80 in the ED. - Continue warfarin - Monitor INR -> 1.6 on admission - Continue home beta-gilberto and calcium channel gilberto (6) Coronary atherosclerosis of [place] coronary vessel: Plan: Per cardiology note, "small apical LAD disease in 09/2018 and otherwise nonobstructive disease." Had perfusion scan on 04/04/2021 as pre-op for surgery which showed no reversible disease. Do not feel his present shortness of breath and dyspnea on exertion are anginal equivalents, but rather his lung disease. - Continue home fenofibrate, beta-gilberto, ranolazine, and statin (7) Chronic diastolic CHF (congestive heart failure): Plan: Presently appears euvolemic. - Continue home Lasix starting on 05/05 to give him a 1-day holiday for mildly elevated Cr (8) BPH with obstruction/lower urinary tract symptoms: Plan: Reports chronic LUTS that have been stable for years. - Continue home tamsulosin (9) Diabetes mellitus type 2, controlled: Plan: A1c was 6.7% this month. - Reduce home long-acting insulin from 40 units BID to 20 units BID given reduction in meal size in hospital. - Sliding scale insulin based on high insulin resistance - Glycemic pharmacy consulted - Continue home pregabalin (renally-reduce dose to 50 mg TID though from his home of 150 mg TID) (10) Complex sleep apnea syndrome: Plan: Has an auto-BiPap device at home. It appears settings of 11/5/2L NC would approximate his device per the BiPap report from 09/2020. He is very compliant and uses it every night. - Use hospital device per patient preference. (11) History of mitral valve replacement: Plan: Mitral valve repair in 2007 for severe MR. - No inpatient needs (12) DVT prophylaxis: Plan: Warfarin for his afib History of Present Illness Primary Care Provider: Marco Velasco MD 71yo M w/ hx of ILD, mitral valve replacement, atrial fibrillation, and DM who presents with increased shortness of breath and dyspnea on exertion x 3 days. The patient has a baseline fairly low quality of health due to his medical issues. At baseline, he reports he can move around his house without too much shortness of breath. He gives examples of moving from the bathroom and back to bed and getting to the kitchen to get lunch. He reports he doesn't get out much and generally isn't very active. However, over the last 3 days, he has gotten consistently worse to the point where even moving around the house causes significant shortness of breath. As an example, he notes that when he gets up in the mornings, he can barely make it to the commode before getting very winded and having to rest. He feels he is about 50% exercise capacity compared to 1 week ago. He denies any cough or mucus production. No fevers/chills, no nausea/vomiting, no abdominal pain, no chest pain, no palpitations. He reports that he is using his Arnuity inhalers "most of the time," but doesn't feel like it does anything for him, so he just kind of takes it whenever he thinks about it during the day. He does not use his albuterol inhaler because he doesn't cough. Allergies Allergy/AdvReac Type Severity Reaction Status Date / Time dulaglutide [From [facility]] AdvReac Intermediate Diarrhea , Verified 05/03/21 12:09 nausea Home Medications Medication Instructions Recorded Confirmed Type omega-3 fatty acids 1,250 mg 1,250 mg PO QAM 08/12/18 05/03/21 History capsule cholecalciferol (vitamin D3) 25 1,000 units PO QDL tab 10/04/18 05/03/21 History mcg (1,000 unit) tablet albuterol sulfate 90 mcg/actuation 1 - 2 puff INHALATION Q4H PRN #18 g 12/27/19 05/03/21 Rx aerosol inhaler cyanocobalamin (vitamin B-12) 100 100 mcg PO 3XWK tab 12/27/19 05/03/21 History mcg tablet multivitamin (Daily Multi-Vitamin) 1 tab PO QAM 03/15/20 05/03/21 History diltiazem HCl 180 mg 180 mg PO BID 90 Days #180 cap 09/23/20 05/03/21 Rx capsule,extended release 24 hr furosemide 40 mg tablet 40 mg PO QAM #90 tab 10/01/20 05/03/21 Rx insulin aspart U-100 100 unit/mL 20 unit SQ TIDM #15 ml 10/10/20 05/03/21 Rx (3 mL) subcutaneous pen (Novolog Flexpen U-100 Insulin aspart) fenofibrate nanocrystallized 48 mg 48 mg PO QDL #90 tab 11/14/20 05/03/21 Rx tablet metoprolol tartrate 25 mg tablet 25 mg PO BID #180 tab 11/14/20 05/03/21 Rx warfarin 3 mg tablet 3 mg PO HS #90 tab 12/23/20 05/03/21 Rx tamsulosin 0.4 mg capsule 0.4 mg PO QAM 01/30/21 05/03/21 History ranolazine 500 mg tablet,extended 500 mg PO BID #60 tab 03/06/21 05/03/21 Rx release,12 hr (Ranexa) rosuvastatin 20 mg tablet (Crestor) 20 mg PO QAM #90 tab 03/21/21 05/03/21 Rx pregabalin 150 mg capsule (Lyrica) 150 mg PO TID #270 cap 03/26/21 05/03/21 Rx insulin degludec 200 unit/mL (3 40 unit SUBCUT BID #9 ml 03/31/21 05/03/21 Rx mL) subcutaneous pen (Tresiba FlexTouch U-200 insulin) tramadol 50 mg tablet 50 mg PO Q8H PRN #180 tab 04/15/21 05/03/21 Rx fluticasone furoate 50 1 inh INH QAM 05/03/21 05/03/21 History mcg/actuation blister powder for inhalation (Arnuity Ellipta) Past Med/Surg History Medical History (Updated 05/03/21 @ 14:53 by Donald Diane MD) Abdominal aortic aneurysm dissection BEING MONITORED YEARLY (NO CHANGE IN SIZE)>FOLLOWED BY DR. PAREDES Arthritis Atrial fibrillation initial RVR, persistent, on rate control and anticoagulation per Dr. Paredes 05/28/2020 note Bilateral renal cysts BPH with obstruction/lower urinary tract symptoms CKD stage 3 due to type 2 diabetes mellitus follows with [facility] Complex sleep apnea syndrome ASV machine with 2L supplemental oxygen nightly-compliant, follows with [facility] pulmonology Congestive heart failure Coronary atherosclerosis of [place] coronary vessel 10/10/2018 Cardiac cath summary: 1. Severe 80-90% apical LAD disease 2. Moderate non-obstructive proximal-mid LAD (FFR 0.83). 3. Mild-moderate multivessel disease - 30-40% proximal OM1, mid circumflex, mid RCA Diabetic nephropathy associated with type 2 diabetes mellitus Diabetic polyneuropathy lower extremities bilat, per neuro 09/2018 consult note Dyslipidemia Gastroparesis History of anemia 01/2021 pre-op H&H: 14.4/43.7 History of blood transfusion during mitral valve repair per pt History of MRSA infection ~ 5 yrs ago Hypertension controlled, stable per pt Interstitial lung disease monitoring per [facility] pulmonology Lumbar back pain Pulmonary hypertension Moderate, "suspected secondary to elevated end-diastolic pressure, obesity, restrictive lung disease, hypoxemia and sleep disordered breathing: Would not recommend consideration for any pulmonary vasodilators at this point" follows with [facility] pulmonology Restrictive lung disease Stroke 2018, embolic, 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 CVA post cardiac catheterization, mild residual aphasia Surgical History (Updated 05/03/21 @ 14:55 by Donald Diane MD) History of cardiac cath LAST CATH> 3 YEAR AGO (NO STENTS) History of colonoscopy History of cystoscopy Left Ureteronephroscopy 08/24/2019: Grade 3 view, MAC#3.0, ETT#8.0. No issues per anesthesia postop progress note. History of mitral valve replacement 2007, [facility] History of mitral valve replacement History of shoulder surgery RT/LEFT History of surgical removal of pilonidal cyst History of tooth extraction History of total left knee replacement Family History Mother Colon cancer Diabetes Grandmother Multiple sclerosis Father Diabetes Coronary heart disease Myocardial infarction Grandfather Stroke Sister Diabetes Hypertension Brother Diabetes Hypertension Son Depression Hypertension Other No family history of adverse response to anesthesia Denies family history of Ovarian cancer Prostate cancer Breast cancer Social History Smoking Status: Never smoker Second Hand Exposure: No; Hx Alcohol Use: No Hx Substance Use: No Preferred Language: [place] Verdean Communication Ability: Effective Visual Impairment: No Limitations Hearing Ability: Normal Culled Fruit Packer Required: No Beliefs That Will Affect Care: None marital status: Current Living Situation: Spouse current occupational status: retired 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 occupation: 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 [employer] Feels Safe at Home: Yes Childhood Exposure to Second-Hand Smoke: No Dental Care, Regularly: No Physical Activity Frequency: Does not Exercise Seatbelt Use: always Sunscreen Use: No Assistive Devices: Glasses Review of Systems Review of Systems: All systems reviewed & are unremarkable except as noted in HPI & below Physical Exam Constitutional: WD/WN, vitals as above + obese Eyes: EOM intact bilaterally; no conjunctival abnormality ENMT: external ear and nose normal, oropharynx normal Neck: trachea midline, no thyromegaly normal visual inspection Respiratory: + labored breathing; no respiratory distress, no cough and not tachypneic Auscultation: + crackles (Lower bases); no wheezes Cardiovascular: RRR, no murmur, no edema Gastrointestinal (Abdomen): Inspection/Auscultation: abdomen normal to inspection; abdomen not distended Musculoskeletal: no cyanosis or clubbing, extremities motor strength 5/5 Skin: no rashes, warm and dry Neurologic: moves all extremities and awake Psychiatric: Orientation: alert, oriented to person and cooperative Results & Data Results & Data ([facility]) Vital Signs (Past 12 Hours) Vital Signs Temp Pulse Pulse Resp BP BP Pulse Ox 05/03/21 13:00 86 20 125/64 95 05/03/21 11:30 88 24 116/61 90 05/03/21 11:25 85 L 05/03/21 10:29 36.5 C 70 22 100/66 94 Code Status & VTE Plan VTE Prophylaxis Plan VTE Prophylaxis will be ordered: Yes PG Care Time/CCT Total # of Minutes Spent Total Time Spent with Patient: Total time spent is greater than 50% in coordination of care (as documented) at patient's floor/unit and/or counseling patient: Coding Level of Care Code 83700 Initial Inpt Care Lvl 3 Diagnoses Interstitial lung disease J84.9 AF (atrial fibrillation) I48.91 Chronic diastolic CHF (congestive heart failure) I50.32 Stage 3b chronic kidney disease N18.32 Diabetes mellitus type 2, controlled E11.9 Urinary tract infection N39.0 DVT prophylaxis Z29.9 Complex sleep apnea syndrome G47.31 Hypoxemia R09.02 History of mitral valve replacement Z95.2 BPH with obstruction/lower urinary tract symptoms N40.1; N13.8 Coronary atherosclerosis of [place] coronary vessel I25.10 [place] vs. transplanted heart: marshall heart Associated angina: without angina (1) Coronary atherosclerosis of [place] coronary vessel [place] vs. transplanted heart: [place]all heart Associated angina: without angina Qualified Code(s): I25.10 - Atherosclerotic heart disease of [place] coronary artery without angina pectoris
[2021-05-03 15:30] LABS: Base Excess VBG 3.6 mEq/L; HCO3 VBG 29 mmol/L; PCO2 VBG 45 mmHg (38-50); PO2 VBG 33 mmHg; pH VBG 7.42 (7.36-7.41)
--- NOTE | 2021-05-03 15:30 | CT Scan Report ---
CT OF THE CHEST WITHOUT IV CONTRAST CLINICAL HISTORY: ILD exacerbation COMPARISON STUDY: Chest CT March 12, 2020. Chest radiograph performed earlier today. CT DOSE: 840.09 mGy.cm TECHNIQUE: Axial images of the chest were obtained without IV contrast. Images were reviewed in the axial, sagittal, and coronal planes. IV contrast was not administered for this examination. Automat ed exposure control was utilized for the study. A dose lowering technique was utilized adhering to t he principles of ALARA. FINDINGS: No enlarged axillary, mediastinal or hilar lymph nodes are present. Cardiomegaly is unchan ged. There is a prosthetic mitral valve. No pericardial effusion is present. Mild herniation of the l [place] between the right third and fourth ribs is unchanged. There is no pneumothorax or pleural effusio n. Central airways are patent. Mild bronchiectasis is most evident within the right middle and right lower lobe. This is similar to prior exam. Subpleural reticulation and groundglass opacities are agai n noted. These were present on prior exam. Subpleural groundglass opacity reticulation with bronchiec tasis within the right middle lobe is unchanged. This may reflect scarring or interstitial lung disea se. No superimposed consolidation is present. No suspicious pulmonary nodules are present. Visualized portions of the upper abdomen are unremarkable on this unenhanced exam. IMPRESSION: 1. No acute process within the chest. 2. No change in subpleural groundglass opacities with reticulation since prior exam. This favors inte rstitial lung disease with a NSIP pattern. No superimposed consolidation. 3. Cardiomegaly. ACT 112: Negative or not required by law. Electronically signed by: Mc Concepcion M.D. 05/03/2021 3:28 PM
[2021-05-03 15:32] LABS: Oxygen Saturation VBG < 60.0 %
[2021-05-03] MEDS ORDERED: traMADol HCL 50 MG TABLET PO PRN (16:58)
[2021-05-03] MEDS ORDERED: GLUCAGON FOR INJ 1 MG VIAL SQ PRN (16:58)
[2021-05-03] MEDS ORDERED: GLUCOSE 40% GEL 15 GM TUBE PO PRN (16:58)
[2021-05-03] MEDS ORDERED: cefTRIAXone SODIUM 1,000 MG in DEXTROSE 5% 50 ML IV SCH (16:58)
[2021-05-03] MEDS ORDERED: CARBOHYDRATES FOR HYPOGLYCEMIA PO PRN (16:58)
[2021-05-03] MEDS ORDERED: PHARMACY GLYCEMIC MGMT CONSULT PRN (16:58)
[2021-05-03] MEDS ORDERED: GLUCOSE 10 TABS/TUBE PO PRN (16:58)
[2021-05-03] MEDS ORDERED: ACETAMINOPHEN 325 MG TAB PO PRN (16:58)
[2021-05-03] MEDS ORDERED: DEXTROSE 50% 50 ML SYRINGE IV PRN (16:58)
[2021-05-03] MEDS ORDERED: ONDANSETRON INJ 2 MG/ML 2 ML VIAL IV PRN (16:58)
[2021-05-03] MEDS: INSULIN ASPART PER UNIT SC SCH ×2 (17:37→20:40)
--- NOTE | 2021-05-03 17:41 | Pharmacy Report ---
Pharmacy Glycemic Short Note 2 - Date of Service May 03, 2021 - Glycemic Short BSG Results (Last 24 hours): 05/03/21 05/03/21 11:30 17:02 Glucose 136 H POC Glucose 90 OUTPATIENT ANTIDIABETIC REGIMEN: * Tresiba 40 units SC BID * Novolog 20 units SC TIDM * HbA1c 6.7% on 04/30/21 ASSESSMENT: * 71 yo M with T2DM well controlled on above regimen admitted for ILD exacerbation and possible UTI and scheduled to start steroids this evening * Will transition to formulary long-acting Lantus. Home dose OK tonight as steroids are starting, may also require increase * Novolog at weight-based moderate to severe stress estimate for now as steroids have not yet started. Will likely require tightening tomorrow PLAN FOR INPATIENT GLYCEMIC CONTROL: * Basal insulin * Lantus 30-50 units SQ BID, depending on BSG * Bolus insulin * NovoLog per scale ACHS or Q6hrs while NPO * Goal Range: Low 110 mg/dL - High 140 mg/dL * Correction Factor: 15 mg/dL/unit * Nutritional / Prandial insulin per carb ratio of 1 unit per 6 grams CHO consumed
[2021-05-03] MEDS: ALBUT/IPRATROP 3MG/0.5MG NEB 3 ML VIAL NEB SCH ×2 (18:00→19:29)
[2021-05-03] MEDS ORDERED: WARFARIN SOD 3 MG TAB PO SCH (19:00)
[2021-05-03] MEDS: cefTRIAXone SODIUM 2,000 MG in DEXTROSE 5% 50 ML IV SCH (19:04)
--- NOTE | 2021-05-03 20:00 | Emergency Department Note ---
ED Provider Note CHIEF COMPLAINT: [] HISTORY OF PRESENT ILLNESS: This [] patient presents to the emergency department [] REVIEW OF SYSTEMS: A review of systems was performed with positives and pertinent negatives listed in the history of present illness. 10 systems were reviewed and are otherwise negative. ALLERGIES: see below MEDICATIONS: see below PMH: see below SOCIAL HISTORY: see below DDx: [] PHYSICAL EXAM: Vital signs reviewed. General: Well-appearing, in no significant distress. HEENT: No scleral icterus, PERRLA, neck supple. Atraumatic. Cardiovascular: Regular rate and rhythm, no extra sounds. Pulmonary: Clear to auscultation bilaterally, normal work of breathing. Abdomen: Soft, nontender, nondistended, positive bowel sounds. Musculoskeletal: Atraumatic, no peripheral edema. Neurologic: Patient awake alert and oriented x 3, speech is clear Skin: Warm, dry, no rash EMERGENCY DEPARTMENT COURSE/MDM: [] MONITORING: An order for cardiac monitoring was placed and the patient is noted to be in a [] at [] beats per minute. RADIOLOGY: EKG: DISPOSITION: Past Med/Surg History Medical History Abdominal aortic aneurysm dissection BEING MONITORED YEARLY (NO CHANGE IN SIZE)>FOLLOWED BY DR. PAREDES Arthritis Atrial fibrillation initial RVR, persistent, on rate control and anticoagulation per Dr. 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 Severe 80-90% apical LAD disease 2. Moderate non-obstructive proximal-mid LAD (FFR 0.83). 3. Mild-moderate multivessel disease - 30-40% proximal OM1, mid circumflex, mid RCA Diabetic nephropathy associated with type 2 diabetes mellitus Diabetic polyneuropathy lower extremities bilat, per neuro 09/2018 consult note Dyslipidemia Gastroparesis History of anemia 01/2021 pre-op H&H: 14.4/43.7 History of blood transfusion during mitral valve repair per pt History of MRSA infection ~ 5 yrs ago Hypertension controlled, stable per pt Interstitial lung disease monitoring per [facility] Lumbar back pain Pulmonary hypertension Moderate, "suspected secondary to elevated end-diastolic pressure, obesity, restrictive lung disease, hypoxemia and sleep disordered breathing: Would not recommend consideration for any pulmonary vasodilators at this point" follows with [facility] Restrictive lung disease Stroke 2019, embolic, 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 CVA post cardiac catheterization, mild residual aphasia Surgical History History of cardiac cath LAST CATH> 3 YEAR AGO (NO STENTS) History of colonoscopy History of cystoscopy Left Ureteronephroscopy 08/24/2019: Grade 3 view, MAC#3.0, ETT#8.0. No issues per anesthesia postop progress note. [facility] History of mitral valve replacement History of shoulder surgery RT/LEFT History of surgical removal of pilonidal cyst History of tooth extraction History of total left knee replacement Family History Mother Colon cancer Diabetes Grandmother Multiple sclerosis Father Diabetes Coronary heart disease Myocardial infarction Grandfather Stroke Sister Diabetes Hypertension Brother Diabetes Hypertension Son Depression Hypertension Other No family history of adverse response to anesthesia Denies family history of Ovarian cancer Prostate cancer Breast cancer Social History Smoking Status: Never smoker Second Hand Exposure: No; Hx Alcohol Use: No Hx Substance Use: No Preferred Language: Greenlandic Communication Ability: Effective Visual Impairment: No Limitations Hearing Ability: Normal Satellite Manager Required: No Beliefs That Will Affect Care: None marital status: Current Living Situation: Family current occupational status: retired current occupation: Former [employer] Feels Safe at Home: Yes Childhood Exposure to Second-Hand Smoke: No Dental Care, Regularly: No Physical Activity Frequency: Does not Exercise Seatbelt Use: always Sunscreen Use: No Assistive Devices: Glasses, Oxygen - at Night and Oxygen - Continuous Allergies Allergies Allergy/AdvReac Type Severity Reaction Status Date / Time dulaglut[facility] AdvReac Intermediate Diarrhea , Verified 05/03/21 12:09 nausea Home Meds Home Medications Medication Instructions Recorded Confirmed omega-3 fatty acids 1,250 mg 1,250 mg PO QAM 08/12/18 05/03/21 capsule cholecalciferol (vitamin D3) 25 1,000 units PO QDL tab 10/04/18 05/03/21 mcg (1,000 unit) tablet cyanocobalamin (vitamin B-12) 100 100 mcg PO 3XWK tab 12/27/19 05/03/21 mcg tablet multivitamin (Daily Multi-Vitamin) 1 tab PO QAM 03/15/20 05/03/21 tamsulosin 0.4 mg capsule 0.4 mg PO QAM 01/30/21 05/03/21 fluticasone furoate 50 1 inh INH QAM 05/03/21 05/03/21 mcg/actuation blister powder for inhalation (Arnuity Ellipta) Previous Rx's Medication Instructions Recorded albuterol sulfate 90 mcg/actuation 1 - 2 puff INHALATION Q4H PRN #18 g 12/27/19 aerosol inhaler diltiazem HCl 180 mg 180 mg PO BID 90 Days #180 cap 09/23/20 capsule,extended release 24 hr furosemide 40 mg tablet 40 mg PO QAM #90 tab 10/01/20 insulin aspart U-100 100 unit/mL 20 unit SQ TIDM #15 ml 10/10/20 (3 mL) subcutaneous pen (Novolog Flexpen U-100 Insulin aspart) fenofibrate nanocrystallized 48 mg 48 mg PO QDL #90 tab 11/14/20 tablet metoprolol tartrate 25 mg tablet 25 mg PO BID #180 tab 11/14/20 warfarin 3 mg tablet 3 mg PO HS #90 tab 12/23/20 ranolazine 500 mg tablet,extended 500 mg PO BID #60 tab 03/06/21 release,12 hr (Ranexa) rosuvastatin 20 mg tablet (Crestor) 20 mg PO QAM #90 tab 03/21/21 pregabalin 150 mg capsule (Lyrica) 150 mg PO TID #270 cap 03/26/21 insulin degludec 200 unit/mL (3 40 unit SUBCUT BID #9 ml 03/31/21 mL) subcutaneous pen (Tresiba FlexTouch U-200 insulin) tramadol 50 mg tablet 50 mg PO Q8H PRN #180 tab 04/15/21 Results & Data (ED) Vital Signs Vital Signs - 24 hr 05/03/21 10:29 05/03/21 11:25 05/03/21 11:30 Temperature 36.5 C Temperature Source Temporal Artery Scan Pulse Rate 70 Pulse Rate [Apical] 88 Pulse Rhythm [Apical] Pulse Strength [Apical] Respiratory Rate 22 24 Respiratory Effort / Characteristics Respiratory Depth Normal Blood Pressure 100/66 Blood Pressure [Left Calf] 116/61 Blood Pressure Mean 77 Blood Pressure Mean [Left Calf] 79 Blood Pressure Position Sitting Pulse Oximetry 94 85 L 90 Oxygen Delivery Method Room Air Room Air Nasal Cannula Oxygen Flow Rate 2 Sepsis Recent Fever Within 48 Hours No Sepsis New/Unexplained Change in Mental Status No Sepsis Action Taken by Nursing No Action Required 05/03/21 13:00 Temperature Temperature Source Pulse Rate Pulse Rate [Apical] 86 Pulse Rhythm [Apical] Regular Pulse Strength [Apical] Normal Respiratory Rate 20 Respiratory Effort / Characteristics Non-Labored Spontaneous Respiratory Depth Normal Blood Pressure Blood Pressure [Left Calf] 125/64 Blood Pressure Mean Blood Pressure Mean [Left Calf] 84 Blood Pressure Position Pulse Oximetry 95 Oxygen Delivery Method Nasal Cannula Oxygen Flow Rate 2 Sepsis Recent Fever Within 48 Hours Sepsis New/Unexplained Change in Mental Status Sepsis Action Taken by Nursing Laboratory Data Result diagrams: 05/03/21 11:30 05/03/21 11:30 Lab Results 05/03/21 05/03/21 05/03/21 Range/Units 11:30 11:30 11:30 WBC 16.01 H (4.8-10.8) K/uL RBC 4.68 L (4.7-6.1) M/uL Hgb 14.6 (14.0-18.0) g/dL Hct 42.3 (42-52) % MCV 90.4 (80-100) fL MCH 31.2 (25-34) pg MCHC 34.5 (32-36) g/dL RDW Std Deviation 51.1 H (36.4-46.3) fL RDW Coeff of Romulo 15.4 H (11.5-14.5) % Plt Count 231 (130-400) K/uL MPV 9.9 (7.4-10.4) fL Immature Gran % (Auto) 0.4 % Neut % (Auto) 80.4 % Lymph % (Auto) 6.9 % [place] % (Auto) 12.1 % Eos % (Auto) 0.1 % Baso % (Auto) 0.1 % Neut # (Auto) 12.88 H (1.4-6.5) K/uL Lymph # (Auto) 1.11 L (1.2-3.4) K/uL [place] # (Auto) 1.93 H (0.11-0.59) K/uL Eos # (Auto) 0.01 (0-0.5) K/uL Baso # (Auto) 0.02 (0-0.2) K/uL Immature Gran # (Auto) 0.06 H (0.00-0.02) K/uL PT 16.8 H (9.0-12.0) Seconds INR 1.6 H (0.9-1.1) APTT 36.4 H (21.0-31.0) Seconds PTT Ratio 1.3 Sodium 137 (136-145) mmol/L Potassium 4.0 (3.5-5.1) mmol/L Chloride 100 (98-107) mmol/L Carbon Dioxide 26 (21-32) mmol/L Anion Gap 11 (3-11) BUN 31 H (6-23) mg/dl Creatinine 2.14 H (0.6-1.4) mg/dl Est Cr Clr Drug Dosing 36.2 ml/min Est GFR ( Amer) 34.8 ml/min Est GFR (Non-Af Amer) 30.0 ml/min BUN/Creatinine Ratio 14.5 (10-20) Glucose 136 H (70-99(Fasting)) mg/dl Calcium 9.7 (8.5-10.1) mg/dl Magnesium 1.8 (1.7-2.4) mg/dl Total Bilirubin 1.4 H (0.2-1.0) mg/dl AST 17 (13-39) U/L ALT 13 (7-52) U/L Alkaline Phosphatase 56 (34-104) U/L Troponin I < 0.03 (0-0.04) ng/ml Total Protein 7.7 (6.0-8.3) gm/dl Albumin 4.3 (3.4-5.0) gm/dl Globulin 3.4 (2.5-4.0) gm/dl Albumin/Globulin Ratio 1.3 (0.9-2) Urine Color Urine Appearance (Clear) Urine pH (4.5-7.5) Ur Specific [place] (1.000-1.030) Urine Protein (Negative) Urine Glucose (UA) (Negative) Urine Ketones (Negative) Urine Blood (Negative) Urine Nitrite (Negative) Urine Bilirubin (Negative) Urine Urobilinogen (Negative) Ur Leukocyte Esterase (Negative) Urine WBC (Auto) (0-5) /hpf Urine RBC (Auto) (0-4) /hpf U Hyaline Cast (Auto) (0-5) /lpf U Epithel Cells (Auto) (0-5) /lpf Urine Bacteria (Auto) (Negative) SARS-CoV-2, RNA, NAAT (NEGATIVE) 05/03/21 05/03/21 Range/Units 12:30 12:30 WBC (4.8-10.8) K/uL RBC (4.7-6.1) M/uL Hgb (14.0-18.0) g/dL Hct (42-52) % MCV (80-100) fL MCH (25-34) pg MCHC (32-36) g/dL RDW Std Deviation (36.4-46.3) fL RDW Coeff of Romulo (11.5-14.5) % Plt Count (130-400) K/uL MPV (7.4-10.4) fL Immature Gran % (Auto) % Neut % (Auto) % Lymph % (Auto) % [place] % (Auto) % Eos % (Auto) % Baso % (Auto) % Neut # (Auto) (1.4-6.5) K/uL Lymph # (Auto) (1.2-3.4) K/uL [place] # (Auto) (0.11-0.59) K/uL Eos # (Auto) (0-0.5) K/uL Baso # (Auto) (0-0.2) K/uL Immature Gran # (Auto) (0.00-0.02) K/uL PT (9.0-12.0) Seconds INR (0.9-1.1) APTT (21.0-31.0) Seconds PTT Ratio Sodium (136-145) mmol/L Potassium (3.5-5.1) mmol/L Chloride (98-107) mmol/L Carbon Dioxide (21-32) mmol/L Anion Gap (3-11) BUN (6-23) mg/dl Creatinine (0.6-1.4) mg/dl Est Cr Clr Drug Dosing ml/min Est GFR ( Amer) ml/min Est GFR (Non-Af Amer) ml/min BUN/Creatinine Ratio (10-20) Glucose (70-99(Fasting)) mg/dl Calcium (8.5-10.1) mg/dl Magnesium (1.7-2.4) mg/dl Total Bilirubin (0.2-1.0) mg/dl AST (13-39) U/L ALT (7-52) U/L Alkaline Phosphatase (34-104) U/L Troponin I (0-0.04) ng/ml Total Protein (6.0-8.3) gm/dl Albumin (3.4-5.0) gm/dl Globulin (2.5-4.0) gm/dl Albumin/Globulin Ratio (0.9-2) Urine Color Dark Yellow Urine Appearance Turbid A (Clear) Urine pH 5.5 (4.5-7.5) Ur Specific [place] 1.017 (1.000-1.030) Urine Protein 2+ H (Negative) Urine Glucose (UA) Negative (Negative) Urine Ketones Negative (Negative) Urine Blood 2+ H (Negative) Urine Nitrite Negative (Negative) Urine Bilirubin Negative (Negative) Urine Urobilinogen Negative (Negative) Ur Leukocyte Esterase 3+ H (Negative) Urine WBC (Auto) >30 H (0-5) /hpf Urine RBC (Auto) 10-30 H (0-4) /hpf U Hyaline Cast (Auto) 1-5 (0-5) /lpf U Epithel Cells (Auto) 20-30 H (0-5) /lpf Urine Bacteria (Auto) 4+ H (Negative) SARS-CoV-2, RNA, NAAT NEGATIVE (NEGATIVE) Administered Medications Albuterol (Albut/Ipratrop 3mg/0.5mg Neb 3 Ml Vial) 3 ml NEB QIDR [facility]; Protocol Stop: 06/02/21 16:57 Last Admin: 05/03/21 19:29 Dose: 3 ml Documented by: [id number] Admin: 05/03/21 18:00 Dose: Not Given Documented by: [id number] Ceftriaxone Sodium 2,000 mg/ (Dextrose) 70 mls @ 140 mls/hr IV DAILY@1800 FRANKIE Stop: 05/13/21 17:59 Last Admin: 05/03/21 19:04 Dose: 140 mls/hr Documented by: [id number] Insulin Aspart (Insulin Aspart Per Unit) 0 units SC ACHS [facility] Stop: 06/02/21 16:57 Last Admin: 05/03/21 17:37 Dose: Not Given Documented by: [id number] Warfarin Sodium (Warfarin Sod 3 Mg Tab) 3 mg PO SuTuWeFrSa@1600 FRANKIE Stop: 06/02/21 18:59 Last Admin: 05/03/21 18:38 Dose: 3 mg Documented by: [id number] Discontinued Medications Cefepime HCl (Maxipime) 2,000 mg in 20 mls @ 5 mls/min IV NOW STA; Protocol Stop: 05/03/21 13:50 Last Admin: 05/03/21 14:53 Dose: 5 mls/min Documented by: [id number] Imaging Data Radiologist's Impression: Chest X-Ray 05/03/21 10:36 XR chest 1V portable CLINICAL HISTORY: Shortness of breath. COMPARISON STUDY: Chest radiograph February 04, 2021. FINDINGS: No pneumothorax or pleural effusion is present. Cardiomegaly is unchanged. Prosthetic mitral valve is in place. No evidence for pulmonary edema. Right lower lung opacity is unchanged and favors scarring. No consolidation to suggest pneumonia. No change in appearance of the chest. IMPRESSION: No acute cardiopulmonary findings. No change in appearance of the chest. ACT 112: Negative or not required by law. Electronically signed by: Mc Concepcion M.D. 05/03/2021 10:54 AM Discharge Plan Visit Data Chief Complaint: Shortness of Breath/Dyspnea Stated Complaint: SOB, TIRED ED Provider: Guillermina Boateng Patient Disposition: Admitted As Inpatient Discharge Instructions Interventions: ED Discharge Assessment Last Done: 05/03/21 16:39
[2021-05-03] MEDS: dilTIAZem HCL 180 MG CAPCR PO SCH (20:25)
[2021-05-03] MEDS: PREGABALIN 50 MG CAP PO SCH (20:25)
[2021-05-03] MEDS: METOPROLOL TARTRATE 25 MG TAB PO SCH (20:25)
[2021-05-03] MEDS: RANOLAZINE 500 MG ER TAB PO SCH (20:25)
[2021-05-03] MEDS: methylPREDNISolone 40 MG in SYRINGE 0 ML IV SCH (20:28)
[2021-05-03] MEDS: INSULIN GLARGINE SOLOSTAR 100 UNITS/ML 3 ML PEN SC SCH (20:37)
[2021-05-03] MEDS ORDERED: NON-FORMULARY MEDICATION (Insulin Degludec [Tresiba Flextouch U-200] 200 unit/mL (3 mL) in SQ SCH (21:00)
[2021-05-04 06:37] LABS: Hematocrit (blood only) 43.1 % (42-52); Hemoglobin 14.9 g/dL (14.0-18.0); Mean Corpuscular Hemoglobin 31.1 pg (25-34); Mean Corpuscular Hgb Conc 34.6 g/dL (32-36); Mean Platelet Volume 10.2 fL (7.4-10.4); Platelet Count 216 K/uL (130-400); RDW Coefficient of Variation 14.8 % (11.5-14.5); Red Blood Count 4.79 M/uL (4.7-6.1); White Blood Count 11.61 K/uL (4.8-10.8)
[2021-05-04 07:04] LABS: BUN Creatinine Ratio 18.7 (10-20); Calcium 9.8 mg/dl (8.5-10.1); Creatinine Clr Calc Pharmacy 36.5 ml/min; Est GFR (African American) 35.8 ml/min; Est GFR (Non-African American) 30.9 ml/min; Magnesium 2.2 mg/dl (1.7-2.4); Potassium 4.1 mmol/L (3.5-5.1)
[2021-05-04] MEDS: ALBUT/IPRATROP 3MG/0.5MG NEB 3 ML VIAL NEB SCH ×4 (07:22→19:01)
[2021-05-04] MEDS: methylPREDNISolone 40 MG in SYRINGE 0 ML IV SCH (07:44)
[2021-05-04] MEDS: FLUTICASONE FUROATE 100MCG 14 PUFFS/INHALER INH SCH (07:44)
[2021-05-04] MEDS: ROSUVASTATIN CALCIUM 20 MG TAB PO SCH (07:45)
[2021-05-04] MEDS: FENOFIBRATE NANOCRYSTALLIZED 48 MG TABLET PO SCH (07:45)
[2021-05-04] MEDS: dilTIAZem HCL 180 MG CAPCR PO SCH ×2 (07:45→20:22)
[2021-05-04] MEDS: METOPROLOL TARTRATE 25 MG TAB PO SCH ×2 (07:45→20:23)
[2021-05-04] MEDS: RANOLAZINE 500 MG ER TAB PO SCH ×2 (07:45→20:23)
[2021-05-04] MEDS: TAMSULOSIN HCL 0.4 MG CAP PO SCH (07:46)
[2021-05-04] MEDS: PREGABALIN 50 MG CAP PO SCH ×3 (07:46→20:26)
[2021-05-04] MEDS: INSULIN ASPART PER UNIT SC SCH ×4 (08:46→20:58)
[2021-05-04] MEDS: INSULIN GLARGINE SOLOSTAR 100 UNITS/ML 3 ML PEN SC SCH ×2 (08:46→20:57)
--- NOTE | 2021-05-04 11:10 | Pharmacy Report ---
Pharmacy Glycemic Short Note 2 - Date of Service May 04, 2021 - Glycemic Short BSG Results (Last 24 hours): 05/03/21 05/03/21 05/03/21 11:30 17:02 20:35 Glucose 136 H POC Glucose 90 146 H 05/04/21 05/04/21 05:59 08:16 Glucose 242 H POC Glucose 248 H OUTPATIENT ANTIDIABETIC REGIMEN: * Tresiba 40 units SC BID * Novolog 20 units SC TIDM * HbA1c 6.7% on 04/30/21 ASSESSMENT: 05/04/21: * Patient received total 51 units of insulin yesterday; 50 units basal and 1 unit bolus at bedtime. * Fasting BSG today was 248 mg/dl. Continued with basal insulin scale of 30-50 units SQ BID based on BSG. Patient received 50 units this AM. * Novolog CR tightened slightly this AM since patient was on IV Solu medrol 40 mg BID. This is now transitioned to PO Prednisone 40 mg daily starting tomorrow. * Pre-lunch BSG shaila to 357 mg/dl. This is most likely steroid induced. Novolog parameters tightened further at lunch due to high BSG but then loosened at dinner since solu-medrol discontinued. * Also gave patient IV Regular insulin 10 units push x1 for the BSG above 300 mg/dl at lunch. * Above interventions should help BSG trend down by dinnertime. Background 05/03/21: * 71 yo M with T2DM well controlled on above regimen admitted for ILD exacerbation and possible UTI and scheduled to start steroids this evening * Will transition to formulary long-acting Lantus. Home dose OK tonight as steroids are starting, may also require increase * Novolog at weight-based moderate to severe stress estimate for now as steroids have not yet started. Will likely require tightening tomorrow PLAN FOR INPATIENT GLYCEMIC CONTROL: * Basal insulin * Lantus 30-50 units SQ BID, depending on BSG * Bolus insulin * NovoLog per scale ACHS or Q6hrs while NPO * Goal Range: Low 110 mg/dL - High 140 mg/dL * Correction Factor: 15 mg/dL/unit * Nutritional / Prandial insulin per carb ratio of 1 unit per 6 grams CHO consumed
[2021-05-04] MEDS ORDERED: INSULIN HUMAN REGULAR PER UNIT 10 UNITS in SYRINGE 9.9 ML IV SCH (12:00)
--- NOTE | 2021-05-04 12:11 | Pulmonary Consultation ---
Date of Consultation May 04, 2021 Assessment & Plan (1) Idiopathic interstitial pneumonia: (2) Hypoxemia: (3) Dyspnea on exertion: (4) Chronic diastolic CHF (congestive heart failure): (5) History of mitral valve replacement: Patient with numerous comorbidities as outlined in the HPI. Presenting to the hospital with dyspnea. Found to be in GRACIE and concern for possible UTI. I suspect his dyspnea is multifactorial related to his chronic cardiac disease and to some degree his interstitial lung disease. I have not convinced of an interstitial lung disease flare as he does not have increasing cough symptoms and his CT chest looks relatively stable compared to prior. Bronchoscopy would be difficult in this patient given his numerous comorbidities. He is proBNP and procalcitonin were both mildly elevated, but this is in the context of GRACIE. Recommend gentle diuresis as able. We will transition his Solu-Medrol to 40 mg of prednisone. I would recommend a 5 to 7-day course of prednisone and follow- up in the pulmonary clinic with PFTs. Will check an ESR and CRP level today. Will send a CK, aldolase and JO1 level for completion. I suspect that he has chronic dyspnea that has progressed over time due to cardiac disease, ILD and deconditioning. He likely needs to wear his oxygen at all times during the day which he has not been doing. Will need a walk test evaluation prior to discharge to evaluate for exertional hypoxemia. Statistically speaking, given his age and negative rheumatologic work-up, the most likely interstitial lung disease that he has is idiopathic pulmonary fibrosis. I am not sure that he is a good candidate for Esbriet or Ofev given his chronic comorbidities. He does have some minimal groundglass opacities noted on CT chest which would argue against UIP/IPF. Again, he is a poor candidate for VATS lung biopsy or bronchoscopy. Pulmonary will continue to follow. Thank you for the consult. History of Present Illness Reason for Consultation: Possible interstitial lung disease flare Attending Physician: Kal Banda MD History of Present Illness 71-year-old male with a past medical history of interstitial lung disease, coronary artery disease, secondary pulmonary hypertension, mitral valve annuloplasty ringdiastolic heart failure, morbid obesity, stage III 3 CKD, atrial fibrillation and obstructive sleep apnea presenting to the hospital due to increasing shortness of breath over the past 2 to 3 days. She denies any increased cough. No fevers or chills. He notes that getting around his house to go to the bathroom for example has been worse as of late. He describes that he had a 6-minute walk distance in the past which indicated that he needs oxygen with exertion. He has not been using oxygen at home other than leading to his BiPAP device. He did mention to nursing that he has not been the most compliant with his BiPAP as of late. We do not have any recent BiPAP compliance data reviewed. The last BiPAP compliance data is from September 2020 which did indicate excellent compliance over the course of 30 days. He is followed closely by Dr. Gomez in the outpatient clinic. He did undergo a hypersensitivity pneumonitis panel in 2018 which was negative. Rheumatological serologic work-up was completed 03/22/2018 including rheumatoid factor, RAVIN screen, Sjogren's antibodies, LUMP ROOM SUPERVISOR antibody, SCL70 antibody and complement levels which were all within normal limits. CT chest imaging personally reviewed from yesterday which demonstrates continued mild bronchiectasis in the right middle lobe and lower lobes and subpleural reticulation. Patient has never undergone bronchoscopy or lung biopsy in the past due to concerns of complications from his numerous comorbidities. PFT from 10/14/2020 reviewed. FEV1 52%. FVC 55%. TLC 59%. DLCO 45%. DL/VA 80%. Echo from 09/18/2020 with normal LVEF. Mild pulmonary hypertension with an christiana mated pulmonary artery systolic pressure greater than 50 mmHg. Mild mitral stenosis. Allergies Allergy/AdvReac Type Severity Reaction Status Date / Time [facility]lut[facility] AdvReac Intermediate Diarrhea , Verified 05/03/21 12:09 nausea Home Medications Medication Instructions Recorded Confirmed Type omega-3 fatty acids 1,250 mg 1,250 mg PO QAM 08/12/18 05/03/21 History capsule cholecalciferol (vitamin D3) 25 1,000 units PO QDL tab 10/04/18 05/03/21 History mcg (1,000 unit) tablet albuterol sulfate 90 mcg/actuation 1 - 2 puff INHALATION Q4H PRN #18 g 12/27/19 05/03/21 Rx aerosol inhaler cyanocobalamin (vitamin B-12) 100 100 mcg PO 3XWK tab 12/27/19 05/03/21 History mcg tablet multivitamin (Daily Multi-Vitamin) 1 tab PO QAM 03/15/20 05/03/21 History diltiazem HCl 180 mg 180 mg PO BID 90 Days #180 cap 09/23/20 05/03/21 Rx capsule,extended release 24 hr furosemide 40 mg tablet 40 mg PO QAM #90 tab 10/01/20 05/03/21 Rx insulin aspart U-100 100 unit/mL 20 unit SQ TIDM #15 ml 10/10/20 05/03/21 Rx (3 mL) subcutaneous pen (Novolog Flexpen U-100 Insulin aspart) fenofibrate nanocrystallized 48 mg 48 mg PO QDL #90 tab 11/14/20 05/03/21 Rx tablet metoprolol tartrate 25 mg tablet 25 mg PO BID #180 tab 11/14/20 05/03/21 Rx warfarin 3 mg tablet 3 mg PO HS #90 tab 12/23/20 05/03/21 Rx tamsulosin 0.4 mg capsule 0.4 mg PO QAM 01/30/21 05/03/21 History ranolazine 500 mg tablet,extended 500 mg PO BID #60 tab 03/06/21 05/03/21 Rx release,12 hr (Ranexa) rosuvastatin 20 mg tablet (Crestor) 20 mg PO QAM #90 tab 03/21/21 05/03/21 Rx pregabalin 150 mg capsule (Lyrica) 150 mg PO TID #270 cap 03/26/21 05/03/21 Rx insulin degludec 200 unit/mL (3 40 unit SUBCUT BID #9 ml 03/31/21 05/03/21 Rx mL) subcutaneous pen (Tresiba FlexTouch U-200 insulin) tramadol 50 mg tablet 50 mg PO Q8H PRN #180 tab 04/15/21 05/03/21 Rx fluticasone furoate 50 1 inh INH QAM 05/03/21 05/03/21 History mcg/actuation blister powder for inhalation (Arnuity Ellipta) Patient History Medical History (Updated 05/04/21 @ 12:02 by Kwadwo Bravo MD) Abdominal aortic aneurysm dissection BEING MONITORED YEARLY (NO CHANGE IN SIZE)>FOLLOWED BY DR. PAREDES Arthritis Atrial fibrillation initial RVR, persistent, on rate control and anticoagulation per Dr. Paredes 05/28/2020 note Bilateral renal cysts BPH with obstruction/lower urinary tract symptoms CKD stage 3 due to type 2 diabetes mellitus follows with [place] [facility] Complex sleep apnea syndrome ASV machine with 2L supplemental oxygen nightly-compliant, follows with [place] Congestive heart failure Coronary atherosclerosis of [place] coronary vessel 10/10/2018 Cardiac cath summary: 1. Severe 80-90% apical LAD disease 2. Moderate non-obstructive proximal-mid LAD (FFR 0.83). 3. Mild-moderate multivessel disease - 30-40% proximal OM1, mid circumflex, mid RCA Diabetic nephropathy associated with type 2 diabetes mellitus Diabetic polyneuropathy lower extremities bilat, per neuro 09/2018 consult note Dyslipidemia Dyspnea on exertion Gastroparesis History of anemia 01/2021 pre-op H&H: 14.4/43.7 History of blood transfusion during mitral valve repair per pt History of MRSA infection ~ 5 yrs ago Hypertension controlled, stable per pt Idiopathic interstitial pneumonia Interstitial lung disease monitoring per [place] [facility] Lumbar back pain Pulmonary hypertension Moderate, "suspected secondary to elevated end-diastolic pressure, obesity, restrictive lung disease, hypoxemia and sleep disordered breathing: Would not recommend consideration for any pulmonary vasodilators at this point" follows with [place] Restrictive lung disease Stroke 2019, embolic, 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 CVA post cardiac catheterization, mild residual aphasia Surgical History History of cardiac cath LAST CATH> 3 YEAR AGO (NO STENTS) History of colonoscopy History of cystoscopy Left Ureteronephroscopy 08/24/2019: Grade 3 view, MAC#3.0, ETT#8.0. No issues per anesthesia postop progress note. History of mitral valve replacement 2007, [facility] History of mitral valve replacement History of shoulder surgery RT/LEFT History of surgical removal of pilonidal cyst History of tooth extraction History of total left knee replacement Family History Mother Colon cancer Diabetes Grandmother Multiple sclerosis Father Diabetes Coronary heart disease Myocardial infarction Grandfather Stroke Sister Diabetes Hypertension Brother Diabetes Hypertension Son Depression Hypertension Other No family history of adverse response to anesthesia Denies family history of Ovarian cancer Prostate cancer Breast cancer Social History Smoking Status: Never smoker Second Hand Exposure: No; Hx Alcohol Use: No Hx Substance Use: No Preferred Language: Maori Communication Ability: Effective Visual Impairment: No Limitations Hearing Ability: Normal Hazardous Materials Driver Required: No Beliefs That Will Affect Care: None marital status: Current Living Situation: Family current occupational status: retired current occupation: Former [employer] Feels Safe at Home: Yes Childhood Exposure to Second-Hand Smoke: No Dental Care, Regularly: No Physical Activity Frequency: Does not Exercise Seatbelt Use: always Sunscreen Use: No Assistive Devices: Oxygen - Continuous Review of Systems Review of Systems: All systems reviewed & are unremarkable except as noted in Subjective Physical Exam Physical Exam: Constitutional: Patient appears to be of their stated age. Patient is in no apparent distress. Obese appearing. Eyes: Pupils are equal round and reactive to light. Conjunctivae are normal. Anicteric sclera. Ears nose, mouth and throat: No obvious deformities. Neck: Trachea is midline. Visual inspection is normal. Respiratory: Fine bilateral Velcro crackles noted. Cardiovascular: Regular rate and rhythm. No murmurs. Trace edema in the lower extremities. Gastrointestinal: Normal bowel sounds, soft, nontender and nondistended. No hepatosplenomegaly noted. Musculoskeletal: No cyanosis. Patient is able to move all extremities. Skin: No rashes, warm dry and intact. Neurologic: No obvious focal neurological deficits seen. Psychiatric: Alert and oriented x3 with a euthymic affect. Results & Data Results & Data ([facility]) Vital Signs (Past 12 Hours) Vital Signs Temp Pulse Resp BP Pulse Ox 05/04/21 10:50 80 16 96 05/04/21 10:28 36.2 C L 05/04/21 07:52 35.8 C L 05/04/21 07:37 78 16 120/72 95 05/04/21 07:23 72 16 97 PG Care Time/CCT Total # of Minutes Spent Total Time Spent with Patient: Total time spent is greater than 50% in coordination of care (as documented) at patient's floor/unit and/or counseling patient: Coding Level of Care Code 72015 Inpt Consult Level 4 Diagnoses Hypoxemia R09.02 Dyspnea on exertion R06.00 Idiopathic interstitial pneumonia J84.111 Chronic diastolic CHF (congestive heart failure) I50.32 History of mitral valve replacement Z95.2
[2021-05-04] MEDS ORDERED: ENOXAPARIN 1 MG/KG SC SCH (12:40)
--- NOTE | 2021-05-04 12:41 | Hospitalist Progress Note ---
Date of Service May 04, 2021 Assessment & Plan (1) Interstitial lung disease: Plan: ?acute exacerbation. He feels he is ~50% of his usual exercise capacity. No fevers/chills or cough to indicate pneumonia. - Will get procal, BNP, and vbg - CT chest w/o acute changes to suggest pneumonia - Pulmonology consulted, appreciate input. Transitioned Solumedrol to Predniso ne. - Supplemental O2 to maintain SpO2 > 90%, nursing to wean down as pulse ox has been in the high 90s - Neb treatments - Additional testing as ordered by pulm to determine cause of ILD (2) Hypoxemia: Plan: Normally on 2L with his AVS machine at night, but none during the day. In ED, required 2L NC to maintain SpO2 > 90%. - As above - Pulmonology indicates will likely need to wear O2 continuously - Ambulatory pulse ox ordered to determine O2 requirements w/ activity (3) Stage 3b chronic kidney disease: Plan: Baseline Cr 1.5 - 1.9. Cr is 2.15 on admission. Not officially acute kidney injury. - Hold Lasix x 1 day - Small bolus of 250 mL - Monitor Cr (4) Urinary tract infection: Plan: - UA suggestive of UTI. Patient's symptoms are questionable. He reports "smelly" urine for at least a week or longer. However, given elevated WBC, will treat. - Ceftriaxone empirically - Follow culture which preliminarily is positive for GN bacilli - Pt has followed with urology, has a h/o renal calculi, last note suggests that pt is likely colonized with e. coli and not to treat unless truly symptomatic - He did present with wbc of 16,000 with left shift which is why treatment was initiated - Obtain CT AP w/o contrast to look at bladder and for renal calculi (5) AF (atrial fibrillation): Plan: Permanent. HR was 70-80 in the ED. - Continue home beta-gilberto and calcium channel gilberto - On warfarin, INR subtherapeutic on 05/03 - Bridge w/ Lovenox today and give a one time increased dose of Coumadin 5mg on 05/04 - Repeat INR in AM (6) Coronary atherosclerosis of creek coronary vessel: Plan: Per cardiology note, "small apical LAD disease in 09/2018 and otherwise nonobstructive disease." Had perfusion scan on 04/04/2021 as pre-op for surgery which showed no reversible disease. Do not feel his present shortness of breath and dyspnea on exertion are anginal equivalents, but rather his lung disease. - Continue home fenofibrate, beta-gilberto, ranolazine, and statin (7) Chronic diastolic CHF (congestive heart failure): Plan: Presently appears euvolemic. - Continue home Lasix starting on 05/05 to give him a 1-day holiday for mildly elevated Cr (8) BPH with obstruction/lower urinary tract symptoms: Plan: Reports chronic LUTS that have been stable for years. - Continue home tamsulosin (9) Diabetes mellitus type 2, controlled: Plan: A1c was 6.7% this month. - Reduce home long-acting insulin from 40 units BID to 20 units BID given reduction in meal size in hospital. - Sliding scale insulin based on high insulin resistance - Glycemic pharmacy consulted - Continue home pregabalin (renally-reduce dose to 50 mg TID though from his home of 150 mg TID) (10) Complex sleep apnea syndrome: Plan: Has an auto-BiPap device at home. It appears settings of //2L NC would approx imate his device per the BiPap report from 09/2020. He is very compliant and uses it every night. - Use hospital device per patient preference. (11) History of mitral valve replacement: Plan: Mitral valve repair in 2007 for severe MR. - No inpatient needs (12) DVT prophylaxis: Plan: Warfarin for his afib--subtherapeutic, see plan as above Plan: Consult PT/OT D/C planning Anticipate home in the next 24 hours Plan d/w Dr. Banda Admission and Anticipated Discharge Date Admission Date: May 03, 2021 Subjective Patient seen on daily rounds this morning. He is resting on edge of bed this AM and reports that his breathing has improved from yesterday. Denies cp, cough, n/v/d, f/c, headache, or dysuria. Pt admits to urine having an odor. Review of Systems Review of Systems: CONSTITUTIONAL: Denies weight loss/gain, fever and chills, fatigue, malaise, generalized weakness. HEENT: Denies changes in vision and hearing. RESPIRATORY: +SOB but better today. No cough, wheezing. CV: Denies palpitations, CP, lower extremity edema, orthopnea, PND. GI: Denies abdominal pain, nausea, vomiting and diarrhea. : +odor to urine. Denies dysuria and urinary frequency, urgency, hesitancy. MUSCULOSKELETAL: Denies myalgia and joint pain. SKIN: Denies rash and pruritus. NEUROLOGICAL: Denies headache, syncope, focal weakness, numbness, tingling. PSYCHIATRIC: Denies recent changes in mood. Denies anxiety and depression. Physical Exam Physical Exam: GENERAL: 71 yo well-developed, well-nourished elderly WM. NAD. LUNGS: Nonlabored. Fine bibasilar crackles appreciated. No wheezes. CARDIOVASCULAR: Regular rate and rhythm. No M/G/R. ABDOMEN: Soft, non-tender and non-distended. BS normal x 4 quad. EXTREMITIES: No edema. Non-tender. Peripheral pulses +2/4. NEUROLOGIC: A&O x3. PSYCHIATRIC: Cooperative. Appropriate mood and affect. SKIN: Warm, dry, intact. No rashes or lesions. Results & Data Results & Data ([facility]) Vital Signs (Past 12 Hours) Vital Signs Temp Pulse Resp BP Pulse Ox 05/04/21 10:50 80 16 96 05/04/21 10:28 36.2 C L 05/04/21 07:52 35.8 C L 05/04/21 07:37 78 16 120/72 95 05/04/21 07:23 72 16 97 Laboratory Results 05/04/21 05:59 05/04/21 05:[address] 05/03/21 14:42 CT OF THE CHEST WITHOUT IV CONTRAST CLINICAL HISTORY: ILD exacerbation COMPARISON STUDY: Chest CT March 12, 2020. Chest radiograph performed earlier today. CT DOSE: 840.09 mGy.cm TECHNIQUE: Axial images of the chest were obtained without IV contrast. Images were reviewed in the axial, sagittal, and coronal planes. IV contrast was not administered for this examination. Automated exposure control was utilized for the study. A dose lowering technique was utilized adhering to the principles of ALARA. FINDINGS: No enlarged axillary, mediastinal or hilar lymph nodes are present. Cardiomegaly is unchanged. There is a prosthetic mitral valve. No pericardial effusion is present. Mild herniation of the lung between the right third and fourth ribs is unchanged. There is no pneumothorax or pleural effusion. Central airways are patent. Mild bronchiectasis is most evident within the right middle and right lower lobe. This is similar to prior exam. Subpleural reticulation and groundglass opacities are again noted. These were present on prior exam. Subpleural groundglass opacity reticulation with bronchiectasis within the right middle lobe is unchanged. This may reflect scarring or interstitial lung disease. No superimposed consolidation is present. No suspicious pulmonary nodules are present. Visualized portions of the upper abdomen are unremarkable on this unenhanced exam. IMPRESSION: 1. No acute process within the chest. 2. No change in subpleural groundglass opacities with reticulation since prior exam. This favors interstitial lung disease with a NSIP pattern. No superimposed consolidation. 3. Cardiomegaly. ACT 112: Negative or not required by law. Electronically signed by: Mc Concepcion M.D. 05/03/2021 3:28 PM PG Care Time/CCT Total # of Minutes Spent Total Time Spent with Patient: Total time spent is greater than 50% in coordination of care (as documented) at patient's floor/unit and/or counseling patient: Coding Level of Care Code 21684 Subseq Hosp Care Lvl 3 Diagnoses Interstitial lung disease J84.9 Hypoxemia R09.02 Stage 3b chronic kidney disease N18.32 Urinary tract infection N39.0 AF (atrial fibrillation) I48.91 Coronary atherosclerosis of creek coronary vessel I25.10 Craig vs. transplanted heart: creek heart Associated angina: without angina Chronic diastolic CHF (congestive heart failure) I50.32 BPH with obstruction/lower urinary tract symptoms N40.1; N13.8 Diabetes mellitus type 2, controlled E11.9 Complex sleep apnea syndrome G47.31 History of mitral valve replacement Z95.2 DVT prophylaxis Z29.9 (1) Coronary atherosclerosis of creek coronary vessel Craig vs. transplanted heart: creek heart Associated angina: without angina Qualified Code(s): I25.10 - Atherosclerotic heart disease of creek coronary artery without angina pectoris
[2021-05-04] MEDS: ENOXAPARIN INJ 120 MG/0.8 ML SYR SQ SCH (13:46)
[2021-05-04] MEDS ORDERED: WARFARIN SOD 5 MG TAB PO SCH (16:00)
[2021-05-04] MEDS: cefTRIAXone SODIUM 2,000 MG in DEXTROSE 5% 50 ML IV SCH (17:19)
[2021-05-05] MEDS: INSULIN ASPART PER UNIT SC SCH ×4 (00:08→13:11)
[2021-05-05] MEDS: ENOXAPARIN INJ 120 MG/0.8 ML SYR SQ SCH ×2 (00:24→11:39)
[2021-05-05 06:53] LABS: Creatinine Clr Calc Pharmacy 36.6 ml/min; Est GFR (Non-African American) 31.1 ml/min
[2021-05-05] MEDS: ALBUT/IPRATROP 3MG/0.5MG NEB 3 ML VIAL NEB SCH (07:03)
[2021-05-05 07:10] LABS: Prothrombin Time 20.1 Seconds (9.0-12.0)
--- NOTE | 2021-05-05 07:51 | Pulmonology Progress Note ---
Date of Service May 05, 2021 Assessment & Plan (1) Idiopathic interstitial pneumonia: (2) Hypoxemia: (3) Dyspnea on exertion: (4) Chronic diastolic CHF (congestive heart failure): Plan: CT chest 05/03/2021 personally reviewed: Increased peripheral reticular markings especially in the right middle and bilateral lower lobes Traction bronchiectasis in the right middle lobe No mediastinal lymphadenopathy --ILD Unsure if this was an exacerbation as it was no significant change on the CT chest done 05/03/2021 CK, aldolase as well as anti-Aleena 1 antibodies were sent yesterday. Follow that up --Shortness of breath Improved --CALOS On ASV at home --Pulmonary hypertension Multifactorial Type II as well as CALOS and morbid obesity Plan: Recommend titrating down prednisone 40 mg for 2 days followed by 20 mg for 2 days and then stop Follow-up outpatient with Dr. Gomez Needs to be compliant with ASV at home No further recommendation from pulmonary perspective. Will sign off Please call directly with any questions Please note the above document was generated using voice recognition software. It may contain grammatical, syntax or spelling errors.Any formal questions or concerns about the content, text or information contained within the body of this dictation should be directly addressed to the provider for clarification. Admission and Anticipated Discharge Date Admission Date: May 03, 2021 Subjective Patient seen and examined at bedside. No acute distress, no adverse events over night. Patient says he is feeling better. Denies any significant cough. No hemoptysis. No chest pain. Shortness of breath is significantly improved. Good appetite. Review of Systems Review of Systems: All systems reviewed & are unremarkable except as noted in Subjective Physical Exam Physical Exam: Constitutional: No acute distress HEENT: EOMI, PERRLA Respiratory system: Decreased air entry bilaterally, no wheeze, no rhonchi, mild crackles bilaterally more on the left side. CVS: S1-S2 positive, no murmurs or gallops Abdomen: Soft, nontender, nondistended, positive bowel sounds x4, obese Extremities: +2 pulses bilaterally radialis/ dorsalis pedis, no cyanosis, no edema Neuro: Awake alert oriented x3 Psych: Normal mood and affect G/U: No Ruth Skin: no rashes, warm and dry Left upper back right above the left scapula there is 1.5 x 1.5 cm tender nodularity which is draining pus Lymphatic: no cervical or axillary lymphadenopathy Results & Data Results & Data ([facility]) Vital Signs (Past 12 Hours) Vital Signs Temp Pulse Resp BP Pulse Ox 05/05/21 07:15 36.3 C L 85 16 100/56 L 92 05/05/21 07:03 95 H 16 98 05/05/21 06:07 36.6 C 80 18 144/77 H 95 05/04/21 23:24 36.4 C L 100 H 18 118/63 94 Laboratory Results 05/04/21 05:59 05/05/21 06:16 PG Care Time/CCT Total # of Minutes Spent Total Time Spent with Patient: Total time spent is greater than 50% in coordination of care (as documented) at patient's floor/unit and/or counseling patient: [place] [address] Subseq Hosp Care Lvl 2 Patient Type Established Diagnoses Idiopathic interstitial pneumonia J84.111 Hypoxemia R09.02 Dyspnea on exertion R06.00 Chronic diastolic CHF (congestive heart failure) I50.32
[2021-05-05] MEDS ORDERED: INSULIN HUMAN NPH SC SCH (09:00)
[2021-05-05] MEDS ORDERED: predniSONE 20 MG TAB PO SCH (09:00)
[2021-05-05] MEDS ORDERED: FUROSEMIDE 40 MG TAB PO SCH (09:00)
[2021-05-05] MEDS: INSULIN GLARGINE SOLOSTAR 100 UNITS/ML 3 ML PEN SC SCH (09:02)
[2021-05-05] MEDS: FLUTICASONE FUROATE 100MCG 14 PUFFS/INHALER INH SCH (09:17)
[2021-05-05] MEDS: METOPROLOL TARTRATE 25 MG TAB PO SCH (09:18)
[2021-05-05] MEDS: ROSUVASTATIN CALCIUM 20 MG TAB PO SCH (09:18)
[2021-05-05] MEDS: dilTIAZem HCL 180 MG CAPCR PO SCH (09:18)
[2021-05-05] MEDS: TAMSULOSIN HCL 0.4 MG CAP PO SCH (09:18)
[2021-05-05] MEDS: RANOLAZINE 500 MG ER TAB PO SCH (09:18)
[2021-05-05] MEDS: PREGABALIN 50 MG CAP PO SCH ×2 (09:21→14:48)
[2021-05-05] MEDS ORDERED: ALBUT/IPRATROP 3MG/0.5MG NEB 3 ML VIAL NEB PRN (10:48)
--- NOTE | 2021-05-05 11:08 | Pharmacy Report ---
Pharmacy Glycemic Short Note 2 - Date of Service May 05, 2021 - Glycemic Short BSG Results (Last 24 hours): 05/04/21 05/04/21 05/04/21 11:41 11:42 16:52 POC Glucose 373 H* 357 H* 245 H 05/04/21 05/05/21 05/05/21 20:41 00:01 00:04 POC Glucose 279 H 308 H* 292 H 05/05/21 05/05/21 04:06 08:07 POC Glucose 233 H 223 H OUTPATIENT ANTIDIABETIC REGIMEN: * Tresiba 40 units SC BID * Novolog 20 units SC TIDM * HbA1c 6.7% on 04/30/21 ASSESSMENT: 05/05/21: * BSGs poorly controlled yesterday, ranging 245-357 mg/dL, fasting BSG of 223 mg/dL * Received 183 units of insulin (100 units of basal and 83 units of prandial/correctional bolus) * Will give NPH with prednisone today and tighten Novolog parameters further 05/04/21: * Patient received total 51 units of insulin yesterday; 50 units basal and 1 unit bolus at bedtime. * Fasting BSG today was 248 mg/dl. Continued with basal insulin scale of 30-50 units SQ BID based on BSG. Patient received 50 units this AM. * Novolog CR tightened slightly this AM since patient was on IV Solu medrol 40 mg BID. This is now transitioned to PO Prednisone 40 mg daily starting tomorrow. * Pre-lunch BSG shaila to 357 mg/dl. This is most likely steroid induced. Novolog parameters tightened further at lunch due to high BSG but then loosened at dinner since solu-medrol discontinued. * Also gave patient IV Regular insulin 10 units push x1 for the BSG above 300 mg/dl at lunch. * Above interventions should help BSG trend down by dinnertime. Background 05/03/21: * 71 yo M with T2DM well controlled on above regimen admitted for ILD exacerbation and possible UTI and scheduled to start steroids this evening * Will transition to formulary long-acting Lantus. Home dose OK tonight as steroids are starting, may also require increase * Novolog at weight-based moderate to severe stress estimate for now as steroids have not yet started. Will likely require tightening tomorrow PLAN FOR INPATIENT GLYCEMIC CONTROL: * Basal insulin - add NPH, adjust Lantus parameters * Lantus 30-50 units SQ BID, depending on BSG * NPH 40 units SC daily with prednisone 40 mg (~0.4 unit/kg) * Bolus insulin - tighten * NovoLog per scale ACHS or Q6hrs while NPO * Goal Range: Low 110 mg/dL - High 140 mg/dL * Correction Factor: 12 mg/dL/unit * Nutritional / Prandial insulin per carb ratio of 1 unit per 4 grams CHO consumed
[2021-05-05] MEDS: FENOFIBRATE NANOCRYSTALLIZED 48 MG TABLET PO SCH (11:38)
--- NOTE | 2021-05-05 13:50 | Discharge Summary ---
Date of Service May 05, 2021 Admission HPI Per Admitting Provider 71yo M w/ hx of ILD, mitral valve replacement, atrial fibrillation, and DM who presents with increased shortness of breath and dyspnea on exertion x 3 days. The patient has a baseline fairly low quality of health due to his medical issues. At baseline, he reports he can move around his house without too much shortness of breath. He gives examples of moving from the bathroom and back to bed and getting to the kitchen to get lunch. He reports he doesn't get out much and generally isn't very active. However, over the last 3 days, he has gotten consistently worse to the point where even moving around the house causes significant shortness of breath. As an example, he notes that when he gets up in the mornings, he can barely make it to the commode before getting very winded and having to rest. He feels he is about 50% exercise capacity compared to 1 week ago. He denies any cough or mucus production. No fevers/chills, no nausea/vomiting, no abdominal pain, no chest pain, no palpitations. He reports that he is using his Arnuity inhalers "most of the time," but doesn't feel like it does anything for him, so he just kind of takes it whenever he thinks about it during the day. He does not use his albuterol inhaler because he doesn't cough. Principal Diagnosis Exacerbation of ILD UTI--E. coli Discharge Exam GENERAL: 71 yo well-developed, well-nourished elderly WM. NAD. LUNGS: Nonlabored. Fine bibasilar crackles appreciated. No wheezes. CARDIOVASCULAR: Regular rate and rhythm. No M/G/R. ABDOMEN: Soft, non-tender and non-distended. BS normal x 4 quad. EXTREMITIES: No edema. Non-tender. Peripheral pulses +2/4. NEUROLOGIC: A&O x3. PSYCHIATRIC: Cooperative. Appropriate mood and affect. SKIN: Warm, dry, intact. No rashes or lesions. Discharge Data Allergies Allergy/AdvReac Type Severity Reaction Status Date / Time dulaglutide [From Trulicity] AdvReac Intermediate Diarrhea , Verified 05/03/21 12:09 nausea Consultations 05/03/21 14:22 ED Decision to Admit Stat 05/03/21 16:58 Consult Pulmonology Routine Ordered Studies Chest X-Ray 05/03/21 10:36 XR chest 1V portable CLINICAL HISTORY: Shortness of breath. COMPARISON STUDY: Chest radiograph February 04, 2021. FINDINGS: No pneumothorax or pleural effusion is present. Cardiomegaly is unchanged. Prosthetic mitral valve is in place. No evidence for pulmonary edema. Right lower lung opacity is unchanged and favors scarring. No consolidation to suggest pneumonia. No change in appearance of the chest. IMPRESSION: No acute cardiopulmonary findings. No change in appearance of the chest. ACT 112: Negative or not required by law. Electronically signed by: Mc Concepcion M.D. 05/03/2021 10:[address] 05/03/21 14:42 CT OF THE CHEST WITHOUT IV CONTRAST CLINICAL HISTORY: ILD exacerbation COMPARISON STUDY: Chest CT March 12, 2020. Chest radiograph performed earlier today. CT DOSE: 840.09 mGy.cm TECHNIQUE: Axial images of the chest were obtained without IV contrast. Images were reviewed in the axial, sagittal, and coronal planes. IV contrast was not administered for this examination. Automated exposure control was utilized for the study. A dose lowering technique was utilized adhering to the principles of ALARA. FINDINGS: No enlarged axillary, mediastinal or hilar lymph nodes are present. Cardiomegaly is unchanged. There is a prosthetic mitral valve. No pericardial effusion is present. Mild herniation of the lung between the right third and fourth ribs is unchanged. There is no pneumothorax or pleural effusion. Central airways are patent. Mild bronchiectasis is most evident within the right middle and right lower lobe. This is similar to prior exam. Subpleural reticulation and groundglass opacities are again noted. These were present on prior exam. Subpleural groundglass opacity reticulation with bronchiectasis within the right middle lobe is unchanged. This may reflect scarring or interstitial lung disease. No superimposed consolidation is present. No suspicious pulmonary nodules are present. Visualized portions of the upper abdomen are unremarkable on this unenhanced exam. IMPRESSION: 1. No acute process within the chest. 2. No change in subpleural groundglass opacities with reticulation since prior exam. This favors interstitial lung disease with a NSIP pattern. No superimposed consolidation. 3. Cardiomegaly. ACT 112: Negative or not required by law. Electronically signed by: Mc Concepcion M.D. 05/03/2021 3:28 PM Spec: [id number] Collected: 05/03/21-1230 Received: 05/03/21-[address]: Curtis Boateng M.D. Source: Urine,Clean Catch OV Order: Ordered: Urine Culture Procedure Result Verified Site Urine Culture Final 05/05/21 Organism 1 Escherichia coli [place] Count >100,000 CFU/ml Sens Sensitivities to Follow +Mix Urine Plus Moderate Counts of Other Mixed [place]o E coli RX M.I.C. --- --------- Amox/Clav S <=8/4 Ampicillin S <=8 Amp/Sul S <=8/4 Cefazolin S <=2 Cefepime S <=2 Ceftriaxone S <=1 Ciprofloxacin R >2 Ertapenem S <=0.5 Gentamicin S <=4 Levofloxacin R >4 Meropenem S <=1 Nitrofurantoin S <=32 Tobramycin S <=4 Trimeth/Sulfa S <=2/38 Pip/Tazo S <=16 S = SENSITIVE I = INTERMEDIATE R = RESISTANT Hospital Course (1) Interstitial lung disease: ?acute exacerbation. He feels he is ~50% of his usual exercise capacity. No fevers/chills or cough to indicate pneumonia. - Hospitalized, started on IV steroids, nebs, and O2 - VBG not remarkable, procal 0.55, and BNP 122 - CT chest w/o acute changes to suggest pneumonia - Pulmonology consulted, appreciate input. Transitioned Solumedrol to Prednisone. - Supplemental O2 ordered to maintain SpO2 > 90%, nursing to wean down as pulse ox has been in the high 90s - Neb treatments - Additional testing as ordered by pulm to determine cause of ILD - Now on room air today, ambulatory pulse ox ordered (2) Hypoxemia: Normally on 2L with his AVS machine at night, but none during the day. In ED, required 2L NC to maintain SpO2 > 90%. - As above - Pulmonology indicates will may need to wear O2 continuously - He has been weaned down to room air @ rest and did not demonstrate need for supplemental O2 w/ ambulation (3) Stage 3b chronic kidney disease: Baseline Cr 1.5 - 1.9. Cr is 2.15 on admission. Not officially acute kidney injury. - Hold Lasix x 1 day - Small bolus of 250 mL ordered on admit - Renal fxn stable at 2.08 today (4) Urinary tract infection: - UA suggestive of UTI. Patient's symptoms are questionable. He reports "smelly" urine for at least a week or longer. However, given elevated WBC, will treat. - Ceftriaxone 2g IV daily started empirically - Follow culture which preliminarily is positive for GN bacilli - Pt has followed with urology, has a h/o renal calculi, last note suggests that pt is likely colonized with e. coli and not to treat unless truly symptomatic - He did present with wbc of 16,000 with left shift which is why treatment was initiated - Obtain CT AP w/o contrast ordered but not completed -- uncertain as to why, however, does not NEED to be done at this time as he is clinically improving, not having further urinary complaints, no flank pain, imaging could be done as an outpatient to reassess his kidney stones, advise urology f/u - Will transition him to Cefdinir to complete 5 more days (next dose due on 05/06) for total of 7 days which also provides lung coverage (5) AF (atrial fibrillation): Permanent. HR was 70-80 in the ED. - Continue home beta-gilberto and calcium channel gilberto - On warfarin, INR subtherapeutic on 05/03 at 1.6 - Bridge w/ Lovenox today and give a one time increased dose of Coumadin 5mg on 05/04 - Repeat INR this AM is now therapeutic at 2.0 - Resume home warfarin regimen (6) Coronary atherosclerosis of [place] coronary vessel: Per cardiology note, "small apical LAD disease in 09/2018 and otherwise nonobstructive disease." Had perfusion scan on 04/04/2021 as pre-op for surgery which showed no reversible disease. Do not feel his present shortness of breath and dyspnea on exertion are anginal equivalents, but rather his lung disease. - Continue home fenofibrate, beta-gilberto, ranolazine, and statin (7) Chronic diastolic CHF (congestive heart failure): Presently appears euvolemic. - Continue home Lasix starting on 05/05 to give him a 1-day holiday for mildly elevated Cr (8) BPH with obstruction/lower urinary tract symptoms: Reports chronic LUTS that have been stable for years. - Continue home tamsulosin (9) Diabetes mellitus type 2, controlled: A1c was 6.7% this month. - Reduce home long-acting insulin from 40 units BID to 20 units BID given reduction in meal size in hospital. - Sliding scale insulin based on high insulin resistance - Glycemic pharmacy consulted - Continue home pregabalin (renally-reduce dose to 50 mg TID though from his home of 150 mg TID)--will adjust upon discharge as well - Can resume home regimen of insulin and tresiba upon d/c (10) Complex sleep apnea syndrome: Has an auto-BiPap device at home. It appears settings of 12/20/2L NC would approximate his device per the BiPap report from 09/2020. He is very compliant and uses it every night. - Use hospital device per patient preference. (11) History of mitral valve replacement: Mitral valve repair in 2007 for severe MR. - No inpatient needs At this time, patient is medically and hemodynamically stable for discharge home. We will plan to transition him to oral antibiotics to complete 5 more days for total of 7-day course. He can follow-up with urology for updated outpatient work-up regarding his kidney stones. In addition, he will be sent home with 3 more days of prednisone. He will follow-up with pulmonology and his pcp. Above plan of care has been d/w Dr. Banda who has also seen and evaluated this patient prior to discharge and is in agreement with the aforementioned. Total Time Total Time Spent Total Time Spent (In Minutes): >30 minutes Discharge Plan Discharge Items Patient Disposition: Home - Self-Care Reason For Visit: ILD EXACERBATION, UTI Discharge Diagnosis: Shortness of breath, possibly due to exacerbation of lung disease Urinary tract infection Activity: Resume your previous activity Non-emergency contact: Primary Care Provider and Master Technician Call non-emergency contact if: you have any medication questions and your symptoms worsen Follow-up/Referrals: Marco Velasco MD [Primary Care Provider] - Lloyd Gomez MD [Physician] - (1 week) Diet: Carb Consistent or DM2 Addtl Attending Provider Instructions: You been hospitalized due to shortness of breath which was felt to be related to your lung disease. You were provided nebulizer treatments as well as started on IV steroids to help reduce inflammation and open up your airways. He asked the lung doctors to see you while you were here. They have ordered some additional blood tests that are send outs and results can be discussed at your next appointment. You were transitioned to oral Prednisone (steroid) starting today (05/05). They recommend you take 40mg for one more day (05/06) followed by 20mg daily for two days then stop. Please take the steroid in the morning with food. You were also started on an antibiotic to treat a urinary tract infection. You did have a urine culture that demonstrated another urinary tract infection with the same bacteria that has been present in your urine in the past. Because you had an elevated white blood cell count on admission, it was decided to treat you with a course of antibiotics. You were given IV antibiotics while in the hospital but you will be transitioned to oral antibiotics to complete at home. Cefdinir 300mg twice daily has been sent to your pharmacy, your next dose is due on 05/06 in the morning. Please complete this medication as directed. Lastly, because of your kidney function being slightly worse than your usual numbers, we have adjusted your Lyrica. Your dose is now 50mg three times a day. Please STOP TAKING the 150mg dose. You are advised to schedule a follow up appointment with Dr. Gomez within 1 week of discharge. We also recommend you follow up with your family doctor within 1 week or sooner if needed. Also, follow up with urology due to having yet another urinary tract infection. If you have any questions or concerns, please contact your PCP's office or call the [facility] number. Pending Studies at Discharge: No Stand-Alone Forms: My [facility] Qnary, Smoking Cessation Medications and DC Order Prescriptions: New prednisone 20 mg tablet 20 mg PO DAILY Qty: 4 RF: 0 cefdinir 300 mg capsule 300 mg PO BID Qty: 10 RF: 0 pregabalin [Lyrica] 50 mg Capsule 50 mg PO TID Qty: 90 RF: 0 Continued diltiazem HCl 180 mg capsule,extended release 24hr 180 mg PO BID 90 Days Qty: 180 RF: 3 furosemide 40 mg tablet 40 mg PO QAM Qty: 90 RF: 3 insulin aspart U-100 [Novolog Flexpen U-100 Insulin] 100 unit/mL (3 mL) insulin pen 20 unit SQ TIDM Qty: 15 RF: 3 fenofibrate nanocrystallized 48 mg tablet 48 mg PO QDL Qty: 90 RF: 3 metoprolol tartrate 25 mg tablet 25 mg PO BID Qty: 180 RF: 3 warfarin 3 mg tablet 3 mg PO HS Qty: 90 RF: 3 rosuvastatin [Crestor] 20 mg tablet 20 mg PO QAM Qty: 90 RF: 3 Tresiba FlexTouch U-200 200 unit/mL (3 mL) insulin pen 40 unit subcut BID Qty: 9 RF: 3 tramadol 50 mg tablet 50 mg PO Q8H PRN (Reason: pain) Qty: 180 RF: 3 multivitamin [Daily Multi-Vitamin] Tablet 1 tab PO QAM RF: 0 albuterol sulfate 90 mcg/actuation HFA aerosol inhaler 1 - 2 puff inhalation Q4H PRN (Reason: shortness of breath) Qty: 18 RF: 3 ranolazine [Ranexa] 500 mg tablet extended release 12 hr 500 mg PO BID Qty: 60 RF: 5 omega-3 fatty acids 1,250 mg capsule 1,250 mg PO QAM RF: 0 cholecalciferol (vitamin D3) 1,000 unit (25 mcg) tablet 1,000 units PO QDL RF: 0 cyanocobalamin (vitamin B-12) 100 mcg tablet 100 mcg PO 3XWK RF: 0 tamsulosin 0.4 mg capsule 0.4 mg PO QAM RF: 0 Arnuity Ellipta 50 mcg/actuation blister with device 1 inh INH QAM RF: 0 Discontinued pregabalin [Lyrica] 150 mg capsule 150 mg PO TID Qty: 270 RF: 3 Discharge Orders: Discharge Order (Routine); Ordered 05/05/21 Ordered By: Britt Aguilar Admission Data Admit Date/Time: 05/03/21 14:42 Attending Provider: Kal Banda Admit Provider: Donald Diane Primary Care Provider: Marco Velasco Other Providers: Donald Diane ; Kwadwo Bravo Other Interventions: Discharge Summary Assessment (RN) Last Done: 05/05/21 15:31 Supervising Physician Co-Signing Physician Notes Case discussed with YVON Aguilar, agree with plan as above. 71-year-old male with a history of A. fib, DM, mitral valve treated for shortness of breath and dyspnea on exertion for 3 days. Interstitial lung disease was likely steroids during admission. Transition to oral prednisone with short taper. UTI tr eatment with short course as above. Will have follow-up to pulmonology within 1 week for ILD. At time of bedside visit doing well in no acute distress, does have bilateral crackles most appreciated in the bases without wheezes/rhonchi and moderate air movement, heart rate is regular. Coding Level of Care Code D/C DAY MANAGEMENT >30 MINS Diagnoses Interstitial lung disease J84.9 Hypoxemia R09.02 Stage 3b chronic kidney disease N18.32 Urinary tract infection N39.0 AF (atrial fibrillation) I48.91 Coronary atherosclerosis of [place] coronary vessel I25.10 Associated angina: without angina [place] vs. transplanted heart: [place] heart Chronic diastolic CHF (congestive heart failure) I50.32 BPH with obstruction/lower urinary tract symptoms N40.1; N13.8 Diabetes mellitus type 2, controlled E11.9 Complex sleep apnea syndrome G47.31 History of mitral valve replacement Z95.2
[2021-05-05] MEDS ORDERED: WARFARIN SOD 1 MG TAB PO SCH (16:00)
[2021-05-05] MEDS ORDERED: WARFARIN SOD 0.5 MG TAB PO SCH (16:00)
[2021-05-06] MEDS ORDERED: INSULIN ASPART PER UNIT SC SCH (02:00)
[2021-05-06 17:37] LABS: JO 1 Antibody <1.0 NEG AI (<1.0 NEG)
== END 2021-05-05 15:55 | disposition home or self-care (01) ==
LOC: ED 10:28 → 3E 14:42 → SUATTDRO 14:42 → INTOOBSV 14:42 → 3E 16:39

== ENCOUNTER 2021-09-12 07:55 | Observation (INO) ==
--- NOTE | 2021-06-10 16:17 | Anesthesiology Consultation ---
Date of Service June 10, 2021 Assessment & Plan (1) Encounter for pre-operative examination: - COVID screening: Per assessment on 06/10: No known COVID-19 positive contacts or current COVID-19 related symptoms. Travel screen negative. Patient vaccinated Surgeon arranging preop COVID testing. Awaiting results. - Check BSG, coags AM DOS (warfarin instructions per surgeon/prescriber) - Cardiology office visit (03/06/21): presents for preoperative cardiovascular evaluation prior to right total knee arthroplasty with Dr. Gibbs. Patient's biggest complaint today is gradual worsening of his breathing. He also notes atypical chest pain. He does not appear significantly hypervolemic on examination today, and recent CXR showed no acute chest disease. Echo in September showed normal LV systolic function with no significant valvular abnormality and moderate pulmonary hypertension. He remains in atrial fibrillation, but his rate is well controlled. Patient discussed with Dr. Naranjo, and at this point, recommend a pharmacologic nuclear stress test to further evaluate for myocardial ischemia prior to surgery. Will also trial Ranexa 500 mg BID to see if he notes any symptomatic improvement with additional antianginal therapy." Stress test done 03/2021 and reviewed by cardio > Per cardio addendum (04/07/21): "Based on the results, patient is at an acceptable risk to proceed with knee surgery without any additional cardiovascular testing or intervention." - PCP office visit (04/29/21): "patient's emergency room visit, hospitalization consult, discharge summary were reviewed.. Interstitial lung disease: ?acute exacerbation. He feels he is ~50% of his usual exercise capacity. No fevers/chills or cough to indicate pneumonia... Hospitalized, started on IV steroids, nebs, and O2.. CT chest w/o acute changes to suggest pneumonia.. Stage 3b chronic kidney disease: Baseline Cr 1.5 - 1.9. Cr is 2.15 on admission. Not officially acute kidney injury.. Renal fxn stable at 2.08 today.. Urinary tract infection.. UA suggestive of UTI. Patient's symptoms are questionable. He reports "smelly" urine for at least a week or longer. However, given elevated WBC, will treat.. Ceftriaxone 2g IV daily started empirically.. Pt has followed with urology, has a h/o renal calculi, last note suggests that pt is likely colonized with e. coli and not to treat unless truly symptomatic." - Pulmonary office visit (05/30/21): "Complex sleep disordered breathing: Continue ASV with oxygen bleed 3 L/min This is medically necessary.. Interstitial lung disease: Unclear etiology however agree that the patient's comorbid medical conditions would preclude invasive evaluation including bronchoscopy or biopsy at this point time. I do not see evidence of a flare during his recent hospitalization as his CT scan actually looks better than prior imaging. He is scheduled to undergo PFTs in about 3 to 4 months.. Dyspnea on exertion: Multifactorial and difficult to ascertain how much is contributed by obesity, cardiac disease, deconditioning, interstitial lung disease, and pulmonary hypertension. Patient feels that he is at his baseline.. Suspect the patient has secondary pulmonary hypertension due to elevated end- diastolic pressure, obesity, restrictive lung disease, hypoxemia, and sleep disordered breathing: Would not recommend consideration for any pulmonary vasodilators at this point time. If the patient requires additional evaluation, would recommend that he be evaluated at a pulmonary [facility] either [place] or [facility] given his complex medical history." - Per review of records, patient previously seen by vascular (Dr. Keller). Aorta ultrasound 02/01/18 showed Aneurysmal dilatation up to 3.2 cm of the distal aortic dissection. The false lumen is patent. The appearance is unchanged from prior CT. He did not have f/u appt that was initially recommended by vascular at that time. This surgery was originally scheduled for 03/14/21. At that time[facility] Recommendation was made for patient to have vascular evaluation prior to surgery. Patient has not since had vascular evaluation and per vascular (Dr. Keller), they are unable to see him prior to surgery. PAT placement secretary informed Kely at surgeon's office that surgery will need to be postponed until vascular evaluation/updated AAA imaging completed (Dr. Keller). Chart Review Chart Review: Patient NOT seen in Pre Admission Testing History Surgery Operation Date: 06/13/21 12:45 Proposed Procedures p Right Total Knee Arthroplasty - Miquel Gibbs DO Height/Weight Height: 5 ft 6 in Weight: 106.594 kg Allergies Allergy/AdvReac Type Severity Reaction Status Date / Time dulaglutide [From Trulicity] AdvReac Intermediate Diarrhea , Verified 06/10/21 15:05 nausea Medications Home Medications Medication Instructions Recorded Confirmed Last Taken cholecalciferol (vitamin D3) 25 1,000 units PO QDL tab 10/04/18 06/10/21 07/10/20 mcg (1,000 unit) tablet albuterol sulfate 90 mcg/actuation 1 - 2 puff INHALATION Q4H PRN #18 g 12/27/19 06/10/21 Unknown aerosol inhaler cyanocobalamin (vitamin B-12) 100 100 mcg PO 3XWK tab 12/27/19 06/10/21 07/10/20 mcg tablet multivitamin (Daily Multi-Vitamin) 1 tab PO QAM 03/15/20 06/10/21 05/03/21 diltiazem HCl 180 mg 180 mg PO BID 90 Days #180 cap 09/23/20 06/10/21 05/03/21 capsule,extended release 24 hr furosemide 40 mg tablet 40 mg PO QAM #90 tab 10/01/20 06/10/21 05/03/21 fenofibrate nanocrystallized 48 mg 48 mg PO QDL #90 tab 11/14/20 06/10/21 Unknown tablet metoprolol tartrate 25 mg tablet 25 mg PO BID #180 tab 11/14/20 06/10/21 05/03/21 warfarin 3 mg tablet 3 mg PO HS #90 tab 12/23/20 06/10/21 05/02/21 tamsulosin 0.4 mg capsule 0.4 mg PO QAM 01/30/21 06/10/21 05/03/21 ranolazine 500 mg tablet,extended 500 mg PO BID #60 tab 03/06/21 06/10/21 05/03/21 release,12 hr (Ranexa) rosuvastatin 20 mg tablet (Crestor) 20 mg PO QAM #90 tab 03/21/21 06/10/21 05/03/21 tramadol 50 mg tablet 50 mg PO Q8H PRN #180 tab 04/15/21 06/10/21 Unknown fluticasone furoate 50 1 inh INH QAM 05/03/21 06/10/21 05/03/21 mcg/actuation blister powder for inhalation (Arnuity Ellipta) pregabalin 50 mg capsule (Lyrica) 100 mg PO TID #90 cap 06/05/21 06/10/21 Unknown insulin aspart U-100 100 unit/mL 20 unit SQ TIDM #15 ml 06/06/21 06/10/21 Unknown (3 mL) subcutaneous pen (Novolog Flexpen U-100 Insulin aspart) insulin degludec 100 unit/mL 40 unit SUBCUT BID 06/10/21 06/10/21 Unknown subcutaneous solution (Tresiba U-100 Insulin) omega 1-hpw-abd-fish oil 1,000 mg 1 cap PO QAM 06/10/21 06/10/21 Unknown (120 mg-180 mg) capsule (Fish Oil) Past Medical History Medical History (Updated 06/10/21 @ 16:13 by Montse Mcgee) Abdominal aortic aneurysm dissection Annual surveillance (stable), monitored by Dr. 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 follows with [facility] Baseline creatinine 1.7-2.0 per nephrology notes Complex sleep apnea syndrome ASV machine with 2L supplemental oxygen nightly-compliant, follows with [facility] Congestive heart failure Coronary atherosclerosis of [place] coronary vessel Diabetic nephropathy associated with type 2 diabetes mellitus Diabetic polyneuropathy B/L LE Dyslipidemia Gastroparesis History of anemia History of blood transfusion during mitral valve repair per pt Hypertension controlled, stable per pt Interstitial lung disease monitoring per [facility] Kidney stones Lumbar back pain Pulmonary hypertension Moderate, "suspected secondary to elevated end-diastolic pressure, obesity, restrictive lung disease, hypoxemia and sleep disordered breathing: Would not recommend consideration for any pulmonary vasodilators at this point" follows with [facility] Restrictive lung disease Stroke 2019, embolic, 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 CVA post cardiac catheterization, mild residual aphasia Past Family History Family History Mother Colon cancer Diabetes Grandmother Multiple sclerosis Father Diabetes Coronary heart disease Myocardial infarction Grandfather Stroke Sister Diabetes Hypertension Brother Diabetes Hypertension Son Depression Hypertension Other No family history of adverse response to anesthesia Denies family history of Ovarian cancer Prostate cancer Breast cancer Past Surgical History Surgical History History of cardiac cath Most recent 2018 > no stents History of colonoscopy History of cystoscopy Left Ureteronephroscopy 08/24/2019: Grade 3 view, MAC#3.0, ETT#8.0. No issues per anesthesia postop progress note. History of mitral valve replacement IZABELA DIAS History of mitral valve replacement History of shoulder surgery RT/LEFT History of surgical removal of pilonidal cyst History of tooth extraction History of total left knee replacement Social History Smoking Status: Never smoker Do You Dip or Chew Tobacco: No Hx Alcohol Use: No Hx Substance Use: No substance use type: does not use Lab Results Anesthesia Preop Results Results Anesthesia Widget: WBC 11.61 K/uL (4.8-10.8) H 05/04/21 Hgb 14.9 g/dL (14.0-18.0) 05/04/21 Hct 43.1 % (42-52) 05/04/21 Plt 216 K/uL (130-400) 05/04/21 Na 137 mmol/L (136-145) 05/15/21 K 4.1 mmol/L (3.5-5.1) 05/15/21 Cl 102 mmol/L (98-107) 05/15/21 CO2 27 mmol/L (21-32) 05/15/21 BUN 30 mg/dl (6-23) H 05/15/21 Creat 1.90 mg/dl (0.6-1.4) H 05/15/21 Glucose Level 216 mg/dl (70-99(Fasting)) H 05/15/21 PT 20.1 Seconds (9.0-12.0) H 05/05/21 PTT 36.4 Seconds (21.0-31.0) H 05/03/21 INR 2.0 (0.9-1.1) H 05/05/21 TSH 1.156 uIu/ml (0.300-4.500) 04/30/21 HA1c 6.7 % (4.5-5.6) H 04/30/21 Urine Color Dark Yellow 05/03/21 Urine Appearance Turbid (Clear) A 05/03/21 Urine pH 5.5 (4.5-7.5) 05/03/21 Urine Specific [place] 1.017 (1.000-1.030) 05/03/21 Urine Protein 2+ (Negative) H 05/03/21 Urine Glucose (UA) Negative (Negative) 05/03/21 Urine Ketones Negative (Negative) 05/03/21 Urine Blood 2+ (Negative) H 05/03/21 Urine Nitrite Negative (Negative) 05/03/21 Urine Bilirubin Negative (Negative) 05/03/21 Urine Urobilinogen Negative (Negative) 05/03/21 Urine Leukocyte Esterase 3+ (Negative) H 05/03/21 Urine WBC (Auto) >30 /hpf (0-5) H 05/03/21 Urine RBC (Auto) 10-30 /hpf (0-4) H 05/03/21 Urine Hyaline Casts (Auto) 1-5 /lpf (0-5) 05/03/21 Urine Epithelial Cells (Auto) 20-30 /lpf (0-5) H 05/03/21 Urine Bacteria (Auto) 4+ (Negative) H 05/03/21 SARS-CoV-2, RNA, NAAT NEGATIVE (NEGATIVE) 05/03/21 Testing Laboratory Results 05/03/21 URINE CULTURE E. COLI (test done during [facility] admission. Per discharge summary, "Pt has followed with urology, has a h/o renal calculi, last note suggests that pt is likely colonized with e. coli and not to treat unless truly symptomatic") Electrocardiogram Date: 05/03/21 A. fib with aberrant conduction at 89bpm. Possible inferior infarct, age undetermined. Compared to 02/04/21 EKG, NS TWA now evident in lateral leads. Chest X-Ray Date: 05/03/21 FINDINGS: No pneumothorax or pleural effusion is present. Cardiomegaly is unchanged. Prosthetic mitral valve is in place. No evidence for pulmonary edema. Right lower lung opacity is unchanged and favors scarring. No consolidation to suggest pneumonia. No change in appearance of the chest. IMPRESSION: No acute cardiopulmonary findings. No change in appearance of the chest. Echocardiogram Date: 09/18/20 EF 50-55%. Mild cLVH. Borderline RVD. Mild mitral stenosis post annuloplasty ring. Mild TR. Moderate pulm HTN (Est PASP > 50mmhg). Abnormal paradoxical septal motion consistent with post-operative status. Stress Test Date: 04/04/21 Type: nuclear Negative myocardial perfusion study for significant Lexiscan induced ischemia. Small, apical fixed perfusion defect consistent with very distal LAD distribution infarct. Inferior/inferolateral perfusion defect with normal wall motion, likely diaphragmatic attenuation. Normal LV size and function. LVEF 55% with paradoxical septal motion. Mild apical hypokinesis. Right ventricular hypertrophy. Non-diagnostic stress ECG due to inability reach target heart rate. Cardiac Catheterization Date: 10/10/18 Severe 80-90% apical LAD disease. Moderate non-obstructive proximal-mid LAD (FFR 0.83). Mild-moderate multivessel disease- 30-40% proximal OM1, mid circumflex, mid RCA. Borderline left sided filling pressures. Borderline pulmonary hypertension. Preserved cardiac output (Doreen 5.3). Recommendations:Feel patient's dyspnea likely multifactorial in the setting of lung disease, HFpEF, AF and small vessel CAD. Distal LAD disease is low risk involving small vessel at the apex. Recommend trial of additional antianginal therapy, start Imdur. If persistent symptoms could consider POBA +/- stent to LAD. Continue maintenance lasix. Will consider AF cardioversion as an outpatient. Other Testing Chest CT (05/03/21): No acute process within the chest. No change in subpleural groundglass opacities with reticulation since prior exam. This favors interstitial lung disease with a NSIP pattern. No superimposed consolidation. Cardiomegaly.
--- NOTE | 2021-08-15 13:43 | PAT Medication Instructions ---
Medication Instructions Date of Service August 15, 2021 Home Medications Medication Instructions Recorded albuterol sulfate 90 mcg/actuation 1 - 2 puff INHALATION Q4H PRN #18 g 12/27/19 aerosol inhaler diltiazem HCl 180 mg 180 mg PO BID 90 Days #180 cap 09/23/20 capsule,extended release 24 hr furosemide 40 mg tablet 40 mg PO QAM #90 tab 10/01/20 fenofibrate nanocrystallized 48 mg 48 mg PO QDL #90 tab 11/14/20 tablet metoprolol tartrate 25 mg tablet 25 mg PO BID #180 tab 11/14/20 warfarin 3 mg tablet 3 mg PO HS #90 tab 12/23/20 rosuvastatin 20 mg tablet (Crestor) 20 mg PO QAM #90 tab 03/21/21 tramadol 50 mg tablet 50 mg PO Q8H PRN #180 tab 04/15/21 pregabalin 50 mg capsule (Lyrica) 100 mg PO TID #90 cap 06/05/21 insulin aspart U-100 100 unit/mL 20 unit SQ TIDM #15 ml 06/06/21 (3 mL) subcutaneous pen (Novolog Flexpen U-100 Insulin aspart) ranolazine 1,000 mg 1,000 mg PO Q12H #60 tab 07/11/21 tablet,extended release,12 hr cholecalciferol (vitamin D3) 25 mcg (1,000 unit) tablet 1,000 units PO QDL albuterol sulfate 90 mcg/actuation aerosol inhaler 1 - 2 puff INHALATION Q4H PRN cyanocobalamin (vitamin B-12) 100 mcg tablet 100 mcg PO 3XWK multivitamin (Daily Multi-Vitamin) 1 tab PO QAM diltiazem HCl 180 mg capsule,extended release 24 hr 180 mg PO BID furosemide 40 mg tablet 40 mg PO QAM fenofibrate nanocrystallized 48 mg tablet 48 mg PO QDL metoprolol tartrate 25 mg tablet 25 mg PO BID warfarin 3 mg tablet 3 mg PO HS tamsulosin 0.4 mg capsule 0.4 mg PO QAM rosuvastatin 20 mg tablet (Crestor) 20 mg PO QAM tramadol 50 mg tablet 50 mg PO Q8H PRN fluticasone furoate 50 mcg/actuation blister powder for inhalation (Arnuity Ellipta) 1 inh INH QAM pregabalin 50 mg capsule (Lyrica) 100 mg PO TID insulin aspart U-100 100 unit/mL (3 mL) subcutaneous pen (Novolog Flexpen U-100 Insulin aspart) 20 unit SQ TIDM insulin degludec 100 unit/mL subcutaneous solution (Tresiba U-100 Insulin) 40 unit SUBCUT BID omega 3-czm-csf-fish oil 1,000 mg (120 mg-180 mg) capsule (Fish Oil) 1 cap PO QAM ranolazine 1,000 mg tablet,extended release,12 hr 1,000 mg PO Q12H phenazopyridine 95 mg tablet 95 mg PO QAM ASK your prescriber and surgeon warfarin 3 mg tablet 3 mg PO HS STOP taking 2 weeks before surgery (or as soon as possible if surgery is within 2 weeks) omega 0-isb-rfp-fish oil 1,000 mg (120 mg-180 mg) capsule (Fish Oil) 1 cap PO QAM STOP taking 48 hours before surgery fenofibrate nanocrystallized 48 mg tablet 48 mg PO QDL DO NOT take the morning of surgery cholecalciferol (vitamin D3) 25 mcg (1,000 unit) tablet 1,000 units PO QDL cyanocobalamin (vitamin B-12) 100 mcg tablet 100 mcg PO 3XWK multivitamin (Daily Multi-Vitamin) 1 tab PO QAM furosemide 40 mg tablet 40 mg PO QAM insulin aspart U-100 100 unit/mL (3 mL) subcutaneous pen (Novolog Flexpen U-100 Insulin aspart) 20 unit SQ TIDM Take morning of surgery With a small sip of water, OTHERWISE NOTHING TO EAT OR DRINK AFTER MIDNIGHT: albuterol sulfate 90 mcg/actuation aerosol inhaler 1 - 2 puff INHALATION Q4H PRN (use if needed; please bring rescue inhaler with you to hospital day of surgery if possible) diltiazem HCl 180 mg capsule,extended release 24 hr 180 mg PO BID metoprolol tartrate 25 mg tablet 25 mg PO BID tamsulosin 0.4 mg capsule 0.4 mg PO QAM rosuvastatin 20 mg tablet (Crestor) 20 mg PO QAM tramadol 50 mg tablet 50 mg PO Q8H PRN (if needed) fluticasone furoate 50 mcg/actuation blister powder for inhalation (Arnuity Ellipta) 1 inh INH QAM pregabalin 50 mg capsule (Lyrica) 100 mg PO TID ranolazine 1,000 mg tablet,extended release,12 hr 1,000 mg PO Q12H phenazopyridine 95 mg tablet 95 mg PO QAM Take evening before surgery albuterol sulfate 90 mcg/actuation aerosol inhaler 1 - 2 puff INHALATION Q4H PRN (if needed) diltiazem HCl 180 mg capsule,extended release 24 hr 180 mg PO BID metoprolol tartrate 25 mg tablet 25 mg PO BID tramadol 50 mg tablet 50 mg PO Q8H PRN (if needed) pregabalin 50 mg capsule (Lyrica) 100 mg PO TID insulin aspart U-100 100 unit/mL (3 mL) subcutaneous pen (Novolog Flexpen U-100 Insulin aspart) 20 unit SQ TIDM insulin degludec 100 unit/mL subcutaneous solution (Tresiba U-100 Insulin) 40 unit SUBCUT BID ranolazine 1,000 mg tablet,extended release,12 hr 1,000 mg PO Q12H Insulin Dependent Diabetic Patients * Test your blood sugar the morning of surgery * If Blood Sugar is GREATER THAN 150, take HALF of your regular dose of: insulin degludec 100 unit/mL subcutaneous solution (Tresiba U-100 Insulin) take 20 units * If Blood Sugar is LESS THAN 150, DO NOT TAKE ANY: insulin degludec 100 unit/mL subcutaneous solution (Tresiba U-100 Insulin) Other Notes If you have any questions please call us at [phone] or [phone] or [phone] or [phone]
--- NOTE | 2021-08-19 12:54 | Anesthesiology Consultation ---
Date of Service August 19, 2021 Assessment & Plan (1) Encounter for pre-operative examination: - check BSG and coags am DOS. - Pt reports subjective mild increase in dyspnea on exertion since COVID illness 07/2021, denies further worsening since illness but notes is not back to baseline; JOLLY at baseline is significant as well to record review. Complex case discussed in detail with Dr. Rodriguez who advised contacting patient in 1 week to assess status and if not at baseline, to send note to pulmonology if anything further is needed prior to surgery. Coags to be repeated DOS. Pt was advised at [facility] appt to notify pulmonology from general standpoint as well. He verbalized understanding and denied questions or concerns. - ER 07/18/21 [facility]: "...Vital signs stable. Labs show INR 1.5. Creatinine at baseline...COVID-positive. Imaging shows no traumatic injury. Chest x-ray negative...to seek outpatient follow up..." - cardiology 07/02/21 [facility]: "...Coronary atherosclerosis of [place] coronary vessel- small apical LAD disease and otherwise nonobstructive, low risk stress 03/2021, medical management...CVA-- left frontal CVA post cardiac catheterization, minimal residual symptoms...Persistent atrial fibrillationrate controlled, on anticoagulation...Chronic diastolic CHFLasix 40 mg daily...Post mitral valve repair for severe mitral regurgitation 2007--mild MS, trace MR on echo 09/2020... Chronic infrarenal aortic dissection--found incidentally, seen by Dr. Keller...CALOS/interstitial lung diseasefollowed by Dr. Gomez...Stage IV CKDstable followed by Dr. Roberts...Pulmonary hypertension>50 mmHg on echo 09/2020...today appears euvolemic and remains in rate controlled atrial fibrillation...small amount of apical ischemia on stress test and will try increasing Ranexa from 500 to 1000 mg twice daily. Continue current diuretic...right heart cath to assess filling pressures, pulmonary hypertension. Suspect pH group 2/3 and unlikely to be a candidate for PAH therapy but if severe precapillary PH would consider referring to pulm hypertension specialist for additional opinion..." - vascular surgery 06/17/21: "...still reports shortness of breath as exertional dyspnea that is getting worse...being evaluated for right total knee replacement...ultrasound was performed which demonstrated infrarenal aortic dissection extending into right common iliac and right proximal mid external iliac arteries. No hemodynamic significant stenosis observed. No aneurysmal degeneration...From our standpoint, there is no contraindication to proceeding with surgery...see him back in 1 year..." -Cardiology office visit (03/06/21): presents for preoperative cardiovascular evaluation prior to right total knee arthroplasty with Dr. Gibbs...gradual worsening of his breathing...atypical chest pain...does not appear significantly hypervolemic on examination today, and recent CXR showed no acute chest disease. Echo in September showed normal LV systolic function with no significant valvular abnormality and moderate pulmonary hypertension...in atrial fibrillation, but his rate is well controlled...recommend a pharmacologic nuclear stress test to further evaluate for myocardial ischemia prior to surgery...trial Ranexa 500 mg BID to see if he notes any symptomatic improvement with additional antianginal therapy." Stress test done 03/2021 and reviewed by cardio >Per cardio addendum (04/07/21): "Based on the results, patient is at anacceptable risk to proceed with knee surgery without any additional cardiovascular testing or intervention ." -Pulmonary office visit (05/30/21): "Complex sleep disordered breathing: Continue ASV with oxygen bleed 3 L/min...Interstitial lung disease: Unclear etiology however agree that the patient's comorbid medical conditions would preclude invasive evaluation including bronchoscopy or biopsy at this point time. I do not see evidence of a flare during his recent hospitalization as his CT scan actually looks better than prior imaging...PFTs in about 3 to 4 months..Dyspnea on exertion: Multifactorialand difficult to ascertain how much is contributed by obesity, cardiac disease, deconditioning, interstitial lung disease, and pulmonary hypertension. Patient feels that he isat his baseline.. Suspect the patient has secondary pulmonary hypertension due to elevated end-diastolic pressure, obesity, restrictive lung disease, hypoxemia, and sleep disordered breathing:Would not recommend consideration for any pulmonary vasodilators at this point time.If the patient requires additional evaluation, would recommend that he be evaluated at a pulmonary [facility] either [facility] or [facility] given his complex medical history." - Surgery previously re-scheduled pending vascular surgery and cardiology clearances. - COVID screening: Per assessment on 08/19/2021: Travel screen negative, no known COVID-19 positive contacts or current COVID-19 related symptoms in past 2 weeks. Pt vaccinated. Surgeon arranging preop COVID testing, scheduled 09/10/2021. Awaiting results. Chart Review Chart Review: Pending: Refer to Additional Notes / Consult section and Patient seen in Pre Admission Testing Teaching & Discussion Pre-Anesthesia Teaching/Discussion Notes: Instructed NPO after midnight before surgery, except medications with 15 cc of water. Medication instructions provided according to the PAT guidelines. History Surgery Operation Date: 09/12/21 11:30 Proposed Procedures p Right Total Knee Arthroplasty - Miquel Gibbs, Height/Weight Height: 5 ft 6 in Weight: 111.3 kg Allergies Allergy/AdvReac Type Severity Reaction Status Date / Time dulaglutide [[facility]] AdvReac Intermediate Diarrhea , Verified 08/14/21 11:53 nausea Medications Home Medications Medication Instructions Recorded Confirmed Last Taken cholecalciferol (vitamin D3) 25 1,000 units PO QDL tab 10/04/18 08/14/21 07/10/20 mcg (1,000 unit) tablet albuterol sulfate 90 mcg/actuation 1 - 2 puff INHALATION Q4H PRN #18 g 12/27/19 08/14/21 Unknown aerosol inhaler cyanocobalamin (vitamin B-12) 100 100 mcg PO 3XWK tab 12/27/19 08/14/21 07/10/20 mcg tablet multivitamin (Daily Multi-Vitamin) 1 tab PO QAM 03/15/20 08/14/21 05/03/21 diltiazem HCl 180 mg 180 mg PO BID 90 Days #180 cap 09/23/20 08/14/21 05/03/21 capsule,extended release 24 hr furosemide 40 mg tablet 40 mg PO QAM #90 tab 10/01/20 08/14/21 05/03/21 fenofibrate nanocrystallized 48 mg 48 mg PO QDL #90 tab 11/14/20 08/14/21 Unknown tablet metoprolol tartrate 25 mg tablet 25 mg PO BID #180 tab 11/14/20 08/14/21 05/03/21 warfarin 3 mg tablet 3 mg PO HS #90 tab 11/10/0508/14/21 05/02/21 tamsulosin 0.4 mg capsule 0.4 mg PO QAM 01/30/21 08/14/21 05/03/21 rosuvastatin 20 mg tablet (Crestor) 20 mg PO QAM #90 tab 03/21/21 08/14/21 05/03/21 tramadol 50 mg tablet 50 mg PO Q8H PRN #180 tab 04/15/21 08/14/21 Unknown fluticasone furoate 50 1 inh INH QAM 05/03/21 08/14/21 05/03/21 mcg/actuation blister powder for inhalation (Arnuity Ellipta) pregabalin 50 mg capsule (Lyrica) 100 mg PO TID #90 cap 06/05/21 08/14/21 Unknown insulin aspart U-100 100 unit/mL 20 unit SQ TIDM #15 ml 06/06/21 08/14/21 Unknown (3 mL) subcutaneous pen (Novolog Flexpen U-100 Insulin aspart) insulin degludec 100 unit/mL 40 unit SUBCUT BID 06/10/21 08/14/21 Unknown subcutaneous solution (Tresiba U-100 Insulin) omega 9-del-crs-fish oil 1,000 mg 1 cap PO QAM 06/10/21 08/14/21 Unknown (120 mg-180 mg) capsule (Fish Oil) ranolazine 1,000 mg 1,000 mg PO Q12H #60 tab 07/11/21 08/14/21 Unknown tablet,extended release,12 hr phenazopyridine 95 mg tablet 95 mg PO QAM 08/14/21 08/14/21 Unknown Past Medical History Medical History (Updated 08/19/21 @ 15:13 by Kala Zheng PA-C) Abdominal aortic aneurysm dissection "infrarenal aortic dissection extending into right common iliac and right proximal mid external iliac arteries": Annual surveillance (stable), monitored by [facility] vascular surgery Atrial fibrillation 2020 follow [facility] Bilateral renal cysts 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 Moderate non-obstructive proximal-mid LAD (FFR 0.83). Mild-moderate multivessel disease- 30-40% proximal OM1, mid circumflex, mid RCA 10/12/18 cath: Distal LAD disease is low risk involving small vessel at the apex. Recommend trial of additional antianginal therapy, start Imdur. If persistent symptoms could consider POBA +/- stent to LAD. Diabetic nephropathy associated with type 2 diabetes mellitus Diabetic polyneuropathy B/L LE Dyslipidemia Gastroparesis History of anemia History of blood transfusion during mitral valve repair per pt Hypertension controlled, stable per pt Interstitial lung disease monitoring per [facility] pulmonology Lumbar back pain Pulmonary hypertension Moderate 09/2020 echo, "suspected secondary to elevated end-diastolic pressure, obesity, restrictive lung disease, hypoxemia and sleep disordered breathing: Would not recommend consideration for any pulmonary vasodilators at this point" follows with [facility]; Right heart cath 07/11/21: Normal left and right-sided filling pressures. Normal pulmonary artery pressure. Restrictive lung disease Stroke 2019, embolic, 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 CVA post cardiac catheterization, mild residual aphasia Patient denies h/o seizures, heart attack, or blood clots. Exercise / Class Metabolic Activity II 4-5 Yardwork/Stairs/Walk up hill (SOB with activity, worsened 1 month ago without further worsening per pt; denies discussing with providers) Past Family History Family History Mother Colon cancer Diabetes Grandmother Multiple sclerosis Father Diabetes Coronary heart disease Myocardial infarction Grandfather Stroke Sister Diabetes Hypertension Brother Diabetes Hypertension Son Depression Hypertension Other No family history of adverse response to anesthesia Denies family history of Ovarian cancer Prostate cancer Breast cancer Past Surgical History Surgical History (Updated 08/19/21 @ 15:01 by Kala Zheng PA-C) History of cardiac cath no stents History of colonoscopy History of cystoscopy Left Ureteronephroscopy 08/24/2019: Grade 3 view, MAC#3.0, ETT#8.0. No issues per anesthesia postop progress note. History of mitral valve replacement 2007, [facility] History of shoulder surgery RT/LEFT History of surgical removal of pilonidal cyst History of tooth extraction History of total left knee replacement Past Anesthesia History No Hx of Anesthesia Complications and No Family Hx of Anesthesia Complications History of PONV No Hx of PONV and No Hx of Motion Sickness Social History Smoking Status: Never smoker Do You Dip or Chew Tobacco: No Hx Alcohol Use: No Hx Substance Use: No substance use type: does not use Review of Systems Patient denies chest pain, fever, chills, cough, wheezing, or palpitations. Physical Exam Vital Signs Vitals BP 105/58 P 76 TEMP 98 SP02 94% on RA RESP 17 Physical Short, thick neck Limited cervical extension range of motion without pain TMD 3 finger breaths Mallampati Score 4, macroglossia Dentition: intact, several missing upper front, one chipped and loose lower back tooth; denies caps/crowns, implants or bridges Lungs: normal respiratory effort. Clear throughout to auscultation, no adventitious breath sounds Cardiac: irregularly irregular rhythm, no murmurs noted Carotid arteries: negative bruit bilat Extremities: distal lower extremities normal in appearance, nonerythematous; trace pitting edema bilat; nontender Lab Results Anesthesia Preop Results Results Anesthesia Widget: WBC 9.59 K/uL (4.8-10.8) 08/19/21 Hgb 14.0 g/dL (14.0-18.0) 08/19/21 Hct 41.4 % (42-52) L 08/19/21 Plt 218 K/uL (130-400) 08/19/21 Na 141 mmol/L (136-145) 08/19/21 K 4.5 mmol/L (3.5-5.1) 08/19/21 Cl 105 mmol/L (98-107) 08/19/21 CO2 27 mmol/L (21-32) 08/19/21 BUN 40 mg/dl (6-23) H 08/19/21 Creat 2.07 mg/dl (0.6-1.4) H 08/19/21 Glucose Level 240 mg/dl (70-99(Fasting)) H 08/19/21 POC Glucose 88 mg/dl (70-99) 07/11/21 PT 37.3 Seconds (9.0-12.0) H 08/19/21 PTT 41.1 Seconds (21.0-31.0) H 08/19/21 INR 3.8 (0.9-1.1) H 08/19/21 HA1c 6.5 % (4.5-5.6) H 08/19/21 Urine Color Yellow 07/18/21 Urine Appearance Clear (Clear) 07/18/21 Urine pH 5.0 (4.5-7.5) 07/18/21 Urine Specific [place] 1.014 (1.000-1.030) 07/18/21 Urine Protein Negative (Negative) 07/18/21 Urine Glucose (UA) Negative (Negative) 07/18/21 Urine Ketones Negative (Negative) 07/18/21 Urine Blood Trace (Negative) H 07/18/21 Urine Nitrite Negative (Negative) 07/18/21 Urine Bilirubin Negative (Negative) 07/18/21 Urine Urobilinogen Negative (Negative) 07/18/21 Urine Leukocyte Esterase Trace (Negative) H 07/18/21 Urine WBC (Auto) 1-5 /hpf (0-5) 07/18/21 Urine RBC (Auto) 10-30 /hpf (0-4) H 07/18/21 Urine Hyaline Casts (Auto) 1-5 /lpf (0-5) 07/18/21 Urine Epithelial Cells (Auto) 10-20 /lpf (0-5) H 07/18/21 Urine Bacteria (Auto) Negative (Negative) 07/18/21 Blood Type A Positive 08/19/21 Antibody Screen NEGATIVE 08/19/21 Testing Electrocardiogram Date: 07/18/21 A. fib, rate 73 bpm. Right axis deviation Non-specific intra-ventricular conduction delay No significant change vs 05/03/21 Chest X-Ray Date: 07/18/21 *1 view* No pneumothorax. No pleural effusions. The heart remains enlarged. A mitral valve ring is again noted. Mild interstitial thickening within the mid to lower lung zones, unchanged. No new focal lung consolidations. No evidence for pulmonary edema. Postoperative changes again noted within the right shoulder. IMPRESSION: No significant change compared to the prior study. No acute process. Echocardiogram Date: 09/18/20 EF 50-55%. Mild cLVH. Borderline RVD. Mild mitral stenosis post annuloplasty ring. Mild TR. Moderate pulm HTN (Est PASP > 50mmhg). Abnormal paradoxical septal motion consistent with post-operative status. Stress Test Date: 04/04/21 Type: nuclear Negative myocardial perfusion study for significant Lexiscan induced ischemia. Small, apical fixed perfusion defect consistent with very distal LAD distribution infarct. Inferior/inferolateral perfusion defect with normal wall motion, likely diaphragmatic attenuation. Normal LV size and function. LVEF 55% with paradoxical septal motion. Mild apical hypokinesis. Right ventricular hypertrophy. Non-diagnostic stress ECG due to inability reach target heart rate. Cardiac Catheterization Date: 10/10/18 Severe 80-90% apical LAD disease. Moderate non-obstructive proximal-mid LAD (FFR 0.83). Mild-moderate multivessel disease- 30-40% proximal OM1, mid circumflex, mid RCA. Borderline left sided filling pressures. Borderline pulmonary hypertension. Preserved cardiac output (Doreen 5.3). Recommendations: Feel patient's dyspnea likely multifactorial in the setting of lung disease, HFpEF, AF and small vessel CAD. Distal LAD disease is low risk involving small vessel at the apex. Recommend trial of additional antianginal therapy, start Imdur. If persistent symptoms could consider POBA +/- stent to LAD. Continue maintenance lasix. Will consider AF cardioversion as an outpa tient. 07/11/21 R heart cath PaSat 65% AoSat 89% on room air pulse ox Summary: 1. Normal left and right-sided filling pressures 2. Normal pulmonary artery pressures 3. Preserved cardiac output Recommendations: No evidence of significant pulmonary hypertension. Continue current diuretics, antianginal regimen. Cervical Spine Date: 07/18/21 CT Severe multilevel intervertebral disc space narrowing with advanced spondylitic spurring and facet arthrosis. Severe degeneration at C1-C2. No acute fracture or subluxation. Multilevel neural foraminal narrowing. The cervical soft tissues appear unremarkable. No pneumothorax identified. Groundglass densities of the lung apices. Calcified plaque of the carotid bulbs. IMPRESSION: No acute cervical spine fracture or subluxation. Other Testing Head CT 07/18/21 1. No acute intracranial findings. Old left MCA territory infarct. No change in appearance of the brain. 2. No acute calvarial fracture. Aortoiliac duplex 06/13/21 Dissection of the infrarenal abdominal aorta, right common iliac and right proximal/mid external iliac arteries Abdominal aorta if WNL No hemodynamically significant stenosis Chest CT (05/03/21): No acute process within the chest. No change in subpleural groundglass opacities with reticulation since prior exam. This favors interstitial lung disease with a NSIP pattern. No superimposed consolidation. Cardiomegaly.
[~2021-09-12 07:55] MED LIST changes: +ACETAMINOPHEN 500 MG TAB PO SCH; +BUPIVACAINE 0.5 % 5 MG/1 ML PF 10ML VIAL ONE; -CHOL1000 PO; -CYAN1DRO IM; -DILT120C51 PO; +FAMOTIDINE 20 MG TAB PO SCH; -FENO1TAB PO; -FLM4 PO; -FLVHFA110 INH; -FURO-85 PO; +GABAPENTIN 300 MG CAP PO SCH; -INSU1INJ33 SQ; +Ketorolac (*for OR use only*) 30 MG, dexAMETHasone 4 MG, KETAMINE HCL (**OR use only) 1... INFIL SCH; +LR 60ML/HR IV SCH; -NVLGI/PEN SC; -OMEG12006 PO; -PREG1CAP70 PO; +ROPIVACAINE 0.5% 5 MG/ML 30 ML VIAL ONE; -ROSU5TAB PO; +SODIUM CHLORIDE 0.9% 1000ML IV SCH; -TMB/100 PO; -TRAM-10 PO; +TRANEXAMIC ACID 1,000 MG **IV Intra-op IV SCH; +TRANEXAMIC ACID 1,000 MG **IV Pre-op IV SCH; -VITA100C2 PO; -WARF3TAB6 PO; +ceFAZolin 2000MG 2,000 MG/15 ML SYR IV SCH; +dexAMETHasone 4 MG TAB PO SCH
[2021-09-12 09:18] LABS: INR 1.1 (0.9-1.1); Partial Thromboplastin Time 27.9 Seconds (21.0-31.0); Prothrombin Time 11.9 Seconds (9.0-12.0)
[2021-09-12] MEDS ORDERED: ePHEDrine sulfate 50 MG/ML AMP IV PRN (09:26)
[2021-09-12] MEDS ORDERED: ONDANSETRON INJ 2 MG/ML 2 ML VIAL IV PRN ×2 (09:26→14:18)
[2021-09-12] MEDS ORDERED: ATROPINE SULFATE 0.1 MG/ML 10ML SYR IV PRN (09:26)
[2021-09-12] MEDS ORDERED: fentaNYL citrate 100 MCG/2 ML VIAL IV PRN (09:26)
--- NOTE | 2021-09-12 09:33 | History & Physical Bridge Note ---
Date of Service September 12, 2021 History & Physical Bridge Note I have examined the patient, reviewed the History & Physical and in the interval since the performance of the History & Physical I have noted the following changes of clinical significance: no changes noted
[2021-09-12] MEDS ORDERED: MIDAZOLAM HCL 1 MG/ML 2ML VIAL ONE (09:36)
[2021-09-12] MEDS ORDERED: fentaNYL citrate 100 MCG/2 ML VIAL ONE (09:36)
[2021-09-12] MEDS ORDERED: ORTHO JOINT ANESTHETIC ONE (09:47)
[2021-09-12] MEDS ORDERED: LIDOCAINE 2% MPF LOCAL 5 ML VIAL INFIL ONE (11:26)
[2021-09-12] MEDS ORDERED: PROPOFOL IV EMULSION 10 MG/ML 20 ML VIAL IV ONE (11:26)
--- NOTE | 2021-09-12 11:48 | Operative Report ---
PG Post Operative Report Pre & Post Diagnosis Operation Date: 09/12/21 10:35 Pre-Op Diagnosis: Degenerative Joint Disease Right Knee Post-Op Diagnosis: Degenerative Joint Disease Right Knee I identified the patient and participated in the time-out.: Yes Procedure Operation Date: 09/12/21 10:35 Actual Procedures p Right Total Knee Arthroplasty - Miquel Gibbs DO Surgeon Miquel Gibbs DO Doll Wig Maker Rooted Hair Miquel Carreno PA-C Estimated Blood Loss 20 Findings Consistent with Post-Op Diagnosis Specimens Right femoral and tibial bone Description of Procedure Implants used: I used a Blake Persona total knee arthroplasty system with a size 7 standard femur, E tibia, 31 oval patella, and a size 14 medial congruent polyethylene bearing. All components were cemented in place with Biomet cement. Vito stafford [facility] for the above procedure. He was seen in the preoperative holding area and the operative extremity was identified and signed. He was given a preoperative antibiotic, TXA, a spinal anesthetic and an adductor nerve block. He was taken back to the operating room and laid on the table in supine position. He was given basic sedation. The operative knee was then prepped and draped in sterile fashion. A timeout was done, and the patient and the operative extremity was properly identified. A midline incision was made directly over the patella. Dissection was taken down to the extensor mechanism. A subvastus arthrotomy was used. The medial retinaculum was released and the fat pad was mostly excised. The knee was flexed and the ACL, PCL, and meniscus were removed. A drill was sent down the center of the femoral canal followed by an intramedullary francia. Off that francia a distal femoral cutting block was placed. 9 mm was resected off the distal femur at 5 of valgus. A posterior referencing AP sizing guide was then placed on the distal femur. The femur measured to be a size 7. 2 drill holes were placed in 3 of external rotation. A 4-in-1 cutting block was then impacted into place. Anterior, posterior, and chamfer cuts were then made. The proximal tibia was then exposed. An external tibial alignment guide was placed. A tibial cut guide was then anchored in place and the proximal tibia was then resected. The posterior aspect of the knee was then opened up and any additional meniscus fragments and osteophytes were removed. The tibia measured to be a size E. The tibial plate was then placed in the appropriate rotation and the tibia was drilled and punched. Trial components were then placed. I used a size 14 medial congruent polyethylene insert. The knee was brought through a full range of motion and felt to be stable. The peg holes for the femoral component were then drilled. The patella was then everted and 9 mm was resected off the posterior aspect of the patella. The patella measured to be a size 31 oval. 3 peg holes were then drilled. A trial patella was placed. The knee was once again brought through a full range of motion and felt to be stable. Trial components were then removed. The surrounding soft tissues were injected with 100 cc of an orthopedic pain control cocktail. All components were then cemented into place with Biomet cement. The final polyethylene insert was then snapped into place. Once cement was dry the tourniquet was deflated. Hemostasis was obtained. A dilute betadyne lavage was then done for 3 minutes. The joint was then irrigated with normal saline solution. The subvastus arthrotomy was then closed with #1 Vicryl suture. The skin was closed with 2-0 Vicryl, 3-0V lock suture, and ranjit. A soft compressive dressing was placed. He was then transferred to a hospital bed and taken to the postanesthesia care unit in stable condition. He tolerated the procedure well. Miquel Carreno PA-C, was present for the entire procedure. He was critical for patient positioning, prepping, draping, retraction exposure, wound closure and application of sterile dressing. I attest to the content of the Intraoperative Record and any orders documented therein. Any exceptions are noted below.
--- NOTE | 2021-09-12 12:45 | XRay Report ---
XR knee RT 1 or 2V routine HISTORY: 71 years-old Male Surgical Post Op right knee total joint arthroplasty COMPARISON: Knee radiographs 02/04/2021 TECHNIQUE: 2 views the right knee FINDINGS: Right knee total joint arthroplasty. Anterior midline skin ranjit are noted along with expected post operative soft tissue swelling and deep tissue air. No acute fracture or unexpected opaque foreign gerson dy. IMPRESSION: Right knee total joint arthroplasty with expected postoperative changes. ACT 112: Negative or not required by law. The above report was generated using voice recognition software. It may contain grammatical, syntax o r spelling errors. Electronically signed by: Castro Greenberg M.D. 09/12/2021 12:43 PM
[2021-09-12] MEDS ORDERED: PHENYLEPHRINE 100MCG/ML 5ML SYR ONE (14:14)
[2021-09-12] MEDS ORDERED: ePHEDrine sulfate 50 MG/ML SYR ONE (14:14)
[2021-09-12] MEDS ORDERED: METOCLOPRAMIDE HCL INJ 5 MG/ML 2 ML VIAL IV PRN (14:18)
[2021-09-12] MEDS ORDERED: bisacodyL 10 MG SUPP PR PRN (14:18)
[2021-09-12] MEDS ORDERED: HYDROmorphone INJ 0.5 MG/0.5 ML SYR IV PRN (14:18)
[2021-09-12] MEDS ORDERED: NALOXONE HCL 0.4 MG/1 ML VIAL/CARP IV PRN (14:18)
[2021-09-12] MEDS ORDERED: MAGNESIUM HYDROXIDE SUSP 30 ML UDC PO PRN (14:18)
[2021-09-12] MEDS ORDERED: ALBUTEROL HFA 8 GM INHALER INH PRN (14:18)
--- NOTE | 2021-09-12 14:25 | Anesthesiology Progress Note ---
Date of Service September 12, 2021 Anesthesia Post Procedure Vital Signs Vital Signs: Temp Pulse Pulse Resp BP BP Pulse Ox 09/12/21 14:02 98.6 F 65 104/63 96 09/12/21 13:50 61 18 100/60 98 09/12/21 13:40 97.2 F L 59 L 20 103/63 97 09/12/21 13:30 59 L 20 106/59 L 96 09/12/21 13:20 67 19 88/49 L 95 09/12/21 13:10 59 L 15 103/59 L 97 09/12/21 13:00 66 13 100/60 98 09/12/21 12:50 63 14 90/52 L 97 09/12/21 12:40 64 13 106/50 L 97 09/12/21 12:30 58 L 16 94/56 L 97 09/12/21 12:20 59 L 13 96/56 L 92 09/12/21 12:13 98.2 F 62 18 90/56 L 97 09/12/21 08:36 97.7 F 66 18 136/67 96 09/12/21 08:36 O2 Del Method O2 Flow Rate 09/12/21 14:02 Nasal Cannula 2 09/12/21 13:50 Nasal Cannula 2 09/12/21 13:40 Nasal Cannula 2 09/12/21 13:30 Nasal Cannula 2 09/12/21 13:20 Nasal Cannula 2 09/12/21 13:10 Nasal Cannula 2 09/12/21 13:00 Nasal Cannula 2 09/12/21 12:50 Nasal Cannula 2 09/12/21 12:40 Nasal Cannula 2 09/12/21 12:30 Nasal Cannula 2 09/12/21 12:20 Room Air 09/12/21 12:13 Room Air 09/12/21 08:36 Room Air 09/12/21 08:36 Room Air Pain Intensity Right Knee: Pain Intensity: 8 Transfer of Care Handoff Completed per policy Notes Mental Status: alert / awake / arousable and participated in evaluation Patient Amnestic to Procedure: Yes Nausea / Vomiting: adequately controlled Pain: adequately controlled Airway Patency, RR, SpO2: stable & adequate BP & HR: stable & adequate Hydration State: stable & adequate Neuraxial Anesthesia: was administered and sensory block is resolving Anesthetic Complications: no major complications apparent and Pt Satisfied with anesthetic care
[2021-09-12] MEDS ORDERED: PHENAZOPYRIDINE HCL 100 MG TAB PO PRN (14:35)
[2021-09-12] MEDS: SODIUM CHLORIDE 0.9% 1000ML 1,000 ML IV SCH (15:23)
[2021-09-12] MEDS: PREGABALIN 100 MG CAP PO SCH ×2 (15:24→21:34)
[2021-09-12] MEDS: ACETAMINOPHEN 500 MG TAB PO SCH ×2 (15:25→23:53)
[2021-09-12] MEDS ORDERED: PHARMACY GLYCEMIC MGMT CONSULT PRN (17:55)
[2021-09-12] MEDS: ceFAZolin 2000MG 2,000 MG/15 ML SYR IV SCH (18:11)
[2021-09-12] MEDS: INSULIN ASPART PER UNIT SC SCH ×2 (18:35→21:41)
--- NOTE | 2021-09-12 18:37 | Pharmacy Report ---
Pharmacy Glycemic Short Note 2 - Date of Service September 12, 2021 - Glycemic Short BSG Results (Last 24 hours): 09/12/21 09/12/21 09/12/21 08:52 12:21 14:07 POC Glucose 106 H 89 99 09/12/21 17:02 POC Glucose 242 H OUTPATIENT ANTIDIABETIC REGIMEN: * Tresiba insulin 40 units SQ BID * Aspart insulin 20 units TID with meals * A1c= 6.5% ASSESSMENT: * Vito is POD #0 R-TKA. * He was administered dexamethasone PO pre-op. Anticipate short term steroid induced hyperglycemia. * Excellent outpatient control evidenced by recent A1c = 6.5%. He takes a total of 140 units of insulin per day as an outpatient. I plan to split this amount into 50% basal + 50 % bolus. Last dose of basal insulin was 7 PM, therefore I will increase this evenings dose by ~40%. PLAN FOR INPATIENT GLYCEMIC CONTROL: * Hold outpatient oral diabetes medications * Basal insulin * Lantus 50 units SQ tonight x 1, then start 35 units SQ BID on 7/30 AM * Bolus insulin * NovoLog per scale ACHS or Q6hrs while NPO * Goal Range: Low 110 mg/dL - High 140 mg/dL * Correction Factor: 10 mg/dL/unit * Nutritional / Prandial insulin per carb ratio of 1 unit per 4 grams CHO consumed
[2021-09-12] MEDS ORDERED: LANTUS PER UNIT CHARGE SQ ONE (18:45)
[2021-09-12] MEDS ORDERED: SENNA 8.6 MG TAB PO SCH (21:00)
[2021-09-12] MEDS: DOCUSATE SODIUM 100 MG CAP PO SCH (21:34)
[2021-09-12] MEDS: RANOLAZINE 500 MG ER TAB PO SCH (21:35)
[2021-09-12] MEDS: dilTIAZem HCL 180 MG CAPCR PO SCH (21:36)
[2021-09-12] MEDS: METOPROLOL TARTRATE 25 MG TAB PO SCH (21:37)
[2021-09-12] MEDS: oxyCODONE HCL IR 5 MG TAB (IMMEDIATE RELEASE) PO PRN (21:45)
[2021-09-13] MEDS: INSULIN ASPART PER UNIT SC SCH ×3 (00:02→08:41)
[2021-09-13] MEDS: SODIUM CHLORIDE 0.9% 1000ML 1,000 ML IV SCH (00:33)
[2021-09-13] MEDS: ceFAZolin 2000MG 2,000 MG/15 ML SYR IV SCH (02:58)
[2021-09-13] MEDS: ACETAMINOPHEN 500 MG TAB PO SCH (06:18)
[2021-09-13 06:39] LABS: INR 1.1 (0.9-1.1); Prothrombin Time 11.8 Seconds (9.0-12.0)
--- NOTE | 2021-09-13 07:42 | Orthopedic Progress Note ---
Date of Service September 13, 2021 Assessment & Plan (1) Status post right knee replacement: Overall he is doing very well. Is not having much pain in the right knee. He will be seen by physical therapy today for ambulation and range of motion exercises. He is on Coumadin for DVT prophylaxis. He can be discharged home later today. He will follow-up with orthopedics in 2 weeks. Jaime Padron was seen and examined at bedside this morning. Overall is doing fairly well. Is not having much pain in the right knee. He has been up and ambulating to the bathroom. He has no complaints.. Review of Systems All systems reviewed & are unremarkable except as noted in HPI & below. Physical Exam On physical examination of the right knee, the dressing is clean and dry. His leg is out full extension. He has active dorsiflexion plantarflexion of his right ankle. Sensation is intact throughout.. Results & Data Results & Data Laboratory Results . Diagnostic Findings X-rays of the right knee show the prosthesis to be in anatomic alignment without any evidence of fracture, dislocation, or loosening. PG Care Time/CCT Total # of Minutes Spent Total Time Spent with Patient: Total time spent is greater than 50% in coordination of care (as documented) at patient's floor/unit and/or counseling patient: Coding Level of Care Code 73739 Post Operative Follow-Up Diagnoses Status post right knee replacement Z96.651
--- NOTE | 2021-09-13 07:43 | Discharge Summary ---
Date of Service September 13, 2021 Principal Diagnosis Same as "Discharge Diagnosis" noted below under Discharge Instructions. Discharge Exam On physical examination of the right knee, the dressing is clean and dry. His leg is out full extension. He has active dorsiflexion plantarflexion of his right ankle. Sensation is intact throughout.. Discharge Data Procedures Performed Operation Date: 09/12/21 10:35 Actual Procedures p Right Total Knee Arthroplasty(Right) - Miquel Gibbs DO Ordered Studies 09/12/21 05:00 US - OR guided needle placemen Routine Hospital Course (1) Status post right knee replacement: On September 12, 2021 Vito arrived to [facility] and underwent a right knee replacement without complication. He had a spinal anesthetic. Postoperatively he was started on Coumadin for DVT prophylaxis and transferred to the general orthopedic floors. His hospital course was uneventful. On postop day #1, his vital signs were stable and his pain was well controlled. He was able to participate well with physical therapy doing ambulation and range of motion exercises. He was then discharged home. He will follow-up with orthopedics in 2 weeks. PG Care Time/CCT Total # of Minutes Spent Total Time Spent with Patient: Total time spent is greater than 50% in coordination of care (as documented) at patient's floor/unit and/or counseling patient: Discharge Plan Discharge Items Patient Disposition: Home - Home Health Services Reason For Visit: Degenerative Joint Disease Right Knee Discharge Diagnosis: Right knee replacement Activity: Per Instructions section Non-emergency contact: Surgeon Call non-emergency contact if: your wound has increased redness and your wound has increased drainage Follow-up/Referrals: Pro,Marco Stahl MD [Primary Care Provider] - Diet: Regular Addtl Attending Provider Instructions: Activity and Therapy Recommendations: * If you are using [facility] then therapy will be provided at your home until they feel you have accomplished all of your goals. * If you are using [facility] then Physical Therapy will be provided until they feel you are ready to start Outpatient Physical Therapy. * If you are not using home therapy then Outpatient Physical Therapy should start about 3-5 days from your day of surgery. Therapy will last about 6-10 weeks * It is important not to put a pillow under your knee when you are relaxing or sleeping. It is just as important to make sure you are getting your knee perfectly straight as it is to regain your knee bend. * You were shown a series of exercises in the hospital. Do these exercises three times each day including the exercises you were shown in physical therapy. * Get up and walk several times each day. For the first four weeks, try not to stand or walk for more than one hour at a time. If you do stand or walk for more than one hour, you will not hurt anything, but your leg will likely swell. * As you feel comfortable, you may change from the walker or crutches to a cane and then to independent walking. Medications: * Narcotic You will likely be sent home from the hospital with a prescription for the narcotic pain medication that worked best throughout your stay. * Aspirin Most patients will be required to take Aspirin 81mg twice a day for 6 weeks after surgery. This is obtained [id number] and a prescription is not necessary. * Other medications may be prescribed for specific circumstances. If you have any questions, please call the office at . * Resume previous home medications unless otherwise instructed TEDs/Elastic Stockings: The white elastic stockings help limit swelling and prevent blood clots from forming in your legs.~ The more you wear them, the more they work. Wear them for six weeks. Dressing Care: The dressing can be changed after physical therapy on postop day #1. Daily dry dressing changes for a few days, especially if the incision is still draining some. If the incision is not draining then you may leave the ranjit open to air. If there is a little bit of drainage or if the ranjit are getting stuck on your clothing then cover the incision with a dry dressing. The ranjit will be removed at your 2 week follow-up appointment. Showering: You may shower 5 days from the day of surgery as long as the incision is no longer draining. You may shower with the ranjit exposed. Let soapy water run over the ranjit and pat them dry. Do not scrub or soak the incision. Things To Watch For: * Drainage from the incision site that occurs more than one week after your surgery. * Increased redness at the incision site. * Fever above 102 degrees Fahrenheit. * Unusual chest pain or shortness of breath. * Call [facility] at with any of the above problems Follow-Up Visit: Follow-up with Dr. Gibbs's PA (Miquel Carreno) 2-3 weeks after your day of surgery. He will remove your ranjit and answer any questions. If you have any additional questions or concerns, Dr Gibbs is usually in the office at the same time and will be available An appointment was probably scheduled when you signed-up for surgery in the office. If you have any questions call Office Instructions: More detailed instructions as well as Frequently Asked Questions were provided in a folder by our office when you signed-up for surgery. Please review these instructions when you get home. If you have any further questions or concerns, please feel free to call the office at [phone] Pending Studies at Discharge: No Stand-Alone Forms: My [facility] ThisNext, Smoking Cessation Medications and DC Order Prescriptions: New oxycodone-acetaminophen 5-325 mg tablet 1 tab PO Q6H PRN (Reason: pain) Qty: 30 0RF Continued diltiazem HCl 180 mg capsule,extended release 24hr 180 mg PO BID 90 Days Qty: 180 3RF furosemide 40 mg tablet 40 mg PO QAM Qty: 90 3RF fenofibrate nanocrystallized 48 mg tablet 48 mg PO QDL Qty: 90 3RF metoprolol tartrate 25 mg tablet 25 mg PO BID Qty: 180 3RF warfarin 3 mg tablet 3 mg PO HS Qty: 90 3RF Protocol: Dose Management Condition: Wednesday Dose/Route: 3 mg Instruction: 1 x 3 mg tablet Condition: Wednesday Dose/Route: 1.5 mg Instruction: 0.5 x 3 mg tablets Condition: Wednesday Dose/Route: 3 mg Instruction: 1 x 3 mg tablet Condition: Wednesday Dose/Route: 3 mg Instruction: 1 x 3 mg tablet Condition: Dose/Route: 1.5 mg Instruction: 0.5 x 3 mg tablets Condition: Wednesday Dose/Route: 3 mg Instruction: 1 x 3 mg tablet Condition: Wednesday Dose/Route: 1.5 mg Instruction: 0.5 x 3 mg tablets Protocol Text: Adjustment Start Date: Wednesday08/29/21 INR Value: 1.9 INR Date: 08/29/21 Recheck Date: 09/05/21 rosuvastatin [Crestor] 20 mg tablet 20 mg PO QAM Qty: 90 3RF tramadol 50 mg tablet 50 mg PO Q8H PRN (Reason: pain) Qty: 180 3RF (DME) Oxygen Home Liters Per Minute See Rx Instructions .MEDSUPPLY Qty: 1 0RF Rx Instructions: 2 Liters per minute continuous insulin aspart U-100 [Novolog Flexpen U-100 Insulin] 100 unit/mL (3 mL) insulin pen See Rx Instructions .ROUTE .COMPLEX Qty: 15 3RF Dose Instruction: INJECT 20 UNITS (0.2MLS) SUBCUTANEOUSLY (UNDER THE SKIN) THREE TIMES DAILY WITH MEALS Rx Instructions: INJECT 20 UNITS (0.2MLS) SUBCUTANEOUSLY (UNDER THE SKIN) THREE TIMES DAILY WITH MEALS (DME) Dexcom G6 Sensor Device See Rx Instructions .Route Qty: 3 11RF Rx Instructions: use for blood sugar checks (DME) Dexcom G6 Transmitter Device See Rx Instructions .Route Qty: 1 3RF Rx Instructions: use for blood sugars change out every 90 days multivitamin [Daily Multi-Vitamin] Tablet 1 tab PO QAM pregabalin [Lyrica] 50 mg capsule 100 mg PO TID Qty: 90 0RF albuterol sulfate 90 mcg/actuation HFA aerosol inhaler 1 - 2 puff inhalation Q4H PRN (Reason: shortness of breath) Qty: 18 3RF cholecalciferol (vitamin D3) 1,000 unit (25 mcg) tablet 1,000 units PO QDL cyanocobalamin (vitamin B-12) 100 mcg tablet 100 mcg PO 3XWK tamsulosin 0.4 mg capsule 0.4 mg PO QAM Arnuity Ellipta 50 mcg/actuation blister with device 1 inh INH QAM Tresiba U-100 Insulin 100 unit/mL Solution 40 unit SUBCUT BID omega [id number]-fish oil [Fish Oil] 1,000 mg (120 mg-180 mg) Capsule 1 cap PO QAM phenazopyridine [Azo] 95 mg Tablet 95 mg PO QAM ranolazine 1,000 mg tablet extended release 12 hr 1,000 mg PO Q12H Qty: 60 6RF Discharge Orders: Discharge Order (Routine); Ordered 09/13/21 Ordered By: Miquel Gibbs Admission Data Admit Date/Time: 09/12/21 12:15 Attending Provider: Miquel Gibbs Admit Provider: Miquel Gibbs Primary Care Provider: Pro,Marco Stahl
[2021-09-13] MEDS ORDERED: WARFARIN SOD 3 MG TAB PO SCH (08:00)
[2021-09-13] MEDS: oxyCODONE HCL IR 5 MG TAB (IMMEDIATE RELEASE) PO PRN (08:04)
[2021-09-13] MEDS: RANOLAZINE 500 MG ER TAB PO SCH (08:26)
[2021-09-13] MEDS: DOCUSATE SODIUM 100 MG CAP PO SCH (08:27)
[2021-09-13] MEDS: METOPROLOL TARTRATE 25 MG TAB PO SCH (08:27)
[2021-09-13] MEDS: dilTIAZem HCL 180 MG CAPCR PO SCH (08:27)
[2021-09-13] MEDS: PREGABALIN 100 MG CAP PO SCH (08:30)
[2021-09-13] MEDS ORDERED: LANTUS PER UNIT CHARGE SQ SCH (09:00)
[2021-09-13] MEDS ORDERED: MULTIVITAMIN TAB PO SCH (09:00)
[2021-09-13] MEDS ORDERED: FUROSEMIDE 40 MG TAB PO SCH (09:00)
[2021-09-13] MEDS ORDERED: ROSUVASTATIN CALCIUM 20 MG TAB PO SCH (09:00)
[2021-09-13] MEDS ORDERED: TAMSULOSIN HCL 0.4 MG CAP PO SCH (09:00)
[2021-09-13] MEDS ORDERED: FLUTICASONE FUROATE 100MCG 14 PUFFS/INHALER INH SCH (09:00)
[2021-09-13] MEDS ORDERED: FENOFIBRATE NANOCRYSTALLIZED 48 MG TABLET PO SCH (11:30)
== END 2021-09-13 12:32 | disposition home health service (06) ==
LOC: ASU 07:55 → 3E 07:55

== ENCOUNTER 2022-05-28 11:25 | Observation (INO) ==
[2022-05-28] MEDS ORDERED: ALBUT/IPRATROP 3MG/0.5MG NEB 3 ML VIAL NEB STA (11:58)
--- NOTE | 2022-05-28 12:04 | XRay Report ---
XR chest 1V not portable CLINICAL HISTORY: Chest pain, nonspecific COMPARISON STUDY: Chest CT May 03, 2021. Chest radiograph May 28, 2022 at 9:57 AM. FINDINGS: There is no pneumothorax or pleural effusion. Moderate cardiomegaly is noted. 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 Asymmetric interstitial thickening and airspace opacities within the right sarah g are noted. Appearance is similar to prior exam. IMPRESSION: Mild asymmetric interstitial thickening and airspace opacities within the right lung. The findings may reflect pneumonia or asymmetric pulmonary edema. Radiographic follow-up is recommended to ensure resolution. ACT 112: Negative or not required by law. Electronically signed by: Mc Concepcion M.D. 05/28/2022 12:03 PM
--- NOTE | 2022-05-28 12:31 | Emergency Department Note ---
History of Present Illness General Chief Complaint: Shortness of Breath/Dyspnea Stated Complaint: CHEST PAIN, FATIGUE Time Seen by Provider: 05/28/22 11:49 History of Present Illness Provider Complaint: shortness of breath and cough Onset (ago): day(s) (4) Severity: moderate Consistency/Duration: + progressively worsening Relieved By: + nothing Exacerbated By: + exertion and + coughing Known history of: congestive heart failure Associated symptoms: + fever, + cough, + wheezing, + sputum production and + chest congestion; no pain with inspiration or no palpitations Related Data Home oxygen amount: 2 liters Home Medications Medication Instructions Recorded Confirmed Type cholecalciferol (vitamin D3) 25 1,000 units PO QDL 10/04/18 05/28/22 History mcg (1,000 unit) tablet albuterol sulfate 90 mcg/actuation 1 - 2 puff inhalation Q4H PRN 12/27/19 05/28/22 Rx aerosol inhaler shortness of breath #18 grams cyanocobalamin (vitamin B-12) 100 100 mcg PO [id number] 12/27/19 05/28/22 History mcg tablet multivitamin (Daily Multi-Vitamin 1 tab PO QAM 03/15/20 05/28/22 History tablet) tramadol 50 mg tablet 50 mg PO Q8H PRN pain #180 tabs 04/15/21 05/28/22 Rx omega 6-izo-ghk-fish oil 1,000 mg 1 cap PO QAM 06/10/21 05/28/22 History (120 mg-180 mg) capsule (Fish Oil) phenazopyridine 95 mg tablet 95 mg PO QAM 08/14/21 05/28/22 History Oxygen Home #1 ea 08/27/21 05/28/22 Rx insulin aspart U-100 100 unit/mL See Rx Instructions .Route 08/27/21 05/28/22 Rx (3 mL) subcutaneous pen (Novolog .COMPLEX #15 mL FlexPen U-100 Insulin aspart) blood-glucose sensor (Dexcom G6 #3 ea 09/04/21 05/28/22 Rx Sensor device) blood-glucose transmitter (Dexcom #1 ea 09/04/21 05/28/22 Rx G6 Transmitter device) diltiazem HCl 180 mg 180 mg PO BID 90 days #180 caps 09/16/21 05/28/22 Rx capsule,extended release 24 hr furosemide 40 mg tablet 40 mg PO QAM #90 tabs 09/16/21 05/28/22 Rx fenofibrate nanocrystallized 48 mg 48 mg PO QDL #90 tabs 11/03/21 05/28/22 Rx tablet metoprolol tartrate 25 mg tablet 25 mg PO BID #180 tabs 11/03/21 05/28/22 Rx lisinopril 5 mg tablet 5 mg PO DAILY #90 tabs 11/07/21 05/28/22 Rx pregabalin 100 mg capsule 100 mg PO TID #270 caps 11/17/21 05/28/22 Rx warfarin 3 mg tablet 3 mg PO HS #90 tabs 12/02/21 05/28/22 Rx tamsulosin 0.4 mg capsule 0.4 mg PO QAM #90 caps 12/15/21 05/28/22 Rx ranolazine 1,000 mg 1,000 mg PO Q12H #60 tabs 02/02/22 05/28/22 Rx tablet,extended release,12 hr rosuvastatin 20 mg tablet (Crestor) 20 mg PO QAM #90 tabs 03/11/22 05/28/22 Rx fluticasone furoate 50 1 inh inhalation QAM #90 ea 03/20/22 05/28/22 Rx mcg/actuation blister powder for inhalation (Arnuity Ellipta) ascorbic acid (vitamin C) 1,000 mg 1 g PO DAILY #90 caps 03/24/22 05/28/22 Rx capsule cinnamon bark 500 mg capsule 500 mg PO DAILY #30 caps 03/24/22 05/28/22 Rx (Cinnamon) pen needle, diabetic 32 gauge x #200 ea 04/14/22 05/28/22 Rx 5/32" (BD Reyna 2nd Gen Pen Needle) insulin degludec 200 unit/mL (3 40 unit (0.2 mL) subcut BID #9 mL 05/15/22 05/28/22 Rx mL) subcutaneous pen (Tresiba FlexTouch U-200 insulin) Allergies Allergy/AdvReac Type Severity Reaction Status Date / Time dulaglutide [From [facility]] AdvReac Intermediate Diarrhea , Verified 05/28/22 09:36 nausea Past Med/Surg History Medical History Abdominal aortic aneurysm dissection "infrarenal aortic dissection extending into right common iliac and right proximal mid external iliac arteries": Annual surveillance (stable), monitored by [facility] vascular surgery Acute UTI Atrial fibrillation 2020 follow with [facility] Bilateral renal cysts 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 Moderate non-obstructive proximal-mid LAD (FFR 0.83). Mild-moderate multivessel disease- 30-40% proximal OM1, mid circumflex, mid RCA 10/12/18 cath: Distal LAD disease is low risk involving small vessel at the apex. Recommend trial of additional antianginal therapy, start Imdur. If persistent symptoms could consider POBA +/- stent to LAD. Diabetic nephropathy associated with type 2 diabetes mellitus Diabetic polyneuropathy B/L LE Dyslipidemia Encounter for pre-operative examination Gastroparesis History of anemia History of blood transfusion during mitral valve repair per pt Hypertension controlled, stable per pt Interstitial lung disease monitoring per [facility]ology Lumbar back pain Pulmonary hypertension Moderate 09/2020 echo, "suspected secondary to elevated end-diastolic pressure, obesity, restrictive lung disease, hypoxemia and sleep disordered breathing: Would not recommend consideration for any pulmonary vasodilators at this point" follows with [facility] pul[facility]ology; Right heart cath 07/11/21: Normal left and right-sided filling pressures. Normal pulmonary artery pressure. Restrictive lung disease Stroke 2019, embolic, 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 CVA post cardiac catheterization, mild residual aphasia Surgical History History of cardiac cath no stents History of colonoscopy History of cystoscopy Left Ureteronephroscopy 08/24/2019: Grade 3 view, MAC#3.0, ETT#8.0. No issues per anesthesia postop progress note. History of mitral valve replacement [facility] History of shoulder surgery RT/LEFT History of surgical removal of pilonidal cyst History of tooth extraction History of total left knee replacement Family History Mother Colon cancer Diabetes Grandmother Multiple sclerosis Father Diabetes Coronary heart disease Myocardial infarction Grandfather Stroke Sister Diabetes Hypertension Brother Diabetes Hypertension Son Depression Hypertension Other No family history of adverse response to anesthesia Denies family history of Ovarian cancer Prostate cancer Breast cancer Social History Smoking Status: Never smoker Second Hand Exposure: No; Hx Alcohol Use: No Hx Substance Use: No Preferred Language: Zambian Communication Ability: Effective Visual Impairment: No Limitations Hearing Ability: Normal Oracle Adf Consultant Required: Yes Beliefs That Will Affect Care: None marital status: Current Living Situation: Spouse Current Living Situation Comment: live with and grown children current occupational status: retired current occupation: Former [employer] How many Children do You have: 2 Other Information That Helps Us Care for You: No Feels Safe at Home: Yes Safety Concerns: Feels Safe At This Time Childhood Exposure to Second-Hand Smoke: No Dental Care, Regularly: No Physical Activity Frequency: Does not Exercise Seatbelt Use: always Sunscreen Use: No Assistive Devices: Oxygen - Continuous Physical Exam Vital Signs: Vital Signs - 24 hr 05/28/22 11:30 05/28/22 11:36 05/28/22 12:06 Temperature 36.9 C Temperature Source Temporal Artery Sc an Pulse Rate 92 H Pulse Rate [Apical ] 88 Respiratory Rate 26 H 24 Respiratory Effort / Characteristics Non-Labored Sponta neous Respiratory Depth Normal Respiratory Patter n Tachypnea Blood Pressure 90/53 L Blood Pressure [Ri ght Arm] 100/63 Blood Pressure Soha n 65 Blood Pressure Soha n [Right Arm] 75 Blood Pressure Pos ition Sitting Blood Pressure Pos ition [Right Arm] Sitting Pulse Oximetry 87 L 87 L 93 Oxygen Delivery Me thod Room Air Nasal Cannula Nasal Cannula Oxygen Flow Rate 0 2 Sepsis Recent Feve r Within 48 Hours No Sepsis New/Unexpla ined Change in Men magdalene Status N/A Sepsis Action Take n by Nursing No Action Required Oxygen Flow Rate - Titration 2 Pulse Oximetry Pos t Tiitration 93 05/28/22 12:06 05/28/22 12:33 05/28/22 12:06 Temperature Temperature Source Pulse Rate 100 H Pulse Rate [Apical ] 88 Respiratory Rate 22 Respiratory Effort / Characteristics Respiratory Depth Respiratory Patter n Blood Pressure Blood Pressure [Ri ght Arm] 107/60 Blood Pressure Soha n Blood Pressure Soha n [Right Arm] 75 Blood Pressure Pos ition Blood Pressure Pos ition [Right Arm] Sitting Pulse Oximetry 93 93 Oxygen Delivery Me thod Nasal Cannula Nasal Cannula Oxygen Flow Rate 2 2 Sepsis Recent Feve r Within 48 Hours Sepsis New/Unexpla ined Change in Men magdalene Status Sepsis Action Take n by Nursing Oxygen Flow Rate - Titration Pulse Oximetry Pos t Tiitration 05/28/22 12:59 05/28/22 13:35 Temperature Temperature Source Pulse Rate Pulse Rate [Apical ] 87 90 Respiratory Rate 20 20 Respiratory Effort / Characteristics Respiratory Depth Normal Normal Respiratory Patter n Blood Pressure Blood Pressure [Ri ght Arm] 121/67 135/76 Blood Pressure Soha n Blood Pressure Soha n [Right Arm] 85 95 Blood Pressure Pos ition Blood Pressure Pos ition [Right Arm] Pulse Oximetry 92 93 Oxygen Delivery Me thod Nasal Cannula Nasal Cannula Oxygen Flow Rate 2 2 Sepsis Recent Feve r Within 48 Hours Sepsis New/Unexpla ined Change in Men magdalene Status Sepsis Action Take n by Nursing Oxygen Flow Rate - Titration Pulse Oximetry Pos t Tiitration Physical Exam: Physical Exam GENERAL: oriented to person, place, and time. appears well-developed and well- nourished. HENT: Exam performed. - Head: Normocephalic and atraumatic. EYES: Conjunctivae and EOM are normal. Right eye exhibits no discharge. Left eye exhibits no discharge. No scleral icterus. NECK: Normal range of motion. Neck supple. No JVD present. CV: Normal rate, regular rhythm, normal heart sounds and intact distal pulses. Palpable radial pulses bue. PULM/CHEST: Audible expiratory wheezes bilaterally. ABD: The abdomen is soft. There is no tenderness. NEURO: Motor and sensation grossly intact. SKIN: Skin is warm and dry. He is not diaphoretic. PSYCH: normal mood and affect. Behavior is normal. Judgment and thought content normal. Course Course 1149: The patient was evaluated in room A10. A complete history and physical exam was performed Cardiac monitoring: An order was placed for continuous cardiac monitoring. The monitor shows a rate of 90 with sinus rhythm interpreted by me 1440: Vital signs stable on supplemental oxygen via nasal cannula. Labs show leukocytosis of 15.99. INR therapeutic at 2.2. VBG within normal limits. Creatinine at base around 2.46. BNP elevated 211. Current procalcitonin within normal limits. COVID influenza RSV negative. Imaging shows pneumonia. Patient has a moderate CURB 65 and a class IV PSI score. [facility] Rocephin and azithromycin ordered for the patient. PSI/PORT Score: Pneumonia Severity Index for CAP from [facility] on 05/28/2022 All calculations should be rechecked by clinician prior to use RESULT SUMMARY: 112 points Risk Class IV, 8.2-9.3% mortality. Hospitalization recommended based on risk. INPUTS: Age > 72 years Sex > 0 = Male [facility] resident > 0 = No Neoplastic disease > 0 = No Liver disease history > 0 = No CHF history > 10 = Yes Cerebrovascular disease history > 0 = No Renal disease history > 10 = Yes Altered mental status > 0 = No Respiratory rate &ge;30 breaths/min > 0 = No Systolic blood pressure <90 mmHg > 0 = No Temperature <35&deg;C (95&deg;F) or >39.9&deg;C (103.8&deg;F) > 0 = No Pulse &ge;125 beats/min > 0 = No pH <7.35 > 0 = No BUN &ge;30 mg/dL or &ge;11 mmol/L > 20 = Yes Sodium <130 mmol/L > 0 = No Glucose &ge;250 mg/dL or &ge;14 mmol/L > 0 = No Hematocrit <30% > 0 = No Partial pressure of oxygen <60 mmHg or <8 kPa > 0 = No Pleural effusion on x-ray > 0 = No CURB-65 Score for [facility]neum[email or web address] on 05/28/2022 All calculations should be rechecked by clinician prior to use RESULT SUMMARY: 3 points Severe risk group: 14.0% 30-day mortality. Consider inpatient treatment with possible intensive care admission. INPUTS: Confusion > 0 = No BUN >19 mg/dL (>7 mmol/L urea) > 1 = Yes Respiratory Rate &ge;30 > 0 = No Systolic BP <90 mmHg or Diastolic BP &le;60 mmHg > 1 = Yes Age &ge;65 > 1 = Yes Administered Medications Guaifenesin (Guaifenesin Sugar Free 100 Mg/5 Ml Udc) 100 mg PO Q6H PRN PRN Reason: Cough Stop: 06/27/22 17:36 Last Admin: 05/28/22 18:36 Dose: 100 mg Documented By: CHAYA Insulin Aspart (Insulin Aspart Per Unit Charge) 0 units SC ACHS FRANKIE Stop: 06/27/22 16:29 Last Admin: 05/28/22 17:10 Dose: 4 units Documented By: CHAYA Co-signed By: ALEXANDRE Ranolazine (Ranolazine 500 Mg Er Tab) 1,000 mg PO Q12H FRANKIE Stop: 06/27/22 17:59 Last Admin: 05/28/22 18:35 Dose: 1,000 mg Documented By: CHAYA Warfarin Sodium (Warfarin Sod 3 Mg Tab) 3 mg PO DAILY@1600 [facility] Stop: 06/27/22 15:59 Last Admin: 05/28/22 18:35 Dose: 3 mg Documented By: CHAYA Discontinued Medications Albuterol (Albut/Ipratrop 3mg/0.5mg Neb 3 Ml Vial) 3 ml NEB NOW STA; Protocol Stop: 05/28/22 11:59 Last Admin: 05/28/22 12:12 Dose: 3 ml Documented By: ALONDRA Azithromycin (Azithromycin 250 Mg Tab) 500 mg PO NOW ONE Stop: 05/28/22 14:19 Last Admin: 05/28/22 14:38 Dose: 500 mg Documented By: ALONDRA Ceftriaxone Sodium 1,000 mg/ (Dextrose) 50 mls @ 100 mls/hr IV NOW STA Stop: 05/28/22 14:47 Last Infusion: 05/28/22 16:43 Dose: 0 mls/hr Documented By: Infusion: 05/28/22 15:07 Dose: 0 mls/hr Documented By: Admin: 05/28/22 14:37 Dose: 100 mls/hr Documented By: ALONDRA Sodium Chloride (Nss) 500 mls @ 125 mls/hr IV .Q4H FRANKIE Stop: 06/27/22 14:59 Last Infusion: 05/28/22 16:43 Dose: 0 mls/hr Documented By: Admin: 05/28/22 15:01 Dose: 125 mls/hr Documented By: ALONDRA Medical Decision Making Laboratory Data Attestation: I reviewed the patient's lab results. 05/28/22 12:15 05/28/22 12:15 Lab Results 05/28/22 05/28/22 05/28/22 Range/Units 12:14 12:15 12:15 WBC 15.99 H (4.8-10.8) K/ul RBC 4.51 L (4.70-6.10) M/uL Hgb 14.5 (14.0-18.0) g/dl Hct 43.2 (42.0-52.0) % MCV 95.8 (80.0-100.0) fL MCH 32.2 (25.0-34.0) pg MCHC 33.6 (32.0-36.0) g/dL RDW Std Deviation 49.8 H (36.4-46.3) fL RDW Coeff of Romulo 14.1 (11.5-14.5) % Plt Count 354 (130-400) K/uL MPV 10.0 (9.4-12.4) fL Immature Gran % (Auto) 0.4 % Neut % (Auto) 83.4 % Lymph % (Auto) 7.3 % [place] % (Auto) 8.3 % Eos % (Auto) 0.5 % Baso % (Auto) 0.1 % Neut # (Auto) 13.32 H (1.40-6.50) K/uL Lymph # (Auto) 1.17 L (1.2-3.4) K/uL [place] # (Auto) 1.33 H (0.11-0.59) K/uL Eos # (Auto) 0.08 (0-0.50) K/uL Baso # (Auto) 0.02 (0-0.2) K/uL Immature Gran # (Auto) 0.07 (0.01-0.20) K/uL PT 22.6 H (9.0-12.0) Seconds INR 2.2 H (0.9-1.1) APTT 41.0 H (21.0-31.0) Seconds PTT Ratio 1.5 VBG pH (7.36-7.41) VBG pCO2 (38-50) mmHg VBG pO2 mmHg VBG HCO3 mmol/L VBG O2 Saturation % VBG Base Excess mEq/L Sodium (136-145) mmol/L Potassium (3.5-5.1) mmol/L Chloride (98-107) mmol/L Carbon Dioxide (21-32) mmol/L Anion Gap (3-11) BUN (6-23) mg/dl Creatinine (0.6-1.4) mg/dl Est Cr Clr Drug Dosing ml/min Est GFR ( Amer) ml/min Est GFR (Non-Af Amer) ml/min BUN/Creatinine Ratio (10-20) Glucose (70-99(Fasting)) mg/dl Lactate (0.4-2.0) mmol/L Calcium (8.6-10.3) mg/dl Magnesium (1.7-2.4) mg/dl Total Bilirubin (0.2-1.0) mg/dl AST (13-39) U/L ALT (7-52) U/L Alkaline Phosphatase (34-104) U/L Troponin I High Sens (0-20) pg/ml B-Natriuretic Peptide (0-100) pg/ml Total Protein (6.0-8.3) gm/dl Albumin (3.4-5.0) gm/dl Globulin (2.5-4.0) gm/dl Albumin/Globulin Ratio (0.9-2) Procalcitonin (0-0.5) ng/ml SARS-CoV-2 (PCR) NEGATIVE (Negative) Influenza Type A (PCR) Negative (Neg) Influenza Type B (PCR) Negative (Neg) RSV (RT-PCR) Negative (Neg) 05/28/22 05/28/22 05/28/22 Range/Units 12:15 12:15 12:15 WBC (4.8-10.8) K/ul RBC (4.70-6.10) M/uL Hgb (14.0-18.0) g/dl Hct (42.0-52.0) % MCV (80.0-100.0) fL MCH (25.0-34.0) pg MCHC (32.0-36.0) g/dL RDW Std Deviation (36.4-46.3) fL RDW Coeff of Romulo (11.5-14.5) % Plt Count (130-400) K/uL MPV (9.4-12.4) fL Immature Gran % (Auto) % Neut % (Auto) % Lymph % (Auto) % [place] % (Auto) % Eos % (Auto) % Baso % (Auto) % Neut # (Auto) (1.40-6.50) K/uL Lymph # (Auto) (1.2-3.4) K/uL [place] # (Auto) (0.11-0.59) K/uL Eos # (Auto) (0-0.50) K/uL Baso # (Auto) (0-0.2) K/uL Immature Gran # (Auto) (0.01-0.20) K/uL PT (9.0-12.0) Seconds INR (0.9-1.1) APTT (21.0-31.0) Seconds PTT Ratio VBG pH (7.36-7.41) VBG pCO2 (38-50) mmHg VBG pO2 mmHg VBG HCO3 mmol/L VBG O2 Saturation % VBG Base Excess mEq/L Sodium 137 (136-145) mmol/L Potassium 4.9 (3.5-5.1) mmol/L Chloride 103 (98-107) mmol/L Carbon Dioxide 26 (21-32) mmol/L Anion Gap 8 (3-11) BUN 41 H (6-23) mg/dl Creatinine 2.46 H (0.6-1.4) mg/dl Est Cr Clr Drug Dosing 31.1 ml/min Est GFR ( Amer) 29.2 ml/min Est GFR (Non-Af Amer) 25.2 ml/min BUN/Creatinine Ratio 16.7 (10-20) Glucose 72 (70-99(Fasting)) mg/dl Lactate 1.1 (0.4-2.0) mmol/L Calcium 10.1 (8.6-10.3) mg/dl Magnesium 1.9 (1.7-2.4) mg/dl Total Bilirubin 1.0 (0.2-1.0) mg/dl AST 19 (13-39) U/L ALT 16 (7-52) U/L Alkaline Phosphatase 57 (34-104) U/L Troponin I High Sens 14.1 (0-20) pg/ml B-Natriuretic Peptide (0-100) pg/ml Total Protein 7.6 (6.0-8.3) gm/dl Albumin 4.3 (3.4-5.0) gm/dl Globulin 3.3 (2.5-4.0) gm/dl Albumin/Globulin Ratio 1.3 (0.9-2) Procalcitonin 0.40 (0-0.5) ng/ml SARS-CoV-2 (PCR) (Negative) Influenza Type A (PCR) (Neg) Influenza Type B (PCR) (Neg) RSV (RT-PCR) (Neg) 05/28/22 05/28/22 Range/Units 12:15 12:27 WBC (4.8-10.8) K/ul RBC (4.70-6.10) M/uL Hgb (14.0-18.0) g/dl Hct (42.0-52.0) % MCV (80.0-100.0) fL MCH (25.0-34.0) pg MCHC (32.0-36.0) g/dL RDW Std Deviation (36.4-46.3) fL RDW Coeff of Romulo (11.5-14.5) % Plt Count (130-400) K/uL MPV (9.4-12.4) fL Immature Gran % (Auto) % Neut % (Auto) % Lymph % (Auto) % [place] % (Auto) % Eos % (Auto) % Baso % (Auto) % Neut # (Auto) (1.40-6.50) K/uL Lymph # (Auto) (1.2-3.4) K/uL [place] # (Auto) (0.11-0.59) K/uL Eos # (Auto) (0-0.50) K/uL Baso # (Auto) (0-0.2) K/uL Immature Gran # (Auto) (0.01-0.20) K/uL PT (9.0-12.0) Seconds INR (0.9-1.1) APTT (21.0-31.0) Seconds PTT Ratio VBG pH 7.41 (7.36-7.41) VBG pCO2 42 (38-50) mmHg VBG pO2 54 mmHg VBG HCO3 27 mmol/L VBG O2 Saturation 84.0 % VBG Base Excess 1.7 mEq/L Sodium (136-145) mmol/L Potassium (3.5-5.1) mmol/L Chloride (98-107) mmol/L Carbon Dioxide (21-32) mmol/L Anion Gap (3-11) BUN (6-23) mg/dl Creatinine (0.6-1.4) mg/dl Est Cr Clr Drug Dosing ml/min Est GFR ( Amer) ml/min Est GFR (Non-Af Amer) ml/min BUN/Creatinine Ratio (10-20) Glucose (70-99(Fasting)) mg/dl Lactate (0.4-2.0) mmol/L Calcium (8.6-10.3) mg/dl Magnesium (1.7-2.4) mg/dl Total Bilirubin (0.2-1.0) mg/dl AST (13-39) U/L ALT (7-52) U/L Alkaline Phosphatase (34-104) U/L Troponin I High Sens (0-20) pg/ml B-Natriuretic Peptide 211 H (0-100) pg/ml Total Protein (6.0-8.3) gm/dl Albumin (3.4-5.0) gm/dl Globulin (2.5-4.0) gm/dl Albumin/Globulin Ratio (0.9-2) Procalcitonin (0-0.5) ng/ml SARS-CoV-2 (PCR) (Negative) Influenza Type A (PCR) (Neg) Influenza Type B (PCR) (Neg) RSV (RT-PCR) (Neg) Imaging Data Attestation: I personally reviewed and interpreted this imaging study as follows: My Impression: Infiltrates bilaterally. Radiologist's Impression: Chest X-Ray 05/28/22 11:35 XR chest 1V not portable CLINICAL HISTORY: Chest pain, nonspecific COMPARISON STUDY: Chest CT May 03, 2021. Chest radiograph May 28, 2022 at 9:57 AM. FINDINGS: There is no pneumothorax or pleural effusion. Moderate cardiomegaly is noted. There is a prosthetic mitral valve. Asymmetric interstitial thickening and airspace opacities within the right lung are noted. Appearance is similar to prior exam. IMPRESSION: Mild asymmetric interstitial thickening and airspace opacities within the right lung. The findings may reflect pneumonia or asymmetric pulmonary edema. Radiographic follow-up is recommended to ensure resolution. ACT 112: Negative or not required by law. Electronically signed by: Mc Concepcion M.D. 05/28/2022 12:03 PM ECG Data Attestation: I personally reviewed and interpreted this ECG as follows: Interpretation: A-fib with rate of 102. QRS [address] elevation or ST depression. [facility] Narrative 1149: The patient was evaluated in room A10. A complete history and physical exam was performed Cardiac monitoring: An order was placed for continuous cardiac monitoring. The monitor shows a rate of 90 with sinus rhythm interpreted by me 1440: Vital signs stable on supplemental oxygen via nasal cannula. Labs show leukocytosis of 15.99. INR therapeutic at 2.2. VBG within normal limits. Creatinine at base around 2.46. BNP elevated 211. Current procalcitonin within normal limits. COVID influenza RSV negative. Imaging shows pneumonia. Patient has a moderate CURB 65 and a class IV PSI score. [facility] Rocephin and azithromycin ordered for the patient. PSI/PORT Score: Pneumonia Severity Index for CAP from [facility] on 05/28/2022 All calculations should be rechecked by clinician prior to use RESULT SUMMARY: 112 points Risk Class IV, 8.2-9.3% mortality. Hospitalization recommended based on risk. INPUTS: Age > 72 years Sex > 0 = Male [facility] resident > 0 = No Neoplastic disease > 0 = No Liver disease history > 0 = No CHF history > 10 = Yes Cerebrovascular disease history > 0 = No Renal disease history > 10 = Yes Altered mental status > 0 = No Respiratory rate &ge;30 breaths/min > 0 = No Systolic blood pressure <90 mmHg > 0 = No Temperature <35&deg;C (95&deg;F) or >39.9&deg;C (103.8&deg;F) > 0 = No Pulse &ge;125 beats/min > 0 = No pH <7.35 > 0 = No BUN &ge;30 mg/dL or &ge;11 mmol/L > 20 = Yes Sodium <130 mmol/L > 0 = No Glucose &ge;250 mg/dL or &ge;14 mmol/L > 0 = No Hematocrit <30% > 0 = No Partial pressure of oxygen <60 mmHg or <8 kPa > 0 = No Pleural effusion on x-ray > 0 = No CURB-65 Score for Pneumonia Severity from [email or web address] on 05/28/2022 All calculations should be rechecked by clinician prior to use RESULT SUMMARY: 3 points Severe risk group: 14.0% 30-day mortality. Consider inpatient treatment with possible intensive care admission. INPUTS: Confusion > 0 = No BUN >19 mg/dL (>7 mmol/L urea) > 1 = Yes Respiratory Rate &ge;30 > 0 = No Systolic BP <90 mmHg or Diastolic BP &le;60 mmHg > 1 = Yes Age &ge;65 > 1 = Yes Impression & Plan Pneumonia Discharge Plan Visit Data Chief Complaint: Shortness of Breath/Dyspnea Stated Complaint: CHEST PAIN, FATIGUE ED Provider: Louis Rojas Discharge Problem: Pneumonia Patient Disposition: Admitted As Inpatient Discharge Instructions Interventions: ED Discharge Assessment Last Done: 05/28/22 15:32
[2022-05-28 12:43] LABS: Basophils # (auto) 0.02 K/uL (0-0.2); Basophils % (auto) 0.1 %; Eosinophils # (auto) 0.08 K/uL (0-0.50); Eosinophils % (auto) 0.5 %; Hematocrit (blood only) 43.2 % (42.0-52.0); Hemoglobin 14.5 g/dl (14.0-18.0); Immature Granulocytes # (auto) 0.07 K/uL (0.01-0.20); Immature Granulocytes % (auto) 0.4 %; Lymphocytes # (auto) 1.17 K/uL (1.2-3.4); Lymphocytes % (auto) 7.3 %; Mean Corpuscular Hemoglobin 32.2 pg (25.0-34.0); Mean Corpuscular Hgb Conc 33.6 g/dL (32.0-36.0); Mean Corpuscular Volume 95.8 fL (80.0-100.0); Monocytes # (auto) 1.33 K/uL (0.11-0.59); Monocytes % (auto) 8.3 %; Neutrophils # (auto) 13.32 K/uL (1.40-6.50); Neutrophils % (auto) 83.4 %; Platelet Count 354 K/uL (130-400); RDW Coefficient of Variation 14.1 % (11.5-14.5); RDW Standard Deviation 49.8 fL (36.4-46.3); Red Blood Count 4.51 M/uL (4.70-6.10); White Blood Count 15.99 K/ul (4.8-10.8)
[2022-05-28 12:44] LABS: Base Excess VBG 1.7 mEq/L; HCO3 VBG 27 mmol/L; PCO2 VBG 42 mmHg (38-50); PO2 VBG 54 mmHg; pH VBG 7.41 (7.36-7.41)
[2022-05-28 13:00] LABS: Albumin Globulin Ratio 1.3 (0.9-2); Albumin Level 4.3 gm/dl (3.4-5.0); BUN Creatinine Ratio 16.7 (10-20); Calcium 10.1 mg/dl (8.6-10.3); Creatinine Clr Calc Pharmacy 31.1 ml/min; Est GFR (African American) 29.2 ml/min; Est GFR (Non-African American) 25.2 ml/min; Globulin 3.3 gm/dl (2.5-4.0); Magnesium 1.9 mg/dl (1.7-2.4); Potassium 4.9 mmol/L (3.5-5.1); Total Protein 7.6 gm/dl (6.0-8.3)
[2022-05-28 13:06] LABS: Troponin I High Sensitivity 14.1 pg/ml (0-20)
[2022-05-28 13:08] LABS: Influenza A virus by PCR Negative (Neg); Influenza B virus by PCR Negative (Neg); RSV by PCR Negative (Neg); SARS CoV2 RNA(COVID-19) Ceph NEGATIVE (Negative)
[2022-05-28 13:13] LABS: INR 2.2 (0.9-1.1); Partial Thromboplastin Ratio 1.5; Prothrombin Time 22.6 Seconds (9.0-12.0)
[2022-05-28] MEDS ORDERED: AZITHROMYCIN 250 MG TAB PO ONE (14:18)
[2022-05-28] MEDS ORDERED: cefTRIAXone SODIUM 1,000 MG in DEXTROSE 5% AD-VAN 50 ML IV STA (14:18)
--- NOTE | 2022-05-28 14:45 | History & Physical Report ---
Date of Service May 28, 2022 Assessment & Plan (1) CAP (community acquired pneumonia): Plan: Acute hypoxic respiratory failure 2/2 CAP Continue Rocephin/azithromycin Patient with leukocytosis, increased oxygen requirements, and asymmetric densities on CXR SPO2 goal 89-94%, do not BNP is slightly elevated, however clinically patient is without significant leg edema and does not feel like he is fluid overloaded and denies orthopnea. Interstitial lung disease Last saw pulmonology 10/2021 Restrictive lung disease with body habitus, ILD. Recommended for weight loss, and continued inhaler use. ILD of unclear origin. Invasive bronchoscopy/biopsy likely to poorly tolerated due to patient's comorbidity, was not recommended at follow-up and would require tertiary care evaluation if recommended. PFTs stable. 09/2021 PFT: FVC 66% predicted (2.22), FEV1 74% predicted (1.81), FEV1/FVC ratio 111% predicted (81), reduced DLCO which corrects for alveolar ventilation. Stable from prior. Continue ASV nightly Continue home inhalers Stage III CKD With history of past HTN and DM Lisinopril held, resume 05/28 Avoid NSAIDs BMP daily Renally dose medications Type II DM Basal 20 units twice daily, basal based SSI CF 20, carb ratio 7 Goal BSG [id number] Glucose checks AC/at bedtime Hypertension Continue home meds CVA 2018 Some residual expressive aphasia, thought to be embolic Continued on warfarin which is therapeutic Chronic aortic dissection Follows with vascular, annual screening No acute changes at last interval screening, continue to follow as outpatient (2) Type 2 diabetes mellitus with complications: (3) Status post mitral valve annuloplasty: (4) Diabetic peripheral neuropathy associated with type 2 diabetes mellitus: (5) Diabetes mellitus type 2, controlled: (6) AF (atrial fibrillation): (7) Stage 3b chronic kidney disease: (8) Pulmonary hypertension: (9) Complex sleep apnea syndrome: (10) Coronary atherosclerosis of [place] coronary vessel: History of Present Illness Primary Care Provider: Marco Velasco MD Viot Babb is a 72-year-old male with a past medical history of type II DM, A-fib on warfarin, CKD, hyperlipidemia, CAD, ILD presents with suspected pneumonia. "Juan" is seen at the bedside. He reports his breathign has been poor 'for a long time' and used to use 2L at night, but in the last week has had more cough, sputum production which is dark tinged yellow, increased shortness of breath and has been using his oxygen during the day for last week. Had fevers and chills for one night 3 days ago, no fevers/chills last few nights. Denies wheezing. No nausea/vomiting. No nausea/vomiting/diarrhea/constipation/abdominal pain. is also sick and has cold. Pt took tylenol thi smorning. Takes warfarin at night, 3mg every night. Takes ranexa for chest pain. Denies history of bipass or mitral valve repair in 2007 for severe MR, coronary artery disease (small apical LAD disease in 09/2018 and otherwise nonobstructive disease). Medical History: Reviewed Medications: Reviewed Surgical History: Reviewed Family history: Reviewed Allergies: Reviewed. NKDA, did not tolerate trulicty Social History: Denies current or former tobacco use. Denies ETOH use. Code Status: Full Code CXR: Right lung opacities suspicious for asymmetric edema versus pneumonia. Leukocytosis of 15 INR therapeutic at 2.2 VBG 7.4 / Creatinine baseline previously around 1.7, recently up to 2.3, 2.46 on admission Mag 1.9 Lactate normal BNP 211, Last 04/2021 was 122 Procalcitonin normal Troponin normal Allergies Allergy/AdvReac Type Severity Reaction Status Date / Time dulaglutide [From [facility]] AdvReac Intermediate Diarrhea , Verified 05/28/22 09:36 nausea Home Medications Medication Instructions Recorded Confirmed Type cholecalciferol (vitamin D3) 25 1,000 units PO QDL 10/04/18 05/28/22 History mcg (1,000 unit) tablet albuterol sulfate 90 mcg/actuation 1 - 2 puff inhalation Q4H PRN 12/27/19 05/28/22 Rx aerosol inhaler shortness of breath #18 grams cyanocobalamin (vitamin B-12) 100 100 mcg PO 3XWK 12/27/19 05/28/22 History mcg tablet multivitamin (Daily Multi-Vitamin 1 tab PO QAM 03/15/20 05/28/22 History tablet) tramadol 50 mg tablet 50 mg PO Q8H PRN pain #180 tabs 04/15/21 05/28/22 Rx omega 3-nat-rqc-fish oil 1,000 mg 1 cap PO QAM 06/10/21 05/28/22 History (120 mg-180 mg) capsule (Fish Oil) phenazopyridine 95 mg tablet 95 mg PO QAM 08/14/21 05/28/22 History Oxygen Home #1 ea 08/27/21 05/28/22 Rx insulin aspart U-100 100 unit/mL See Rx Instructions .Route 08/27/21 05/28/22 Rx (3 mL) subcutaneous pen (Novolog .COMPLEX #15 mL FlexPen U-100 Insulin aspart) blood-glucose sensor (Dexcom G6 #3 ea 09/04/21 05/28/22 Rx Sensor device) blood-glucose transmitter (Dexcom #1 ea 09/04/21 05/28/22 Rx G6 Transmitter device) diltiazem HCl 180 mg 180 mg PO BID 90 days #180 caps 09/16/21 05/28/22 Rx capsule,extended release 24 hr furosemide 40 mg tablet 40 mg PO QAM #90 tabs 09/16/21 05/28/22 Rx fenofibrate nanocrystallized 48 mg 48 mg PO QDL #90 tabs 11/03/21 05/28/22 Rx tablet metoprolol tartrate 25 mg tablet 25 mg PO BID #180 tabs 11/03/21 05/28/22 Rx lisinopril 5 mg tablet 5 mg PO DAILY #90 tabs 11/07/21 05/28/22 Rx pregabalin 100 mg capsule 100 mg PO TID #270 caps 11/17/21 05/28/22 Rx warfarin 3 mg tablet 3 mg PO HS #90 tabs 12/02/21 05/28/22 Rx tamsulosin 0.4 mg capsule 0.4 mg PO QAM #90 caps 12/15/21 05/28/22 Rx ranolazine 1,000 mg 1,000 mg PO Q12H #60 tabs 02/02/22 05/28/22 Rx tablet,extended release,12 hr rosuvastatin 20 mg tablet (Crestor) 20 mg PO QAM #90 tabs 03/11/22 05/28/22 Rx fluticasone furoate 50 1 inh inhalation QAM #90 ea 03/20/22 05/28/22 Rx mcg/actuation blister powder for inhalation (Arnuity Ellipta) ascorbic acid (vitamin C) 1,000 mg 1 g PO DAILY #90 caps 03/24/22 05/28/22 Rx capsule cinnamon bark 500 mg capsule 500 mg PO DAILY #30 caps 03/24/22 05/28/22 Rx (Cinnamon) pen needle, diabetic 32 gauge x #200 ea 04/14/22 05/28/22 Rx 5/32" (BD Reyna 2nd Gen Pen Needle) insulin degludec 200 unit/mL (3 40 unit (0.2 mL) subcut BID #9 mL 05/15/22 05/28/22 Rx mL) subcutaneous pen (Tresiba FlexTouch U-200 insulin) Past Med/Surg History Medical History Abdominal aortic aneurysm dissection "infrarenal aortic dissection extending into right common iliac and right proximal mid external iliac arteries": Annual surveillance (stable), monitored by [facility] vascular surgery Acute UTI Atrial fibrillation 2020 follow with [facility] Bilateral renal cysts BPH with obstruction/lower urinary tract symptoms CKD stage 3 due to type 2 diabetes mellitus follows with [facility] Baseline creatinine 1.7-2.0 per nephrology notes Complex sleep apnea syndrome ASV machine with 2L supplemental oxygen nightly-compliant, follows with [facility] Congestive heart failure EF 50-55% 09/2020 echo Coronary atherosclerosis of [place] coronary vessel Severe 80-90% apical LAD disease. Moderate non-obstructive proximal-mid LAD (FFR 0.83). Mild-moderate multivessel disease- 30-40% proximal OM1, mid circumflex, mid RCA 10/12/18 cath: Distal LAD disease is low risk involving small vessel at the apex. Recommend trial of additional antianginal therapy, start Imdur. If persistent symptoms could consider POBA +/- stent to LAD. Diabetic nephropathy associated with type 2 diabetes mellitus Diabetic polyneuropathy B/L LE Dyslipidemia Encounter for pre-operative examination Gastroparesis History of anemia History of blood transfusion during mitral valve repair per pt Hypertension controlled, stable per pt Interstitial lung disease monitoring per [facility] Lumbar back pain Pulmonary hypertension Moderate 09/2020 echo, "suspected secondary to elevated end-diastolic pressure, obesity, restrictive lung disease, hypoxemia and sleep disordered breathing: Would not recommend consideration for any pulmonary vasodilators at this point" follows with [facility]; Right heart cath 07/11/21: Normal left and right-sided filling pressures. Normal pulmonary artery pressure. Restrictive lung disease Stroke 2019, embolic, 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 CVA post cardiac catheterization, mild residual aphasia Surgical History History of cardiac cath no stents History of colonoscopy History of cystoscopy Left Ureteronephroscopy 08/24/2019: Grade 3 view, MAC#3.0, ETT#8.0. No issues per anesthesia postop progress note. History of mitral valve replacement 2007, [facility] History of shoulder surgery RT/LEFT History of surgical removal of pilonidal cyst History of tooth extraction History of total left knee replacement Family History Mother Colon cancer Diabetes Grandmother Multiple sclerosis Father Diabetes Coronary heart disease Myocardial infarction Grandfather Stroke Sister Diabetes Hypertension Brother Diabetes Hypertension Son Depression Hypertension Other No family history of adverse response to anesthesia Denies family history of Ovarian cancer Prostate cancer Breast cancer Social History Smoking Status: Never smoker Second Hand Exposure: No; Hx Alcohol Use: No Hx Substance Use: No Preferred Language: Algerian Communication Ability: Effective Visual Impairment: No Limitations Hearing Ability: Normal Inspector General Required: No Beliefs That Will Affect Care: None marital status: Current Living Situation: Spouse current occupational status: retired current occupation: Former [employer] How many Children do You have: 2 Feels Safe at Home: Yes Childhood Exposure to Second-Hand Smoke: No Dental Care, Regularly: No Physical Activity Frequency: Does not Exercise Seatbelt Use: always Sunscreen Use: No Assistive Devices: Cane and Walker Review of Systems Review of Systems: All systems reviewed & are unremarkable except as noted in HPI & below Physical Exam Physical Exam: General: A&Ox3. NAD. Cooperative. HEENT: Atraumatic, normocephalic. EoM intact. Vision intact. Hearing intact. TAMIR Pulm: Course in the bases, no wheezing. Symmetrical chest rise. No increased work of breathing. No respiratory distress. Cardiac: irir, +sm. Radial pulses intact and symmetrical. Abdominal: Softly distended, NT. BS present. Ext: warm, dry. Moves all extremities equally. No pitting edema. Results & Data Results & Data Vital Signs (Past 12 Hours) Vital Signs Temp Pulse Pulse Resp BP BP Pulse Ox 05/28/22 13:35 90 20 135/76 93 05/28/22 12:59 87 20 121/67 92 05/28/22 12:06 100 H 05/28/22 12:33 88 22 107/60 93 05/28/22 12:06 93 05/28/22 12:06 88 24 100/63 93 05/28/22 11:36 87 L 05/28/22 11:30 36.9 C 92 H 26 H 90/53 L 87 L O2 Del Method O2 Flow Rate 05/28/22 13:35 Nasal Cannula 2 05/28/22 12:59 Nasal Cannula 2 05/28/22 12:06 05/28/22 12:33 Nasal Cannula 2 05/28/22 12:06 Nasal Cannula 2 05/28/22 12:06 Nasal Cannula 2 05/28/22 11:36 Nasal Cannula 0 05/28/22 11:30 Room Air PG Care Time/CCT Total # of Minutes Spent Total Time Spent with Patient: Total time spent is greater than 50% in coordination of care (as documented) at patient's floor/unit and/or counseling patient: Coding Level of Care Code 51077 INT INP/OBS CARE 3/75MIN Diagnoses CAP (community acquired pneumonia) J18.9 Type 2 diabetes mellitus with complications E11.8 Status post mitral valve annuloplasty Z98.890 Diabetic peripheral neuropathy associated with type 2 diabetes mellitus E11.42 Diabetes mellitus type 2, controlled E11.9 AF (atrial fibrillation) I48.91 Stage 3b chronic kidney disease N18.32 Pulmonary hypertension I27.20 Complex sleep apnea syndrome G47.31 Coronary atherosclerosis of [place] coronary vessel I25.10 [place] vs. transplanted heart: [place] heart Associated angina: without angina (10) Coronary atherosclerosis of [place] coronary vessel [place] vs. transplanted heart: [place] heart Associated angina: without angina Qualified Code(s): I25.10 - Atherosclerotic heart disease of [place] coronary artery without angina pectoris
[2022-05-28] MEDS ORDERED: SODIUM CHLORIDE 0.9% 500 ML IV SCH (15:00)
[2022-05-28] MEDS ORDERED: GLUCAGON FOR INJ 1 MG VIAL SQ PRN (15:05)
[2022-05-28] MEDS ORDERED: GLUCOSE 40% GEL 15 GM TUBE PO PRN (15:05)
[2022-05-28] MEDS ORDERED: DEXTROSE 50% 50 ML SYRINGE IV PRN (15:05)
[2022-05-28] MEDS ORDERED: GLUCOSE 10 TAB/TUBE PO PRN (15:05)
[2022-05-28] MEDS ORDERED: CARBOHYDRATES FOR HYPOGLYCEMIA PO PRN (15:05)
[2022-05-28] MEDS ORDERED: ACETAMINOPHEN 325 MG TAB PO PRN (16:05)
[2022-05-28] MEDS: INSULIN ASPART PER UNIT CHARGE SC SCH ×2 (17:10→21:00)
[2022-05-28] MEDS ORDERED: traMADol HCL 50 MG TABLET PO PRN (17:42)
[2022-05-28] MEDS: RANOLAZINE 500 MG ER TAB PO SCH (18:35)
[2022-05-28] MEDS: WARFARIN SOD 3 MG TAB PO SCH (18:35)
[2022-05-28] MEDS: guaiFENesin SUGAR FREE 100 MG/5 ML UDC PO PRN (18:36)
[2022-05-28] MEDS ORDERED: ACETAMINOPHEN 500 MG TAB PO STA (20:02)
[2022-05-28] MEDS ORDERED: diphenhydrAMINE Capsule 25 MG CAP PO ONE (20:02)
[2022-05-28] MEDS: METOPROLOL TARTRATE 25 MG TAB PO SCH (20:59)
[2022-05-28] MEDS: PREGABALIN 100 MG CAP PO SCH (20:59)
[2022-05-28] MEDS: LANTUS PER UNIT CHARGE SQ SCH (21:00)
[2022-05-29] MEDS: guaiFENesin SUGAR FREE 100 MG/5 ML UDC PO PRN ×2 (00:34→06:26)
[2022-05-29] MEDS: RANOLAZINE 500 MG ER TAB PO SCH ×2 (05:58→17:16)
[2022-05-29] MEDS ORDERED: COUGH DROP (SUGAR FREE) LOZ 24 LOZ/1 BOX BUCCAL ONE (07:34)
[2022-05-29] MEDS ORDERED: COUGH DROP (SUGAR FREE) LOZ 24 LOZ/1 BOX BUCCAL PRN (07:34)
[2022-05-29 07:52] LABS: Basophils # (auto) 0.02 K/uL (0-0.2); Basophils % (auto) 0.2 %; Eosinophils # (auto) 0.13 K/uL (0-0.50); Eosinophils % (auto) 1.3 %; Hematocrit (blood only) 42.4 % (42.0-52.0); Hemoglobin 14.2 g/dl (14.0-18.0); Immature Granulocytes # (auto) 0.08 K/uL (0.01-0.20); Immature Granulocytes % (auto) 0.8 %; Lymphocytes # (auto) 1.14 K/uL (1.2-3.4); Lymphocytes % (auto) 11.7 %; Mean Corpuscular Hemoglobin 32.2 pg (25.0-34.0); Mean Corpuscular Hgb Conc 33.5 g/dL (32.0-36.0); Mean Corpuscular Volume 96.1 fL (80.0-100.0); Mean Platelet Volume 9.9 fL (9.4-12.4); Monocytes # (auto) 0.96 K/uL (0.11-0.59); Monocytes % (auto) 9.9 %; Neutrophils % (auto) 76.1 %; Platelet Count 293 K/uL (130-400); RDW Standard Deviation 49.6 fL (36.4-46.3); Red Blood Count 4.41 M/uL (4.70-6.10); White Blood Count 9.73 K/ul (4.8-10.8)
[2022-05-29 08:02] LABS: BUN Creatinine Ratio 18.1 (10-20); Calcium 9.4 mg/dl (8.6-10.3); Est GFR (African American) 33.3 ml/min; Est GFR (Non-African American) 28.7 ml/min; Potassium 4.7 mmol/L (3.5-5.1)
[2022-05-29 08:21] LABS: INR 2.2 (0.9-1.1)
[2022-05-29] MEDS: FLUTICASONE FUROATE 100MCG 14 PUFFS/INHALER INH SCH (08:31)
[2022-05-29] MEDS: TAMSULOSIN HCL 0.4 MG CAP PO SCH (08:31)
[2022-05-29] MEDS: METOPROLOL TARTRATE 25 MG TAB PO SCH ×2 (08:31→21:34)
[2022-05-29] MEDS: ROSUVASTATIN CALCIUM 20 MG TAB PO SCH (08:32)
[2022-05-29] MEDS: INSULIN ASPART PER UNIT CHARGE SC SCH ×4 (08:35→21:33)
[2022-05-29] MEDS: LANTUS PER UNIT CHARGE SQ SCH ×2 (08:35→21:33)
[2022-05-29] MEDS: PREGABALIN 100 MG CAP PO SCH ×3 (08:35→21:36)
--- NOTE | 2022-05-29 08:37 | Hospitalist Progress Note ---
Date of Service May 29, 2022 Assessment & Plan (1) CAP (community acquired pneumonia): Plan: Acute hypoxic respiratory failure 2/2 CAP Continue Rocephin/azithromycin Chronic unstable interstitial lung disease systemic complication Last saw pulmonology 10/2021 Restrictive lung disease with body habitus, ILD. Recommended for weight loss, and continued inhaler use. ILD of unclear origin. Invasive bronchoscopy/biopsy likely to poorly tolerated due to patient's comorbidity, was not recommended at follow-up and would require tertiary care evaluation if recommended. PFTs stable. 09/2021 PFT: FVC 66% predicted (2.22), FEV1 74% predicted (1.81), FEV1/FVC ratio 111% predicted (81), reduced DLCO which corrects for alveolar ventilation. Stable from prior. Continue ASV nightly Continue home inhalers Chronic and stable stage III CKD With history of past HTN and DM Continue lisinopril Type II DM chronic stable Basal 20 units twice daily, basal based SSI CF 20, carb ratio 7 Goal BSG [id number] Glucose checks AC/at bedtime Hypertension chronic stable chronic afib, stable, has had systemic complications in past with embolic cva rate controlled with b gilberto, anticoagulated with warfarin CVA 2018, chronic stable Some residual expressive aphasia, thought to be embolic Continued on warfarin which is therapeutic, warfarin as afib associated with valvular heart disease s/p mitral valve annuloplasty Chronic aortic dissection, chronic stable Follows with vascular, annual screening No acute changes at last interval screening, continue to follow as outpatient Admission and Anticipated Discharge Date Admission Date: May 28, 2022 Subjective PT feels somewhat improved still with cough and shortness of breath Physical Exam Physical Exam: bibasilar rales, no focal loss of breath sounds. Results & Data Results & Data Vital Signs (Past 12 Hours) Vital Signs Temp Pulse Pulse Resp BP Pulse Ox O2 Del Method 05/29/22 07:22 97.9 F 82 20 99/63 L 92 Nasal Cannula 05/29/22 07:04 84 05/29/22 02:45 97.7 F 76 18 133/63 96 Nasal Cannula 05/28/22 23:37 84 05/28/22 23:06 98.1 F 73 18 110/54 L 96 Nasal Cannula O2 Flow Rate 05/29/22 07:22 3 05/29/22 07:04 05/29/22 02:45 2 05/28/22 23:37 05/28/22 23:06 3 Laboratory Results Reviewed CBC reviewed PRP reviewed coagulation studies PG Care Time/CCT Total # of Minutes Spent Total Time Spent with Patient: Total time spent is greater than 50% in coordination of care (as documented) at patient's floor/unit and/or counseling patient: Coding Level of Care Code 14346 SUB INP/OBS CARE 2/35MIN Diagnoses CAP (community acquired pneumonia) J18.9
[2022-05-29] MEDS: AZITHROMYCIN 250 MG TAB PO SCH (09:09)
[2022-05-29] MEDS: guaiFENesin/DEXTROM SYRUP 200MG/20MG 10ML UDC PO PRN ×2 (15:06→21:35)
[2022-05-29] MEDS: cefTRIAXone SODIUM 2,000 MG in DEXTROSE 5% 50 ML IV SCH (15:06)
[2022-05-29] MEDS: WARFARIN SOD 3 MG TAB PO SCH (16:17)
[2022-05-29] MEDS ORDERED: MELATONIN 3 MG TAB PO PRN (19:57)
--- NOTE | 2022-05-29 22:17 | Electrocardiogram Report ---
Test Reason : Blood Pressure : / mmHG Vent. Rate : 102 BPM Atrial Rate : 125 BPM P-R Int : 000 ms QRS Dur : 118 ms QT Int : 362 ms P-R-T Axes : 000 142 040 degrees QTc Int : 471 ms Poor data quality, interpretation may be adversely affected Atrial fibrillation with rapid ventricular response Non-specific intra-ventricular conduction delay Poor R wave progression, consider anterior MS vs. lead placement vs. LVH Abnormal ECG When compared with ECG of 18-JUL-2021 14:20, No significant change Confirmed by Jamey Evans ([id number]) on 05/29/2022 10:16:49 PM Referred By: REFERRED SELF Confirmed By:Jamey Evans
[2022-05-30] MEDS: RANOLAZINE 500 MG ER TAB PO SCH (05:49)
[2022-05-30] MEDS: INSULIN ASPART PER UNIT CHARGE SC SCH ×2 (09:10→12:51)
[2022-05-30] MEDS: LANTUS PER UNIT CHARGE SQ SCH (09:14)
[2022-05-30] MEDS: FLUTICASONE FUROATE 100MCG 14 PUFFS/INHALER INH SCH ×2 (09:20→09:44)
[2022-05-30] MEDS: AZITHROMYCIN 250 MG TAB PO SCH (09:24)
[2022-05-30] MEDS: METOPROLOL TARTRATE 25 MG TAB PO SCH (09:25)
[2022-05-30] MEDS: ROSUVASTATIN CALCIUM 20 MG TAB PO SCH (09:27)
[2022-05-30] MEDS: TAMSULOSIN HCL 0.4 MG CAP PO SCH (09:28)
[2022-05-30] MEDS: PREGABALIN 100 MG CAP PO SCH ×2 (09:39→13:18)
[2022-05-30] MEDS ORDERED: methylPREDNISolone 40 MG in SYRINGE 0 ML IV ONE (10:48)
[2022-05-30] MEDS: cefTRIAXone SODIUM 2,000 MG in DEXTROSE 5% 50 ML IV SCH (12:56)
--- NOTE | 2022-05-30 17:31 | Discharge Summary ---
Date of Service May 30, 2022 Admission HPI Per Admitting Provider Vito Babb is a 72-year-old male with a past medical history of type II DM, A- fib on warfarin, CKD, hyperlipidemia, CAD, ILD presents with suspected pneumonia. "Juan" is seen at the bedside. He reports his breathign has been poor 'for a long time' and used to use 2L at night, but in the last week has had more cough, sputum production which is dark tinged yellow, increased shortness of breath and has been using his oxygen during the day for last week. Had fevers and chills for one night 3 days ago, no fevers/chills last few nights. Denies wheezing. No nausea/vomiting. No nausea/vomiting/diarrhea/constipation/abdominal pain. is also sick and has cold. Pt took tylenol thi smorning. Takes warfarin at night, 3mg every night. Takes ranexa for chest pain. Denies history of bipass or mitral valve repair in 2007 for severe MR, coronary artery disease (small apical LAD disease in 09/2018 and otherwise nonobstructive disease). Medical History: Reviewed Medications: Reviewed Surgical History: Reviewed Family history: Reviewed Allergies: Reviewed. NKDA, did not tolerate trulicty Social History: Denies current or former tobacco use. Denies ETOH use. Code Status: Full Code CXR: Right lung opacities suspicious for asymmetric edema versus pneumonia. Leukocytosis of 15 INR therapeutic at 2.2 VBG 7.4 / Creatinine baseline previously around 1.7, recently up to 2.3, 2.46 on admission Mag 1.9 Lactate normal BNP 211, Last 04/2021 was 122 Procalcitonin normal Troponin normal Principal Diagnosis Community-acquired pneumonia Chronic hypoxic respiratory failure with exacerbation Discharge Exam Patient states he has been his normal state Lungs have decreased breath sounds at the bases with some expiratory wheezes. Subsequently patient sent home on a short burst of steroids Card exam is regular Discharge Data Allergies Allergy/AdvReac Type Severity Reaction Status Date / Time dulaglutide [From [facility]] AdvReac Intermediate Diarrhea , Verified 05/28/22 09:36 nausea Consultations 05/28/22 14:22 ED Decision to Admit Stat Hospital Course (1) CAP (community acquired pneumonia): Acute hypoxic respiratory failure 2/2 CAP Continue Rocephin/azithromycin, cefdinir and azithromycin at home with 4-day course of prednisone given 40 mg intravenous Solu-Medrol prior to going home Chronic unstable interstitial lung disease systemic complication Last saw pulmonology 10/2021 Restrictive lung disease with body habitus, ILD. Recommended for weight loss, and continued inhaler use. ILD of unclear origin. Invasive bronchoscopy/biopsy likely to poorly tolerated due to patient's comorbidity, was not recommended at follow-up and would require tertiary care evaluation if recommended. PFTs stable. 09/2021 PFT: FVC 66% predicted (2.22), FEV1 74% predicted (1.81), FEV1/FVC ratio 111% predicted (81), reduced DLCO which corrects for alveolar ventilation. Stable from prior. Continue home inhalers Chronic and stable stage III CKD With history of past HTN and DM Continue lisinopril Type II DM chronic stable Resume home diabetic management Hypertension chronic stable chronic afib, stable, has had systemic complications in past with embolic cva rate controlled with b gilberto, anticoagulated with warfarin CVA 2018, chronic stable Some residual expressive aphasia, thought to be embolic Continued on warfarin which is therapeutic, warfarin as afib associated with valvular heart disease s/p mitral valve annuloplasty Chronic aortic dissection, chronic stable Follows with vascular, annual screening No acute changes at last interval screening, continue to follow as outpatient Total Time Total Time Spent Total Time Spent (In Minutes): It required greater than 30 minutes to prepare this patient for discharge Discharge Plan Discharge Items Patient Disposition: Home - Self-Care Reason For Visit: PNEUMONIA Discharge Diagnosis: pneumonia interstitial lung disease Activity: Per Instructions section Activity Comment: slowly increase activity Non-emergency contact: Primary Care Provider and Casework Specialist Call non-emergency contact if: your symptoms worsen Follow-up/Referrals: Marco Velasco MD [Primary Care Provider] - Diet: Carb Consistent or DM2 Addtl Attending Provider Instructions: Please complete all of your antibiotics please rest and recover please see your follow up provider, expect a phone call wednesday or wednesday, for a follow up appointement notification Pending Studies at Discharge: No Stand-Alone Forms: My [employer], Smoking Cessation Medications and DC Order Prescriptions: New azithromycin 250 mg Tablet 250 mg PO QAM Qty: 3 0RF cefdinir 300 mg capsule 300 mg PO BID 5 Days Qty: 10 0RF Rx Instructions: start 05/31/22 prednisone 10 mg tablet 40 mg PO DAILY Qty: 16 0RF Continued tramadol 50 mg tablet 50 mg PO Q8H PRN (Reason: pain) Qty: 180 3RF (DME) Oxygen Home Liters Per Minute See Rx Instructions .MEDSUPPLY Qty: 1 0RF Rx Instructions: 2 Liters per minute continuous insulin aspart U-100 [Novolog FlexPen U-100 Insulin] 100 unit/mL (3 mL) insulin pen See Rx Instructions .ROUTE .COMPLEX Qty: 15 3RF Dose Instruction: INJECT 20 UNITS (0.2MLS) SUBCUTANEOUSLY (UNDER THE SKIN) THREE TIMES DAILY WITH MEALS Rx Instructions: INJECT 20 UNITS (0.2MLS) SUBCUTANEOUSLY (UNDER THE SKIN) THREE TIMES DAILY WITH MEALS (DME) Dexcom G6 Sensor Device See Rx Instructions .Route Qty: 3 11RF Rx Instructions: use for blood sugar checks (DME) Dexcom G6 Transmitter Device See Rx Instructions .Route Qty: 1 3RF Rx Instructions: use for blood sugars change out every 90 days diltiazem HCl 180 mg capsule,extended release 24hr 180 mg PO BID 90 Days Qty: 180 3RF furosemide 40 mg tablet 40 mg PO QAM Qty: 90 3RF Rx Instructions: takes 6 days per week; not on Sundays fenofibrate nanocrystallized 48 mg tablet 48 mg PO QDL Qty: 90 3RF metoprolol tartrate 25 mg tablet 25 mg PO BID Qty: 180 3RF pregabalin 100 mg capsule 100 mg PO TID Qty: 270 3RF warfarin 3 mg tablet 3 mg PO HS Qty: 90 3RF Protocol: Dose Management Condition: Wednesday Dose/Route: 3 mg Instruction: 1 x 3 mg tablet Condition: Wednesday Dose/Route: 3 mg Instruction: 1 x 3 mg tablet Condition: Wednesday Dose/Route: 1.5 mg Instruction: 0.5 x 3 mg tablets Condition: Wednesday Dose/Route: 3 mg Instruction: 1 x 3 mg tablet Condition: Dose/Route: 3 mg Instruction: 1 x 3 mg tablet Condition: Wednesday Dose/Route: 3 mg Instruction: 1 x 3 mg tablet Condition: Wednesday Dose/Route: 3 mg Instruction: 1 x 3 mg tablet Protocol Text: Adjustment Start Date: Wednesday05/11/22 INR Value: 2.3 INR Date: 05/09/22 Recheck Date: 05/25/22 tamsulosin 0.4 mg capsule 0.4 mg PO QAM Qty: 90 3RF ranolazine 1,000 mg tablet extended release 12 hr 1,000 mg PO Q12H Qty: 60 6RF rosuvastatin [Crestor] 20 mg tablet 20 mg PO QAM Qty: 90 3RF Arnuity Ellipta 50 mcg/actuation blister with device 1 inh INH QAM Qty: 90 3RF (DME) pen needle, diabetic [BD Reyna 2nd Gen Pen Needle] 32 gauge x 5/32" needle See Rx Instructions .Route Qty: 200 8RF Rx Instructions: use for insulin injection up to six times daily insulin degludec [Tresiba FlexTouch U-200] 200 unit/mL (3 mL) insulin pen 40 unit subcut BID Qty: 9 6RF multivitamin [Daily Multi-Vitamin] Tablet 1 tab PO QAM albuterol sulfate 90 mcg/actuation HFA aerosol inhaler 1 - 2 puff inhalation Q4H PRN (Reason: shortness of breath) Qty: 18 3RF ascorbic acid (vitamin C) 1,000 mg capsule 1 g PO DAILY Qty: 90 0RF cinnamon bark [Cinnamon] 500 mg capsule 500 mg PO DAILY Qty: 30 0RF cholecalciferol (vitamin D3) 1,000 unit (25 mcg) tablet 1,000 units PO QDL cyanocobalamin (vitamin B-12) 100 mcg tablet 100 mcg PO Q2D omega 6-ugp-jvz-fish oil [Fish Oil] 1,000 mg (120 mg-180 mg) Capsule 1 cap PO QAM lisinopril 5 mg Tablet 10 mg PO DAILY Beet Root tablet 1,000 mg PO DAILY Discharge Orders: Discharge Order (Routine); Ordered 05/30/22 Ordered By: Roni Worthington Admission Data Admit Date/Time: 05/28/22 15:04 Attending Provider: Roni Worthington Admit Provider: Kal Banda Primary Care Provider: Marco Velasco Other Providers: Kal Banda Other Interventions: Discharge Summary Assessment (RN) Last Done: 05/30/22 11:21 Coding Level of Care Code 95572 INP/OBS DISCH >30 MIN Diagnoses CAP (community acquired pneumonia) J18.9
== END 2022-05-30 14:35 | disposition home or self-care (01) ==
LOC: ED 11:25 → INTOOBSV 15:04 → 2N 15:04 → SUATTDRO 15:04 → 2N 15:32

== ENCOUNTER 2022-06-15 09:45 | Inpatient (IN) ==
[2022-06-15] MEDS: SODIUM CHLORIDE 0.9% 1000ML 1,000 ML IV SCH ×2 (10:15→10:47)
[2022-06-15 10:32] LABS: Basophils # (auto) 0.02 K/uL (0-0.2); Basophils % (auto) 0.2 %; Eosinophils # (auto) 0.12 K/uL (0-0.50); Eosinophils % (auto) 1.1 %; Hematocrit (blood only) 40.7 % (42.0-52.0); Hemoglobin 13.9 g/dl (14.0-18.0); Immature Granulocytes # (auto) 0.06 K/uL (0.01-0.20); Immature Granulocytes % (auto) 0.5 %; Lymphocytes # (auto) 1.03 K/uL (1.2-3.4); Lymphocytes % (auto) 9.2 %; Mean Corpuscular Hemoglobin 32.6 pg (25.0-34.0); Mean Corpuscular Hgb Conc 34.2 g/dL (32.0-36.0); Mean Corpuscular Volume 95.5 fL (80.0-100.0); Mean Platelet Volume 9.8 fL (9.4-12.4); Monocytes # (auto) 0.76 K/uL (0.11-0.59); Monocytes % (auto) 6.8 %; Neutrophils # (auto) 9.24 K/uL (1.40-6.50); Neutrophils % (auto) 82.2 %; Platelet Count 234 K/uL (130-400); RDW Coefficient of Variation 13.6 % (11.5-14.5); RDW Standard Deviation 47.7 fL (36.4-46.3); Red Blood Count 4.26 M/uL (4.70-6.10); White Blood Count 11.23 K/ul (4.8-10.8)
--- NOTE | 2022-06-15 10:34 | Emergency Department Note ---
Impression & Plan Syncope and collapse, Acute hypotension ED Provider Note INFORMANT: Patient ED PROVIDER(S): Owen Delgado MD CHIEF COMPLAINT: Syncope PLAN: Disposition: Admitted Condition: Guarded Outpatient prescription management: none Referral: None MEDICAL DECISION MAKING: Patient presented because of a syncopal episode. He was hypotensive. He had an IV established. Fluid boluses were started. Patient was feeling somewhat better. He was still having persistent hypotension and required a second liter and then third 1 had to be to be started. Record review indicates the patient has had low blood pressures but he is 10-20 points below average. He is also mildly bradycardic. Blood work revealed a mild leukocytosis and mild GRACIE. Patient does have some baseline renal insufficiency. ECG showed atrial fibrillation without ischemia. Chest x-ray was unremarkable. Head CT was negative. Urinalysis did not reveal any gross abnormalities. The patient had a consultation placed with internal medicine patient was evaluated in the ER for further management and admission. We discussed the possible etiologies of his hypotension. It is not clear at this time but the patient has been covered for sepsis. His lactate and procalcitonin were negative. Myself and both internal medicine providers asked the patient about any medication issues and he denied. Critical care was consulted by internal medicine and during their review with the patient his was present and the patient had spilled his medication organizer earlier this week. He does not think that he got any doses messed up but that could possibly explain the issue if he got an extra dose of diltiazem or metoprolol. Patient was admitted for further management. Discussed with channel development manager After review of the information above and other included data, I feel the patient requires admission. Triage Nursing notes reviewed and agree them. Vital Signs: reviewed and remarkable for hypotension and bradycardia Prior /Outside records reviewed: Prior hospitalization record reviewed. Differential diagnosis: Infection, dehydration, metabolic abnormality, hypo/hyperglycemia, electrolyte disturbance, anemia, hypoxia, cardiac sources, intracerebral event, toxicologic, neurologic, as well as other pathologies. Diagnostics, as interpreted by me: ECG: Twelve-lead ECG reveals A-fib at 61 bpm. Right axis deviation. Low voltage QRS. No ST elevation or depression. No PVCs. Cardiac Monitoring: Cardiac monitoring ordered by me: The patient was placed on continuous cardiac monitoring and observed. It revealed atrial fibrillation at 51 bpm Medical decision rules: None Imaging studies: Chest x-ray. Findings: A chest x-ray was performed and revealed no pneumothorax, effusion, infiltrate, pulmonary edema, free air under the diaphragm, or wide mediastinum. Impression: No acute disease. Head CT: A noncontrast CT scan of the head was performed and was negative for tumor, fracture, intracranial hemorrhage, or other acute pathology. HPI: The patient is a 72year old male who presents to the Emergency Room with co mplaints of syncope. This started just prior to arrival and is currently resolved. Patient notes feeling somewhat lightheaded now. He states he was in his grandsons bedroom and then was feeling a little off. He then woke up on the floor. He denies any trauma. Patient is anticoagulated. After the fall he did have some slurred speech but that seemed to improve. EMS noted a systolic blood pressure of 150 however on ED arrival the patient was hypotensive with a blood pressure of 72/58. The patient also notes the following associated symptoms, none. The patient has been given no medication for relieving factors. Current pain is rated as 0/10. Patient was recently admitted and treated for community- acquired pneumonia. Pt denies headache, fevers, chills, diaphoresis, visual changes, neck pain, chest pain, breathing difficulties, nausea, vomiting, abdominal pain, back pain, melena, hematochezia, urinary symptoms, numbness, lymphadenopathy, rash, or other complaints. PAST MEDICAL HISTORY: See Below, A-fib, anticoagulated, pneumonia PAST SURGICAL HISTORY: See Below, valve repair SOCIAL HISTORY: See Below, retired HOME MEDICATIONS: See Below ALLERGIES: See Below VITALS: See Below PHYSICAL EXAMINATION: GENERAL: Awake, alert, tired-appearing, in no distress HENT: Normocephalic, atraumatic. Oropharynx unremarkable. EYES: Normal conjunctiva. Sclera non-icteric. NECK: Inspection normal. Non-tender. Supple. No nuchal rigidity. FROM. No masses. RESPIRATORY: Clear to auscultation. No wheezes. No rales. Normal respiratory effort. CARDIAC: Borderline but rate. Irregular rhythm. No murmurs. No rubs. Extremities warm and well perfused. Pulses equal. No JVD. GI: Soft, non-distended. No tenderness to palpation. No rebound or guarding. No masses. RECTAL: Deferred. MUSCULOSKELETAL: Atraumatic. Chest examination reveals no tenderness. The back is symmetrical on inspection without obvious abnormality. There is no CVA tenderness to palpation. No joint edema. LOWER EXTREMITIES: Calves are equal size bilaterally and non-tender. Trace edema. No discoloration. NEURO: Normal sensorium. No sensory or motor deficits noted. SKIN: No rash or jaundice noted. CRITICAL CARE: I have personally spent greater than 30 minutes of critical care time in the direct management of this patient. This includes bedside care, interpretation of diagnostic studies, and testing, discussion with consultants, patient, and other required patient management activities. This 30 minutes is in excess of all separately billable procedures. 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 Moderate non-obstructive proximal-mid LAD (FFR 0.83). Mild-moderate multivessel disease- 30-40% proximal OM1, mid circumflex, mid RCA 10/12/18 cath: Distal LAD disease is low risk involving small vessel at the apex. Recommend trial of additional antianginal therapy, start Imdur. If persistent symptoms could consider POBA +/- stent to LAD. Diabetic nephropathy associated with type 2 diabetes mellitus Diabetic polyneuropathy B/L LE Dyslipidemia Encounter for pre-operative examination Gastroparesis History of anemia History of blood transfusion during mitral valve repair per pt Hypertension controlled, stable per pt Interstitial lung disease monitoring per [facility] Lumbar back pain Pulmonary hypertension Moderate 09/2020 echo, "suspected secondary to elevated end-diastolic pressure, obesity, restrictive lung disease, hypoxemia and sleep disordered breathing: Would not recommend consideration for any pulmonary vasodilators at this point" follows with [facility]; Right heart cath 07/11/21: Normal left and right-sided filling pressures. Normal pulmonary artery pressure. Restrictive lung disease Stroke 2019, embolic, 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 CVA post cardiac catheterization, mild residual aphasia Surgical History History of cardiac cath no stents History of colonoscopy History of cystoscopy Left Ureteronephroscopy 08/24/2019: Grade 3 view, MAC#3.0, ETT#8.0. No issues per anesthesia postop progress note. [facility] History of shoulder surgery RT/LEFT History of surgical removal of pilonidal cyst History of tooth extraction History of total left knee replacement Family History Mother Colon cancer Diabetes Grandmother Multiple sclerosis Father Diabetes Coronary heart disease Myocardial infarction Grandfather Stroke Sister Diabetes Hypertension Brother Diabetes Hypertension Son Depression Hypertension Other No family history of adverse response to anesthesia Denies family history of Ovarian cancer Prostate cancer Breast cancer Social History Smoking Status: Never smoker Second Hand Exposure: No; Do You Dip or Chew Tobacco: No; Hx Alcohol Use: No Hx Substance Use: No Preferred Language: Danish Communication Ability: Effective Visual Impairment: No Limitations Hearing Ability: Normal Control Valve Mechanic Required: Yes Beliefs That Will Affect Care: None marital status: Current Living Situation: Spouse Current Living Situation Comment: live with and grown children current occupational status: retired current occupation: Former [employer] How many Children do You have: 2 Feels Safe at Home: Yes Childhood Exposure to Second-Hand Smoke: No Dental Care, Regularly: No Physical Activity Frequency: Does not Exercise Seatbelt Use: always Sunscreen Use: No Assistive Devices: Cane, Glasses, Oxygen - Continuous and Walker Allergies Allergies Allergy/AdvReac Type Severity Reaction Status Date / Time [facility]aglut[facility] AdvReac Intermediate Diarrhea , Verified 06/01/22 13:11 nausea Home Meds Home Medications Medication Instructions Recorded Confirmed cholecalciferol (vitamin D3) 25 1,000 units PO QDL 10/04/18 06/15/22 mcg (1,000 unit) tablet multivitamin (Daily Multi-Vitamin 1 tab PO QAM 03/15/20 06/15/22 tablet) omega 0-prk-baw-fish oil 1,000 mg 1 cap PO QAM 06/10/21 06/15/22 (120 mg-180 mg) capsule (Fish Oil) lisinopril 5 mg tablet 5 mg PO DAILY 05/29/22 06/15/22 calcium carbonate 600 mg calcium 600 mg PO DAILY 06/09/22 06/15/22 (1,500 mg) tablet (Calcium) cranberry 400 mg capsule 400 mg PO DAILY 06/09/22 06/15/22 cyanocobalamin (vitamin B-12) 100 1,000 mcg PO Q2D 06/09/22 06/15/22 mcg tablet docusate sodium 100 mg capsule 200 mg PO DAILY 06/09/22 06/15/22 tamsulosin 0.4 mg capsule 0.4 mg PO DAILY 06/12/22 06/15/22 Previous Rx's Medication Instructions Recorded Oxygen Home #1 ea 08/27/21 insulin aspart U-100 100 unit/mL See Rx Instructions .Route 08/27/21 (3 mL) subcutaneous pen (Novolog .COMPLEX #15 mL FlexPen U-100 Insulin aspart) blood-glucose sensor (Dexcom G6 #3 ea 09/04/21 Sensor device) blood-glucose transmitter (Dexcom #1 ea 09/04/21 G6 Transmitter device) diltiazem HCl 180 mg 180 mg PO BID 90 days #180 caps 09/16/21 capsule,extended release 24 hr furosemide 40 mg tablet 40 mg PO QAM #90 tabs 09/16/21 fenofibrate nanocrystallized 48 mg 48 mg PO QDL #90 tabs 11/03/21 tablet metoprolol tartrate 25 mg tablet 25 mg PO BID #180 tabs 11/03/21 warfarin 3 mg tablet 3 mg PO HS #90 tabs 12/02/21 ranolazine 1,000 mg 1,000 mg PO Q12H #60 tabs 02/02/22 tablet,extended release,12 hr rosuvastatin 20 mg tablet (Crestor) 20 mg PO QAM #90 tabs 03/11/22 fluticasone furoate 50 1 inh inhalation QAM #90 ea 03/20/22 mcg/actuation blister powder for inhalation (Arnuity Ellipta) ascorbic acid (vitamin C) 1,000 mg 1 g PO DAILY #90 caps 03/24/22 capsule pen needle, diabetic 32 gauge x #200 ea 04/14/2232" (BD Reyna 2nd Gen Pen Needle) insulin degludec 200 unit/mL (3 40 unit (0.2 mL) subcut BID #9 mL 05/15/22 mL) subcutaneous pen (Tresiba FlexTouch U-200 insulin) albuterol sulfate 90 mcg/actuation 1 - 2 puff inhalation Q4H PRN 06/04/22 aerosol inhaler shortness of breath #18 grams pregabalin 100 mg capsule 100 mg PO TID #270 caps 06/08/22 nitroglycerin 0.3 mg sublingual 0.3 mg sublingual Q5M PRN chest 06/09/22 tablet pain #10 tabs Results & Data (ED) Vital Signs Vital Signs - 24 hr 06/15/22 09:55 06/15/22 09:58 06/15/22 10:02 Temperature 36.4 C L Temperature Source Oral Pulse Rate 64 60 Pulse Rate [Apical] 58 L Pulse Rate from SpO2 Sensor Respiratory Rate 18 Respiratory Effort / Characteristics Non-Labored Spontaneous Respiratory Depth Normal Blood Pressure 72/38 L Blood Pressure [Right Arm] 88/40 L Blood Pressure Mean 49 Blood Pressure Mean [Right Arm] 56 Pulse Oximetry 96 Oxygen Delivery Method Nasal Cannula Oxygen Flow Rate 3 Sepsis Recent Fever Within 48 Hours No Sepsis New/Unexplained Change in Mental Status No Sepsis Action Taken by Nursing No Action Required 06/15/22 10:20 06/15/22 10:20 06/15/22 10:20 Temperature Temperature Source Pulse Rate Pulse Rate [Apical] Pulse Rate from SpO2 Sensor Respiratory Rate Respiratory Effort / Characteristics Respiratory Depth Blood Pressure Blood Pressure [Right Arm] 81/45 L Blood Pressure Mean Blood Pressure Mean [Right Arm] 57 Pulse Oximetry 97 97 Oxygen Delivery Method Nasal Cannula Nasal Cannula Oxygen Flow Rate 3 3 Sepsis Recent Fever Within 48 Hours Sepsis New/Unexplained Change in Mental Status Sepsis Action Taken by Nursing 06/15/22 10:35 06/15/22 10:49 06/15/22 11:08 Temperature Temperature Source Pulse Rate Pulse Rate [Apical] 51 L 51 L 57 L Pulse Rate from SpO2 Sensor Respiratory Rate 16 16 16 Respiratory Effort / Characteristics Non-Labored Spontaneous Non-Labored Non-Labored Respiratory Depth Normal Normal Normal Blood Pressure Blood Pressure [Right Arm] 82/40 L 87/48 L 79/38 L Blood Pressure Mean Blood Pressure Mean [Right Arm] 54 61 51 Pulse Oximetry 95 99 99 Oxygen Delivery Method Nasal Cannula Nasal Cannula Nasal Cannula Oxygen Flow Rate 3 3 3 Sepsis Recent Fever Within 48 Hours Sepsis New/Unexplained Change in Mental Status Sepsis Action Taken by Nursing 06/15/22 11:21 06/15/22 11:51 06/15/22 12:05 Temperature Temperature Source Pulse Rate Pulse Rate [Apical] 46 L 45 L Pulse Rate from SpO2 Sensor Respiratory Rate 16 Respiratory Effort / Characteristics Respiratory Depth Blood Pressure Blood Pressure [Right Arm] 90/45 L 80/41 L 100/36 L Blood Pressure Mean Blood Pressure Mean [Right Arm] 60 54 57 Pulse Oximetry 99 Oxygen Delivery Method Nasal Cannula Oxygen Flow Rate Sepsis Recent Fever Within 48 Hours Sepsis New/Unexplained Change in Mental Status Sepsis Action Taken by Nursing 06/15/22 12:20 06/15/22 12:56 06/15/22 13:26 Temperature Temperature Source Pulse Rate Pulse Rate [Apical] 54 L 52 L 53 L Pulse Rate from SpO2 Sensor Respiratory Rate 16 16 16 Respiratory Effort / Characteristics Non-Labored Spontaneous Respiratory Depth Normal Blood Pressure Blood Pressure [Right Arm] 85/43 L 91/42 L 88/41 L Blood Pressure Mean Blood Pressure Mean [Right Arm] 57 58 56 Pulse Oximetry 99 97 97 Oxygen Delivery Method Nasal Cannula Nasal Cannula Nasal Cannula Oxygen Flow Rate 3 3 Sepsis Recent Fever Within 48 Hours Sepsis New/Unexplained Change in Mental Status Sepsis Action Taken by Nursing 06/15/22 13:55 06/15/22 14:36 06/15/22 13:15 Temperature Temperature Source Pulse Rate 43 L 47 L Pulse Rate [Apical] 65 Pulse Rate from SpO2 Sensor 46 L Respiratory Rate 16 14 Respiratory Effort / Characteristics Non-Labored Respiratory Depth Normal Blood Pressure Blood Pressure [Right Arm] 92/54 L Blood Pressure Mean Blood Pressure Mean [Right Arm] 66 Pulse Oximetry 98 97 Oxygen Delivery Method Nasal Cannula Oxygen Flow Rate 3 Sepsis Recent Fever Within 48 Hours Sepsis New/Unexplained Change in Mental Status Sepsis Action Taken by Nursing 06/15/22 13:20 06/15/22 13:21 06/15/22 13:21 Temperature Temperature Source Pulse Rate 46 L 49 L Pulse Rate [Apical] Pulse Rate from SpO2 Sensor 51 L 47 L Respiratory Rate 17 15 Respiratory Effort / Characteristics Respiratory Depth Blood Pressure 64/46 L Blood Pressure [Right Arm] Blood Pressure Mean 52 Blood Pressure Mean [Right Arm] Pulse Oximetry 95 97 Oxygen Delivery Method Oxygen Flow Rate Sepsis Recent Fever Within 48 Hours Sepsis New/Unexplained Change in Mental Status Sepsis Action Taken by Nursing 06/15/22 13:23 06/15/22 13:23 06/15/22 13:25 Temperature Temperature Source Pulse Rate 50 L 49 L Pulse Rate [Apical] Pulse Rate from SpO2 Sensor 51 L 51 L Respiratory Rate 17 11 L Respiratory Effort / Characteristics Respiratory Depth Blood Pressure 76/34 L Blood Pressure [Right Arm] Blood Pressure Mean 48 Blood Pressure Mean [Right Arm] Pulse Oximetry 97 97 Oxygen Delivery Method Oxygen Flow Rate Sepsis Recent Fever Within 48 Hours Sepsis New/Unexplained Change in Mental Status Sepsis Action Taken by Nursing 06/15/22 13:25 06/15/22 13:30 06/15/22 13:30 Temperature Temperature Source Pulse Rate 50 L Pulse Rate [Apical] Pulse Rate from SpO2 Sensor 52 L Respiratory Rate 18 Respiratory Effort / Characteristics Respiratory Depth Blood Pressure 88/41 L 80/43 L Blood Pressure [Right Arm] Blood Pressure Mean 56 55 Blood Pressure Mean [Right Arm] Pulse Oximetry 95 Oxygen Delivery Method Oxygen Flow Rate Sepsis Recent Fever Within 48 Hours Sepsis New/Unexplained Change in Mental Status Sepsis Action Taken by Nursing 06/15/22 13:40 06/15/22 13:41 06/15/22 13:41 Temperature Temperature Source Pulse Rate 44 L 41 L Pulse Rate [Apical] Pulse Rate from SpO2 Sensor 51 L 49 L Respiratory Rate 10 L 17 Respiratory Effort / Characteristics Respiratory Depth Blood Pressure 79/39 L Blood Pressure [Right Arm] Blood Pressure Mean 52 Blood Pressure Mean [Right Arm] Pulse Oximetry 93 91 Oxygen Delivery Method Oxygen Flow Rate Sepsis Recent Fever Within 48 Hours Sepsis New/Unexplained Change in Mental Status Sepsis Action Taken by Nursing 06/15/22 13:50 06/15/22 13:57 06/15/22 13:57 Temperature Temperature Source Pulse Rate 47 L 51 L Pulse Rate [Apical] Pulse Rate from SpO2 Sensor 48 L 55 L Respiratory Rate 18 17 Respiratory Effort / Characteristics Respiratory Depth Blood Pressure 77/48 L Blood Pressure [Right Arm] Blood Pressure Mean 57 Blood Pressure Mean [Right Arm] Pulse Oximetry 97 97 Oxygen Delivery Method Oxygen Flow Rate Sepsis Recent Fever Within 48 Hours Sepsis New/Unexplained Change in Mental Status Sepsis Action Taken by Nursing 06/15/22 14:00 06/15/22 14:02 06/15/22 14:02 Temperature Temperature Source Pulse Rate 47 L Pulse Rate [Apical] Pulse Rate from SpO2 Sensor 51 L Respiratory Rate 17 Respiratory Effort / Characteristics Respiratory Depth Blood Pressure 82/49 L 82/49 L Blood Pressure [Right Arm] Blood Pressure Mean 60 60 Blood Pressure Mean [Right Arm] Pulse Oximetry 96 Oxygen Delivery Method Oxygen Flow Rate Sepsis Recent Fever Within 48 Hours Sepsis New/Unexplained Change in Mental Status Sepsis Action Taken by Nursing 06/15/22 14:02 06/15/22 14:06 06/15/22 14:06 Temperature Temperature Source Pulse Rate 52 L 51 L Pulse Rate [Apical] Pulse Rate from SpO2 Sensor 53 L 50 L Respiratory Rate 17 17 Respiratory Effort / Characteristics Respiratory Depth Blood Pressure 82/37 L Blood Pressure [Right Arm] Blood Pressure Mean 52 Blood Pressure Mean [Right Arm] Pulse Oximetry 91 97 Oxygen Delivery Method Oxygen Flow Rate Sepsis Recent Fever Within 48 Hours Sepsis New/Unexplained Change in Mental Status Sepsis Action Taken by Nursing 06/15/22 14:10 06/15/22 14:10 06/15/22 14:16 Temperature Temperature Source Pulse Rate 51 L 46 L Pulse Rate [Apical] Pulse Rate from SpO2 Sensor 50 L 48 L Respiratory Rate 16 11 L Respiratory Effort / Characteristics Respiratory Depth Blood Pressure 94/46 L Blood Pressure [Right Arm] Blood Pressure Mean 62 Blood Pressure Mean [Right Arm] Pulse Oximetry 98 96 Oxygen Delivery Method Oxygen Flow Rate Sepsis Recent Fever Within 48 Hours Sepsis New/Unexplained Change in Mental Status Sepsis Action Taken by Nursing 06/15/22 14:16 06/15/22 14:20 06/15/22 14:20 Temperature Temperature Source Pulse Rate 48 L Pulse Rate [Apical] Pulse Rate from SpO2 Sensor 48 L Respiratory Rate 15 Respiratory Effort / Characteristics Respiratory Depth Blood Pressure 98/44 L 84/57 L Blood Pressure [Right Arm] Blood Pressure Mean 62 66 Blood Pressure Mean [Right Arm] Pulse Oximetry 98 Oxygen Delivery Method Oxygen Flow Rate Sepsis Recent Fever Within 48 Hours Sepsis New/Unexplained Change in Mental Status Sepsis Action Taken by Nursing 06/15/22 14:26 06/15/22 14:26 06/15/22 14:30 Temperature Temperature Source Pulse Rate 58 L Pulse Rate [Apical] Pulse Rate from SpO2 Sensor 57 L Respiratory Rate 14 Respiratory Effort / Characteristics Respiratory Depth Blood Pressure 91/48 L 98/48 L Blood Pressure [Right Arm] Blood Pressure Mean 62 64 Blood Pressure Mean [Right Arm] Pulse Oximetry 98 Oxygen Delivery Method Oxygen Flow Rate Sepsis Recent Fever Within 48 Hours Sepsis New/Unexplained Change in Mental Status Sepsis Action Taken by Nursing 06/15/22 14:30 06/15/22 14:36 06/15/22 14:36 Temperature Temperature Source Pulse Rate 51 L Pulse Rate [Apical] Pulse Rate from SpO2 Sensor 49 L Respiratory Rate 13 Respiratory Effort / Characteristics Respiratory Depth Blood Pressure 92/54 L 92/54 L Blood Pressure [Right Arm] Blood Pressure Mean 66 66 Blood Pressure Mean [Right Arm] Pulse Oximetry 97 Oxygen Delivery Method Oxygen Flow Rate Sepsis Recent Fever Within 48 Hours Sepsis New/Unexplained Change in Mental Status Sepsis Action Taken by Nursing 06/15/22 14:36 06/15/22 14:40 06/15/22 14:41 Temperature Temperature Source Pulse Rate 66 49 L 55 L Pulse Rate [Apical] Pulse Rate from SpO2 Sensor 49 L 46 L 52 L Respiratory Rate 17 14 21 Respiratory Effort / Characteristics Respiratory Depth Blood Pressure Blood Pressure [Right Arm] Blood Pressure Mean Blood Pressure Mean [Right Arm] Pulse Oximetry 98 98 97 Oxygen Delivery Method Oxygen Flow Rate Sepsis Recent Fever Within 48 Hours Sepsis New/Unexplained Change in Mental Status Sepsis Action Taken by Nursing 06/15/22 14:41 06/15/22 14:47 06/15/22 14:47 Temperature Temperature Source Pulse Rate 63 Pulse Rate [Apical] Pulse Rate from SpO2 Sensor 53 L Respiratory Rate 19 Respiratory Effort / Characteristics Respiratory Depth Blood Pressure 104/49 L Blood Pressure [Right Arm] Blood Pressure Mean 67 43 Blood Pressure Mean [Right Arm] Pulse Oximetry 98 Oxygen Delivery Method Oxygen Flow Rate Sepsis Recent Fever Within 48 Hours Sepsis New/Unexplained Change in Mental Status Sepsis Action Taken by Nursing 06/15/22 14:50 06/15/22 14:51 06/15/22 14:51 Temperature Temperature Source Pulse Rate 44 L 58 L Pulse Rate [Apical] Pulse Rate from SpO2 Sensor 48 L 51 L Respiratory Rate 16 24 Respiratory Effort / Characteristics Respiratory Depth Blood Pressure 98/64 L Blood Pressure [Right Arm] Blood Pressure Mean 75 Blood Pressure Mean [Right Arm] Pulse Oximetry 98 94 Oxygen Delivery Method Oxygen Flow Rate Sepsis Recent Fever Within 48 Hours Sepsis New/Unexplained Change in Mental Status Sepsis Action Taken by Nursing 06/15/22 14:55 06/15/22 14:55 06/15/22 15:00 Temperature Temperature Source Pulse Rate 52 L Pulse Rate [Apical] Pulse Rate from SpO2 Sensor 52 L Respiratory Rate 13 Respiratory Effort / Characteristics Respiratory Depth Blood Pressure 92/52 L 82/58 L Blood Pressure [Right Arm] Blood Pressure Mean 65 66 Blood Pressure Mean [Right Arm] Pulse Oximetry 95 Oxygen Delivery Method Oxygen Flow Rate Sepsis Recent Fever Within 48 Hours Sepsis New/Unexplained Change in Mental Status Sepsis Action Taken by Nursing 06/15/22 15:00 06/15/22 15:06 06/15/22 15:06 Temperature Temperature Source Pulse Rate 50 L 52 L Pulse Rate [Apical] Pulse Rate from SpO2 Sensor 54 L 54 L Respiratory Rate 10 L 11 L Respiratory Effort / Characteristics Respiratory Depth Blood Pressure 95/41 L Blood Pressure [Right Arm] Blood Pressure Mean 59 Blood Pressure Mean [Right Arm] Pulse Oximetry 96 96 Oxygen Delivery Method Oxygen Flow Rate Sepsis Recent Fever Within 48 Hours Sepsis New/Unexplained Change in Mental Status Sepsis Action Taken by Nursing 06/15/22 15:10 06/15/22 15:51 Temperature Temperature Source Pulse Rate 53 L 51 L Pulse Rate [Apical] Pulse Rate from SpO2 Sensor 54 L Respiratory Rate 12 20 Respiratory Effort / Characteristics Respiratory Depth Blood Pressure 100/56 L 113/55 L Blood Pressure [Right Arm] Blood Pressure Mean 70 Blood Pressure Mean [Right Arm] Pulse Oximetry 96 98 Oxygen Delivery Method Nasal Cannula Oxygen Flow Rate 3 Sepsis Recent Fever Within 48 Hours Sepsis New/Unexplained Change in Mental Status Sepsis Action Taken by Nursing Laboratory Data 06/15/22 10:19 06/15/22 10:19 Lab Results 06/15/22 06/15/22 06/15/22 Range/Units 09:51 10:19 10:19 WBC 11.23 H (4.8-10.8) K/ul RBC 4.26 L (4.70-6.10) M/uL Hgb 13.9 L (14.0-18.0) g/dl Hct 40.7 L (42.0-52.0) % MCV 95.5 (80.0-100.0) fL MCH 32.6 (25.0-34.0) pg MCHC 34.2 (32.0-36.0) g/dL RDW Std Deviation 47.7 H (36.4-46.3) fL RDW Coeff of Romulo 13.6 (11.5-14.5) % Plt Count 234 (130-400) K/uL MPV 9.8 (9.4-12.4) fL Immature Gran % (Auto) 0.5 % Neut % (Auto) 82.2 % Lymph % (Auto) 9.2 % [place] % (Auto) 6.8 % Eos % (Auto) 1.1 % Baso % (Auto) 0.2 % Neut # (Auto) 9.24 H (1.40-6.50) K/uL Lymph # (Auto) 1.03 L (1.2-3.4) K/uL [place] # (Auto) 0.76 H (0.11-0.59) K/uL Eos # (Auto) 0.12 (0-0.50) K/uL Baso # (Auto) 0.02 (0-0.2) K/uL Immature Gran # (Auto) 0.06 (0.01-0.20) K/uL PT 30.3 H (9.0-12.0) Seconds INR 3.0 H (0.9-1.1) Sodium (136-145) mmol/L Potassium (3.5-5.1) mmol/L Chloride (98-107) mmol/L Carbon Dioxide (21-32) mmol/L Anion Gap (3-11) BUN (6-23) mg/dl Creatinine (0.6-1.4) mg/dl Est Cr Clr Drug Dosing ml/min Est GFR ( Amer) ml/min Est GFR (Non-Af Amer) ml/min BUN/Creatinine Ratio (10-20) Glucose (70-99(Fasting)) mg/dl POC Glucose 206 H (70-99) mg/dl Lactate (0.4-2.0) mmol/L Calcium (8.6-10.3) mg/dl Magnesium (1.7-2.4) mg/dl Total Bilirubin (0.2-1.0) mg/dl Direct Bilirubin (0-0.2) mg/dl AST (13-39) U/L ALT (7-52) U/L Alkaline Phosphatase (34-104) U/L Troponin I High Sens (0-20) pg/ml Total Protein (6.0-8.3) gm/dl Albumin (3.4-5.0) gm/dl Procalcitonin (0-0.5) ng/ml Random Cortisol mcg/dl SARS-CoV-2, RNA, NAAT (NEGATIVE) 06/15/22 06/15/22 06/15/22 Range/Units 10:19 10:19 10:19 WBC (4.8-10.8) K/ul RBC (4.70-6.10) M/uL Hgb (14.0-18.0) g/dl Hct (42.0-52.0) % MCV (80.0-100.0) fL MCH (25.0-34.0) pg MCHC (32.0-36.0) g/dL RDW Std Deviation (36.4-46.3) fL RDW Coeff of Romulo (11.5-14.5) % Plt Count (130-400) K/uL MPV (9.4-12.4) fL Immature Gran % (Auto) % Neut % (Auto) % Lymph % (Auto) % [place] % (Auto) % Eos % (Auto) % Baso % (Auto) % Neut # (Auto) (1.40-6.50) K/uL Lymph # (Auto) (1.2-3.4) K/uL [place] # (Auto) (0.11-0.59) K/uL Eos # (Auto) (0-0.50) K/uL Baso # (Auto) (0-0.2) K/uL Immature Gran # (Auto) (0.01-0.20) K/uL PT (9.0-12.0) Seconds INR (0.9-1.1) Sodium 138 (136-145) mmol/L Potassium 5.0 (3.5-5.1) mmol/L Chloride 102 (98-107) mmol/L Carbon Dioxide 29 (21-32) mmol/L Anion Gap 7 (3-11) BUN 52 H (6-23) mg/dl Creatinine 2.76 H (0.6-1.4) mg/dl Est Cr Clr Drug Dosing 27.8 ml/min Est GFR ( Amer) 25.4 ml/min Est GFR (Non-Af Amer) 21.9 ml/min BUN/Creatinine Ratio 18.8 (10-20) Glucose 202 H (70-99(Fasting)) mg/dl POC Glucose (70-99) mg/dl Lactate 1.5 (0.4-2.0) mmol/L Calcium 9.4 (8.6-10.3) mg/dl Magnesium 1.9 (1.7-2.4) mg/dl Total Bilirubin 0.7 (0.2-1.0) mg/dl Direct Bilirubin 0.1 (0-0.2) mg/dl AST 17 (13-39) U/L ALT 17 (7-52) U/L Alkaline Phosphatase 34 (34-104) U/L Troponin I High Sens 7.7 (0-20) pg/ml Total Protein 6.8 (6.0-8.3) gm/dl Albumin 4.3 (3.4-5.0) gm/dl Procalcitonin 0.07 (0-0.5) ng/ml Random Cortisol mcg/dl SARS-CoV-2, RNA, NAAT (NEGATIVE) 06/15/22 06/15/22 Range/Units 10:19 14:35 WBC (4.8-10.8) K/ul RBC (4.70-6.10) M/uL Hgb (14.0-18.0) g/dl Hct (42.0-52.0) % MCV (80.0-100.0) fL MCH (25.0-34.0) pg MCHC (32.0-36.0) g/dL RDW Std Deviation (36.4-46.3) fL RDW Coeff of Romulo (11.5-14.5) % Plt Count (130-400) K/uL MPV (9.4-12.4) fL Immature Gran % (Auto) % Neut % (Auto) % Lymph % (Auto) % [place] % (Auto) % Eos % (Auto) % Baso % (Auto) % Neut # (Auto) (1.40-6.50) K/uL Lymph # (Auto) (1.2-3.4) K/uL [place] # (Auto) (0.11-0.59) K/uL Eos # (Auto) (0-0.50) K/uL Baso # (Auto) (0-0.2) K/uL Immature Gran # (Auto) (0.01-0.20) K/uL PT (9.0-12.0) Seconds INR (0.9-1.1) Sodium (136-145) mmol/L Potassium (3.5-5.1) mmol/L Chloride (98-107) mmol/L Carbon Dioxide (21-32) mmol/L Anion Gap (3-11) BUN (6-23) mg/dl Creatinine (0.6-1.4) mg/dl Est Cr Clr Drug Dosing ml/min Est GFR ( Amer) ml/min Est GFR (Non-Af Amer) ml/min BUN/Creatinine Ratio (10-20) Glucose (70-99(Fasting)) mg/dl POC Glucose (70-99) mg/dl Lactate (0.4-2.0) mmol/L Calcium (8.6-10.3) mg/dl Magnesium (1.7-2.4) mg/dl Total Bilirubin (0.2-1.0) mg/dl Direct Bilirubin (0-0.2) mg/dl AST (13-39) U/L ALT (7-52) U/L Alkaline Phosphatase (34-104) U/L Troponin I High Sens (0-20) pg/ml Total Protein (6.0-8.3) gm/dl Albumin (3.4-5.0) gm/dl Procalcitonin (0-0.5) ng/ml Random Cortisol 17.24 mcg/dl SARS-CoV-2, RNA, NAAT NEGATIVE (NEGATIVE) Administered Medications Insulin Aspart (Insulin Aspart Per Unit Charge) 0 units SC Q4 FRANKIE Stop: 07/15/22 13:44 Last Admin: 06/15/22 15:53 Dose: Not Given Documented By: LUIS A Co-signed By: Discontinued Medications Hydrocortisone Sodium Succinate (Hydrocortisone Sod Succinate 100 Mg/2 Ml Vial) 100 mg IV NOW STA Stop: 06/15/22 13:03 Last Admin: 06/15/22 13:23 Dose: 100 mg Documented By: ALONDRA Sodium Chloride (Nss 1000ml) 1,000 mls @ 999 mls/hr IV .Q1H1M FRANKIE Stop: 06/15/22 12:15 Last Infusion: 06/15/22 11:51 Dose: 0 mls/hr Documented By: Admin: 06/15/22 10:47 Dose: 999 mls/hr Documented By: Infusion: 06/15/22 10:47 Dose: 999 mls/hr Documented By: Admin: 06/15/22 10:15 Dose: 999 mls/hr Documented By: ALONDRA Sodium Chloride (Nss 1000ml) 1,000 mls @ 999 mls/hr IV .Q1H1M ONE Stop: 06/15/22 13:08 Last Infusion: 06/15/22 13:12 Dose: 0 mls/hr Documented By: Admin: 06/15/22 12:08 Dose: 999 mls/hr Documented By: ALONDRA Cefepime HCl (Maxipime) 2,000 mg in 20 mls @ 5 mls/min IV NOW STA; Protocol Stop: 06/15/22 12:11 Last Admin: 06/15/22 12:19 Dose: 5 mls/min Documented By: ALONDRA Parenteral Electrolytes (Plasma-Lyte A Ph 7.4) 1,000 mls @ 999 mls/hr IV .Q1H1M ONE Stop: 06/15/22 15:56 Last Admin: 06/15/22 15:19 Dose: 999 mls/hr Documented By: LUIS A Imaging Data Radiologist's Impression: Chest X-Ray 06/15/22 10:05 XR chest 1V portable HISTORY: Sepsis COMPARISON: Chest 05/28/2022. FINDINGS: No pneumothorax. No pleural effusions. The cardiac silhouette is enlarged. A mitral valve ring is again noted. Interval resolution of the right lung airspace opacities. No evidence for pulmonary edema. IMPRESSION: Stable cardiomegaly. Otherwise, no acute process within the chest. ACT 112: Negative or not required by law. Electronically signed by: Tuan Knox M.D. 06/15/2022 10:[address] 06/15/22 10:39 CT head/brain wo con CLINICAL HISTORY: 72 years-old Male with syncope, fall. Acute head trauma status post fall TECHNIQUE: Multiple axial CT images of the head were obtained without contrast. A dose lowering technique was utilized adhering to the principles of ALARA. CT DOSE: 614.27 mGy.cm COMPARISON: 07/18/2021 FINDINGS: No acute intracranial hemorrhage, midline shift, intracranial mass, hydrocephalus, territorial ischemia or abnormal extra-axial collection. Encephalomalacia of the left frontal lobe again noted suggestive of chronic MCA infarct. Involutional changes with chronic microvascular ischemic disease. Cerebrovascular calcifications. The calvarium is intact. Minimal mucosal thickening of the paranasal sinuses. The mastoid air cells are clear. IMPRESSION: No acute intracranial abnormality or calvarial fracture. ACT 112: Negative or not required by law. The above report was generated using voice recognition software. It may contain grammatical, syntax or spelling errors. Electronically signed by: Castro Greenberg M.D. 06/15/2022 11:09 AM Discharge Plan Visit Data Chief Complaint: Syncope Stated Complaint: SYNCOPE ED Provider: Owen Delgado Discharge Problem: Syncope and collapse, Acute hypotension Patient Disposition: Admitted As Inpatient Forms Stand Alone Forms: [facility] Prescriptions Prescriptions: No Action (DME) Oxygen Home Liters Per Minute See Rx Instructions .MEDSUPPLY Qty: 1 0RF Rx Instructions: 2 Liters per minute continuous insulin aspart U-100 [Novolog FlexPen U-100 Insulin] 100 unit/mL (3 mL) insulin pen See Rx Instructions .ROUTE .COMPLEX Qty: 15 3RF Dose Instruction: INJECT 20 UNITS (0.2MLS) SUBCUTANEOUSLY (UNDER THE SKIN) THREE TIMES DAILY WITH MEALS Rx Instructions: INJECT 20 UNITS (0.2MLS) SUBCUTANEOUSLY (UNDER THE SKIN) THREE TIMES DAILY WITH MEALS (DME) Dexcom G6 Sensor Device See Rx Instructions .Route Qty: 3 11RF Rx Instructions: use for blood sugar checks (DME) Dexcom G6 Transmitter Device See Rx Instructions .Route Qty: 1 3RF Rx Instructions: use for blood sugars change out every 90 days diltiazem HCl 180 mg capsule,extended release 24hr 180 mg PO BID 90 Days Qty: 180 3RF furosemide 40 mg tablet 40 mg PO QAM Qty: 90 3RF Rx Instructions: takes 6 days per week; not on Sundays fenofibrate nanocrystallized 48 mg tablet 48 mg PO QDL Qty: 90 3RF metoprolol tartrate 25 mg tablet 25 mg PO BID Qty: 180 3RF warfarin 3 mg tablet 3 mg PO HS Qty: 90 3RF Protocol: Dose Management Condition: Wednesday Dose/Route: 3 mg Instruction: 1 x 3 mg tablet Condition: Wednesday Dose/Route: 3 mg Instruction: 1 x 3 mg tablet Condition: Wednesday Dose/Route: 1.5 mg Instruction: 0.5 x 3 mg tablets Condition: Wednesday Dose/Route: 3 mg Instruction: 1 x 3 mg tablet Condition: Dose/Route: 3 mg Instruction: 1 x 3 mg tablet Condition: Wednesday Dose/Route: 3 mg Instruction: 1 x 3 mg tablet Condition: Wednesday Dose/Route: 3 mg Instruction: 1 x 3 mg tablet Protocol Text: Adjustment Start Date: Wednesday06/01/22 INR Value: 2.2 INR Date: 06/01/22 Recheck Date: 06/04/22 ranolazine 1,000 mg tablet extended release 12 hr 1,000 mg PO Q12H Qty: 60 6RF rosuvastatin [Crestor] 20 mg tablet 20 mg PO QAM Qty: 90 3RF Arnuity Ellipta 50 mcg/actuation blister with device 1 inh INH QAM Qty: 90 3RF (DME) pen needle, diabetic [BD Reyna 2nd Gen Pen Needle] 32 gauge x 5/32" needle See Rx Instructions .Route Qty: 200 8RF Rx Instructions: use for insulin injection up to six times daily insulin degludec [Tresiba FlexTouch U-200] 200 unit/mL (3 mL) insulin pen 40 unit subcut BID Qty: 9 6RF pregabalin 100 mg capsule 100 mg PO TID Qty: 270 3RF tamsulosin 0.4 mg capsule 0.4 mg PO DAILY multivitamin [Daily Multi-Vitamin] Tablet 1 tab PO QAM ascorbic acid (vitamin C) 1,000 mg capsule 1 g PO DAILY Qty: 90 0RF albuterol sulfate 90 mcg/actuation HFA aerosol inhaler 1 - 2 puff inhalation Q4H PRN (Reason: shortness of breath) Qty: 18 3RF cholecalciferol (vitamin D3) 1,000 unit (25 mcg) tablet 1,000 units PO QDL cyanocobalamin (vitamin B-12) 100 mcg tablet 1,000 mcg PO Q2D docusate sodium 100 mg capsule 200 mg PO DAILY calcium carbonate [Calcium 600] 600 mg calcium (1,500 mg) tablet 600 mg PO DAILY cranberry 400 mg capsule 400 mg PO DAILY Rx Instructions: administer with a meal nitroglycerin 0.3 mg tablet, sublingual 0.3 mg sublingual Q5M PRN (Reason: chest pain) Qty: 10 0RF Rx Instructions: do not exceed 3 doses per episode omega 3-ahy-mij-fish oil [Fish Oil] 1,000 mg (120 mg-180 mg) Capsule 1 cap PO QAM lisinopril 5 mg Tablet 5 mg PO DAILY Referrals Referrals: Pro,Marco Stahl MD [Primary Care Provider] -
--- NOTE | 2022-06-15 10:40 | XRay Report ---
XR chest 1V portable HISTORY: Sepsis COMPARISON: Chest 05/28/2022. FINDINGS: No pneumothorax. No pleural effusions. The cardiac silhouette is enlarged. A mitral valve r ing is again noted. Interval resolution of the right lung airspace opacities. No evidence for pulmona ry edema. IMPRESSION: Stable cardiomegaly. Otherwise, no acute process within the chest. ACT 112: Negative or not required by law. Electronically signed by: Tuan Knox M.D. 06/15/2022 10:38 AM
[2022-06-15 10:48] LABS: Albumin Level 4.3 gm/dl (3.4-5.0); BUN Creatinine Ratio 18.8 (10-20); Bilirubin Direct 0.1 mg/dl (0-0.2); Bilirubin,Total 0.7 mg/dl (0.2-1.0); Calcium 9.4 mg/dl (8.6-10.3); Creatinine Clr Calc Pharmacy 27.8 ml/min; Est GFR (African American) 25.4 ml/min; Est GFR (Non-African American) 21.9 ml/min; Magnesium 1.9 mg/dl (1.7-2.4); Total Protein 6.8 gm/dl (6.0-8.3)
[2022-06-15 10:54] LABS: Troponin I High Sensitivity 7.7 pg/ml (0-20)
[2022-06-15 11:02] LABS: Prothrombin Time 30.3 Seconds (9.0-12.0)
--- NOTE | 2022-06-15 11:11 | CT Scan Report ---
CT head/brain wo con CLINICAL HISTORY: 72 years-old Male with syncope, fall. Acute head trauma status post fall TECHNIQUE: Multiple axial CT images of the head were obtained without contrast. A dose lowering tech nique was utilized adhering to the principles of ALARA. CT DOSE: 614.27 mGy.cm COMPARISON: 07/18/2021 FINDINGS: No acute intracranial hemorrhage, midline shift, intracranial mass, hydrocephalus, territorial ischem ia or abnormal extra-axial collection. Encephalomalacia of the left frontal lobe again noted suggesti ve of chronic MCA infarct. Involutional changes with chronic microvascular ischemic disease. Cerebrov ascular calcifications. The calvarium is intact. Minimal mucosal thickening of the paranasal sinuses. The mastoid air cells are clear. IMPRESSION: No acute intracranial abnormality or calvarial fracture. ACT 112: Negative or not required by law. The above report was generated using voice recognition software. It may contain grammatical, syntax o r spelling errors. Electronically signed by: Castro Greenberg M.D. 06/15/2022 11:09 AM
[2022-06-15] MEDS ORDERED: SODIUM CHLORIDE 0.9% 1000ML 1,000 ML IV ONE (12:08)
[2022-06-15] MEDS ORDERED: CEFEPIME 2,000 MG/20 ML VIAL IV STA (12:08)
--- NOTE | 2022-06-15 12:26 | History & Physical Report ---
Date of Service June 15, 2022 Assessment & Plan (1) Acute hypotension: Plan: -Admit to the ICU -At this time the etiology patient's persistent hypotension despite 3L NSS in the ED is unknown but the differential includes but is not limited to septic shock, cardiogenic shock, acute dehydration + continued antihypertensive therapy, stroke/neurogenic source -S/P 3L NSS + cefepime in the ED, lactate and procal WNL, minimal leukocytosis of 11, will defer continued antibiotics to the ICU for now -Patient has been bradycardic with HR in the 40-50's at rest with increase to the 60's with movement, he is on diltiazem and metoprolol which is at least partly contributing at this time -Will give 100 mg IV hydrocortisone STAT, monitor for response -Will obtain STAT random cortisol, TTE, CT of the chest/abd/pelvis wo con due to his GRACIE -Spoke with Dr. Bro who accepted the patient to the ICU -Continue to monitor on tele and pulse oximetry -Hold antihypertensives and diuretics at this time -Continue Warfarin for DVT PPX (2) Syncope and collapse: Plan: -Likely due to hypotension but cannot rule out seizure or acute stroke -No focal neuro defects on exam, CT head negative, did loss control of bladder during his syncopal episode but it does not appear that he had a postictal period -Continue holding antihypertensives and diuretics for now, follow TTE, no acute changes on ECG, too unstable at this time to obtain orthostatics -Seizure precuations for now (3) Acute kidney injury superimposed on CKD: Plan: -Cr today is 2.76, baseline appears to be near 2.0 -Unsure etiology at this time but acute hypotension is likely attributing -No signs of obstruction, has been urinating well -Hold lisinopril and lasix for now -Monitor intake and output -Monitor daily renal function and electrolytes (4) Diabetes mellitus type 2, controlled: Plan: -Monitor BSG q4h for now, goal is 110-140 -Will start with 10 units lantus BID, CF of 40 and CR of 12 -Adjust regimen as needed with IV steroids on admission (5) AF (atrial fibrillation): Plan: -Currently in afib and bradycardic -Therapeutic INR today at 3 -Hold diltiazem and metoprolol for now with bradycardia -Continue HS Warfarin based on daily INR (6) Chronic diastolic CHF (congestive heart failure): Plan: -Hold lasix for now and monitor TTE ordered on admission (7) Dyslipidemia: Plan: -Conitnue statin (8) Hypertension: Plan: -See hypotension (9) Interstitial lung disease: Plan: -Continue 3L HS -Continue home breathing treatments Plan The patient was discussed with Dr. Banda at the time of the admission History of Present Illness Chief Complaint: Syncope Primary Care Provider: Marco Velasco MD iVto Babb is a 72-year-old male with a past medical history of type II DM, A-fib on warfarin, CKD, HTN, hyperlipidemia, CAD, ILD who presented to the [facility] ED on 06/15/22 due to an unwitnessed syncopal episode at home. In the ED he was found to be afebrile, hypotensive at 72/38, bradycardic with HR in the 40-50s and stable on 3L NC while was started by EMS. Labs were significant for a leukocytosis of 11 with left shift of 9.24, lymphocyte count of 1.03, Cr of 2.76 (baseline appears to be near 2.0), BUN of 52. CT of the head WO con and chest xray were read as negative for acute findings. Prior to admission the patient was given 2L NSS, a dose of cefepime, and was ordered another 1L NSS. At the time of the exam the patient was lying flat in bed in no acute distress. He states that over the past 3 days or so he has felt more weak than his baseline. He states that he went to [employer] yesterday but felt too weak to kneel or stand during the service. This am he did not feel significantly different and went to his Daughter's house to help care for his Grandson school photographer. He states that he was in his grandson's room when he felt "off".. He has trouble describing the sensation but may have felt light headed. He then passed out and woke on the floor of his grandson's room. He was not confused when he woke but he did lose control of his bladder and urinated himself during his syncopal episode. He states that he has felt cold/had the chills recently but denies any recent fevers. He denies current head, neck, and back pain. Headache, changes in visions, hearing, taste, smell, chest pain, increased SOB compared to baseline, and pain, nausea, vomiting, dysuria, hematuria, increased urinary frequency, diarrhea, bloody BM's, LE swelling, wounds/pressure sores, and other recent falls/trauma. He tells me he feels as though his voice is a different pitch/is sounds off compared to baseline. He does not feel as though he is having trouble with word finding or getting his words out. He is currently on 3L HS and recently followed up with Pulmonology outpatient without changes to his medication regimen. He is a full code and would want his to make medical decisions for him if he could not make them himself. Per chart review, the patient was last admitted to [facility] from 05/28/22-05/30/22 for acute hypoxic respiratory failure due to community acquired pneumonia and chronic ILD. He was treated with IV antibiotics and IV steroids while admitted and discharged on Cefdinir/azithromycin and a 4 day course of 40 mg PO Prednisone. Of note, no home medication changes were made during his last admission. Please refer to Dr. Banda's attestation for any changes to the treatment plan. Allergies Allergy/AdvReac Type Severity Reaction Status Date / Time dulaglutide [From [facility]] AdvReac Intermediate Diarrhea , Verified 06/01/22 13:11 nausea Home Medications Medication Instructions Recorded Confirmed Type cholecalciferol (vitamin D3) 25 1,000 units PO QDL 10/04/18 06/15/22 History mcg (1,000 unit) tablet multivitamin (Daily Multi-Vitamin 1 tab PO QAM 03/15/20 06/15/22 History tablet) omega 1-ywb-rxl-fish oil 1,000 mg 1 cap PO QAM 06/10/21 06/15/22 History (120 mg-180 mg) capsule (Fish Oil) Oxygen Home #1 ea 08/27/21 06/09/22 Rx insulin aspart U-100 100 unit/mL See Rx Instructions .Route 08/27/21 06/15/22 Rx (3 mL) subcutaneous pen (Novolog .COMPLEX #15 mL FlexPen U-100 Insulin aspart) blood-glucose sensor (Dexcom G6 #3 ea 09/04/21 06/09/22 Rx Sensor device) blood-glucose transmitter (Dexcom #1 ea 09/04/21 06/09/22 Rx G6 Transmitter device) diltiazem HCl 180 mg 180 mg PO BID 90 days #180 caps 09/16/21 06/15/22 Rx capsule,extended release 24 hr furosemide 40 mg tablet 40 mg PO QAM #90 tabs 09/16/21 06/15/22 Rx fenofibrate nanocrystallized 48 mg 48 mg PO QDL #90 tabs 11/03/21 06/15/22 Rx tablet metoprolol tartrate 25 mg tablet 25 mg PO BID #180 tabs 11/03/21 06/15/22 Rx warfarin 3 mg tablet 3 mg PO HS #90 tabs 12/02/21 06/15/22 Rx ranolazine 1,000 mg 1,000 mg PO Q12H #60 tabs 02/02/22 06/15/22 Rx tablet,extended release,12 hr rosuvastatin 20 mg tablet (Crestor) 20 mg PO QAM #90 tabs 03/11/22 06/15/22 Rx fluticasone furoate 50 1 inh inhalation QAM #90 ea 03/20/22 06/15/22 Rx mcg/actuation blister powder for inhalation (Arnuity Ellipta) ascorbic acid (vitamin C) 1,000 mg 1 g PO DAILY #90 caps 03/24/22 06/15/22 Rx capsule pen needle, diabetic 32 gauge x #200 ea 04/14/22 06/09/22 Rx 5/32" (BD Reyna 2nd Gen Pen Needle) insulin degludec 200 unit/mL (3 40 unit (0.2 mL) subcut BID #9 mL 05/15/22 06/15/22 Rx mL) subcutaneous pen (Tresiba FlexTouch U-200 insulin) lisinopril 5 mg tablet 5 mg PO DAILY 05/29/22 06/15/22 History albuterol sulfate 90 mcg/actuation 1 - 2 puff inhalation Q4H PRN 06/04/22 06/15/22 Rx aerosol inhaler shortness of breath #18 grams pregabalin 100 mg capsule 100 mg PO TID #270 caps 06/08/22 06/15/22 Rx calcium carbonate 600 mg calcium 600 mg PO DAILY 06/09/22 06/15/22 History (1,500 mg) tablet (Calcium) cranberry 400 mg capsule 400 mg PO DAILY 06/09/22 06/15/22 History cyanocobalamin (vitamin B-12) 100 1,000 mcg PO Q2D 06/09/22 06/15/22 History mcg tablet docusate sodium 100 mg capsule 200 mg PO DAILY 06/09/22 06/15/22 History nitroglycerin 0.3 mg sublingual 0.3 mg sublingual Q5M PRN chest 06/09/22 06/15/22 Rx tablet pain #10 tabs tamsulosin 0.4 mg capsule 0.4 mg PO DAILY 06/12/22 06/15/22 History Past Med/Surg History Medical History Abdominal aortic aneurysm dissection "infrarenal aortic dissection extending into right common iliac and right proximal mid external iliac arteries": Annual surveillance (stable), monitored by [facility] vascular surgery Acute UTI Atrial fibrillation 2020 follow with [facility] Bilateral renal cysts BPH with obstruction/lower urinary tract symptoms CKD stage 3 due to type 2 diabetes mellitus follows with [facility] Baseline creatinine 1.7-2.0 per nephrology notes Complex sleep apnea syndrome ASV machine with 2L supplemental oxygen nightly-compliant, follows with [facility] Congestive heart failure EF 50-55% 09/2020 echo Coronary atherosclerosis of [place] coronary vessel Severe 80-90% apical LAD disease. Moderate non-obstructive proximal-mid LAD (FFR 0.83). Mild-moderate multivessel disease- 30-40% proximal OM1, mid circumflex, mid RCA 10/12/18 cath: Distal LAD disease is low risk involving small vessel at the apex. Recommend trial of additional antianginal therapy, start Imdur. If persistent symptoms could consider POBA +/- stent to LAD. Diabetic nephropathy associated with type 2 diabetes mellitus Diabetic polyneuropathy B/L LE Dyslipidemia Encounter for pre-operative examination Gastroparesis History of anemia History of blood transfusion during mitral valve repair per pt Hypertension controlled, stable per pt Interstitial lung disease monitoring per [facility] Lumbar back pain Pulmonary hypertension Moderate 09/2020 echo, "suspected secondary to elevated end-diastolic pressure, obesity, restrictive lung disease, hypoxemia and sleep disordered breathing: Would not recommend consideration for any pulmonary vasodilators at this point" follows with [facility]; Right heart cath 07/11/21: Normal left and right-sided filling pressures. Normal pulmonary artery pressure. Restrictive lung disease Stroke 2019, embolic, 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 CVA post cardiac catheterization, mild residual aphasia Surgical History History of cardiac cath no stents History of colonoscopy History of cystoscopy Left Ureteronephroscopy 08/24/2019: Grade 3 view, MAC#3.0, ETT#8.0. No issues per anesthesia postop progress note. History of mitral valve [facility] 2007[facility] History of shoulder surgery RT/LEFT History of surgical removal of pilonidal cyst History of tooth extraction History of total left knee replacement Family History Mother Colon cancer Diabetes Grandmother Multiple sclerosis Father Diabetes Coronary heart disease Myocardial infarction Grandfather Stroke Sister Diabetes Hypertension Brother Diabetes Hypertension Son Depression Hypertension Other No family history of adverse response to anesthesia Denies family history of Ovarian cancer Prostate cancer Breast cancer Social History Smoking Status: Never smoker Second Hand Exposure: No; Do You Dip or Chew Tobacco: No; Hx Alcohol Use: No Hx Substance Use: No Preferred Language: [place] Communication Ability: Effective Visual Impairment: No Limitations Hearing Ability: Normal Site Acquisition Specialist Required: No Beliefs That Will Affect Care: None marital status: Current Living Situation: Spouse Current Living Situation Comment: live with and grown children current occupational status: retired current occupation: Former [employer] How many Children do You have: 2 Feels Safe at Home: Yes Childhood Exposure to Second-Hand Smoke: No Dental Care, Regularly: No Physical Activity Frequency: Does not Exercise Seatbelt Use: always Sunscreen Use: No Assistive Devices: Cane, Glasses, Oxygen - Continuous and Walker Physical Exam Physical Exam: Physical Exam: General: In no acute distress, stated age, chronically ill-appearing HEENT: Normocephalic, atraumatic, no scleral icterus, pupils around round, symmetrical, and reactive to light, dry mucus membranes, trachea midline, no thyromegaly Chest/Pulm: No respiratory distress, symmetrical chest expansion, expiratory wheezing throughout Cardiac: bradycardic rate, irregular rhythm, no murmurs noted Abdomen: Negative for ascites and bruising, normoactive bowel sounds, soft, non-tender to palpation throughout Musculoskeletal: Symmetrical and without signs of acute trauma, upper and lower extremities with full ROM, no atrophy, spasticity, or flaccidity Extremities: Radial, dorsalis pedis, and posterior tibial pulses are intact and symmetrical, no edema noted in the BL LE's Skin: Warm, dry, no rashes , lesions, or scars noted Neuro: Alert and oriented to person, place, month, year, and president, no focal defects, CN II-XII tested and intact, finger to nose test negative, no tremors noted Psych: No acute distress, calm and cooperative during the exam Results & Data Results & Data Vital Signs (Past 12 Hours) Vital Signs Temp Pulse Pulse Resp BP BP Pulse Ox 06/15/22 12:05 100/36 L 06/15/22 11:51 45 L 16 80/41 L 99 06/15/22 11:21 46 L 90/45 L 06/15/22 11:08 57 L 16 79/38 L 99 06/15/22 10:49 51 L 16 87/48 L 99 06/15/22 10:35 51 L 16 82/40 L 95 06/15/22 10:20 97 06/15/22 10:20 97 06/15/22 10:20 81/45 L 06/15/22 10:02 58 L 88/40 L 06/15/22 09:58 60 06/15/22 09:55 36.4 C L 64 18 72/38 L 96 O2 Del Method O2 Flow Rate 06/15/22 12:05 06/15/22 11:51 Nasal Cannula 06/15/22 11:21 06/15/22 11:08 Nasal Cannula 3 06/15/22 10:49 Nasal Cannula 3 06/15/22 10:35 Nasal Cannula 3 06/15/22 10:20 Nasal Cannula 3 06/15/22 10:20 Nasal Cannula 3 06/15/22 10:20 06/15/22 10:02 06/15/22 09:58 06/15/22 09:55 Nasal Cannula 3 Laboratory Results Abnormal lab results 06/15/22 06/15/22 06/15/22 Range/Units 09:51 10:19 10:19 WBC 11.23 H (4.8-10.8) K/ul RBC 4.26 L (4.70-6.10) M/uL Hgb 13.9 L (14.0-18.0) g/dl Hct 40.7 L (42.0-52.0) % RDW Std Deviation 47.7 H (36.4-46.3) fL Neut # (Auto) 9.24 H (1.40-6.50) K/uL Lymph # (Auto) 1.03 L (1.2-3.4) K/uL [place] # (Auto) 0.76 H (0.11-0.59) K/uL PT 30.3 H (9.0-12.0) Seconds INR 3.0 H (0.9-1.1) BUN (6-23) mg/dl Creatinine (0.6-1.4) mg/dl Glucose (70-99(Fasting)) mg/dl POC Glucose 206 H (70-99) mg/dl 06/15/22 Range/Units 10:19 WBC (4.8-10.8) K/ul RBC (4.70-6.10) M/uL Hgb (14.0-18.0) g/dl Hct (42.0-52.0) % RDW Std Deviation (36.4-46.3) fL Neut # (Auto) (1.40-6.50) K/uL Lymph # (Auto) (1.2-3.4) K/uL [place] # (Auto) (0.11-0.59) K/uL PT (9.0-12.0) Seconds INR (0.9-1.1) BUN 52 H (6-23) mg/dl Creatinine 2.76 H (0.6-1.4) mg/dl Glucose 202 H (70-99(Fasting)) mg/dl POC Glucose (70-99) mg/dl Diagnostic Findings Chest X-Ray 06/15/22 10:05 XR chest 1V portable HISTORY: Sepsis COMPARISON: Chest 05/28/2022. FINDINGS: No pneumothorax. No pleural effusions. The cardiac silhouette is enlarged. A mitral valve ring is again noted. Interval resolution of the right lung airspace opacities. No evidence for pulmonary edema. IMPRESSION: Stable cardiomegaly. Otherwise, no acute process within the chest. ACT 112: Negative or not required by law. Electronically signed by: Tuan Knox M.D. 06/15/2022 10:[address] 06/15/22 10:39 CT head/brain wo con CLINICAL HISTORY: 72 years-old Male with syncope, fall. Acute head trauma status post fall TECHNIQUE: Multiple axial CT images of the head were obtained without contrast. A dose lowering technique was utilized adhering to the principles of ALARA. CT DOSE: 614.27 mGy.cm COMPARISON: 07/18/2021 FINDINGS: No acute intracranial hemorrhage, midline shift, intracranial mass, hydrocephalus, territorial ischemia or abnormal extra-axial collection. Encephalomalacia of the left frontal lobe again noted suggestive of chronic MCA infarct. Involutional changes with chronic microvascular ischemic disease. Cerebrovascular calcifications. The calvarium is intact. Minimal mucosal thickening of the paranasal sinuses. The mastoid air cells are clear. IMPRESSION: No acute intracranial abnormality or calvarial fracture. ACT 112: Negative or not required by law. The above report was generated using voice recognition software. It may contain grammatical, syntax or spelling errors. Electronically signed by: Castro Greenberg M.D. 06/15/2022 11:09 AM ECG Additional Comments: Atrial fibrillation Rightward axis Low voltage QRS Abnormal ECG When compared with ECG of 28-MAY-2022 12:01, Vent. rate has decreased BY 41 BPM (RBBB and left posterior fascicular block) is no longer Present Code Status & VTE Plan Code Status Full code VTE Prophylaxis Plan VTE Prophylaxis will be ordered: Yes Supervising Physician Co-Signing Physician Notes Patient seen and examined, chart reviewed, case discussed with Delvin Short PA-C and I agree with the assessment and plan as above except as otherwise noted Labs and images reviewed 72-year-old male who presents with lightheadedness/dizziness/syncope and hypotension. Mild leukocytosis, patient denies infectious symptoms. He denies cough, shortness of breath, difficulty breathing, chest pain. Has had some diffuse abdominal upset, but denies abdominal pain, diarrhea, nausea/vomiting. He notes he was treated for pneumonia 2 weeks ago and was on an antibiotic that he does not remember and prednisone, thinks that he recovered after this. Does not usually use steroids. Antihypertensives reviewed, he took these this morning, reports he is aware of his medications and denies taking extra medications or possibly taking additional/double dose by accident. No history of adrenal insufficiency. He has not had any chest pain or chest pressure, heart rate is low he reports he has not had issues with bradycardia previously. Diltiazem, metoprolol are held both for hypotension and bradycardia. Patient's blood pressure has been checked in both arms, remains with a MAP less than 55 despite heart rate in the 60s at time of check. Patient is without an elevated lactate and appears clinically stable and mentating normally. BP was rechecked in both arms with 2 different cuffs, remains low. He does have chronotropic response, although on monitor patient dropped as low as 45's while at rest. EKG does not show any territorial signs of ischemia, and initial troponin is negative. He is anticoagulated on warfarin for a history of A-fib. DDx includes primary cardiogenic with echo pending for EF evaluation, symptomatic bradycardia although less likely as even with heart rate in the 60s and concurrent blood pressure check remains hypotensive without significant improvement, infectious without clear source and mild leukocytosis; pr ocalcitonin is normal and CT of chest/abdomen are pending but no obvious symptoms of infectious. Given 3 L of fluid and minimal improvement was treated empirically with a dose of hydrocortisone given recent steroid use; random cortisol is pending. Most likely diagnosis are primary cardiac disease? Restrictive or sarcoid in the setting of past ILD, silent AK although suspect this is less likely in the setting of negative troponins and no territorial evidence of ischemia, and accidental antihypertensive overdose. Patient did initially report that he did not have any problems with his medicinesdouble doses/or concerns for double dosing, however with collateral from his is clarified that his pill bottle was knocked over and pills had to be restarted a few days ago which may have led to inadvertent dosing. agree with recommendation/management and continued assessment as above PG Care Time/CCT Total # of Minutes Spent Total Time Spent with Patient: Total time spent is greater than 50% in coordination of care (as documented) at patient's floor/unit and/or counseling patient: Coding [place] [address] INT INP/OBS CARE 3/75MIN Patient Type Established Medical Decision Making High Complexity Diagnoses Acute hypotension I95.9 Syncope and collapse R55 Acute kidney injury superimposed on CKD N17.9; N18.9 Diabetes mellitus type 2, controlled E11.9 AF (atrial fibrillation) I48.91 Chronic diastolic CHF (congestive heart failure) I50.32 Dyslipidemia E78.5 Hypertension I10 Hypertension type: essential hypertension Interstitial lung disease J84.9 (8) Hypertension Hypertension type: essential hypertension Qualified Code(s): I10 - Essential (primary) hypertension
[2022-06-15] MEDS ORDERED: HYDROCORTISONE SOD SUCCINATE 100 MG/2 ML VIAL IV STA (13:02)
[2022-06-15] MEDS ORDERED: DEXTROSE 50% 50 ML SYRINGE IV PRN (13:36)
[2022-06-15] MEDS ORDERED: GLUCOSE 10 TAB/TUBE PO PRN (13:36)
[2022-06-15] MEDS ORDERED: CARBOHYDRATES FOR HYPOGLYCEMIA PO PRN (13:36)
[2022-06-15] MEDS ORDERED: GLUCAGON FOR INJ 1 MG VIAL SQ PRN (13:36)
[2022-06-15] MEDS ORDERED: GLUCOSE 40% GEL 15 GM TUBE PO PRN (13:36)
--- NOTE | 2022-06-15 13:39 | Critical Care Consultation ---
Date of Consultation June 15, 2022 Assessment & Plan (1) Syncope and collapse: (2) Acute hypotension: (3) Acute kidney injury superimposed on CKD: (4) Type 2 diabetes mellitus with complications: (5) Chronic diastolic CHF (congestive heart failure): (6) AF (atrial fibrillation): (7) Stage 3b chronic kidney disease: (8) Diabetic peripheral neuropathy associated with type 2 diabetes mellitus: Plan Reason Critically Ill: 72 year old male with a past medical history of DM II, A fib on warfarin, CKD stage 3b, HTN, HLD, CAD, chronic ILD presented with unwitnessed syncopal episode. Found to be hypotensive/bradycardic. No significant improvement with IVF. Neuro - [facility] ICU: NEGATIVE Syncope - Likely secondary to hypotension/bradycardia. Etiology unclear. Differential includes septic shock- mild leukocytosis, with negative procal, afebrile. Cardiogenic shock- known history of pulmonary HTN and right sided heart failure. Adrenal insufficiency less likely given cortisol= 17. VTE less likely as he is anticoagulated for a fib. Unintentional medication overdose also possible. - S/p 100mg IV hydrocortisone in ED - TTE pending - EKG without signs of ischemia, trop 7.7 - CT abdomen/pelvis and chest pending - Start History of CVA 2018 - thought to be embolic, mild residual aphasia Diabetic Neuropathy - Continue pregabalin 100mg TID Cardiac - Hypotension/Bradycardia - Differential as per above - Mild improvement with 3L fluids, hydrocortisone - Holding home hypertensives; lisinopril - Start Levophed gtt Atrial Fibrillation - On Warfarin 3mg daily, INR= 3.0 - Continue to trend INR, goal 2-3 - Continue warfarin - Hold diltiazem, metoprolol in the setting of bradycardia Chronic Diastolic Heart Failure in the setting of Pulmonary HTN - Most recent echo 2020; Normal LV size and grossly normal LV systolic function. EF 50-55%. Borderline dilated RV with reduced function. Mild mitral stenosis post annuloplasty ring. Trace MR. Mild TR. Moderate pulmonary HTN. - Echo pending - Hold furosemide in the setting of GRACIE and hypotension Abdominal Aortic Aneurysm - Noted incidentally in 2017. 2.4cm 2020. Follows with Dr. Keller. US in 2021 showed infrarenal aortic dissection extending into right common iliac and right proximal mid external iliac arteries. No hemodynamic significant stenosis. HLD - Continue rosuvastatin Respiratory - Chronic ILD - Chronically on 3L at home - Currently on baseline oxygen requirement - Continue albuterol prn, fluticasone qAM Pulmonary HTN - Right heart cath 06/2021 showed normal pulmonary arterial pressures GI - No concerns at this time RENAL/LYTES - GRACIE in the setting of CKD Stage 3b - Creatine= 2.76, baseline 2 - S/p 3L IVF in ED, additional 1L currently being given - Likely secondary to hypoperfusion Replace lytes as needed. - BPH - Hold tamsulosin in the setting of hypotension ENDO - DM2 - Well controlled, hemoglobin a1c= 5.6 04/2022 - Lantus 10mg BID, SSi with CF=40 and CR= 12 - Home regimen NovoLog 20units TID and Tresiba 40 units BID Follow ICU hyperglycemic protocols HEME - Stable H&H. ID - Leucocytosis - Mild leukocytosis to 11.23 with neutrophil predominance - Blood/urine cultures pending LINES/IV ACCESS - PIVs intact. DVT PROPHYLAXIS - Warfarin Thank you for allowing us to be part of this patient's care. Please refer to Dr. Bro's documentation for any further recommendations. Supervising Physician Co-Signing Physician Notes Dr. Clark was resident physician during care of patient. I separately evaluated patient for neville portions of the history and the exam. I was present during the critical portion of medical decision making, and I discussed the case with the resident. I generally agree with the findings and plan. Patient sent to ICU for ongoing hypotension and bradycardia. I do not believe the patient is septic, his procalcitonin is very unremarkable especially in the setting of acute kidney injury on chronic kidney disease. He will be given broad-spectrum antibiotics in the emergency department he was recently treated for a pneumonia. Troponins are also negative, longstanding history of right- sided heart failure/pulmonary hypertension. He also has a history of interstitial lung disease of an unspecified cause. Again in the realm of potentials is adrenal insufficiency (relative) however his cortisol is greater than 15. He has been given hydrocortisone in the emergency department this will obscure any cortisol stim test at this time. Additionally patient's electrolytes are largely unremarkable. Discussed the echocardiogram, normal- appearing EF however significant dilation of right ventricle and tricuspid regurgitation. Patient is anticoagulated for history of atrial fibrillation, I think chronic venous thromboembolism is rather unlikely. Accordingly I do not feel it prudent to obtain a contrasted CT given the acute kidney injury. Echo also shows IVC variability we will give an additional liter of fluid, start vasoactive medication. Additional history obtained from the also reports that their grandson knocked the patient's pill container off approximately 3 days ago and the patient had to sort all his pills which he did by color and then reports that he was able to place them in the appropriate days however this could be an area for accidental medication overdose. I have personally spent 70 minutes of critical care time in the direct management of this patient. This is a life/limb threatening event. This includes time spent evaluating patient, direct bedside care, chart review, placing orders, interpretation of diagnostic studies, discussion with consultants, patient, and/or family members regarding treatment decisions, as well as other required patient management activities. This time is exclusive of all separately billable procedures, and teaching time and separate from and in addition to any other critical care service time. History of Present Illness History of Present Illness 72 year old male with a past medical history of DM II, A fib on warfarin, CKD stage 3b, HTN, HLD, CAD, chronic ILD presented with unwitnessed syncopal episode. States that he has been in his normal state of health over the past week, does note that he was admitted from admitted from 05/28/22-05/30/22 for acute hypoxic respiratory failure secondary to CAP to the setting of chronic ILD. Treated with IV antibiotics and steroids and transitioned to cefdinir and azithromycin, with a 4 day coarse of 40mg prednisone. Notes his blood glucose this morning was 66, so he did not take any insulin. Prior to syncopal episode he said he felt shaky. Unsure how long he was unconscious for. states that afterwards he was disorientated and staring into space. Denies prior episodes like this. Some question about medication accuracy, pills were spilled out of pill organizer, believes he replaced in right spots. Denies bowel/bladder incontinence, tongue bitting during episode. Denies chest pain, dyspnea, cough, nausea, vomiting, diarrhea, headache. Upon presentation found to be hypotensive (70s/40s) and bradycardiac (40-50s). Given 3L fluids, blood pressures 80s/40s and HR still 40s-50s. EKG with atrial fibrillation. Head CT without acute intracranial process. CXR without acute process. Mild leukocytosis= 11. Creatine= 2.76 (BL=2). Given dose of cefepime and 100mg Iv hydrocortisone. Allergies Allergy/AdvReac Type Severity Reaction Status Date / Time dulaglutide [From [facility]] AdvReac Intermediate Diarrhea , Verified 06/01/22 13:11 nausea Home Medications Medication Instructions Recorded Confirmed Type cholecalciferol (vitamin D3) 25 1,000 units PO QDL 10/04/18 06/15/22 History mcg (1,000 unit) tablet multivitamin (Daily Multi-Vitamin 1 tab PO QAM 03/15/20 06/15/22 History tablet) omega 5-lld-tym-fish oil 1,000 mg 1 cap PO QAM 06/10/21 06/15/22 History (120 mg-180 mg) capsule (Fish Oil) Oxygen Home #1 ea 08/27/21 06/09/22 Rx insulin aspart U-100 100 unit/mL See Rx Instructions .Route 08/27/21 06/15/22 Rx (3 mL) subcutaneous pen (Novolog .COMPLEX #15 mL FlexPen U-100 Insulin aspart) blood-glucose sensor (Dexcom G6 #3 ea 09/04/21 06/09/22 Rx Sensor device) blood-glucose transmitter (Dexcom #1 ea 09/04/21 06/09/22 Rx G6 Transmitter device) diltiazem HCl 180 mg 180 mg PO BID 90 days #180 caps 09/16/21 06/15/22 Rx capsule,extended release 24 hr furosemide 40 mg tablet 40 mg PO QAM #90 tabs 09/16/21 06/15/22 Rx fenofibrate nanocrystallized 48 mg 48 mg PO QDL #90 tabs 11/03/21 06/15/22 Rx tablet metoprolol tartrate 25 mg tablet 25 mg PO BID #180 tabs 11/03/21 06/15/22 Rx warfarin 3 mg tablet 3 mg PO HS #90 tabs 12/02/21 06/15/22 Rx ranolazine 1,000 mg 1,000 mg PO Q12H #60 tabs 02/02/22 06/15/22 Rx tablet,extended release,12 hr rosuvastatin 20 mg tablet (Crestor) 20 mg PO QAM #90 tabs 03/11/22 06/15/22 Rx fluticasone furoate 50 1 inh inhalation QAM #90 ea 03/20/22 06/15/22 Rx mcg/actuation blister powder for inhalation (Arnuity Ellipta) ascorbic acid (vitamin C) 1,000 mg 1 g PO DAILY #90 caps 03/24/22 06/15/22 Rx capsule pen needle, diabetic 32 gauge x #200 ea 04/14/22 06/09/22 Rx 5/32" (BD Reyna 2nd Gen Pen Needle) insulin degludec 200 unit/mL (3 40 unit (0.2 mL) subcut BID #9 mL 05/15/22 06/15/22 Rx mL) subcutaneous pen (Tresiba FlexTouch U-200 insulin) lisinopril 5 mg tablet 5 mg PO DAILY 05/29/22 06/15/22 History albuterol sulfate 90 mcg/actuation 1 - 2 puff inhalation Q4H PRN 06/04/22 06/15/22 Rx aerosol inhaler shortness of breath #18 grams pregabalin 100 mg capsule 100 mg PO TID #270 caps 06/08/22 06/15/22 Rx calcium carbonate 600 mg calcium 600 mg PO DAILY 06/09/22 06/15/22 History (1,500 mg) tablet (Calcium) cranberry 400 mg capsule 400 mg PO DAILY 06/09/22 06/15/22 History cyanocobalamin (vitamin B-12) 100 1,000 mcg PO Q2D 06/09/22 06/15/22 History mcg tablet docusate sodium 100 mg capsule 200 mg PO DAILY 06/09/22 06/15/22 History nitroglycerin 0.3 mg sublingual 0.3 mg sublingual Q5M PRN chest 06/09/22 06/15/22 Rx tablet pain #10 tabs tamsulosin 0.4 mg capsule 0.4 mg PO DAILY 06/12/22 06/15/22 History Patient History Medical History Abdominal aortic aneurysm dissection "infrarenal aortic dissection extending into right common iliac and right proximal mid external iliac arteries": Annual surveillance (stable), monitored by [facility] vascular surgery Acute UTI Atrial fibrillation 2020 follow with [facility] Bilateral renal cysts BPH with obstruction/lower urinary tract symptoms CKD stage 3 due to type 2 diabetes mellitus follows with [facility] Baseline creatinine 1.7-2.0 per nephrology notes Complex sleep apnea syndrome ASV machine with 2L supplemental oxygen nightly-compliant, follows with [facility] Congestive heart failure EF 50-55% 09/2020 echo Coronary atherosclerosis of [place] coronary vessel Severe 80-90% apical LAD disease. Moderate non-obstructive proximal-mid LAD (FFR 0.83). Mild-moderate multivessel disease- 30-40% proximal OM1, mid circumflex, mid RCA 10/12/18 cath: Distal LAD disease is low risk involving small vessel at the apex. Recommend trial of additional antianginal therapy, start Imdur. If persistent symptoms could consider POBA +/- stent to LAD. Diabetic nephropathy associated with type 2 diabetes mellitus Diabetic polyneuropathy B/L LE Dyslipidemia Encounter for pre-operative examination Gastroparesis History of anemia History of blood transfusion during mitral valve repair per pt Hypertension controlled, stable per pt Interstitial lung disease monitoring per [facility] Lumbar back pain Pulmonary hypertension Moderate 09/2020 echo, "suspected secondary to elevated end-diastolic pressure, obesity, restrictive lung disease, hypoxemia and sleep disordered breathing: Would not recommend consideration for any pulmonary vasodilators at this point" follows with [facility]; Right heart cath 07/11/21: Normal left and right-sided filling pressures. Normal pulmonary artery pressure. Restrictive lung disease Stroke 2019, embolic, 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 CVA post cardiac catheterization, mild residual aphasia Surgical History History of cardiac cath no stents History of colonoscopy History of cystoscopy Left Ureteronephroscopy 08/24/2019: Grade 3 view, MAC#3.0, ETT#8.0. No issues per anesthesia postop progress note. History of mitral valve replacement 2007, [facility] History of shoulder surgery RT/LEFT History of surgical removal of pilonidal cyst History of tooth extraction History of total left knee replacement Family History Mother Colon cancer Diabetes Grandmother Multiple sclerosis Father Diabetes Coronary heart disease Myocardial infarction Grandfather Stroke Sister Diabetes Hypertension Brother Diabetes Hypertension Son Depression Hypertension Other No family history of adverse response to anesthesia Denies family history of Ovarian cancer Prostate cancer Breast cancer Social History Smoking Status: Never smoker Second Hand Exposure: No; Do You Dip or Chew Tobacco: No; Hx Alcohol Use: No Hx Substance Use: No Preferred Language: British Communication Ability: Effective Visual Impairment: No Limitations Hearing Ability: Normal 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 Beliefs That Will Affect Care: None marital status: Current Living Situation: Spouse Current Living Situation Comment: live with and grown children current occupational status: retired current occupation: Former [employer] How many Children do You have: 2 Feels Safe at Home: Yes Childhood Exposure to Second-Hand Smoke: No Dental Care, Regularly: No Physical Activity Frequency: Does not Exercise Seatbelt Use: always Sunscreen Use: No Assistive Devices: Cane, Glasses, Oxygen - Continuous and Walker Review of Systems Review of Systems: As per above Physical Exam Physical Exam: Constitutional: well-appearing, no acute distress HEENT: NCAT, no conjunctival injection CV: bradycardiac with an irregularly irregular rhythm, no murmur appreciated, extremities well-perfused, no LE edema Resp: CTABL, mild exp wheezes, no rales/rhonchi appreciated, no increased work of breathing GI: soft, nondistended, nontender, BS normoactive MSK: no gross deformities appreciated Skin: warm, dry, no rash appreciated Neuro: alert, oriented, no focal neurologic deficit appreciated. CN II-XII intact. Results & Data Results & Data Vital Signs (Past 12 Hours) Vital Signs Temp Pulse Pulse Resp BP BP Pulse Ox 06/15/22 13:26 53 L 16 88/41 L 97 06/15/22 12:56 52 L 16 91/42 L 97 06/15/22 12:20 54 L 16 85/43 L 99 06/15/22 12:05 100/36 L 06/15/22 11:51 45 L 16 80/41 L 99 06/15/22 11:21 46 L 90/45 L 06/15/22 11:08 57 L 16 79/38 L 99 06/15/22 10:49 51 L 16 87/48 L 99 06/15/22 10:35 51 L 16 82/40 L 95 06/15/22 10:20 97 06/15/22 10:20 97 06/15/22 10:20 81/45 L 06/15/22 10:02 58 L 88/40 L 06/15/22 09:58 60 06/15/22 09:55 36.4 C L 64 18 72/38 L 96 O2 Del Method O2 Flow Rate 06/15/22 13:26 Nasal Cannula 3 06/15/22 12:56 Nasal Cannula 06/15/22 12:20 Nasal Cannula 3 06/15/22 12:05 06/15/22 11:51 Nasal Cannula 06/15/22 11:21 06/15/22 11:08 Nasal Cannula 3 06/15/22 10:49 Nasal Cannula 3 06/15/22 10:35 Nasal Cannula 3 06/15/22 10:20 Nasal Cannula 3 06/15/22 10:20 Nasal Cannula 3 06/15/22 10:20 06/15/22 10:02 06/15/22 09:58 06/15/22 09:55 Nasal Cannula 3 Resident Activity Tracking Resident Involvement: Resident Care Provided Care Provided: Adult Hospital Medicine
[2022-06-15] MEDS ORDERED: PLASMA-LYTE A 1,000 ML IV ONE (14:56)
--- NOTE | 2022-06-15 15:03 | Billing Data ---
Date of Service June 15, 2022 Coding Level of Care Code 18006 CRITICAL CARE
[2022-06-15] MEDS: INSULIN ASPART PER UNIT CHARGE SC SCH ×3 (15:53→20:14)
--- NOTE | 2022-06-15 16:22 | CT Scan Report ---
CT chest diagnostic wo con CLINICAL HISTORY: 72 years-old Male with persistent hypotension. TECHNIQUE: Multiaxial CT images of the chest were performed without contrast. A dose lowering techni que was utilized adhering to the principles of ALARA. COMPARISON: CT abdomen and pelvis of same day, chest radiograph of same day, chest CT 05/03/2021 FINDINGS: Heterogeneity of the thyroid without dominant nodule. No lymphadenopathy identified. The st udy is degraded by respiratory motion artifact. Cardiomegaly without pericardial effusion. Prosthetic mitral valve. Mild dilation of the main pulmonary artery. Extensive coronary artery calcifications. No thoracic aortic aneurysm. Trace pleural effusions. No pneumothorax. Subpleural reticulation with groundglass densities have pro gressed from prior. Mild intralobular and bronchial wall thickening with 5 basilar prominent mucous p lugging. No suspicious pulmonary nodules or masses identified. No process of the imaged upper abdomen. Mild distention of the gallbladder. Calcifications of the spl een. Unremarkable soft tissues. Upper thoracic levoscoliosis. Degenerative changes of the spine and s houlders. IMPRESSION: 1. Cardiomegaly with suggestion of pulmonary hypertension. 2. Chronic interstitial lung disease with progressive subpleural reticulation and groundglass densiti es. Findings likely represent NSIP. 3. Mild interlobular septal thickening with trace pleural effusions. A component of mild pulmonary ed bolivar may also be present. 4. No airspace consolidation typical for pneumonia. ACT 112: Negative or not required by law. Electronically signed by: Castro Greenberg M.D. 06/15/2022 4:20 PM
--- NOTE | 2022-06-15 16:22 | CT Scan Report ---
CT SCAN OF THE ABDOMEN AND PELVIS WITHOUT IV CONTRAST CLINICAL HISTORY: Syncope. Hypotension. COMPARISON STUDY: Abdominal CT dated 05/31/2020. TECHNIQUE: CT scan of the abdomen and pelvis is performed from the lung bases to the proximal femora. Images are reviewed in the axial, sagittal, and coronal planes. IV contrast was not administered for this examination. Note that the examination was performed in suboptimal fashion without IV contrast. A dose lowering technique was utilized adhering to the principles of ALARA. CT DOSE: 2496.66 mGy.cm FINDINGS: Lung bases: The heart is enlarged and without pericardial effusion. The coronary arteries are densely calcified. There is evidence of previous mitral valve surgery. Fibrotic changes seen at the lung bas es. There is trace pleural fluid on the right. No airspace consolidation is seen to go for pneumonia. Liver: The unenhanced liver is normal in size, contour, and attenuation. There is no intrahepatic mitra iary ductal dilatation. Gallbladder: Unremarkable. Spleen: Normal in size and attenuation. There are calcified splenic granulomas. A 15 mm peripherally calcified splenic hypodensity is unchanged and statistically double significance. Pancreas: A 15 mm simple cystic lesion in the pancreatic neck on image #136 is typical for a small si debranch IPMN. The unenhanced pancreas is moderately atrophic and otherwise grossly unremarkable. Adrenal glands: Unremarkable. Kidneys: The unenhanced kidneys are atrophic and without hydronephrosis. There are at least 4 nonobst ructing left renal calculi which measure up to 7 mm. A punctate nonobstructing calculus is seen on th e right. No ureteral stone is identified. Simple and complex bilateral renal cysts are unchanged and measure up to 5.5 cm. Abdominal vasculature: There is advanced atherosclerotic calcification of the abdominal aorta which i s normal in caliber. There is evidence of aortoiliac bypass. Bowel: There is mild to moderate colonic diverticulosis without CT evidence of acute diverticulitis. No bowel obstruction is seen. The appendix is well-visualized and normal. Peritoneum: There is no intraperitoneal free air or abdominal ascites. There is a small fat-containin g umbilical hernia. Lymphadenopathy: None. Pelvic viscera: The prostate gland is enlarged and heterogeneous noting median lobe hypertrophy. The bladder is distended, and the wall is mildly thickened/trabeculated indicating chronic outlet obstruc tion. Skeletal structures: The skeletal structures are osteopenic. The lumbosacral spine, bony pelvis, and proximal femora appear intact. There is moderate lumbosacral spondylosis. No lytic or blastic lesions are seen. IMPRESSION: 1. No acute infectious or inflammatory findings are identified in the abdomen or pelvis. 2. There is no evidence of solid organ injury in the abdomen or pelvis on this unenhanced examination . 3. Cardiomegaly. 4. Bilateral nephrolithiasis. 5. Colonic diverticulosis without CT evidence of acute diverticulitis. 6. Additional findings as above. ACT 112: Negative or not required by law. Electronically signed by: Bharathi Whyte M.D. 06/15/2022 4:20 PM
--- NOTE | 2022-06-15 16:23 | XCELERA ---
[id number]
[2022-06-15] MEDS ORDERED: STAT IV Infusion **Titration per Protocol STA (16:27)
[2022-06-15] MEDS ORDERED: ALBUTEROL HFA 8 GM INHALER INH PRN (16:27)
[2022-06-15] MEDS: ICU Protocol for HYPERglycemia SCH ×2 (16:53→20:15)
[2022-06-15] MEDS: LANTUS PER UNIT CHARGE SQ SCH (20:14)
[2022-06-15] MEDS ORDERED: WARFARIN SOD 3 MG TAB PO SCH (21:00)
[2022-06-16 00:26] LABS: Appearance Urine Clear (Clear); Bacteria Urine Automated 1+ (Negative); Bilirubin Urine Negative (Negative); Blood Urine 2+ (Negative); Cast Urine Automated 0 /lpf (0-5); Color Urine Yellow; Glucose Urine UA Trace (Negative); Ketones Urine Negative (Negative); Leukocyte Esterase Urine Trace (Negative); Nitrite Urine Negative (Negative); Protein Urine Negative (Negative); Specific Gravity Urine 1.013 (1.000-1.030); Urobilinogen Urine Negative (Negative); pH Urine 5.5 (4.5-7.5)
[2022-06-16] MEDS: INSULIN ASPART PER UNIT CHARGE SC SCH ×7 (00:29→23:46)
[2022-06-16 05:10] LABS: Albumin Globulin Ratio 1.9 (0.9-2); Albumin Level 3.6 gm/dl (3.4-5.0); BUN Creatinine Ratio 20.2 (10-20); Bilirubin,Total 0.5 mg/dl (0.2-1.0); Calcium 8.5 mg/dl (8.6-10.3); Creatinine Clr Calc Pharmacy 37.9 ml/min; Est GFR (African American) 35.8 ml/min; Est GFR (Non-African American) 30.9 ml/min; Globulin 1.9 gm/dl (2.5-4.0); Magnesium 1.7 mg/dl (1.7-2.4); Potassium 4.3 mmol/L (3.5-5.1); Total Protein 5.5 gm/dl (6.0-8.3)
[2022-06-16 05:26] LABS: INR 3.4 (0.9-1.1); Prothrombin Time 34.6 Seconds (9.0-12.0)
[2022-06-16 06:09] LABS: Basophils # (auto) 0.01 K/uL (0-0.2); Basophils % (auto) 0.1 %; Eosinophils # (auto) 0.07 K/uL (0-0.50); Eosinophils % (auto) 0.7 %; Hematocrit (blood only) 35.1 % (42.0-52.0); Hemoglobin 11.9 g/dl (14.0-18.0); Immature Granulocytes # (auto) 0.05 K/uL (0.01-0.20); Immature Granulocytes % (auto) 0.5 %; Lymphocytes # (auto) 1.29 K/uL (1.2-3.4); Lymphocytes % (auto) 12.2 %; Mean Corpuscular Hemoglobin 32.4 pg (25.0-34.0); Mean Corpuscular Hgb Conc 33.9 g/dL (32.0-36.0); Mean Corpuscular Volume 95.6 fL (80.0-100.0); Monocytes # (auto) 0.79 K/uL (0.11-0.59); Monocytes % (auto) 7.5 %; Neutrophils # (auto) 8.37 K/uL (1.40-6.50); Platelet Count 181 K/uL (130-400); RDW Coefficient of Variation 13.4 % (11.5-14.5); RDW Standard Deviation 47.3 fL (36.4-46.3); Red Blood Count 3.67 M/uL (4.70-6.10); White Blood Count 10.58 K/ul (4.8-10.8)
[2022-06-16] MEDS: MAGNESIUM SULFATE / D5W 1 GM/100 ML BAG IV SCH ×2 (06:13→07:45)
--- NOTE | 2022-06-16 06:48 | Critical Care Progress Note ---
Date of Service June 16, 2022 Assessment & Plan (1) Syncope and collapse: (2) Acute hypotension: (3) Acute kidney injury superimposed on CKD: (4) Type 2 diabetes mellitus with complications: (5) Chronic diastolic CHF (congestive heart failure): (6) AF (atrial fibrillation): (7) Stage 3b chronic kidney disease: (8) Diabetic peripheral neuropathy associated with type 2 diabetes mellitus: Plan Reason Critically Ill: 72 year old male with a past medical history of DM II, A fib on warfarin, CKD stage 3b, HTN, HLD, CAD, chronic ILD presented with unwitnessed syncopal episode. Found to be hypotensive/bradycardic has been transitioned off vasopressors. Neuro - [facility]: NEGATIVE Syncope - Likely secondary to hypotension/bradycardia. Etiology unclear. Differential includes septic shock- mild leukocytosis, with negative procal, afebrile. Cardiogenic shock- known history of pulmonary HTN and right sided heart failure. Adrenal insufficiency less likely given cortisol= 17. VTE less likely as he is anticoagulated for a fib. Unintentional medication overdose also possible. 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, mild residual aphasia Diabetic Neuropathy - Continue pregabalin 100mg TID Cardiac - Hypotension/Bradycardia - Differential as per above; most likely medication mismanagement - Improved with 3L fluids, hydrocortisone - Holding home hypertensives; lisinopril - Was not started on vasopressors Atrial Fibrillation - On Warfarin 3mg daily, INR= 3.4; hold today's dose - Continue to trend INR, goal 2-3 - Hold diltiazem, metoprolol in the setting of bradycardia Chronic Diastolic Heart Failure in the setting of Pulmonary HTN - Most recent echo 2020; Normal LV size and grossly normal LV systolic function. EF 50-55%. Borderline dilated RV with reduced function. Mild mitral stenosis post annuloplasty ring. Trace MR. Mild TR. Moderate pulmonary HTN. - Echo without significant change from prior - Hold furosemide in the setting of GRACIE and hypotension Abdominal Aortic Aneurysm - Noted incidentally in 2017. 2.4cm 2020. Follows with Dr. Keller. US in 2021 showed infrarenal aortic dissection extending into right common iliac and right proximal mid external iliac arteries. No hemodynamic significant stenosis. HLD - Continue rosuvastatin Respiratory - Chronic ILD - Chronically on 3L at home - Currently on baseline oxygen requirement - Continue albuterol prn, fluticasone qAM Pulmonary HTN - Right heart cath 06/2021 showed normal pulmonary arterial pressures GI - No concerns at this time RENAL/LYTES - GRACIE in the setting of CKD Stage 3b - Likely secondary to hypoperfusion - Imporved from IVF, back at baseline Replace lytes as needed. - BPH - Hold tamsulosin in the setting of hypotension ENDO - DM2 - Well controlled, hemoglobin a1c= 5.6 04/2022 - Lantus 10mg BID, SSi with CF=40 and CR= 12 - Home regimen NovoLog 20units TID and Tresiba 40 units BID Follow ICU hyperglycemic protocols HEME - Stable H&H. ID - Leucocytosis - Mild leukocytosis to 11.23 with neutrophil predominance - Blood/urine cultures without growth to date LINES/IV ACCESS - PIVs intact. DVT PROPHYLAXIS - Warfarin Thank you for allowing us to be part of this patient's care. Please refer to Dr. Bro's documentation for any further recommendations. Admission and Anticipated Discharge Date Admission Date: June 15, 2022 Supervising Physician Co-Signing Physician Notes Dr. Clark was resident physician during care of patient. I separately evaluated patient for neville portions of the history and the exam. I was present during the critical portion of medical decision making, and I discussed the case with the resident. I generally agree with the findings and plan. Hypotension and bradycardia spontaneously resolved. Acute kidney injury improving. Patient afebrile with no white count, again I do not believe he is septic. He remains therapeutic and his INR secondary to systemic a nticoagulation for atrial fibrillation. Believe this was likely secondary to medication effect as the patient's gave the additional history that his pill container was spilled and he attempted to reorganize his pills best of his ability. Patient's echocardiogram was reviewed. Blood pressure had previously improved with third liter of fluid. Patient has a history of ILD of unclear etiology per review of pulmonary notes. He is followed by cardiology as well. Critical care issues appear to have resolved he is stable for downgrade out of the ICU. Subjective Vito states that he is feeling well this morning. Has not been out of bed. Slept well, appetite is good. Denies chest pain, dyspnea, nausea, lightheadedness, dizziness, palpitations. Review of Systems Review of Systems: As per above Physical Exam Physical Exam: Constitutional: well-appearing, no acute distress HEENT: NCAT, no conjunctival injection CV: irregularly irregular rhythm, no murmur appreciated, extremities well- perfused, no LE edema Resp: CTABL, mild exp wheezes, no rales/rhonchi appreciated, no increased work of breathing GI: soft, nondistended, nontender, BS normoactive MSK: no gross deformities appreciated Skin: warm, dry, no rash appreciated Neuro: alert, oriented, no focal neurologic deficit appreciated. Results & Data Results & Data Vital Signs (Past 12 Hours) Vital Signs Temp Pulse Resp BP Pulse Ox O2 Del Method O2 Flow Rate 06/16/22 04:00 79 11 L 98 06/16/22 04:00 105/75 06/16/22 03:30 66 14 98 06/16/22 03:01 76 9 L 99 06/16/22 03:01 117/52 L 06/16/22 03:00 72 10 L 99 06/16/22 02:30 79 10 L 98 06/16/22 02:00 105/52 L 06/16/22 03:00 36.5 C 06/16/22 02:00 84 14 98 06/16/22 01:30 73 15 98 06/16/22 01:00 72 14 97 06/16/22 01:00 105/60 06/16/22 00:30 81 17 98 06/16/22 00:00 74 17 98 06/16/22 00:00 113/63 06/15/22 23:30 75 14 96 06/15/22 23:00 83 17 98 06/15/22 23:00 114/61 06/15/22 22:30 76 11 L 98 06/15/22 22:01 86 22 95 06/15/22 22:01 116/75 06/15/22 22:00 81 21 96 06/15/22 21:30 100 H 18 97 06/15/22 21:00 95 H 15 98 06/15/22 21:00 112/89 06/16/22 00:00 79 06/16/22 00:00 36.5 C 06/15/22 20:30 80 98 06/15/22 20:01 21 96 06/15/22 20:01 121/89 06/15/22 20:00 20 94 06/15/22 19:30 24 89 L 06/15/22 19:00 60 16 98 06/15/22 19:00 129/71 06/15/22 20:00 36.4 C L 06/15/22 20:00 Nasal Cannula 2
[2022-06-16] MEDS: FLUTICASONE FUROATE 100MCG 14 PUFFS/INHALER INH SCH (07:45)
[2022-06-16] MEDS: ROSUVASTATIN CALCIUM 20 MG TAB PO SCH (07:45)
[2022-06-16] MEDS: LANTUS PER UNIT CHARGE SQ SCH ×2 (07:45→20:12)
[2022-06-16] MEDS: ICU Protocol for HYPERglycemia SCH (07:46)
--- NOTE | 2022-06-16 09:02 | Hospitalist Progress Note ---
Date of Service June 16, 2022 Assessment & Plan (1) Acute hypotension: Plan: acute persistent hypotension despite volume resusitation bradycardic with HR in the 40-50's, prehospital was on diltiazem and metoprolol -Hold antihypertensives and diuretics at this time - given 100 mg IV hydrocortisone - TTE, EF 40-45% dialated LV, decreased right heart function, has chronic systolic and diastolic HF CT of the chest/abd/pelvis wo con due to his GRACIE , chronic interstitial lung disease , suggestion of pulmonary htn -given GRACIE responding to ivf maybe volume depletion -elevated INR adjust warfarin (2) Syncope and collapse: Plan: acute unclear if stable -No focal neuro defects on exam, CT head negative, did loss control of bladder during his syncopal episode but it does not appear that he had a postictal period -Continue holding antihypertensives and diuretics -Seizure precautions for now (3) Acute kidney injury superimposed on CKD: Plan: -acute improving , from atn prernal state -No signs of obstruction, has been urinating well -Hold lisinopril and lasix for now - (4) Diabetes mellitus type 2, controlled: Plan: -Monitor BSG q4h for now, goal is 110-140 10 units lantus BID, CF of 40 and CR of 12 -Adjust regimen as needed with IV steroids on admission (5) AF (atrial fibrillation): Plan: -Currently in afib and bradycardic -inr 3.5 -Hold diltiazem and metoprolol for now with bradycardia -Continue HS Warfarin based on daily INR (6) Chronic diastolic CHF (congestive heart failure): Plan: -Hold lasix for now and monitor TTE ordered on admission (7) Interstitial lung disease: Plan: -Continue 3L HS -Continue home breathing treatments Admission and Anticipated Discharge Date Admission Date: June 15, 2022 Subjective Patient feels much better is not yet been out of bed he is less dizziness and lethargy typically wear CPAP at home supratherapeutic with his INR Physical Exam Physical Exam: Awake alert appropriate. Card exam regular with a systolic murmur Lungs are clear Results & Data Results & Data Vital Signs (Past 12 Hours) Vital Signs Temp Pulse Pulse Resp BP BP Pulse Ox 06/16/22 08:00 06/16/22 08:00 06/16/22 08:00 06/16/22 08:00 79 06/16/22 07:00 97.9 F 74 20 110/70 99 06/16/22 04:00 79 11 L 98 06/16/22 04:00 105/75 06/16/22 03:30 66 14 98 06/16/22 03:01 76 9 L 99 06/16/22 03:01 117/52 L 06/16/22 03:00 72 10 L 99 06/16/22 02:30 79 10 L 98 06/16/22 02:00 105/52 L 06/16/22 03:00 97.7 F 06/16/22 02:00 84 14 98 06/16/22 01:30 73 15 98 06/16/22 01:00 72 14 97 06/16/22 01:00 105/60 06/16/22 00:30 81 17 98 06/16/22 00:00 74 17 98 06/16/22 00:00 113/63 06/15/22 23:30 75 14 96 06/15/22 23:00 83 17 98 06/15/22 23:00 114/61 06/15/22 22:30 76 11 L 98 06/15/22 22:01 86 22 95 06/15/22 22:01 116/75 06/15/22 22:00 81 21 96 06/15/22 21:30 100 H 18 97 06/15/22 21:00 95 H 15 98 06/15/22 21:00 112/89 06/16/22 00:00 79 06/16/22 00:00 97.7 F O2 Del Method O2 Del Method O2 Flow Rate O2 Flow Rate FiO2 06/16/22 08:00 Nasal Cannula 2 06/16/22 08:00 Nasal Cannula 2 06/16/22 08:00 Nasal Cannula 2 06/16/22 08:00 06/16/22 07:00 Nasal Cannula 2 06/16/22 04:00 06/16/22 04:00 06/16/22 03:30 06/16/22 03:01 06/16/22 03:01 06/16/22 03:00 06/16/22 02:30 06/16/22 02:00 06/16/22 03:00 06/16/22 02:00 06/16/22 01:30 06/16/22 01:00 06/16/22 01:00 06/16/22 00:30 06/16/22 00:00 06/16/22 00:00 06/15/22 23:30 06/15/22 23:00 06/15/22 23:00 06/15/22 22:30 06/15/22 22:01 06/15/22 22:01 06/15/22 22:00 06/15/22 21:30 06/15/22 21:00 06/15/22 21:00 06/16/22 00:00 06/16/22 00:00 Laboratory Results Reviewed CBC Reviewed PRP Reviewed INR PG Care Time/CCT Total # of Minutes Spent Total Time Spent with Patient: Total time spent is greater than 50% in coordination of care (as documented) at patient's floor/unit and/or counseling patient: Coding Level of Care Code 57362 SUB INP/OBS CARE 2/35MIN Diagnoses Acute hypotension I95.9 Syncope and collapse R55 Acute kidney injury superimposed on CKD N17.9; N18.9 Diabetes mellitus type 2, controlled E11.9 AF (atrial fibrillation) I48.91 Chronic diastolic CHF (congestive heart failure) I50.32 Interstitial lung disease J84.9
--- NOTE | 2022-06-16 16:56 | Electrocardiogram Report ---
Test Reason : Blood Pressure : / mmHG Vent. Rate : 061 BPM Atrial Rate : 035 BPM P-R Int : 000 ms QRS Dur : 116 ms QT Int : 454 ms P-R-T Axes : 000 108 034 degrees QTc Int : 457 ms Poor data quality, interpretation may be adversely affected Atrial fibrillation Rightward axis Low voltage QRS Abnormal ECG When compared with ECG of 28-MAY-2022 12:01, Vent. rate has decreased BY 41 BPM Confirmed by Manny Hi ([id number]) on 06/16/2022 4:55:47 PM Referred By: REFERRED SELF Confirmed By:Manny Hi
[2022-06-16] MEDS: NOREPINEPHRINE/D5W 4 MG/250 ML PLCT IV SCH (18:46)
[2022-06-16] MEDS ORDERED: WARFARIN SOD 0.5 MG TAB PO SCH (21:00)
[2022-06-16] MEDS ORDERED: WARFARIN SOD 1 MG TAB PO SCH (21:00)
[2022-06-17] MEDS: INSULIN ASPART PER UNIT CHARGE SC SCH ×5 (04:07→19:57)
[2022-06-17 07:01] LABS: Basophils # (auto) 0.02 K/uL (0-0.2); Basophils % (auto) 0.2 %; Eosinophils # (auto) 0.09 K/uL (0-0.50); Eosinophils % (auto) 0.8 %; Hematocrit (blood only) 38.3 % (42.0-52.0); Hemoglobin 12.7 g/dl (14.0-18.0); Immature Granulocytes # (auto) 0.04 K/uL (0.01-0.20); Immature Granulocytes % (auto) 0.4 %; Mean Corpuscular Hemoglobin 32.2 pg (25.0-34.0); Mean Corpuscular Hgb Conc 33.2 g/dL (32.0-36.0); Mean Corpuscular Volume 97.2 fL (80.0-100.0); Monocytes # (auto) 1.14 K/uL (0.11-0.59); Monocytes % (auto) 10.4 %; Neutrophils # (auto) 8.42 K/uL (1.40-6.50); Neutrophils % (auto) 77.2 %; Platelet Count 189 K/uL (130-400); RDW Coefficient of Variation 13.4 % (11.5-14.5); Red Blood Count 3.94 M/uL (4.70-6.10); White Blood Count 10.91 K/ul (4.8-10.8)
[2022-06-17 07:31] LABS: Albumin Globulin Ratio 1.8 (0.9-2); Albumin Level 3.8 gm/dl (3.4-5.0); Bilirubin,Total 0.9 mg/dl (0.2-1.0); Calcium 8.8 mg/dl (8.6-10.3); Creatinine Clr Calc Pharmacy 45.3 ml/min; Est GFR (Non-African American) 39.7 ml/min; Globulin 2.1 gm/dl (2.5-4.0); Magnesium 1.7 mg/dl (1.7-2.4); Potassium 4.2 mmol/L (3.5-5.1); Total Protein 5.9 gm/dl (6.0-8.3)
[2022-06-17 07:43] LABS: Prothrombin Time 21.1 Seconds (9.0-12.0)
[2022-06-17] MEDS: PREGABALIN 100 MG CAP PO SCH ×3 (08:42→20:06)
[2022-06-17] MEDS: FLUTICASONE FUROATE 100MCG 14 PUFFS/INHALER INH SCH (08:42)
[2022-06-17] MEDS: LANTUS PER UNIT CHARGE SQ SCH ×2 (08:42→20:06)
[2022-06-17] MEDS: ROSUVASTATIN CALCIUM 20 MG TAB PO SCH (08:43)
[2022-06-17] MEDS ORDERED: ACETAMINOPHEN 500 MG TAB PO PRN (11:32)
--- NOTE | 2022-06-17 14:30 | Hospitalist Progress Note ---
Date of Service June 17, 2022 Assessment & Plan (1) Acute hypotension: Plan: acute persistent hypotension despite volume resusitation bradycardic with HR in the 40-50's, prehospital was on diltiazem and metoprolol -Hold antihypertensives and diuretics at this time - given 100 mg IV hydrocortisone - TTE, EF 40-45% dialated LV, decreased right heart function, has chronic systolic and diastolic HF CT of the chest/abd/pelvis wo con due to his GRACIE , chronic interstitial lung disease , suggestion of pulmonary htn -given GRACIE responding to ivf maybe volume depletion -elevated INR adjust warfarin follow INR now consider acute sepsis now resolved on presentation as urine did grow >100,000 enterococcus, will start ampicillin awaiting sensitivities (2) Syncope and collapse: Plan: acute unclear if stable -No focal neuro defects on exam, CT head negative, did loss control of bladder during his syncopal episode but it does not appear that he had a postictal period -Continue holding antihypertensives and diuretics prehospital was on diltiazem furosemide lisinopril and metoprolol, given history of atrial fibrillation we will start low-dose of metoprolol back to 12.5 twice daily (3) Acute kidney injury superimposed on CKD: Plan: -acute improving , from atn prernal state -No signs of obstruction, has been urinating well -Hold lisinopril and lasix for now - (4) Diabetes mellitus type 2, controlled: Plan: -Monitor BSG q4h for now, goal is 110-140 10 units lantus BID, CF of 40 and CR of 12 -Adjust regimen as needed with IV steroids on admission (5) AF (atrial fibrillation): Plan: -Currently in afib and bradycardic Restarting metoprolol low-dose -Hold diltiazem -Continue HS Warfarin based on daily INR (6) Chronic diastolic CHF (congestive heart failure): Plan: -Hold lasix for now and monitor TTE ordered on admission (7) Interstitial lung disease: Plan: -Continue 3L HS -Continue home breathing treatments Admission and Anticipated Discharge Date Admission Date: June 15, 2022 Subjective Patient feels much better is not yet been out of bed he is less dizziness and lethargy typically wear CPAP at home supratherapeutic with his INR found to have enterococcal UTI, will start ampicillin and await sensitivities Physical Exam Physical Exam: Awake alert appropriate. Card exam regular with a systolic murmur Lungs are clear Results & Data Results & Data Vital Signs (Past 12 Hours) Vital Signs Temp Pulse Resp BP Pulse Ox O2 Del Method O2 Del Method 06/17/22 11:18 97.5 F L 78 18 94/54 L 97 Nasal Cannula 06/17/22 08:00 Room Air 06/17/22 08:00 Nasal Cannula 06/17/22 07:17 97.9 F 103 H 20 109/69 96 Nasal Cannula 06/17/22 04:00 97.9 F 99 H 20 107/55 L 94 Nasal Cannula O2 Flow Rate O2 Flow Rate 06/17/22 11:18 2 06/17/22 08:00 2 06/17/22 08:00 2 06/17/22 07:17 2 06/17/22 04:00 2.0 Laboratory Results Reviewed CBC Reviewed PRP Reviewed coagulation Reviewed urine culture PG Care Time/CCT Total # of Minutes Spent Total Time Spent with Patient: Total time spent is greater than 50% in coordination of care (as documented) at patient's floor/unit and/or counseling patient: Coding Level of Care Code 92182 SUB INP/OBS CARE 3/50MIN Diagnoses Acute hypotension I95.9 Syncope and collapse R55 Acute kidney injury superimposed on CKD N17.9; N18.9 Diabetes mellitus type 2, controlled E11.9 AF (atrial fibrillation) I48.91 Chronic diastolic CHF (congestive heart failure) I50.32 Interstitial lung disease J84.9
[2022-06-17] MEDS: AMPICILLIN 2,000 MG in SODIUM CHLOR 0.9% AD-VAN 100 ML IV SCH (15:13)
[2022-06-17] MEDS: WARFARIN SOD 2.5 MG TAB PO SCH (15:49)
[2022-06-17] MEDS: METOPROLOL TARTRATE 25 MG TAB PO SCH (20:07)
[2022-06-17] MEDS ORDERED: Nursing to Pharmacy Communication SCH (22:00)
[2022-06-18] MEDS: AMPICILLIN 2,000 MG in SODIUM CHLOR 0.9% AD-VAN 100 ML IV SCH ×4 (00:28→20:14)
[2022-06-18] MEDS: INSULIN ASPART PER UNIT CHARGE SC SCH ×7 (03:19→23:38)
[2022-06-18 07:11] LABS: Basophils # (auto) 0.02 K/uL (0-0.2); Basophils % (auto) 0.2 %; Eosinophils # (auto) 0.13 K/uL (0-0.50); Eosinophils % (auto) 1.2 %; Hematocrit (blood only) 39.6 % (42.0-52.0); Hemoglobin 13.1 g/dl (14.0-18.0); Immature Granulocytes # (auto) 0.05 K/uL (0.01-0.20); Immature Granulocytes % (auto) 0.5 %; Lymphocytes # (auto) 1.56 K/uL (1.2-3.4); Lymphocytes % (auto) 14.1 %; Mean Corpuscular Hgb Conc 33.1 g/dL (32.0-36.0); Mean Corpuscular Volume 96.8 fL (80.0-100.0); Monocytes # (auto) 1.27 K/uL (0.11-0.59); Monocytes % (auto) 11.5 %; Neutrophils # (auto) 8.02 K/uL (1.40-6.50); Neutrophils % (auto) 72.5 %; Platelet Count 191 K/uL (130-400); RDW Coefficient of Variation 13.5 % (11.5-14.5); RDW Standard Deviation 48.3 fL (36.4-46.3); Red Blood Count 4.09 M/uL (4.70-6.10); White Blood Count 11.05 K/ul (4.8-10.8)
[2022-06-18 07:18] LABS: Albumin Globulin Ratio 1.5 (0.9-2); Albumin Level 3.8 gm/dl (3.4-5.0); BUN Creatinine Ratio 14.5 (10-20); Bilirubin,Total 0.9 mg/dl (0.2-1.0); Calcium 9.2 mg/dl (8.6-10.3); Creatinine Clr Calc Pharmacy 52.3 ml/min; Est GFR (African American) 55.4 ml/min; Est GFR (Non-African American) 47.8 ml/min; Globulin 2.5 gm/dl (2.5-4.0); Magnesium 1.7 mg/dl (1.7-2.4); Potassium 4.5 mmol/L (3.5-5.1); Total Protein 6.3 gm/dl (6.0-8.3)
[2022-06-18 07:35] LABS: INR 1.6 (0.9-1.1); Prothrombin Time 16.7 Seconds (9.0-12.0)
[2022-06-18] MEDS: ROSUVASTATIN CALCIUM 20 MG TAB PO SCH (08:24)
[2022-06-18] MEDS: METOPROLOL TARTRATE 25 MG TAB PO SCH ×2 (08:24→20:20)
[2022-06-18] MEDS: FLUTICASONE FUROATE 100MCG 14 PUFFS/INHALER INH SCH (08:25)
[2022-06-18] MEDS: PREGABALIN 100 MG CAP PO SCH ×3 (08:32→20:16)
[2022-06-18] MEDS: LANTUS PER UNIT CHARGE SQ SCH ×2 (08:34→20:17)
[2022-06-18] MEDS: NOREPINEPHRINE/D5W 4 MG/250 ML PLCT IV SCH (09:44)
[2022-06-18] MEDS: WARFARIN SOD 1 MG TAB PO SCH (16:42)
[2022-06-18] MEDS: WARFARIN SOD 2.5 MG TAB PO SCH (16:42)
--- NOTE | 2022-06-18 16:51 | Hospitalist Progress Note ---
Date of Service June 18, 2022 Assessment & Plan (1) Acute hypotension: Plan: Hypotension. Acute, persistent. Patient with concurrent bradycardia with some chronotropic response, rate in the 50s today TTE: EF 40-45%, dilated LV, decreased right heart function, systolic and diastolic combined heart failure CTchest: Chronic interstitial lung disease, evidence of pulmonary hypertension Initial concern for accidental overdose of medication, patient now with Ente rococcus UTI contributing. Patient is continued on ampicillin, final culture/sensitivities remain pending Patient with significant orthostasis 06/18, remained stable in bed UTI treatment as below Metoprolol dose decreased to 12.5 mg twice daily (2) Syncope and collapse: Plan: Acute episode, no recurrence -No focal neuro defects on exam, CT head negative, did loss control of bladder during his syncopal episode but it does not appear that he had a postictal period -Continue holding antihypertensives and diuretics prehospital was on diltiazem furosemide lisinopril and metoprolol. Metoprolol low-dose was restarted due to history of A-fib Remains with orthostatic vitals despite multiple blood pressures being held, is asymptomatic while in bed (3) Acute kidney injury superimposed on CKD: Plan: -Continuing to avoid Remains mildly hypotensive Lasix/lisinopril remain held - (4) Diabetes mellitus type 2, controlled: Plan: -Monitor BSG q4h for now, goal is 110-140 10 units lantus BID, CF of 40 and CR of 12 -BSG adequately controlled (5) AF (atrial fibrillation): Plan: -Currently in afib and bradycardic Continued on low-dose metoprolol -Hold diltiazem Warfarin continued, additional 1 mg given 06/18 for slightly subtherapeutic INR. INR daily (6) Chronic diastolic CHF (congestive heart failure): Plan: -Hold lasix for now and monitor TTE ordered on admission (7) Interstitial lung disease: Plan: -Continue 3L HS -Continue home breathing treatments Admission and Anticipated Discharge Date Admission Date: June 15, 2022 Subjective Seen at the bedside. Feels improved, denies fever/chills/sweats. No chest pain or chest pressure. Does still feel weak, but improving and dizziness while still present is not present at rest. Notes that he has gotten very dizzy when attempting to stand. Has not passed out. No pain with urination. No shortness of breath. Review of Systems Review of Systems: All systems reviewed & are unremarkable except as noted in Subjective Physical Exam Physical Exam: General: A&Ox3. NAD. Cooperative. HEENT: Atraumatic, normocephalic. Pulm: CTAB A&P. -wheezes, -rales, -rhonchi. Symmetrical chest rise. No increase in work of breathing. No respiratory distress. Cardiac: RRR,+sm. Radial pulses intact and symmetrical. Abdominal: Nontender, nondistended, soft. BS present. Extremities: Warm, dry Results & Data Results & Data Vital Signs (Past 12 Hours) Vital Signs Temp Pulse Resp BP Pulse Ox O2 Del Method O2 Flow Rate 06/18/22 15:36 98 06/18/22 15:04 36.7 C 55 L 19 97/74 L 99 Nasal Cannula 2 06/18/22 11:26 36.3 C L 101 H 19 110/63 98 Nasal Cannula 2 06/18/22 08:00 Nasal Cannula 2 06/18/22 07:49 36.5 C 94 H 18 124/73 98 Nasal Cannula 2 PG Care Time/CCT Total # of Minutes Spent Total Time Spent with Patient: Total time spent is greater than 50% in coordination of care (as documented) at patient's floor/unit and/or counseling patient: Coding Level of Care Code 54505 SUB INP/OBS CARE 2/35MIN Diagnoses Acute hypotension I95.9 Syncope and collapse R55 Acute kidney injury superimposed on CKD N17.9; N18.9 Diabetes mellitus type 2, controlled E11.9 AF (atrial fibrillation) I48.91 Chronic diastolic CHF (congestive heart failure) I50.32 Interstitial lung disease J84.9
[2022-06-19] MEDS: AMPICILLIN 2,000 MG in SODIUM CHLOR 0.9% AD-VAN 100 ML IV SCH ×4 (02:33→20:48)
[2022-06-19] MEDS: INSULIN ASPART PER UNIT CHARGE SC SCH ×5 (03:58→21:04)
[2022-06-19 06:51] LABS: Basophils # (auto) 0.02 K/uL (0-0.2); Basophils % (auto) 0.2 %; Eosinophils # (auto) 0.25 K/uL (0-0.50); Eosinophils % (auto) 2.8 %; Hematocrit (blood only) 36.7 % (42.0-52.0); Hemoglobin 12.5 g/dl (14.0-18.0); Immature Granulocytes # (auto) 0.06 K/uL (0.01-0.20); Immature Granulocytes % (auto) 0.7 %; Lymphocytes % (auto) 12.3 %; Mean Corpuscular Hemoglobin 32.2 pg (25.0-34.0); Mean Corpuscular Hgb Conc 34.1 g/dL (32.0-36.0); Mean Corpuscular Volume 94.6 fL (80.0-100.0); Mean Platelet Volume 9.8 fL (9.4-12.4); Neutrophils # (auto) 6.64 K/uL (1.40-6.50); Platelet Count 146 K/uL (130-400); RDW Coefficient of Variation 13.6 % (11.5-14.5); RDW Standard Deviation 46.7 fL (36.4-46.3); Red Blood Count 3.88 M/uL (4.70-6.10); White Blood Count 8.97 K/ul (4.8-10.8)
[2022-06-19 07:04] LABS: BUN Creatinine Ratio 16.3 (10-20); Calcium 8.9 mg/dl (8.6-10.3); Creatinine Clr Calc Pharmacy 51.2 ml/min; Est GFR (African American) 54.5 ml/min
[2022-06-19 07:25] LABS: INR 1.4 (0.9-1.1); Prothrombin Time 14.8 Seconds (9.0-12.0)
[2022-06-19] MEDS ORDERED: METOPROLOL TARTRATE 1 MG/ML VIAL IV STA (07:59)
[2022-06-19] MEDS: LANTUS PER UNIT CHARGE SQ SCH ×2 (08:14→21:04)
[2022-06-19] MEDS: FLUTICASONE FUROATE 100MCG 14 PUFFS/INHALER INH SCH (08:18)
[2022-06-19] MEDS: ROSUVASTATIN CALCIUM 20 MG TAB PO SCH (08:19)
[2022-06-19] MEDS: METOPROLOL TARTRATE 25 MG TAB PO SCH ×3 (08:19→20:49)
[2022-06-19] MEDS ORDERED: METOPROLOL TARTRATE 25 MG TAB PO ONE (08:48)
[2022-06-19] MEDS: PREGABALIN 100 MG CAP PO SCH ×3 (09:20→21:04)
[2022-06-19] MEDS: WARFARIN SOD 2.5 MG TAB PO SCH (17:10)
[2022-06-19] MEDS: WARFARIN SOD 1 MG TAB PO SCH (17:10)
--- NOTE | 2022-06-19 22:13 | Hospitalist Progress Note ---
Date of Service June 19, 2022 Assessment & Plan (1) Acute hypotension: Plan: Hypotension. Acute, persistent. Patient with concurrent bradycardia with some chronotropic response, rate in the 50s today TTE: EF 40-45%, dilated LV, decreased right heart function, systolic and diastolic combined heart failure CTchest: Chronic interstitial lung disease, evidence of pulmonary hypertension Initial concern for accidental overdose of medication, patient now with Ente rococcus UTI contributing. Patient is continued on ampicillin, final culture/sensitivities remain pending Patient with significant orthostasis 06/18, remained stable in bed UTI treatment as below -Likely from acute sepsis, and his complicated UTI. will require 7 days of IV antibiotics given that this grew. E. Faecalis. As patient has been improving, though BP is still in the 90s, low 100s, will increase metorpolol dose to 25 mg PO TID, his home dose is 25 mg PO BID. he may benefit from succinate at discharge or once HR stabilizes given his chronic systolic cardiac dysfunction (CHF) (2) Syncope and collapse: Plan: Acute episode, no recurrence acute sepsis now resolved on presentation as urine did grow >100,000 enteroco ccus, will start ampicillin awaiting sensitivities -No focal neuro defects on exam, CT head negative, did loss control of bladder during his syncopal episode but it does not appear that he had a postictal period -Continue holding antihypertensives and diuretics prehospital was on diltiazem furosemide lisinopril and metoprolol. Metoprolol low-dose was restarted due to history of A-fib Remains with orthostatic vitals despite multiple blood pressures being held, is asymptomatic while in bed (3) Acute kidney injury superimposed on CKD: Plan: -Continuing to avoid Remains mildly hypotensive Lasix/lisinopril remain held - (4) Diabetes mellitus type 2, controlled: Plan: -Monitor BSG q4h for now, goal is 110-140 10 units lantus BID, CF of 40 and CR of 12 -BSG adequately controlled (5) AF (atrial fibrillation): Plan: -Currently in afib and bradycardic Continued on low-dose metoprolol -Hold diltiazem Warfarin continued, additional 1 mg given 06/18 for slightly subtherapeutic INR. INR daily (6) Chronic diastolic CHF (congestive heart failure): Plan: -Hold lasix for now and monitor TTE ordered on admission (7) Interstitial lung disease: Plan: -Continue 3L HS -Continue home breathing treatments Admission and Anticipated Discharge Date Admission Date: June 15, 2022 Subjective Patient reports no new symptoms. He would like to be discharged soon. Review of Systems Review of Systems: All systems reviewed & are unremarkable except as noted in HPI & below Physical Exam Physical Exam: General: A&Ox3. NAD. Cooperative. HEENT: Atraumatic, normocephalic. Pulm: CTAB A&P. -wheezes, -rales, -rhonchi. Symmetrical chest rise. No increase in work of breathing. No respiratory distress. Cardiac: RRR,+sm. Radial pulses intact and symmetrical. Abdominal: Nontender, nondistended, soft. BS present. Extremities: Warm, dry Results & Data Results & Data Vital Signs (Past 12 Hours) Vital Signs Temp Pulse Pulse Resp BP Pulse Ox O2 Del Method 06/19/22 19:36 36.5 C 99 H 20 104/51 L 98 Nasal Cannula 06/19/22 17:12 36.9 C 109 H 20 102/65 97 Nasal Cannula 06/19/22 14:19 101 H 06/19/22 14:20 109 H 110/74 06/19/22 11:46 37.0 C 95 H 22 101/50 L 99 Nasal Cannula O2 Flow Rate 06/19/22 19:36 2 06/19/22 17:12 2 06/19/22 14:19 06/19/22 14:20 06/19/22 11:46 2 PG Care Time/CCT Total # of Minutes Spent Total Time Spent with Patient: Total time spent is greater than 50% in coordination of care (as documented) at patient's floor/unit and/or counseling patient: Coding Level of Care Code 03071 SUB INP/OBS CARE 3/50MIN Diagnoses Acute hypotension I95.9 Syncope and collapse R55 Acute kidney injury superimposed on CKD N17.9; N18.9 Diabetes mellitus type 2, controlled E11.9 AF (atrial fibrillation) I48.91 Chronic diastolic CHF (congestive heart failure) I50.32 Interstitial lung disease J84.9
[2022-06-20] MEDS: AMPICILLIN 2,000 MG in SODIUM CHLOR 0.9% AD-VAN 100 ML IV SCH ×4 (01:44→20:18)
[2022-06-20 06:23] LABS: Hematocrit (blood only) 36.2 % (42.0-52.0); Hemoglobin 12.4 g/dl (14.0-18.0); Mean Corpuscular Hemoglobin 32.8 pg (25.0-34.0); Mean Corpuscular Hgb Conc 34.3 g/dL (32.0-36.0); Mean Corpuscular Volume 95.8 fL (80.0-100.0); Mean Platelet Volume 9.9 fL (9.4-12.4); Platelet Count 160 K/uL (130-400); RDW Coefficient of Variation 13.6 % (11.5-14.5); RDW Standard Deviation 48.1 fL (36.4-46.3); Red Blood Count 3.78 M/uL (4.70-6.10); White Blood Count 8.72 K/ul (4.8-10.8)
[2022-06-20 06:26] LABS: BUN Creatinine Ratio 18.2 (10-20); Calcium 8.9 mg/dl (8.6-10.3); Creatinine Clr Calc Pharmacy 54.9 ml/min; Est GFR (African American) 59.3 ml/min; Est GFR (Non-African American) 51.2 ml/min
[2022-06-20] MEDS: INSULIN ASPART PER UNIT CHARGE SC SCH ×4 (08:13→20:41)
[2022-06-20] MEDS: LANTUS PER UNIT CHARGE SQ SCH ×2 (08:14→20:41)
[2022-06-20] MEDS: PREGABALIN 100 MG CAP PO SCH ×3 (08:20→20:40)
[2022-06-20] MEDS: ROSUVASTATIN CALCIUM 20 MG TAB PO SCH (08:21)
[2022-06-20] MEDS: FLUTICASONE FUROATE 100MCG 14 PUFFS/INHALER INH SCH (08:21)
[2022-06-20] MEDS ORDERED: SODIUM CHLORIDE 0.9% 500 ML IV SCH (09:45)
[2022-06-20] MEDS: METOPROLOL TARTRATE 25 MG TAB PO SCH (10:14)
[2022-06-20] MEDS: METOPROLOL SUCC 25MG EXT REL TAB PO SCH ×2 (10:16→20:39)
[2022-06-20] MEDS: WARFARIN SOD 1 MG TAB PO SCH (16:53)
[2022-06-20] MEDS: WARFARIN SOD 2.5 MG TAB PO SCH (16:54)
--- NOTE | 2022-06-20 23:02 | Hospitalist Progress Note ---
Date of Service June 20, 2022 Assessment & Plan (1) Acute hypotension: Plan: Hypotension. Acute, persistent. Patient with concurrent bradycardia with some chronotropic response, rate in the 50s today TTE: EF 40-45%, dilated LV, decreased right heart function, systolic and diastolic combined heart failure CTchest: Chronic interstitial lung disease, evidence of pulmonary hypertension Initial concern for accidental overdose of medication, patient now with Ente rococcus UTI contributing. Patient is continued on ampicillin, final culture/sensitivities remain pending Patient with significant orthostasis 06/18, remained stable in bed UTI treatment as below -Likely from acute sepsis, and his complicated UTI. will require 7 days of IV antibiotics given that this grew. E. Faecalis. As patient has been improving, though BP is still in the 90s, low 100s, will increase metorpolol dose to 25 mg PO TID, his home dose is 25 mg PO BID. he may benefit from succinate at discharge or once HR stabilizes given his chronic systolic cardiac dysfunction (CHF) His HR appears bettwer controlled. Currently on Metorpolol succinate 37.5 mg BID, will monitor HR, consider getting orthostatic vitals. (2) Syncope and collapse: Plan: Acute episode, no recurrence acute sepsis now resolved on presentation as urine did grow >100,000 enterococcus, will start ampicillin awaiting sensitivities -No focal neuro defects on exam, CT head negative, did loss control of bladder during his syncopal episode but it does not appear that he had a postictal period -Continue holding antihypertensives and diuretics prehospital was on diltiazem furosemide lisinopril and metoprolol. Metoprolol low-dose was restarted due to history of A-fib Remains with orthostatic vitals despite multiple blood pressures being held, is asymptomatic while in bed (3) Acute kidney injury superimposed on CKD: Plan: -Continuing to avoid Remains mildly hypotensive Lasix/lisinopril remain held - (4) Diabetes mellitus type 2, controlled: Plan: -Monitor BSG q4h for now, goal is 110-140 10 units lantus BID, CF of 40 and CR of 12 -BSG adequately controlled (5) AF (atrial fibrillation): Plan: -Currently in afib and bradycardic Continued on low-dose metoprolol -Hold diltiazem Warfarin continued, additional 1 mg given 06/18 for slightly subtherapeutic INR. INR daily (6) Chronic diastolic CHF (congestive heart failure): Plan: -Hold lasix for now and monitor TTE ordered on admission (7) Interstitial lung disease: Plan: -Continue 3L HS -Continue home breathing treatments Admission and Anticipated Discharge Date Admission Date: June 15, 2022 Subjective Patient reports feeling well. He still felt dizzy when ambulating. Review of Systems Review of Systems: All systems reviewed & are unremarkable except as noted in HPI & below Physical Exam Physical Exam: General: A&Ox3. NAD. Cooperative. HEENT: Atraumatic, normocephalic. Pulm: CTAB A&P. -wheezes, -rales, -rhonchi. Symmetrical chest rise. No increase in work of breathing. No respiratory distress. Cardiac: RRR,+sm. Radial pulses intact and symmetrical. Abdominal: Nontender, nondistended, soft. BS present. Extremities: Warm, dry Results & Data Results & Data Vital Signs (Past 12 Hours) Vital Signs Temp Pulse Resp BP Pulse Ox O2 Del Method O2 Flow Rate 06/20/22 20:00 Nasal Cannula 2 06/20/22 19:37 36.5 C 93 H 18 106/60 98 Nasal Cannula 2 06/20/22 16:46 36.3 C L 99 H 16 106/66 97 Nasal Cannula 2 06/20/22 14:40 110/69 06/20/22 12:06 36.7 C 95 H 17 111/70 95 Nasal Cannula 2 PG Care Time/CCT Total # of Minutes Spent Total Time Spent with Patient: Total time spent is greater than 50% in coordination of care (as documented) at patient's floor/unit and/or counseling patient: Coding Level of Care Code 86046 SUB INP/OBS CARE 2/35MIN Diagnoses Acute hypotension I95.9 Syncope and collapse R55 Acute kidney injury superimposed on CKD N17.9; N18.9 Diabetes mellitus type 2, controlled E11.9 AF (atrial fibrillation) I48.91 Chronic diastolic CHF (congestive heart failure) I50.32 Interstitial lung disease J84.9
[2022-06-21] MEDS: AMPICILLIN 2,000 MG in SODIUM CHLOR 0.9% AD-VAN 100 ML IV SCH ×4 (02:57→19:37)
[2022-06-21] MEDS: INSULIN ASPART PER UNIT CHARGE SC SCH ×4 (07:41→20:26)
[2022-06-21] MEDS: LANTUS PER UNIT CHARGE SQ SCH ×2 (08:00→20:26)
[2022-06-21] MEDS: METOPROLOL SUCC 25MG EXT REL TAB PO SCH ×2 (08:41→20:21)
[2022-06-21] MEDS: PREGABALIN 100 MG CAP PO SCH ×3 (08:43→20:27)
[2022-06-21] MEDS: ROSUVASTATIN CALCIUM 20 MG TAB PO SCH (08:43)
[2022-06-21] MEDS: FLUTICASONE FUROATE 100MCG 14 PUFFS/INHALER INH SCH (08:43)
--- NOTE | 2022-06-21 12:22 | XRay Report ---
XR chest 2V PA/lateral CLINICAL HISTORY: Hypoxia. COMPARISON STUDY: Chest radiograph and chest CT June 15, 2022. FINDINGS: Cardiomegaly and a prosthetic mitral valve are noted. There is no pneumothorax. No definite pleural effusion is present. There is no consolidation to suggest pneumonia. Subtle interstitial thi ckening is likely chronic. IMPRESSION: 1. No acute cardiopulmonary findings. Cardiomegaly. 2. Subtle interstitial thickening which is likely chronic. ACT 112: Negative or not required by law. Electronically signed by: Mc Concepcion M.D. 06/21/2022 12:20 PM
[2022-06-21] MEDS: WARFARIN SOD 2.5 MG TAB PO SCH (16:42)
[2022-06-21] MEDS: WARFARIN SOD 1 MG TAB PO SCH (16:42)
[2022-06-21 17:56] LABS: Hematocrit (blood only) 32.9 % (42.0-52.0); Hemoglobin 11.2 g/dl (14.0-18.0); Mean Corpuscular Hemoglobin 32.3 pg (25.0-34.0); Mean Corpuscular Volume 94.8 fL (80.0-100.0); Mean Platelet Volume 10.1 fL (9.4-12.4); Platelet Count 158 K/uL (130-400); RDW Coefficient of Variation 13.7 % (11.5-14.5); RDW Standard Deviation 46.9 fL (36.4-46.3); Red Blood Count 3.47 M/uL (4.70-6.10); White Blood Count 7.31 K/ul (4.8-10.8)
[2022-06-21 18:12] LABS: BUN Creatinine Ratio 16.3 (10-20); Calcium 8.8 mg/dl (8.6-10.3); Creatinine Clr Calc Pharmacy 55.2 ml/min; Est GFR (African American) 60.4 ml/min; Est GFR (Non-African American) 52.1 ml/min; Potassium 4.2 mmol/L (3.5-5.1)
--- NOTE | 2022-06-21 20:13 | Hospitalist Progress Note ---
Date of Service June 21, 2022 Assessment & Plan (1) Acute hypotension: Plan: Hypotension. Acute, persistent. Patient with concurrent bradycardia with some chronotropic response, rate initially low in the 50s -Patient did have rebound tachycardia, and restarting BB, still holding diitazem. -tolerating 37.5 mg of metoprolol succinate BID -he may benefit from succinate at discharge or once HR stabilizes given his chronic systolic cardiac dysfunction (CHF) TTE: EF 40-45%, dilated LV, decreased right heart function, systolic and diastolic combined heart failure CTchest: Chronic interstitial lung disease, evidence of pulmonary hypertension Initial concern for accidental overdose of medication, patient now with Enterococcus faecalis, complicated UTI contributing to presentation of acute sepsis. Patient is continued on ampicillin, final culture/sensitivities confirm sensitivity. will treat for 7 days total. End date on 06/24 at 15:00; will discharge on continuous ampicillin/ US guided peripheral line already placed Orthostasis present since admission, however improving on 06/21 UTI treatment as below -Likely from acute sepsis, and his complicated UTI. -will restart diuretics on 06/22 (2) Syncope and collapse: Plan: Acute episode, no recurrence acute sepsis now resolved on presentation as urine did grow >100,000 enterococcus, will start ampicillin awaiting sensitivities -No focal neuro defects on exam, CT head negative, did loss control of bladder during his syncopal episode but it does not appear that he had a postictal period -Continue holding antihypertensives and diuretics prehospital was on diltiazem furosemide lisinopril and metoprolol. Metoprolol low-dose was restarted due to history of A-fib orthostatic vitals improved on 06/22 (3) Acute kidney injury superimposed on CKD: Plan: -Continuing to avoid Remains mildly hypotensive Lasix/lisinopril remain held - will restart lasix on 06/22 (4) Diabetes mellitus type 2, controlled: Plan: -Monitor BSG q4h for now, goal is 110-140 10 units lantus BID, CF of 40 and CR of 12 -BSG adequately controlled (5) AF (atrial fibrillation): Plan: -Currently in afib and bradycardic Continued on low-dose metoprolol -Hold diltiazem Warfarin continued, additional 1 mg given 06/18 for slightly subtherapeutic INR. INR daily will recheck on 06/22 as patient has been on coumadin 3.5 mg daily for past 3 days, anticpate INR to be higher. (6) Chronic diastolic CHF (congestive heart failure): Plan: -initally held lasix, will resume on wednesday. chest x ray does not show any signs of fluid overload. (7) Interstitial lung disease: Plan: -Continue 3L HS -Continue home breathing treatments Admission and Anticipated Discharge Date Admission Date: June 15, 2022 Subjective Patient reports feeling better today. He states he has less dizziness and orthostatic symptoms when he stands up Review of Systems Review of Systems: All systems reviewed & are unremarkable except as noted in HPI & below Physical Exam Physical Exam: General: A&Ox3. NAD. Cooperative. HEENT: Atraumatic, normocephalic. Pulm: CTAB A&P. -wheezes, -rales, -rhonchi. Symmetrical chest rise. No increase in work of breathing. No respiratory distress. Cardiac: RRR,+sm. Radial pulses intact and symmetrical. Abdominal: Nontender, nondistended, soft. BS present. Extremities: Warm, dry Results & Data Results & Data Vital Signs (Past 12 Hours) Vital Signs Temp Pulse Pulse Resp BP Pulse Ox O2 Del Method 06/21/22 19:20 Nasal Cannula 06/21/22 19:00 36.6 C 95 H 18 108/64 97 Nasal Cannula 06/21/22 16:45 36.6 C 91 H 24 113/68 98 Nasal Cannula 06/21/22 15:34 89 06/21/22 11:54 36.4 C L 91 H 20 100/64 100 Nasal Cannula O2 Flow Rate 06/21/22 19:20 2 06/21/22 19:00 2 06/21/22 16:45 2 06/21/22 15:34 06/21/22 11:54 2 PG Care Time/CCT Total # of Minutes Spent Total Time Spent with Patient: Total time spent is greater than 50% in coordination of care (as documented) at patient's floor/unit and/or counseling patient: Coding Level of Care Code 97486 SUB INP/OBS CARE 3/50MIN Diagnoses Acute hypotension I95.9 Syncope and collapse R55 Acute kidney injury superimposed on CKD N17.9; N18.9 Diabetes mellitus type 2, controlled E11.9 AF (atrial fibrillation) I48.91 Chronic diastolic CHF (congestive heart failure) I50.32 Interstitial lung disease J84.9
[2022-06-22] MEDS: AMPICILLIN 2,000 MG in SODIUM CHLOR 0.9% AD-VAN 100 ML IV SCH ×2 (02:55→08:24)
[2022-06-22 06:44] LABS: Hematocrit (blood only) 33.7 % (42.0-52.0); Hemoglobin 11.4 g/dl (14.0-18.0); Mean Corpuscular Hemoglobin 32.7 pg (25.0-34.0); Mean Corpuscular Hgb Conc 33.8 g/dL (32.0-36.0); Mean Corpuscular Volume 96.6 fL (80.0-100.0); Platelet Count 161 K/uL (130-400); RDW Coefficient of Variation 13.6 % (11.5-14.5); RDW Standard Deviation 48.2 fL (36.4-46.3); Red Blood Count 3.49 M/uL (4.70-6.10); White Blood Count 6.39 K/ul (4.8-10.8)
[2022-06-22 06:58] LABS: BUN Creatinine Ratio 18.1 (10-20); C Reactive Protein 3.05 mg/dl (0-0.5); Calcium 8.7 mg/dl (8.6-10.3); Est GFR (African American) 81.8 ml/min; Est GFR (Non-African American) 70.6 ml/min; Potassium 3.9 mmol/L (3.5-5.1)
[2022-06-22 07:04] LABS: INR 1.6 (0.9-1.1); Prothrombin Time 16.8 Seconds (9.0-12.0)
[2022-06-22] MEDS: ROSUVASTATIN CALCIUM 20 MG TAB PO SCH (08:23)
[2022-06-22] MEDS: METOPROLOL SUCC 25MG EXT REL TAB PO SCH (08:23)
[2022-06-22] MEDS: FLUTICASONE FUROATE 100MCG 14 PUFFS/INHALER INH SCH (08:24)
[2022-06-22] MEDS: INSULIN ASPART PER UNIT CHARGE SC SCH ×2 (08:26→11:44)
[2022-06-22] MEDS: LANTUS PER UNIT CHARGE SQ SCH (08:26)
[2022-06-22] MEDS: PREGABALIN 100 MG CAP PO SCH (08:32)
[2022-06-22] MEDS ORDERED: FUROSEMIDE 40 MG TAB PO SCH (09:00)
--- NOTE | 2022-06-22 13:06 | Discharge Summary ---
Date of Service June 22, 2022 Admission HPI Per Admitting Provider Vito Babb is a 72-year-old male with a past medical history of type II DM, A-fib on warfarin, CKD, HTN, hyperlipidemia, CAD, ILD who presented to the [facility] ED on 06/15/22 due to an unwitnessed syncopal episode at home. In the ED he was found to be afebrile, hypotensive at 72/38, bradycardic with HR in the 40-50s and stable on 3L NC while was started by EMS. Labs were significant for a leukocytosis of 11 with left shift of 9.24, lymphocyte count of 1.03, Cr of 2.76 (baseline appears to be near 2.0), BUN of 52. CT of the head WO con and chest xray were read as negative for acute findings. Prior to admission the patient was given 2L NSS, a dose of cefepime, and was ordered another 1L NSS. At the time of the exam the patient was lying flat in bed in no acute distress. He states that over the past 3 days or so he has felt more weak than his baseline. He states that he went to hinduism yesterday but felt too weak to kneel or stand during the service. This am he did not feel significantly different and went to his Daughter's house to help care for his Grandson primary school teacher librarian. He states that he was in his grandson's room when he felt "off".. He has trouble describing the sensation but may have felt light headed. He then passed out and woke on the floor of his grandson's room. He was not confused when he woke but he did lose control of his bladder and urinated himself during his syncopal episode. He states that he has felt cold/had the chills recently but denies any recent fevers. He denies current head, neck, and back pain. Headache, changes in visions, hearing, taste, smell, chest pain, increased SOB compared to baseline, and pain, nausea, vomiting, dysuria, hematuria, increased urinary frequency, diarrhea, bloody BM's, LE swelling, wounds/pressure sores, and other recent falls/trauma. He tells me he feels as though his voice is a different pitch/is sounds off compared to baseline. He does not feel as though he is having trouble with word finding or getting his words out. He is currently on 3L HS and recently followed up with Pulmonology outpatient without changes to his medication regimen. He is a full code and would want his to make medical decisions for him if he could not make them himself. Per chart review, the patient was last admitted to [facility] from 05/28/22-05/30/22 for acute hypoxic respiratory failure due to community acquired pneumonia and chronic ILD. He was treated with IV antibiotics and IV steroids while admitted and discharged on Cefdinir/azithromycin and a 4 day course of 40 mg PO Prednisone. Of note, no home medication changes were made during his last admission. Please refer to Dr. Banda's attestation for any changes to the treatment plan. Principal Diagnosis Hypotension, GRACIE Enterococcus UTI Discharge Exam Constitutional WD/WN, vitals as above + obese Eyes + anicteric sclerae Respiratory normal respiratory effort, lungs clear to auscultation Cardiovascular Rate/Rhythm: regular rate and + irregularly irregular Heart Sounds: no murmur Extremities: + edema (trace ankle edema bilat) Gastrointestinal (Abdomen) normal bowel sounds, soft, nontender, no hepatosplenomegaly Neurologic no focal motor deficits and not confused Psychiatric A+Ox3, euthymic affect Discharge Data Allergies Allergy/AdvReac Type Severity Reaction Status Date / Time [facility] AdvReac Intermediate Diarrhea , Verified 06/01/22 13:11 nausea Consultations 06/15/22 12:53 ED Decision to Admit Stat 06/15/22 16:27 Consult Genetics Physician Routine Ordered Studies 06/15/22 10:39 CT head/brain wo con Stat 06/15/22 13:21 CT abd pelvis wo con Stat CT chest diagnostic wo con Stat ECHO Hospital Course (1) Acute hypotension: Hypotension. Resolved--> secondary to sepsis from UTI as well as possible accidental medication overdose Patient with concurrent bradycardia with some chronotropic response, rate initially low in the 50s -Patient did have rebound tachycardia, and restarted BB, discontinued diltiazem. -tolerating 37.5 mg of metoprolol succinate BID--> change to 75mg po once daily on discharge-he will benefit from succinate at discharge given his chronic systolic CHF TTE: EF 40-45%, dilated LV, decreased right heart function, systolic and diastolic combined heart failure Orthostasis present since admission, however resolved on 06/21 -have restarted lasix po, but will HOLD lisinopril at discharge util seen by PCP and Cardiology (2) Urinary tract infection: Enterococcus faecalis UTI BCxs NGTD treating as systemic infection given presentation of hypotension, possibility of systemic infection continue IV AMpicillin through 06/24 (3) Syncope and collapse: Acute episode, no recurrence. 2/2 hypotension as above -No focal neuro defects on exam, CT head negative, did loss control of bladder during his syncopal episode but it does not appear that he had a postictal period orthostatic vitals improved on 06/21 (4) Acute kidney injury superimposed on CKD: Donation Worker back to normal after IVF hydration ,holding lasix and lisinopril With RV dysfunction but was likely hypovolemic on admission Restarted lasix for peripheral edema but HOLD lisnopril on dischrge as above f/u with PCP and Crdio (5) Diabetes mellitus type 2, controlled: requiring FAR LESS insulin here than at home, most recent A1C also ONLY 5.6% in 04/2022 On dischatge, reduce Tresiba to 10 units BID (down from 40 units bid), and reduce insulin aspartame to 10 units qac (from 20 units qac) follow closely as outpt (6) AF (atrial fibrillation): -permanent Afib rates bradycardic on admission and metoprolol and diltiazem held Toprol XL started as above and diltiazem permanently discontinued f/u with Cardiology remains on Coumadin INR 1.6 on day of discharge-has been on 3.5mg daily the last 4-5 days--> check INR at home on 06/23 and await instructions from his doctor that manages Coumadin (7) Interstitial lung disease: -Continue 3L HS -Continue home breathing treatments (8) Coronary atherosclerosis of [place] coronary vessel: nonobstructing (9) Diabetic peripheral neuropathy associated with type 2 diabetes mellitus: continue Lyrica (10) IPMN (intraductal papillary mucinous neoplasm): incidentally noted on CT abd/pel f/u imaging as outpt in 1 year (11) Heart failure with mid-range ejection fraction (HFmEF): as above, EF 40-45%, RV failure as well continue lasix, holding lisinopril due to GRACIE and hypotension on admission started Toprol XL here, dc diltiazem and metoprolol tartrate f/u with Cardiology as has been one year since last appt low sodium diet Plan Dispo-dc to home with home health Total Time Total Time Spent Total Time Spent (In Minutes): 45 min Discharge Plan Discharge Items Patient Disposition: Home - Home Health Services Reason For Visit: UNWITNESSED SYNCOPE Discharge Diagnosis: Syncope, hypotension Enterococcus UTI Condition on Discharge: Good Activity: Resume your previous activity Bathing Comment: Keep IV site dry Non-emergency contact: Primary Care Provider and Mlt Call non-emergency contact if: you have any medication questions, your symptoms worsen, you have a fever and your temperature is above 101 Follow-up/Referrals: Marco Velasco MD [Primary Care Provider] - (Follow up within 1-2 weeks.) Diet: Carb Consistent or DM2 and Low Sodium (2gm) Addtl Attending Provider Instructions: Please continue on the home IV Ampicillin antibiotic through 3:00 PM on 06/24/22. Due to your lower blood pressures when you came in, some of your medications have been changed. Your lisinopril remains on HOLD, and your diltiazem was STOPPED. Your metoprolol dose was changed to a long acting/once daily dosing called Toprol XL (metoprolol succinate) 75mg once daily. Please check your INR at home in 1 day and await instructions from your doctor as to what dosing of coumadin you need. Your INR on the day of discharge was 1.6. You have a cyst on your pancreas which will require a repeat scan of the abdomen in 1 year-your PCP can order this for you when the time comes. You should schedule a routine follow up with your Mlt, Dr. Naranjo, as it has been a year since your last visit and you do have heart failure. Your blood sugars were very well controlled in the hospital on a MUCH LOWER DOSE of insulin than what you were taking at home. Please change your dosing to Tresiba 10 units twice a day (down from 40 units twice a day) and insulin aspartame only 10 units which each meal (down from 20units). If your blood sugars start rising at home due to dietary changes, then please increase your insulin back up with the direction of your doctor. Pending Studies at Discharge: No Stand-Alone Forms: My [employer], Smoking Cessation Medications and DC Order Prescriptions: New metoprolol succinate 50 mg tablet extended release 24 hr 75 mg PO QAM Qty: 45 0RF Continued (DME) Oxygen Home Liters Per Minute See Rx Instructions .MEDSUPPLY Qty: 1 0RF Rx Instructions: 2 Liters per minute continuous (DME) Dexcom G6 Sensor Device See Rx Instructions .Route Qty: 3 11RF Rx Instructions: use for blood sugar checks (DME) Dexcom G6 Transmitter Device See Rx Instructions .Route Qty: 1 3RF Rx Instructions: use for blood sugars change out every 90 days furosemide 40 mg tablet 40 mg PO QAM Qty: 90 3RF Rx Instructions: takes 6 days per week; not on Sundays fenofibrate nanocrystallized 48 mg tablet 48 mg PO QDL Qty: 90 3RF warfarin 3 mg tablet 3 mg PO HS Qty: 90 3RF Protocol: Dose Management Condition: Wednesday Dose/Route: 3 mg Instruction: 1 x 3 mg tablet Condition: Wednesday Dose/Route: 3 mg Instruction: 1 x 3 mg tablet Condition: Wednesday Dose/Route: 1.5 mg Instruction: 0.5 x 3 mg tablets Condition: Wednesday Dose/Route: 3 mg Instruction: 1 x 3 mg tablet Condition: Dose/Route: 3 mg Instruction: 1 x 3 mg tablet Condition: Wednesday Dose/Route: 3 mg Instruction: 1 x 3 mg tablet Condition: Wednesday Dose/Route: 3 mg Instruction: 1 x 3 mg tablet Protocol Text: Adjustment Start Date: Wednesday06/01/22 INR Value: 2.2 INR Date: 06/01/22 Recheck Date: 06/04/22 ranolazine 1,000 mg tablet extended release 12 hr 1,000 mg PO Q12H Qty: 60 6RF rosuvastatin [Crestor] 20 mg tablet 20 mg PO QAM Qty: 90 3RF Arnuity Ellipta 50 mcg/actuation blister with device 1 inh INH QAM Qty: 90 3RF (DME) pen needle, diabetic [BD Reyna 2nd Gen Pen Needle] 32 gauge x 5/32" needle See Rx Instructions .Route Qty: 200 8RF Rx Instructions: use for insulin injection up to six times daily pregabalin 100 mg capsule 100 mg PO TID Qty: 270 3RF tamsulosin 0.4 mg capsule 0.4 mg PO DAILY multivitamin [Daily Multi-Vitamin] Tablet 1 tab PO QAM ascorbic acid (vitamin C) 1,000 mg capsule 1 g PO DAILY Qty: 90 0RF albuterol sulfate 90 mcg/actuation HFA aerosol inhaler 1 - 2 puff inhalation Q4H PRN (Reason: shortness of breath) Qty: 18 3RF cholecalciferol (vitamin D3) 1,000 unit (25 mcg) tablet 1,000 units PO QDL cyanocobalamin (vitamin B-12) 100 mcg tablet 1,000 mcg PO Q2D docusate sodium 100 mg capsule 200 mg PO DAILY calcium carbonate [Calcium 600] 600 mg calcium (1,500 mg) tablet 600 mg PO DAILY cranberry 400 mg capsule 400 mg PO DAILY Rx Instructions: administer with a meal nitroglycerin 0.3 mg tablet, sublingual 0.3 mg sublingual Q5M PRN (Reason: chest pain) Qty: 10 0RF Rx Instructions: do not exceed 3 doses per episode omega 3-xhf-mmw-fish oil [Fish Oil] 1,000 mg (120 mg-180 mg) Capsule 1 cap PO QAM Changed insulin aspart U-100 100 unit/mL (3 mL) insulin pen See Rx Instructions .ROUTE .COMPLEX Qty: 15 3RF Dose Instruction: INJECT 20 UNITS (0.2MLS) SUBCUTANEOUSLY (UNDER THE SKIN) THREE TIMES DAILY WITH MEALS Rx Instructions: INJECT 10 UNITS SUBCUTANEOUSLY (UNDER THE SKIN) THREE TIMES DAILY WITH MEALS insulin degludec [Tresiba FlexTouch U-200] 200 unit/mL (3 mL) insulin pen 10 unit subcut BID Qty: 9 6RF Discontinued diltiazem HCl 180 mg capsule,extended release 24hr 180 mg PO BID 90 Days Qty: 180 3RF metoprolol tartrate 25 mg tablet 25 mg PO BID Qty: 180 3RF lisinopril 5 mg Tablet 5 mg PO DAILY Discharge Orders: Discharge Order- CHF (Routine); Ordered 06/22/22 Ordered By: Jenae Manrique Admission Data Admit Date/Time: 06/15/22 13:36 Attending Provider: Jenae Manrique Admit Provider: Kal Banda Primary Care Provider: Marco Velasco Other Providers: Kal Banda ; Miquel Bro ; Roni Worthington ; [facility] Coding Level of Care Code 31239 INP/OBS DISCH >30 MIN Diagnoses Acute hypotension I95.9 Urinary tract infection N39.0 Syncope and collapse R55 Acute kidney injury superimposed on CKD N17.9; N18.9 Diabetes mellitus type 2, controlled E11.9 AF (atrial fibrillation) I48.91 Interstitial lung disease J84.9 Coronary atherosclerosis of [place] coronary vessel I25.10 [place] vs. transplanted heart: [place] heart Associated angina: without angina Diabetic peripheral neuropathy associated with type 2 diabetes mellitus E11.42 IPMN (intraductal papillary mucinous neoplasm) D49.0 Heart failure with mid-range ejection fraction (HFmEF) I50.22
== END 2022-06-22 15:17 | disposition home health service (06) | DRG 872 ==
LOC: ED 09:45 → SUATTDRO 13:36 → 1E 13:36 → 2S 06-16 18:45

== ENCOUNTER 2022-12-15 16:03 | Inpatient (IN) ==
--- NOTE | 2022-12-15 16:16 | ED Triage Note ---
Date of Service December 15, 2022 History of Present Illness This patient was briefly evaluated while in triage. An abbreviated physical exam was performed. This patient is a 72-year-old Male who presents to the ED for evaluation of a productive cough and shortness of breath. Symptoms started a few days ago. Patient reports radiating from his stomach to the center of his chest when he does cough. Patient wears oxygen at nighttime. Patient was positive for COVID 2 weeks ago. The patient's entire family has also recently been sick. Physical Exam CONSTITUTIONAL: Healthy and well nourished. Patient does not appear toxic. HEENT: Normocephalic, atraumatic. No conjunctival injection or scleral icterus. RESPIRATORY: Patient has expiratory rhonchi and wheezing. CARDIOVASCULAR: Regular rate and rhythm with no murmurs, rubs or gallops. GASTROINTESTINAL: Bowel sounds present in all quadrants. MUSCULOSKELETAL: Full range of motion of all joints without discomfort. INTEGUMENTARY: No rash or other significant dermatologic conditions noted. HEMATOLOGIC: No ecchymosis or petechiae. PSYCHIATRIC: Positive affect. NEUROLOGIC: Initial orders for labs and / or imaging were placed and patient was placed in the waiting area until a bed is available. Please see further documentation for the full ED course.
--- NOTE | 2022-12-15 16:50 | XRay Report ---
TWO VIEW CHEST CLINICAL HISTORY: Atypical chest pain. Cough and dyspnea. FINDINGS: PA and lateral chest radiographs are compared to study performed earlier the same day 12/15. There is evidence of previous cardiac valve surgery. The heart is enlarged noting atherosclero tic calcification of the thoracic aorta. There is pulmonary vascular congestion. Asymmetric bilateral airspace opacities are similar to previous. This is greatest in the right upper lobe. No large pleur al effusion or pneumothorax is seen. The skeletal structures are osteopenic. The bony thorax appears intact. Surgical anchors are noted in the right humeral head. IMPRESSION: 1. Cardiomegaly with pulmonary vascular congestion. 2. There are asymmetric bilateral airspace opacities, greatest in the right upper lobe. This could re present mild pulmonary edema. Correlate clinically for evidence of a superimposed infectious/inflamma tory pneumonitis. Radiographic follow-up to resolution is recommended. ACT 112: Negative or not required by law. Electronically signed by: Bharathi Whyte M.D. 12/15/2022 4:48 PM
[2022-12-15 16:57] LABS: Basophils # (auto) 0.01 K/uL (0.00-0.20); Basophils % (auto) 0.1 %; Eosinophils # (auto) 0.08 K/uL (0.00-0.50); Eosinophils % (auto) 0.7 %; Hematocrit (blood only) 41.9 % (42.0-52.0); Hemoglobin 14.3 g/dl (14.0-18.0); Immature Granulocytes # (auto) 0.04 K/uL (0.01-0.20); Immature Granulocytes % (auto) 0.3 %; Lymphocytes # (auto) 1.04 K/uL (1.20-3.40); Lymphocytes % (auto) 8.8 %; Mean Corpuscular Hemoglobin 31.8 pg (25.0-34.0); Mean Corpuscular Hgb Conc 34.1 g/dL (32.0-36.0); Mean Corpuscular Volume 93.1 fL (80.0-100.0); Mean Platelet Volume 10.3 fL (9.4-12.4); Monocytes # (auto) 1.61 K/uL (0.11-0.59); Monocytes % (auto) 13.6 %; Neutrophils # (auto) 9.08 K/uL (1.40-6.50); Neutrophils % (auto) 76.5 %; Platelet Count 287 K/uL (130-400); RDW Coefficient of Variation 14.6 % (11.5-14.5); RDW Standard Deviation 49.7 fL (36.4-46.3); White Blood Count 11.86 K/ul (4.8-10.8)
[2022-12-15 17:13] LABS: Albumin Globulin Ratio 1.4 (0.9-2); Albumin Level 4.6 gm/dl (3.4-5.0); BUN Creatinine Ratio 14.6 (10-20); Bilirubin,Total 1.7 mg/dl (0.2-1.0); Calcium 9.9 mg/dl (8.6-10.3); Creatinine Clr Calc Pharmacy 43.3 ml/min; Est GFR (African American) 43.2 ml/min; Est GFR (Non-African American) 37.3 ml/min; Globulin 3.4 gm/dl (2.5-4.0)
--- NOTE | 2022-12-15 17:14 | Electrocardiogram Report ---
Test Reason : Blood Pressure : / mmHG Vent. Rate : 095 BPM Atrial Rate : 000 BPM P-R Int : 000 ms QRS Dur : 112 ms QT Int : 372 ms P-R-T Axes : 000 156 070 degrees QTc Int : 467 ms Atrial fibrillation Right axis deviation Nonspecific ST abnormality Abnormal ECG When compared with ECG of 15-JUN-2022 09:52, Vent. rate has increased BY 34 BPM Confirmed by Elpidio Madrigal ([id number]) on 12/15/2022 5:14:24 PM Referred By: Confirmed By:Catarino Madrigal
[2022-12-15 17:19] LABS: Troponin I High Sensitivity 10.1 pg/ml (0-20)
[2022-12-15 17:23] LABS: INR 1.4 (0.9-1.1); Partial Thromboplastin Ratio 1.2; Partial Thromboplastin Time 34.5 Seconds (21.0-31.0); Prothrombin Time 15.3 Seconds (9.0-12.0)
[2022-12-15 17:37] LABS: Adenovirus PCR Not Detected (NotDetected); Bordetella parapertussis PCR Not Detected (NotDetected); Bordetella pertussis PCR Not Detected (NotDetected); Chlamydia pneumoniae PCR Not Detected (NotDetected); Coronavirus 229E PCR Not Detected (NotDetected); Coronavirus HKU1 PCR Not Detected (NotDetected); Coronavirus NL63 PCR Not Detected (NotDetected); Coronavirus OC43PCR Not Detected (NotDetected); Human Metapneumovirus PCR Not Detected (NotDetected); Influenza A PCR Not Detected (NotDetected); Influenza B PCR Not Detected (NotDetected); Mycoplasma pneumoniae PCR Not Detected (NotDetected); Parainfluenza Virus 1 PCR Not Detected (NotDetected); Parainfluenza Virus 2 PCR Not Detected (NotDetected); Parainfluenza Virus 3 PCR Not Detected (NotDetected); Parainfluenza Virus 4 PCR Not Detected (NotDetected); Respiratory Syncytial VirusPCR Not Detected (NotDetected); Rhinovirus/Enterovirus PCR Not Detected (NotDetected)
[2022-12-15 17:48] LABS: Coronavirus CoV-2 (COVID19)PCR DETECTED (NotDetected)
--- NOTE | 2022-12-15 18:37 | Emergency Department Note ---
Impression & Plan Pneumonia, COPD (chronic obstructive pulmonary disease) ED Provider Note NAME: MARISEL ZAVALA AGE: 72 SEX: M : 1950 ARRIVES VIA: Walk-In INFORMANT: Patient, ED PROVIDER(S): Laisha Huynh MD CHIEF COMPLAINT: Shortness of breath, cough HPI: This is a 70-year-old male with history of heart failure, type 2 diabetes, pulm hypertension, interstitial l lung disease presenting for shortness of janeth ath and cough for patient use COVID-positive 2 weeks ago. Since then he has recovered but over the past 2 days he has noticed a very aggressive and significant decline. He states he is having trouble walking more than a few feet. He feels more short of breath. He does wear oxygen at night only via CPAP and not during the day. However during the past 2 days he has noticed oxygen requirements during the day. He has a cough with sputum production. He notes no fevers, chills, nausea, vomiting or diarrhea. Non-smoker. ROS: See above HPI for pertinent positives & negatives. A total of 10 systems reviewed and were otherwise negative. PAST MEDICAL HISTORY: See Below PAST SURGICAL HISTORY: See Below FAMILY HISTORY: See Below SOCIAL HISTORY: See Below HOME MEDICATIONS: See Below ALLERGIES: See Below VITALS: See Below PHYSICAL EXAMINATION: General: resting comfortably in no acute distress Head: Normocephalic and atraumatic Eyes: Normal inspection, extraocular muscles intact, no conjunctival pallor Ear, nose, throat: Normal external exam Neck: Normal range of motion Respiratory: Wheezing in all lung field, cough Cardiovascular: RRR without murmur appreciated GI: soft, nontender, no guarding or rebound Extremities: pulses intact with good cap refills, no LE pitting edema or calf tenderness Neuro: The patient awake and alert, appropriately conversive,no focal decifits Skin: Warm, dry, and intact MEDICAL DECISION MAKING: This is a 72-year-old male with history of heart failure, diabetes, pulm hypertension, interstitial lung disease presenting for shortness of breath, cough. Patient does positive COVID-19, likely residual from 2 weeks ago. Otherwise patient has wheezing in all lung dorsey, history of interstitial lung disease. His inhalers not working at this time. We will give albuterol here, steroids and reassess. Concern for superimposed bacterial pneumonia. Patient evaluated and is hypoxic, and has potential for significant deterioration. He is having increased respiratory effort, moderate wheezing. Will increase oxygen at this time. Patient chest x-ray independently interpreted by me showing cardiomegaly, pulm vascular congestion with hazy opacity concerning for bilateral pneumonia. Will give antibiotics at this time, albuterol treatments and admission. Will give steroids as well for possible COPD exacerbation. Triage Nursing notes reviewed. Prior medical records reviewed Vital Signs: reviewed and remarkable for no significant abnormalities Differential diagnosis: Pneumonia, CHF, COPD ER treatment provided: See below Diagnostics interpreted by me: ECG: ECG independently interpreted by me with atrial fibrillation, ventricular rate 95, normal QRS, normal QTc, no ST segment elevations consistent with STEMI criteria Cardiac Monitoring: An order was placed for continuous cardiac monitoring. The monitor shows a rate of 97 with sinus rhythm. Laboratory studies: As stated above and show below. Imaging studies: See below. Radiographic imaging was reviewed by myself Consultation(s): None Critical Care Note: I have personally spent 40 minutes of critical care time in the direct management of this patient. This includes bedside care, interpretation of diagnostic studies, and testing, discussion with consultants, patient, and family members, and other required patient management activities. This 40 minutes is in excess of all separately billable procedures. Past Med/Surg History Medical History (Updated 12/17/22 @ 00:15 by Laisha Huynh MD) Abdominal aortic aneurysm dissection "infrarenal aortic dissection extending into right common iliac and right proximal mid external iliac arteries": Annual surveillance (stable), monitored by [facility] vascular surgery Acute UTI Atrial fibrillation 2020 [facility] Bilateral renal cysts BPH with obstruction/lower urinary tract symptoms Bronchospasm with bronchitis, acute CKD stage 3 due to type 2 diabetes mellitus follows with [facility] Baseline creatinine 1.7-2.0 per nephrology notes Complex sleep apnea syndrome ASV machine with 2L supplemental oxygen nightly-compliant, follows with [facility] Congestive heart failure EF 50-55% 09/2020 echo Coronary atherosclerosis of [place] coronary vessel Severe 80-90% apical LAD disease. Moderate non-obstructive proximal-mid LAD (FFR 0.83). Mild-moderate multivessel disease- 30-40% proximal OM1, mid circumflex, mid RCA 10/12/18 cath: Distal LAD disease is low risk involving small vessel at the apex. Recommend trial of additional antianginal therapy, start Imdur. If persistent symptoms could consider POBA +/- stent to LAD. Diabetic nephropathy associated with type 2 diabetes mellitus Diabetic polyneuropathy B/L LE Dyslipidemia Encounter for pre-operative examination Gastroparesis Heart failure with mid-range ejection fraction (HFmEF) History of anemia History of blood transfusion during mitral valve repair per pt Hypertension controlled, stable per pt Interstitial lung disease monitoring per [facility] IPMN (intraductal papillary mucinous neoplasm) Lumbar back pain Pulmonary edema Pulmonary hypertension Moderate 09/2020 echo, "suspected secondary to elevated end-diastolic pressure, obesity, restrictive lung disease, hypoxemia and sleep disordered breathing: Would not recommend consideration for any pulmonary vasodilators at this point" follows with [facility]; Right heart cath 07/11/21: Normal left and right-sided filling pressures. Normal pulmonary artery pressure. Restrictive lung disease Stroke 2018, embolic, 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 CVA post cardiac catheterization, mild residual aphasia Syncope and collapse Surgical History History of cardiac cath no stents History of colonoscopy History of cystoscopy Left Ureteronephroscopy 08/24/2019: Grade 3 view, MAC#3.0, ETT#8.0. No issues per anesthesia postop progress note. History of mitral valve replacement 2007, [facility] History of shoulder surgery RT/LEFT History of surgical removal of pilonidal cyst History of tooth extraction History of total left knee replacement Family History Mother Colon cancer Diabetes Grandmother Multiple sclerosis Father Diabetes Coronary heart disease Myocardial infarction Grandfather Stroke Sister Diabetes Hypertension Brother Diabetes Hypertension Son Depression Hypertension Other No family history of adverse response to anesthesia Denies family history of Ovarian cancer Prostate cancer Breast cancer Social History Smoking Status: Never smoker Second Hand Exposure: No; Do You Dip or Chew Tobacco: No; Hx Alcohol Use: No Hx Substance Use: No Preferred Language: [place]an Communication Ability: Effective Visual Impairment: No Limitations Hearing Ability: Normal Handbag Operator Required: No Beliefs That Will Affect Care: None marital status: Current Living Situation: Spouse Current Living Situation Comment: live with and grown children current occupational status: retired current occupation: Former [employer] How many Children do You have: 2 Feels Safe at Home: Yes Childhood Exposure to Second-Hand Smoke: No Dental Care, Regularly: No Physical Activity Frequency: Does not Exercise Seatbelt Use: always Sunscreen Use: No Assistive Devices: Cane, Oxygen - Continuous and Walker Allergies Allergies Allergy/AdvReac Type Severity Reaction Status Date / Time dulaglutide [From Trulicity] AdvReac Intermediate Diarrhea , Verified 12/15/22 19:35 nausea Home Meds Home Medications Medication Instructions Recorded Confirmed cholecalciferol (vitamin D3) 25 1,000 units PO QDL 10/04/18 12/15/22 mcg (1,000 unit) tablet multivitamin (Daily Multi-Vitamin 1 tab PO QAM 03/15/20 12/15/22 tablet) omega 2-cou-okb-fish oil 1,000 mg 1 cap PO QAM 06/10/21 12/15/22 (120 mg-180 mg) capsule (Fish Oil) calcium carbonate 600 mg calcium 600 mg PO DAILY 06/09/22 12/15/22 (1,500 mg) tablet (Calcium) cranberry 400 mg capsule 400 mg PO DAILY 06/09/22 12/15/22 cyanocobalamin (vitamin B-12) 100 1,000 mcg PO Q2D 06/09/22 12/15/22 mcg tablet docusate sodium 100 mg capsule 200 mg PO DAILY 06/09/22 12/15/22 insulin degludec 200 unit/mL (3 30 unit subcut HS 07/01/22 12/15/22 mL) subcutaneous pen (Tresiba FlexTouch U-200 insulin) warfarin 3 mg tablet 0 mg PO DIRECTED 12/15/22 12/15/22 Previous Rx's Medication Instructions Recorded Oxygen Home #1 ea 08/27/21 blood-glucose sensor (Dexcom G6 #3 ea 09/04/21 Sensor device) blood-glucose transmitter (Dexcom #1 ea 09/04/21 G6 Transmitter device) rosuvastatin 20 mg tablet (Crestor) 20 mg PO QAM #90 tabs 03/11/22 fluticasone furoate 50 1 inh inhalation QAM #90 ea 03/20/22 mcg/actuation blister powder for inhalation (Arnuity Ellipta) ascorbic acid (vitamin C) 1,000 mg 1 g PO DAILY #90 caps 03/24/22 capsule pen needle, diabetic 32 gauge x #200 ea 04/14/2232" (BD Reyna 2nd Gen Pen Needle) albuterol sulfate 90 mcg/actuation 1 - 2 puff inhalation Q4H PRN 06/04/22 aerosol inhaler shortness of breath #18 grams pregabalin 100 mg capsule 100 mg PO TID #270 caps 06/08/22 nitroglycerin 0.3 mg sublingual 0.3 mg sublingual Q5M PRN chest 06/09/22 tablet pain #10 tabs metoprolol succinate 50 mg 75 mg PO DAILY #45 tabs 08/07/22 tablet,extended release 24 hr ranolazine 1,000 mg 1,000 mg PO Q12H #180 tabs 08/14/22 tablet,extended release,12 hr furosemide 40 mg tablet 40 mg PO QAM #90 tabs 09/07/22 fenofibrate nanocrystallized 48 mg 48 mg PO QDL #90 tabs 10/21/22 tablet Novolog FlexPen U-100 Insulin 100 10 - 20 unit (0.1 - 0.2 mL) subcut 11/26/22 unit/mL (3 mL) subcutaneous TID #15 mL (insulin aspart U-100) tamsulosin 0.4 mg capsule 0.4 mg PO DAILY #30 caps 12/01/22 Results & Data (ED) Vital Signs Vital Signs - 24 hr 12/15/22 16:13 12/15/22 16:17 12/15/22 16:17 Temperature 36.7 C Temperature Source Skin Pulse Rate 98 H Pulse Rhythm Regular Pulse Strength Normal Respiratory Rate 24 Respiratory Effort / Characteristics Non-Labored Spontaneous Spontaneous Short of Breath SOB on Exertion Respiratory Depth Normal Respiratory Pattern Regular Tachypnea Blood Pressure 128/76 Blood Pressure Mean 93 Pulse Oximetry 86 L Oxygen Delivery Method Room Air Room Air Room Air Oxygen Flow Rate Sepsis Recent Fever Within 48 Hours No Sepsis New/Unexplained Change in Mental Status N/A Sepsis Action Taken by Nursing No Action Required 12/15/22 16:36 Temperature Temperature Source Pulse Rate 96 H Pulse Rhythm Regular Pulse Strength Respiratory Rate 26 H Respiratory Effort / Characteristics Respiratory Depth Respiratory Pattern Blood Pressure Blood Pressure Mean Pulse Oximetry 96 Oxygen Delivery Method Nasal Cannula Oxygen Flow Rate 2 Sepsis Recent Fever Within 48 Hours Sepsis New/Unexplained Change in Mental Status Sepsis Action Taken by Nursing Laboratory Data 12/15/22 16:30 12/15/22 16:20 Lab Results 12/15/22 12/15/22 12/15/22 Range/Units 16:20 16:20 16:20 WBC (4.8-10.8) K/ul RBC (4.70-6.10) M/uL Hgb (14.0-18.0) g/dl Hct (42.0-52.0) % MCV (80.0-100.0) fL MCH (25.0-34.0) pg MCHC (32.0-36.0) g/dL RDW Std Deviation (36.4-46.3) fL RDW Coeff of Romulo (11.5-14.5) % Plt Count (130-400) K/uL MPV (9.4-12.4) fL Immature Gran % (Auto) % Neut % (Auto) % Lymph % (Auto) % [place] % (Auto) % Eos % (Auto) % Baso % (Auto) % Neut # (Auto) (1.40-6.50) K/uL Lymph # (Auto) (1.20-3.40) K/uL [place] # (Auto) (0.11-0.59) K/uL Eos # (Auto) (0.00-0.50) K/uL Baso # (Auto) (0.00-0.20) K/uL Immature Gran # (Auto) (0.01-0.20) K/uL PT 15.3 H (9.0-12.0) Seconds INR 1.4 H (0.9-1.1) APTT 34.5 H (21.0-31.0) Seconds PTT Ratio 1.2 Sodium 135 L (136-145) mmol/L Potassium 4.0 (3.5-5.1) mmol/L Chloride 96 L (98-107) mmol/L Carbon Dioxide 28 (21-32) mmol/L Anion Gap 11 (3-11) BUN 26 H (6-23) mg/dl Creatinine 1.78 H (0.6-1.4) mg/dl Est Cr Clr Drug Dosing 43.3 ml/min Est GFR ( Amer) 43.2 ml/min Est GFR (Non-Af Amer) 37.3 ml/min BUN/Creatinine Ratio 14.6 (10-20) Glucose 165 H (70-99(Fasting)) mg/dl Calcium 9.9 (8.6-10.3) mg/dl Total Bilirubin 1.7 H (0.2-1.0) mg/dl AST 15 (13-39) U/L ALT 11 (7-52) U/L Alkaline Phosphatase 57 (34-104) U/L Troponin I High Sens 10.1 (0-20) pg/ml B-Natriuretic Peptide 186 H (0-100) pg/ml Total Protein 8.0 (6.0-8.3) gm/dl Albumin 4.6 (3.4-5.0) gm/dl Globulin 3.4 (2.5-4.0) gm/dl Albumin/Globulin Ratio 1.4 (0.9-2) Procalcitonin (0-0.5) ng/ml Adenovirus (PCR) (NotDetected) B. pertussis DNA (PCR) (NotDetected) B.parapertussis DNA PCR (NotDetected) C. pneumoniae DNA (PCR) (NotDetected) Coronavirus OC43 (PCR) (NotDetected) Coronavirus HKU1 (PCR) (NotDetected) Coronavirus 229E (PCR) (NotDetected) SARS-CoV-2 (PCR) (NotDetected) Coronavirus NL63 (PCR) (NotDetected) Human Metapneumovir PCR (NotDetected) Influenza Type A (PCR) (NotDetected) Influenza Type B (PCR) (NotDetected) M. pneumoniae (PCR) (NotDetected) Parainfluenza 1 (PCR) (NotDetected) Parainfluenza 2 (PCR) (NotDetected) Parainfluenza 3 (PCR) (NotDetected) Parainfluenza 4 (PCR) (NotDetected) RSV (PCR) (NotDetected) Entero/Rhino (PCR) (NotDetected) 12/15/22 12/15/22 12/15/22 Range/Units 16:21 16:30 16:32 WBC 11.86 H (4.8-10.8) K/ul RBC 4.50 L (4.70-6.10) M/uL Hgb 14.3 (14.0-18.0) g/dl Hct 41.9 L (42.0-52.0) % MCV 93.1 (80.0-100.0) fL MCH 31.8 (25.0-34.0) pg MCHC 34.1 (32.0-36.0) g/dL RDW Std Deviation 49.7 H (36.4-46.3) fL RDW Coeff of Romulo 14.6 H (11.5-14.5) % Plt Count 287 (130-400) K/uL MPV 10.3 (9.4-12.4) fL Immature Gran % (Auto) 0.3 % Neut % (Auto) 76.5 % Lymph % (Auto) 8.8 % [place] % (Auto) 13.6 % Eos % (Auto) 0.7 % Baso % (Auto) 0.1 % Neut # (Auto) 9.08 H (1.40-6.50) K/uL Lymph # (Auto) 1.04 L (1.20-3.40) K/uL [place] # (Auto) 1.61 H (0.11-0.59) K/uL Eos # (Auto) 0.08 (0.00-0.50) K/uL Baso # (Auto) 0.01 (0.00-0.20) K/uL Immature Gran # (Auto) 0.04 (0.01-0.20) K/uL PT (9.0-12.0) Seconds INR (0.9-1.1) APTT (21.0-31.0) Seconds PTT Ratio Sodium (136-145) mmol/L Potassium (3.5-5.1) mmol/L Chloride (98-107) mmol/L Carbon Dioxide (21-32) mmol/L Anion Gap (3-11) BUN (6-23) mg/dl Creatinine (0.6-1.4) mg/dl Est Cr Clr Drug Dosing ml/min Est GFR ( Amer) ml/min Est GFR (Non-Af Amer) ml/min BUN/Creatinine Ratio (10-20) Glucose (70-99(Fasting)) mg/dl Calcium (8.6-10.3) mg/dl Total Bilirubin (0.2-1.0) mg/dl AST (13-39) U/L ALT (7-52) U/L Alkaline Phosphatase (34-104) U/L Troponin I High Sens (0-20) pg/ml B-Natriuretic Peptide (0-100) pg/ml Total Protein (6.0-8.3) gm/dl Albumin (3.4-5.0) gm/dl Globulin (2.5-4.0) gm/dl Albumin/Globulin Ratio (0.9-2) Procalcitonin 0.32 (0-0.5) ng/ml Adenovirus (PCR) Not Detected (NotDetected) B. pertussis DNA (PCR) Not Detected (NotDetected) B.parapertussis DNA PCR Not Detected (NotDetected) C. pneumoniae DNA (PCR) Not Detected (NotDetected) Coronavirus OC43 (PCR) Not Detected (NotDetected) Coronavirus HKU1 (PCR) Not Detected (NotDetected) Coronavirus 229E (PCR) Not Detected (NotDetected) SARS-CoV-2 (PCR) DETECTED A* (NotDetected) Coronavirus NL63 (PCR) Not Detected (NotDetected) Human Metapneumovir PCR Not Detected (NotDetected) Influenza Type A (PCR) Not Detected (NotDetected) Influenza Type B (PCR) Not Detected (NotDetected) M. pneumoniae (PCR) Not Detected (NotDetected) Parainfluenza 1 (PCR) Not Detected (NotDetected) Parainfluenza 2 (PCR) Not Detected (NotDetected) Parainfluenza 3 (PCR) Not Detected (NotDetected) Parainfluenza 4 (PCR) Not Detected (NotDetected) RSV (PCR) Not Detected (NotDetected) Entero/Rhino (PCR) Not Detected (NotDetected) Administered Medications Albuterol (Albut/Ipratrop 3mg/0.5mg Neb 3 Ml Vial) 3 ml NEB Q4R [facility]; Protocol Stop: 01/15/23 18:59 Last Admin: 12/16/22 22:15 Dose: 3 ml Documented By: Admin: 12/16/22 19:39 Dose: 3 ml Documented By: BWT Doxycycline Hyclate (Doxycycline Hyclate 100 Mg Cap) 100 mg PO BID [facility] Stop: 12/23/22 20:59 Last Admin: 12/16/22 20:48 Dose: 100 mg Documented By: DEEPTHI Fenofibrate (Fenofibrate Nanocrystallized 48 Mg Tablet) 48 mg PO QDL [facility] Stop: 01/15/23 11:29 Last Admin: 12/16/22 10:28 Dose: 48 mg Documented By: JUANA Methylprednisolone 40 mg/ (Syringe) 0.64 mls @ 1.5 mls/min IV BID [facility] Stop: 01/15/23 20:59 Last Admin: 12/16/22 20:46 Dose: 1.5 mls/min Documented By: DEEPTHI Cefepime HCl 2,000 mg/ Syringe 20 mls @ 5 mls/min IV Q12H [facility]; Protocol Stop: 12/23/22 09:59 Last Admin: 12/16/22 23:32 Dose: 5 mls/min Documented By: Admin: 12/16/22 10:28 Dose: 5 mls/min Documented By: JUANA Insulin Aspart (Insulin Aspart Per Unit Charge) 0 units SC ACHS [facility] Stop: 01/14/23 20:59 Last Admin: 12/16/22 20:49 Dose: 9 units Documented By: DEEPTHI Co-signed By: VIDHYA Admin: 12/16/22 17:17 Dose: 23 units Documented By: JUANA Co-signed By: DAVID Admin: 12/16/22 12:14 Dose: 18 units Documented By: JUANA Co-signed By: RACHEL Admin: 12/16/22 08:40 Dose: 12 units Documented By: JUANA Co-signed By: KATIA Admin: 12/16/22 01:56 Dose: 9 units Documented By: BERTHA Co-signed By: VERÓNICA Admin: 12/15/22 22:02 Dose: 8 units Documented By: REJI Co-signed By: AMY Insulin Glargine (Lantus Per Unit Charge) 30 units SQ BID [facility] Stop: 01/15/23 08:59 Last Admin: 12/16/22 20:49 Dose: 30 units Documented By: DEEPTHI Co-signed By: VIDHYA Admin: 12/16/22 08:40 Dose: 30 units Documented By: JUANA Co-signed By: KATIA Metoprolol Succinate (Metoprolol Succ 25mg Ext Rel Tab) 75 mg PO DAILY [facility] Stop: 01/15/23 08:59 Last Admin: 12/16/22 08:41 Dose: 75 mg Documented By: JUANA Pregabalin (Pregabalin 100 Mg Cap) 100 mg PO TID [facility] Stop: 01/14/23 20:59 Last Admin: 12/16/22 20:47 Dose: 100 mg Documented By: Admin: 12/16/22 15:12 Dose: 100 mg Documented By: Admin: 12/16/22 08:41 Dose: 100 mg Documented By: Admin: 12/15/22 22:24 Dose: 100 mg Documented By: JULITA Ranolazine (Ranolazine 500 Mg Er Tab) 1,000 mg PO Q12 [facility] Stop: 01/14/23 20:59 Last Admin: 12/16/22 20:47 Dose: 1,000 mg Documented By: Admin: 12/16/22 10:27 Dose: 1,000 mg Documented By: Admin: 12/15/22 22:24 Dose: 1,000 mg Documented By: JULITA Rosuvastatin Calcium (Rosuvastatin Calcium 20 Mg Tab) 20 mg PO QAM [facility] Stop: 01/15/23 08:59 Last Admin: 12/16/22 08:41 Dose: 20 mg Documented By: JUANA Tamsulosin HCl (Tamsulosin Hcl 0.4 Mg Cap) 0.4 mg PO DAILY [facility] Stop: 01/15/23 08:59 Last Admin: 12/16/22 08:41 Dose: 0.4 mg Documented By: JUANA Warfarin Sodium (Warfarin Sod 0.5 Mg Tab) 1.5 mg PO [id number]@1600 [facility] Stop: 01/15/23 15:59 Last Admin: 12/16/22 17:03 Dose: 1.5 mg Documented By: JUANA Discontinued Medications Albuterol (Albuterol 0.083% Nebu Soln 3 Ml Vial) 2.5 mg NEB NOW STA; Protocol Stop: 12/15/22 18:42 Last Admin: 12/15/22 18:59 Dose: 2.5 mg Documented By: REJI Albuterol (Albut/Ipratrop 3mg/0.5mg Neb 3 Ml Vial) 3 ml NEB QIDR [facility]; Protocol Stop: 01/15/23 20:59 Last Admin: 12/16/22 15:08 Dose: 3 ml Documented By: [facility] Admin: 12/16/22 11:16 Dose: 3 ml Documented By: [facility] Admin: 12/16/22 07:36 Dose: 3 ml Documented By: [facility] Albuterol (Albut/Ipratrop 3mg/0.5mg Neb 3 Ml Vial) Confirm Administered Dose 3 ml .ROUTE .STK-MED ONE Stop: 12/15/22 22:10 Last Admin: 12/15/22 22:13 Dose: 3 ml Documented By: CRYSTAL Furosemide (Furosemide 40 Mg/4 Ml Vial) 40 mg IV ONE ONE Stop: 12/16/22 18:01 Last Admin: 12/16/22 19:10 Dose: 40 mg Documented By: JUANA Ceftriaxone Sodium 2,000 mg/ (Dextrose) 50 mls @ 100 mls/hr IV NOW STA; Protocol Stop: 12/15/22 19:11 Last Infusion: 12/15/22 19:51 Dose: 0 mls/hr Documented By: Admin: 12/15/22 19:21 Dose: 100 mls/hr Documented By: MARU Doxycycline Hyclate 100 mg/ (Dextrose) 100 mls @ 50 mls/hr IV NOW STA Stop: 12/15/22 20:41 Last Infusion: 12/15/22 22:02 Dose: 0 mls/hr Documented By: Admin: 12/15/22 20:02 Dose: 50 mls/hr Documented By: REJI Doxycycline Hyclate 100 mg/ (Dextrose) 100 mls @ 50 mls/hr IV Q12 [facility] Stop: 12/16/22 19:59 Last Infusion: 12/16/22 10:46 Dose: 0 mls/hr Documented By: Admin: 12/16/22 08:42 Dose: 50 mls/hr Documented By: JUANA Methylprednisolone 40 mg/ (Syringe) 0.64 mls @ 1.5 mls/min IV TID [facility] Stop: 01/15/23 08:59 Last Admin: 12/16/22 08:41 Dose: 1.5 mls/min Documented By: JUANA Insulin Human Regular 10 units (/ Syringe) 10 mls @ 5 mls/min IV ONE ONE Stop: 12/16/22 12:16 Last Admin: 12/16/22 12:14 Dose: 5 mls/min Documented By: JUANA Co-signed By: RACHEL Insulin Glargine (Lantus Per Unit Charge) 30 units SQ HS [facility] Stop: 01/14/23 20:59 Last Admin: 12/15/22 22:01 Dose: 30 units Documented By: REJI Co-signed By: AMY Methylprednisolone (Methylprednisolone 125 Mg/2 Ml Vial) 125 mg IV NOW STA Stop: 12/15/22 18:42 Last Admin: 12/15/22 18:59 Dose: 125 mg Documented By: REJI Potassium Chloride (Potassium Chloride Crtab 20 Meq Tabcr) 40 meq PO NOW STA Stop: 12/16/22 17:55 Last Admin: 12/16/22 19:10 Dose: 40 meq Documented By: JUANA Warfarin Sodium (Warfarin Sod 4 Mg Tab) 4 mg PO ONE ONE Stop: 12/15/22 20:31 Last Admin: 12/15/22 22:02 Dose: 4 mg Documented By: REJI Warfarin Sodium (Warfarin Sod 0.5 Mg Tab) 0.5 mg PO ONE ONE Stop: 12/15/22 20:31 Last Admin: 12/15/22 22:02 Dose: 0.5 mg Documented By: REJI Imaging Data Radiologist's Impression: Chest X-Ray 12/15/22 16:17 TWO VIEW CHEST CLINICAL HISTORY: Atypical chest pain. Cough and dyspnea. FINDINGS: PA and lateral chest radiographs are compared to study performed earlier the same day 12/15/2022. There is evidence of previous cardiac valve surgery. The heart is enlarged noting atherosclerotic calcification of the th oracic aorta. There is pulmonary vascular congestion. Asymmetric bilateral airspace opacities are similar to previous. This is greatest in the right upper lobe. No large pleural effusion or pneumothorax is seen. The skeletal structures are osteopenic. The bony thorax appears intact. Surgical anchors are noted in the right humeral head. IMPRESSION: 1. Cardiomegaly with pulmonary vascular congestion. 2. There are asymmetric bilateral airspace opacities, greatest in the right upper lobe. This could represent mild pulmonary edema. Correlate clinically for evidence of a superimposed infectious/inflammatory pneumonitis. Radiographic follow-up to resolution is recommended. ACT 112: Negative or not required by law. Electronically signed by: Bharathi Whyte M.D. 12/15/2022 4:48 PM Discharge Plan Visit Data Chief Complaint: Shortness of Breath/Dyspnea Stated Complaint: SOB ED Provider: Huynh,Niketu J. Discharge Problem: Pneumonia, COPD (chronic obstructive pulmonary disease) Patient Disposition: Admitted As Inpatient Discharge Instructions Interventions: ED Discharge Assessment Last Done: 12/15/22 20:23
[2022-12-15] MEDS ORDERED: ALBUTEROL 0.083% NEBU SOLN 3 ML VIAL NEB STA (18:41)
[2022-12-15] MEDS ORDERED: methylPREDNISolone 125 MG/2 ML VIAL IV STA (18:41)
[2022-12-15] MEDS ORDERED: cefTRIAXone SODIUM 2,000 MG in DEXTROSE 5 % MINI-B 50 ML IV STA (18:42)
[2022-12-15] MEDS ORDERED: DOXYCYCLINE HYCLATE 100 MG in DEXTROSE 5% MINI-B 100 ML IV STA (18:42)
[2022-12-15] MEDS ORDERED: GLUCOSE 10 TAB/TUBE PO PRN (19:05)
[2022-12-15] MEDS ORDERED: GLUCOSE 40% GEL 15 GM TUBE PO PRN (19:05)
[2022-12-15] MEDS ORDERED: GLUCAGON FOR INJ 1 MG VIAL SQ PRN (19:05)
[2022-12-15] MEDS ORDERED: CARBOHYDRATES FOR HYPOGLYCEMIA PO PRN (19:05)
[2022-12-15] MEDS ORDERED: DEXTROSE 50% 50 ML SYRINGE IV PRN (19:05)
[2022-12-15] MEDS ORDERED: PHARMACY GLYCEMIC MGMT CONSULT PRN (19:06)
--- NOTE | 2022-12-15 19:14 | History & Physical Report ---
Date of Service December 15, 2022 Assessment & Plan (1) Acute respiratory failure with hypoxia: Plan: -Admit to the PCU on tele and pulse oximetry -Currently stable on 4L NC and without significant respiratory distress -Presented with 48 hours of productive cough with yellow-green sputum, increased SOB/JOLLY, and generalized weakness -Noted to be hypoxic at 85% on RA on arrival -At this time his presentation is likely multifactorial including superimposed bacterial pneumonia after recent covid 19 infection 2 weeks ago and exacerbation of his ILD -Patient has significant wheezing on exam, is euvolemic to dry, with leukocytosis and yellow-green sputum production -Do not think he is in a CHF exacerbation at this time, cardiac workup has been negative, do not think this is ACS -While patient is subtherapeutic today with INR of 1.4, he is hemodynamically stable, with HR WNL, and without chest discomfort. Low suspicion for PE at this time. >If patient were to become hemodynamically unstable, develop chest discomfort, and/or become tachycardic --> STAT CTA of the chest with PE protocol -S/P one dose of Ceftriaxone and Doxycycline in the ED, will continue with both for now -ABG obtained on admission shows stable pH with pCO2 WNL and pO2 of 145 (this was obtained while patient was on 15L non-rebreather while getting an albuterol treatment) >Will continue with prn O2 to keep SpO2 between 89-92% at this time >Can continue HS Bipap with typical home settings -S/P 125 mg IV Methylprednisolone in the ED, will continue with 40 mg IV TID tomorrow, can wean when he is stable -Will obtain a MRSA swab and sputum culture with gram stain; if MRSA sawb is positive with add Vancomycin -Incentive spirometry, flutter therapy, patient was instructed to use both -Will consult Pulmonology to follow as he follows with Dr. Gomez outpatient -Home warfarin fro DVT PPX -HH/DMII diet -AM CBC, BMP, Mag, PT/INR (2) Heart failure with mid-range ejection fraction (HFmEF): Plan: -Examines euvolemic-slightly dehydrated on exam -BNP not significantly elevated compared to previous results -For now will hold home PO Lasix to avoid dehydration, can resume tomorrow if he is stable and retaining fluid (3) AF (atrial fibrillation): Plan: -Stable -INR is subtherapeutic today at 1.4; patient confirms his goal when checking at home is 2.0-3.0 -Patient confirms he did not take his Warfarin dose today -Will give 4.5 mg PO now, monitor daily INR and adjust regimen as needed -Continue Metoprolol (4) Diabetes mellitus type 2, controlled: Plan: -Monitor BSG ACHS, goal is 110-160 while on steroids -Normally takes 30 units Degludec HS, will convert t0 20 units BID while on steroids -Start CF of 40 ACHS for now -DMII/HH diet -Pharmacy glycemic consult placed (5) Hypertension: Plan: -Stable -Can continue metoprolol -Can resume lasix when stable (6) Complex sleep apnea syndrome: Plan: -Will order HS Bipap per patient's home settings Plan The patient was discussed with Dr. Banda at the time of the admission History of Present Illness Chief Complaint: SOB, Cough, JOLLY Primary Care Provider: Marco Velasco MD Vito Babb is a 72-year-old male with a past medical history of type II DM, A-fib on warfarin, CKD, HTN, hyperlipidemia, CAD, ILD, and complex sleep apnea syndrome on HSASV with oxygen bleed 3 L/min who presented to the [facility] ED on 12/15 with complaints of cough, SOB, JOLLY at home over the past 48 hours. He reportedly tested positive for Covid 19 2 weeks ago but had mild symptoms and believed he had completely recovered. In the ED today he was noted to be hypoxic at 83% on RA but otherwise stable. Labs were significant for a leukocytosis of 11 with neutrophile predominance of 9, subtherapeutic INR of 1.4, Cr of 1.7 (at baseline per last Nephrology note), total bili of 1.7 with all other LFT's WNL, BNP of 186 (lower than previous draws), and full respiratory biofire positive for covid 19. Chest xray was read as "1. Cardiomegaly with pulmonary vascular congestion. 2. There are asymmetric bilateral airspace opacities, greatest in the right upper lobe. This could represent mild pulmonary edema. Correlate clinically for evidence of a superimposed infectious/inflammatory pneumonitis. Radiographic follow-up to resolution is recommended.". Prior to admission the patient was given a dose of Ceftriaxone, doxycycline, an albuterol treatment, and 125 mg IV methylprednisolone. At the time of the exam the patient sitting in bed in no acute distress with his sitting bedside, history was obtained from both. He confirms that he tested positive for covid 19 approximately 2 weeks ago. He had very mild symptoms including slight cough and congestion but was otherwise fine. Approximately 2 days ago he started to develop his current symptoms. He has been using his rescue inhaler at home without relief. He has been coughing up yellow-green sputum over this time and has been significantly SOB with exertion. He denies recent fever, chest pain, hemoptysis, abd pain, nausea, vomiting, diarrhea, dysuira, hematuria, melena, LE swelling, and recent trauma. We discussed code status, he is a full code and would want his to make medical decisions for him. Please refer to Dr. Banda's attestation for any changes to the treatment plan Allergies Allergy/AdvReac Type Severity Reaction Status Date / Time dulaglutide [From [facility]] AdvReac Intermediate Diarrhea , Verified 12/15/22 19:35 nausea Home Medications Medication Instructions Recorded Confirmed Type cholecalciferol (vitamin D3) 25 1,000 units PO QDL 10/04/18 12/15/22 History mcg (1,000 unit) tablet multivitamin (Daily Multi-Vitamin 1 tab PO QAM 03/15/20 12/15/22 History tablet) omega 8-tfw-fbb-fish oil 1,000 mg 1 cap PO QAM 06/10/21 12/15/22 History (120 mg-180 mg) capsule (Fish Oil) Oxygen Home #1 ea 08/27/21 12/15/22 Rx blood-glucose sensor (Dexcom G6 #3 ea 09/04/21 12/15/22 Rx Sensor device) blood-glucose transmitter (Dexcom #1 ea 09/04/21 12/15/22 Rx G6 Transmitter device) rosuvastatin 20 mg tablet (Crestor) 20 mg PO QAM #90 tabs 03/11/22 12/15/22 Rx fluticasone furoate 50 1 inh inhalation QAM #90 ea 03/20/22 12/15/22 Rx mcg/actuation blister powder for inhalation (Arnuity Ellipta) ascorbic acid (vitamin C) 1,000 mg 1 g PO DAILY #90 caps 03/24/22 12/15/22 Rx capsule pen needle, diabetic 32 gauge x #200 ea 04/14/22 12/15/22 Rx 5/32" (BD Reyna 2nd Gen Pen Needle) albuterol sulfate 90 mcg/actuation 1 - 2 puff inhalation Q4H PRN 06/04/22 12/15/22 Rx aerosol inhaler shortness of breath #18 grams pregabalin 100 mg capsule 100 mg PO TID #270 caps 06/08/22 12/15/22 Rx calcium carbonate 600 mg calcium 600 mg PO DAILY 06/09/22 12/15/22 History (1,500 mg) tablet (Calcium) cranberry 400 mg capsule 400 mg PO DAILY 06/09/22 12/15/22 History cyanocobalamin (vitamin B-12) 100 1,000 mcg PO Q2D 06/09/22 12/15/22 History mcg tablet docusate sodium 100 mg capsule 200 mg PO DAILY 06/09/22 12/15/22 History nitroglycerin 0.3 mg sublingual 0.3 mg sublingual Q5M PRN chest 06/09/22 12/15/22 Rx tablet pain #10 tabs insulin degludec 200 unit/mL (3 30 unit subcut HS 07/01/22 12/15/22 History mL) subcutaneous pen (Tresiba FlexTouch U-200 insulin) metoprolol succinate 50 mg 75 mg PO DAILY #45 tabs 08/07/22 12/15/22 Rx tablet,extended release 24 hr ranolazine 1,000 mg 1,000 mg PO Q12H #180 tabs 08/14/22 12/15/22 Rx tablet,extended release,12 hr furosemide 40 mg tablet 40 mg PO QAM #90 tabs 09/07/22 12/15/22 Rx fenofibrate nanocrystallized 48 mg 48 mg PO QDL #90 tabs 10/21/22 12/15/22 Rx tablet Novolog FlexPen U-100 Insulin 100 10 - 20 unit (0.1 - 0.2 mL) subcut 11/26/22 12/15/22 Rx unit/mL (3 mL) subcutaneous TID #15 mL (insulin aspart U-100) tamsulosin 0.4 mg capsule 0.4 mg PO DAILY #30 caps 10/17/23 10/31/23 Rx warfarin 3 mg tablet 0 mg PO DIRECTED 12/15/22 12/15/22 History Past Med/Surg History Medical History Abdominal aortic aneurysm dissection Acute UTI Atrial fibrillation Bilateral renal cysts BPH with obstruction/lower urinary tract symptoms CKD stage 3 due to type 2 diabetes mellitus Complex sleep apnea syndrome Congestive heart failure Coronary atherosclerosis of [place] coronary vessel Diabetic nephropathy associated with type 2 diabetes mellitus Diabetic polyneuropathy Dyslipidemia Encounter for pre-operative examination Gastroparesis Heart failure with mid-range ejection fraction (HFmEF) History of anemia History of blood transfusion Hypertension Interstitial lung disease IPMN (intraductal papillary mucinous neoplasm) Lumbar back pain Pulmonary hypertension Restrictive lung disease Stroke Syncope and collapse Surgical History History of cardiac cath History of colonoscopy History of cystoscopy History of mitral valve replacement History of shoulder surgery History of surgical removal of pilonidal cyst History of tooth extraction History of total left knee replacement Family History Mother Colon cancer Diabetes Grandmother Multiple sclerosis Father Diabetes Coronary heart disease Myocardial infarction Grandfather Stroke Sister Diabetes Hypertension Brother Diabetes Hypertension Son Depression Hypertension Other No family history of adverse response to anesthesia Denies family history of Ovarian cancer Prostate cancer Breast cancer Social History Smoking Status: Unknown if ever smoked Second Hand Exposure: No; Do You Dip or Chew Tobacco: No; Hx Alcohol Use: No Hx Substance Use: No Preferred Language: Syriac Communication Ability: Effective Visual Impairment: No Limitations Hearing Ability: Normal Rattle Leak And Squeak Repairer Required: No Beliefs That Will Affect Care: None marital status: Current Living Situation: Spouse Current Living Situation Comment: live with and grown children current occupational status: retired current occupation: Former [employer] How many Children do You have: 2 Feels Safe at Home: Yes Childhood Exposure to Second-Hand Smoke: No Dental Care, Regularly: No Physical Activity Frequency: Does not Exercise Seatbelt Use: always Sunscreen Use: No Assistive Devices: Cane and Walker Physical Exam Physical Exam: Physical Exam: General: In no acute distress, stated age, well-nourished, ill appearing but non-toxic HEENT: Normocephalic, atraumatic, no scleral icterus, pupils around round, symmetrical, and reactive to light, moist mucus membranes, negative JVD, trachea midline, no thyromegaly Chest/Pulm: No respiratory distress, symmetrical chest expansion, significant expiratory wheezing throughout with associated rhonchi in the BL lower lung dorsey Cardiac: irregular rate and rhythm, no murmurs noted Abdomen: Negative for ascites and bruising, normoactive bowel sounds, soft, non-tender to palpation throughout Musculoskeletal: Symmetrical and without signs of acute trauma, upper and lower extremities with full ROM, no atrophy, spasticity, or flaccidity Extremities: Radial, dorsalis pedis, and posterior tibial pulses are intact and symmetrical, no edema noted in the BL LE's Skin: Warm, dry, no rashes , lesions, or scars noted Neuro: Alert and oriented to person, place, month, year, and president, no focal defects, no tremors noted Psych: No acute distress, calm and cooperative during the exam Results & Data Results & Data Vital Signs (Past 12 Hours) Vital Signs Temp Pulse Pulse Resp BP BP Pulse Ox 12/15/22 18:45 84 26 H 116/68 98 12/15/22 18:44 89 12/15/22 16:36 96 H 26 H 96 12/15/22 16:17 12/15/22 16:17 12/15/22 16:13 36.7 C 98 H 24 128/76 86 L O2 Del Method O2 Flow Rate 12/15/22 18:45 Nasal Cannula 3 12/15/22 18:44 12/15/22 16:36 Nasal Cannula 2 12/15/22 16:17 Room Air 12/15/22 16:17 Room Air 12/15/22 16:13 Room Air Laboratory Results Abnormal lab results 12/15/22 12/15/22 12/15/22 Range/Units 16:20 16:20 16:20 WBC (4.8-10.8) K/ul RBC (4.70-6.10) M/uL Hct (42.0-52.0) % RDW Std Deviation (36.4-46.3) fL RDW Coeff of Romulo (11.5-14.5) % Neut # (Auto) (1.40-6.50) K/uL Lymph # (Auto) (1.20-3.40) K/uL [place] # (Auto) (0.11-0.59) K/uL PT 15.3 H (9.0-12.0) Seconds INR 1.4 H (0.9-1.1) APTT 34.5 H (21.0-31.0) Seconds ABG pO2 (80-95) mmHg ABG HCO3 (19-24) mmol/L ABG O2 Saturation (90-95) % ABG Base Excess (-9-1.8) mEq/L Sodium 135 L (136-145) mmol/L Chloride 96 L (98-107) mmol/L BUN 26 H (6-23) mg/dl Creatinine 1.78 H (0.6-1.4) mg/dl Glucose 165 H (70-99(Fasting)) mg/dl Total Bilirubin 1.7 H (0.2-1.0) mg/dl B-Natriuretic Peptide 186 H (0-100) pg/ml SARS-CoV-2 (PCR) (NotDetected) 12/15/22 12/15/22 12/15/22 Range/Units 16:30 16:32 19:52 WBC 11.86 H (4.8-10.8) K/ul RBC 4.50 L (4.70-6.10) M/uL Hct 41.9 L (42.0-52.0) % RDW Std Deviation 49.7 H (36.4-46.3) fL RDW Coeff of Romulo 14.6 H (11.5-14.5) % Neut # (Auto) 9.08 H (1.40-6.50) K/uL Lymph # (Auto) 1.04 L (1.20-3.40) K/uL [place] # (Auto) 1.61 H (0.11-0.59) K/uL PT (9.0-12.0) Seconds INR (0.9-1.1) APTT (21.0-31.0) Seconds ABG pO2 145 H (80-95) mmHg ABG HCO3 29 H (19-24) mmol/L ABG O2 Saturation 98.0 H (90-95) % ABG Base Excess 4.4 H (-9-1.8) mEq/L Sodium (136-145) mmol/L Chloride (98-107) mmol/L BUN (6-23) mg/dl Creatinine (0.6-1.4) mg/dl Glucose (70-99(Fasting)) mg/dl Total Bilirubin (0.2-1.0) mg/dl B-Natriuretic Peptide (0-100) pg/ml SARS-CoV-2 (PCR) DETECTED A* (NotDetected) Diagnostic Findings Chest X-Ray 12/15/22 16:17 TWO VIEW CHEST CLINICAL HISTORY: Atypical chest pain. Cough and dyspnea. FINDINGS: PA and lateral chest radiographs are compared to study performed earlier the same day 12/15/2022. There is evidence of previous cardiac valve surgery. The heart is enlarged noting atherosclerotic calcification of the thoracic aorta. There is pulmonary vascular congestion. Asymmetric bilateral airspace opacities are similar to previous. This is greatest in the right upper lobe. No large pleural effusion or pneumothorax is seen. The skeletal structures are osteopenic. The bony thorax appears intact. Surgical anchors are noted in the right humeral head. IMPRESSION: 1. Cardiomegaly with pulmonary vascular congestion. 2. There are asymmetric bilateral airspace opacities, greatest in the right upper lobe. This could represent mild pulmonary edema. Correlate clinically for evidence of a superimposed infectious/inflammatory pneumonitis. Radiographic follow-up to resolution is recommended. ACT 112: Negative or not required by law. Electronically signed by: Bharathi Whyte M.D. 12/15/2022 4:48 PM ECG Additional Comments: Atrial fibrillation Right axis deviation Nonspecific ST abnormality Abnormal ECG When compared with ECG of 15-JUN-2022 09:52, Vent. rate has increased BY 34 BPM Confirmed by Elpidio Madrigal ([id number]) on 12/15/2022 5:14:24 PM Code Status & VTE Plan Code Status Full code VTE Prophylaxis Plan VTE Prophylaxis will be ordered: Yes Supervising Physician Co-Signing Physician Notes Patient seen and examined, chart reviewed, case discussed with Delvin Short PA-C and I agree with the assessment and plan as above except as otherwise noted above. Vito is a 72yo M with a PMHx of ILD, recent COVID, T2DM, Afib, dCHF, CKD3, BPH, Complex CALOS, HTN, who presents with hypoxia, JOLLY, cough, and increased sputum production. Lungs are diffusely coarse, +exp wheezing on exam. BNP 186. trop normal. Pct wnl. Multifactorial, hx ILD and recent covid. Cannot exclude superimposed PNA, agree w/ tx rocephin on admit. MRSA nare pending. DDx includes CHF, BNP is mildly elevated and w/ sputum change and increased production rec tx as PNA. Wheezing improving after nebulizer and with steroids. Continue steroid wean. Lower suspicion for PE but INR subtherapeutic, will give warfarin + 50% additional tonight and trend INR. If clinicaly worsening obtain CTA-PE, will defer while treating other alternative dx. COntinue BiPAP qHS/PRN. Agree w/ assessment and management as above. PG Care Time/CCT Total # of Minutes Spent Total Time Spent with Patient: Total time spent is greater than 50% in coordination of care (as documented) at patient's floor/unit and/or counseling patient: C[place] [address] INT INP/OBS CARE 3/75MIN Patient Type Established Medical Decision Making High Complexity Diagnoses Acute respiratory failure with hypoxia J96.01 Heart failure with mid-range ejection fraction (HFmEF) I50.22 AF (atrial fibrillation) I48.91 Diabetes mellitus type 2, controlled E11.9 Hypertension I10 Hypertension type: essential hypertension Complex sleep apnea syndrome G47.31 (5) Hypertension Hypertension type: essential hypertension Qualified Code(s): I10 - Essential (primary) hypertension
[2022-12-15] MEDS ORDERED: WARFARIN SOD 3 MG TAB PO SCH (19:45)
[2022-12-15 20:02] LABS: Base Excess ABG 4.4 mEq/L (-9-1.8); HCO3 ABG 29 mmol/L (19-24); PCO2 ABG 43 mmHg (35-46); PO2 ABG 145 mmHg (80-95); pH ABG 7.44 (7.35-7.45)
[2022-12-15] MEDS ORDERED: WARFARIN SOD 0.5 MG TAB PO STA (20:05)
[2022-12-15 20:06] LABS: Allen Test Pos (Pos)
[2022-12-15] MEDS ORDERED: WARFARIN SOD 0.5 MG TAB PO ONE (20:30)
[2022-12-15] MEDS ORDERED: WARFARIN SOD 4 MG TAB PO ONE (20:30)
[2022-12-15] MEDS ORDERED: LANTUS PER UNIT CHARGE SQ SCH (21:00)
[2022-12-15] MEDS: INSULIN ASPART PER UNIT CHARGE SC SCH (22:02)
[2022-12-15] MEDS ORDERED: ALBUT/IPRATROP 3MG/0.5MG NEB 3 ML VIAL ONE (22:09)
[2022-12-15] MEDS: RANOLAZINE 500 MG ER TAB PO SCH (22:24)
[2022-12-15] MEDS: PREGABALIN 100 MG CAP PO SCH (22:24)
[2022-12-16] MEDS: INSULIN ASPART PER UNIT CHARGE SC SCH ×5 (01:56→20:49)
[2022-12-16 07:17] LABS: Basophils # (auto) 0.01 K/uL (0.00-0.20); Basophils % (auto) 0.1 %; Hemoglobin 13.5 g/dl (14.0-18.0); Immature Granulocytes # (auto) 0.03 K/uL (0.01-0.20); Immature Granulocytes % (auto) 0.4 %; Lymphocytes # (auto) 0.48 K/uL (1.20-3.40); Lymphocytes % (auto) 6.5 %; Mean Corpuscular Hemoglobin 31.7 pg (25.0-34.0); Mean Corpuscular Hgb Conc 34.6 g/dL (32.0-36.0); Mean Corpuscular Volume 91.5 fL (80.0-100.0); Mean Platelet Volume 10.1 fL (9.4-12.4); Monocytes # (auto) 0.23 K/uL (0.11-0.59); Monocytes % (auto) 3.1 %; Neutrophils # (auto) 6.63 K/uL (1.40-6.50); Neutrophils % (auto) 89.9 %; Platelet Count 198 K/uL (130-400); RDW Coefficient of Variation 13.9 % (11.5-14.5); RDW Standard Deviation 46.9 fL (36.4-46.3); Red Blood Count 4.26 M/uL (4.70-6.10); White Blood Count 7.38 K/ul (4.8-10.8)
[2022-12-16 07:36] LABS: INR 1.4 (0.9-1.1); Prothrombin Time 14.7 Seconds (9.0-12.0)
[2022-12-16] MEDS: ALBUT/IPRATROP 3MG/0.5MG NEB 3 ML VIAL NEB SCH ×5 (07:36→22:15)
[2022-12-16 07:37] LABS: BUN Creatinine Ratio 17.2 (10-20); Calcium 9.6 mg/dl (8.6-10.3); Creatinine Clr Calc Pharmacy 45.1 ml/min; Est GFR (Non-African American) 39.7 ml/min; Magnesium 1.8 mg/dl (1.7-2.4); Potassium 3.9 mmol/L (3.5-5.1)
[2022-12-16] MEDS: LANTUS PER UNIT CHARGE SQ SCH ×2 (08:40→20:49)
[2022-12-16] MEDS: ROSUVASTATIN CALCIUM 20 MG TAB PO SCH (08:41)
[2022-12-16] MEDS: TAMSULOSIN HCL 0.4 MG CAP PO SCH (08:41)
[2022-12-16] MEDS: METOPROLOL SUCC 25MG EXT REL TAB PO SCH (08:41)
[2022-12-16] MEDS: PREGABALIN 100 MG CAP PO SCH ×3 (08:41→20:47)
[2022-12-16] MEDS ORDERED: methylPREDNISolone 40 MG in SYRINGE 0 ML IV SCH ×2 (09:00→21:00)
[2022-12-16] MEDS ORDERED: DOXYCYCLINE HYCLATE 100 MG in DEXTROSE 5% MINI-B 100 ML IV SCH (09:00)
[2022-12-16] MEDS ORDERED: FUROSEMIDE 40 MG TAB PO SCH (09:00)
--- NOTE | 2022-12-16 09:23 | Hospitalist Progress Note ---
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 Was 85% on RA at presentation. -follows with Dr. Gomez for ILD of unclear etiology, multifactorial restrictive lung disease, and complex sleep apnea, recent PFT with mod-severe restrictive physiology and reduced DLCO. Pulmonary HTN with hx MS s/p annuloplasty. home inhaler is arnuity ellipta 50 mcg qD -continue PCU on tele and pulse oximetry -remains hypoxic, wheezy and congested -too late in clinical course to benefit from COVID-specific treatment such as remdesivir -repeat PCT pending, continue antibiotics but given his structural lung disease and pulmonary infiltrates on CXR will broaden to cefepime pending sputum culture and change doxycycline to po -continue steroids - decrease to methylprednisolone 40 IV bid -continue albuterol/ipratropium scheduled -continue guaifenesin prn -consulted pulmonary, reviewed Kirit in chart note which I appreciate. Added trial of diuresis 40 mg IV Lasix x1 now, BMP in a.m. (2) Heart failure with mid-range ejection fraction (HFmEF): Plan: Chronic diastolic HF last EF 40-45% 06/2022, s/p mitral valve annuloplasty. Coronary artery disease: small apical LAD disease and otherwise nonobstructive disease by cath in 09/2018. Low risk stress 03/2021. Trop negative at admission. Followed by Dr. Naranjo, last saw Jolynn Kearney PA-C 08/07/22 - TTE completed, pending Lasix 40 mg IV x1 ordered, outpatient oral dose is 40 mg most days of the week -continue metoprolol, rosuvastatin, ranexa (3) AF (atrial fibrillation): Plan: -home dose 3 mg MF and 1.5 mg other days -4.5 mg warfarin given 12/15 -remains subtherapeutic today at 1.4, goal 2.0-3.0 -anticipate interaction with antibiotics -continue usual dose warfarin today, daily AM INR -Continue Metoprolol (4) Diabetes mellitus type 2, controlled: Plan: -with steroid induced hyperglycemia, uncontrolled -Monitor BSG ACHS -Normally takes 30 units Degludec HS -DMII/HH diet -Pharmacist consulting for glycemic management - discussed with pharmacist and RN today, insulins adjusted / increased above baseline (5) Hypertension: Plan: -Stable -Can continue metoprolol (6) Complex sleep apnea syndrome: Plan: -HS Bipap per patient's home settings Plan Mild elevation of bilirubin - AST/ALT/AP normal. AM CMP BPH - cont tamsulosin CKD [address] Romero Admission and Anticipated Discharge Date Admission Date: December 15, 2022 Subjective shortness of breath and wheezing still present at rest but improved compared to yesterday. No chest pain. Produced sputum for sample. no leg swelling. COVID started 10 days ago, didn't take any specific treatment. Took cold medicine. Physical Exam Physical Exam: PHYSICAL EXAMINATION Last 24h vital signs reviewed, see documentation in flowsheet General: somewhat ill-appearing, alert HEENT: Normocephalic, atraumatic, pupils round and equal, sclerae anicteric, no conjunctival injection, moist mucus membranes Lungs: increased respiratory effort. coarse breath sounds and expiratory wheezes bilaterally Heart: Regular rate and rhythm, systolic murmur. neck is large hard to assess for JVD Abdomen: Soft, nontender, nondistended. Bowel sounds present. Extremities: Warm, dry, well-perfused. trace extremity edema. Neuro: Alert and oriented x 4, face symmetric, moves 4 extremities well Psych: Normal affect and behavior Results & Data Results & Data Vital Signs (Past 12 Hours) Vital Signs Temp Pulse Pulse Resp BP Pulse Ox O2 Del Method 12/16/22 08:02 36.6 C 76 20 145/84 H 96 Nasal Cannula 12/16/22 07:46 88 18 94 CPAP 12/16/22 04:12 73 14 125/74 94 CPAP 12/16/22 02:21 67 19 98 12/16/22 01:10 Nasal Cannula 12/16/22 01:10 36.5 C 78 20 124/79 97 Nasal Cannula 12/15/22 23:13 74 15 112/69 97 BiPAP 12/15/22 22:30 80 17 95 Nasal Cannula 12/15/22 22:13 84 16 100 O2 Flow Rate FiO2 12/16/22 08:02 4 12/16/22 07:46 30 12/16/22 04:12 30 12/16/22 02:21 30 12/16/22 01:10 4 12/16/22 01:10 4 12/15/22 23:13 12/15/22 22:30 2 12/15/22 22:13 30 PG Care Time/CCT Total # of Minutes Spent Total Time Spent with Patient: Total time spent is greater than 50% in coordination of care (as documented) at patient's floor/unit and/or counseling patient: Coding Level of Care Code 86858 SUB INP/OBS CARE 3/50MIN Diagnoses Acute respiratory failure with hypoxia J96.01 Heart failure with mid-range ejection fraction (HFmEF) I50.22 AF (atrial fibrillation) I48.91 Diabetes mellitus type 2, controlled E11.9 Hypertension I10 Hypertension type: essential hypertension Complex sleep apnea syndrome G47.31 (5) Hypertension Hypertension type: essential hypertension Qualified Code(s): I10 - Essential (primary) hypertension
[2022-12-16] MEDS: RANOLAZINE 500 MG ER TAB PO SCH ×2 (10:27→20:47)
[2022-12-16] MEDS: CEFEPIME 2,000 MG in SYRINGE 0 ML IV SCH ×2 (10:28→23:32)
[2022-12-16] MEDS: FENOFIBRATE NANOCRYSTALLIZED 48 MG TABLET PO SCH (10:28)
[2022-12-16] MEDS ORDERED: INSULIN HUMAN REGULAR PER UNIT 10 UNITS in SYRINGE 9.9 ML IV ONE (12:15)
--- NOTE | 2022-12-16 12:22 | Pharmacy Report ---
Pharmacy Glycemic Short Note 2 - Date of Service December 16, 2022 - Glycemic Short BSG Results (Last 24 hours): 12/15/22 12/15/22 12/16/22 16:20 21:39 01:13 Glucose 165 H POC Glucose 290 H 317 H* 12/16/22 12/16/22 12/16/22 01:15 06:37 07:59 Glucose 316 H* POC Glucose 295 H 285 H 12/16/22 12/16/22 11:43 11:44 Glucose POC Glucose 366 H* 393 H* OUTPATIENT ANTIDIABETIC REGIMEN: * Lantus 30 units SQ HS * Novolog 10-12 units with meals * HbA1C= 7.3% (10/26/22) ASSESSMENT: * Mr Babb is a 72 y/o M with T2DM who presents with hypoxia. Patient initially given Solu Medrol 125 mg IV x 1 in ER on 12/15 @1900. * Patient is now on Solu-Medrol 40 mg IV BID. * BSGs after 125 mg IV given were 290 @ HS and 317 @ 0100. * Patient given Lantus 30 units yesterday + Novolog 8 units. He received 9 extra units overnight. * Will start Lantus 30 units BID due to steroids. * Tighten up Novolog to weight-based stress of 3. * Due to elevated BSG @ lunch (366) will give IV bolus (K > 3.5) Recheck 2 hours after bolus given to ensure BSGs trending downwards PLAN FOR INPATIENT GLYCEMIC CONTROL: * Basal insulin * Lantus 30 units SQ BID * Bolus insulin * NovoLog per scale ACHS or Q6hrs while NPO * Goal Range: Low 110 mg/dL - High 140 mg/dL * Correction Factor: 20 mg/dL/unit * Nutritional / Prandial insulin per carb ratio of 1 unit per 4 grams CHO consumed
--- NOTE | 2022-12-16 12:54 | Pulmonary Consultation ---
Date of Consultation December 16, 2022 Assessment & Plan (1) Interstitial lung disease: His chest x-rays appear relatively unchanged compared to prior. Perhaps there is mildly increased pulmonary vascular congestion. Recommend a trial of low- dose diuresis. Agree with an empiric trial of systemic corticosteroids and transitioning rapidly to oral steroids for a course of 10 to 14 days. 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 Recommend outpatient pulmonary rehab evaluation as well. Procalcitonin was unremarkable. I am doubtful of an acute bacterial infection. Repeat Pro-Dennis tomorrow and if negative, discontinue antibiotics. (Order placed). Obtain sputum cx. COVID-19 was positive on admission which may be a persistent finding given his positive COVID-19 test as an outpatient. Unclear whether this is playing a significant role in his acute symptoms. Low threshold for ordering non-con ct chest. (2) Bronchospasm with bronchitis, acute: Continue systemic corticosteroids and duo-neb therapy. (3) Hypoxia: Continue wean oxygen to maintain saturations of 89% or above given the underlying pulm hypertension. I suspect his hypoxemia is multifactorial related to congestive heart failure and perhaps a mild ILD flare. (4) Pulmonary edema: Recommended trial of diuresis as above. Will defer diuresis to primary team. Will repeat echocardiogram (order placed) to evaluate for worsening ejection fraction and RVSP. (5) Complex sleep apnea syndrome: Continue ASV with supplemental oxygen and his history of central sleep apnea. Asked that his bring his ASV PAP therapy from home. (6) Pulmonary hypertension: See comments above regarding obtaining echo. (7) COVID-19: Unclear role at this time. I would not recommend specific therapy for COVID-19 infection. Plan D/W bedside RN and bedside RT. Thank you. Will follow. History of Present Illness Reason for Consultation: "ILD, hypoxic respiratory failure" Attending Physician: Brigette Nuñez MD History of Present Illness 72-year-old male with a past medical history of A-fib on Coumadin, mitral stenosis status post annuloplasty, hypertension, CAD, complex sleep apnea syndrome on ASV with 3 L of oxygen, diabetes mellitus type 2 who presented to the ER yesterday due to shortness of breath and cough. Patient reportedly tested positive for COVID-19 2 weeks ago and had mild symptoms. He was found to be hypoxic on room air to 83% in the emergency department and placed on supplemental oxygen. Patient coughing up yellow and brown sputum. Denies fever. No chest pain. Patient normally follows with Dr. Gomez in the pulmonary clinic and was last evaluated by him 10/26/2022. He notes a history of complex sleep disordered breathing on ASV as mentioned above. He also describes a history of restrictive lung physiology secondary to obesity and ILD. There is also an element of pulmonary hypertension suspected to be combination of WHO group 2 and 3 pulm hypertension. Chest x-ray this admission was personally reviewed by me. There is evidence of bilateral interstitial infiltrates with cephalization of the pulmonary vasculature. Repeat PA and lateral chest films completed subsequent to the portable x-ray reveals similar findings. I was able to review these images compared to a prior chest x-ray from 06/21/2022 and the findings appear essentially unchanged. Additionally, I personally reviewed his CT chest from 06/15/2022 which revealed a dilated esophagus. Subpleural groundglass opacities were noted in the apical to basilar distribution. There is also traction bronchiectasis noted in the right middle lobe with subpleural reticulations and minimal honeycombing noted in the right middle lobe region. Bronchial wall thickening noted in the lower lobes bilaterally. Echo 06/15/2022 reveals an LVEF of 40 to 45%. Right ventricle is moderately dilat ed. BNP this admission was mildly elevated to 186. Procalcitonin was 0.27. Sputum culture is pending. Patient was started on Rocephin, doxycycline and methylprednisone 40 mg 3 times daily. PFT 10/27/2022 was personally reviewed which reveals severe restriction with a TLC of 56% and DLCO 48% consistent with underlying ILD. Allergies Allergy/AdvReac Type Severity Reaction Status Date / Time dulaglutide [From [facility]] AdvReac Intermediate Diarrhea , Verified 12/15/22 19:35 nausea Home Medications Medication Instructions Recorded Confirmed Type cholecalciferol (vitamin D3) 25 1,000 units PO QDL 10/04/18 12/15/22 History mcg (1,000 unit) tablet multivitamin (Daily Multi-Vitamin 1 tab PO QAM 03/15/20 12/15/22 History tablet) omega 7-nwn-sfi-fish oil 1,000 mg 1 cap PO QAM 06/10/21 12/15/22 History (120 mg-180 mg) capsule (Fish Oil) Oxygen Home #1 ea 08/27/21 12/15/22 Rx blood-glucose sensor (Dexcom G6 #3 ea 09/04/21 12/15/22 Rx Sensor device) blood-glucose transmitter (Dexcom #1 ea 09/04/21 12/15/22 Rx G6 Transmitter device) rosuvastatin 20 mg tablet (Crestor) 20 mg PO QAM #90 tabs 03/11/22 12/15/22 Rx fluticasone furoate 50 1 inh inhalation QAM #90 ea 03/20/22 12/15/22 Rx mcg/actuation blister powder for inhalation (Arnuity Ellipta) ascorbic acid (vitamin C) 1,000 mg 1 g PO DAILY #90 caps 03/24/22 12/15/22 Rx capsule pen needle, diabetic 32 gauge x #200 ea 04/14/22 12/15/22 Rx 5/32" (BD Reyna 2nd Gen Pen Needle) albuterol sulfate 90 mcg/actuation 1 - 2 puff inhalation Q4H PRN 06/04/22 12/15/22 Rx aerosol inhaler shortness of breath #18 grams pregabalin 100 mg capsule 100 mg PO TID #270 caps 06/08/22 12/15/22 Rx calcium carbonate 600 mg calcium 600 mg PO DAILY 06/09/22 12/15/22 History (1,500 mg) tablet (Calcium) cranberry 400 mg capsule 400 mg PO DAILY 06/09/22 12/15/22 History cyanocobalamin (vitamin B-12) 100 1,000 mcg PO Q2D 06/09/22 12/15/22 History mcg tablet docusate sodium 100 mg capsule 200 mg PO DAILY 06/09/22 12/15/22 History nitroglycerin 0.3 mg sublingual 0.3 mg sublingual Q5M PRN chest 06/09/22 12/15/22 Rx tablet pain #10 tabs insulin degludec 200 unit/mL (3 30 unit subcut HS 07/01/22 12/15/22 History mL) subcutaneous pen (Tresiba FlexTouch U-200 insulin) metoprolol succinate 50 mg 75 mg PO DAILY #45 tabs 08/07/22 12/15/22 Rx tablet,extended release 24 hr ranolazine 1,000 mg 1,000 mg PO Q12H #180 tabs 08/14/22 12/15/22 Rx tablet,extended release,12 hr furosemide 40 mg tablet 40 mg PO QAM #90 tabs 09/07/22 12/15/22 Rx fenofibrate nanocrystallized 48 mg 48 mg PO QDL #90 tabs 10/21/22 12/15/22 Rx tablet Novolog FlexPen U-100 Insulin 100 10 - 20 unit (0.1 - 0.2 mL) subcut 11/26/22 12/15/22 Rx unit/mL (3 mL) subcutaneous TID #15 mL (insulin aspart U-100) tamsulosin 0.4 mg capsule 0.4 mg PO DAILY #30 caps 12/01/22 12/15/22 Rx warfarin 3 mg tablet 0 mg PO DIRECTED 12/15/22 12/15/22 History Patient History Medical History (Updated 12/16/22 @ 20:47 by Kwadwo Bravo MD) Abdominal aortic aneurysm dissection "infrarenal aortic dissection extending into right common iliac and right pr oximal mid external iliac arteries": Annual surveillance (stable), monitored by [facility] vascular surgery Acute UTI Atrial fibrillation 2020 follow with [facility] Bilateral renal cysts BPH with obstruction/lower urinary tract symptoms Bronchospasm with bronchitis, acute CKD stage 3 due to type 2 diabetes mellitus follows with [facility] Baseline creatinine 1.7-2.0 per nephrology notes Complex sleep apnea syndrome ASV machine with 2L supplemental oxygen nightly-compliant, follows with [facility] Congestive heart failure EF 50-55% 09/2020 echo Coronary atherosclerosis of [place] coronary vessel Severe 80-90% apical LAD disease. Moderate non-obstructive proximal-mid LAD (FFR 0.83). Mild-moderate multivessel disease- 30-40% proximal OM1, mid circumflex, mid RCA 10/12/18 cath: Distal LAD disease is low risk involving small vessel at the apex. Recommend trial of additional antianginal therapy, start Imdur. If persistent symptoms could consider POBA +/- stent to LAD. Diabetic nephropathy associated with type 2 diabetes mellitus Diabetic polyneuropathy B/L LE Dyslipidemia Encounter for pre-operative examination Gastroparesis Heart failure with mid-range ejection fraction (HFmEF) History of anemia History of blood transfusion during mitral valve repair per pt Hypertension controlled, stable per pt Interstitial lung disease monitoring per [facility] IPMN (intraductal papillary mucinous neoplasm) Lumbar back pain Pulmonary edema Pulmonary hypertension Moderate 09/2020 echo, "suspected secondary to elevated end-diastolic pressure, obesity, restrictive lung disease, hypoxemia and sleep disordered breathing: Would not recommend consideration for any pulmonary vasodilators at this point" follows with [facility]; Right heart cath 07/11/21: Normal left and right-sided filling pressures. Normal pulmonary artery pressure. Restrictive lung disease Stroke 2019, embolic, 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 CVA post cardiac catheterization, mild residual aphasia Syncope and collapse Surgical History History of cardiac cath no stents History of colonoscopy History of cystoscopy Left Ureteronephroscopy 08/24/2019: Grade 3 view, MAC#3.0, ETT#8.0. No issues per anesthesia postop progress note. History of mitral valve replacement 2007, [facility] History of shoulder surgery RT/LEFT History of surgical removal of pilonidal cyst History of tooth extraction History of total left knee replacement Family History Mother Colon cancer Diabetes Grandmother Multiple sclerosis Father Diabetes Coronary heart disease Myocardial infarction Grandfather Stroke Sister Diabetes Hypertension Brother Diabetes Hypertension Son Depression Hypertension Other No family history of adverse response to anesthesia Denies family history of Ovarian cancer Prostate cancer Breast cancer Social History Smoking Status: Never smoker Second Hand Exposure: No; Do You Dip or Chew Tobacco: No; Hx Alcohol Use: No Hx Substance Use: No Preferred Language: Japanese Communication Ability: Effective Visual Impairment: No Limitations Hearing Ability: [place] Sanitarian Required: No Beliefs That Will Affect Care: None marital status: Current Living Situation: Spouse Current Living Situation Comment: live with and grown children current occupational status: retired current occupation: Former [employer] How many Children do You have: 2 Feels Safe at Home: Yes Childhood Exposure to Second-Hand Smoke: No Dental Care, Regularly: No Physical Activity Frequency: Does not Exercise Seatbelt Use: always Sunscreen Use: No Assistive Devices: Cane, Oxygen - Continuous and Walker Review of Systems Review of Systems: All systems reviewed & are unremarkable except as noted in HPI & below Physical Exam Constitutional: + ill appearing, + obese and + disheveled Eyes: PERRL, conjunctivae normal, anicteric sclerae Neck: + short neck and + thick neck Respiratory: + cough and + audible wheezes Auscultation: + diminished lung sounds and + wheezes Cardiovascular: RRR, no murmur, no edema Gastrointestinal (Abdomen): normal bowel sounds, soft, nontender, no hepatosplenomegaly Musculoskeletal: no cyanosis or clubbing, extremities motor strength 5/5 Skin: no rashes, warm and dry Neurologic: PERRL, EOMI, accommodation nl, no face palsy, no dysarthria Results & Data Results & Data Vital Signs (Past 12 Hours) Vital Signs Temp Pulse Pulse Resp BP Pulse Ox O2 Del Method 12/16/22 12:12 36.6 C 82 20 130/76 95 Nasal Cannula 12/16/22 11:20 77 18 97 Nasal Cannula 12/16/22 09:56 Nasal Cannula 12/16/22 08:02 36.6 C 76 20 145/84 H 96 Nasal Cannula 12/16/22 07:46 88 18 94 CPAP 12/16/22 04:12 73 14 125/74 94 CPAP 12/16/22 02:21 67 19 98 12/16/22 01:10 Nasal Cannula 12/16/22 01:10 36.5 C 78 20 124/79 97 Nasal Cannula O2 Flow Rate FiO2 12/16/22 12:12 4 12/16/22 11:20 4 12/16/22 09:56 2 12/16/22 08:02 4 12/16/22 07:46 30 12/16/22 04:12 30 12/16/22 02:21 30 12/16/22 01:10 4 12/16/22 01:10 4 PG Care Time/CCT Total # of Minutes Spent Total Time Spent with Patient: Total time spent is greater than 50% in coordination of care (as documented) at patient's floor/unit and/or counseling patient: Coding Level of Care Code 82781 INT INP/OBS CARE MIN Diagnoses Interstitial lung disease J84.9 Bronchospasm with bronchitis, acute J20.9 Hypoxia R09.02 Pulmonary edema J81.1 Complex sleep apnea syndrome G47.31 Pulmonary hypertension I27.20 COVID-19 U07.1
[2022-12-16] MEDS ORDERED: INSULIN ASPART PER UNIT CHARGE SC SCH (14:30)
--- NOTE | 2022-12-16 14:41 | XCELERA ---
[id number] \\[email or web address]\[id number]
[2022-12-16] MEDS ORDERED: WARFARIN SOD 3 MG TAB PO SCH (16:00)
[2022-12-16] MEDS ORDERED: cefTRIAXone SODIUM 2,000 MG in DEXTROSE 5 % MINI-B 50 ML IV SCH (17:00)
[2022-12-16] MEDS: WARFARIN SOD 0.5 MG TAB PO SCH (17:03)
[2022-12-16] MEDS ORDERED: POTASSIUM CHLORIDE CRTAB 20 MEQ TABCR PO STA (17:54)
[2022-12-16] MEDS ORDERED: FUROSEMIDE 40 MG/4 ML VIAL IV ONE (18:00)
[2022-12-16] MEDS: DOXYCYCLINE HYCLATE 100 MG CAP PO SCH (20:48)
[2022-12-17] MEDS: ALBUT/IPRATROP 3MG/0.5MG NEB 3 ML VIAL NEB SCH ×6 (01:46→22:23)
[2022-12-17 06:28] LABS: Basophils # (auto) 0.01 K/uL (0.00-0.20); Basophils % (auto) 0.1 %; Hematocrit (blood only) 37.1 % (42.0-52.0); Hemoglobin 12.9 g/dl (14.0-18.0); Immature Granulocytes # (auto) 0.12 K/uL (0.01-0.20); Immature Granulocytes % (auto) 1.2 %; Lymphocytes # (auto) 0.49 K/uL (1.20-3.40); Lymphocytes % (auto) 4.9 %; Mean Corpuscular Hemoglobin 31.9 pg (25.0-34.0); Mean Corpuscular Hgb Conc 34.8 g/dL (32.0-36.0); Mean Corpuscular Volume 91.8 fL (80.0-100.0); Mean Platelet Volume 10.4 fL (9.4-12.4); Monocytes # (auto) 0.49 K/uL (0.11-0.59); Monocytes % (auto) 4.9 %; Neutrophils # (auto) 8.85 K/uL (1.40-6.50); Neutrophils % (auto) 88.9 %; Platelet Count 206 K/uL (130-400); RDW Coefficient of Variation 13.4 % (11.5-14.5); Red Blood Count 4.04 M/uL (4.70-6.10); White Blood Count 9.96 K/ul (4.8-10.8)
[2022-12-17 07:06] LABS: INR 1.6 (0.9-1.1); Prothrombin Time 17.1 Seconds (9.0-12.0)
[2022-12-17 07:08] LABS: Albumin Globulin Ratio 1.2 (0.9-2); Albumin Level 3.9 gm/dl (3.4-5.0); BUN Creatinine Ratio 23.3 (10-20); Bilirubin,Total 0.6 mg/dl (0.2-1.0); Calcium 9.5 mg/dl (8.6-10.3); Creatinine Clr Calc Pharmacy 44.4 ml/min; Est GFR (Non-African American) 38.9 ml/min; Globulin 3.2 gm/dl (2.5-4.0); Magnesium 1.8 mg/dl (1.7-2.4); Potassium 4.4 mmol/L (3.5-5.1); Total Protein 7.1 gm/dl (6.0-8.3)
--- NOTE | 2022-12-17 08:07 | Pulmonology Progress Note ---
Date of Service December 17, 2022 Assessment & Plan (1) Interstitial lung disease: Plan: His chest x-rays appear relatively unchanged compared to prior. Perhaps there is mildly increased pulmonary vascular congestion. Recommend a trial of low- dose diuresis. Agree with an empiric trial of systemic corticosteroids and transitioning rapidly to oral steroids for a course of 10 to 14 days. Further ILD management per outpatient pulmonary provider. Down to 2L NC at this time. Would encourage out of bed to chair and ambulation as tolerated. Procalcitonin marginal. Sputum cultures pending. Ok to complete course of Doxy PO. COVID-19 was positive on admission which may be a persistent finding given his positive COVID-19 test as an outpatient. Unclear whether this is playing a significant role in his acute symptoms. Down to 2L NC at this time. (2) Bronchospasm with bronchitis, acute: Plan: Continue systemic corticosteroids and duo-neb therapy. (3) Hypoxia: Plan: Continue wean oxygen to maintain saturations of 89% or above given the underlying pulm hypertension. I suspect his hypoxemia is multifactorial related to congestive heart failure and perhaps a mild ILD flare. (4) Pulmonary edema: Plan: Recommended trial of diuresis as above. Will defer diuresis to primary team. Will repeat echocardiogram (order placed) to evaluate for worsening ejection fraction and RVSP. (5) Complex sleep apnea syndrome: Plan: Continue ASV with supplemental oxygen and his history of central sleep apnea. Asked that his bring his ASV PAP therapy from home. (6) Pulmonary hypertension: Plan: See comments above regarding obtaining echo. (7) COVID-19: Plan: Unclear role at this time. I would not recommend specific therapy for COVID-19 infection. Plan D/W bedside RN and bedside RT. Thank you. Will follow. Admission and Anticipated Discharge Date Admission Date: December 15, 2022 Subjective Patient seen and evaluated at bedside. He reports that he still has an ongoing cough which is occasionally productive. He states that he does seem to cough much worse after his breathing treatments. Otherwise, he has not had much time out of his bed and reports poor sleep overnight. Otherwise, he offers no new complaints this point. Review of Systems Review of Systems: Unchanged from admission Physical Exam Physical Exam: VITAL SIGNS - Vital signs and nursing notes were reviewed. GENERAL - 72-year-old male appearing his stated age who is in no acute distress. Communicates well with provider and answers questions appropriately. LUNGS - Auscultation reveals diminished breath sounds with slight wheezes noted. CARDIAC - RRR with S1/S2. No murmur, rubs, or gallops appreciated. PSYCH - A&Ox3 and cooperates fully with examiner. Pt is very pleasant and interacts well with examiner. Results & Data Results & Data Vital Signs (Past 12 Hours) Vital Signs Temp Pulse Pulse Pulse Resp BP Pulse Ox 12/17/22 08:02 36.5 C 84 19 115/73 95 12/17/22 07:43 85 20 96 12/17/22 03:15 36.5 C 86 18 110/77 98 12/17/22 01:47 15 12/17/22 01:47 15 12/17/22 00:00 76 12/16/22 22:47 36.6 C 86 18 125/75 99 12/16/22 22:16 80 21 96 12/16/22 22:15 80 20 96 12/16/22 20:20 O2 Del Method O2 Flow Rate FiO2 12/17/22 08:02 Nasal Cannula 2 12/17/22 07:43 Nasal Cannula 2 12/17/22 03:15 BiPAP 12/17/22 01:47 CPAP 30 12/17/22 01:47 30 12/17/22 00:00 12/16/22 22:47 BiPAP 12/16/22 22:16 30 12/16/22 22:15 CPAP 30 12/16/22 20:20 Nasal Cannula, BiPAP 2 PG Care Time/CCT Total # of Minutes Spent Total Time Spent with Patient: Total time spent is greater than 50% in coordination of care (as documented) at patient's floor/unit and/or counseling patient: Coding Level of Care Code 94810 SUB INP/OBS CARE 2/35MIN Diagnoses Interstitial lung disease J84.9 Bronchospasm with bronchitis, acute J20.9 Hypoxia R09.02 Pulmonary edema J81.1 Complex sleep apnea syndrome G47.31 Pulmonary hypertension I27.20 COVID-19 U07.1
[2022-12-17] MEDS: DOXYCYCLINE HYCLATE 100 MG CAP PO SCH ×2 (08:14→21:32)
[2022-12-17] MEDS: RANOLAZINE 500 MG ER TAB PO SCH ×2 (08:14→21:32)
[2022-12-17] MEDS: PREGABALIN 100 MG CAP PO SCH ×3 (08:14→20:47)
[2022-12-17] MEDS: LANTUS PER UNIT CHARGE SQ SCH ×2 (08:15→20:49)
[2022-12-17] MEDS: INSULIN ASPART PER UNIT CHARGE SC SCH ×4 (08:15→20:44)
[2022-12-17] MEDS: METOPROLOL SUCC 25MG EXT REL TAB PO SCH (08:15)
[2022-12-17] MEDS: TAMSULOSIN HCL 0.4 MG CAP PO SCH (08:15)
[2022-12-17] MEDS: guaiFENesin SUGAR FREE 200 MG/10 ML UDC PO PRN (08:15)
[2022-12-17] MEDS: FLUTICASONE FUROATE 100MCG 14 PUFFS/INHALER INH SCH (08:16)
[2022-12-17] MEDS: ROSUVASTATIN CALCIUM 20 MG TAB PO SCH (08:16)
[2022-12-17] MEDS ORDERED: POTASSIUM CHLORIDE CRTAB 20 MEQ TABCR PO STA (09:18)
[2022-12-17] MEDS ORDERED: FUROSEMIDE 40 MG/4 ML VIAL IV ONE (09:18)
--- NOTE | 2022-12-17 09:36 | Hospitalist Progress Note ---
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 Was 85% on RA at p resentation. -follows with Dr. Gomez for ILD of unclear etiology, multifactorial restrictive lung disease, and complex sleep apnea, recent PFT with mod-severe restrictive physiology and reduced DLCO. Pulmonary HTN with hx MS s/p annuloplasty. home inhaler is arnuity ellipta 50 mcg qD -remains hypoxic, wheezy and congested but improving -too late in clinical course to benefit from COVID-specific treatment such as remdesivir -stop broad-spectrum ABX but complete course of oral doxycycline -diuresed with IV lasix 12/16. TTE reviewed and euvolemic -CXR reviewed 12/17 - unchanged with cardiomegaly, pulmonary vascular congestion and asymmetric airspace opacities -continue steroids - decrease to prednisone 40 mg daily -continue albuterol/ipratropium scheduled -continue guaifenesin prn -consulted pulmonary, reviewed recs in note today (2) Heart failure with mid-range ejection fraction (HFmEF): Plan: Chronic diastolic HF last EF 40-45% 06/2022, s/p mitral valve annuloplasty. Same EF on updated TTE 12/16, reviewed Coronary artery disease: small apical LAD disease and otherwise nonobstructive disease by cath in 09/2018. Low risk stress 03/2021. Trop negative at admission. Followed by Dr. Naranjo, last saw Jolynn Kearney PA-C 08/07/22 - TTE 12/16 unchanged Lasix 40 mg IV x1 given 12/16. Now euvolemic based on exam and echo -continue metoprolol, rosuvastatin, ranexa (3) COVID-19: (4) Interstitial lung disease: Plan: (5) Pulmonary hypertension: Plan: pulmonary artery pressures mildly worse on updated echo (6) AF (atrial fibrillation): Plan: -home dose 3 mg MF and 1.5 mg other days -4.5 mg warfarin given 12/15 -remains subtherapeutic today at 1.6, goal 2.0-3.0 -anticipate interaction with antibiotics -continue usual dose warfarin today, daily AM INR, consider bridging tomorrow if still subtherapeutic -Continue Metoprolol (7) Complex sleep apnea syndrome: Plan: continue ASV PAP, also uses nocturnal O2 at home (8) Diabetes mellitus type 2, controlled: Plan: -with steroid induced hyperglycemia, uncontrolled -Monitor BSG ACHS -Normally takes 30 units Degludec HS -DMII/HH diet -Pharmacist consulting for glycemic management -BG reviewed 12/17 still above goal but improve and steroids decreased (9) Hypertension: Plan: -Stable, BP reviewed 12/17 at goal -Can continue metoprolol (10) Stage 3b chronic kidney disease: Plan: Cr stable at baseline, 1.72. BUN increased to 40 related to diuresis -monitor, avoid nephrotoxin Plan DVT ppx - anticoagulated on warfarin but still subtherapeutic Ruth//lines - no Admission and Anticipated Discharge Date Admission Date: December 15, 2022 Subjective Breathing has improved - less short of breath at rest, less wheezing, less coughing. No chest pain. Leg edema better Physical Exam Physical Exam: PHYSICAL EXAMINATION Last 24h vital signs reviewed, see documentation in flowsheet General: looks much better, sitting up in bed, alert HEENT: Normocephalic, atraumatic, pupils round and equal, sclerae anicteric, no conjunctival injection, moist mucus membranes Lungs: mildly increased respiratory effort. breath sounds much less coarse, exp wheezing bilaterally, better air movement Heart: Regular rate and rhythm, systolic murmur. neck is large hard to assess for JVD Abdomen: Soft, nontender, nondistended. Bowel sounds present. Extremities: Warm, dry, well-perfused. minimal extremity edema. Neuro: Alert and oriented x 4, face symmetric, moves 4 extremities well Psych: Normal affect and behavior Results & Data Results & Data Vital Signs (Past 12 Hours) Vital Signs Temp Pulse Pulse Pulse Resp BP Pulse Ox 12/17/22 08:02 36.5 C 84 19 115/73 95 12/17/22 07:43 85 20 96 12/17/22 03:15 36.5 C 86 18 110/77 98 12/17/22 01:47 15 12/17/22 01:47 15 12/17/22 00:00 76 12/16/22 22:47 36.6 C 86 18 125/75 99 12/16/22 22:16 80 21 96 12/16/22 22:15 80 20 96 O2 Del Method O2 Flow Rate FiO2 12/17/22 08:02 Nasal Cannula 2 12/17/22 07:43 Nasal Cannula 2 12/17/22 03:15 BiPAP 12/17/22 01:47 CPAP 30 12/17/22 01:47 30 12/17/22 00:00 12/16/22 22:47 BiPAP 12/16/22 22:16 30 12/16/22 22:15 CPAP 30 PG Care Time/CCT Total # of Minutes Spent Total Time Spent with Patient: Total time spent is greater than 50% in coordination of care (as documented) at patient's floor/unit and/or counseling patient: Coding Level of Care Code 06014 SUB INP/OBS CARE 3/50MIN Diagnoses Acute respiratory failure with hypoxia J96.01 Heart failure with mid-range ejection fraction (HFmEF) I50.22 COVID-19 U07.1 Interstitial lung disease J84.9 Pulmonary hypertension I27.20 AF (atrial fibrillation) I48.91 Complex sleep apnea syndrome G47.31 Diabetes mellitus type 2, controlled E11.9 Essential hypertension I10 Hypertension type: essential hypertension Stage 3b chronic kidney disease N18.32 (9) Hypertension Hypertension type: essential hypertension Qualified Code(s): I10 - Essential (primary) hypertension
[2022-12-17] MEDS: predniSONE 20 MG TAB PO SCH (09:44)
[2022-12-17] MEDS: FENOFIBRATE NANOCRYSTALLIZED 48 MG TABLET PO SCH (09:45)
[2022-12-17] MEDS ORDERED: INSULIN HUMAN REGULAR PER UNIT 10 UNITS in SYRINGE 9.9 ML IV ONE (11:30)
[2022-12-17] MEDS ORDERED: LANTUS PER UNIT CHARGE SQ ONE (11:30)
--- NOTE | 2022-12-17 14:12 | Pharmacy Report ---
Pharmacy Glycemic Short Note 2 - Date of Service December 17, 2022 - Glycemic Short BSG Results (Last 24 hours): 12/16/22 12/16/22 12/16/22 15:10 16:43 20:25 Glucose POC Glucose 313 H* 294 H 266 H 12/17/22 12/17/22 12/17/22 06:03 07:49 11:08 Glucose 290 H POC Glucose 287 H 335 H* 12/17/22 11:09 Glucose POC Glucose 355 H* OUTPATIENT ANTIDIABETIC REGIMEN: * Lantus 30 units SQ HS * Novolog 10-12 units with meals * HbA1C= 7.3% (10/26/22) ASSESSMENT: 12/17/22 * BSGs yesterday were 285-366/393-313/194-266 mg/dL. Patient received 131 units of insulin (60 units of basal and 71 units of basal) * BSGs today are 287-355. * Patient received Solu-Medrol 40 mg IV BID yesterday. Changed to prednisone 40 mg this AM. * For Lantus, continue 30 units BID. Extra 20 units at lunch for prednisone hyperglycemia. * Tighten CF/CR significantly since patient's BSGs trended upwards. (First tightened at lunch yesterday, dinner yesterday, and then again at breakfast today). BACKGROUND * Mr Babb is a 72 y/o M with T2DM who presents with hypoxia. Patient initially given Solu Medrol 125 mg IV x 1 in ER on 12/15 @1900. * Patient is now on Solu-Medrol 40 mg IV BID. * BSGs after 125 mg IV given were 290 @ HS and 317 @ 0100. * Patient given Lantus 30 units yesterday + Novolog 8 units. He received 9 extra units overnight. * Will start Lantus 30 units BID due to steroids. * Tighten up Novolog to weight-based stress of 3. * Due to elevated BSG @ lunch (366) will give IV bolus (K > 3.5) Recheck 2 hours after bolus given to ensure BSGs trending downwards PLAN FOR INPATIENT GLYCEMIC CONTROL: * Basal insulin * Lantus 30 units SQ BID * Bolus insulin * NovoLog per scale ACHS or Q6hrs while NPO * Goal Range: Low 110 mg/dL - High 140 mg/dL * Correction Factor: 8 mg/dL/unit * Nutritional / Prandial insulin per carb ratio of 1 unit per 2 grams CHO consumed
[2022-12-17] MEDS: WARFARIN SOD 0.5 MG TAB PO SCH (18:42)
[2022-12-18] MEDS: ALBUT/IPRATROP 3MG/0.5MG NEB 3 ML VIAL NEB SCH ×5 (02:25→20:38)
[2022-12-18 07:06] LABS: Basophils # (auto) 0.02 K/uL (0.00-0.20); Basophils % (auto) 0.2 %; Hematocrit (blood only) 39.8 % (42.0-52.0); Hemoglobin 13.5 g/dl (14.0-18.0); Immature Granulocytes # (auto) 0.16 K/uL (0.01-0.20); Immature Granulocytes % (auto) 1.3 %; Mean Corpuscular Hemoglobin 31.7 pg (25.0-34.0); Mean Corpuscular Hgb Conc 33.9 g/dL (32.0-36.0); Mean Corpuscular Volume 93.4 fL (80.0-100.0); Mean Platelet Volume 9.9 fL (9.4-12.4); Monocytes # (auto) 1.02 K/uL (0.11-0.59); Neutrophils # (auto) 10.69 K/uL (1.40-6.50); Neutrophils % (auto) 83.5 %; Platelet Count 254 K/uL (130-400); RDW Coefficient of Variation 13.8 % (11.5-14.5); RDW Standard Deviation 47.2 fL (36.4-46.3); Red Blood Count 4.26 M/uL (4.70-6.10); White Blood Count 12.79 K/ul (4.8-10.8)
[2022-12-18 07:32] LABS: BUN Creatinine Ratio 29.1 (10-20); Calcium 9.6 mg/dl (8.6-10.3); Creatinine Clr Calc Pharmacy 43.6 ml/min; Est GFR (African American) 44.1 ml/min; Est GFR (Non-African American) 38.1 ml/min; Magnesium 1.8 mg/dl (1.7-2.4); Potassium 4.4 mmol/L (3.5-5.1)
[2022-12-18 07:56] LABS: INR 1.7 (0.9-1.1); Prothrombin Time 18.3 Seconds (9.0-12.0)
[2022-12-18] MEDS: INSULIN ASPART PER UNIT CHARGE SC SCH ×4 (08:23→21:56)
[2022-12-18] MEDS: LANTUS PER UNIT CHARGE SQ SCH (08:24)
[2022-12-18] MEDS: FLUTICASONE FUROATE 100MCG 14 PUFFS/INHALER INH SCH (08:44)
[2022-12-18] MEDS: guaiFENesin SUGAR FREE 200 MG/10 ML UDC PO PRN (08:44)
--- NOTE | 2022-12-18 09:38 | Hospitalist Progress Note ---
Date of Service December 18, 2022 Assessment & Plan (1) Acute respiratory failure with hypoxia: Plan: Late COVID-19 (started 10d [employer]), ILD flare, unlikely pneumonia - serial procalcitonin negative -typically uses 3L O2 only at night with his bipap. Was 85% on RA at p resentation. -follows with Dr. Gomez for ILD of unclear etiology, multifactorial restrictive lung disease, and complex sleep apnea, recent PFT with mod-severe restrictive physiology and reduced DLCO. Pulmonary HTN with hx MS s/p annuloplasty. home inhaler is arnuity ellipta 50 mcg qD -remains hypoxic, wheezy and congested but improving -too late in clinical course to benefit from COVID-specific treatment such as remdesivir -stop broad-spectrum ABX but complete course of oral doxycycline -diuresed with IV lasix 12/16. TTE reviewed and euvolemic -CXR reviewed 12/17 - unchanged with cardiomegaly, pulmonary vascular congestion and asymmetric airspace opacities -continue steroids - decreased to prednisone 40 mg daily. WBC 12 elevation due to steroids. -continue albuterol/ipratropium scheduled -continue guaifenesin prn -consulted pulmonary (2) Heart failure with mid-range ejection fraction (HFmEF): Plan: Chronic diastolic HF last EF 40-45% 06/2022, s/p mitral valve annuloplasty. Same EF on updated TTE 12/16, reviewed Coronary artery disease: small apical LAD disease and otherwise nonobstructive disease by cath in 09/2018. Low risk stress 03/2021. Trop negative at admission. Followed by Dr. Naranjo, last saw Jolynn Kearney PA-C 08/07/22 - TTE 12/16 unchanged Lasix 40 mg IV x1 given 12/16. Now euvolemic based on exam and echo -continue metoprolol, rosuvastatin, ranexa (3) COVID-19: (4) Interstitial lung disease: Plan: (5) Pulmonary hypertension: Plan: pulmonary artery pressures mildly worse on updated echo (6) AF (atrial fibrillation): Plan: -home dose 3 mg MF and 1.5 mg other days -4.5 mg warfarin given 12/15 -remains subtherapeutic today at 1.7, goal 2.0-3.0 -3 mg today, increase daily schedule to 3 mg MWF and 1.5 mg other days -daily AM INR, consider bridging tomorrow if still subtherapeutic -Continue Metoprolol (7) Complex sleep apnea syndrome: Plan: continue ASV PAP, also uses nocturnal O2 at home (8) Diabetes mellitus type 2, controlled: Plan: -with steroid induced hyperglycemia, uncontrolled -Monitor BSG ACHS -Normally takes 30 units Degludec HS -DMII/HH diet -Pharmacist consulting for glycemic management -BG reviewed 12/18 at goal 79-172 (9) Hypertension: Plan: -Stable, BP reviewed 12/17 at goal -Can continue metoprolol (10) Stage 3b chronic kidney disease: Plan: Cr stable at baseline, 1.75. BUN increased related to diuresis -monitor, avoid nephrotoxin Plan DVT ppx - anticoagulated on warfarin but still subtherapeutic Ruth//lines - no Admission and Anticipated Discharge Date Admission Date: December 15, 2022 Subjective Feeling better, still with cough leidy induced by nebs, intermittent wheezing, JOLLY walking to bathroom. JOLLY with talking a lot. No CP or leg swelling. Feels like he can go home tomorrow. Physical Exam Physical Exam: PHYSICAL EXAMINATION Last 24h vital signs reviewed, see documentation in flowsheet General: awake alert continues to look more well HEENT: Normocephalic, atraumatic, pupils round and equal, sclerae anicteric, no conjunctival injection, moist mucus membranes Lungs: mildly increased respiratory effort. dyspneic with full sentences. breath sounds much less coarse, exp wheezing bilaterally in bases, better air movement Heart: Regular rate and rhythm, systolic murmur. neck is large hard to assess for JVD Abdomen: Soft, nontender, nondistended. Bowel sounds present. Extremities: Warm, dry, well-perfused. minimal extremity edema. Neuro: Alert and oriented x 4, face symmetric, moves 4 extremities well Psych: Normal affect and behavior Results & Data Results & Data Vital Signs (Past 12 Hours) Vital Signs Temp Pulse Pulse Resp BP Pulse Ox O2 Del Method 12/18/22 08:17 36.4 C L 86 18 112/77 94 Nasal Cannula 12/18/22 07:07 89 18 94 Nasal Cannula 12/18/22 02:25 91 H 18 99 CPAP 12/18/22 02:25 91 H 14 99 12/17/22 22:23 96 H 12 99 CPAP 12/17/22 22:23 96 H 12 99 12/17/22 21:54 BiPAP O2 Flow Rate FiO2 12/18/22 08:17 2 12/18/22 07:07 2 12/18/22 02:25 30 12/18/22 02:25 30 12/17/22 22:23 30 12/17/22 22:23 30 12/17/22 21:54 PG Care Time/CCT Total # of Minutes Spent Total Time Spent with Patient: Total time spent is greater than 50% in coordination of care (as documented) at patient's floor/unit and/or counseling patient: Coding Level of Care Code 31741 SUB INP/OBS CARE 2/35MIN Diagnoses Acute respiratory failure with hypoxia J96.01 Heart failure with mid-range ejection fraction (HFmEF) I50.22 COVID-19 U07.1 Interstitial lung disease J84.9 Pulmonary hypertension I27.20 AF (atrial fibrillation) I48.91 Complex sleep apnea syndrome G47.31 Diabetes mellitus type 2, controlled E11.9 Essential hypertension I10 Hypertension type: essential hypertension Stage 3b chronic kidney disease N18.32 (9) Hypertension Hypertension type: essential hypertension Qualified Code(s): I10 - Essential (primary) hypertension
[2022-12-18] MEDS: PREGABALIN 100 MG CAP PO SCH ×3 (10:07→21:57)
[2022-12-18] MEDS: DOXYCYCLINE HYCLATE 100 MG CAP PO SCH ×2 (10:08→21:57)
[2022-12-18] MEDS: METOPROLOL SUCC 25MG EXT REL TAB PO SCH (10:08)
[2022-12-18] MEDS: TAMSULOSIN HCL 0.4 MG CAP PO SCH (10:09)
[2022-12-18] MEDS: ROSUVASTATIN CALCIUM 20 MG TAB PO SCH (10:09)
[2022-12-18] MEDS: RANOLAZINE 500 MG ER TAB PO SCH ×2 (10:09→21:57)
[2022-12-18] MEDS: predniSONE 20 MG TAB PO SCH (10:09)
--- NOTE | 2022-12-18 11:22 | Pharmacy Report ---
Pharmacy Glycemic Short Note 2 - Date of Service December 18, 2022 - Glycemic Short BSG Results (Last 24 hours): 12/17/22 12/17/22 12/18/22 16:33 20:36 06:42 Glucose 182 H POC Glucose 79 73 12/18/22 08:16 Glucose POC Glucose 172 H OUTPATIENT ANTIDIABETIC REGIMEN: * Lantus 30 units SQ HS * Novolog 10-12 units with meals * HbA1C= 7.3% (10/26/22) ASSESSMENT: 12/18/22 * Patient received total of 148 units of insulin yesterday, of which 50 units were basal insulin * Changed to prednisone 40 mg daily yesterday AM, likely seeing effects of solumedrol from previous day yesterday morning * BSGs much improving with dinner and HS. Will scale back slightly on basal this AM to 40 units daily. Plan to scale back slightly on novolog as well 12/17/22 * BSGs yesterday were 285-366/393-313/194-266 mg/dL. Patient received 131 units of insulin (60 units of basal and 71 units of basal) * BSGs today are 287-355. * Patient received Solu-Medrol 40 mg IV BID yesterday. Changed to prednisone 40 mg this AM. * For Lantus, continue 30 units BID. Extra 20 units at lunch for prednisone hyperglycemia. * Tighten CF/CR significantly since patient's BSGs trended upwards. (First tightened at lunch yesterday, dinner yesterday, and then again at breakfast today). BACKGROUND * Mr Babb is a 72 y/o M with T2DM who presents with hypoxia. Patient initially given Solu Medrol 125 mg IV x 1 in ER on 12/15 @1900. * Patient is now on Solu-Medrol 40 mg IV BID. * BSGs after 125 mg IV given were 290 @ HS and 317 @ 0100. * Patient given Lantus 30 units yesterday + Novolog 8 units. He received 9 extra units overnight. * Will start Lantus 30 units BID due to steroids. * Tighten up Novolog to weight-based stress of 3. * Due to elevated BSG @ lunch (366) will give IV bolus (K > 3.5) Recheck 2 hours after bolus given to ensure BSGs trending downwards PLAN FOR INPATIENT GLYCEMIC CONTROL: * Basal insulin * Lantus 40 units daily * Bolus insulin * NovoLog per scale ACHS or Q6hrs while NPO * Goal Range: Low 110 mg/dL - High 140 mg/dL * Correction Factor: 10 mg/dL/unit * Nutritional / Prandial insulin per carb ratio of 1 unit per 3 grams CHO consumed
[2022-12-18] MEDS: FENOFIBRATE NANOCRYSTALLIZED 48 MG TABLET PO SCH (12:29)
[2022-12-18] MEDS ORDERED: WARFARIN SOD 3 MG TAB PO SCH ×2 (16:00)
--- NOTE | 2022-12-18 16:58 | Pulmonology Progress Note ---
Date of Service December 18, 2022 Assessment & Plan (1) Interstitial lung disease: Plan: His chest x-rays appear relatively unchanged compared to prior. Perhaps there is mildly increased pulmonary vascular congestion. Recommend a trial of low- dose diuresis. Transition to PO steroids for a course of 10 to 14 days. Further ILD management per outpatient pulmonary provider. Down to 2L NC at this time. Would encourage out of bed to chair and ambulation as tolerated. Procalcitonin marginal. Sputum cultures pending. Ok to complete course of Doxy PO. COVID-19 was positive on admission which may be a persistent finding given his positive COVID-19 test as an outpatient. Unclear whether this is playing a significant role in his acute symptoms. Down to 2L NC at this time. (2) Bronchospasm with bronchitis, acute: Plan: Continue systemic corticosteroids and duo-neb therapy. (3) Hypoxia: Plan: Continue wean oxygen to maintain saturations of 89% or above given the underlying pulm hypertension. I suspect his hypoxemia is multifactorial related to congestive heart failure and perhaps a mild ILD flare. (4) Pulmonary edema: Plan: Recommended trial of diuresis as above. Will defer diuresis to primary team. Will repeat echocardiogram (order placed) to evaluate for worsening ejection fraction and RVSP. (5) Complex sleep apnea syndrome: Plan: Continue ASV with supplemental oxygen and his history of central sleep apnea. Asked that his bring his ASV PAP therapy from home. (6) Pulmonary hypertension: Plan: See comments above regarding obtaining echo. (7) COVID-19: Plan: Unclear role at this time. I would not recommend specific therapy for COVID-19 infection. Plan Thank you for allowing us to participate in the care of this patient. Pulmonary medicine will sign off at this time. Admission and Anticipated Discharge Date Admission Date: December 15, 2022 Subjective Patient seen and evaluated. He has persistent cough. He has been up and out of bed. He is feeling slightly better at this time. Review of Systems Review of Systems: Unchanged from admission Physical Exam Physical Exam: VITAL SIGNS - Vital signs and nursing notes were reviewed. GENERAL - 72-year-old male appearing his stated age who is in no acute distress. Communicates well with provider and answers questions appropriately. LUNGS - Auscultation reveals diminished breath sounds with slight wheezes noted. CARDIAC - RRR with S1/S2. No murmur, rubs, or gallops appreciated. PSYCH - A&Ox3 and cooperates fully with examiner. Pt is very pleasant and interacts well with examiner. Results & Data Results & Data Vital Signs (Past 12 Hours) Vital Signs Temp Pulse Resp BP Pulse Ox O2 Del Method O2 Flow Rate 12/18/22 15:45 18 92 Room Air 12/18/22 15:06 85 16 93 Room Air 12/18/22 14:42 36.4 C L 94 H 18 122/88 96 Nasal Cannula 1 12/18/22 11:13 106 H 18 100 Nasal Cannula 2 12/18/22 08:35 Nasal Cannula 2 12/18/22 08:17 36.4 C L 86 18 112/77 94 Nasal Cannula 2 12/18/22 07:07 89 18 94 Nasal Cannula 2 PG Care Time/CCT Total # of Minutes Spent Total Time Spent with Patient: Total time spent is greater than 50% in coordination of care (as documented) at patient's floor/unit and/or counseling patient: Coding Level of Care Code 85200 SUB INP/OBS CARE 235MIN Diagnoses Interstitial lung disease J84.9 Bronchospasm with bronchitis, acute J20.9 Hypoxia R09.02 Pulmonary edema J81.1 Complex sleep apnea syndrome G47.31 Pulmonary hypertension I27.20 COVID-19 U07.1
[2022-12-19 07:53] LABS: INR 2.1 (0.9-1.1)
[2022-12-19] MEDS: ALBUT/IPRATROP 3MG/0.5MG NEB 3 ML VIAL NEB SCH ×2 (07:59→12:44)
[2022-12-19] MEDS: INSULIN ASPART PER UNIT CHARGE SC SCH ×2 (08:39→12:22)
[2022-12-19] MEDS: LANTUS PER UNIT CHARGE SQ SCH (08:39)
[2022-12-19] MEDS: PREGABALIN 100 MG CAP PO SCH (08:49)
[2022-12-19] MEDS: FLUTICASONE FUROATE 100MCG 14 PUFFS/INHALER INH SCH (08:50)
[2022-12-19] MEDS: predniSONE 20 MG TAB PO SCH (08:51)
[2022-12-19] MEDS: METOPROLOL SUCC 25MG EXT REL TAB PO SCH (08:51)
[2022-12-19] MEDS: guaiFENesin SUGAR FREE 200 MG/10 ML UDC PO PRN (08:51)
[2022-12-19] MEDS: DOXYCYCLINE HYCLATE 100 MG CAP PO SCH (08:51)
[2022-12-19] MEDS: RANOLAZINE 500 MG ER TAB PO SCH (08:52)
[2022-12-19] MEDS: TAMSULOSIN HCL 0.4 MG CAP PO SCH (08:52)
[2022-12-19] MEDS: ROSUVASTATIN CALCIUM 20 MG TAB PO SCH (08:52)
[2022-12-19] MEDS: FENOFIBRATE NANOCRYSTALLIZED 48 MG TABLET PO SCH (11:06)
[2022-12-19] MEDS ORDERED: WARFARIN SOD 0.5 MG TAB PO SCH (16:00)
--- NOTE | 2022-12-19 17:23 | Discharge Summary ---
Date of Service December 19, 2022 Admission HPI Per Admitting Provider Vito Babb is a 72-year-old male with a past medical history of type II DM, A-fib on warfarin, CKD, HTN, hyperlipidemia, CAD, ILD, and complex sleep apnea syndrome on HSASV with oxygen bleed 3 L/min who presented to the [facility] ED on 12/15 with complaints of cough, SOB, JOLLY at home over the past 48 hours. He reportedly tested positive for Covid 19 2 weeks ago but had mild symptoms and believed he had completely recovered. In the ED today he was noted to be hypoxic at 83% on RA but otherwise stable. Labs were significant for a leukocytosis of 11 with neutrophile predominance of 9, subtherapeutic INR of 1.4, Cr of 1.7 (at baseline per last Nephrology note), total bili of 1.7 with all other LFT's WNL, BNP of 186 (lower than previous draws), and full respiratory biofire positive for covid 19. Chest xray was read as "1. Cardiomegaly with pulmonary vascular congestion. 2. There are asymmetric bilateral airspace opacities, greatest in the right upper lobe. This could represent mild pulmonary edema. Correlate clinically for evidence of a superimposed infectious/inflammatory pneumonitis. Radiographic follow-up to resolution is recommended.". Prior to admission the patient was given a dose of Ceftriaxone, doxycycline, an albuterol treatment, and 125 mg IV methylprednisolone. At the time of the exam the patient sitting in bed in no acute distress with his sitting bedside, history was obtained from both. He confirms that he tested positive for covid 19 approximately 2 weeks ago. He had very mild symptoms including slight cough and congestion but was otherwise fine. Approximately 2 days ago he started to develop his current symptoms. He has been using his rescue inhaler at home without relief. He has been coughing up yellow- green sputum over this time and has been significantly SOB with exertion. He denies recent fever, chest pain, hemoptysis, abd pain, nausea, vomiting, diarrhea, dysuira, hematuria, melena, LE swelling, and recent trauma. We discussed code status, he is a full code and would want his to make medical decisions for him. Principal Diagnosis Acute on chronic respiratory failure, multifactorial, related to COVID-19, bronchospasm, mild ILD flare, acute on chronic diastolic heart failure Discharge Exam PHYSICAL EXAMINATION Last 24h vital signs reviewed, see documentation in flowsheet General: awake alert continues to look more well HEENT: Normocephalic, atraumatic, pupils round and equal, sclerae anicteric, no conjunctival injection, moist mucus membranes Lungs: mildly increased respiratory effort. dyspneic with full sentences. breath sounds much less coarse, exp wheezing bilaterally in bases, better air movement Heart: Regular rate and rhythm, systolic murmur. neck is large hard to assess for JVD Abdomen: Soft, nontender, nondistended. Bowel sounds present. Extremities: Warm, dry, well-perfused. minimal extremity edema. Neuro: Alert and oriented x 4, face symmetric, moves 4 extremities well Psych: Normal affect and behavior Discharge Data Allergies Allergy/AdvReac Type Severity Reaction Status Date / Time dulaglutide [From [facility]] AdvReac Intermediate Diarrhea , Verified 12/15/22 19:35 nausea Consultations 12/15/22 19:02 ED Decision to Admit Stat 12/15/22 19:50 Consult Pulmonology Routine Ordered Studies Chest X-Ray 12/15/22 16:17 TWO VIEW CHEST CLINICAL HISTORY: Atypical chest pain. Cough and dyspnea. FINDINGS: PA and lateral chest radiographs are compared to study performed earlier the same day 12/15/2022. There is evidence of previous cardiac valve surgery. The heart is enlarged noting atherosclerotic calcification of the thoracic aorta. There is pulmonary vascular congestion. Asymmetric bilateral airspace opacities are similar to previous. This is greatest in the right upper lobe. No large pleural effusion or pneumothorax is seen. The skeletal structures are osteopenic. The bony thorax appears intact. Surgical anchors are noted in the right humeral head. IMPRESSION: 1. Cardiomegaly with pulmonary vascular congestion. 2. There are asymmetric bilateral airspace opacities, greatest in the right upper lobe. This could represent mild pulmonary edema. Correlate clinically for evidence of a superimposed infectious/inflammatory pneumonitis. Radiographic follow-up to resolution is recommended. ACT 112: Negative or not required by law. Electronically signed by: Bharathi Whyte M.D. 12/15/2022 4:48 PM 12/19/22 12/19/22 12/19/22 Range/Units 12:08 08:07 06:27 PT 22.0 H (9.0-12.0) Seconds INR 2.1 H (0.9-1.1) POC Glucose 140 H 133 H (70-99) mg/dl 12/18/22 Range/Units 21:30 PT (9.0-12.0) Seconds INR (0.9-1.1) POC Glucose 174 H (70-99) mg/dl Hospital Course (1) Acute respiratory failure with hypoxia: Presented with dyspnea, cough, wheezing and O2 sat 85% on room air. Typically uses O2 only nocturnally. Multifactorial - Late COVID-19 (started 10d [employer]), bronchospasm, possibly mild ILD flare, acute on chronic diastolic heart failure, unlikely pneumonia - serial procalcitonin negative -typically uses 3L O2 only at night with his bipap. Was 85% on RA at presentation. -follows with Dr. Gomez for ILD of unclear etiology, multifactorial restrictive lung disease, and complex sleep apnea, recent PFT with mod-severe restrictive physiology and reduced DLCO. Pulmonary HTN with hx MS s/p annuloplasty. home inhaler is arnuity ellipta 50 mcg qD -CXR with cardiomegaly, pulmonary vascular congestion and asymmetric airspace opacities -presented too late in clinical course to benefit from COVID-specific treatment such as remdesivir -pulmonary consulted this admission -initially started on broad-spectrum ABX but serial procalcitonin were negative so they were stopped, complete course of oral doxycycline -diuresed with IV lasix and did have improvement in hypoxia and dyspnea. TTE obtained (after diuresis) and euvolemic -treated with steroids - slow prednisone taper on discharge over 15 days -also treated with bronchodilators, guaifenasin -much improved by day of discharge, sats 90-92% on room air -follow up in pulmonary clinic (2) Interstitial lung disease: (3) COVID-19: (4) Heart failure with mid-range ejection fraction (HFmEF): was mildly volume overloaded. resumed usual lasix 40 mg daily on discharge but instructed him to monitor his weight and edema, call if worsening and consider increase in lasix dose (5) COPD (chronic obstructive pulmonary disease): (6) Complex sleep apnea syndrome: Continue ASV with supplemental oxygen and his history of central sleep apnea. Uses nighttime home O2 (7) Bronchospasm with bronchitis, acute: Continue systemic corticosteroids and duo-neb therapy. (8) Pulmonary edema: (9) Pulmonary hypertension: See comments above regarding obtaining echo. 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: Total Time Total Time Spent Total Time Spent (In Minutes): 50 minutes spent coordinating care for discharge Discharge Plan Discharge Items Patient Disposition: Home - Self-Care Reason For Visit: HYPOXIC RESPIRATORY FAILURE Discharge Diagnosis: acute respiratory failure multifactorial, late acute COVID-19, bronchospasm, mild ILD flare, acute on chronic diastolic heart failure Activity: Resume your previous activity Non-emergency contact: Primary Care Provider and Administrative And Program Specialist Call non-emergency contact if: you have any medication questions and your symptoms worsen Follow-up/Referrals: Marco Velasco MD [Primary Care Provider] - 12/28/22 11:00 am (APPOINTMENT WITH [facility]) Lloyd Gomez MD [Physician] - Diet: Low Sodium (2gm) Addtl Attending Provider Instructions: You had breathing trouble and low oxygen level - this was caused by a combination of things: -COVID-19 -fluid overload - breathing improved with diuretics - make sure to follow a low salt diet, monitor your weight every morning on a bathroom scale, call your doctor if you gain more than 3 pounds overnight or 5 pounds in a week - you may require increase in diuretic (lasix/furosemide) dose -bronchospasm and flare of lung disease - treated with antibiotic (doxycycline) and prednisone -continue your inhalers, nighttime oxygen and breathing machine -follow up with Dr. Gomez ideally within 2 weeks Pending Studies at Discharge: No Stand-Alone Forms: [facility] ZIIBRA, Smoking Cessation Medications and DC Order Prescriptions: New doxycycline hyclate 100 mg Capsule 100 mg PO BID Qty: 3 0RF prednisone 10 mg tablet See Taper PO DIRECTED Qty: 18 0RF Taper: Taper, Blank 20 mg DAILY for 5 Days 10 mg DAILY for 5 Days 5 mg DAILY for 5 Days Rx Instructions: see taper instructions (DME) Spacer for Inhaler Misc See Rx Instructions .Route Qty: 1 0RF Rx Instructions: As directed Continued (DME) Oxygen Home Liters Per Minute See Rx Instructions .MEDSUPPLY Qty: 1 0RF Rx Instructions: 2 Liters per minute continuous (DME) Dexcom G6 Sensor Device See Rx Instructions .Route Qty: 3 11RF Rx Instructions: use for blood sugar checks (DME) Dexcom G6 Transmitter Device See Rx Instructions .Route Qty: 1 3RF Rx Instructions: use for blood sugars change out every 90 days rosuvastatin [Crestor] 20 mg tablet 20 mg PO QAM Qty: 90 3RF Arnuity Ellipta 50 mcg/actuation blister with device 1 inh INH QAM Qty: 90 3RF (DME) pen needle, diabetic [BD Reyna 2nd Gen Pen Needle] 32 gauge x 5/32" needle See Rx Instructions .Route Qty: 200 8RF Rx Instructions: use for insulin injection up to six times daily pregabalin 100 mg capsule 100 mg PO TID Qty: 270 3RF ranolazine 1,000 mg tablet extended release 12 hr 1,000 mg PO Q12H Qty: 180 3RF furosemide 40 mg tablet 40 mg PO QAM Qty: 90 3RF Rx Instructions: takes 6 days per week; not on Sundays fenofibrate nanocrystallized 48 mg tablet 48 mg PO QDL Qty: 90 3RF insulin aspart U-100 [Novolog FlexPen U-100 Insulin] 100 unit/mL (3 mL) insulin pen 10 - 20 unit subcut TID Qty: 15 5RF Rx Instructions: as directed before meals tamsulosin 0.4 mg capsule 0.4 mg PO DAILY Qty: 30 1RF multivitamin [Daily Multi-Vitamin] Tablet 1 tab PO QAM ascorbic acid (vitamin C) 1,000 mg capsule 1 g PO DAILY Qty: 90 0RF albuterol sulfate 90 mcg/actuation HFA aerosol inhaler 1 - 2 puff inhalation Q4H PRN (Reason: shortness of breath) Qty: 18 3RF insulin degludec [Tresiba FlexTouch U-200] 200 unit/mL (3 mL) insulin pen 30 unit subcut HS cholecalciferol (vitamin D3) 1,000 unit (25 mcg) tablet 1,000 units PO QDL cyanocobalamin (vitamin B-12) 100 mcg tablet 1,000 mcg PO Q2D docusate sodium 100 mg capsule 200 mg PO DAILY calcium carbonate [Calcium 600] 600 mg calcium (1,500 mg) tablet 600 mg PO DAILY cranberry 400 mg capsule 400 mg PO DAILY Rx Instructions: administer with a meal nitroglycerin 0.3 mg tablet, sublingual 0.3 mg sublingual Q5M PRN (Reason: chest pain) Qty: 10 0RF Rx Instructions: do not exceed 3 doses per episode metoprolol succinate 50 mg tablet extended release 24 hr 75 mg PO DAILY Qty: 45 5RF warfarin 3 mg tablet 0 mg PO DIRECTED Protocol: Dose Management Condition: Wednesday Dose/Route: 1.5 mg Instruction: 0.5 x 3 mg tablets Condition: Wednesday Dose/Route: 3 mg Instruction: 1 x 3 mg tablet Condition: Wednesday Dose/Route: 1.5 mg Instruction: 0.5 x 3 mg tablets Condition: Wednesday Dose/Route: 1.5 mg Instruction: 0.5 x 3 mg tablets Condition: Dose/Route: 1.5 mg Instruction: 0.5 x 3 mg tablets Condition: Wednesday Dose/Route: 3 mg Instruction: 1 x 3 mg tablet Condition: Wednesday Dose/Route: 1.5 mg Instruction: 0.5 x 3 mg tablets Protocol Text: Adjustment Start Date: Wednesday12/11/22 INR Value: 1.9 INR Date: 12/11/22 Recheck Date: 12/18/22 Rx Instructions: PER ANTI COAG. omega 3-xqt-ayd-fish oil [Fish Oil] 1,000 mg (120 mg-180 mg) Capsule 1 cap PO QAM Discharge Orders: Discharge Order (Routine); Ordered 12/19/22 Ordered By: Brigette Teresa/Other Patient Handouts: 2019 Novel Coronavirus Admission Data Admit Date/Time: 12/15/22 19:04 Attending Provider: Brigette Nuñez Admit Provider: Kal Banda Primary Care Provider: Marco Velasco Other Providers: Kal Banda; Kwadwo Bravo Other Interventions: Discharge Summary Assessment (RN) Last Done: 12/19/22 10:44 Coding Level of Care Code 97769 INP/OBS DISCH >30 MIN Diagnoses Acute respiratory failure with hypoxia J96.01 Interstitial lung disease J84.9 COVID-19 U07.1 Heart failure with mid-range ejection fraction (HFmEF) I50.22 COPD (chronic obstructive pulmonary disease) J44.9 Complex sleep apnea syndrome G47.31 Bronchospasm with bronchitis, acute J20.9 Pulmonary edema J81.1 Pulmonary hypertension I27.20 Type 2 diabetes mellitus with complications E11.8 AF (atrial fibrillation) I48.91 Stage 3b chronic kidney disease N18.32 BPH with obstruction/lower urinary tract symptoms N40.1; N13.8 Abdominal aortic aneurysm dissection I71.02
== END 2022-12-19 13:30 | disposition home or self-care (01) | DRG 196 ==
LOC: ED 16:03 → SUATTDRO 19:04 → EDINP 19:04 → 2S 20:23 → 3E 12-17 14:57

== ENCOUNTER 2023-10-30 15:41 | Inpatient (IN) ==
[2023-10-30] MEDS: SODIUM CHLORIDE 0.9% 500 ML IV SCH (16:19)
[2023-10-30 16:31] LABS: Basophils # (auto) 0.04 K/uL (0.00-0.20); Basophils % (auto) 0.4 %; Eosinophils # (auto) 0.25 K/uL (0.00-0.50); Eosinophils % (auto) 2.5 %; Hematocrit (blood only) 44.6 % (42.0-52.0); Immature Granulocytes # (auto) 0.07 K/uL (0.01-0.20); Immature Granulocytes % (auto) 0.7 %; Lymphocytes # (auto) 1.43 K/uL (1.20-3.40); Lymphocytes % (auto) 14.2 %; Mean Corpuscular Hemoglobin 31.6 pg (25.0-34.0); Mean Corpuscular Hgb Conc 33.6 g/dL (32.0-36.0); Mean Corpuscular Volume 94.1 fL (80.0-100.0); Mean Platelet Volume 9.8 fL (9.4-12.4); Monocytes # (auto) 0.91 K/uL (0.11-0.59); Neutrophils # (auto) 7.38 K/uL (1.40-6.50); Neutrophils % (auto) 73.2 %; Platelet Count 314 K/uL (130-400); RDW Coefficient of Variation 13.7 % (11.5-14.5); RDW Standard Deviation 47.8 fL (36.4-46.3); Red Blood Count 4.74 M/uL (4.70-6.10); White Blood Count 10.08 K/ul (4.8-10.8)
--- NOTE | 2023-10-30 16:34 | Emergency Department Note ---
Impression & Plan Hypotension, Hypoxia, SOB (shortness of breath), Wheezing, Rhinovirus infection ED Provider Note NAME: MARISEL ZAVALA AGE: 73 SEX: M : 1950 ARRIVES VIA: Walk-In INFORMANT: [Patient] ED PROVIDER(S): [Bharathi Jacobo MD] CHIEF COMPLAINT: Hypotension, short of breath HISTORY OF PRESENT ILLNESS: The patient is a 73-year-old male with a history of COPD and A-fib. The patient has been sick with a cold for about a week. He has had a productive cough, wheezing, some shortness of breath and weakness. There has been no fever. Patient went to urgent care today and his O2 saturation with a short amount of ambulation was 88%. His blood pressure was low in the 90s systolic. He was sent for evaluation. A COVID test was done before leaving and it was negative. The patient denies vomiting or diarrhea, no sick contacts. He has not used a nebulizer/albuterol treatment yet today. PMHx/PSHx/Social Hx: See Below PHYSICAL EXAM: GENERAL: Patient is in no acute distress. HEENT: No acute trauma, normocephalic atraumatic, mucous membranes moist, no nasal congestion. NECK: No stridor, no adenopathy, no meningismus, trachea is midline. LUNGS: Diminished breath sounds bilaterally with wheezing bilaterally. There is no respiratory distress. HEART: Irregular rhythm, mildly tachycardic, no murmurs. ABDOMEN: Soft, nontender, no peritonitis. EXTREMITIES: No cyanosis, full range of motion of all the joints without pain or difficulty. Mild bilateral pedal edema. NEUROLOGIC: Oriented x 3, no acute motor or sensory deficits, no focal weakness. SKIN: No jaundice, no diaphoresis. DIFFERENTIAL DIAGNOSIS: Bronchitis or pneumonia, exacerbation of COPD, COVID-19, viral illness, [place], among others. EMERGENCY DEPARTMENT PROCEDURES: MEDICAL DECISION MAKING: There is no leukocytosis or concerning anemia. There is a normal platelet count. INR is elevated, this is consistent with his Coumadin use. There was renal insufficiency present, his creatinine was slightly above his typical baseline. Lactic acid level was elevated consistent with infection versus some dehydration. Repeat lactic acid value after hydration and care in the ER showed improvement. There was no concerning liver enzyme elevation. The patient appeared to be in a euthyroid state. ECG showed atrial fibrillation, no ischemic change. Cardiac enzyme testing x 1 was not consistent with acute cardiac injury. Urinalysis showed some hematuria, no infection. Respiratory bio fire was positive for rhinovirus. Chest x-ray did not show focal infiltrate or CHF. On exam, patient was somewhat hypotensive, he was wheezing. The patient received 1 L of IV saline. He received IV Solu-Medrol and IV ceftriaxone. He was given a DuoNeb. The patient's vital signs seem to be improved since treatment. He is more comfortable. Given the wheezing, the hypoxia, the hypotension, the patient requires a hospital stay. He appears to have a rhinovirus infection which has flared his COPD. I spoke with the patient and case management. The on-call hospitalist was consulted. Prior/Outside records/notes reviewed: Today's notes from urgent care describing his presentation, the staff concerns and the need for transfer to the ED. ECG per my interpretation: Indication was shortness of breath. The ECG shows atrial fibrillation with a rate of 123. There was some nonspecific ST change. There was an incomplete right bundle branch block. There was no acute ST elevation, no PVCs. The QTc was 449. Continuous Cardiac Monitoring per my interpretation: An order was placed for continuous cardiac monitoring. The monitor shows a rate of 109 with atrial fibrillation. Imaging/x-ray results per my interpretation: Chest x-ray shows cardiomegaly. No CHF or focal pneumonia. Chronic Medical/Social conditions affecting care: History of A-fib, history of COPD, advanced age. Care/Management discussed with: Case management, the on-call hospitalist. Level of care consideration(s): After review of the information above and other included data: --I believe the patient requires escalation of care to admission Critical Care Note: I have personally spent 38 minutes of critical care time in the direct management of this patient. This includes bedside care, interpretation of diagnostic studies, and testing, discussion with consultants, patient, and family members, and other required patient management activities. This 38 minutes is in excess of all separately billable procedures. DISPOSITION: Admission Past Med/Surg History Problem List (Updated 10/30/23 @ 23:13 by Bharathi Jacobo MD) Rhinovirus infection (Acute) Wheezing (Acute) SOB (shortness of breath) (Acute) Hypoxia (Acute) Hypotension (Acute) Elevated serum lactate dehydrogenase Enterovirus infection Atrial fibrillation with RVR History of colon polyps BMI 40.0-44.9, adult COPD (chronic obstructive pulmonary disease) (Acute) Fatigue Enterococcus UTI Pancreatic cyst Heart failure with mid-range ejection fraction (HFmEF) IPMN (intraductal papillary mucinous neoplasm) CAP (community acquired pneumonia) Status post right knee replacement (~08/2021) Encounter for pre-operative examination History of mitral valve replacement BPH with obstruction/lower urinary tract symptoms Obesity Pulmonary hypertension Moderate 09/2020 echo, "suspected secondary to elevated end-diastolic pressure, obesity, restrictive lung disease, hypoxemia and sleep disordered breathing: Would not recommend consideration for any pulmonary vasodilators at this point" follows with [facility]; Right heart cath 07/11/21: Normal left and right-sided filling pressures. Normal pulmonary artery pressure. 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 (Chronic) Dysesthesia (Chronic) CKD stage 3 due to type 2 diabetes mellitus (Chronic) follows with [facility] Baseline creatinine 1.7-2.0 per nephrology notes Chronic diastolic CHF (congestive heart failure) (Chronic) Anemia, unspecified (Acute 11/30/12) AF (atrial fibrillation) (Chronic) REASON FOR COUMADIN Abdominal aortic aneurysm dissection (Chronic) "infrarenal aortic dissection extending into right common iliac and right proximal mid external iliac arteries": Annual surveillance (stable), monitored by [facility] vascular surgery Background diabetic retinopathy associated with type 2 diabetes mellitus (Chronic) Coronary atherosclerosis of coquille coronary vessel (Chronic) Severe 80-90% apical LAD disease. Moderate non-obstructive proximal-mid LAD (FFR 0.83). Mild-moderate multivessel disease- 30-40% proximal OM1, mid circumflex, mid RCA 10/12/18 cath: Distal LAD disease is low risk involving small vessel at the apex. Recommend trial of additional antianginal therapy, start Imdur. If persistent symptoms could consider POBA +/- stent to LAD. 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) Vitamin B12 deficiency (Chronic) Vitamin D deficiency (Chronic) Chronic anticoagulation (Chronic) Medical History History of transesophageal echocardiography (JAYJAY) (12/16/22) at [facility] Osteoarthritis Degenerative disc disease Chronic back pain History of COVID-19 11/2022: treated at [facility] inpatient for respiratory failure Hyperlipidemia Hypertension On anticoagulant therapy History of stroke (2019) embolic, 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 CVA post cardiac catheterization, mild residual aphasia Type 2 diabetes mellitus IDDM Pancreatic cyst pt unaware Hx of pulmonary hypertension Moderate 09/2020 echo, "suspected secondary to elevated end-diastolic pressure, obesity, restrictive lung disease, hypoxemia and sleep disordered breathing: Would not recommend consideration for any pulmonary vasodilators at this point" follows with [facility]; Right heart cath 07/11/21: Normal left and right-sided filling pressures. Normal pulmonary artery pressure. IPMN (intraductal papillary mucinous neoplasm) pt unaware Interstitial lung disease monitoring per [facility] Coronary atherosclerosis Severe 80-90% apical LAD disease. Moderate non-obstructive proximal-mid LAD (FFR 0.83). Mild-moderate multivessel disease- 30-40% proximal OM1, mid circumflex, mid RCA 10/12/18 cath: Distal LAD disease is low risk involving small vessel at the apex. Recommend trial of additional antianginal therapy, start Imdur. If persistent symptoms could consider POBA +/- stent to LAD. Chronic obstructive pulmonary disease Sleep apnea ASV machine with 2L supplemental oxygen nightly-compliant, follows with [facility] Hx of pulmonary edema (12/2022) treated at [facility] Hx of renal calculi History of community acquired pneumonia 05/2022, treated at [facility] BPH (benign prostatic hyperplasia) Chronic kidney disease Stage 3 follows with [facility] Baseline creatinine 1.7-2.0 per nephrology notes History of cardioversion AAA (abdominal aortic aneurysm) "infrarenal aortic dissection extending into right common iliac and right proximal mid external iliac arteries": Annual surveillance (stable), monitored by [facility] vascular surgery History of blood transfusion during mitral valve repair per pt Diabetic polyneuropathy B/L LE Atrial fibrillation follows with [facility] Gastroparesis History of anemia Bilateral renal cysts pt unaware Congestive heart failure EF 50-55% 09/2020 echo Restrictive lung disease Surgical History S/P epidural steroid injection S/P rotator cuff repair bilateral History of total right knee replacement (TKR) History of cystoscopy Left Ureteronephroscopy 08/24/2019: Grade 3 view, MAC#3.0, ETT#8.0. No issues per anesthesia postop progress note. History of colonoscopy History of tooth extraction History of cardiac cath 2021 - no stents at [facility] 2018 - no stents at [facility] History of total left knee replacement History of mitral valve [facility] History of surgical removal of pilonidal cyst Family History Mother Colon cancer Diabetes Grandmother Multiple sclerosis Father Diabetes Coronary heart disease Myocardial infarction Grandfather Stroke Sister Diabetes Hypertension Brother Diabetes Hypertension Son Depression Hypertension Other No family history of adverse response to anesthesia Denies family history of Ovarian cancer Prostate cancer Breast cancer Social History Smoking Status: Never smoker Second Hand Exposure: No; Do You Dip or Chew Tobacco: No; Hx Alcohol Use: No Hx Substance Use: No Preferred Language: Uzbek Communication Ability: Effective Visual Impairment: No Limitations Hearing Ability: Normal Sash Repairer Required: No Beliefs That Will Affect Care: None marital status: Current Living Situation: Spouse Current Living Situation Comment: live with and grown children current occupational status: retired current occupation: Former [employer] How many Children do You have: 2 Feels Safe at Home: Yes Childhood Exposure to Second-Hand Smoke: No Dental Care, Regularly: No Physical Activity Frequency: Does not Exercise Seatbelt Use: always Sunscreen Use: No Assistive Devices: Cane, Glasses, Oxygen - at Night and Walker Allergies Allergies Allergy/AdvReac Type Severity Reaction Status Date / Time dulaglutide [From Trulicity] AdvReac Intermediate Diarrhea , Verified 10/30/23 19:08 nausea Home Meds Home Medications Medication Instructions Recorded Confirmed multivitamin (Daily Multi-Vitamin 1 tab PO QAM 03/15/20 10/30/23 tablet) omega 7-kbs-aym-fish oil 1,000 mg 1 cap PO QAM 06/10/21 10/30/23 (120 mg-180 mg) capsule (Fish Oil) cyanocobalamin (vitamin B-12) 100 100 mcg PO 4XWK 06/09/22 10/30/23 mcg tablet docusate sodium 100 mg capsule 200 mg PO BID 06/09/22 10/30/23 warfarin 3 mg tablet 3 mg PO DIRECTED 12/15/22 10/30/23 ascorbic acid (vitamin C) 1,000 mg 1 g PO 3XWK 08/18/23 10/30/23 capsule cholecalciferol (vitamin D3) 50 50 mcg PO QDL 08/18/23 10/30/23 mcg (2,000 unit) capsule (Vitamin D3) losartan 25 mg tablet 25 mg PO QPM 08/18/23 10/30/23 metoprolol succinate 50 mg 75 mg PO QPM 08/18/23 10/30/23 tablet,extended release 24 hr tamsulosin 0.4 mg capsule 0.4 mg PO QAM 08/18/23 10/30/23 Previous Rx's Medication Instructions Recorded Oxygen Home #1 ea 08/27/21 blood-glucose sensor (Dexcom G6 #3 ea 09/04/21 Sensor device) blood-glucose transmitter (Dexcom #1 ea 09/04/21 G6 Transmitter device) albuterol sulfate 90 mcg/actuation 1 - 2 puff inhalation Q4H PRN 06/04/22 aerosol inhaler shortness of breath #18 grams nitroglycerin 0.3 mg sublingual 0.3 mg sublingual Q5M PRN chest 06/09/22 tablet pain #10 tabs furosemide 40 mg tablet 40 mg PO QAM #90 tabs 09/07/22 Spacer for Inhaler #1 ea 12/19/22 pen needle, diabetic 32 gauge x #200 ea 02/24/23" (BD Reyna 2nd Gen Pen Needle) insulin aspart U-100 100 unit/mL 10 - 20 unit (0.1 - 0.2 mL) subcut 05/19/23 (3 mL) subcutaneous pen (Novolog TID #15 mL FlexPen U-100 Insulin aspart) Tresiba FlexTouch U-200 200 32 unit (0.16 mL) subcut HS #9 mL 06/23/23 unit/mL (3 mL) subcutaneous pen (insulin degludec) pregabalin 100 mg capsule 100 mg PO TID #270 caps 07/16/23 fluticasone furoate 50 1 inh inhalation QAM #90 ea 09/02/23 mcg/actuation blister powder for inhalation (Arnuity Ellipta) empagliflozin 10 mg tablet 10 mg PO DAILY #90 tabs 09/04/23 (Jardiance) ranolazine 1,000 mg 1,000 mg PO Q12H #180 tabs 09/27/23 tablet,extended release,12 hr fenofibrate nanocrystallized 48 mg 48 mg PO QDL #90 tabs 10/19/23 tablet Results & Data (ED) Vital Signs Vital Signs - 24 hr 10/30/23 15:46 10/30/23 16:23 10/30/23 16:23 Temperature 36.8 C Temperature Source Temporal Artery Scan Pulse Rate 95 H 117 H Pulse Rate from SpO2 Sensor Pulse Rhythm Respiratory Rate 21 Respiratory Depth Normal Blood Pressure 115/70 Blood Pressure Mean 85 Pulse Oximetry 94 95 Oxygen Delivery Method Room Air Room Air Oxygen Flow Rate 0 Sepsis Recent Fever Within 48 Hours No Sepsis New/Unexplained Change in Mental Status N/A Sepsis Action Taken by Nursing No Action Required 10/30/23 16:25 10/30/23 16:30 10/30/23 17:01 Temperature Temperature Source Pulse Rate 113 H 104 H Pulse Rate from SpO2 Sensor Pulse Rhythm Regular Respiratory Rate 24 Respiratory Depth Blood Pressure 114/66 94/59 L Blood Pressure Mean 79 64 Pulse Oximetry 94 94 Oxygen Delivery Method Room Air Room Air Oxygen Flow Rate Sepsis Recent Fever Within 48 Hours Sepsis New/Unexplained Change in Mental Status Sepsis Action Taken by Nursing 10/30/23 17:30 10/30/23 17:30 10/30/23 17:30 Temperature Temperature Source Pulse Rate 103 H Pulse Rate from SpO2 Sensor Pulse Rhythm Respiratory Rate Respiratory Depth Blood Pressure 115/65 115/65 115/65 Blood Pressure Mean 81 71 71 Pulse Oximetry 93 Oxygen Delivery Method Oxygen Flow Rate Sepsis Recent Fever Within 48 Hours Sepsis New/Unexplained Change in Mental Status Sepsis Action Taken by Nursing 10/30/23 17:30 10/30/23 17:30 10/30/23 17:30 Temperature Temperature Source Pulse Rate Pulse Rate from SpO2 Sensor Pulse Rhythm Respiratory Rate Respiratory Depth Blood Pressure 115/65 115/65 115/65 Blood Pressure Mean 71 71 71 Pulse Oximetry Oxygen Delivery Method Oxygen Flow Rate Sepsis Recent Fever Within 48 Hours Sepsis New/Unexplained Change in Mental Status Sepsis Action Taken by Nursing 10/30/23 17:30 10/30/23 17:30 10/30/23 17:30 Temperature Temperature Source Pulse Rate Pulse Rate from SpO2 Sensor Pulse Rhythm Respiratory Rate Respiratory Depth Blood Pressure 115/65 115/65 115/65 Blood Pressure Mean 71 71 71 Pulse Oximetry Oxygen Delivery Method Oxygen Flow Rate Sepsis Recent Fever Within 48 Hours Sepsis New/Unexplained Change in Mental Status Sepsis Action Taken by Nursing 10/30/23 17:30 10/30/23 17:57 10/30/23 18:02 Temperature Temperature Source Pulse Rate 94 H Pulse Rate from SpO2 Sensor 96 H Pulse Rhythm Respiratory Rate 21 Respiratory Depth Blood Pressure 115/65 122/56 L Blood Pressure Mean 71 72 Pulse Oximetry 92 Oxygen Delivery Method Oxygen Flow Rate Sepsis Recent Fever Within 48 Hours Sepsis New/Unexplained Change in Mental Status Sepsis Action Taken by Nursing 10/30/23 18:02 10/30/23 18:02 10/30/23 18:06 Temperature Temperature Source Pulse Rate 96 H Pulse Rate from SpO2 Sensor Pulse Rhythm Respiratory Rate 18 Respiratory Depth Blood Pressure 122/56 L 122/56 L Blood Pressure Mean 72 72 Pulse Oximetry Oxygen Delivery Method Oxygen Flow Rate Sepsis Recent Fever Within 48 Hours Sepsis New/Unexplained Change in Mental Status Sepsis Action Taken by Nursing 10/30/23 18:30 10/30/23 18:31 Temperature Temperature Source Pulse Rate 83 Pulse Rate from SpO2 Sensor 88 Pulse Rhythm Respiratory Rate 24 Respiratory Depth Blood Pressure 122/93 Blood Pressure Mean 101 Pulse Oximetry 95 Oxygen Delivery Method Oxygen Flow Rate Sepsis Recent Fever Within 48 Hours Sepsis New/Unexplained Change in Mental Status Sepsis Action Taken by Retirement Medications Current Medication List: was personally reviewed by nj Laboratory Data Attestation: I reviewed the patient's lab results. 10/30/23 16:05 10/30/23 16:05 Lab Results 10/30/23 10/30/23 10/30/23 Range/Units 16:05 16:06 16:06 WBC 10.08 (4.8-10.8) K/ul RBC 4.74 (4.70-6.10) M/uL Hgb 15.0 (14.0-18.0) g/dl Hct 44.6 (42.0-52.0) % MCV 94.1 (80.0-100.0) fL MCH 31.6 (25.0-34.0) pg MCHC 33.6 (32.0-36.0) g/dL RDW Std Deviation 47.8 H (36.4-46.3) fL RDW Coeff of Romulo 13.7 (11.5-14.5) % Plt Count 314 (130-400) K/uL MPV 9.8 (9.4-12.4) fL Immature Gran % (Auto) 0.7 % Neut % (Auto) 73.2 % Lymph % (Auto) 14.2 % Blaine % (Auto) 9.0 % Eos % (Auto) 2.5 % Baso % (Auto) 0.4 % Neut # (Auto) 7.38 H (1.40-6.50) K/uL Lymph # (Auto) 1.43 (1.20-3.40) K/uL Blaine # (Auto) 0.91 H (0.11-0.59) K/uL Eos # (Auto) 0.25 (0.00-0.50) K/uL Baso # (Auto) 0.04 (0.00-0.20) K/uL Immature Gran # (Auto) 0.07 (0.01-0.20) K/uL PT (9.0-12.0) Seconds INR (0.9-1.1) APTT (21-31) Seconds PTT Ratio Sodium 140 (136-145) mmol/L Potassium 4.0 (3.5-5.1) mmol/L Chloride 102 (98-107) mmol/L Carbon Dioxide 27 (21-32) mmol/L Anion Gap 11 (3-11) BUN 33 H (6-23) mg/dl Creatinine 1.81 H (0.6-1.4) mg/dl Est Cr Clr Drug Dosing 40.6 ml/min Est GFR ( Amer) 42.0 ml/min Est GFR (Non-Af Amer) 36.3 ml/min BUN/Creatinine Ratio 18.2 (10-20) Glucose 256 H (70-99(Fasting)) mg/dl Lactate (0.4-2.0) mmol/L Calcium 9.6 (8.6-10.3) mg/dl Magnesium (1.7-2.4) mg/dl Total Bilirubin 0.6 (0.2-1.0) mg/dl AST 19 (13-39) U/L ALT 13 (7-52) U/L Alkaline Phosphatase 60 (34-104) U/L Troponin I High Sens (0-20) pg/ml Total Protein 7.4 (6.0-8.3) gm/dl Albumin 4.3 (3.4-5.0) gm/dl Globulin 3.1 (2.5-4.0) gm/dl Albumin/Globulin Ratio 1.4 (0.9-2) TSH (0.300-4.500) uIu/ml Urine Color Urine Appearance (Clear) Urine pH (4.5-7.5) Ur Specific [place] (1.000-1.030) Urine Protein (Negative) Urine Glucose (UA) (Negative) Urine Ketones (Negative) Urine Blood (Negative) Urine Nitrite (Negative) Urine Bilirubin (Negative) Urine Urobilinogen (Negative) Ur Leukocyte Esterase (Negative) Urine WBC (Auto) (0-5) /hpf Urine RBC (Auto) (0-2) /hpf U Hyaline Cast (Auto) (0-2) /lpf U Epithel Cells (Auto) (0-2) /hpf Urine Bacteria (Auto) (None Seen) Adenovirus (PCR) Not Detected (NotDetected) B. pertussis DNA (PCR) Not Detected (NotDetected) B.parapertussis DNA PCR Not Detected (NotDetected) C. pneumoniae DNA (PCR) Not Detected (NotDetected) Coronavirus OC43 (PCR) Not Detected (NotDetected) Coronavirus HKU1 (PCR) Not Detected (NotDetected) Coronavirus 229E (PCR) Not Detected (NotDetected) SARS-CoV-2 (PCR) NEGATIVE Not Detected (Negative) Coronavirus NL63 (PCR) Not Detected (NotDetected) Human Metapneumovir PCR Not Detected (NotDetected) Influenza Type A (PCR) Negative (Neg) Influenza Type B (PCR) (Neg) M. pneumoniae (PCR) (NotDetected) Parainfluenza 1 (PCR) (NotDetected) Parainfluenza 2 (PCR) (NotDetected) Parainfluenza 3 (PCR) (NotDetected) Parainfluenza 4 (PCR) (NotDetected) RSV (RT-PCR) (Neg) RSV (PCR) (NotDetected) Entero/Rhino (PCR) (NotDetected) 10/30/23 10/30/23 10/30/23 Range/Units 16:06 16:06 16:31 WBC (4.8-10.8) K/ul RBC (4.70-6.10) M/uL Hgb (14.0-18.0) g/dl Hct (42.0-52.0) % MCV (80.0-100.0) fL MCH (25.0-34.0) pg MCHC (32.0-36.0) g/dL RDW Std Deviation (36.4-46.3) fL RDW Coeff of Romulo (11.5-14.5) % Plt Count (130-400) K/uL MPV (9.4-12.4) fL Immature Gran % (Auto) % Neut % (Auto) % Lymph % (Auto) % Blaine % (Auto) % Eos % (Auto) % Baso % (Auto) % Neut # (Auto) (1.40-6.50) K/uL Lymph # (Auto) (1.20-3.40) K/uL Blaine # (Auto) (0.11-0.59) K/uL Eos # (Auto) (0.00-0.50) K/uL Baso # (Auto) (0.00-0.20) K/uL Immature Gran # (Auto) (0.01-0.20) K/uL PT 25.1 H (9.0-12.0) Seconds INR 2.5 H (0.9-1.1) APTT 39 H (21-31) Seconds PTT Ratio 1.4 Sodium (136-145) mmol/L Potassium (3.5-5.1) mmol/L Chloride (98-107) mmol/L Carbon Dioxide (21-32) mmol/L Anion Gap (3-11) BUN (6-23) mg/dl Creatinine (0.6-1.4) mg/dl Est Cr Clr Drug Dosing ml/min Est GFR ( Amer) ml/min Est GFR (Non-Af Amer) ml/min BUN/Creatinine Ratio (10-20) Glucose (70-99(Fasting)) mg/dl Lactate 2.2 H* (0.4-2.0) mmol/L Calcium (8.6-10.3) mg/dl Magnesium 1.8 (1.7-2.4) mg/dl Total Bilirubin (0.2-1.0) mg/dl AST (13-39) U/L ALT (7-52) U/L Alkaline Phosphatase (34-104) U/L Troponin I High Sens 8.9 (0-20) pg/ml Total Protein (6.0-8.3) gm/dl Albumin (3.4-5.0) gm/dl Globulin (2.5-4.0) gm/dl Albumin/Globulin Ratio (0.9-2) TSH 0.795 (0.300-4.500) uIu/ml Urine Color Urine Appearance (Clear) Urine pH (4.5-7.5) Ur Specific [place] (1.000-1.030) Urine Protein (Negative) Urine Glucose (UA) (Negative) Urine Ketones (Negative) Urine Blood (Negative) Urine Nitrite (Negative) Urine Bilirubin (Negative) Urine Urobilinogen (Negative) Ur Leukocyte Esterase (Negative) Urine WBC (Auto) (0-5) /hpf Urine RBC (Auto) (0-2) /hpf U Hyaline Cast (Auto) (0-2) /lpf U Epithel Cells (Auto) (0-2) /hpf Urine Bacteria (Auto) (None Seen) Adenovirus (PCR) (NotDetected) B. pertussis DNA (PCR) (NotDetected) B.parapertussis DNA PCR (NotDetected) C. pneumoniae DNA (PCR) (NotDetected) Coronavirus OC43 (PCR) (NotDetected) Coronavirus HKU1 (PCR) (NotDetected) Coronavirus 229E (PCR) (NotDetected) SARS-CoV-2 (PCR) (Negative) Coronavirus NL63 (PCR) (NotDetected) Human Metapneumovir PCR (NotDetected) Influenza Type A (PCR) Not Detected (Neg) Influenza Type B (PCR) Negative Not Detected (Neg) M. pneumoniae (PCR) Not Detected (NotDetected) Parainfluenza 1 (PCR) Not Detected (NotDetected) Parainfluenza 2 (PCR) Not Detected (NotDetected) Parainfluenza 3 (PCR) Not Detected (NotDetected) Parainfluenza 4 (PCR) Not Detected (NotDetected) RSV (RT-PCR) Negative (Neg) RSV (PCR) Not Detected (NotDetected) Entero/Rhino (PCR) DETECTED A (NotDetected) 10/30/23 10/30/23 Range/Units 18:17 18:18 WBC (4.8-10.8) K/ul RBC (4.70-6.10) M/uL Hgb (14.0-18.0) g/dl Hct (42.0-52.0) % MCV (80.0-100.0) fL MCH (25.0-34.0) pg MCHC (32.0-36.0) g/dL RDW Std Deviation (36.4-46.3) fL RDW Coeff of Romulo (11.5-14.5) % Plt Count (130-400) K/uL MPV (9.4-12.4) fL Immature Gran % (Auto) % Neut % (Auto) % Lymph % (Auto) % [place]aine % (Auto) % Eos % (Auto) % Baso % (Auto) % Neut # (Auto) (1.40-6.50) K/uL Lymph # (Auto) (1.20-3.40) K/uL [place]aine # (Auto) (0.11-0.59) K/uL Eos # (Auto) (0.00-0.50) K/uL Baso # (Auto) (0.00-0.20) K/uL Immature Gran # (Auto) (0.01-0.20) K/uL PT (9.0-12.0) Seconds INR (0.9-1.1) APTT (21-31) Seconds PTT Ratio Sodium (136-145) mmol/L Potassium (3.5-5.1) mmol/L Chloride (98-107) mmol/L Carbon Dioxide (21-32) mmol/L Anion Gap (3-11) BUN (6-23) mg/dl Creatinine (0.6-1.4) mg/dl Est Cr Clr Drug Dosing ml/min Est GFR ( Amer) ml/min Est GFR (Non-Af Amer) ml/min BUN/Creatinine Ratio (10-20) Glucose (70-99(Fasting)) mg/dl Lactate 1.7 (0.4-2.0) mmol/L Calcium (8.6-10.3) mg/dl Magnesium (1.7-2.4) mg/dl Total Bilirubin (0.2-1.0) mg/dl AST (13-39) U/L ALT (7-52) U/L Alkaline Phosphatase (34-104) U/L Troponin I High Sens (0-20) pg/ml Total Protein (6.0-8.3) gm/dl Albumin (3.4-5.0) gm/dl Globulin (2.5-4.0) gm/dl Albumin/Globulin Ratio (0.9-2) TSH (0.300-4.500) uIu/ml Urine Color Yellow Urine Appearance Clear (Clear) Urine pH 5.0 (4.5-7.5) Ur Specific [place] 1.019 (1.000-1.030) Urine Protein Negative (Negative) Urine Glucose (UA) 3+ H (Negative) Urine Ketones Negative (Negative) Urine Blood 2+ H (Negative) Urine Nitrite Negative (Negative) Urine Bilirubin Negative (Negative) Urine Urobilinogen Negative (Negative) Ur Leukocyte Esterase Trace H (Negative) Urine WBC (Auto) 0-5 (0-5) /hpf Urine RBC (Auto) >20 H (0-2) /hpf U Hyaline Cast (Auto) 0-2 (0-2) /lpf U Epithel Cells (Auto) 0-2 (0-2) /hpf Urine Bacteria (Auto) None Seen (None Seen) Adenovirus (PCR) (NotDetected) B. pertussis DNA (PCR) (NotDetected) B.parapertussis DNA PCR (NotDetected) C. pneumoniae DNA (PCR) (NotDetected) Coronavirus OC43 (PCR) (NotDetected) Coronavirus HKU1 (PCR) (NotDetected) Coronavirus 229E (PCR) (NotDetected) SARS-CoV-2 (PCR) (Negative) Coronavirus NL63 (PCR) (NotDetected) Human Metapneumovir PCR (NotDetected) Influenza Type A (PCR) (Neg) Influenza Type B (PCR) (Neg) M. pneumoniae (PCR) (NotDetected) Parainfluenza 1 (PCR) (NotDetected) Parainfluenza 2 (PCR) (NotDetected) Parainfluenza 3 (PCR) (NotDetected) Parainfluenza 4 (PCR) (NotDetected) RSV (RT-PCR) (Neg) RSV (PCR) (NotDetected) Entero/Rhino (PCR) (NotDetected) Administered Medications Albuterol (Albut/Ipratrop 3mg/0.5mg Neb 3 Ml Vial) 3 ml INH Q6R FRANKIE Stop: 11/29/23 20:29 Last Admin: 10/30/23 20:39 Dose: 3 ml Documented By: CHAD Docusate Sodium (Docusate Sodium 100 Mg Cap) 200 mg PO BID FRANKIE Stop: 11/29/23 20:59 Last Admin: 10/30/23 22:53 Dose: 200 mg Documented By: RAFAEL Guaifenesin (Guaifenesin 600 Mg Tabcr) 1,200 mg PO BID FRANKIE Stop: 11/29/23 20:59 Last Admin: 10/30/23 22:21 Dose: 1,200 mg Documented By: RAFAEL Insulin Aspart (Insulin Aspart Per Unit Charge) 0 units SC ACHS FRANKIE Stop: 11/29/23 20:59 Last Admin: 10/30/23 22:50 Dose: 8 units Documented By: RAFAEL Co-signed By: LUCAS Insulin Glargine (Lantus Per Unit Charge) 16 units SQ BID FRANKIE Stop: 11/29/23 20:59 Last Admin: 10/30/23 22:50 Dose: 16 units Documented By: RAFAEL Co-signed By: LUCAS Losartan Potassium (Losartan Potassium 25 Mg Tab) 25 mg PO QPM FRANKIE Stop: 11/29/23 20:59 Last Admin: 10/30/23 22:21 Dose: 25 mg Documented By: RAFAEL Metoprolol Succinate (Metoprolol Succ 25mg Ext Rel Tab) 75 mg PO QPM FRANKIE Stop: 11/29/23 20:59 Last Admin: 10/30/23 22:22 Dose: 75 mg Documented By: RAFAEL Pregabalin (Pregabalin 100 Mg Cap) 100 mg PO TID FRANKIE Stop: 11/29/23 20:59 Last Admin: 10/30/23 22:28 Dose: 100 mg Documented By: RAFAEL Ranolazine (Ranolazine 500 Mg Er Tab) 1,000 mg PO Q12H FRANKIE Stop: 11/29/23 20:59 Last Admin: 10/30/23 22:22 Dose: 1,000 mg Documented By: RAFAEL Warfarin Sodium (Warfarin Sod 3 Mg Tab) 3 mg PO DAILY@1600 FRANKIE Stop: 11/29/23 20:29 Last Admin: 10/30/23 22:20 Dose: 3 mg Documented By: RAFAEL Discontinued Medications Albuterol (Albut/Ipratrop 3mg/0.5mg Neb 3 Ml Vial) 3 ml NEB NOW STA; Protocol Stop: 10/30/23 16:29 Last Admin: 10/30/23 16:57 Dose: 3 ml Documented By: RAFAEL Sodium Chloride (Nss) 500 mls @ 999 mls/hr IV .Q31M FRANKIE Stop: 10/30/23 16:45 Last Infusion: 10/30/23 17:30 Dose: Infused Documented By: Admin: 10/30/23 16:19 Dose: 999 mls/hr Documented By: RAFAEL Sodium Chloride (Nss) 500 mls @ 999 mls/hr IV .Q31M ONE Stop: 10/30/23 17:20 Last Infusion: 10/30/23 17:30 Dose: Infused Documented By: Admin: 10/30/23 16:58 Dose: 999 mls/hr Documented By: RAFAEL Ceftriaxone Sodium (Rocephin) 2,000 mg in 50 mls @ 100 mls/hr IV NOW STA Stop: 10/30/23 17:48 Last Infusion: 10/30/23 18:19 Dose: Infused Documented By: Admin: 10/30/23 17:37 Dose: 100 mls/hr Documented By: RAFAEL Methylprednisolone (Methylprednisolone 125 Mg/2 Ml Vial) 60 mg IV NOW STA Stop: 10/30/23 17:20 Last Admin: 10/30/23 17:37 Dose: 60 mg Documented By: RAFAEL Imaging Data Radiologist's Impression: Chest X-Ray 10/30/23 15:50 XR chest 1V portable CLINICAL HISTORY: Possible pneumonia TECHNIQUE: Single frontal radiograph of the chest was obtained. Comparison: Comparison is made to chest radiograph 12/15/2022 FINDINGS: No lines and tubes are seen. Cardiomegaly is noted. The aortic arch is calcified. The lungs are clear. No evidence of pleural effusion or pneumothorax. IMPRESSION: No acute chest disease. Cardiomegaly is noted. No evidence of pneumonia. ACT 112: Negative or not required by law. Electronically signed by: Kiet Cervantes M.D. 10/30/2023 4:30 PM Discharge Plan Visit Data Chief Complaint: Hypotension Stated Complaint: PNEUMONIA, LOW BP, COUGH, SOB, SORE THROAT ED Provider: Bharathi Jacobo Discharge Problem: Hypotension, Hypoxia, SOB (shortness of breath), Wheezing, Rhinovirus infection Patient Disposition: Admitted As Inpatient Condition: Fair Discharge Instructions Interventions: ED Discharge Assessment Last Done: 10/30/23 20:14 Discharge Problem: Hypotension Qualifiers: Hypotension type: unspecified hypotension type Qualified Code(s): I95.9 - Hypotension, unspecified
[2023-10-30 16:41] LABS: Albumin Globulin Ratio 1.4 (0.9-2); Albumin Level 4.3 gm/dl (3.4-5.0); BUN Creatinine Ratio 18.2 (10-20); Bilirubin,Total 0.6 mg/dl (0.2-1.0); Calcium 9.6 mg/dl (8.6-10.3); Creatinine Clr Calc Pharmacy 40.6 ml/min; Est GFR (Non-African American) 36.3 ml/min; Globulin 3.1 gm/dl (2.5-4.0); Total Protein 7.4 gm/dl (6.0-8.3)
[2023-10-30 16:55] LABS: Influenza A virus by PCR Negative (Neg); Influenza B virus by PCR Negative (Neg); RSV by PCR Negative (Neg); SARS CoV2 RNA(COVID-19) Ceph NEGATIVE (Negative)
[2023-10-30] MEDS: ALBUT/IPRATROP 3MG/0.5MG NEB 3 ML VIAL NEB STA (16:57)
[2023-10-30] MEDS: SODIUM CHLORIDE 0.9% 500 ML IV ONE (16:58)
[2023-10-30 17:04] LABS: Magnesium 1.8 mg/dl (1.7-2.4)
[2023-10-30 17:11] LABS: Troponin I High Sensitivity 8.9 pg/ml (0-20)
[2023-10-30 17:16] LABS: INR 2.5 (0.9-1.1); Partial Thromboplastin Ratio 1.4; Partial Thromboplastin Time 39 Seconds (21-31); Prothrombin Time 25.1 Seconds (9.0-12.0)
[2023-10-30 17:21] LABS: Thyroid Stimulating Hormone 0.795 uIu/ml (0.300-4.500)
[2023-10-30] MEDS: methylPREDNISolone 125 MG/2 ML VIAL IV STA (17:37)
[2023-10-30] MEDS: cefTRIAXone SODIUM 2,000 MG/50 ML BAG IV STA (17:37)
[2023-10-30 17:41] LABS: Adenovirus PCR Not Detected (NotDetected); Bordetella parapertussis PCR Not Detected (NotDetected); Bordetella pertussis PCR Not Detected (NotDetected); Chlamydia pneumoniae PCR Not Detected (NotDetected); Coronavirus 229E PCR Not Detected (NotDetected); Coronavirus CoV-2 (COVID19)PCR Not Detected (NotDetected); Coronavirus HKU1 PCR Not Detected (NotDetected); Coronavirus NL63 PCR Not Detected (NotDetected); Coronavirus OC43PCR Not Detected (NotDetected); Human Metapneumovirus PCR Not Detected (NotDetected); Influenza A PCR Not Detected (NotDetected); Influenza B PCR Not Detected (NotDetected); Mycoplasma pneumoniae PCR Not Detected (NotDetected); Parainfluenza Virus 1 PCR Not Detected (NotDetected); Parainfluenza Virus 2 PCR Not Detected (NotDetected); Parainfluenza Virus 3 PCR Not Detected (NotDetected); Parainfluenza Virus 4 PCR Not Detected (NotDetected); Respiratory Syncytial VirusPCR Not Detected (NotDetected); Rhinovirus/Enterovirus PCR DETECTED (NotDetected)
--- NOTE | 2023-10-30 18:16 | History & Physical Report ---
Date of Service October 30, 2023 Assessment & Plan (1) Enterovirus infection: Plan: Patient was referred to the ED on 10/29 from urgent care out of concern for pneumonia SpO2 dropped to 88% while ambulating Empiric Rocephin 2000 mg IV x 1 in the ED CXR without acute findings; no evidence of pneumonia Entero-/rhinovirus (+) on arrival Supportive care Incentive spirometry, flutter valve Duoneb 3mL Q6R Guaifenesin 1200 mg p.o. BID Supplement oxygen as needed to maintain SpO2 >94% Continuous pulse oximetry PT/OT evaluations appreciated A.m. CBC, BMP, PT/INR (2) Atrial fibrillation with RVR: Plan: Patient was in atrial fibrillation with RVR on arrival Rate controlled after initial resuscitation INR 2.5 on arrival Continue warfarin, metoprolol (3) Elevated serum lactate dehydrogenase: Plan: Lactate 2.2-->1.7 NSS 1000 mL IV in the ED Do not suspect patient is septic; suspect this may be secondary to dehydration Continue to monitor (4) Heart failure with mid-range ejection fraction (HFmEF): Plan: Last echocardiogram 12/16/2022 revealed LVEF at 45-50% and RVSP elevated at 30- 40mmHg Daily weight Strict I&O monitoring Heart healthy, low-sodium diet Hold Lasix for now while receiving fluids (5) Diabetes mellitus type 2, controlled: Plan: Last A1c at 7.2% on 06/21/2023 Hold empagliflozin Patient is normally on Lantus 32u HS Will switch to Lantus 16 u BID while inpatient SSI; with target BSG range 110-140mg/dL, CF 45, carb ratio 10 T2DM diet BSG ACHS Adjust regimen as needed AM A1c (6) Complex sleep apnea syndrome: Plan: CPAP w/ 2L supplement O2 HS (7) Hypertension: Plan: Continue losartan Plan Disposition: Admit to PCU telemetry Full code Heart healthy, T2DM diet VTE PPx: On warfarin History of Present Illness Chief Complaint: SOB, hypotension, hypoxia Primary Care Provider: Marco Velasco MD Skinny is a pleasant 73-year-old male with PMH of T2DM, HTN, atrial fibrillation (on warfarin), abdominal aortic aneurysm dissection, stage III CKD, IPMN, and HFmrEF. Patient was referred from urgent care on 10/29 due to concern for pneumonia and decreased SpO2 at 88% while ambulating. He was also hypotensive in the 90-99 SBP range at this time. Patient reports she has had 1 week of productive cough, SOB, congestion, and fatigue. He endorses SOB both at rest and with exertion (worse with exertion). No orthopnea. He also has been wheezing and reports that he has had a productive cough (yellow sputum production) over the past week. No fevers at home; although he has been using Tylenol as needed, and Tylenol PM at night. He has also been taking Mucinex for cough and [place]ida-Warren as needed. He has used an albuterol inhaler 3 times over the past week, but reports this has not helped. He took his regular morning medications today; no recent change in medications. Patient manages own medicine at home. He uses supplemental oxygen at nighttime (2L NC) while using his CPAP. His home pulse ox has been around 94% this past week, but does drop when he ambulates. No PMH of DVT/PE. Patient believes he might have pick somet jaylyn up from his grandson, who is also sick with a cold. Patient is tachycardic at 103 bpm at time of admission; SpO2 92% on RA; vitals otherwise stable. ED course: NSS 500 mL IV x 2 DuoNeb 3 mL Solu-Medrol 60 mg IV Rocephin 2000 mg IV ROS: Patient endorses SOB at rest and with exertion, wheezing, productive cough (yellow-giraldo), night-sweats (earlier in the week; resolved), lightheadedness when walking, near syncope, chest palpitations, and abdominal cramping (attributes to coughing bad). Patient denies fever, headache, fainting, chest pain, pleuritic CP, hemoptysis, nausea, vomiting, diarrhea, or changes in urinary/bowel habits. Allergies Allergy/AdvReac Type Severity Reaction Status Date / Time dulaglutide [From [facility]] AdvReac Intermediate Diarrhea , Verified 10/30/23 19:08 nausea Home Medications Medication Instructions Recorded Confirmed Type multivitamin (Daily Multi-Vitamin 1 tab PO QAM 03/15/20 10/30/23 History tablet) omega 4-paq-osm-fish oil 1,000 mg 1 cap PO QAM 06/10/21 10/30/23 History (120 mg-180 mg) capsule (Fish Oil) Oxygen Home #1 ea 08/27/21 10/30/23 Rx blood-glucose sensor (Dexcom G6 #3 ea 09/04/21 10/30/23 Rx Sensor device) blood-glucose transmitter (Dexcom #1 ea 09/04/21 10/30/23 Rx G6 Transmitter device) albuterol sulfate 90 mcg/actuation 1 - 2 puff inhalation Q4H PRN 06/04/22 10/30/23 Rx aerosol inhaler shortness of breath #18 grams cyanocobalamin (vitamin B-12) 100 100 mcg PO 4XWK 06/09/22 10/30/23 History mcg tablet docusate sodium 100 mg capsule 200 mg PO BID 06/09/22 10/30/23 History nitroglycerin 0.3 mg sublingual 0.3 mg sublingual Q5M PRN chest 06/09/22 10/30/23 Rx tablet pain #10 tabs furosemide 40 mg tablet 40 mg PO QAM #90 tabs 09/07/22 10/30/23 Rx warfarin 3 mg tablet 3 mg PO DIRECTED 12/15/22 10/30/23 History Spacer for Inhaler #1 ea 12/19/22 10/30/23 Rx pen needle, diabetic 32 gauge x #200 ea 02/24/23 10/30/23 Rx 5/32" (BD Reyna 2nd Gen Pen Needle) insulin aspart U-100 100 unit/mL 10 - 20 unit (0.1 - 0.2 mL) subcut 05/19/23 10/30/23 Rx (3 mL) subcutaneous pen (Novolog TID #15 mL FlexPen U-100 Insulin aspart) Tresiba FlexTouch U-200 200 32 unit (0.16 mL) subcut HS #9 mL 06/23/23 10/30/23 Rx unit/mL (3 mL) subcutaneous pen (insulin degludec) pregabalin 100 mg capsule 100 mg PO TID #270 caps 07/16/23 10/30/23 Rx ascorbic acid (vitamin C) 1,000 mg 1 g PO 3XWK 08/18/23 10/30/23 History capsule cholecalciferol (vitamin D3) 50 50 mcg PO QDL 08/18/23 10/30/23 History mcg (2,000 unit) capsule (Vitamin D3) losartan 25 mg tablet 25 mg PO QPM 08/18/23 10/30/23 History metoprolol succinate 50 mg 75 mg PO QPM 08/18/23 10/30/23 History tablet,extended release 24 hr tamsulosin 0.4 mg capsule 0.4 mg PO QAM 08/18/23 10/30/23 History fluticasone furoate 50 1 inh inhalation QAM #90 ea 09/02/23 10/30/23 Rx mcg/actuation blister powder for inhalation (Arnuity Ellipta) empagliflozin 10 mg tablet 10 mg PO DAILY #90 tabs 09/04/23 10/30/23 Rx (Jardiance) ranolazine 1,000 mg 1,000 mg PO Q12H #180 tabs 09/27/23 10/30/23 Rx tablet,extended release,12 hr fenofibrate nanocrystallized 48 mg 48 mg PO QDL #90 tabs 10/19/23 10/30/23 Rx tablet Past Med/Surg History Problem List (Updated 10/30/23 @ 18:18 by Tuan Johnson PA-C) Elevated serum lactate dehydrogenase Enterovirus infection Atrial fibrillation with RVR History of colon polyps BMI 40.0-44.9, adult COPD (chronic obstructive pulmonary disease) (Acute) Fatigue Enterococcus UTI Pancreatic cyst Heart failure with mid-range ejection fraction (HFmEF) IPMN (intraductal papillary mucinous neoplasm) CAP (community acquired pneumonia) Status post right knee replacement (~08/2021) Encounter for pre-operative examination History of mitral valve replacement BPH with obstruction/lower urinary tract symptoms Obesity Pulmonary hypertension Moderate 09/2020 echo, "suspected secondary to elevated end-diastolic pressure, obesity, restrictive lung disease, hypoxemia and sleep disordered breathing: Would not recommend consideration for any pulmonary vasodilators at this point" follows with [facility]; Right heart cath 07/11/21: Normal left and right-sided filling pressures. Normal pulmonary artery pressure. 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 (Chronic) Dysesthesia (Chronic) CKD stage 3 due to type 2 diabetes mellitus (Chronic) follows with [facility] Baseline creatinine 1.7-2.0 per nephrology notes Chronic diastolic CHF (congestive heart failure) (Chronic) Anemia, unspecified (Acute 11/30/12) AF (atrial fibrillation) (Chronic) REASON FOR COUMADIN Abdominal aortic aneurysm dissection (Chronic) "infrarenal aortic dissection extending into right common iliac and right proximal mid external iliac arteries": Annual surveillance (stable), monitored by [facility] vascular surgery Background diabetic retinopathy associated with type 2 diabetes mellitus (Chronic) Coronary atherosclerosis of [place] coronary vessel (Chronic) Severe 80-90% apical LAD disease. Moderate non-obstructive proximal-mid LAD (FFR 0.83). Mild-moderate multivessel disease- 30-40% proximal OM1, mid circumflex, mid RCA 10/12/18 cath: Distal LAD disease is low risk involving small vessel at the apex. Recommend trial of additional antianginal therapy, start Imdur. If persistent symptoms could consider POBA +/- stent to LAD. 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) Vitamin B12 deficiency (Chronic) Vitamin D deficiency (Chronic) Chronic anticoagulation (Chronic) Medical History History of transesophageal echocardiography (JAYJAY) (12/16/22) at [facility] Osteoarthritis Degenerative disc disease Chronic back pain History of COVID-19 11/2022: treated at [facility] inpatient for respiratory failure Hyperlipidemia Hypertension On anticoagulant therapy History of stroke (2019) embolic, 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 CVA post cardiac catheterization, mild residual aphasia Type 2 diabetes mellitus IDDM Pancreatic cyst pt unaware Hx of pulmonary hypertension Moderate 09/2020 echo, "suspected secondary to elevated end-diastolic pressure, obesity, restrictive lung disease, hypoxemia and sleep disordered breathing: Would not recommend consideration for any pulmonary vasodilators at this point" follows with [facility]; Right heart cath 07/11/21: Normal left and right-sided filling pressures. Normal pulmonary artery pressure. IPMN (intraductal papillary mucinous neoplasm) pt unaware Interstitial lung disease monitoring per [facility] Coronary atherosclerosis Severe 80-90% apical LAD disease. Moderate non-obstructive proximal-mid LAD (FFR 0.83). Mild-moderate multivessel disease- 30-40% proximal OM1, mid circumflex, mid RCA 10/12/18 cath: Distal LAD disease is low risk involving small vessel at the apex. Recommend trial of additional antianginal therapy, start Imdur. If persistent symptoms could consider POBA +/- stent to LAD. Chronic obstructive pulmonary disease Sleep apnea ASV machine with 2L supplemental oxygen nightly-compliant, follows with [facility] Hx of pulmonary edema (12/2022) treated at [facility] Hx of renal calculi History of community acquired pneumonia 05/2022, treated at [facility] BPH (benign prostatic hyperplasia) Chronic kidney disease Stage 3 follows with [facility] Baseline creatinine 1.7-2.0 per nephrology notes History of cardioversion AAA (abdominal aortic aneurysm) "infrarenal aortic dissection extending into right common iliac and right proximal mid external iliac arteries": Annual surveillance (stable), monitored by [facility] vascular surgery History of blood transfusion during mitral valve repair per pt Diabetic polyneuropathy B/L LE Atrial fibrillation follows with [facility] cardio Gastroparesis History of anemia Bilateral renal cysts pt unaware Congestive heart failure EF 50-55% 09/2020 echo Restrictive lung disease Surgical History S/P epidural steroid injection S/P rotator cuff repair bilateral History of total right knee replacement (TKR) History of cystoscopy Left Ureteronephroscopy 08/24/2019: Grade 3 view, MAC#3.0, ETT#8.0. No issues per anesthesia postop progress note. History of colonoscopy History of tooth extraction History of cardiac cath 2021 - no stents at [facility] 2018 - no stents at [facility] History of total left knee replacement History of mitral valve replacement 2007, [facility] History of surgical removal of pilonidal cyst Family History Mother Colon cancer Diabetes Grandmother Multiple sclerosis Father Diabetes Coronary heart disease Myocardial infarction Grandfather Stroke Sister Diabetes Hypertension Brother Diabetes Hypertension Son Depression Hypertension Other No family history of adverse response to anesthesia Denies family history of Ovarian cancer Prostate cancer Breast cancer Social History Smoking Status: Never smoker Second Hand Exposure: No; Do You Dip or Chew Tobacco: No; Hx Alcohol Use: No Hx Substance Use: No Preferred Language: [place]au[place] Communication Ability: Effective Visual Impairment: No Limitations Hearing Ability: Normal Public Health Staff Nurse Required: No Beliefs That Will Affect Care: None marital status: Current Living Situation: Spouse Current Living Situation Comment: live with and grown children current occupational status: retired current occupation: Former [employer] How many Children do You have: 2 Feels Safe at Home: Yes Childhood Exposure to Second-Hand Smoke: No Dental Care, Regularly: No Physical Activity Frequency: Does not Exercise Seatbelt Use: always Sunscreen Use: No Assistive Devices: Cane, Glasses, Oxygen - at Night and Walker Review of Systems Review of Systems: See HPI above Physical Exam Physical Exam: General: no acute distress; non-toxic appearing; well-nourished; cooperative; SpO2 93% on RA HEENT: normocephalic, atraumatic; no scleral icterus; PERRLA w/ EOMs intact; vision and hearing grossly intact Neck: supple; no lymphadenopathy; trachea midline Skin: warm, dry without signs of tenting; no cyanosis; no rashes, bruising, lesions, or erythema noted CV: chest wall NTP; RRR; S1/S2 normal; no murmurs/rubs/gallops; pulses intact and symmetric at radial, DP, and PT Lungs: Mild respiratory distress; oscillatory wheeze; conversational dyspnea; coughing fit; symmetrical chest wall expansion; bibasilar crackles in the lower lung dorsey bilaterally ABD: Soft, NTP; BS present; no rebound/guarding; no distention MSK: no tics or fasciculations; nonpitting edema in the lower extremities bilaterally (left slightly greater than right), nonerythematous Neuro: A&Ox3; normal mood and affect; fluent speech; no focal deficits; sensation grossly intact in the LEs b/l Results & Data Results & Data Vital Signs (Past 12 Hours) Vital Signs Temp Pulse Resp BP Pulse Ox O2 Del Method O2 Flow Rate 10/30/23 17:30 115/65 10/30/23 17:30 115/65 10/30/23 17:30 11565 09/14/24 17:30 115/65 10/30/23 17:30 115/65 10/30/23 17:30 103 H 115/65 93 10/30/23 17:01 104 H 94/59 L 94 Room Air 10/30/23 16:30 114/66 10/30/23 16:25 113 H 24 94 Room Air 10/30/23 16:23 117 H 10/30/23 16:23 95 Room Air 0 10/30/23 15:46 36.8 C 95 H 21 115/70 94 Room Air Laboratory Results Abnormal lab results 10/30/23 10/30/23 10/30/23 Range/Units 16:05 16:06 16:31 RDW Std Deviation 47.8 H (36.4-46.3) fL Neut # (Auto) 7.38 H (1.40-6.50) K/uL [place] # (Auto) 0.91 H (0.11-0.59) K/uL PT 25.1 H (9.0-12.0) Seconds INR 2.5 H (0.9-1.1) APTT 39 H (21-31) Seconds BUN 33 H (6-23) mg/dl Creatinine 1.81 H (0.6-1.4) mg/dl Glucose 256 H (70-99(Fasting)) mg/dl Lactate 2.2 H* (0.4-2.0) mmol/L Entero/Rhino (PCR) DETECTED A (NotDetected) Diagnostic Findings Chest X-Ray 10/30/23 15:50 XR chest 1V portable CLINICAL HISTORY: Possible pneumonia TECHNIQUE: Single frontal radiograph of the chest was obtained. Comparison: Comparison is made to chest radiograph 12/15/2022 FINDINGS: No lines and tubes are seen. Cardiomegaly is noted. The aortic arch is calcified. The lungs are clear. No evidence of pleural effusion or pneumothorax. IMPRESSION: No acute chest disease. Cardiomegaly is noted. No evidence of pneumonia. ACT 112: Negative or not required by law. Electronically signed by: Kiet Cervantes M.D. 10/30/2023 4:30 PM ECG Additional Comments: ECG revealed atrial fibrillation with RVR at 123 bpm; QTc 449 Code Status & VTE Plan Code Status Full code VTE Prophylaxis Plan VTE Prophylaxis will be ordered: Yes Supervising Physician Co-Signing Physician Notes Patient seen and examined, chart reviewed, case discussed with Tuan Johnson PA-C and I agree with the assessment and plan as above except as otherwise noted Labs and images reviewed Scattered wheezing on exam. Presents with progressive dyspnea and concern for pneumonia. Bio fire is positive for enterovirus. Lactate elevated improved following fluids. Received 1 dose of Rocephin in the ER. No evidence of superimposed pneumonia on chest x-ray. Additional antibiotics deferred. Agree with management as above. Patient feels his wheezing is improved on reassessment, although otherwise feels about the same at time of attending asses sment. PG Care Time/CCT Total # of Minutes Spent Total Time Spent with Patient: Total time spent is greater than 50% in coordination of care (as documented) at patient's floor/unit and/or counseling patient: Coding [place] [address] INT INP/OBS CARE 3/75MIN Patient Type Established History Comprehensive Exam Comprehensive Medical Decision Making High Complexity Diagnoses Enterovirus infection B34.1 Atrial fibrillation with RVR I48.91 Elevated serum lactate dehydrogenase R74.02 Heart failure with mid-range ejection fraction (HFmEF) I50.22 Diabetes mellitus type 2, controlled E11.9 Complex sleep apnea syndrome G47.31 Essential hypertension I10 Hypertension type: essential hypertension (7) Hypertension Hypertension type: essential hypertension Qualified Code(s): I10 - Essential (primary) hypertension
[2023-10-30 18:50] LABS: Appearance Urine Clear (Clear); Bacteria Urine Automated None Seen (None Seen); Bilirubin Urine Negative (Negative); Blood Urine 2+ (Negative); Cast Urine Automated 0-2 /lpf (0-2); Color Urine Yellow; Epithelial Cell Urine Auto 0-2 /hpf (0-2); Glucose Urine UA 3+ (Negative); Ketones Urine Negative (Negative); Leukocyte Esterase Urine Trace (Negative); Nitrite Urine Negative (Negative); Protein Urine Negative (Negative); RBC Urine Automated >20 /hpf (0-2); Specific Gravity Urine 1.019 (1.000-1.030); Urobilinogen Urine Negative (Negative); WBC Urine Automated 0-5 /hpf (0-5)
[2023-10-30] MEDS ORDERED: ACETAMINOPHEN 325 MG TAB PO PRN (20:13)
[2023-10-30] MEDS ORDERED: GLUCOSE 40% GEL 15 GM TUBE PO PRN (20:13)
[2023-10-30] MEDS ORDERED: DEXTROSE 50% 50 ML SYRINGE IV PRN (20:13)
[2023-10-30] MEDS ORDERED: CARBOHYDRATES FOR HYPOGLYCEMIA PO PRN (20:13)
[2023-10-30] MEDS ORDERED: GLUCOSE 10 TAB/TUBE PO PRN (20:13)
[2023-10-30] MEDS ORDERED: ONDANSETRON INJ 2 MG/ML 2 ML VIAL IV PRN (20:13)
[2023-10-30] MEDS ORDERED: GLUCAGON FOR INJ 1 MG VIAL SQ PRN (20:13)
[2023-10-30] MEDS: ALBUT/IPRATROP 3MG/0.5MG NEB 3 ML VIAL INH SCH (20:39)
[2023-10-30] MEDS: WARFARIN SOD 3 MG TAB PO SCH (22:20)
[2023-10-30] MEDS: guaiFENesin 600 MG TABCR PO SCH (22:21)
[2023-10-30] MEDS: LOSARTAN POTASSIUM 25 MG TAB PO SCH (22:21)
[2023-10-30] MEDS: RANOLAZINE 500 MG ER TAB PO SCH (22:22)
[2023-10-30] MEDS: METOPROLOL SUCC 25MG EXT REL TAB PO SCH (22:22)
[2023-10-30] MEDS: PREGABALIN 100 MG CAP PO SCH (22:28)
[2023-10-30] MEDS: LANTUS PER UNIT CHARGE SQ SCH (22:50)
[2023-10-30] MEDS: INSULIN ASPART PER UNIT CHARGE SC SCH (22:50)
[2023-10-30] MEDS: DOCUSATE SODIUM 100 MG CAP PO SCH (22:53)
[2023-10-31 07:54] LABS: BUN Creatinine Ratio 20.3 (10-20); Calcium 9.1 mg/dl (8.6-10.3); Creatinine Clr Calc Pharmacy 46.7 ml/min; Est GFR (African American) 49.6 ml/min; Est GFR (Non-African American) 42.8 ml/min; Potassium 4.4 mmol/L (3.5-5.1)
[2023-10-31 07:57] LABS: Basophils # (auto) 0.02 K/uL (0.00-0.20); Basophils % (auto) 0.2 %; Hematocrit (blood only) 41.3 % (42.0-52.0); Hemoglobin 13.5 g/dl (14.0-18.0); Immature Granulocytes # (auto) 0.13 K/uL (0.01-0.20); Immature Granulocytes % (auto) 1.4 %; Lymphocytes # (auto) 0.69 K/uL (1.20-3.40); Lymphocytes % (auto) 7.7 %; Mean Corpuscular Hemoglobin 31.4 pg (25.0-34.0); Mean Corpuscular Hgb Conc 32.7 g/dL (32.0-36.0); Mean Platelet Volume 9.7 fL (9.4-12.4); Monocytes # (auto) 0.32 K/uL (0.11-0.59); Monocytes % (auto) 3.6 %; Neutrophils # (auto) 7.81 K/uL (1.40-6.50); Neutrophils % (auto) 87.1 %; Platelet Count 242 K/uL (130-400); RDW Coefficient of Variation 13.6 % (11.5-14.5); RDW Standard Deviation 48.1 fL (36.4-46.3); White Blood Count 8.97 K/ul (4.8-10.8)
[2023-10-31 08:07] LABS: INR 2.3 (0.9-1.1); Prothrombin Time 23.4 Seconds (9.0-12.0)
[2023-10-31 09:22] LABS: Estimated Average Glucose 140 mg/dl; Hemoglobin A1C 6.5 % (4.5-5.6)
[2023-10-31] MEDS: TAMSULOSIN HCL 0.4 MG CAP PO SCH (10:14)
[2023-10-31] MEDS: FENOFIBRATE NANOCRYSTALLIZED 48 MG TABLET PO SCH (11:37)
[2023-10-31] MEDS: BENZONATATE 100 MG CAPSULE PO SCH ×2 (14:32→20:32)
--- NOTE | 2023-10-31 17:22 | Hospitalist Progress Note ---
Date of Service October 31, 2023 Assessment & Plan (1) Enterovirus infection: Plan: Entero-/rhinovirus (+) on Respiratory BioFire --> with resulting mod-severe bronchitis s/p rocephin & solumedrol last pm in the ER Will cont steroids for severe wheezing - start solumedrol 40mg IV q12h Cont nebs q6h scheduled Add tessalon TID Incentive spirometry, flutter valve Duoneb 3mL Q6R Guaifenesin 1200mg BID Defer on IV abx -- no pneumonia seen on admission cxr Give lasix 20mg IV x 1 in the event some of his wheezing is due to pulmonary edema (2) Atrial fibrillation with RVR: Plan: Patient was in atrial fibrillation with RVR on arrival to [facility] Rates improved today INR 2.3 today Continue warfarin 3mg daily Continue metoprolol succinate 75mg daily (3) Heart failure with mid-range ejection fraction (HFmEF): Plan: Last echocardiogram 12/16/2022 revealed LVEF at 45-50% and RVSP elevated at 30- 40mmHg Has LE edema on exam today with JVD Typically takes lasix 40mg daily at home Will give lasix 20mg IV x 1 now Cont meto succ daily Cont losartan daily Labs in am (4) Diabetes mellitus type 2, controlled: Plan: Last A1c at 7.2% on 06/21/2023 a1c 6.5% today Hold empagliflozin Cont Lantus 16 u BID Cont novolog w/ meals - increase the parameters as BSGs will rise with IV steroids T2DM diet BSG ACHS (5) Complex sleep apnea syndrome: Plan: CPAP w/ 2L supplement O2 HS (6) Hypertension: Plan: Continue losartan Continue meto succinate (7) History of mitral valve replacement: Plan: 2007 echo in 2022 with normal MV measurements, etc plan to repeat his echo in the am (8) Pulmonary hypertension: Plan: 2nd to ILD, etc check PA pressures on echo (9) Coronary atherosclerosis of [place] coronary vessel: Plan: noted cont Ranexa cont meto succ cont losartan cont fenofibrate not on statin - intolerant? no evidence of ACS (10) Interstitial lung disease: Plan: previous CT scans of chest have shown ILD previous PFTs have shown restrictive lung disease some of his crackles could be due to ILD follows w/ [facility] Plan DVT Proph - warfarin updated pt's by phone this evening, 10/31/23 Admission and Anticipated Discharge Date Admission Date: October 30, 2023 Subjective tele - a.fib rates acceptable today patient's main complaint is that of dry cough has baseline dyspnea and JOLLY but these symptoms are worse since he got sick recently having some runny nose appetite unaffected -- eating well no fevers no chest pain or pleuritic pain Review of Systems Review of Systems: CV - no chest pain, mild edema of legs (worse than baseline) pulm - cough/congestion/wheezing/dyspnea GI - no abd pain or N/V Physical Exam Physical Exam: gen - obese, wheezy/coughing, no distress; pleasant neck - mild JVD present mouth - MMM heart - irregularly irregular, s1 s2, no murmur lungs - diffuse wheezes all lung segments; mild fine rales bases; no increased work of breathing abd - soft NT ND BS+ ext - 1+ edema b/l, pulses 2+ b/l psych - a/o x 3 Results & Data Results & Data Vital Signs (Past 12 Hours) Vital Signs Temp Pulse Pulse Resp BP Pulse Ox O2 Del Method 10/31/23 15:14 36.7 C 72 18 103/62 92 Room Air 10/31/23 13:49 88 10/31/23 13:09 80 18 91 Room Air 10/31/23 11:21 36.5 C 73 18 100/59 L 92 Room Air 10/31/23 07:43 36.5 C 78 18 106/63 93 Room Air 10/31/23 07:30 Room Air 10/31/23 07:23 77 10/31/23 07:18 76 18 96 Room Air Laboratory Results Laboratory Results - last 24 hr 10/30/23 10/31/23 10/31/23 22:43 07:08 07:34 WBC 8.97 RBC 4.30 L Hgb 13.5 L Hct 41.3 L MCV 96.0 MCH 31.4 MCHC 32.7 RDW Std Deviation 48.1 H RDW Coeff of Romulo 13.6 Plt Count 242 MPV 9.7 Immature Gran % (Auto) 1.4 Neut % (Auto) 87.1 Lymph % (Auto) 7.7 [place] % (Auto) 3.6 Eos % (Auto) 0.0 Baso % (Auto) 0.2 Neut # (Auto) 7.81 H Lymph # (Auto) 0.69 L [place] # (Auto) 0.32 Eos # (Auto) 0.00 Baso # (Auto) 0.02 Immature Gran # (Auto) 0.13 PT 23.4 H INR 2.3 H Sodium 143 Potassium 4.4 Chloride 107 Carbon Dioxide 29 Anion Gap 7 BUN 32 H Creatinine 1.58 H Est Cr Clr Drug Dosing 46.7 Est GFR ( Amer) 49.6 Est GFR (Non-Af Amer) 42.8 BUN/Creatinine Ratio 20.3 H Glucose 189 H POC Glucose 200 H 212 H Estimat Average Glucose 140 Hemoglobin A1c 6.5 H Calcium 9.1 10/31/23 10/31/23 10/31/23 11:13 15:58 20:25 WBC RBC Hgb Hct MCV MCH MCHC RDW Std Deviation RDW Coeff of Romulo Plt Count MPV Immature Gran % (Auto) Neut % (Auto) Lymph % (Auto) [place] % (Auto) Eos % (Auto) Baso % (Auto) Neut # (Auto) Lymph # (Auto) [place] # (Auto) Eos # (Auto) Baso # (Auto) Immature Gran # (Auto) PT INR Sodium Potassium Chloride Carbon Dioxide Anion Gap BUN Creatinine Est Cr Clr Drug Dosing Est GFR ( Amer) Est GFR (Non-Af Amer) BUN/Creatinine Ratio Glucose POC Glucose 264 H 217 H 105 H Estimat Average Glucose Hemoglobin A1c Calcium PG Care Time/CCT Total # of Minutes Spent Total Time Spent with Patient: Total time spent is greater than 50% in coordination of care (as documented) at patient's floor/unit and/or counseling patient: Coding Level of Care Code 48763 SUB INP/OBS CARE 3/50MIN Diagnoses Enterovirus infection B34.1 Atrial fibrillation with RVR I48.91 Heart failure with mid-range ejection fraction (HFmEF) I50.22 Diabetes mellitus type 2, controlled E11.9 Complex sleep apnea syndrome G47.31 Essential hypertension I10 Hypertension type: essential hypertension History of mitral valve replacement Z95.2 Pulmonary hypertension I27.20 Atherosclerosis of [place] coronary artery of [place] heart without angina pectoris I25.10 [place] vs. transplanted heart: [place] heart Associated angina: without angina Interstitial lung disease J84.9 (6) Hypertension Hypertension type: essential hypertension Qualified Code(s): I10 - Essential (primary) hypertension (9) Coronary atherosclerosis of [place] coronary vessel [place] vs. transplanted heart: [place] heart Associated angina: without angina Qualified Code(s): I25.10 - Atherosclerotic heart disease of [place] coronary artery without angina pectoris
[2023-10-31] MEDS: FUROSEMIDE INJ 20 MG/2 ML VIAL IV ONE (17:34)
[2023-10-31] MEDS: methylPREDNISolone 40 MG in SYRINGE 0 ML IV SCH (18:35)
[2023-10-31] MEDS: MELATONIN 3 MG TAB PO PRN (20:31)
[2023-11-01 08:16] LABS: BUN Creatinine Ratio 19.9 (10-20); Calcium 9.5 mg/dl (8.6-10.3); Creatinine Clr Calc Pharmacy 41.9 ml/min; Est GFR (African American) 43.5 ml/min; Est GFR (Non-African American) 37.5 ml/min; Potassium 4.7 mmol/L (3.5-5.1)
[2023-11-01 08:26] LABS: INR 2.3 (0.9-1.1)
--- NOTE | 2023-11-01 16:51 | XCELERA ---
[id number]
[2023-11-01] MEDS: LEVALBUTEROL 1.25 MG/3 ML NEB NEB SCH (19:42)
[2023-11-01] MEDS: IPRATROPIUM BROMIDE NEB SOLN 0.02% 0.5MG/2.5ML VIAL NEB SCH (19:42)
[2023-11-01] MEDS: SODIUM CHLOR 7% 4 ML NEB NEB SCH (19:42)
--- NOTE | 2023-11-01 20:51 | Hospitalist Progress Note ---
Date of Service November 01, 2023 Assessment & Plan (1) Enterovirus infection: Plan: Entero-/rhinovirus (+) on Respiratory BioFire --> with resulting mod-severe bronchitis s/p rocephin & solumedrol in the ER at presentation Lung exam improved today Remains on IV steroids - will reduce solumedrol from 40mg BID to 30mg BID Cont nebs q6h scheduled but change albuterol to xopenex to help with a.fib rates; cont atrovent; add saline nebs BID Cont tessalon 200mg TID Cont Incentive spirometry, flutter valve Cont Guaifenesin 1200mg BID Defer on IV abx -- no pneumonia seen on admission cxr and clinically w/o bacterial pneumonia Gave lasix 20mg IV x 1 yesterday in the event some of his wheezing is due to pulmonary edema Creatinine shaila mildly overnight from such; defer on additional diuretics today, but likely resume his usual lasix dose tomorrow (40mg po qam) (2) Acute bronchitis: Plan: 2nd to #1 above improving (3) Interstitial lung disease: Plan: previous CT scans of chest have shown ILD previous PFTs have shown restrictive lung disease some of his crackles could be due to ILD follows w/ [facility] Pulmonary now with acute bronchitis due to rhinovirus infection as above (4) Atrial fibrillation with RVR: Plan: Patient was in atrial fibrillation with RVR on arrival to [facility] Rates improved INR 2.3 today Continue warfarin 3mg daily Continue metoprolol succinate 75mg daily If additional rate control is needed can try higher dose meto succ or add digoxin (5) Heart failure with mid-range ejection fraction (HFmEF): Plan: Last echocardiogram 12/16/2022 revealed LVEF at 45-50% and RVSP elevated at 30- 40mmHg Echo today - EF now 40-45% and RV function also worse Typically takes lasix 40mg daily at home - on hold, I did give IV lasix yesterday Defer on diuretics today but likely resume PO lasix tomorrow Cont meto succ daily Cont losartan daily -- as outpatient (sees Dr Naranjo) probably should transition to Entresto Labs in am (6) Diabetes mellitus type 2, controlled: Plan: Last A1c at 7.2% on 06/21/2023 a1c 6.5% this admission BSGs uncontrolled 2nd to steroids Cont Lantus but increase to 18 units BID Cont novolog w/ meals - increase the parameters again T2DM diet BSG ACHS (7) Complex sleep apnea syndrome: Plan: CPAP w/ 2L supplement O2 HS asked him to bring home unit in order placed for home unit usage (8) Hypertension: Plan: Continue losartan Continue meto succinate (9) History of mitral valve replacement: Plan: 2007 echo in 2022 with normal MV measurements, etc echo today - mild MR only (10) Pulmonary hypertension: Plan: 2nd to ILD, etc mild on echo today (PA Pressure 30-40) (11) Coronary atherosclerosis of [place] coronary vessel: Plan: no ischemic symptoms at this time no evidence of ACS cont Ranexa cont meto succ cont losartan cont fenofibrate not on statin - intolerant to such? Plan DVT Proph - warfarin updated pt's by phone 10/31/23 PT, OT progressing Admission and Anticipated Discharge Date Admission Date: October 30, 2023 Subjective patient continues with cough, congestion, wheezing still some dyspnea although it is improved from admission a.fib - times of rapid a.fib with rates over 100; other times well under 100 eating well no fevers patient confirms he uses CPAP at home for CALOS - does not have his home unit with him I asked him to have his family bring it in Review of Systems Review of Systems: gen - no fevers or chills cv - no chest pain pulm - ongoing respiratory symptoms; minimal sputum today but still feels congested GI - has had BMs (last - 10/31/23) Physical Exam Physical Exam: gen - obese, still coughing; but looks good, no distress; pleasant neck - mild JVD improved today mouth - MMM heart - irregularly irregular, s1 s2, no murmur; rate <100 lungs - diffuse wheezes MUCH improved today; mild fine dry rales bases; no increased work of breathing; coughing abd - soft NT ND BS+ ext - trace edema b/l, pulses 2+ b/l psych - a/o x 3 Results & Data Results & Data Vital Signs (Past 12 Hours) Vital Signs Temp Pulse Pulse Resp BP Pulse Ox Pulse Ox 11/01/23 19:42 90 16 92 11/01/23 19:26 36.6 C 91 H 18 104/56 L 94 11/01/23 15:10 103/66 11/01/23 15:08 36.6 C 100 H 18 95/50 L 93 11/01/23 14:14 87 11/01/23 13:30 87 16 92 11/01/23 12:49 93 11/01/23 11:18 36.5 C 82 18 106/65 92 Pulse Ox Pulse Ox O2 Del Method O2 Flow Rate O2 Flow Rate O2 Flow Rate 11/01/23 19:42 Room Air 11/01/23 19:26 Room Air 11/01/23 15:10 11/01/23 15:08 Room Air 11/01/23 14:14 11/01/23 13:30 Room Air 11/01/23 12:49 94 89 L 0 0 0 11/01/23 11:18 Room Air Laboratory Results Laboratory Results - last 24 hr 11/01/23 11/01/23 11/01/23 07:27 07:58 11:14 PT 23.0 H INR 2.3 H Sodium 140 Potassium 4.7 Chloride 104 Carbon Dioxide 29 Anion Gap 7 BUN 35 H Creatinine 1.76 H Est Cr Clr Drug Dosing 41.9 Est GFR ( Amer) 43.5 Est GFR (Non-Af Amer) 37.5 BUN/Creatinine Ratio 19.9 Glucose 180 H POC Glucose 193 H 251 H Calcium 9.5 11/01/23 11/01/23 16:03 20:31 PT INR Sodium Potassium Chloride Carbon Dioxide Anion Gap BUN Creatinine Est Cr Clr Drug Dosing Est GFR ( Amer) Est GFR (Non-Af Amer) BUN/Creatinine Ratio Glucose POC Glucose 227 H 223 H Calcium PG Care Time/CCT Total # of Minutes Spent Total Time Spent with Patient: Total time spent is greater than 50% in coordination of care (as documented) at patient's floor/unit and/or counseling patient: Coding Level of Care Code 48619 SUB INP/OBS CARE 2/35MIN Diagnoses Enterovirus infection B34.1 Acute bronchitis J20.9 Interstitial lung disease J84.9 Atrial fibrillation with RVR I48.91 Heart failure with mid-range ejection fraction (HFmEF) I50.22 Diabetes mellitus type 2, controlled E11.9 Complex sleep apnea syndrome G47.31 Essential hypertension I10 Hypertension type: essential hypertension History of mitral valve replacement Z95.2 Pulmonary hypertension I27.20 Atherosclerosis of [place] coronary artery of [place] heart without angina pectoris I25.10 Associated angina: without angina [place] vs. transplanted heart: [place] heart (8) Hypertension Hypertension type: essential hypertension Qualified Code(s): I10 - Essential (primary) hypertension (11) Coronary atherosclerosis of [place] coronary vessel Associated angina: without angina [place] vs. transplanted heart: [place] heart Qualified Code(s): I25.10 - Atherosclerotic heart disease of [place] coronary artery without angina pectoris
--- NOTE | 2023-11-02 05:33 | Electrocardiogram Report ---
Test Reason : Blood Pressure : */* mmHG Vent. Rate : 123 BPM Atrial Rate : * BPM P-R Int : * ms QRS Dur : 112 ms QT Int : 314 ms P-R-T Axes : * 130 31 degrees QTcB Int : 449 ms Atrial fibrillation with rapid ventricular response Incomplete right bundle branch block Left posterior fascicular block Abnormal ECG When compared with ECG of 15-Dec-2022 16:22, Incomplete right bundle branch block is now Present Confirmed by Manny Hi ([id number]) on 11/02/2023 5:33:12 AM Referred By: Confirmed By: Manny Hi
[2023-11-02] MEDS: methylPREDNISolone 30 MG in SYRINGE 0 ML IV SCH (06:23)
[2023-11-02 07:39] LABS: BUN Creatinine Ratio 25.9 (10-20); Calcium 9.2 mg/dl (8.6-10.3); Creatinine Clr Calc Pharmacy 46.7 ml/min; Est GFR (African American) 49.6 ml/min; Est GFR (Non-African American) 42.8 ml/min; Potassium 4.1 mmol/L (3.5-5.1)
[2023-11-02 07:51] LABS: INR 2.4 (0.9-1.1)
[2023-11-02] MEDS: LANTUS PER UNIT CHARGE SQ SCH (08:51)
[2023-11-02 11:15] VITALS: RESP 18; O2SAT 94
[2023-11-02 11:29] VITALS: BP 105/67; TEMP 97.5
[2023-11-02] MEDS: POTASSIUM CHLORIDE CRTAB 20 MEQ TABCR PO SCH (11:52)
[2023-11-02] MEDS: FUROSEMIDE 40 MG/4 ML VIAL IV SCH (11:57)
[2023-11-02] MEDS: FUROSEMIDE 40 MG TAB PO SCH (12:44)
[2023-11-02 14:14] VITALS: PULSE 82
--- NOTE | 2023-11-03 19:40 | Discharge Summary ---
Discharge Summary Date of Service November 03, 2023 Principal Dx & Hospital Course #1 = Principal Diagnosis (1) Enterovirus infection: 73-year-old man admitted with shortness of breath and cough, A-fib with RVR, found to have acute bronchitis related to enterovirus/rhinovirus infection Entero-/rhinovirus (+) on Respiratory BioFire --> with resulting mod-severe bronchitis treated with rocephin & solumedrol in the ER at presentation antibiotics were stopped: no pneumonia seen on admission cxr and clinically w/o bacterial pneumonia treated with steroids and bronchodilators, wheezing dyspnea improved progressively. Treated with 1 dose of IV Lasix then his usual oral dose was resumed. Significantly improved on discharge with only mild expiratory wheezing good air movement resolution of dyspnea - complete a few more days of prednisone, continue Mucinex/Robitussin, I increased his Tresiba by 5 units temporarily to cover the steroids (2) Acute bronchitis: 2nd to #1 above improving (3) Interstitial lung disease: previous CT scans of chest have shown ILD previous PFTs have shown restrictive lung disease some of his crackles could be due to ILD follows w/ [facility] (4) Atrial fibrillation with RVR: Patient was in atrial fibrillation with RVR on arrival to [facility] Rates improved with the above treatment and improvement in his respiratory i llness Continue warfarin 3mg daily Continue metoprolol succinate 75mg daily (5) Heart failure with mid-range ejection fraction (HFmEF): Last echocardiogram 12/16/2022 revealed LVEF at 45-50% and RVSP elevated at 30- 40mmHg updated echo this admission- EF now 40-45% and RV function also worse unclear whether he was volume overloaded got 1 dose of IV Lasix during this admission then resumed his usual 40 mg p.o. daily, appeared euvolemic at the time of discharge Cont meto succ daily Cont losartan daily -- as outpatient (sees Dr Naranjo) consider Entresto follow-up with cardiology as outpatient (6) Diabetes mellitus type 2, controlled: Last A1c at 7.2% on 06/21/2023 a1c 6.5% this admission temporarily increased his long-acting unit insulin by 5 units while he is on oral prednisone, then resume usual dosing (7) Complex sleep apnea syndrome: CPAP w/ 2L supplement O2 HS (8) Hypertension: Continue losartan Continue meto succinate (9) History of mitral valve replacement: 2007 echo in 2022 with normal MV measurements, etc echo - mild MR only (10) Pulmonary hypertension: 2nd to ILD, etc mild on echo today (PA Pressure 30-40) (11) Coronary atherosclerosis of [place] coronary vessel: no ischemic symptoms at this time no evidence of ACS cont Ranexa cont meto succ cont losartan cont fenofibrate not on statin - intolerant to such? Notes For Next Care Provider note EF and RV function appeared a little worse on updated echo this admission Medication Changes From Visit temporary increase in long-acting insulin while on oral prednisone for few days Admission HPI Per Admitting Provider Skinny is a pleasant 73-year-old male with PMH of T2DM, HTN, atrial fibrillation (on warfarin), abdominal aortic aneurysm dissection, stage III CKD, IPMN, and HFmrEF. Patient was referred from urgent care on 10/29 due to concern for pneumonia and decreased SpO2 at 88% while ambulating. He was also hypotensive in the 90-99 SBP range at this time. Patient reports she has had 1 week of productive cough, SOB, congestion, and fatigue. He endorses SOB both at rest and with exertion (worse with exertion). No orthopnea. He also has been wheezing and reports that he has had a productive cough (yellow sputum production) over the past week. No fevers at home; although he has been using Tylenol as needed, and Tylenol PM at night. He has also been taking Mucinex for cough and [place] as needed. He has used an albuterol inhaler 3 times over the past week, but reports this has not helped. He took his regular morning medications today; no recent change in medications. Patient manages own medicine at home. He uses supplemental oxygen at nighttime (2L NC) while using his CPAP. His home pulse ox has been around 94% this past week, but does drop when he ambulates. No PMH of DVT/PE. Patient believes he might have pick something up from his grandson, who is also sick with a cold. Patient is tachycardic at 103 bpm at time of admission; SpO2 92% on RA; vitals otherwise stable. ED course: NSS 500 mL IV x 2 DuoNeb 3 mL Solu-Medrol 60 mg IV Rocephin 2000 mg IV ROS: Patient endorses SOB at rest and with exertion, wheezing, productive cough (yellow-giraldo), night-sweats (earlier in the week; resolved), lightheadedness when walking, near syncope, chest palpitations, and abdominal cramping (attributes to coughing bad). Patient denies fever, headache, fainting, chest pain, pleuritic CP, hemoptysis, nausea, vomiting, diarrhea, or changes in urinary/bowel habits. Discharge Exam PHYSICAL EXAMINATION Last 24h vital signs reviewed, see documentation in flowsheet General: comfortable appearing, no distress, sitting up in bed HEENT: Normocephalic, atraumatic, pupils round and equal, sclerae anicteric, no conjunctival injection, moist mucus membranes Lungs: Normal respiratory effort. slight scattered coarse sounds very mild expiratory wheezing in brief bases only, good air movement, nonlabored Heart: irreg, no murmurs. No JVD Abdomen: Soft, nontender, nondistended. Bowel sounds present. Extremities: Warm, dry, well-perfused. No extremity edema. Neuro: Alert and oriented x 4, face symmetric, moves 4 extremities well Psych: Normal affect and behavior Discharge Plan Discharge Items Patient Disposition: Home - Self-Care Reason For Visit: PNEUMONIA, LOW BP, COUGH, SOB, SORE THROAT Discharge Diagnosis: acute bronchitis related to rhinovirus/enterovirus infection Condition on Discharge: Fair Activity: Resume your previous activity Non-emergency contact: Primary Care Provider Call non-emergency contact if: you have any medication questions, your symptoms worsen and you have a fever Follow-up/Referrals: ProMarco MD [Primary Care Provider] - 11/08/23 11:00 am (Hospital follow up scheduled November 07 at 11:00 with GARCIA Lozano, at the [facility] on.) Diet: Carb Consistent or DM2 and Low Sodium (2gm) Addtl Attending Provider Instructions: You were treated for acute bronchitis caused by rhinovirus/enterovirus - common respiratory viruses that cause cold-type symptoms Use your albuterol inhaler as needed for shortness of breath - you might need it 4-6 times a day for the next few days You can keep taking mucinex or robitussin for cough Take prednisone for another week to reduce inflammation from the bronchitis. The prednisone will make your blood sugar go up Increase your Tresiba by 5 units until you are done with the prednisone You will probably have to use an increased amount of Novolog before meals as well - near the top of your blood sugar range Call your doctor for advice if your blood sugar is running >300 for two checks or more, or if you are having hypoglycemias It was a pleasure taking care of you in the hospital, Brigette Nuñez MD Pending Studies at Discharge: No Stand-Alone Forms: [facility], Smoking Cessation Medications and DC Order Prescriptions: New guaifenesin [Mucinex] 600 mg Tablet Extended Release 12hr 1,200 mg PO BID Qty: 0 0RF Rx Instructions: buy over the counter prednisone 20 mg tablet See Rx Instructions .ROUTE .COMPLEX Qty: 9 0RF Rx Instructions: take 2 tabs in the morning on 11/02 and 11/03 then decrease to 1 tab in the mor kasandra for 5 more days Continued (DME) Oxygen Home Liters Per Minute See Rx Instructions .MEDSUPPLY Qty: 1 0RF Rx Instructions: 2 Liters per minute continuous (DME) Dexcom G6 Sensor Device See Rx Instructions .Route Qty: 3 11RF Rx Instructions: use for blood sugar checks (DME) Dexcom G6 Transmitter Device See Rx Instructions .Route Qty: 1 3RF Rx Instructions: use for blood sugars change out every 90 days (DME) pen needle, diabetic [BD Reyna 2nd Gen Pen Needle] 32 gauge x 5/32" needle See Rx Instructions .Route Qty: 200 8RF Rx Instructions: use for insulin injection up to six times daily insulin aspart U-100 [Novolog FlexPen U-100 Insulin] 100 unit/mL (3 mL) insulin pen 10 - 20 unit subcut TID Qty: 15 5RF Rx Instructions: as directed before meals insulin degludec [Tresiba FlexTouch U-200] 200 unit/mL (3 mL) insulin pen 32 unit subcut HS Qty: 9 5RF pregabalin 100 mg capsule 100 mg PO TID Qty: 270 3RF Arnuity Ellipta 50 mcg/actuation blister with device 1 inh INH QAM Qty: 90 3RF Jardiance 10 mg tablet 10 mg PO DAILY Qty: 90 2RF ranolazine 1,000 mg tablet extended release 12 hr 1,000 mg PO Q12H Qty: 180 3RF fenofibrate nanocrystallized 48 mg tablet 48 mg PO QDL Qty: 90 3RF furosemide 40 mg tablet 40 mg PO QAM Qty: 90 3RF Rx Instructions: takes 6 days per week; not on Sundays multivitamin [Daily Multi-Vitamin] Tablet 1 tab PO QAM albuterol sulfate 90 mcg/actuation HFA aerosol inhaler 1 - 2 puff inhalation Q4H PRN (Reason: shortness of breath) Qty: 18 3RF cyanocobalamin (vitamin B-12) 100 mcg tablet 100 mcg PO 4XWK docusate sodium 100 mg capsule 200 mg PO BID nitroglycerin 0.3 mg tablet, sublingual 0.3 mg sublingual Q5M PRN (Reason: chest pain) Qty: 10 0RF Rx Instructions: do not exceed 3 doses per episode warfarin 3 mg tablet 3 mg PO DIRECTED Protocol: Dose Management Condition: Wednesday Dose/Route: 3 mg Instruction: 1 x 3 mg tablet Condition: Wednesday Dose/Route: 3 mg Instruction: 1 x 3 mg tablet Condition: Wednesday Dose/Route: 3 mg Instruction: 1 x 3 mg tablet Condition: Wednesday Dose/Route: 3 mg Instruction: 1 x 3 mg tablet Condition: Dose/Route: 3 mg Instruction: 1 x 3 mg tablet Condition: Wednesday Dose/Route: 3 mg Instruction: 1 x 3 mg tablet Condition: Wednesday Dose/Route: 3 mg Instruction: 1 x 3 mg tablet Protocol Text: Adjustment Start Date: Wednesday10/26/23 INR Value: 2.9 INR Date: 10/26/23 Recheck Date: 11/09/23 Rx Instructions: PER ANTI COAG. (DME) Spacer for Inhaler Misc See Rx Instructions .Route Qty: 1 0RF Rx Instructions: As directed omega 7-ycs-see-fish oil [Fish Oil] 1,000 mg (120 mg-180 mg) Capsule 1 cap PO QAM metoprolol succinate 50 mg tablet extended release 24 hr 75 mg PO QPM tamsulosin 0.4 mg capsule 0.4 mg PO QAM losartan 25 mg tablet 25 mg PO QPM ascorbic acid (vitamin C) 1,000 mg capsule 1 g PO 3XWK cholecalciferol (vitamin D3) [Vitamin D3] 50 mcg (2,000 unit) Capsule 50 mcg PO QDL Discharge Orders: Discharge Order (Routine); Ordered 11/02/23 Ordered By: Brigette Teresa/Other Patient Handouts: Managing Type 2 Diabetes Admission Data Admit Date/Time: 10/30/23 19:00 Attending Provider: Brigette Nuñez Admit Provider: Kal Banda Primary Care Provider: Marco Velasco Other Interventions: Discharge Summary Assessment (RN) Last Done: 11/02/23 13:05 Hospital Stay Data Consultations 10/30/23 17:28 ED Decision to Admit Stat Pending Results Patient Have Any Pending Studies at Discharge: No Discharge Instructions Given to Patient (Per Discharging Provider) You were treated for acute bronchitis caused by rhinovirus/enterovirus - common respiratory viruses that cause cold-type symptoms Use your albuterol inhaler as needed for shortness of breath - you might need it 4-6 times a day for the next few days You can keep taking mucinex or robitussin for cough Take prednisone for another week to reduce inflammation from the bronchitis. The prednisone will make your blood sugar go up Increase your Tresiba by 5 units until you are done with the prednisone You will probably have to use an increased amount of Novolog before meals as well - near the top of your blood sugar range Call your doctor for advice if your blood sugar is running >300 for two checks or more, or if you are having hypoglycemias It was a pleasure taking care of you in the hospital, Brigette Nuñez MD Total Time Total Time Spent Total Time Spent (In Minutes): <30 Coding Level of Care Code 70114 IN/OBS DISCH 30 MIN/LESS Diagnoses Enterovirus infection B34.1 Acute bronchitis J20.9 Interstitial lung disease J84.9 Atrial fibrillation with RVR I48.91 Heart failure with mid-range ejection fraction (HFmEF) I50.22 Diabetes mellitus type 2, controlled E11.9 Complex sleep apnea syndrome G47.31 Essential hypertension I10 Hypertension type: essential hypertension History of mitral valve replacement Z95.2 Pulmonary hypertension I27.20 Atherosclerosis of [place] coronary artery of [place] heart without angina pectoris I25.10 [place] vs. transplanted heart: [place] heart Associated angina: without angina
== END 2023-11-02 15:54 | disposition home or self-care (01) | DRG 866 ==
LOC: ED 15:41 → SUATTDRO 19:00 → EDINP 19:00 → 2S 20:14
DX: J20.9 Acute bronchitis, unspecified; G47.31 Primary central sleep apnea; E11.9 Type 2 diabetes mellitus without complications; Z95.2 Presence of prosthetic heart valve; Z82.49 Family history of ischemic heart disease and other diseases of the circulatory system; I48.91 Unspecified atrial fibrillation; R74.02 Elevation of levels of lactic acid dehydrogenase [LDH]; I25.10 Atherosclerotic heart disease of native coronary artery without angina pectoris; Z79.4 Long term (current) use of insulin; Z79.899 Other long term (current) drug therapy; Z80.0 Family history of malignant neoplasm of digestive organs; Z79.01 Long term (current) use of anticoagulants; I50.22 Chronic systolic (congestive) heart failure; Z88.8 Allergy status to other drugs, medicaments and biological substances; J84.9 Interstitial pulmonary disease, unspecified; Z83.3 Family history of diabetes mellitus; I27.20 Pulmonary hypertension, unspecified; I11.0 Hypertensive heart disease with heart failure; B34.1 Enterovirus infection, unspecified